=== PATIENT | male | born 1960 | race Caucasian/White ===

== ENCOUNTER 2017-10-23 14:51 | Emergency (ER) | payer OTHER | END 2017-10-23 15:34 | disposition home or self-care (01) | LOC: PHED 14:51 | DX: R60.0 Localized edema (principal); I10 Essential (primary) hypertension; Z72.0 Tobacco use; Z79.01 Long term (current) use of anticoagulants | CPT/HCPCS: 99281 ==

== ENCOUNTER 2017-11-21 10:52 | Emergency (ER) | payer OTHER ==
[~2017-11-21] VITALS: Ht 170.2 cm; Wt 78.6 kg
[~2017-11-21 10:52] MED LIST: ASPI-183 PO; ATEN50TA PO; ATOR20TA15 PO; CHLO25TA2 PO
[2017-11-21 11:22] VITALS: BP 106/53; PULSE 63; RESP 18; TEMP 98.2; O2SAT 97
[2017-11-21 11:33] LABS: BILIRUBIN, URINE NEG (NEG); BLOOD, URINE NEG (NEG); GLUCOSE,URINE NEG (NEG); KETONE, URINE NEG (NEG); NITRITE,URINE NEG (NEG); URINE LEUKOCYTE ESTERASE NEG (NEG)
[2017-11-21 11:37] LABS: URINE COLOR YELLOW (YELLW/STRAW)
[2017-11-21 11:39] LABS: HYALINE CAST, URINE 0-2 /lpf (RARE); SQUAMOUS EPITHELIAL CELL URINE 0-5 /hpf (0-5); WBC, URINE 0-2 /hpf (0-5)
[2017-11-21] MEDS ORDERED: HYDR50TA94 PO (11:41)
--- NOTE | 2017-11-21 11:51 | PD ---
HPI Chief Complaint: Complaint Time Seen by Provider: 11:48 Travel History International Travel<30 days: No Contact w/Intl Traveler<30days: No Traveled to known affect area: No History of Present Illness HPI 57-year-old male patient presents to the ER today, started having right testicular pain 2 weeks ago after he helped somebody move a piano. He states that he has noticed a lump in that area now. He denies any fevers, vomiting, difficulty making bowel movement, diarrhea, or other issues. He states it hurts with any kind of movement. [facility]. Modifying Factors: Worse with movement Associated Signs & Symptoms: 2 weeks of right testicular pain and lump Risk Factors: None PFSH Past Medical History Hx Anticoagulant Therapy: Yes (325 MG. ASA DAILY) Cardiovascular Problems: Yes High Cholesterol: Yes COPD: Yes Diabetes: No Hypertension: Yes Respiratory: Yes (MILD COPD) Influenza Vaccination: Yes Past Surgical History Cardiac Surgery: Yes (Cadaver aortic valve 2015) Cholecystectomy: Yes Social History Alcohol Use: No Tobacco Use: Yes (/2 PPD) Substance Use: Yes (MARIJUANA) Allergies-Medications (Allergen,Severity, Reaction): Coded Allergies: erythromycin base (Verified Allergy, Severe, HIVES, 11/21/17) fenoprofen (Verified Allergy, Severe, HIVES, 11/21/17) Reported Meds & Prescriptions Reported Meds & Active Scripts Active Reported Hydroxyzine HCl 50 Mg Tab 50 Mg PO TID Aspirin 325 Mg Tab 325 Mg PO DAILY Atorvastatin (Atorvastatin Calcium) 20 Mg Tab 20 Mg PO HS Atenolol 50 Mg Tab 50 Mg PO DAILY Chlorthalidone 25 Mg Tab Unknown Dose PO DAILY Review of Systems Except as stated in HPI: all other systems reviewed are Neg Physical Exam Narrative GENERAL: Well-developed middle-age male patient currently and mild distress. Awake and oriented 3. SKIN: Focused skin assessment warm/dry. HEAD: Atraumatic. Normocephalic. EYES: Pupils equal and round. No scleral icterus. No injection or drainage. ENT: No nasal bleeding or discharge. Mucous membranes pink and moist. NECK: Trachea midline. No JVD. CARDIOVASCULAR: Regular rate and rhythm. No murmur appreciated. RESPIRATORY: No accessory muscle use. Clear to auscultation. Breath sounds equal bilaterally. GASTROINTESTINAL: Abdomen soft, non-tender, nondistended. Hepatic and splenic margins not palpable. GENITOURINARY: Circumcised. Testes descended bilaterally without evidence of rotation. No lesions or erythema. No urethral discharge. There are no signs of groin masses, but I do palpate a right inguinal hernia which is reducible. MUSCULOSKELETAL: No obvious deformities. No clubbing. No cyanosis. No edema. NEUROLOGICAL: Awake and alert. No obvious cranial nerve deficits. Motor grossly within normal limits. Normal speech. PSYCHIATRIC: Appropriate mood and affect; insight and judgment normal. Data Data Last Documented VS Vital Signs Date Time Temp Pulse Resp B/P (MAP) Pulse Ox O2 Delivery O2 Flow Rate FiO2 11/21/17 11:22 98.2 63 18 106/53 (70) 97 Orders Orders Urinalysis - C+S If Indicated (11/21/17 11:04) Us Testicles W Doppler (11/21/17 11:48) Tramadol (Ultram) (11/21/17 12:00) Labs Laboratory Tests Test 11/21/17 11:21 Urine Collection Type CLEAN CATCH Urine Color YELLOW Urine Turbidity CLEAR Urine pH 6.0 Urine Specific [place] 1.014 Urine Protein NEG mg/dL Urine Glucose (UA) NEG mg/dL Urine Ketones NEG mg/dL Urine Occult Blood NEG Urine Nitrite NEG Urine Bilirubin NEG Urine Leukocyte Esterase NEG Urine WBC 0-2 /hpf Urine Squamous Epithelial Cells 0-5 /hpf Urine Hyaline Casts 0-2 /lpf Microscopic Urinalysis Comment CULT NOT INDICATED MDM Medical Decision Making Medical Screen Exam Complete: Yes Emergency Medical Condition: Yes Medical Record Reviewed: Yes Differential Diagnosis Incarcerated hernia versus reducible hernia versus testicular mass versus abscess versus torsion Narrative Course Ultrasound shows no signs of testicular torsion, testicle has good flow. On exam, he has a reducible right inguinal hernia. At this point, my plan would be to release him with follow-up to general surgery for further definitive therapy should this continue to bother him. Return for any worsening in pain, if he is unable to self reduce the hernia, or new issues as needed. The plan has been discussed with him and he states understanding. Diagnosis Primary Impression: Right inguinal hernia Med/Other Pt SpecificInfo: Prescription(s) given Scripts Tramadol (Tramadol) 50 Mg Tab 50 MG PO Q6H Y for PAIN, #15 TAB 0 Refills Prov: Estefani Spears MD 11/21/17 Disposition: 01 DISCHARGE HOME Condition: Stable Estefani Spears MD Nov 21, 2017 11:51
[2017-11-21] MEDS ORDERED: traMADol HCL 50 MG TAB PO ONE (12:00)
--- NOTE | 2017-11-21 12:35 | RADRPT ---
EXAM DATE/TIME: 11/21/2017 12:00 [facility] COMPARISON: No previous studies available for comparison. INDICATIONS : Testicle pain. MEDICAL HISTORY : Hypercholesterolemia. Hypertension. COPD. SURGICAL HISTORY : Cholecystectomy. ENCOUNTER: Initial ACUITY: 1 week PAIN SCORE: 10/10 LOCATION: Right testicle. MEASUREMENTS: RIGHT TESTICLE: 3.4 x 1.9 x 3.4cm LEFT TESTICLE: 2.8 x 1.7 x 2.7cm FINDINGS: Positive blood flow bilaterally. Small bilateral nerve disuse. No definite inguinal hernia. Tiny 4 mm cyst upper right testicle and 7 mm cyst right epididymis. No left-sided testicular abnormal ities. CONCLUSION: 1. Positive testicular blood flow without evidence for torsion. Small bilateral varicoceles. Small cy sts on the right. Mian Watkins MD on November 21, 2017 at 12:30 Board Certified Radiologist. This report was verified electronically.
[2017-11-21] MEDS ORDERED: TRAM50TA PO (12:40)
== END 2017-11-21 12:50 | disposition home or self-care (01) ==
LOC: PHED 10:52
DX: K40.90 Unilateral inguinal hernia, without obstruction or gangrene, not specified as recurrent (principal); I10 Essential (primary) hypertension; J44.9 Chronic obstructive pulmonary disease, unspecified; Z72.0 Tobacco use; Z79.01 Long term (current) use of anticoagulants
CPT/HCPCS: 76870; 81001; 93975; 99284

== ENCOUNTER 2017-11-25 12:06 | Emergency (ER) | payer OTHER ==
[~2017-11-25] VITALS: Ht 170.2 cm; Wt 75.0 kg
[2017-11-25 12:06] VITALS: BP 107/58; PULSE 89; RESP 16; TEMP 99; O2SAT 99
[~2017-11-25 12:06] MED LIST changes: +HYDR50TA94 PO; +TRAM50TA PO
[2017-11-25] MEDS ORDERED: SODIUM CHLOR 0.9% 1000 ML INJ 1,000 ML IV SCH (12:08)
[2017-11-25 12:09] VITALS: RESP 18; O2SAT 98
[2017-11-25] MEDS ORDERED: SODIUM CHLORIDE 0.9% FLUSH 10 ML FLUSH IV FLUSH PRN (12:15)
[2017-11-25] MEDS ORDERED: MORPHINE SULFATE 4 MG/ML INJ IV PUSH ONE (12:15)
[2017-11-25] MEDS ORDERED: HYDR50TA94 PO (12:49)
[2017-11-25] MEDS ORDERED: CHLO25TA2 PO (12:49)
[2017-11-25 13:24] VITALS: BP 125/68; PULSE 67; RESP 15; TEMP 98.6; O2SAT 99
[2017-11-25 13:51] LABS: AUTOMATED NEUTROPHIL # 4.1 TH/MM3 (1.8-7.7); BASOPHIL # 0.1 TH/MM3 (0-0.2); BASOPHIL % 0.9 % (0.0-2.0); EOSINOPHIL # 0.1 TH/MM3 (0-0.4); EOSINOPHIL % 2.1 % (0.0-4.0); HEMATOCRIT 36.2 % (39.0-51.0); HEMOGLOBIN 12.3 GM/DL (13.0-17.0); LYMPH % 16.2 % (9.0-44.0); LYMPHOCYTE # 0.9 TH/MM3 (1.0-4.8); MEAN CELL VOLUME 87.4 FL (80.0-100.0); MEAN CORPUSCULAR HEMOGLOBIN 29.8 PG (27.0-34.0); MEAN CORPUSCULAR HGB CONC 34.1 % (32.0-36.0); MEAN PLATELET VOLUME 8.4 FL (7.0-11.0); MONO % 8.5 % (0.0-8.0); MONOCYTE # 0.5 TH/MM3 (0-0.9); NEUT % 72.3 % (16.0-70.0); PLATELET COUNT 172 TH/MM3 (150-450); RED BLOOD COUNT 4.14 MIL/MM3 (4.50-5.90); RED CELL DISTRIBUTION WIDTH 13.8 % (11.6-17.2); WHITE BLOOD COUNT 5.7 TH/MM3 (4.0-11.0)
[2017-11-25 13:56] LABS: INTERNATIONAL NORMALIZED RATIO 1.4 RATIO
[2017-11-25 14:17] LABS: ALBUMIN 3.7 GM/DL (3.4-5.0); ALT (GPT) 28 U/L (12-78); AST (GOT) 41 U/L (15-37); BICARBONATE 27.5 MEQ/L (21.0-32.0); BLOOD UREA NITROGEN 18 MG/DL (7-18); CALCIUM 9.1 MG/DL (8.5-10.1); CHLORIDE 106 MEQ/L (98-107); CREATININE 1.23 MG/DL (0.60-1.30); GLOMERULAR FILTRATION RATE 60 ML/MIN (>89); GLUCOSE,RANDOM 86 MG/DL (74-106); SODIUM (NA) 138 MEQ/L (136-145)
[2017-11-25 14:19] LABS: ALKALINE PHOSPHATASE 158 U/L (45-117); TOTAL BILIRUBIN ADULT 0.9 MG/DL (0.2-1.0); TOTAL PROTEIN 7.4 GM/DL (6.4-8.2)
[2017-11-25] MEDS ORDERED: oxyCODONE/ACETAMINOPHEN 5 MG/325 MG TAB PO ONE (14:30)
[2017-11-25] MEDS ORDERED: IOHEXOL 350 MG/ML 10 ML VIAL (for RAD DIAG) IVCONTRAST ONE (14:50)
--- NOTE | 2017-11-25 15:14 | RADRPT ---
EXAM DATE/TIME: 11/25/2017 14:51 [facility] COMPARISON: No previous studies available for comparison. INDICATIONS : Right lower abdomen and groin pain for two weeks. IV CONTRAST: 82 cc Omnipaque 350 (iohexol) IV ORAL CONTRAST: No oral contrast ingested. RADIATION DOSE: 8.71 CTDIvol (mGy) MEDICAL HISTORY : Cardiovascular disease. Hypertension. SURGICAL HISTORY : Cholecystectomy. ENCOUNTER: Initial ACUITY: 2 weeks PAIN SCALE: 7/10 LOCATION: Right lower quadrant abdomen TECHNIQUE: Volumetric scanning of the abdomen and pelvis was performed. Using automated exposure control and ad justment of the mA and/or kV according to patient size, radiation dose was kept as low as reasonably achievable to obtain optimal diagnostic quality images. DICOM format image data is available electro nically for review and comparison. FINDINGS: LOWER LUNGS: The visualized lower lungs are clear. LIVER: Homogeneous density without lesion. There is no dilation of the biliary tree. No gallbladder was garcia rgically removed. There is trace of fluid adjacent to the liver.. SPLEEN: Normal size without lesion. There is a trace of fluid adjacent to the spleen. PANCREAS: Within normal limits. KIDNEYS: Normal in size and shape. There is no mass, stone or hydronephrosis. ADRENAL GLANDS: Within normal limits. VASCULAR: There is no aortic aneurysm. BOWEL/MESENTERY: The stomach, small bowel, and colon demonstrate no acute abnormality. There is no free intraperitone al air. There is a trace of fluid in the upper abdomen. There is nonspecific edema throughout the mes enteric fat of the abdomen and pelvis. There is also a edema in the body wall. There is stool through out the colon. No definite inflammatory changes are seen. There are some scattered diverticula along the descending and sigmoid colon. The appendix is unremarkable. ABDOMINAL WALL: There is nonspecific edema in the body wall. RETROPERITONEUM: There is no lymphadenopathy. BLADDER: No wall thickening or mass. REPRODUCTIVE: Within normal limits. INGUINAL: There is no lymphadenopathy or hernia. MUSCULOSKELETAL: Primary degenerative changes. CONCLUSION: 1. There is a trace of ascites in the upper abdomen. 2. There is nonspecific edema in the mesenteric fat and body wall. 3. Scattered diverticulosis of the descending and sigmoid colon without definite inflammatory changes . Blas Gambino MD on November 25, 2017 at 15:08 Board Certified Radiologist. This report was verified electronically.
[2017-11-25] MEDS ORDERED: NORC5TAB PO (15:33)
[2017-11-25] MEDS ORDERED: COLA100C5 PO (15:33)
--- NOTE | 2017-11-25 15:33 | PD ---
HPI Chief Complaint: Abdominal Pain Time Seen by Provider: 12:08 Travel History International Travel<30 days: No Contact w/Intl Traveler<30days: No Traveled to known affect area: No History of Present Illness HPI Patient is a 57-year-old male who comes in complaining of a hernia. He says he has been having pain for the past 3 weeks with swelling in his right testicle. He says it keeps popping out and he is able to push it back in. He says he went to the [place], and they told him to come here to have surgery. He was here 4 days ago and was discharged home to follow-up with general surgery. He has not taken anything for his pain. It seems that movement seems to make the pain worse. He says he is having constipation, his last bowel movement was yesterday. He denies any nausea or vomiting. He denies fever or chills. Severity is mild to moderate. PFSH Past Medical History Hx Anticoagulant Therapy: Yes (325 MG. ASA DAILY) Cardiovascular Problems: Yes High Cholesterol: Yes COPD: Yes Diabetes: No Diminished Hearing: No Hypertension: Yes Respiratory: Yes (MILD COPD) Tetanus Vaccination: < 5 Years Influenza Vaccination: Yes Past Surgical History Cardiac Surgery: Yes (Cadaver aortic valve 2016) Cholecystectomy: Yes Social History Alcohol Use: No Tobacco Use: Yes (1/2 PPD) Substance Use: Yes (MARIJUANA) Allergies-Medications (Allergen,Severity, Reaction): Coded Allergies: erythromycin base (Verified Allergy, Severe, HIVES, 11/25/17) fenoprofen (Verified Allergy, Severe, HIVES, 11/25/17) Reported Meds & Prescriptions Reported Meds & Active Scripts Active Oxycodone (Oxycodone HCl) 5 Mg Cap 5 Mg PO Q6H PRN Colace (Docusate Sodium) 100 Mg Capsule 100 Mg PO HS Tramadol (Tramadol HCl) 50 Mg Tab 50 Mg PO Q6H PRN Reported Hydroxyzine HCl 50 Mg Tab 50 Mg PO BID PRN Chlorthalidone 25 Mg Tab 25 Mg PO DAILY Aspirin 325 Mg Tab 325 Mg PO DAILY Atorvastatin (Atorvastatin Calcium) 20 Mg Tab 20 Mg PO HS Atenolol 50 Mg Tab 50 Mg PO DAILY Review of Systems Except as stated in HPI: all other systems reviewed are Neg General / Constitutional: No: Fever, Chills HENT: No: Headaches, Lightheadedness Cardiovascular: No: Chest Pain or Discomfort Respiratory: No: Shortness of Breath Gastrointestinal: Positive: Abdominal Pain, Constipation, No: Nausea, Vomiting Musculoskeletal: No: Myalgias, Edema Skin: No Rash, No Change in Pigmentation Neurologic: No: Weakness, Dizziness Physical Exam Narrative GENERAL: Awake and alert, no acute distress. SKIN: Focused skin assessment warm/dry. No wounds or signs of infection. HEAD: Atraumatic. Normocephalic. EYES: Pupils equal and round. No scleral icterus. ENT: Mucous membranes pink and moist. NECK: Trachea midline. No JVD. CARDIOVASCULAR: Regular rate and rhythm. No murmur appreciated. RESPIRATORY: No accessory muscle use. Clear to auscultation. Breath sounds equal bilaterally. GASTROINTESTINAL: Abdomen soft, non-tender, nondistended. Inguinal hernia has been fully reduced. MUSCULOSKELETAL: No obvious deformities. No clubbing. No cyanosis. No edema. NEUROLOGICAL: Awake and alert. No obvious cranial nerve deficits. Motor grossly within normal limits. Normal speech. PSYCHIATRIC: Appropriate mood and affect; insight and judgment normal. Data Data Last Documented VS Vital Signs Date Time Temp Pulse Resp B/P (MAP) Pulse Ox O2 Delivery O2 Flow Rate FiO2 11/25/17 13:24 98.6 67 15 125/68 (87) 99 Room Air Orders Orders Complete Blood Count With Diff (11/25/17 12:08) Comprehensive Metabolic Panel (11/25/17 12:08) Lactic Acid (11/25/17 12:08) Prothrombin Time / Inr (Pt) (11/25/17 12:08) Act Partial Throm Time (Ptt) (11/25/17 12:08) Ct Abd/Pel W Iv Contrast(Rout) (11/25/17 12:08) Iv Access Insert/Monitor (11/25/17 12:08) Ecg Monitoring (11/25/17 12:08) Oximetry (11/25/17 12:08) Morphine Inj (Morphine Inj) (11/25/17 12:15) Sodium Chlor 0.9% 1000 Ml Inj (Ns 1000 M (11/25/17 12:08) Sodium Chloride 0.9% Flush (Ns Flush) (11/25/17 12:15) Oxycodone-Acetamin 5-325 Mg (Percocet (11/25/17 14:30) Iohexol 350 Inj (Omnipaque 350 Inj) (11/25/17 14:50) Mandatory Outpatient Referral (11/25/17 15:33) Ed Discharge Order (11/25/17 15:33) Labs Laboratory Tests Test 11/25/17 11:52 11/25/17 12:40 White Blood Count 5.7 TH/MM3 Red Blood Count 4.14 MIL/MM3 Hemoglobin 12.3 GM/DL Hematocrit 36.2 % Mean Corpuscular Volume 87.4 FL Mean Corpuscular Hemoglobin 29.8 PG Mean Corpuscular Hemoglobin Concent 34.1 % Red Cell Distribution Width 13.8 % Platelet Count 172 TH/MM3 Mean Platelet Volume 8.4 FL Neutrophils (%) (Auto) 72.3 % Lymphocytes (%) (Auto) 16.2 % Monocytes (%) (Auto) 8.5 % Eosinophils (%) (Auto) 2.1 % Basophils (%) (Auto) 0.9 % Neutrophils # (Auto) 4.1 TH/MM3 Lymphocytes # (Auto) 0.9 TH/MM3 Monocytes # (Auto) 0.5 TH/MM3 Eosinophils # (Auto) 0.1 TH/MM3 Basophils # (Auto) 0.1 TH/MM3 CBC Comment DIFF FINAL Differential Comment Prothrombin Time 14.0 SEC Prothromb Time International Ratio 1.4 RATIO Activated Partial Thromboplast Time 29.2 SEC Blood Urea Nitrogen 18 MG/DL Creatinine 1.23 MG/DL Random Glucose 86 MG/DL Total Protein 7.4 GM/DL Albumin 3.7 GM/DL Calcium Level 9.1 MG/DL Alkaline Phosphatase 158 U/L Aspartate Amino Transf (AST/SGOT) 41 U/L Alanine Aminotransferase (ALT/SGPT) 28 U/L Total Bilirubin 0.9 MG/DL Sodium Level 138 MEQ/L Potassium Level 4.1 MEQ/L Chloride Level 106 MEQ/L Carbon Dioxide Level 27.5 MEQ/L Anion Gap 5 MEQ/L Estimat Glomerular Filtration Rate 60 ML/MIN Lactic Acid Level 0.8 mmol/L MDM Medical Decision Making Medical Screen Exam Complete: Yes Emergency Medical Condition: Yes Medical Record Reviewed: Yes Differential Diagnosis Strangulated hernia versus incarcerated hernia versus constipation Narrative Course Patient is a 57-year-old male comes in complaining of hernia pain. Exam shows a completely reduced hernia, no abnormalities. IV established, labs sent. Labs show no acute abnormalities. CT abdomen and pelvis shows some nonspecific findings. Last 24 hours Impressions Abdomen/Pelvis CT 11/25/17 1208 Signed Impressions: Service Date/Time: Saturday, November 25, 2017 14:51 - CONCLUSION: 1. There is a trace of ascites in the upper abdomen. 2. There is nonspecific edema in the mesenteric fat and body wall. 3. Scattered diverticulosis of the descending and sigmoid colon without definite inflammatory changes. Blas Gambino MD Patient given pain medicine. He is advised to follow-up as an outpatient with a general surgeon to have elective repair of his inguinal hernia. Referral placed for the patient. Patient discharged with prescriptions for pain medicine as well as Colace. Advised the pain medicine may make him more constipated. Advised follow-up with a primary care doctor. Advised to return to the ED as needed for any worsening symptoms. Diagnosis Primary Impression: Inguinal hernia Qualified Codes: K40.90 - Unilateral inguinal hernia, without obstruction or gangrene, not specified as recurrent Referrals: Alexy Paige MD call for appointment Patient Instructions: General Instructions, Inguinal Hernia (ED) Additional Instructions: Take pain medicine as needed. Be careful as it may make you more constipated. Follow up with general surgery. Return to the ED as needed for any worsening symptoms. Scripts Oxycodone (Oxycodone) 5 Mg Cap 5 MG PO Q6H Y for PAIN, #10 CAP 0 Refills Prov: Briana Cerda MD 11/25/17 Docusate Sodium (Colace) 100 Mg Capsule 100 MG PO HS for Prevent Constipation, #30 CAP 0 Refills Prov: Briana Cerda MD 11/25/17 Disposition: DISCHARGE HOME Condition: Stable Briana Cerda MD Nov 25, 2017 15:33
[2017-11-25 15:37] VITALS: RESP 15
[2017-11-25] MEDS ORDERED: OXYC1CAP PO (15:39)
[2017-11-25 15:42] VITALS: BP 133/76; TEMP 97.8
== END 2017-11-25 15:42 | disposition home or self-care (01) ==
LOC: NEPC 12:06
DX: K40.90 Unilateral inguinal hernia, without obstruction or gangrene, not specified as recurrent (principal); K57.30 Diverticulosis of large intestine without perforation or abscess without bleeding; I10 Essential (primary) hypertension; I25.10 Atherosclerotic heart disease of native coronary artery without angina pectoris; J44.9 Chronic obstructive pulmonary disease, unspecified; E78.00 Pure hypercholesterolemia, unspecified; F17.210 Nicotine dependence, cigarettes, uncomplicated; Z88.1 Allergy status to other antibiotic agents; Z79.82 Long term (current) use of aspirin; Z79.899 Other long term (current) drug therapy
CPT/HCPCS: 74177; 80053; 83605; 85025; 85610; 85730; 96361; 96374; 99285; J2270; J7030; Q9967

== ENCOUNTER 2017-12-01 10:17 | Emergency (ER) | payer OTHER ==
[~2017-12-01] VITALS: Ht 167.6 cm; Wt 80.0 kg
[~2017-12-01 10:17] MED LIST changes: +COLA100C5 PO; +OXYC1CAP PO
[2017-12-01 10:27] VITALS: BP 124/84; PULSE 81; RESP 16; TEMP 97.8; O2SAT 99
[2017-12-01 10:41] VITALS: O2SAT 99
[2017-12-01] MEDS ORDERED: SODIUM CHLORIDE 0.9% FLUSH 10 ML FLUSH IVF PRN (10:45)
--- NOTE | 2017-12-01 10:55 | PD ---
HPI Chief Complaint: Cardiac Complaint Time Seen by Provider: 10:30 Travel History International Travel<30 days: No Contact w/Intl Traveler<30days: No Traveled to known affect area: No History of Present Illness HPI This is a 57-year-old male who presents for palpitations. He states that this morning, it felt like his heart was racing. He had not yet taken his beta- melanie which he usually does first thing. He then took his beta-melanie and the palpitations subsided. He also states that he had more salt than usual last night. He is not sure if this is contributing. No chest pain, shortness of breath or diaphoresis. He has been otherwise well without vomiting, diarrhea , cough, congestion. Symptoms are mild in severity. Onset gradual. He did take his daily medication this morning. No known alleviating or aggravating factors. No syncope or lightheadedness. Patient states that he has had atrial fibrillation in the past. PFSH Past Medical History Hx Anticoagulant Therapy: Yes (325 MG. ASA DAILY) Cardiovascular Problems: Yes High Cholesterol: Yes COPD: Yes Coronary Artery Disease: Yes Diabetes: No Diminished Hearing: No Hypertension: Yes Respiratory: Yes (MILD COPD) Past Surgical History Cardiac Surgery: Yes (Cadaver aortic valve 2016) Cholecystectomy: Yes Social History Alcohol Use: No Tobacco Use: Yes (2 PPD) Substance Use: Yes (MARIJUANA) Allergies-Medications (Allergen,Severity, Reaction): Coded Allergies: erythromycin base (Verified Allergy, Severe, HIVES, 12/01/17) fenoprofen (Verified Allergy, Severe, HIVES, 12/01/17) Reported Meds & Prescriptions Reported Meds & Active Scripts Active Colace (Docusate Sodium) 100 Mg Capsule 100 Mg PO HS Tramadol (Tramadol HCl) 50 Mg Tab 50 Mg PO Q6H PRN Reported Hydroxyzine HCl 50 Mg Tab 50 Mg PO BID PRN Chlorthalidone 25 Mg Tab 25 Mg PO DAILY Aspirin 325 Mg Tab 325 Mg PO DAILY Atorvastatin (Atorvastatin Calcium) 20 Mg Tab 20 Mg PO HS Atenolol 50 Mg Tab 50 Mg PO DAILY Review of Systems Except as stated in HPI: all other systems reviewed are Neg Physical Exam Narrative GENERAL: Alert, well nourished, well appearing patient resting on the bed in no acute distress. Vital Signs reviewed SKIN: Focused skin assessment warm/dry. HEAD: Atraumatic. Normocephalic. EYES: Pupils equal and round. No scleral icterus. No injection or drainage. ENT: No nasal bleeding or discharge. Mucous membranes pink and moist. NECK: Trachea midline. No JVD. Spontaneous, painless full range of motion with no meningismus CARDIOVASCULAR: Regular rate and rhythm. No murmur appreciated. Extremities warm and well perfused with bounding peripheral pulses RESPIRATORY: No accessory muscle use. Clear to auscultation. Breath sounds equal bilaterally. Breathing easily and speaking in full sentences GASTROINTESTINAL: Abdomen soft, non-tender, nondistended. Normal bowel sounds. No rigid, rebound, guarding MUSCULOSKELETAL: No obvious deformities. No clubbing. No cyanosis. No edema. Compartments are soft NEUROLOGICAL: Awake and alert. No obvious cranial nerve deficits. Motor grossly within normal limits. Normal speech. Sensation intact. Normal gait Data Data Last Documented VS Vital Signs Date Time Temp Pulse Resp B/P (MAP) Pulse Ox O2 Delivery O2 Flow Rate FiO2 12/01/17 10:41 99 12/01/17 10:38 79 18 Room Air 12/01/17 10:27 97.8 124/84 (97) Orders Orders Electrocardiogram (12/01/17 10:38) Basic Metabolic Panel (Bmp) (12/01/17 10:38) Ckmb (Isoenzyme) Profile (12/01/17 10:38) Complete Blood Count With Diff (12/01/17 10:38) Magnesium (Mg) (12/01/17 10:38) Prothrombin Time / Inr (Pt) (12/01/17 10:38) Act Partial Throm Time (Ptt) (12/01/17 10:38) Troponin I (12/01/17 10:38) Ecg Monitoring (12/01/17 10:38) Iv Access Insert/Monitor (12/01/17 10:38) Oximetry (12/01/17 10:38) Sodium Chloride 0.9% Flush (Ns Flush) (12/01/17 10:45) Chest, Pa & Lat (12/01/17 10:38) Ondansetron Inj (Zofran Inj) (12/01/17 11:00) Ondansetron Odt (Zofran Odt) (12/01/17 11:00) Ed Discharge Order (12/01/17 11:31) Labs Laboratory Tests Test 12/01/17 10:52 12/01/17 11:20 Prothrombin Time 13.0 SEC Prothromb Time International Ratio 1.3 RATIO Activated Partial Thromboplast Time 26.9 SEC Blood Urea Nitrogen 19 MG/DL Creatinine 1.20 MG/DL Random Glucose 98 MG/DL Calcium Level 8.4 MG/DL Magnesium Level 2.0 MG/DL Sodium Level 137 MEQ/L Potassium Level 4.9 MEQ/L Chloride Level 104 MEQ/L Carbon Dioxide Level 26.5 MEQ/L Anion Gap 7 MEQ/L Estimat Glomerular Filtration Rate 62 ML/MIN Total Creatine Kinase 98 U/L Troponin I LESS THAN 0.02 NG/ML White Blood Count 4.3 TH/MM3 Red Blood Count 4.02 MIL/MM3 Hemoglobin 12.1 GM/DL Hematocrit 35.5 % Mean Corpuscular Volume 88.4 FL Mean Corpuscular Hemoglobin 30.0 PG Mean Corpuscular Hemoglobin Concent 33.9 % Red Cell Distribution Width 13.4 % Platelet Count 184 TH/MM3 Mean Platelet Volume 7.4 FL Neutrophils (%) (Auto) 63.2 % Lymphocytes (%) (Auto) 17.6 % Monocytes (%) (Auto) 13.0 % Eosinophils (%) (Auto) 5.3 % Basophils (%) (Auto) 0.9 % Neutrophils # (Auto) 2.7 TH/MM3 Lymphocytes # (Auto) 0.8 TH/MM3 Monocytes # (Auto) 0.6 TH/MM3 Eosinophils # (Auto) 0.2 TH/MM3 Basophils # (Auto) 0.0 TH/MM3 CBC Comment DIFF FINAL Differential Comment MDM Medical Decision Making Medical Screen Exam Complete: Yes Emergency Medical Condition: Yes Medical Record Reviewed: Yes Interpretation(s) EKG shows sinus rhythm with a rate of 73. Left bundle branch block is present. Chest x-ray shows no acute process Laboratory Tests Test 12/01/17 10:52 12/01/17 11:20 Prothrombin Time 13.0 SEC Prothromb Time International Ratio 1.3 RATIO Activated Partial Thromboplast Time 26.9 SEC Blood Urea Nitrogen 19 MG/DL Creatinine 1.20 MG/DL Random Glucose 98 MG/DL Calcium Level 8.4 MG/DL Magnesium Level 2.0 MG/DL Sodium Level 137 MEQ/L Potassium Level 4.9 MEQ/L Chloride Level 104 MEQ/L Carbon Dioxide Level 26.5 MEQ/L Anion Gap 7 MEQ/L Estimat Glomerular Filtration Rate 62 ML/MIN Total Creatine Kinase 98 U/L Troponin I LESS THAN 0.02 NG/ML White Blood Count 4.3 TH/MM3 Red Blood Count 4.02 MIL/MM3 Hemoglobin 12.1 GM/DL Hematocrit 35.5 % Mean Corpuscular Volume 88.4 FL Mean Corpuscular Hemoglobin 30.0 PG Mean Corpuscular Hemoglobin Concent 33.9 % Red Cell Distribution Width 13.4 % Platelet Count 184 TH/MM3 Mean Platelet Volume 7.4 FL Neutrophils (%) (Auto) 63.2 % Lymphocytes (%) (Auto) 17.6 % Monocytes (%) (Auto) 13.0 % Eosinophils (%) (Auto) 5.3 % Basophils (%) (Auto) 0.9 % Neutrophils # (Auto) 2.7 TH/MM3 Lymphocytes # (Auto) 0.8 TH/MM3 Monocytes # (Auto) 0.6 TH/MM3 Eosinophils # (Auto) 0.2 TH/MM3 Basophils # (Auto) 0.0 TH/MM3 CBC Comment DIFF FINAL Differential Comment Differential Diagnosis Atrial fibrillation, PVCs, anxiety, electrolyte abnormality, atypical angina Narrative Course Patient was placed on a management technician. IV access was established. Labs, imaging were performed. Patient is in normal sinus rhythm. He has had no arrhythmia while in the emergency department. He is no longer feeling palpitations. He has had no chest pain or shortness of breath or diaphoresis. Patient is stable for discharge with supportive care and close outpatient follow -up with primary physician and compressor assembler. He understands he needs to follow- up in 3 days. He understands it is his responsibility to establish and follow through with these appointments. Patient understands the importance of close outpatient follow-up. He understands he may require further testing and treatment as an outpatient. He understands strict return indications. He is comfortable with this plan and eager to go home. Diagnosis Primary Impression: Intermittent palpitations Referrals: Estate Tax Examiner 3 days Primary Care Physician 3 days Patient Instructions: General Instructions, Heart Palpitations (DC) Additional Instructions: Continue current home medications. You must follow-up with primary physician and compressor assembler within 3 days. Call today to make the appointment. You may require further testing and treatment as an outpatient. Med/Other Pt SpecificInfo: No Change to Meds Disposition: 01 DISCHARGE HOME Condition: Stable RyanJanice. MD Dec 01, 2017 10:54
[2017-12-01] MEDS ORDERED: ONDANSETRON HCL 4 MG/2 ML VIAL IV PUSH ONE (11:00)
[2017-12-01] MEDS ORDERED: ONDANSETRON ODT 4 MG TAB PO ONE (11:00)
[2017-12-01 11:08] LABS: CHLORIDE 104 MEQ/L (98-107); SODIUM (NA) 137 MEQ/L (136-145)
[2017-12-01 11:11] LABS: BICARBONATE 26.5 MEQ/L (21.0-32.0); BLOOD UREA NITROGEN 19 MG/DL (7-18); CALCIUM 8.4 MG/DL (8.5-10.1); GLUCOSE,RANDOM 98 MG/DL (74-106); INTERNATIONAL NORMALIZED RATIO 1.3 RATIO
[2017-12-01 11:15] LABS: GLOMERULAR FILTRATION RATE 62 ML/MIN (>89)
[2017-12-01 11:19] LABS: TROPONIN I LESS THAN 0.02 NG/ML (0.02-0.05)
[2017-12-01 11:26] LABS: AUTOMATED NEUTROPHIL # 2.7 TH/MM3 (1.8-7.7); BASOPHIL % 0.9 % (0.0-2.0); EOSINOPHIL # 0.2 TH/MM3 (0-0.4); EOSINOPHIL % 5.3 % (0.0-4.0); HEMATOCRIT 35.5 % (39.0-51.0); HEMOGLOBIN 12.1 GM/DL (13.0-17.0); LYMPH % 17.6 % (9.0-44.0); LYMPHOCYTE # 0.8 TH/MM3 (1.0-4.8); MEAN CELL VOLUME 88.4 FL (80.0-100.0); MEAN CORPUSCULAR HGB CONC 33.9 % (32.0-36.0); MEAN PLATELET VOLUME 7.4 FL (7.0-11.0); MONOCYTE # 0.6 TH/MM3 (0-0.9); NEUT % 63.2 % (16.0-70.0); PLATELET COUNT 184 TH/MM3 (150-450); RED BLOOD COUNT 4.02 MIL/MM3 (4.50-5.90); RED CELL DISTRIBUTION WIDTH 13.4 % (11.6-17.2); WHITE BLOOD COUNT 4.3 TH/MM3 (4.0-11.0)
--- NOTE | 2017-12-01 11:28 | RADRPT ---
EXAM DATE/TIME: 12/01/2017 10:45 [facility] COMPARISON: No previous studies available for comparison. INDICATIONS : Heart palpatations & high blood pressure. MEDICAL HISTORY : Hypercholesterolemia. Chronic obstructive pulmonary disease. Hypertension. CAD. A-fib. SURGICAL HISTORY : CABG. Fusion, cervical. ENCOUNTER: Initial ACUITY: 1 day PAIN SCORE: 0/10 LOCATION: chest FINDINGS: Median sternotomy wires, mediastinal clips, ACDF hardware overlying the cervical spine noted. There a re degenerative changes of the thoracic spine. The lungs are clear. Cardiomegaly. CONCLUSION: No acute disease. Jayden Rico MD on December 01, 2017 at 11:26 Board Certified Radiologist. This report was verified electronically.
--- NOTE | 2017-12-02 10:13 | EKG ---
Date Performed: 12/01/2017 Time Performed: 10:38:59 PTAGE: 57 years EKG: Sinus rhythm WITH FIRST DEGREE AV BLOCK LEFT BUNDLE BRANCH BLOCK ABNORMAL ECG NO PREVIOUS TRACING DOCTOR: Pablo Polo Interpretating Date/Time 12/02/2017 10:11:11
== END 2017-12-01 11:45 | disposition home or self-care (01) ==
LOC: PHED 10:17
DX: R00.2 Palpitations (principal); I10 Essential (primary) hypertension; I25.10 Atherosclerotic heart disease of native coronary artery without angina pectoris; I48.91 Unspecified atrial fibrillation; E78.00 Pure hypercholesterolemia, unspecified; J44.9 Chronic obstructive pulmonary disease, unspecified; F17.210 Nicotine dependence, cigarettes, uncomplicated; Z88.1 Allergy status to other antibiotic agents; Z88.8 Allergy status to other drugs, medicaments and biological substances; Z79.82 Long term (current) use of aspirin; Z79.899 Other long term (current) drug therapy
CPT/HCPCS: 71046; 80048; 82550; 83735; 84484; 85025; 85610; 85730; 93005; 99285

== ENCOUNTER 2017-12-08 16:44 | Inpatient (IN) | payer OTHER ==
[~2017-12-08] VITALS: Ht 175.3 cm; Wt 79.9 kg
[~2017-12-08 16:44] MED LIST changes: -OXYC1CAP PO
[2017-12-08 16:54] VITALS: BP 148/82; PULSE 80; RESP 16; TEMP 99; O2SAT 98
[2017-12-08] MEDS ORDERED: DIATRIZOATE MEGLUM/DIATRIZOATE SOD 9 ML CUP ONE (17:23)
[2017-12-08 17:34] VITALS: BP 134/87; PULSE 70; RESP 20; O2SAT 98
[2017-12-08 17:40] LABS: AUTOMATED NEUTROPHIL # 3.6 TH/MM3 (1.8-7.7); BASOPHIL # 0.1 TH/MM3 (0-0.2); BASOPHIL % 2.3 % (0.0-2.0); EOSINOPHIL # 0.3 TH/MM3 (0-0.4); EOSINOPHIL % 5.3 % (0.0-4.0); HEMATOCRIT 36.3 % (39.0-51.0); HEMOGLOBIN 11.7 GM/DL (13.0-17.0); LYMPH % 17.9 % (9.0-44.0); MEAN CELL VOLUME 88.1 FL (80.0-100.0); MEAN CORPUSCULAR HEMOGLOBIN 28.4 PG (27.0-34.0); MEAN CORPUSCULAR HGB CONC 32.3 % (32.0-36.0); MEAN PLATELET VOLUME 7.6 FL (7.0-11.0); MONO % 9.3 % (0.0-8.0); MONOCYTE # 0.5 TH/MM3 (0-0.9); NEUT % 65.2 % (16.0-70.0); PLATELET COUNT 177 TH/MM3 (150-450); RED BLOOD COUNT 4.11 MIL/MM3 (4.50-5.90); RED CELL DISTRIBUTION WIDTH 13.4 % (11.6-17.2); WHITE BLOOD COUNT 5.5 TH/MM3 (4.0-11.0)
[2017-12-08] MEDS ORDERED: ONDANSETRON HCL 4 MG/2 ML VIAL IV PUSH ONE (17:45)
[2017-12-08] MEDS ORDERED: MORPHINE SULFATE 2 MG/ML INJ IV PUSH ONE (17:45)
[2017-12-08 17:52] LABS: CHLORIDE 103 MEQ/L (98-107); SODIUM (NA) 137 MEQ/L (136-145)
[2017-12-08 17:55] LABS: CALCIUM 9.2 MG/DL (8.5-10.1)
[2017-12-08 17:56] LABS: ALBUMIN 3.7 GM/DL (3.4-5.0); BICARBONATE 28.3 MEQ/L (21.0-32.0); BLOOD UREA NITROGEN 28 MG/DL (7-18); GLUCOSE,RANDOM 91 MG/DL (74-106)
[2017-12-08 17:59] LABS: ALT (GPT) 33 U/L (12-78); AST (GOT) 46 U/L (15-37); GLOMERULAR FILTRATION RATE 57 ML/MIN (>89)
[2017-12-08 18:00] LABS: TOTAL BILIRUBIN ADULT 0.7 MG/DL (0.2-1.0); TOTAL PROTEIN 7.8 GM/DL (6.4-8.2)
[2017-12-08 18:02] LABS: ALKALINE PHOSPHATASE 228 U/L (45-117)
[2017-12-08 18:15] LABS: INTERNATIONAL NORMALIZED RATIO 1.3 RATIO; PROTHROMBIN TIME - PATIENT 13.3 SEC (9.8-11.6)
--- NOTE | 2017-12-08 18:19 | PD ---
HPI Chief Complaint: Lump, Cyst, Hernia Time Seen by Provider: 16:50 Travel History International Travel<30 days: No Contact w/Intl Traveler<30days: No Traveled to known affect area: No History of Present Illness HPI This is a 57-year-old male who presented to the ER complaining of lower abdominal pain. Patient has history of right inguinal hernia and he was here back in November and hernia was reducible at that time and he was discharged with pain medications and constipation medications. For the last few weeks he says that the hernia was popping out and was able to push it back in place but in the last few days he noticed that pain is unbearable and is unable to push the hernia back in place. Pain is located in the right lower pelvic area, 8 out of 10, dull, radiates to the pelvis, nothing makes it better or worse. He denies any fevers chills or night sweats last bowel movement was this morning which was normal, patient is able to pass gas with no problems. PFSH Past Medical History Hx Anticoagulant Therapy: Yes (325 MG. ASA DAILY) Cardiovascular Problems: Yes High Cholesterol: Yes COPD: Yes Coronary Artery Disease: Yes Diabetes: No Diminished Hearing: No Hypertension: Yes Respiratory: Yes (MILD COPD) Tetanus Vaccination: < 5 Years Influenza Vaccination: Yes Past Surgical History Cardiac Surgery: Yes (Cadaver aortic valve 2015) Cholecystectomy: Yes Social History Alcohol Use: No Tobacco Use: Yes (1/2 PPD) Substance Use: Yes (MARIJUANA) Allergies-Medications (Allergen,Severity, Reaction): Coded Allergies: erythromycin base (Verified Allergy, Severe, HIVES, 12/08/17) fenoprofen (Verified Allergy, Severe, HIVES, 12/08/17) Reported Meds & Prescriptions Reported Meds & Active Scripts Active Reported Hydroxyzine HCl 50 Mg Tab 50 Mg PO BID PRN Aspirin 325 Mg Tab 325 Mg PO DAILY Atorvastatin (Atorvastatin Calcium) 20 Mg Tab 20 Mg PO HS Atenolol 50 Mg Tab 50 Mg PO DAILY Review of Systems Except as stated in HPI: all other systems reviewed are Neg General / Constitutional: No: Fever Eyes: No: Diploplia HENT: No: Headaches Cardiovascular: No: Chest Pain or Discomfort Physical Exam Narrative GENERAL: Alert 3 no acute distress. SKIN: Focused skin assessment warm/dry. HEAD: Atraumatic. Normocephalic. EYES: Pupils equal and round. No scleral icterus. No injection or drainage. ENT: No nasal bleeding or discharge. Mucous membranes pink and moist. NECK: Trachea midline. No JVD. CARDIOVASCULAR: Regular rate and rhythm. No murmur appreciated. RESPIRATORY: No accessory muscle use. Clear to auscultation. Breath sounds equal bilaterally. GASTROINTESTINAL: Small right inguinal hernia, severely tender to palpation, unable to reduce it due to pain. Abdomen soft, non-tender, nondistended. Hepatic and splenic margins not palpable. MUSCULOSKELETAL: No obvious deformities. No clubbing. No cyanosis. No edema. NEUROLOGICAL: Awake and alert. No obvious cranial nerve deficits. Motor grossly within normal limits. Normal speech. PSYCHIATRIC: Appropriate mood and affect; insight and judgment normal. Data Data Last Documented VS Vital Signs Date Time Temp Pulse Resp B/P (MAP) Pulse Ox O2 Delivery O2 Flow Rate FiO2 12/08/17 17:34 70 20 134/87 (103) 98 Room Air 12/08/17 16:[address] Abd/Pel W/O Iv Contrast (12/08/17 ) Comprehensive Metabolic Panel (12/08/17 17:03) Complete Blood Count With Diff (12/08/17 17:03) Lipase (12/08/17 17:03) Prothrombin Time / Inr (Pt) (12/08/17 17:03) Act Partial Throm Time (Ptt) (12/08/17 17:03) Diatrizoate Liq ( Gastroview Liq) (12/08/17 17:23) Morphine Inj (Morphine Inj) (12/08/17 17:45) Ondansetron Inj (Zofran Inj) (12/08/17 17:45) Morphine Inj (Morphine Inj) (12/08/17 18:45) Labs Laboratory Tests Test 12/08/17 17:25 White Blood Count 5.5 TH/MM3 Red Blood Count 4.11 MIL/MM3 Hemoglobin 11.7 GM/DL Hematocrit 36.3 % Mean Corpuscular Volume 88.1 FL Mean Corpuscular Hemoglobin 28.4 PG Mean Corpuscular Hemoglobin Concent 32.3 % Red Cell Distribution Width 13.4 % Platelet Count 177 TH/MM3 Mean Platelet Volume 7.6 FL Neutrophils (%) (Auto) 65.2 % Lymphocytes (%) (Auto) 17.9 % Monocytes (%) (Auto) 9.3 % Eosinophils (%) (Auto) 5.3 % Basophils (%) (Auto) 2.3 % Neutrophils # (Auto) 3.6 TH/MM3 Lymphocytes # (Auto) 1.0 TH/MM3 Monocytes # (Auto) 0.5 TH/MM3 Eosinophils # (Auto) 0.3 TH/MM3 Basophils # (Auto) 0.1 TH/MM3 CBC Comment DIFF FINAL Differential Comment Prothrombin Time 13.3 SEC Prothromb Time International Ratio 1.3 RATIO Activated Partial Thromboplast Time 27.2 SEC Blood Urea Nitrogen 28 MG/DL Creatinine 1.30 MG/DL Random Glucose 91 MG/DL Total Protein 7.8 GM/DL Albumin 3.7 GM/DL Calcium Level 9.2 MG/DL Alkaline Phosphatase 228 U/L Aspartate Amino Transf (AST/SGOT) 46 U/L Alanine Aminotransferase (ALT/SGPT) 33 U/L Total Bilirubin 0.7 MG/DL Sodium Level 137 MEQ/L Potassium Level 4.9 MEQ/L Chloride Level 103 MEQ/L Carbon Dioxide Level 28.3 MEQ/L Anion Gap 6 MEQ/L Estimat Glomerular Filtration Rate 57 ML/MIN Lipase 107 U/L MDM Medical Decision Making Medical Screen Exam Complete: Yes Emergency Medical Condition: Yes Differential Diagnosis Incarcerated versus strangulated hernia, constipation, bowel obstruction. Narrative Course This is a 57-year-old male who presents the ER complaining of right inguinal hernia that has been more painful in the last few days. Patient says that he used to be able to push it back and please but now is unable to. At the ER I tried to reduce the hernia but the patient was in severe pain even after [address] scan was ordered and is pending results. Patient will be signed out to the next team. Pending disposition. Diagnosis Primary Impression: Inguinal hernia Qualified Codes: K40.91 - Unilateral inguinal hernia, without obstruction or gangrene, recurrent Condition: Stable Lasha Cantu MD Dec 08, 2017 18:19
[2017-12-08] MEDS ORDERED: MORPHINE SULFATE 4 MG/ML INJ IV PUSH ONE (18:45)
--- NOTE | 2017-12-08 19:32 | PD ---
Physical Exam Time Seen by Provider: 19:[address] Corrales with this patient with me to check the results of the CT scan and make a disposition. He was unable to reduce the hernia. Data Data Last Documented VS Vital Signs Date Time Temp Pulse Resp B/P (MAP) Pulse Ox O2 Delivery O2 Flow Rate FiO2 12/08/17 19:35 68 16 108/58 (75) 98 Room Air 12/08/17 16:[address] Abd/Pel W/O Iv Contrast (12/08/17 ) Comprehensive Metabolic Panel (12/08/17 17:03) Complete Blood Count With Diff (12/08/17 17:03) Lipase (12/08/17 17:03) Prothrombin Time / Inr (Pt) (12/08/17 17:03) Act Partial Throm Time (Ptt) (12/08/17 17:03) Diatrizoate Liq ( Gastroview Liq) (12/08/17 17:23) Morphine Inj (Morphine Inj) (12/08/17 17:45) Ondansetron Inj (Zofran Inj) (12/08/17 17:45) Morphine Inj (Morphine Inj) (12/08/17 18:45) Urinalysis - C+S If Indicated (12/08/17 20:32) Labs Laboratory Tests Test 12/08/17 17:25 White Blood Count 5.5 TH/MM3 Red Blood Count 4.11 MIL/MM3 Hemoglobin 11.7 GM/DL Hematocrit 36.3 % Mean Corpuscular Volume 88.1 FL Mean Corpuscular Hemoglobin 28.4 PG Mean Corpuscular Hemoglobin Concent 32.3 % Red Cell Distribution Width 13.4 % Platelet Count 177 TH/MM3 Mean Platelet Volume 7.6 FL Neutrophils (%) (Auto) 65.2 % Lymphocytes (%) (Auto) 17.9 % Monocytes (%) (Auto) 9.3 % Eosinophils (%) (Auto) 5.3 % Basophils (%) (Auto) 2.3 % Neutrophils # (Auto) 3.6 TH/MM3 Lymphocytes # (Auto) 1.0 TH/MM3 Monocytes # (Auto) 0.5 TH/MM3 Eosinophils # (Auto) 0.3 TH/MM3 Basophils # (Auto) 0.1 TH/MM3 CBC Comment DIFF FINAL Differential Comment Prothrombin Time 13.3 SEC Prothromb Time International Ratio 1.3 RATIO Activated Partial Thromboplast Time 27.2 SEC Blood Urea Nitrogen 28 MG/DL Creatinine 1.30 MG/DL Random Glucose 91 MG/DL Total Protein 7.8 GM/DL Albumin 3.7 GM/DL Calcium Level 9.2 MG/DL Alkaline Phosphatase 228 U/L Aspartate Amino Transf (AST/SGOT) 46 U/L Alanine Aminotransferase (ALT/SGPT) 33 U/L Total Bilirubin 0.7 MG/DL Sodium Level 137 MEQ/L Potassium Level 4.9 MEQ/L Chloride Level 103 MEQ/L Carbon Dioxide Level 28.3 MEQ/L Anion Gap 6 MEQ/L Estimat Glomerular Filtration Rate 57 ML/MIN Lipase 107 U/L MDM Medical Record Reviewed: Yes Supervised Visit with CARMELLA: Yes Interpretation(s) The CT abdomen/pelvis without IV contrast shows bilateral hydroceles and free fluid in the abdomen tracking from the lateral margin of the liver and in the dependent pelvis. The appendix appears upper limits of normal. No hernia is noted. The CBC is normal except for hemoglobin 11.7 and hematocrit of 36.3. The complete metabolic profile shows a BUN of 28 and GFR of 57 with alkaline phosphatase 228, G OT of 46 but is otherwise normal. The lipase is normal. Differential Diagnosis Right inguinal hernia, hydroceles, epididymitis, orchitis Narrative Course The patient is exquisitely tender and I cannot put pressure on the possible hernia. Dr. Corrales already tried using several doses of morphine to reduce the hernia and could not. I discussed the patient with Dr. Park and the patient will be admitted to her for intractable pain. Diagnosis Primary Impression: Incarcerated right inguinal hernia Additional Impression: Intractable abdominal pain Ruled Out: Inguinal hernia Admitting Information Admitting Physician Requests: Admit Condition: Stable Miguel Angel Reza MD Dec 08, 2017 19:32
[2017-12-08 19:35] VITALS: BP 108/58; PULSE 68; RESP 16; O2SAT 98
--- NOTE | 2017-12-08 20:01 | RADRPT ---
EXAM DATE/TIME: 12/08/2017 18:53 [facility] COMPARISON: No previous studies available for comparison. INDICATIONS : Right groin pain and swelling. ORAL CONTRAST: Prescribed oral contrast ingested. RADIATION DOSE: 20.31 CTDIvol (mGy) MEDICAL HISTORY : Chronic obstructive pulmonary disease. Cardiovascular disease Hypertension. SURGICAL HISTORY : Cholecystectomy. Aortic valve replacement. ENCOUNTER: Initial ACUITY: 1 day PAIN SCALE: 8/10 LOCATION: Right inguinal TECHNIQUE: Volumetric scanning of the abdomen and pelvis was performed. Using automated exposure control and ad justment of the mA and/or kV according to patient size, radiation dose was kept as low as reasonably achievable to obtain optimal diagnostic quality images. DICOM format image data is available electro nically for review and comparison. FINDINGS: LOWER LUNGS: Small bilateral pleural effusions. No infiltrates seen in the lower lungs. LIVER: No focal lesion for noncontrast technique. Cholecystectomy. Mild amount of fluid about the lateral margin of the liver. The fluid does track down into the right lower quadrant and in the pelvis. SPLEEN: Normal size without lesion. PANCREAS: Within normal limits. KIDNEYS: Normal in size and shape. There is no mass, stone, or hydronephrosis. ADRENAL GLANDS: Within normal limits. VASCULAR: There is no aortic aneurysm. BOWEL/MESENTERY: No dilated loops of small or large bowel as the oral contrast passes two thirds the way through the s mall bowel. The appendix is identified in the right lower quadrant, lumen contains gas, and the appe ndix measures up to 6 mm. The fluid tracking into the pelvis does pass adjacent to the appendix. ABDOMINAL WALL: Within normal limits. RETROPERITONEUM: There is no lymphadenopathy. BLADDER: No wall thickening or mass. REPRODUCTIVE: Bilateral hydroceles. INGUINAL: There is no lymphadenopathy or hernia. MUSCULOSKELETAL: Bilateral pars defects at L5. CONCLUSION: 1. No calcified renal stones or hydronephrosis. 2. Free fluid in the abdomen tracking from the lateral margin of the liver comments the root of the m esentery, and in the dependent pelvis. 3. The appendix is identified in the right lower quadrant, lumen contains gas, and size is upper limi ts normal. The fluid in the root of the mesentery is partially obscured a portion of the appendix. 4. Bilateral hydroceles. Afshin Whitfield MD on December 08, 2017 at 19:55 Board Certified Radiologist. This report was verified electronically.
[2017-12-08] MEDS ORDERED: ACETAMINOPHEN 325 MG TAB PO PRN (20:45)
[2017-12-08] MEDS ORDERED: LACTULOSE SYRUP 20 GM/30 ML CUP PO PRN (20:45)
[2017-12-08] MEDS ORDERED: ACETAMINOPHEN/HYDROcodone 325 MG/5 MG TAB PO PRN (20:45)
[2017-12-08] MEDS ORDERED: hydrOXYzine HCL 50 MG TAB PO PRN (20:45)
[2017-12-08] MEDS ORDERED: MAGNESIUM HYDROXIDE SUSP 30 ML CUP PO PRN (20:45)
[2017-12-08] MEDS ORDERED: SENNOSIDES 8.6 MG TAB PO PRN (20:45)
[2017-12-08] MEDS ORDERED: BISACODYL 10 MG SUPP RECTAL PRN (20:45)
[2017-12-08 20:50] LABS: BILIRUBIN, URINE NEG (NEG); BLOOD, URINE NEG (NEG); GLUCOSE,URINE NEG (NEG); KETONE, URINE NEG (NEG); NITRITE,URINE NEG (NEG); URINE COLOR YELLOW (YELLW/STRAW); URINE LEUKOCYTE ESTERASE NEG (NEG)
[2017-12-08 20:57] LABS: RBC, URINE 0-2 /hpf (0-3); SQUAMOUS EPITHELIAL CELL URINE 0-5 /hpf (0-5); WBC, URINE 0-2 /hpf (0-5)
[2017-12-08] MEDS ORDERED: ONDANSETRON HCL 4 MG/2 ML VIAL IV ONE (21:15)
[2017-12-08] MEDS ORDERED: HYDROmorphone HCL PF 2 MG/ML VIAL IV PUSH ONE (21:15)
[2017-12-08 21:20] VITALS: BP 115/56; PULSE 67; RESP 18; O2SAT 98
[2017-12-08] MEDS: SODIUM CHLOR 0.9% 1000 ML INJ 1,000 ML IV SCH (21:39)
[2017-12-08] MEDS: SODIUM CHLORIDE 0.9% FLUSH 10 ML FLUSH IV FLUSH SCH (21:41)
[2017-12-08 22:25] VITALS: BP 127/67; PULSE 72; RESP 18; TEMP 97.6
[2017-12-08] MEDS: ATORVASTATIN 20 MG TAB PO SCH (22:32)
[2017-12-08] MEDS: DOCUSATE SODIUM 50 MG/SENNA 8.6 MG TAB PO SCH (22:32)
[2017-12-09] MEDS: ONDANSETRON HCL 4 MG/2 ML VIAL IVP PRN ×3 (00:04→22:30)
[2017-12-09] MEDS ORDERED: HYDROmorphone HCL PF 2 MG/ML VIAL IV ONE (02:30)
[2017-12-09] MEDS: MORPHINE SULFATE 2 MG/ML INJ IV PUSH PRN ×4 (05:28→12:25)
[2017-12-09] MEDS ORDERED: FAMOTIDINE 20 MG/2 ML VIAL IV PUSH ONE (05:30)
[2017-12-09] MEDS: SODIUM CHLOR 0.9% 1000 ML INJ 1,000 ML IV SCH ×2 (05:39→17:07)
[2017-12-09 08:00] VITALS: BP 112/60; PULSE 63; RESP 14; TEMP 96.5; O2SAT 100
[2017-12-09 08:27] LABS: AUTOMATED NEUTROPHIL # 2.6 TH/MM3 (1.8-7.7); BASOPHIL % 0.4 % (0.0-2.0); EOSINOPHIL # 0.2 TH/MM3 (0-0.4); EOSINOPHIL % 5.3 % (0.0-4.0); HEMATOCRIT 33.8 % (39.0-51.0); LYMPH % 25.3 % (9.0-44.0); LYMPHOCYTE # 1.1 TH/MM3 (1.0-4.8); MEAN CELL VOLUME 86.4 FL (80.0-100.0); MEAN CORPUSCULAR HEMOGLOBIN 28.2 PG (27.0-34.0); MEAN CORPUSCULAR HGB CONC 32.6 % (32.0-36.0); MEAN PLATELET VOLUME 7.9 FL (7.0-11.0); MONO % 12.8 % (0.0-8.0); MONOCYTE # 0.6 TH/MM3 (0-0.9); NEUT % 56.2 % (16.0-70.0); PLATELET COUNT 165 TH/MM3 (150-450); RED BLOOD COUNT 3.91 MIL/MM3 (4.50-5.90); RED CELL DISTRIBUTION WIDTH 14.1 % (11.6-17.2); WHITE BLOOD COUNT 4.5 TH/MM3 (4.0-11.0)
[2017-12-09] MEDS: ASPIRIN 325 MG TAB PO SCH (08:36)
[2017-12-09] MEDS: DOCUSATE SODIUM 50 MG/SENNA 8.6 MG TAB PO SCH ×2 (08:36→21:14)
[2017-12-09] MEDS: ATENOLOL 50 MG TAB PO SCH (08:36)
[2017-12-09] MEDS: SODIUM CHLORIDE 0.9% FLUSH 10 ML FLUSH IV FLUSH SCH ×2 (08:37→21:14)
[2017-12-09 08:48] LABS: ALBUMIN 3.6 GM/DL (3.4-5.0); ALKALINE PHOSPHATASE 198 U/L (45-117); ALT (GPT) 27 U/L (12-78); AST (GOT) 39 U/L (15-37); BICARBONATE 28.4 MEQ/L (21.0-32.0); BLOOD UREA NITROGEN 25 MG/DL (7-18); CALCIUM 8.7 MG/DL (8.5-10.1); CHLORIDE 104 MEQ/L (98-107); GLOMERULAR FILTRATION RATE 57 ML/MIN (>89); GLUCOSE,RANDOM 65 MG/DL (74-106); SODIUM (NA) 139 MEQ/L (136-145); TOTAL BILIRUBIN ADULT 0.7 MG/DL (0.2-1.0); TOTAL PROTEIN 7.3 GM/DL (6.4-8.2)
--- NOTE | 2017-12-09 10:33 | HHI.HP ---
[facility] Admission Diagnosis Incarcerated right inguinal hernia with intractable pain Diagnoses: (1) Inguinal hernia (2) Intractable abdominal pain Chief Complaint: Intractable right groin pain Travel History International Travel<30 Days: No Contact w/Intl Traveler <30 Da: No Traveled to Known Affected Are: No History of Present Illness This is a 57-year-old male patient with a known medical history of CAD with history of aortic valve replacement, hyperlipidemia, COPD and hypertension who presented to the ED with intractable right inguinal pain. Patient states that he presented to the ED in November of this year with the right inguinal hernia that was reduced at the time and discharged with pain medications and bowel regimen for constipation. He states that for about a week he was feeling his normal self. Patient states for the last 1-1/2 weeks he has noticed his hernia popping in and out, was able to reduce it himself but during the last few days he has noticed that the pain has become more severe and unbearable. Patient rates the pain an 8 out of 10 on pain scale, is located in the right lower groin area, aching and dull in nature,. He denies any recent illness including fever, chills, headache, cough, shortness of breath, abdominal pain, nausea, vomiting, diarrhea or dysuria. Last bowel movement was today. Patient follows with the [place]. Review of Systems Constitutional: DENIES: Fatigue, Fever, Chills Eyes: DENIES: Blurred vision, Diplopia Respiratory: DENIES: Cough, Sputum production, Shortness of breath Cardiovascular: DENIES: Chest pain Gastrointestinal: COMPLAINS OF: Abdominal pain (Right inguinal hernia area), DENIES: Black stools, Bloody stools, Constipation, Diarrhea, Nausea, Vomiting Neurologic: DENIES: Abnormal gait Psychiatric: DENIES: Anxiety Except as stated in HPI: all other systems reviewed are Neg Past Family Social History Past Medical History Hyperlipidemia CAD with history of aortic valve replacement COPD Hypertension Tobacco abuse Raynauds Past Surgical History Cholecystectomy Aortic valve replacement 2015 Reported Medications Active Reported Hydroxyzine HCl 50 Mg Tab 50 Mg PO BID PRN Aspirin 325 Mg Tab 325 Mg PO DAILY Atorvastatin (Atorvastatin Calcium) 20 Mg Tab 20 Mg PO HS Atenolol 50 Mg Tab 50 Mg PO DAILY Allergies: Coded Allergies: erythromycin base (Verified Allergy, Severe, HIVES, 12/08/17) fenoprofen (Verified Allergy, Severe, HIVES, 12/08/17) Active Ordered Medications Current Medications Medications (Trade) Dose Ordered Sig/[place] Route Start Time Stop Time Status Last Admin Sodium Chloride 1,000 ml @ 100 mls/hr Q10H IV 12/08/17 20:39 12/09/17 05:39 (NS Flush) 2 ml UNSCH PRN IV FLUSH 12/08/17 20:45 (NS Flush) 2 ml BID IV FLUSH 12/08/17 21:00 12/09/17 08:37 (Zofran Inj) 4 mg Q6H PRN IVP 12/08/17 20:45 12/09/17 09:43 (Tylenol) 650 mg Q6H PRN PO 12/08/17 20:45 ([place]use 5-325 Mg) 1 tab Q4H PRN PO 12/08/17 20:45 (Morphine Inj) 2 mg Q3H PRN IV PUSH 12/08/17 20:45 12/09/17 12:25 (Dolly-Colace) 1 tab BID PO 12/08/17 21:00 12/09/17 08:36 (Milk Of Magnesia Liq) 30 ml Q12H PRN PO 12/08/17 20:45 (Senokot) 17.2 mg Q12H PRN PO 12/08/17 20:45 (Dulcolax Supp) 10 mg DAILY PRN RECTAL 12/08/17 20:45 (Lactulose Liq) 30 ml DAILY PRN PO 12/08/17 20:45 (Aspirin) 325 mg DAILY PO 12/09/17 09:00 12/09/17 08:36 (Tenormin) 50 mg DAILY PO 12/09/17 09:00 12/09/17 08:36 (Lipitor) 20 mg HS PO 12/08/17 21:00 12/08/17 22:32 (Atarax) 50 mg BID PRN PO 12/08/17 20:45 (Pepcid Inj) 20 mg Q12H IV 12/09/17 18:00 Family History Maternal medical history significant for breast cancer and diabetes. Paternal medical history significant for unspecified cancer, GERD and hiatal hernia. Physical Exam Vital Signs Vital Signs Date Time Temp Pulse Resp B/P (MAP) Pulse Ox O2 Delivery O2 Flow Rate FiO2 12/09/17 08:00 96.5 63 14 112/60 (77) 100 12/09/17 04:43 12/09/17 00:03 12/08/17 22:25 97.6 72 18 127/67 (87) 12/08/17 21:50 12/08/17 21:20 67 18 115/56 (75) 98 Room Air 12/08/17 19:35 68 16 108/58 (75) 98 Room Air 12/08/17 19:35 68 16 12/08/17 19:35 16 12/08/17 17:34 70 20 134/87 (103) 98 Room Air 12/08/17 16:54 99.0 80 16 148/82 (104) 98 Physical Exam GENERAL: Well-developed, well-nourished patient with apparent right inguinal pain. SKIN: Warm and dry. No rash. HEAD: Normocephalic. Atraumatic. EYES: Pupils equal and round. No scleral icterus. No injection or drainage. ENT: No nasal bleeding or discharge. Mucous membranes pink and moist. NECK: Supple. Trachea midline. CARDIOVASCULAR: Regular rate and rhythm. S1, S2 noted. No murmur appreciated. RESPIRATORY: No accessory muscle use. Clear to auscultation. Breath sounds equal bilaterally. GASTROINTESTINAL: Abdomen soft, non-tender, nondistended. Normoactive bowel sounds x4. Right groin pain to palpation. MUSCULOSKELETAL: No obvious deformities. Extremities without clubbing, cyanosis , or edema. NEUROLOGICAL: Awake and alert. No obvious cranial nerve deficits. Motor grossly within normal limits. 5/5 muscle strength in bilateral upper and lower extremities. Normal speech. PSYCHIATRIC: Appropriate mood and affect; insight and judgment normal. Laboratory Laboratory Tests Test 12/08/17 17:25 12/08/17 19:30 12/09/17 06:49 White Blood Count 5.5 4.5 Red Blood Count 4.11 3.91 Hemoglobin 11.7 11.0 Hematocrit 36.3 33.8 Mean Corpuscular Volume 88.1 86.4 Mean Corpuscular Hemoglobin 28.4 28.2 Mean Corpuscular Hemoglobin Concent 32.3 32.6 Red Cell Distribution Width 13.4 14.1 Platelet Count 177 165 Mean Platelet Volume 7.6 7.9 Neutrophils (%) (Auto) 65.2 56.2 Lymphocytes (%) (Auto) 17.9 25.3 Monocytes (%) (Auto) 9.3 12.8 Eosinophils (%) (Auto) 5.3 5.3 Basophils (%) (Auto) 2.3 0.4 Neutrophils # (Auto) 3.6 2.6 Lymphocytes # (Auto) 1.0 1.1 Monocytes # (Auto) 0.5 0.6 Eosinophils # (Auto) 0.3 0.2 Basophils # (Auto) 0.1 0.0 CBC Comment DIFF FINAL DIFF FINAL Differential Comment Prothrombin Time 13.3 Prothromb Time International Ratio 1.3 Activated Partial Thromboplast Time 27.2 Blood Urea Nitrogen 28 25 Creatinine 1.30 1.30 Random Glucose 91 65 Total Protein 7.8 7.3 Albumin 3.7 3.6 Calcium Level 9.2 8.7 Alkaline Phosphatase 228 198 Aspartate Amino Transf (AST/SGOT) 46 39 Alanine Aminotransferase (ALT/SGPT) 33 27 Total Bilirubin 0.7 0.7 Sodium Level 137 139 Potassium Level 4.9 4.1 Chloride Level 103 104 Carbon Dioxide Level 28.3 28.4 Anion Gap 6 7 Estimat Glomerular Filtration Rate 57 57 Lipase 107 Urine Color YELLOW Urine Turbidity CLEAR Urine pH 6.0 Urine Specific [place] LESS/EQUAL 1.005 Urine Protein NEG Urine Glucose (UA) NEG Urine Ketones NEG Urine Occult Blood NEG Urine Nitrite NEG Urine Bilirubin NEG Urine Urobilinogen 0.2 Urine Leukocyte Esterase NEG Urine RBC 0-2 Urine WBC 0-2 Urine Squamous Epithelial Cells 0-5 Urine Bacteria NONE Microscopic Urinalysis Comment CULT NOT INDICATED Result Diagram: 12/09/17 0649 12/09/17 0649 Imaging Last Impressions Abdomen/Pelvis CT 12/08/17 0000 Signed Impressions: Service Date/Time: Friday, December 08, 2017 18:53 - CONCLUSION: 1. No calcified renal stones or hydronephrosis. 2. Free fluid in the abdomen tracking from the lateral margin of the liver comments the root of the mesentery, and in the dependent pelvis. 3. The appendix is identified in the right lower quadrant, lumen contains gas, and size is upper limits normal. The fluid in the root of the mesentery is partially obscured a portion of the appendix. 4. Bilateral hydroceles. Afshin Whitfield MD Septic Shock Reassessment Septic shock perfusion: reassessment completed Caprini VTE Risk Assessment Caprini VTE Risk Assessment: No/Low Risk (score <= 1) Caprini Risk Assessment Model Point Value = 1 Point Value = 2 Point Value = 3 Point Value = 5 Age 41-60 Minor surgery BMI > 25 kg/m2 Swollen legs Varicose veins or History of unexplained or recurrent spontaneous Oral contraceptives or hormone replacement Sepsis (< 1 month) Serious lung disease, including pneumonia (< 1 month) Abnormal pulmonary function Acute myocardial infarction Congestive heart failure (< 1 month) History of inflammatory bowel disease Medical patient at bed rest Age 61-74 Arthroscopic surgery Major open surgery (> 45 min) Laparoscopic surgery (> 45 min) Malignancy Confined to bed (> 72 hours) Immobilizing plaster cast Central venous access Age >= 75 History of VTE Family history of VTE Factor V Leiden Prothrombin [id number] Lupus anticoagulant Anticardiolipin antibodies Elevated serum homocysteine Heparin-induced thrombocytopenia Other congenital or acquired thrombophilia Stroke (< 1 month) Elective arthroplasty Hip, pelvis, or leg fracture Acute spinal cord injury (< 1 month) Prophylaxis Regimen Total Risk Factor Score Risk Level Prophylaxis Regimen 0-1 Low Early ambulation 2 Moderate Order ONE of the following: *Sequential Compression Device (SCD) *Heparin 5000 units SQ BID 3-4 Higher Order ONE of the following medications: *Heparin 5000 units SQ TID *Enoxaparin/Lovenox 40 mg SQ daily (WT < 150 kg, CrCl > 30 mL/min) *Enoxaparin/Lovenox 30 mg SQ daily (WT < 150 kg, CrCl > 10-29 mL/min) *Enoxaparin/Lovenox 30 mg SQ BID (WT < 150 kg, CrCl > 30 mL/min) AND/OR *Sequential Compression Device (SCD) 5 or more Highest Order ONE of the following medications: *Heparin 5000 units SQ TID (Preferred with Epidurals) *Enoxaparin/Lovenox 40 mg SQ daily (WT < 150 kg, CrCl > 30 mL/min) *Enoxaparin/Lovenox 30 mg SQ daily (WT < 150 kg, CrCl > 10-29 mL/min) *Enoxaparin/Lovenox 30 mg SQ BID (WT < 150 kg, CrCl > 30 mL/min) AND *Sequential Compression Device (SCD) Assessment and Plan Assessment and Plan This is a 57-year-old male patient with a known medical history of CAD with history of aortic valve replacement, hyperlipidemia, COPD and hypertension who presented to the ED with intractable right inguinal pain. Intractable right inguinal pain suspect secondary to right inguinal hernia Abdominal/pelvis CT reviewed showing no calcified renal stones or hydronephrosis. Bilateral hydroceles. General surgery consulted appreciate further recommendations and input. Scrotum ultrasound ordered and pending. Follow. Unable to palpate a hernia. Control pain, IV narcotics available per pain scale. Control nausea, Zofran available as needed. Ensure hydration continue NS at 100 mils an hour. N.p.o. after midnight. For possible surgical intervention. Continue to follow. CBC and BMP reviewed, essentially unremarkable. UA obtained, unremarkable. Hypertension, chronic: Continue home medications. Monitor BP trend. Stable at this time. Hyperlipidemia, chronic: Continue home statin. CAD history with aortic valve replacement: Continue home aspirin. Supportive care. Tobacco abuse: Encouraged cessation. DVT prophylaxis: SCDs Physician Certification 2 Midnight Certification Type: Admission for Inpatient Services Order for Inpatient Services The services are ordered in accordance with Medicare regulations or non- Medicare payer requirements, as applicable. In the case of services not specified as inpatient-only, they are appropriately provided as inpatient services in accordance with the 2-midnight benchmark. Estimated LOS (days): 3 3 days is the estimated time the patient will need to remain in the hospital, assuming treatment plan goals are met and no additional complications. Post-Hospital Plan: Home Problem Qualifiers (1) Inguinal hernia: Qualified Codes: K40.91 - Unilateral inguinal hernia, without obstruction or gangrene, recurrent BurtonBrianamanju FRIAS Dec 09, 2017 10:33
--- NOTE | 2017-12-09 10:39 | PD.CONS ---
HPI Service General surgery Consult Requested By Dr. Reza Reason for Consult Right inguinal pain Primary Care Physician [facility] History of Present Illness 57-year-old male presents with severe right inguinal pain. This has been worsening for 1 week after he was climbing a flight of stairs about 1 week ago. He has actually had issues in the right groin for about 1 month and was in the emergency department a few weeks ago with apparent reduction of a right inguinal hernia. Prior to that time he was lifting a piano. He has had no nausea or vomiting. He actually does not notice a bulge only the pain. CT of the abdomen and pelvis was performed yesterday which did not show a right inguinal hernia. It did show bilateral hydroceles. He has a history of congenital bicuspid aortic valve and has had 3 aortic valve replacements, most recently in 2016. He has also had a laparoscopic cholecystectomy. Review of Systems Constitutional: DENIES: Fever, Chills Eyes: DENIES: Eye inflammation, Eye pain Respiratory: DENIES: Cough, Shortness of breath Cardiovascular: DENIES: Chest pain, Palpitations Gastrointestinal: DENIES: Abdominal pain, Diarrhea, Nausea, Vomiting Integumentary: DENIES: Pruritus, Rash Neurologic: DENIES: Paresthesias, Seizures Past Family Social History Past Medical History COPD Coronary artery disease Congenital bicuspid aortic valve Past Surgical History AVR 3 most recently 2016 Laparoscopic cholecystectomy Reported Medications Reported Meds & Active Scripts Active Reported Hydroxyzine HCl 50 Mg Tab 50 Mg PO BID PRN Aspirin 325 Mg Tab 325 Mg PO DAILY Atorvastatin (Atorvastatin Calcium) 20 Mg Tab 20 Mg PO HS Atenolol 50 Mg Tab 50 Mg PO DAILY Allergies: Coded Allergies: erythromycin base (Verified Allergy, Severe, HIVES, 12/08/17) fenoprofen (Verified Allergy, Severe, HIVES, 12/08/17) Active Ordered Medications Current Medications Medications (Trade) Dose Ordered Sig/[place] Route Start Time Stop Time Status Last Admin Sodium Chloride 1,000 ml @ 100 mls/hr Q10H IV 12/08/17 20:39 12/09/17 05:39 (NS Flush) 2 ml UNSCH PRN IV FLUSH 12/08/17 20:45 (NS Flush) 2 ml BID IV FLUSH 12/08/17 21:00 12/09/17 08:37 (Zofran Inj) 4 mg Q6H PRN IVP 12/08/17 20:45 12/09/17 09:43 (Tylenol) 650 mg Q6H PRN PO 12/08/17 20:45 ([place] 5-325 Mg) 1 tab Q4H PRN PO 12/08/17 20:45 (Morphine Inj) 2 mg Q3H PRN IV PUSH 12/08/17 20:45 12/09/17 09:39 (Dolly-Colace) 1 tab BID PO 12/08/17 21:00 12/09/17 08:36 (Milk Of Magnesia Liq) 30 ml Q12H PRN PO 12/08/17 20:45 (Senokot) 17.2 mg Q12H PRN PO 12/08/17 20:45 (Dulcolax Supp) 10 mg DAILY PRN RECTAL 12/08/17 20:45 (Lactulose Liq) 30 ml DAILY PRN PO 12/08/17 20:45 (Aspirin) 325 mg DAILY PO 12/09/17 09:00 12/09/17 08:36 (Tenormin) 50 mg DAILY PO 12/09/17 09:00 12/09/17 08:36 (Lipitor) 20 mg HS PO 12/08/17 21:00 12/08/17 22:32 (Atarax) 50 mg BID PRN PO 12/08/17 20:45 (Pepcid Inj) 20 mg Q12H IV 12/09/17 18:00 Family History Noncontributory Social History Smokes half pack of cigarettes daily and uses marijuana. Physical Exam Vital Signs Vital Signs Date Time Temp Pulse Resp B/P (MAP) Pulse Ox O2 Delivery O2 Flow Rate FiO2 12/09/17 08:00 96.5 63 14 112/60 (77) 100 12/09/17 04:43 12/09/17 00:03 12/08/17 22:25 97.6 72 18 127/67 (87) 12/08/17 21:50 12/08/17 21:20 67 18 115/56 (75) 98 Room Air 12/08/17 19:35 68 16 108/58 (75) 98 Room Air 12/08/17 19:35 68 16 12/08/17 19:35 16 12/08/17 17:34 70 20 134/87 (103) 98 Room Air 12/08/17 16:54 99.0 80 16 148/82 (104) 98 Physical Exam GENERAL: Awake and alert. No acute distress. Cooperative. HEAD: Normocephalic. Atraumatic. EYES: Pupils equal round and reactive to light bilaterally. No scleral icterus. ENT: Moist oral mucosa. NECK: Trachea midline. CHEST: Lungs clear to auscultation bilaterally with no wheezing or rhonchi. No respiratory distress. CARDIOVASCULAR: Regular rate and rhythm. Well-healed sternotomy scar. ABDOMEN: Soft nontender. : Right testicle is retracted slightly superiorly. Severe tenderness with my exam of the inguinal canal. No palpable bulge or hernia. No erythema. SKIN: Warm, dry, nonjaundiced. Laboratory Laboratory Tests Test 12/08/17 17:25 12/08/17 19:30 12/09/17 06:49 White Blood Count 5.5 4.5 Red Blood Count 4.11 3.91 Hemoglobin 11.7 11.0 Hematocrit 36.3 33.8 Mean Corpuscular Volume 88.1 86.4 Mean Corpuscular Hemoglobin 28.4 28.2 Mean Corpuscular Hemoglobin Concent 32.3 32.6 Red Cell Distribution Width 13.4 14.1 Platelet Count 177 165 Mean Platelet Volume 7.6 7.9 Neutrophils (%) (Auto) 65.2 56.2 Lymphocytes (%) (Auto) 17.9 25.3 Monocytes (%) (Auto) 9.3 12.8 Eosinophils (%) (Auto) 5.3 5.3 Basophils (%) (Auto) 2.3 0.4 Neutrophils # (Auto) 3.6 2.6 Lymphocytes # (Auto) 1.0 1.1 Monocytes # (Auto) 0.5 0.6 Eosinophils # (Auto) 0.3 0.2 Basophils # (Auto) 0.1 0.0 CBC Comment DIFF FINAL DIFF FINAL Differential Comment Prothrombin Time 13.3 Prothromb Time International Ratio 1.3 Activated Partial Thromboplast Time 27.2 Blood Urea Nitrogen 28 25 Creatinine 1.30 1.30 Random Glucose 91 65 Total Protein 7.8 7.3 Albumin 3.7 3.6 Calcium Level 9.2 8.7 Alkaline Phosphatase 228 198 Aspartate Amino Transf (AST/SGOT) 46 39 Alanine Aminotransferase (ALT/SGPT) 33 27 Total Bilirubin 0.7 0.7 Sodium Level 137 139 Potassium Level 4.9 4.1 Chloride Level 103 104 Carbon Dioxide Level 28.3 28.4 Anion Gap 6 7 Estimat Glomerular Filtration Rate 57 57 Lipase 107 Urine Color YELLOW Urine Turbidity CLEAR Urine pH 6.0 Urine Specific [place] LESS/EQUAL 1.005 Urine Protein NEG Urine Glucose (UA) NEG Urine Ketones NEG Urine Occult Blood NEG Urine Nitrite NEG Urine Bilirubin NEG Urine Urobilinogen 0.2 Urine Leukocyte Esterase NEG Urine RBC 0-2 Urine WBC 0-2 Urine Squamous Epithelial Cells 0-5 Urine Bacteria NONE Microscopic Urinalysis Comment CULT NOT INDICATED Result Diagram: 12/09/17 0649 12/09/17 0649 Imaging Last Impressions Abdomen/Pelvis CT 12/08/17 0000 Signed Impressions: Service Date/Time: Friday, December 08, 2017 18:53 - CONCLUSION: 1. No calcified renal stones or hydronephrosis. 2. Free fluid in the abdomen tracking from the lateral margin of the liver comments the root of the mesentery, and in the dependent pelvis. 3. The appendix is identified in the right lower quadrant, lumen contains gas, and size is upper limits normal. The fluid in the root of the mesentery is partially obscured a portion of the appendix. 4. Bilateral hydroceles. Afshin Whitfield MD Assessment and Plan Assessment and Plan 57-year-old male with severe right inguinal pain. Exam is limited by pain but I cannot palpate a hernia. In addition CT abdomen and pelvis did not reveal hernia. He may have a small hernia with compression of the nerve or this may be another etiology. I will obtain an ultrasound of the scrotum and the right inguinal area. Steve Clark MD Dec 09, 2017 10:39
[2017-12-09 12:00] VITALS: BP 106/62; PULSE 62; RESP 14; TEMP 96.6; O2SAT 98
--- NOTE | 2017-12-09 12:33 | RADRPT ---
EXAM DATE/TIME: 12/09/2017 11:33 [place] COMPARISON: US TESTICLE W/DOPPLER, November 21, 2017, 12:00. INDICATIONS : Pain in right testicle and inguinal canal. MEDICAL HISTORY : Myocardial infarction. Hypercholesterolemia. Migriane. Coronary artery disease. Hypertension. COPD. A sthma. SURGICAL HISTORY : Cholecystectomy. Aortic valve repair. Orthopedic surgery. ENCOUNTER: Initial ACUITY: 3 weeks PAIN SCORE: 5/10 LOCATION: Bilateral scrotum. MEASUREMENTS: RIGHT TESTICLE: 3.2 x 2.7 x 2.3 cm LEFT TESTICLE: 3.4 x 2.4 x 2.6 cm FINDINGS: RIGHT TESTICLE: 5 mm cyst is seen within the midpole of the right testicle. Testicle is otherwise within normal limit s. Normal color Doppler flow. Small right hydrocele. Varicocele noted on the right. No bowel identifi ed in the scrotum. LEFT TESTICLE: Testicle is homogeneous and within normal limits. Normal color Doppler flow in the testicle. Small hy drocele. Moderate-sized varicocele on the right. No bowel identified in the scrotum. SCROTUM: Within normal limits. CONCLUSION: 1. Testicles within normal limits. 2. Bilateral varicoceles. 3. Small bilateral hydroceles. 4. No gross hernia identified the scrotum. Waldemar Dejesus MD on December 09, 2017 at 12:28 Board Certified Radiologist. This report was verified electronically.
[2017-12-09 16:00] VITALS: BP 117/65; PULSE 67; RESP 14; TEMP 96.7; O2SAT 96
[2017-12-09] MEDS: FAMOTIDINE 20 MG/2 ML VIAL IV SCH (17:02)
[2017-12-09] MEDS: HYDROmorphone HCL PF 2 MG/ML VIAL IV PUSH PRN ×2 (17:06→21:15)
[2017-12-09] MEDS: cefTRIAXone INJ 1,000 MG in SODIUM CHLORIDE 0.9% INJ 100 ML IV SCH (17:09)
[2017-12-09] MEDS ORDERED: KETOROLAC TROMETHAMINE 60 MG/2 ML (IM) VIAL IM PRN (18:00)
[2017-12-09] MEDS: DOXYCYCLINE INJ 200 MG in SODIUM CHLOR 0.9% 250 ML INJ 250 ML IV SCH (18:17)
[2017-12-09 21:08] VITALS: BP 106/69; PULSE 65; RESP 18; TEMP 97.9; O2SAT 97
[2017-12-09] MEDS: ATORVASTATIN 20 MG TAB PO SCH (21:14)
--- NOTE | 2017-12-09 22:13 | PD.CONS ---
HPI Service Urology Consult Requested By Reason for Consult Groin pain Primary Care Physician [facility] Diagnosis: (1) Inguinal hernia ICD Code: K40.90 - Unilateral inguinal hernia, without obstruction or gangrene , not specified as recurrent (2) Intractable abdominal pain ICD Code: R10.9 - Unspecified abdominal pain History of Present Illness 57yo male with history of CAD, Aortic valve repair, COPD, HTN, and hyperlipidemia now with right groin pain seen in consultation. Patient reports he recently did heavy lifting while moving furniture at which point he began to feel a slowly progressive pain in the right groin that radiated to the right testicle. He reported to the ED with persistent pain, however imaging studies did not identify an obvious cause for his pain. Patient reports that he had a right inguinal hernia reduced in the ED previously, however his pain has not improved. No fevers. No N/V. No LUTS. He does report constipation and straining. CT and Scrotal U/S do not reveal any obvious etiology for his pain. Review of Systems ROS Limitations: Clinical Condition Constitutional: DENIES: Fever Eyes: DENIES: Blurred vision Ears, nose, mouth, throat: DENIES: Tinnitus, Hearing loss Respiratory: DENIES: Apneas Cardiovascular: DENIES: Chest pain Gastrointestinal: COMPLAINS OF: Abdominal pain, DENIES: Nausea Genitourinary: DENIES: Urgency, Hematuria, Dysuria Musculoskeletal: DENIES: Back pain Neurologic: DENIES: Abnormal gait, Headache Psychiatric: DENIES: Anxiety Except as stated in HPI: all other systems reviewed are Neg Past Family Social History Past Medical History Hyperlipidemia CAD with history of aortic valve replacement COPD Hypertension Tobacco abuse Raynauds Past Surgical History Cholecystectomy Aortic valve replacement 2015 Reported Medications Reported Meds & Active Scripts Active Reported Hydroxyzine HCl 50 Mg Tab 50 Mg PO BID PRN Aspirin 325 Mg Tab 325 Mg PO DAILY Atorvastatin (Atorvastatin Calcium) 20 Mg Tab 20 Mg PO HS Atenolol 50 Mg Tab 50 Mg PO DAILY Allergies: Coded Allergies: erythromycin base (Verified Allergy, Severe, HIVES, 12/08/17) fenoprofen (Verified Allergy, Severe, HIVES, 12/08/17) Active Ordered Medications Current Medications Medications (Trade) Dose Ordered Sig/[place] Route Start Time Stop Time Status Last Admin Sodium Chloride 1,000 ml @ 100 mls/hr Q10H IV 12/08/17 20:39 12/09/17 17:07 (NS Flush) 2 ml UNSCH PRN IV FLUSH 12/08/17 20:45 (NS Flush) 2 ml BID IV FLUSH 12/08/17 21:00 12/09/17 21:14 (Zofran Inj) 4 mg Q6H PRN IVP 12/08/17 20:45 12/09/17 09:43 (Tylenol) 650 mg Q6H PRN PO 12/08/17 20:45 ([place] 5-325 Mg) 1 tab Q4H PRN PO 12/08/17 20:45 (Dolly-Colace) 1 tab BID PO 12/08/17 21:00 12/09/17 21:14 (Milk Of Magnesia Liq) 30 ml Q12H PRN PO 12/08/17 20:45 (Senokot) 17.2 mg Q12H PRN PO 12/08/17 20:45 (Dulcolax Supp) 10 mg DAILY PRN RECTAL 12/08/17 20:45 (Lactulose Liq) 30 ml DAILY PRN PO 12/08/17 20:45 (Aspirin) 325 mg DAILY PO 12/09/17 09:00 12/09/17 08:36 (Tenormin) 50 mg DAILY PO 12/09/17 09:00 12/09/17 08:36 (Lipitor) 20 mg HS PO 12/08/17 21:00 12/09/17 21:14 (Atarax) 50 mg BID PRN PO 12/08/17 20:45 (Pepcid Inj) 20 mg Q12H IV 12/09/17 18:00 12/09/17 17:02 Ceftriaxone Sodium 1000 mg/ Sodium Chloride 100 ml @ 200 mls/hr Q24H IV 12/09/17 17:00 12/09/17 17:09 Doxycycline Hyclate 200 mg/ Sodium Chloride 250 ml @ 166.667 mls/hr Q12H IV 12/09/17 18:00 12/09/17 18:17 (Dilaudid Pf Inj) 1 mg Q4H PRN IV PUSH 12/09/17 17:00 12/09/17 21:15 (Toradol Inj) 30 mg Q6H PRN IM 12/09/17 18:00 Family History Maternal medical history significant for breast cancer and diabetes. Paternal medical history significant for unspecified cancer, GERD and hiatal hernia. Social History tobacco use Physical Exam Vital Signs Date Time Temp Pulse Resp B/P (MAP) Pulse Ox O2 Delivery O2 Flow Rate FiO2 12/09/17 21:08 97.9 65 18 106/69 (81) 97 12/09/17 16:00 96.7 67 14 117/65 (82) 96 12/09/17 12:00 96.6 62 14 106/62 (77) 98 12/09/17 08:00 96.5 63 14 112/60 (77) 100 12/09/17 04:43 12/09/17 00:03 12/08/17 22:25 97.6 72 18 127/67 (87) Physical Exam GENERAL: This is a well-nourished, well-developed patient, in no apparent distress. SKIN: No rashes, ecchymoses or lesions. Cool and dry. HEAD: Atraumatic. Normocephalic. EYES: Pupils equal round and reactive. Extraocular motions intact. ENT: Nose without bleeding, purulent drainage. Airway patent. NECK: Trachea midline. No JVD or lymphadenopathy. CARDIOVASCULAR: Normal pulse RESPIRATORY: nonlabored GASTROINTESTINAL: Abdomen soft, non-tender, nondistended. GENITOURINARY: Normal left testis. Right testicle significantly tender to palpation, edemetous scrotum noted, right tenderness at the right inguinal canal. Uncircumcised phallus, normal meatus. MUSCULOSKELETAL: Extremities without clubbing, cyanosis, or edema. NEUROLOGICAL: Awake and alert. Motor and sensory grossly within normal limits. Normal speech. Lab results reviewed: Yes Laboratory Tests Test 12/09/17 06:49 White Blood Count 4.5 Red Blood Count 3.91 Hemoglobin 11.0 Hematocrit 33.8 Mean Corpuscular Volume 86.4 Mean Corpuscular Hemoglobin 28.2 Mean Corpuscular Hemoglobin Concent 32.6 Red Cell Distribution Width 14.1 Platelet Count 165 Mean Platelet Volume 7.9 Neutrophils (%) (Auto) 56.2 Lymphocytes (%) (Auto) 25.3 Monocytes (%) (Auto) 12.8 Eosinophils (%) (Auto) 5.3 Basophils (%) (Auto) 0.4 Neutrophils # (Auto) 2.6 Lymphocytes # (Auto) 1.1 Monocytes # (Auto) 0.6 Eosinophils # (Auto) 0.2 Basophils # (Auto) 0.0 CBC Comment DIFF FINAL Differential Comment Blood Urea Nitrogen 25 Creatinine 1.30 Random Glucose 65 Total Protein 7.3 Albumin 3.6 Calcium Level 8.7 Alkaline Phosphatase 198 Aspartate Amino Transf (AST/SGOT) 39 Alanine Aminotransferase (ALT/SGPT) 27 Total Bilirubin 0.7 Sodium Level 139 Potassium Level 4.1 Chloride Level 104 Carbon Dioxide Level 28.4 Anion Gap 7 Estimat Glomerular Filtration Rate 57 Result Diagram: 12/09/17 0649 12/09/1749 Personally reviewed images: Yes Imaging Last Impressions Scrotum Ultrasound 12/09/17 0000 Signed Impressions: Service Date/Time: Saturday, December 09, 2017 11:33 - CONCLUSION: 1. Testicles within normal limits. 2. Bilateral varicoceles. 3. Small bilateral hydroceles. 4. No gross hernia identified the scrotum. Waldemar Dejesus MD Abdomen/Pelvis CT 12/08/17 0000 Signed Impressions: Service Date/Time: Friday, December 08, 2017 18:53 - CONCLUSION: 1. No calcified renal stones or hydronephrosis. 2. Free fluid in the abdomen tracking from the lateral margin of the liver comments the root of the mesentery, and in the dependent pelvis. 3. The appendix is identified in the right lower quadrant, lumen contains gas, and size is upper limits normal. The fluid in the root of the mesentery is partially obscured a portion of the appendix. 4. Bilateral hydroceles. Afshin Whitfield MD Assessment and Plan Problem List: (1) Inguinal hernia ICD Code: K40.90 - Unilateral inguinal hernia, without obstruction or gangrene , not specified as recurrent Status: Acute (2) Intractable abdominal pain ICD Code: R10.9 - Unspecified abdominal pain Status: Acute Assessment and Plan -CT ad Scrotal U/S personally reviewed. No obvious cause for current pain. -On exam, the right testis is significantly more tender than the left, with pain extending up the right spermatic cord and inguinal canal. Findings concerning for possible epididymalorchitis -Recommend continue IV abx. Currently on Doxycycline -Rule out any other etiology per medicine team -If no other source of pain/infection, recommend to maintain doxycycline PO x 1 month for suspected epididymal orchitis with NSAIDs and scrotal support with follow-up in Urology clinic in a few weeks -Please call with questions Problem Qualifiers (1) Inguinal hernia: Qualified Codes: K40.91 - Unilateral inguinal hernia, without obstruction or gangrene, recurrent Domo Wharton MD Dec 09, 2017 22:13
[2017-12-09] MEDS: SODIUM CHLORIDE 0.9% FLUSH 10 ML FLUSH IV FLUSH PRN (22:30)
[2017-12-10 00:12] VITALS: BP 120/58; PULSE 69; RESP 18; TEMP 97.9; O2SAT 98
[2017-12-10] MEDS: SODIUM CHLOR 0.9% 1000 ML INJ 1,000 ML IV SCH (02:39)
[2017-12-10] MEDS: HYDROmorphone HCL PF 2 MG/ML VIAL IV PUSH PRN ×4 (03:07→21:27)
[2017-12-10] MEDS: DOXYCYCLINE INJ 200 MG in SODIUM CHLOR 0.9% 250 ML INJ 250 ML IV SCH ×2 (05:37→17:43)
[2017-12-10] MEDS: FAMOTIDINE 20 MG/2 ML VIAL IV SCH ×2 (05:38→17:39)
[2017-12-10 08:00] VITALS: BP 130/86; PULSE 70; RESP 20; TEMP 97.2; O2SAT 100
[2017-12-10] MEDS: ATENOLOL 50 MG TAB PO SCH (08:08)
[2017-12-10] MEDS: ASPIRIN 325 MG TAB PO SCH (08:08)
[2017-12-10] MEDS: SODIUM CHLORIDE 0.9% FLUSH 10 ML FLUSH IV FLUSH SCH ×2 (08:08→21:27)
[2017-12-10] MEDS: DOCUSATE SODIUM 50 MG/SENNA 8.6 MG TAB PO SCH ×2 (08:08→21:26)
[2017-12-10 10:00] VITALS: O2SAT 98
[2017-12-10] MEDS: NICOTINE 14 MG/24 HR PATCH T-DERMAL SCH (11:00)
[2017-12-10] MEDS: FUROSEMIDE 20 MG/2 ML VIAL IV PUSH SCH (11:49)
--- NOTE | 2017-12-10 11:52 | HHI.PR ---
Subjective Subjective Notes C/o severe pain right groin and swelling of scrotum. Objective Vitals/I&O Vital Signs Date Time Temp Pulse Resp B/P (MAP) Pulse Ox O2 Delivery O2 Flow Rate FiO2 12/10/17 08:00 97.2 70 20 130/86 (101) 100 12/08/17 21:20 Room Air Radiology Last Impressions Abdomen/Pelvis CT 12/08/17 0000 Signed Impressions: Service Date/Time: Friday, December 08, 2017 18:53 - CONCLUSION: 1. No calcified renal stones or hydronephrosis. 2. Free fluid in the abdomen tracking from the lateral margin of the liver comments the root of the mesentery, and in the dependent pelvis. 3. The appendix is identified in the right lower quadrant, lumen contains gas, and size is upper limits normal. The fluid in the root of the mesentery is partially obscured a portion of the appendix. 4. Bilateral hydroceles. Afshin Whitfield MD Narrative Exam Scrotal swelling, pain right hemiscrotum and inguinal area- I'm unable to exam inguinal canal well due to pain A/P Assessment and Plan 57 yo with right inguinal pain. No evidence of right inguinal hernia. I will sign off. He can f/u in 2-3 weeks for better exam if pain is improved. Steve Clark MD Dec 10, 2017 11:52
[2017-12-10 12:00] VITALS: BP 102/71; PULSE 70; RESP 18; TEMP 95.5; O2SAT 99
--- NOTE | 2017-12-10 12:46 | HHI.PR ---
Subjective Remarks Follow-up severe intractable inguinal pain. Patient seen and examined, standing up by window, pain is more controlled. Patient states he is feeling much better today. Patient has been seen by general surgery and urology, appreciate input recommendations. No surgery at this time. Pain control. Continue IV antibiotics. Afebrile. Vital signs are stable. Attempt to wean off IV narcotics. Objective Vitals Vital Signs Date Time Temp Pulse Resp B/P (MAP) Pulse Ox O2 Delivery O2 Flow Rate FiO2 12/10/17 12:00 95.5 70 18 102/71 (81) 99 12/10/17 08:00 97.2 70 20 130/86 (101) 100 12/10/17 05:08 12/10/17 00:12 97.9 69 18 120/58 (78) 98 12/09/17 22:15 18 12/09/17 21:08 97.9 65 18 106/69 (81) 97 12/09/17 16:00 96.7 67 14 117/65 (82) 96 I/O 12/09/17 12/09/17 12/09/17 12/10/17 12/10/17 12/10/17 07:00 15:00 23:00 07:00 15:00 23:00 Intake Total 704 ml 236 ml 340 ml 350 ml Output Total 775 ml Balance -71 ml 236 ml 340 ml 350 ml Intake Oral 236 ml 240 ml IV Total 704 ml 100 ml 350 ml Output Urine Total 775 ml # Voids 5 6 1 # Bowel Movements 2 1 1 Result Diagram: 12/09/17 0649 12/09/17 0649 Imaging Last Impressions Scrotum Ultrasound 12/09/17 0000 Signed Impressions: Service Date/Time: Saturday, December 09, 2017 11:33 - CONCLUSION: 1. Testicles within normal limits. 2. Bilateral varicoceles. 3. Small bilateral hydroceles. 4. No gross hernia identified the scrotum. Waldemar Dejesus MD Abdomen/Pelvis CT 12/08/17 0000 Signed Impressions: Service Date/Time: Friday, December 08, 2017 18:53 - CONCLUSION: 1. No calcified renal stones or hydronephrosis. 2. Free fluid in the abdomen tracking from the lateral margin of the liver comments the root of the mesentery, and in the dependent pelvis. 3. The appendix is identified in the right lower quadrant, lumen contains gas, and size is upper limits normal. The fluid in the root of the mesentery is partially obscured a portion of the appendix. 4. Bilateral hydroceles. Afshin Whitfield MD Objective Remarks GENERAL: Well-developed, well-nourished patient in NAD. SKIN: Warm and dry. No rash. HEAD: Normocephalic. Atraumatic. EYES: Pupils equal and round. No scleral icterus. No injection or drainage. ENT: No nasal bleeding or discharge. Mucous membranes pink and moist. NECK: Supple. Trachea midline. CARDIOVASCULAR: Regular rate and rhythm. S1, S2 noted. No murmur appreciated. RESPIRATORY: No accessory muscle use. Clear to auscultation. Breath sounds equal bilaterally. GASTROINTESTINAL: Abdomen soft, non-tender, nondistended. Normoactive bowel sounds x4. : Scrotum swelling. Pain to palpation in right testicle. MUSCULOSKELETAL: No obvious deformities. Extremities without clubbing, cyanosis , or edema. NEUROLOGICAL: Awake and alert. No obvious cranial nerve deficits. Motor grossly within normal limits. 5/5 muscle strength in bilateral upper and lower extremities. Normal speech. PSYCHIATRIC: Appropriate mood and affect; insight and judgment normal. A/P Problem List: (1) Inguinal hernia ICD Code: K40.90 - Unilateral inguinal hernia, without obstruction or gangrene , not specified as recurrent Status: Acute (2) Intractable abdominal pain ICD Code: R10.9 - Unspecified abdominal pain Status: Acute Assessment and Plan This is a 57-year-old male patient with a known medical history of CAD with history of aortic valve replacement, hyperlipidemia, COPD and hypertension who presented to the ED with intractable right inguinal pain. Intractable right inguinal pain suspect secondary to right inguinal hernia Abdominal/pelvis CT reviewed showing no calcified renal stones or hydronephrosis. Bilateral hydroceles. General surgery consulted appreciate further recommendations and input. Scrotum ultrasound essentially unremarkable, there is presence of bilateral hydrocele and variocele. Unable to palpate a hernia. No surgical intervention at this time. Follow-up after discharge. Control pain, IV narcotics available per pain scale. Attempt to wean. Stress importance of anti-inflammatory, Toradol available. Control nausea, Zofran available as needed. Ensure hydration continue NS at 100 mils an hour. CBC and BMP reviewed, essentially unremarkable. UA obtained, unremarkable. Consult placed to urology, appreciate input recommendations. Concerning for possible for epididymoorchitis. Continue IV fluids and IV antibiotics for now. Pain control. Hypertension, chronic: Continue home medications. Monitor BP trend. Stable at this time. Hyperlipidemia, chronic: Continue home statin. CAD history with aortic valve replacement: Continue home aspirin. Supportive care. Tobacco abuse: Encouraged cessation. DVT prophylaxis: SCDs Problem Qualifiers (1) Inguinal hernia: Qualified Codes: K40.91 - Unilateral inguinal hernia, without obstruction or gangrene, recurrent Briana Manrique Dec 10, 2017 12:46
[2017-12-10] MEDS: NYSTATIN 100,000 U/GM PWD 15 GM BTL TOPICAL SCH ×2 (14:25→21:26)
[2017-12-10 16:00] VITALS: BP 104/59; PULSE 78; RESP 18; TEMP 97; O2SAT 97
[2017-12-10] MEDS: cefTRIAXone INJ 1,000 MG in SODIUM CHLORIDE 0.9% INJ 100 ML IV SCH (16:07)
[2017-12-10 20:15] VITALS: BP 145/82; PULSE 68; RESP 16; TEMP 98; O2SAT 99
--- NOTE | 2017-12-10 21:17 | HHI.PR ---
Subjective Patient symptoms today Patient overall improved today, pain controlled Objective Vital Signs Vital Signs Date Time Temp Pulse Resp B/P (MAP) Pulse Ox O2 Delivery O2 Flow Rate FiO2 12/10/17 20:15 98.0 68 16 145/82 (103) 99 12/10/17 16:00 97.0 78 18 104/59 (74) 97 12/10/17 12:00 95.5 70 18 102/71 (81) 99 12/10/17 10:00 98 21 12/10/17 08:00 97.2 70 20 130/86 (101) 100 12/10/17 05:08 12/10/17 00:12 97.9 69 18 120/58 (78) 98 12/09/17 22:15 18 Result Diagram: 12/09/1749 12/09/1749 Objective Remarks NAD, AAOx3 Resp NL No edema Medications and IVs Current Medications Medications (Trade) Dose Ordered Sig/[place] Route Start Time Stop Time Status Last Admin (NS Flush) 2 ml UNSCH PRN IV FLUSH 12/08/17 20:45 12/09/17 22:30 (NS Flush) 2 ml BID IV FLUSH 12/08/17 21:00 12/10/17 08:08 (Zofran Inj) 4 mg Q6H PRN IVP 12/08/17 20:45 12/09/17 22:30 (Tylenol) 650 mg Q6H PRN PO 12/08/17 20:45 ([place] 5-325 Mg) 1 tab Q4H PRN PO 12/08/17 20:45 (Dolly-Colace) 1 tab BID PO 12/08/17 21:00 12/10/17 08:08 (Milk Of Magnesia Liq) 30 ml Q12H PRN PO 12/08/17 20:45 (Senokot) 17.2 mg Q12H PRN PO 12/08/17 20:45 (Dulcolax Supp) 10 mg DAILY PRN RECTAL 12/08/17 20:45 (Lactulose Liq) 30 ml DAILY PRN PO 12/08/17 20:45 (Aspirin) 325 mg DAILY PO 12/09/17 09:00 12/10/17 08:08 (Tenormin) 50 mg DAILY PO 12/09/17 09:00 12/10/17 08:08 (Lipitor) 20 mg HS PO 12/08/17 21:00 12/09/17 21:14 (Atarax) 50 mg BID PRN PO 12/08/17 20:45 (Pepcid Inj) 20 mg Q12H IV 12/09/17 18:00 12/10/17 17:39 Ceftriaxone Sodium 1000 mg/ Sodium Chloride 100 ml @ 200 mls/hr Q24H IV 12/09/17 17:00 12/10/17 16:07 Doxycycline Hyclate 200 mg/ Sodium Chloride 250 ml @ 166.667 mls/hr Q12H IV 12/09/17 18:00 12/10/17 17:43 (Toradol Inj) 30 mg Q6H PRN IM 12/09/17 18:00 (Dilaudid Pf Inj) 0.5 mg Q6H PRN IV PUSH 12/10/17 10:30 12/10/17 14:26 (Lasix Inj) 20 mg DAILY IV PUSH 12/10/17 11:00 12/10/17 11:49 (Habitrol 14 Mg Patch.24 Hr) 1 patch DAILY T-DERMAL 12/10/17 11:00 Miscellaneous Information 1 DAILY T-DERMAL 12/11/17 09:00 (Mycostatin Powder) 1 applic Q8HR TOPICAL 12/10/17 14:00 12/10/17 14:25 Assessment and Plan Problem List: (1) Inguinal hernia ICD Code: K40.90 - Unilateral inguinal hernia, without obstruction or gangrene , not specified as recurrent Status: Acute (2) Intractable abdominal pain ICD Code: R10.9 - Unspecified abdominal pain Status: Acute Assessment and Plan -Doing well -If no other source of pain/infection, clear for discharge from urology standpoint, recommend to maintain doxycycline PO x 1 month for suspected epididymal orchitis with NSAIDs and scrotal support with follow-up in Urology clinic in a few weeks -Please call with questions Problem Qualifiers (1) Inguinal hernia: Qualified Codes: K40.91 - Unilateral inguinal hernia, without obstruction or gangrene, recurrent Domo Wharton MD Dec 10, 2017 21:17
[2017-12-10] MEDS: ATORVASTATIN 20 MG TAB PO SCH (21:26)
[2017-12-11 00:05] VITALS: BP 137/90; PULSE 70; RESP 16; TEMP 98.2; O2SAT 99
[2017-12-11] MEDS: SODIUM CHLORIDE 0.9% FLUSH 10 ML FLUSH IV FLUSH PRN (04:01)
[2017-12-11] MEDS: HYDROmorphone HCL PF 2 MG/ML VIAL IV PUSH PRN (04:01)
[2017-12-11] MEDS: DOXYCYCLINE INJ 200 MG in SODIUM CHLOR 0.9% 250 ML INJ 250 ML IV SCH (05:23)
[2017-12-11] MEDS: FAMOTIDINE 20 MG/2 ML VIAL IV SCH (05:23)
[2017-12-11] MEDS: NYSTATIN 100,000 U/GM PWD 15 GM BTL TOPICAL SCH ×2 (05:25→14:00)
[2017-12-11 08:00] VITALS: BP 137/87; PULSE 62; RESP 20; TEMP 96; O2SAT 99
[2017-12-11] MEDS: SODIUM CHLORIDE 0.9% FLUSH 10 ML FLUSH IV FLUSH SCH (08:04)
[2017-12-11] MEDS: ONDANSETRON HCL 4 MG/2 ML VIAL IVP PRN (08:05)
[2017-12-11] MEDS: ATENOLOL 50 MG TAB PO SCH (08:08)
[2017-12-11] MEDS: DOCUSATE SODIUM 50 MG/SENNA 8.6 MG TAB PO SCH (08:08)
[2017-12-11] MEDS: NICOTINE 14 MG/24 HR PATCH T-DERMAL SCH (08:09)
[2017-12-11] MEDS: ASPIRIN 325 MG TAB PO SCH (08:09)
[2017-12-11] MEDS: FUROSEMIDE 20 MG/2 ML VIAL IV PUSH SCH (08:10)
[2017-12-11] MEDS ORDERED: REMOVE OLD PATCH T-DERMAL SCH (09:00)
--- NOTE | 2017-12-11 12:37 | HHI.DCPOC ---
Discharge Care Plan Diagnosis: (1) Incarcerated right inguinal hernia (2) Inguinal hernia Goals to Promote Your Health * To prevent worsening of your condition and complications * To maintain your health at the optimal level Directions to Meet Your Goals Take your medications as prescribed Follow your dietary instruction Follow activity as directed Keep your appointments as scheduled Take your immunizations and boosters as scheduled If your symptoms worsen call your PCP, if no PCP go to Urgent Care Center or Emergency Room Smoking is Dangerous to Your Health. Avoid second hand smoke Call the 24-hour hour crisis hotline for domestic abuse at Briana Manrique Dec 11, 2017 12:37
--- NOTE | 2017-12-11 12:37 | HHI.DS ---
Discharge Summary Admission Date Dec 08, 2017 at 20:45 Discharge Date: Dec 11, 2017 Admitting Diagnosis Incarcerated right inguinal hernia with intractable pain (1) Inguinal hernia ICD Code: K40.90 - Unilateral inguinal hernia, without obstruction or gangrene , not specified as recurrent Status: Acute (2) Intractable abdominal pain ICD Code: R10.9 - Unspecified abdominal pain Status: Acute Procedures See below. Brief History - From Admission This is a 57-year-old male patient with a known medical history of CAD with history of aortic valve replacement, hyperlipidemia, COPD and hypertension who presented to the ED with intractable right inguinal pain. Patient states that he presented to the ED in November of this year with the right inguinal hernia that was reduced at the time and discharged with pain medications and bowel regimen for constipation. He states that for about a week he was feeling his normal self. Patient states for the last 1-1/2 weeks he has noticed his hernia popping in and out, was able to reduce it himself but during the last few days he has noticed that the pain has become more severe and unbearable. Patient rates the pain an 8 out of 10 on pain scale, is located in the right lower groin area, aching and dull in nature,. He denies any recent illness including fever, chills, headache, cough, shortness of breath, abdominal pain, nausea, vomiting, diarrhea or dysuria. Last bowel movement was today. [facility] CBC/BMP: 12/09/17 0649 12/09/17 0649 Significant Findings Laboratory Tests Test 12/08/17 17:25 12/08/17 19:30 12/09/17 06:49 Red Blood Count 4.11 MIL/MM3 (4.50-5.90) 3.91 MIL/MM3 (4.50-5.90) Hemoglobin 11.7 GM/DL (13.0-17.0) 11.0 GM/DL (13.0-17.0) Hematocrit 36.3 % (39.0-51.0) 33.8 % (39.0-51.0) Monocytes (%) (Auto) 9.3 % (0.0-8.0) 12.8 % (0.0-8.0) Eosinophils (%) (Auto) 5.3 % (0.0-4.0) 5.3 % (0.0-4.0) Basophils (%) (Auto) 2.3 % (0.0-2.0) Prothrombin Time 13.3 SEC (9.8-11.6) Blood Urea Nitrogen 28 MG/DL (7-18) 25 MG/DL (7-18) Alkaline Phosphatase 228 U/L (45-117) 198 U/L (45-117) Aspartate Amino Transf (AST/SGOT) 46 U/L (15-37) 39 U/L (15-37) Estimat Glomerular Filtration Rate 57 ML/MIN (>89) 57 ML/MIN (>89) Random Glucose 65 MG/DL (74-106) Imaging Last Impressions Scrotum Ultrasound 12/09/17 0000 Signed Impressions: Service Date/Time: Saturday, December 09, 2017 11:33 - CONCLUSION: 1. Testicles within normal limits. 2. Bilateral varicoceles. 3. Small bilateral hydroceles. 4. No gross hernia identified the scrotum. Waldemar Dejesus MD Abdomen/Pelvis CT 12/08/17 0000 Signed Impressions: Service Date/Time: Friday, December 08, 2017 18:53 - CONCLUSION: 1. No calcified renal stones or hydronephrosis. 2. Free fluid in the abdomen tracking from the lateral margin of the liver comments the root of the mesentery, and in the dependent pelvis. 3. The appendix is identified in the right lower quadrant, lumen contains gas, and size is upper limits normal. The fluid in the root of the mesentery is partially obscured a portion of the appendix. 4. Bilateral hydroceles. Afshin Whitfield MD PE at Discharge GENERAL: Well-developed, well-nourished patient in NAD. SKIN: Warm and dry. No rash. HEAD: Normocephalic. Atraumatic. EYES: Pupils equal and round. No scleral icterus. No injection or drainage. ENT: No nasal bleeding or discharge. Mucous membranes pink and moist. NECK: Supple. Trachea midline. CARDIOVASCULAR: Regular rate and rhythm. S1, S2 noted. No murmur appreciated. RESPIRATORY: No accessory muscle use. Clear to auscultation. Breath sounds equal bilaterally. GASTROINTESTINAL: Abdomen soft, non-tender, nondistended. Normoactive bowel sounds x4. : Scrotum swelling. Pain to palpation in right testicle. MUSCULOSKELETAL: No obvious deformities. Extremities without clubbing, cyanosis , or edema. NEUROLOGICAL: Awake and alert. No obvious cranial nerve deficits. Motor grossly within normal limits. 5/5 muscle strength in bilateral upper and lower extremities. Normal speech. PSYCHIATRIC: Appropriate mood and affect; insight and judgment normal. Pt update on day of discharge Follow-up severe intractable right groin pain. Patient seen and examined, lying in bed comfortably. In no apparent distress. Pain is well controlled. Patient has been urinating, denies any dysuria. Eating well, denies any abdominal pain, nausea or vomiting. Hospital Course This is a 57-year-old male patient with a known medical history of CAD with history of aortic valve replacement, hyperlipidemia, COPD and hypertension who presented to the ED with intractable right inguinal pain. Intractable right inguinal pain suspect secondary to right inguinal hernia, abdominal/pelvis CT reviewed showing no calcified renal stones or hydronephrosis. Bilateral hydroceles. General surgery who ordered a scrotum ultrasound which was essentially unremarkable, there is presence of bilateral hydrocele and variocele. Hernia was nonpalpable. No surgical intervention at this time. Follow-up with general surgery after discharge. Pain was controlled with IV narcotics, eventually tapered down to p.o. narcotics and Toradol. This has improved pain. Zofran was available as needed for nausea. Patient was hydrated with IV fluids. Control pain, IV narcotics available per pain scale. Attempt to wean. Stress importance of anti-inflammatory, Toradol available. CBC and BMP reviewed, essentially unremarkable. UA obtained, unremarkable. Did not have a fever. Consult placed to urology, concerning for possible for epididymoorchitis. Recommended hydration, antibiotics and pain control with NSAIDs. Other chronic medical problems include hypertension, hyperlipidemia, CAD and tobacco abuse. Patient was discharged home with recognitions to follow-up with urology, general surgery PCP. Patient was stable at time of discharge. Pt Condition on Discharge: Stable Discharge Disposition: Discharge Home Discharge Time: <= 30 minutes Discharge Instructions DIET: Follow Instructions for: Heart Healthy Diet Activities you can perform: Regular-No Restrictions Follow up Referrals: PCP Follow-up - 1 Week Surgical - 3 Weeks with Steve Clark MD Urology - 1 Week New Medications: Doxycycline Hyclate (Doxycycline Hyclate) 100 Mg Tab 100 MG PO BID for infection for 7 Days, #14 TAB Famotidine (Pepcid) 20 Mg Tab 10 MG PO BID for indigestion for 10 Days, #20 TAB 0 Refills Ketorolac (Ketorolac) 10 Mg Tab 10 MG PO Q6HR PRN for PAIN for 5 Days, #20 TAB 0 Refills Hydrocodone/Acetaminophen (Hydrocodone-Acetamin 5-325 mg) 5 Mg-325 Mg Tablet 1 TAB PO Q6HR PRN for PAIN SCALE 3 TO 5 for 5 Days, #20 TAB Sennosides (Senna-Lax) 8.6 Mg Tab 17.2 MG PO Q12H PRN for Moderate constipation for 5 Days, #10 TAB Continued Medications: Aspirin (Aspirin) 325 Mg Tab 325 MG PO DAILY, #30 TAB 0 Refills Atenolol (Atenolol) 50 Mg Tab 50 MG PO DAILY for Blood Pressure Management, #30 TAB 0 Refills Atorvastatin (Atorvastatin) 20 Mg Tab 20 MG PO HS for Cholesterol Management, #30 TAB 0 Refills Hydroxyzine HCl (Hydroxyzine HCl) 50 Mg Tab 50 MG PO BID PRN for NAUSEA, TAB 0 Refills Briana Manrique Dec 11, 2017 12:37
[2017-12-11] MEDS ORDERED: DOXY100T PO (12:42)
[2017-12-11] MEDS ORDERED: HYDR-3516 PO (12:42)
[2017-12-11] MEDS ORDERED: SENN187 PO (12:42)
[2017-12-11] MEDS ORDERED: KETO10 PO (12:42)
[2017-12-11] MEDS ORDERED: FAMO1TAB37 PO (12:42)
[2017-12-11 13:03] VITALS: RESP 18
== END 2017-12-11 14:42 | disposition home or self-care (01) | DRG 728 ==
LOC: PHED 16:44 → PHEDA 20:45 → PH3A 21:58
PROVIDERS: ADMIT Hospitalist; ATTEND Hospitalist
DX: N45.2 Orchitis (principal); Q23.1 Congenital insufficiency of aortic valve; I10 Essential (primary) hypertension; N43.3 Hydrocele, unspecified; J44.9 Chronic obstructive pulmonary disease, unspecified; I25.10 Atherosclerotic heart disease of native coronary artery without angina pectoris; E78.5 Hyperlipidemia, unspecified; I73.00 Raynaud's syndrome without gangrene; F12.90 Cannabis use, unspecified, uncomplicated; F17.210 Nicotine dependence, cigarettes, uncomplicated; Z88.1 Allergy status to other antibiotic agents; Z95.2 Presence of prosthetic heart valve
CPT/HCPCS: 74176; 76870; 80053; 81001; 83690; 85025; 85610; 85730; 93975; 96374; 96375; 96376; J0696; J1170; J1885; J1940; J2270; J2405; J7030; J7050; Q9963

== ENCOUNTER 2017-12-18 16:08 | Emergency (ER) | payer OTHER, MEDICAID ==
[~2017-12-18] VITALS: Ht 167.6 cm; Wt 87.0 kg
[~2017-12-18 16:08] MED LIST changes: -CHLO25TA2 PO; -COLA100C5 PO; +DOXY100T PO; +FAMO1TAB37 PO; +HYDR-3516 PO; +KETO10 PO; +SENN187 PO; -TRAM50TA PO
[2017-12-18 16:13] VITALS: BP 141/62; PULSE 72; RESP 18; TEMP 97.9; O2SAT 100
[2017-12-18] MEDS ORDERED: FURO1TAB60 PO (17:07)
[2017-12-18] MEDS ORDERED: HYDR-3516 PO (17:07)
--- NOTE | 2017-12-18 17:07 | PD ---
HPI Chief Complaint: Abdominal Pain Time Seen by Provider: 16:43 Travel History International Travel<30 days: No Contact w/Intl Traveler<30days: No Traveled to known affect area: No History of Present Illness HPI 57-year-old male here for evaluation of right inguinal pain. The patient has been seen in the emergency department 3 other times in the last month for the same pain. He was admitted on 12/08/17 and discharged on 12/11/17. During this admission he had a CT abdomen pelvis that did not show an inguinal hernia and did not show an etiology for the patient's pain. He also had a scrotal ultrasound that showed testicles within normal limits, bilateral varicoceles, small bilateral hydroceles, no gross hernia identified in the scrotum. He was evaluated by urology and per their note the patient has a lot of scrotal edema and recommendation was for the patient to be on doxycycline for suspected epididymal orchitis. Patient tells me that his pain is unchanged since he was discharged on 12/11/17. He describes a pulling sensation in his right inguinal region that is worse with movements, moderate in severity. No vomiting. His last bowel movement was a couple of hours ago and was normal. No fevers. He tells me he was supposed to be discharged home with a prescription for Lasix, however he never received this prescription and is requesting a prescription for Lasix to help with his scrotal edema. No chest pain or dyspnea. He also tells me that [facility] and was referred to a surgeon whom he saw last week. The surgeon apparently told him that he does not feel a hernia on exam and he would need the reports from the scans that he had while here. He is requesting a copy of these reports. PFSH Past Medical History Hx Anticoagulant Therapy: Yes (325 MG. ASA DAILY) Arthritis: Yes Asthma: Yes Anxiety: Yes Depression: Yes Cancer: No Cardiovascular Problems: Yes High Cholesterol: Yes COPD: Yes Coronary Artery Disease: Yes Diabetes: No Diminished Hearing: No Endocrine: No Genitourinary: No Hypertension: Yes Immune Disorder: No Musculoskeletal: Yes Neurologic: Yes Psychiatric: Yes Reproductive: No Respiratory: Yes Migraines: Yes Ulcer: Yes Past Surgical History Abdominal Surgery: Yes (gallbladder removal) Cardiac Surgery: Yes (Cadaver aortic valve 2016, valve replacement) Cholecystectomy: Yes Joint Replacement: Yes (knee, ankle, shoulder, elbow) Thoracic Surgery: Yes (lung) Social History Alcohol Use: No Tobacco Use: Yes (/2 PPD) Substance Use: No Allergies-Medications (Allergen,Severity, Reaction): Coded Allergies: erythromycin base (Verified Allergy, Severe, HIVES, 12/18/17) fenoprofen (Verified Allergy, Severe, HIVES, 12/18/17) Reported Meds & Prescriptions Reported Meds & Active Scripts Active Doxycycline Hyclate 100 Mg Tab 100 Mg PO BID 7 Days Pepcid (Famotidine) 20 Mg Tab 10 Mg PO BID 10 Days Senna-Lax (Sennosides) 8.6 Mg Tab 17.2 Mg PO Q12H PRN 5 Days Hydrocodone-Acetamin 5-325 mg (Hydrocodone/Acetaminophen) 5 Mg-325 Mg Tablet 1 Tab PO Q6HR PRN 5 Days Ketorolac (Ketorolac Tromethamine) 10 Mg Tab 10 Mg PO Q6HR PRN 5 Days Reported Hydroxyzine HCl 50 Mg Tab 50 Mg PO BID PRN Aspirin 325 Mg Tab 325 Mg PO DAILY Atorvastatin (Atorvastatin Calcium) 20 Mg Tab 20 Mg PO HS Atenolol 50 Mg Tab 50 Mg PO DAILY Review of Systems Except as stated in HPI: all other systems reviewed are Neg Physical Exam Narrative GENERAL: Well-developed, well-nourished, no apparent distress. SKIN: Focused skin assessment warm/dry. HEAD: Atraumatic. Normocephalic. EYES: Pupils equal and round. No scleral icterus. No injection or drainage. ENT: Mucous membranes pink and moist. NECK: Trachea midline. No JVD. CARDIOVASCULAR: Regular rate and rhythm. No murmur appreciated. RESPIRATORY: No accessory muscle use. Clear to auscultation. Breath sounds equal bilaterally. GASTROINTESTINAL: Abdomen soft, non-tender, nondistended. : Tenderness along the right inguinal canal without hernia. Scrotal edema with moderate right testicular tenderness. No crepitus or necrosis to the scrotum. No warmth or erythema. No fluctuance or induration. MUSCULOSKELETAL: No obvious deformities. No clubbing. No cyanosis. Moderate bilateral lower extremity edema. NEUROLOGICAL: Awake and alert. No obvious cranial nerve deficits. Motor grossly within normal limits. Normal speech. PSYCHIATRIC: Appropriate mood and affect; insight and judgment normal. Data Data Last Documented VS Vital Signs Date Time Temp Pulse Resp B/P (MAP) Pulse Ox O2 Delivery O2 Flow Rate FiO2 12/18/17 16:13 97.9 72 18 141/62 (88) 100 MDM Medical Decision Making Medical Screen Exam Complete: Yes Emergency Medical Condition: Yes Differential Diagnosis Groin strain, chronic pain, inguinal hernia Narrative Course This is a 57-year-old male who is here complaining of right inguinal pain. Patient has had this pain for over a month and this is his fourth visit to the emergency department here for this pain. He was admitted on 12/08/17 and discharged on 12/11/17 and was evaluated by general surgery as well as urology. CT scan showed no inguinal hernia, no etiology for the patient's pain. Scrotal ultrasound shows testicles within normal limits, bilateral varicoceles, small bilateral hydroceles. Urology recommendations were for the patient to be on doxycycline for 1 month for suspected epididymal orchitis. Patient does have scrotal edema without signs of Renee's gangrene. His pain is unchanged since he was discharged on 12/11/17. He states he takes naproxen for the pain and was taking hydrocodone, however ran out of this medication. He is being followed by surgeon as an outpatient with [facility]. At this point I do not believe that further workup in the emergency department is warranted and the patient needs to follow-up with his physicians as an outpatient. This is not an acute issue. I will give him a short course of hydrocodone to help with his pain. He was encouraged to continue his doxycycline. He was advised on when to return to the emergency department. He verbalizes understanding and agreement with plan. Diagnosis Primary Impression: Right inguinal pain Additional Impression: Scrotal edema Referrals: General Surgeon 3 days Primary Care Physician 3 days Urologist 3 days Additional Instructions: Follow-up with your primary care physician this week. Follow-up with your urologist this week. Follow-up with your general surgeon this week. Return to the emergency department for worsening symptoms or any other concerns. Scripts Furosemide (Lasix) 40 Mg Tab 40 MG PO DAILY, #30 TAB 0 Refills Prov: Kaden Parker MD 12/18/17 Hydrocodone-Acetaminophen (Hydrocodone-Acetaminophen) 5-325 mg Tab 1 TAB PO Q6H Y for PAIN, #6 TAB 0 Refills Prov: Kaden Parker MD 12/18/17 Disposition: 01 DISCHARGE HOME Condition: Stable Kaden Parker MD Dec 18, 2017 17:07
== END 2017-12-18 17:37 | disposition home or self-care (01) ==
LOC: PHED 16:08
DX: R10.31 Right lower quadrant pain (principal); N50.89 Other specified disorders of the male genital organs; N43.3 Hydrocele, unspecified; J44.9 Chronic obstructive pulmonary disease, unspecified; I10 Essential (primary) hypertension; Z72.0 Tobacco use; Z79.01 Long term (current) use of anticoagulants; Z88.1 Allergy status to other antibiotic agents
CPT/HCPCS: 99283

== ENCOUNTER 2017-12-26 11:25 | Emergency (ER) | payer OTHER, MEDICAID ==
[~2017-12-26] VITALS: Ht 170.2 cm; Wt 84.0 kg
[~2017-12-26 11:25] MED LIST changes: +FURO1TAB60 PO; -KETO10 PO
[2017-12-26 11:37] VITALS: BP 120/56; PULSE 66; RESP 16; TEMP 98.7; O2SAT 96
[2017-12-26] MEDS ORDERED: FUROSEMIDE 100 MG/10 ML VIAL IV PUSH ONE (12:45)
--- NOTE | 2017-12-26 13:21 | PD ---
HPI Chief Complaint: Complaint Time Seen by Provider: 12:34 Travel History International Travel<30 days: No Contact w/Intl Traveler<30days: No Traveled to known affect area: No History of Present Illness HPI 57-year-old man, presents to the emergency department complaining of scrotal edema lower extremity edema. He has been in the emergency department several times with similar complaints. Initially thought he had an inguinal hernia, he was seen by urology, he thought he may have epididymal orchitis. Since that time he developed worsening scrotal swelling as well as bilateral pitting lower extremity edema. He states he has had similar trouble in the past. He has been on Lasix in the past. He has a history of cirrhosis. He just moved down to the area is being followed by the OR. He has had heart disease in the past and has had 3 aortic valve replacement related to his congenital bicuspid aortic valve, but states he had an echo recently that showed that his heart was working normal. Denies any shortness of breath orthopnea. History Past Medical History Narrative Medical CAD History of multiple aortic valve replacements Hyperlipidemia COPD Hypertension Social History Alcohol Use: No (quit) Tobacco Use: Yes (10/03 PPD) Allergies-Medications (Allergen,Severity, Reaction): Coded Allergies: erythromycin base (Verified Allergy, Severe, HIVES, 12/26/17) fenoprofen (Verified Allergy, Severe, HIVES, 12/26/17) Reported Meds & Prescriptions Reported Meds & Active Scripts Active Lasix (Furosemide) 40 Mg Tab 40 Mg PO DAILY Hydrocodone-Acetaminophen 5-325 mg Tab 1 Tab PO Q6H PRN Pepcid (Famotidine) 20 Mg Tab 10 Mg PO BID 10 Days Senna-Lax (Sennosides) 8.6 Mg Tab 17.2 Mg PO Q12H PRN 5 Days Reported Aspirin 325 Mg Tab 325 Mg PO DAILY Atorvastatin (Atorvastatin Calcium) 20 Mg Tab 20 Mg PO HS Atenolol 50 Mg Tab 50 Mg PO DAILY Review of Systems Except as stated in HPI: all other systems reviewed are Neg Physical Exam Narrative GENERAL: Well-appearing 57-year-old man, no acute distress. SKIN: Focused skin assessment warm/dry. CARDIOVASCULAR: Regular rate and rhythm. No murmur appreciated. RESPIRATORY: No accessory muscle use. Clear to auscultation. Breath sounds equal bilaterally. GASTROINTESTINAL: Abdomen soft, non-tender, nondistended. Hepatic and splenic margins not palpable. : Scrotal edema with some tenderness. No erythema or cellulitis. MUSCULOSKELETAL: No obvious deformities. Pitting edema bilateral lower extremities. NEUROLOGICAL: Awake and alert. No obvious cranial nerve deficits. Motor grossly within normal limits. Normal speech. PSYCHIATRIC: Appropriate mood and affect; insight and judgment normal. Data Data Last Documented VS Vital Signs Date Time Temp Pulse Resp B/P (MAP) Pulse Ox O2 Delivery O2 Flow Rate FiO2 12/26/17 14:00 65 100/63 (75) 96 Room Air 12/26/17 11:37 98.7 16 Orders Orders Basic Metabolic Panel (Bmp) (12/26/17 12:45) Furosemide Inj (Lasix Inj) (12/26/17 12:45) Acetaminophen (Tylenol) (12/26/17 14:15) Labs Laboratory Tests Test 12/26/17 15:10 Blood Urea Nitrogen 29 MG/DL Creatinine 1.30 MG/DL Random Glucose 81 MG/DL Calcium Level 8.4 MG/DL Sodium Level 137 MEQ/L Potassium Level 4.2 MEQ/L Chloride Level 104 MEQ/L Carbon Dioxide Level 27.5 MEQ/L Anion Gap 6 MEQ/L Estimat Glomerular Filtration Rate 57 ML/MIN [facility] Medical Decision Making Medical Screen Exam Complete: Yes Emergency Medical Condition: Yes Interpretation(s) BMP: Mildly elevated BUN consistent with previous Differential Diagnosis Edema, renal failure, lymphedema, venous obstruction, liver disease, other Narrative Course Medical decision making 57-year-old man with lower extremity edema and scrotal edema. Scrotal component is prominent but I think this is cirrhosis, has been on diuretics in the past. He has been on 40 mg of Lasix without significant effect. He may need to double the Lasix or add a different diuretic. Diagnosis Primary Impression: Scrotal edema Additional Impression: Lower extremity edema Additional Instructions: Continue Lasix 40 mg daily as prescribed. Add metolazone once daily as prescribed. [facility] this [facility]. Weigh yourself daily. Return to the emergency department for any new or worsening symptoms. Med/Other Pt SpecificInfo: Prescription(s) given Scripts Spironolactone (Spironolactone) 50 Mg Tab 50 MG PO DAILY, #7 TAB 0 Refills Prov: Pablo Moe MD 12/26/17 Disposition: 01 DISCHARGE HOME Condition: Stable Pablo Moe MD Dec 26, 2017 13:20
[2017-12-26 14:00] VITALS: BP 100/63; PULSE 65; O2SAT 96
[2017-12-26] MEDS ORDERED: ACETAMINOPHEN 500 MG CPLT PO ONE (14:15)
[2017-12-26 15:39] LABS: BICARBONATE 27.5 MEQ/L (21.0-32.0); CALCIUM 8.4 MG/DL (8.5-10.1)
[2017-12-26 15:43] LABS: CREATININE 1.3 MG/DL (0.60-1.30)
[2017-12-26] MEDS ORDERED: SPIR50TA PO (15:52)
== END 2017-12-26 16:10 | disposition home or self-care (01) ==
LOC: PHED 11:25
DX: N50.89 Other specified disorders of the male genital organs (principal); R60.0 Localized edema; K74.60 Unspecified cirrhosis of liver; I10 Essential (primary) hypertension; I25.10 Atherosclerotic heart disease of native coronary artery without angina pectoris; E78.5 Hyperlipidemia, unspecified; J44.9 Chronic obstructive pulmonary disease, unspecified; F17.210 Nicotine dependence, cigarettes, uncomplicated; Z88.1 Allergy status to other antibiotic agents; Z88.8 Allergy status to other drugs, medicaments and biological substances; Z79.899 Other long term (current) drug therapy
CPT/HCPCS: 80048; 96374; 99284; J1940

== ENCOUNTER 2018-03-14 11:54 | Emergency (ER) | payer OTHER, MEDICAID ==
[~2018-03-14] VITALS: Ht 170.2 cm; Wt 74.1 kg
[~2018-03-14 11:54] MED LIST changes: -DOXY100T PO; -HYDR50TA94 PO; +SPIR50TA PO
[2018-03-14 11:59] VITALS: BP 115/60; PULSE 99; RESP 16; TEMP 98.3; O2SAT 100
--- NOTE | 2018-03-14 12:55 | PD ---
HPI Chief Complaint: Musculoskeletal Complaint Time Seen by Provider: 12:34 Travel History International Travel<30 days: No Contact w/Intl Traveler<30days: No Traveled to known affect area: No History of Present Illness HPI 57-year-old male here with right wrist pain for several weeks. He has a history of carpal tunnel. He reports pain and tingling sensation within the first-third digits of the right hand. No injury or trauma. He is requesting a splint, steroids and referral to orthopedics. He denies any weakness of the upper extremity. 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 Symptom severity is moderate. No aggravating or alleviating factors. PFSH Past Medical History Hx Anticoagulant Therapy: Yes (asa 325mg) Arthritis: Yes Asthma: Yes Anxiety: Yes Depression: Yes Cancer: No Cardiovascular Problems: Yes High Cholesterol: Yes COPD: Yes Coronary Artery Disease: Yes Diabetes: No Diminished Hearing: No Endocrine: No Gastrointestinal Disorders: Yes Genitourinary: No Hypertension: Yes Immune Disorder: No Implanted Vascular Access Dvce: Yes Musculoskeletal: Yes Neurologic: Yes Psychiatric: Yes Reproductive: No Respiratory: Yes (copd) Migraines: Yes Ulcer: Yes Tetanus Vaccination: < 5 Years Influenza Vaccination: Yes Past Surgical History Abdominal Surgery: Yes (Gallbladder removal) Cardiac Surgery: Yes (AVR X's 3) Cholecystectomy: Yes Joint Replacement: Yes (Knee, ankle, shoulder, elbow) Thoracic Surgery: Yes (Lung) Other Surgery: Yes Social History Alcohol Use: No (Quit) Tobacco Use: Yes (10/04 PPD) Substance Use: Yes (Marijuana occ.) Allergies-Medications (Allergen,Severity, Reaction): Coded Allergies: erythromycin base (Verified Allergy, Severe, HIVES, 03/14/18) fenoprofen (Verified Allergy, Severe, HIVES, 03/14/18) Reported Meds & Prescriptions Reported Meds & Active Scripts Active Lasix (Furosemide) 40 Mg Tab 40 Mg PO DAILY Reported Aspirin 325 Mg Tab 325 Mg PO DAILY Atenolol 50 Mg Tab 50 Mg PO DAILY Review of Systems Except as stated in HPI: all other systems reviewed are Neg General / Constitutional: No: Fever Eyes: No: Visual changes HENT: No: Headaches Cardiovascular: No: Chest Pain or Discomfort Respiratory: No: Shortness of Breath Gastrointestinal: No: Abdominal Pain Genitourinary: No: Dysuria Skin: No Rash Neurologic: No: Weakness Physical Exam Narrative GENERAL: Alert and well-appearing 57-year-old male. Resting comfortably on the stretcher. SKIN: Warm and dry. HEAD: Normocephalic. EYES: No injection or drainage. NECK: Supple. No cervical midline tenderness. Freely moves the neck. CARDIOVASCULAR: Regular rate and rhythm without murmurs, gallops, or rubs. RESPIRATORY: Breath sounds equal bilaterally. No accessory muscle use. GASTROINTESTINAL: Abdomen soft, non-tender, nondistended. MUSCULOSKELETAL: No cyanosis, or edema. Right upper extremity: Patient reports burning type pain along the medial nerve distribution. Sensation is intact. Motor and sensation is intact. Positive Tinel sign. Palpable radial pulse. Brisk cap refill. Data Data Last Documented VS Vital Signs Date Time Temp Pulse Resp B/P (MAP) Pulse Ox O2 Delivery O2 Flow Rate FiO2 03/14/18 11:59 98.3 99 16 115/60 (78) 100 Orders Orders Splint Or Brace Apply/Monitor (03/14/18 12:51) Dexamethasone Inj (Decadron Inj) (03/14/18 13:00) Ed Discharge Order (03/14/18 12:55) MDM Medical Decision Making Medical Screen Exam Complete: Yes Emergency Medical Condition: Yes Differential Diagnosis Carpal tunnel, arthralgia, neuropathy Narrative Course 57-year-old male here with history of carpal tunnel here with wrist pain. She is requesting splint and referral to orthopedic. Patient is allergic to NSAIDs but reports steroids have helped in the past. His exam is consistent with carpal tunnel. He was given a shot of Decadron and a Velcro wrist splint applied. Referred to orthopedist. Return precautions discussed. Patient verbalized understanding and agrees plan Diagnosis Primary Impression: Carpal tunnel syndrome Qualified Codes: G56.01 - Carpal tunnel syndrome, right upper limb Patient Instructions: General Instructions Departure Forms: Tests/Procedures Additional Instructions: Wrist splint as directed. Tylenol as needed for pain. Call to schedule follow-up appointment with orthopedic doctor He was given the name and number to Dr. Walter Disposition: 01 DISCHARGE HOME Condition: Stable Val Hardwick Papito FRIAS Mar 14, 2018 12:54
[2018-03-14] MEDS ORDERED: DEXAMETHASONE SOD PHOS 4 MG/ML VIAL IM ONE (13:00)
== END 2018-03-14 13:05 | disposition home or self-care (01) ==
LOC: PHEFT 11:54
DX: G56.01 Carpal tunnel syndrome, right upper limb (principal); E78.00 Pure hypercholesterolemia, unspecified; I10 Essential (primary) hypertension; I25.10 Atherosclerotic heart disease of native coronary artery without angina pectoris; J44.9 Chronic obstructive pulmonary disease, unspecified; F32.9 Major depressive disorder, single episode, unspecified; F17.210 Nicotine dependence, cigarettes, uncomplicated; Z88.1 Allergy status to other antibiotic agents; Z79.82 Long term (current) use of aspirin; Z79.899 Other long term (current) drug therapy
CPT/HCPCS: 96372; 99283; J1100; L3908

== ENCOUNTER 2018-03-19 01:46 | Emergency (ER) | payer OTHER, MEDICAID ==
[~2018-03-19] VITALS: Ht 170.2 cm; Wt 79.3 kg
[~2018-03-19 01:46] MED LIST changes: -ATOR20TA15 PO; -FAMO1TAB37 PO; -HYDR-3516 PO; -SENN187 PO; -SPIR50TA PO
[2018-03-19 01:52] VITALS: BP 121/78; PULSE 104; RESP 16; TEMP 97.8; O2SAT 99
--- NOTE | 2018-03-19 03:28 | PD ---
HPI Chief Complaint: Pain: Acute or Chronic Time Seen by Provider: 03:19 Travel History International Travel<30 days: No Contact w/Intl Traveler<30days: No Traveled to known affect area: No History of Present Illness HPI Patient is a 57 year old male presents to the ER for evaluation of low back pain for years which has been worse over the past few days. States hasn't been able to sleep. No saddle anesthesia, no dysuria, no difficulty walking. Patients pain is constant, no alleviating or exacerbating factors, states severe , no trauma. PFSH Past Medical History Hx Anticoagulant Therapy: Yes (asa 325mg) Arthritis: Yes Asthma: Yes Anxiety: Yes Depression: Yes Cancer: No Cardiovascular Problems: Yes (AORTIC VALVE REPLACEMENT) High Cholesterol: Yes COPD: Yes Coronary Artery Disease: Yes Diabetes: No Diminished Hearing: No Endocrine: No Gastrointestinal Disorders: Yes Genitourinary: No Hypertension: Yes Immune Disorder: No Implanted Vascular Access Dvce: Yes Musculoskeletal: Yes Neurologic: Yes Psychiatric: Yes Reproductive: No Respiratory: Yes (copd) Migraines: Yes Ulcer: Yes Tetanus Vaccination: < 5 Years Influenza Vaccination: Yes Past Surgical History Abdominal Surgery: Yes (Gallbladder removal) Cardiac Surgery: Yes (AVR X's 3) Cholecystectomy: Yes Joint Replacement: Yes (Knee, ankle, shoulder, elbow) Thoracic Surgery: Yes (Lung) Other Surgery: Yes Social History Alcohol Use: Yes (OCC) Tobacco Use: Yes (1/2 PPD) Substance Use: Yes (Marijuana occ.) Allergies-Medications (Allergen,Severity, Reaction): Coded Allergies: erythromycin base (Verified Allergy, Severe, HIVES, 03/19/18) fenoprofen (Verified Allergy, Severe, HIVES, 03/19/18) Reported Meds & Prescriptions Reported Meds & Active Scripts Active Lasix (Furosemide) 40 Mg Tab 40 Mg PO DAILY Reported Aspirin 325 Mg Tab 325 Mg PO DAILY Atenolol 50 Mg Tab 50 Mg PO DAILY Review of Systems Except as stated in HPI: all other systems reviewed are Neg Physical Exam Narrative GENERAL: WD/WN in moderate discomfort, pacing back and forth in the exam room. SKIN: Warm and dry. HEAD: Normocephalic. EYES: No scleral icterus. No injection or drainage. NECK: Supple, trachea midline. No JVD or lymphadenopathy. CARDIOVASCULAR: Regular rate and rhythm without murmurs, gallops, or rubs. RESPIRATORY: Breath sounds equal bilaterally. No accessory muscle use. GASTROINTESTINAL: Abdomen soft, non-tender, nondistended. MUSCULOSKELETAL: No cyanosis, or edema. No midline c/t/l/s spine tenderness/ step off/deformity. PMS intact in all four extremities. BACK: Nontender without obvious deformity. No CVA tenderness. Data Data Last Documented VS Orders Orders Oxycodone (Roxicodone) (03/19/18 03:30) Ed Discharge Order (03/19/18 03:39) [facility] Medical Decision Making Medical Screen Exam Complete: Yes Emergency Medical Condition: Yes Differential Diagnosis Back pain, cauda equina syndrome excluded clinically, occult fracture unlikely, DDD Narrative Course Patient roomed in er. No indication for imaging at this time as he has a physician following him as outpatient. This appears to be chronic back pain. Discussed return to ED criteria. Pain medication given. Stable for DC. Diagnosis Primary Impression: Back pain Qualified Codes: M54.5 - Low back pain; G89.29 - Other chronic pain Patient Instructions: Back Pain (ED), General Instructions Disposition: 01 DISCHARGE HOME Condition: Stable Kenny Lozoya MD Mar 19, 2018 03:27
[2018-03-19 04:05] VITALS: BP 128/86
== END 2018-03-19 04:06 | disposition home or self-care (01) ==
LOC: PHED 01:46
DX: G89.29 Other chronic pain (principal); M54.5 Low back pain; I10 Essential (primary) hypertension; E78.00 Pure hypercholesterolemia, unspecified; I25.10 Atherosclerotic heart disease of native coronary artery without angina pectoris; J44.9 Chronic obstructive pulmonary disease, unspecified; M19.90 Unspecified osteoarthritis, unspecified site; F41.9 Anxiety disorder, unspecified; F32.9 Major depressive disorder, single episode, unspecified; F17.210 Nicotine dependence, cigarettes, uncomplicated; Z95.2 Presence of prosthetic heart valve; Z88.1 Allergy status to other antibiotic agents; Z79.82 Long term (current) use of aspirin
CPT/HCPCS: 99283

== ENCOUNTER 2018-04-20 00:04 | Inpatient (IN) ==
--- NOTE | 2018-04-20 00:34 | ED ---
HPI General Chief complaint: Abdominal Pain Stated complaint: abd pain/nausea Time Seen by Provider: 04/20/18 00:16 Source: patient and family Mode of arrival: ambulatory Limitations: no limitations History of Present Illness HPI narrative: Patient is a 57-year-old male with history of liver cirrhosis, coronary artery disease, COPD, hyperlipidemia, hypertension, CABG, multiple aortic valve replacement, atrial fibrillation, CHF, presents to the emergency room for evaluation of palpitations and chest pains. Patient reports that he was recently seen in the emergency room on April 06, 2018 for swelling to his lower extremities. Patient reports that he was also recently diagnosed with liver cirrhosis as he used to be an alcoholic, patient reports that he has stopped drinking alcohol for the past month. Patient reports that for the past 2 days, he has been having dyspnea on exertion, reports that he has been having intermittent episodes of palpitations. Patient reports that he felt as if he is in atrial fibrillation as his heart rate was in the 180s prior to coming to the emergency room. Patient reports that he is seen by the doctors at the ID, he does not have a lens engraver in this area. Reports concerns for his heart and his palpitations as well as dyspnea on exertion. Related Data Home Medications Medication Instructions Recorded Confirmed aspirin 325 mg PO DAILY 04/06/18 04/20/18 chlorthalidone 25 mg PO DAILY 04/06/18 04/20/18 nicotine 1 patch TRANSDERMAL DAILY 04/06/18 04/20/18 atenolol 25 mg PO BID 04/20/18 04/20/18 atorvastatin 10 mg PO DAILY 04/20/18 04/20/18 baclofen 10 mg PO TID 04/20/18 04/20/18 hydroxyzine pamoate 25 mg PO TID-QID PRN 04/20/18 04/20/18 Allergies Allergy/AdvReac Type Severity Reaction Status Date / Time erythromycin base Allergy Severe HIVES Verified 04/06/18 14:22 fenoprofen Allergy Severe HIVES Verified 04/06/18 14:22 Review of Systems Except as stated in HPI: all other systems reviewed are negative [facility] Medical History Medical History Afib (Acute) CAD (coronary artery disease) (Acute) CHF (congestive heart failure) (Acute) COPD (chronic obstructive pulmonary disease) (Acute) Cirrhosis (Acute) Endocarditis (Acute) H/O: HTN (hypertension) (Acute) Hepatitis C (Acute) Hyperlipemia (Acute) Myocardial infarct (Acute) Surgical History Surgical History H/O aortic valve replacement (Acute) History of cholecystectomy (Acute) Hx of CABG (Acute) Social History Social History Substance History: No History of Abuse Second Hand Smoke Exposure: No Smoking Status: Current every day smoker Tobacco Type: Cigarettes How Often Do You Have a Drink Containing Alcohol: Never Recent Travel in [facility] within the Last 8 Weeks: No Recent Out of Country Travel within the Last 8 Weeks: No Exam Narrative Exam Narrative: GENERAL: moderate distress SKIN: Focused skin assessment warm/dry. HEAD: Atraumatic. Normocephalic. EYES: Pupils equal and round. No scleral icterus. No injection or drainage. ENT: No nasal bleeding or discharge. Mucous membranes pink and moist. NECK: Trachea midline. No JVD. CARDIOVASCULAR: Regular rate and rhythm. No murmur appreciated. RESPIRATORY: No accessory muscle use. Clear to auscultation. Breath sounds equal bilaterally. GASTROINTESTINAL: Abdomen soft, non-tender, nondistended. Hepatic and splenic margins not palpable. MUSCULOSKELETAL: No obvious deformities. No clubbing. No cyanosis. +2 pedal edema. NEUROLOGICAL: Awake and alert. No obvious cranial nerve deficits. Motor grossly within normal limits. Normal speech. PSYCHIATRIC: Appropriate mood and affect; insight and judgment normal. Course Initial Documented Vital Signs Temperature 98 F 04/20/18 00:11 Pulse Rate 88 04/20/18 00:11 Blood Pressure 109/62 04/20/18 00:11 Pulse Oximetry 98 04/20/18 00:11 Last Documented Vital Signs Temperature 98 F 04/20/18 00:11 Pulse Rate 78 04/20/18 02:31 Respiratory Rate 20 04/20/18 02:31 Blood Pressure 107/77 04/20/18 02:31 Pulse Oximetry 98 04/20/18 02:31 Medical Decision Making MDM Narrative Medical decision making narrative: During the course of the patients emergency department visit, the patients history, examination, and differential diagnosis were reviewed with the patient. The patient was placed on a monitor and storage bin tender with oximetry and frequent blood pressure monitoring. The patient had an IV access obtained and blood work sent for analysis. The patient was initially provided asa The patients laboratory studies were reviewed and remarkable for: Cr 2.0 - which is elevated from baseline Cr 1.6 trop less than 0.02 potassium 6.2 - patient was given sodium bicarb, Kayexalate, calcium gluconate to help lower this sodium 129 Patient required admission to the hospital for serial troponins as well as well as for electrolyte managment case reviewed with Dr. Park who accepts patient to service Differential Diagnosis Differential Diagnosis: acs, arrythmia, atrial fibrillation, chf, electrolyte abnormality, liver failure Lab Data Result diagrams: 04/20/18 00:45 04/20/18 00:45 Lab Results 04/20/18 04/20/18 04/20/18 Range/Units 00:45 00:45 00:45 CBC w Diff Auto diff final WBC 7.5 (4.0-11.0) th/mm3 RBC 4.42 L (4.50-5.90) mil/mm3 Hgb 12.7 L (13.0-17.0) gm/dL Hct 37.8 L (39.0-51.0) % MCV 85.6 (80.0-100.0) fL MCH 28.7 (27.0-34.0) pg MCHC 33.5 (32.0-36.0) % RDW 16.5 (11.6-17.2) % Plt Count 233 (150-450) th/mm3 MPV 8.5 (7.0-11.0) fL Neut % (Auto) 67.8 (16.0-70.0) % Lymph % (Auto) 20.3 (9.0-44.0) % Chase % (Auto) 7.7 (0.0-8.0) % Eos % (Auto) 3.3 (0.0-4.0) % Baso % (Auto) 0.9 (0.0-2.0) % Neut # (Auto) 5.1 (1.8-7.7) th/mm3 Lymph # (Auto) 1.5 (1.0-4.8) th/mm3 Chase # (Auto) 0.6 (0.0-0.9) th/mm3 Eos # (Auto) 0.2 (0.0-0.4) th/mm3 Baso # (Auto) 0.1 (0.0-0.2) th/mm3 WBC Differential . Differential Comment . PT 14.3 H (9.8-11.6) sec INR 1.4 Ratio APTT 28.7 (24.3-30.1) sec Sodium 129 L (136-145) meq/L Potassium 6.2 H (3.5-5.1) meq/L Chloride 99 (98-107) meq/L Carbon Dioxide 22.5 (21.0-32.0) meq/L Anion Gap 8 (5-15) meq/L BUN 49 H (7-18) mg/dL Creatinine 2.00 H (0.60-1.30) mg/dL Estimated GFR 34 L (>89) mL/min Random Glucose 90 (74-106) mg/dL Calcium 9.0 (8.5-10.1) mg/dL Magnesium 2.2 (1.5-2.5) mg/dL Total Bilirubin 1.3 H (0.2-1.0) mg/dL AST 104 H (15-37) U/L ALT 122 H (12-78) U/L Alkaline Phosphatase 186 H (45-117) U/L Total Creatine Kinase 96 (39-308) U/L Troponin I Less than 0.02 L (0.02-0.05) ng/mL Total Protein 8.9 H (6.4-8.2) g/dL Albumin 3.9 (3.4-5.0) g/dL Lipase 268 (73-393) U/L Serum Alcohol Less than 3 (0-5) mg/dL Imaging Data Radiologist's impression: Chest X-Ray 04/20/18 00:26 CONCLUSION: Very small left base pleural effusion. Otherwise negative for acute process. Discharge Plan Discharge Disposition Patient Disposition: 30 Still Patient Physicians Team ED Provider: Jennifer Alfred Primary Care Provider: [facility] /Orders / Referrals /Forms Prescriptions: No Action aspirin 325 mg Tablet 325 mg PO DAILY RF: 0 chlorthalidone 25 mg Tablet 25 mg PO DAILY RF: 0 nicotine 21 mg/24 hr Patch 24 Hour 1 patch TRANSDERMAL DAILY RF: 0 atenolol 25 mg Tablet 25 mg PO BID RF: 0 atorvastatin 10 mg Tablet 10 mg PO DAILY RF: 0 baclofen 10 mg Tablet 10 mg PO TID RF: 0 hydroxyzine pamoate 25 mg Capsule 25 mg PO TID-QID PRN (Reason: Edema) RF: 0 Status ED Status: With Doctor
[2018-04-20 00:59] LABS: Baso # (Auto) 0.1 th/mm3 (0.0-0.2); Baso % (Auto) 0.9 % (0.0-2.0); Eos # (Auto) 0.2 th/mm3 (0.0-0.4); Eos % (Auto) 3.3 % (0.0-4.0); Hematocrit 37.8 % (39.0-51.0); Hemoglobin 12.7 gm/dL (13.0-17.0); Lymph # (Auto) 1.5 th/mm3 (1.0-4.8); Lymph % (Auto) 20.3 % (9.0-44.0); Mean Corpuscular HGB Conc 33.5 % (32.0-36.0); Mean Corpuscular Hemoglobin 28.7 pg (27.0-34.0); Mean Corpuscular Volume 85.6 fL (80.0-100.0); Mean Platelet Volume 8.5 fL (7.0-11.0); Mono # (Auto) 0.6 th/mm3 (0.0-0.9); Mono % (Auto) 7.7 % (0.0-8.0); Neut # (Auto) 5.1 th/mm3 (1.8-7.7); Neut % (Auto) 67.8 % (16.0-70.0); Platelet Count 233 th/mm3 (150-450); Red Blood Count 4.42 mil/mm3 (4.50-5.90); Red Cell Distribution Width 16.5 % (11.6-17.2); White Blood Count 7.5 th/mm3 (4.0-11.0)
--- NOTE | 2018-04-20 00:59 | XR ---
EXAM DATE: 04/20/2018 12:45 AM EDT AGE/SEX: 57 years / Male INDICATIONS: Chest pain, abdomional pain for 24 hours CLINICAL DATA: This is the patient's initial encounter. Patient reports that signs and symptoms have been present for 1 day and indicates a pain score of 10/10. MEDICAL/SURGICAL HISTORY: . Atrial fibrillation. Ulcerative colitis. CABG. Aortic valve replac ement COMPARISON: [facility], CT ABDOMEN & PELVIS W/O CONTRAST, 12/08/2017. [facility], CHEST PA & LAT, 12/01/2017. . FINDINGS: Very small pleural effusion at the left lung base. No infiltrates seen. No pneumothorax. Mild, stable cardiomegaly. Median sternotomy and CABG changes are again noted. CONCLUSION: Very small left base pleural effusion. Otherwise negative for acute process. Electronically signed by: Sivakumar Corley MD 04/20/2018 12:58 AM EDT
[2018-04-20] MEDS ORDERED: Ibuprofen 600 MG Tablet PO ONE (01:08)
[2018-04-20 01:14] LABS: Chloride 99 meq/L (98-107); Potassium 6.2 meq/L (3.5-5.1); Sodium 129 meq/L (136-145)
[2018-04-20 01:18] LABS: Albumin 3.9 g/dL (3.4-5.0); Anion Gap 8 meq/L (5-15); Carbon Dioxide 22.5 meq/L (21.0-32.0); Lipase 268 U/L (73-393)
[2018-04-20 01:19] LABS: Blood Urea Nitrogen 49 mg/dL (7-18); Glucose,Random 90 mg/dL (74-106); Magnesium 2.2 mg/dL (1.5-2.5)
[2018-04-20 01:20] LABS: Activated Partial Thrombo Time 28.7 sec (24.3-30.1); INR 1.4 Ratio; Prothrombin Time 14.3 sec (9.8-11.6)
[2018-04-20 01:21] LABS: Alanine Aminotransferase 122 U/L (12-78); Aspartate Aminotransferase 104 U/L (15-37); Glomerular Filtration Rate 34 mL/min (>89)
[2018-04-20 01:23] LABS: Total Protein 8.9 g/dL (6.4-8.2)
[2018-04-20 01:24] LABS: Alkaline Phosphatase 186 U/L (45-117)
[2018-04-20] MEDS ORDERED: Morphine Sulfate Inj 2 MG/ML Vial IV.PUSH ONE (02:16)
[2018-04-20 02:20] LABS: Creatine Kinase 96 U/L (39-308)
[2018-04-20] MEDS ORDERED: Calcium Gluconate Inj 1 GM in Sodium Chlor 0.9% Inj 100 ML IV.SIG ONE (02:29)
[2018-04-20] MEDS ORDERED: Dextrose 50% in Water 50 ML Vial IV.PUSH ONE (02:29)
[2018-04-20] MEDS ORDERED: Dextrose 5%/NaCl 0.45% Inj 500 ML IV.SIG ONE (02:39)
[2018-04-20] MEDS ORDERED: Bisacodyl 10 MG Supp RECTAL PRN (02:42)
[2018-04-20] MEDS ORDERED: Sodium Polystyrene Sulfonate/Sorbitol Liq 15 GM/60 ML UDC PO ONE (02:47)
[2018-04-20] MEDS: Morphine Sulfate Inj 2 MG/ML Vial IV.PUSH PRN ×5 (04:27→20:28)
[2018-04-20 05:09] LABS: Creatine Kinase 71 U/L (39-308)
[2018-04-20 08:00] LABS: Creatine Kinase 69 U/L (39-308)
[2018-04-20] MEDS: Aspirin 325 MG Tablet PO SCH (08:17)
[2018-04-20] MEDS: Baclofen 10 MG Tablet PO SCH ×3 (08:18→17:52)
[2018-04-20] MEDS: Propranolol 10 MG Tablet PO SCH ×3 (08:18→21:57)
[2018-04-20] MEDS: Senna/Docusate Sodium 8.6/50 MG Tablet PO SCH ×2 (08:18→21:58)
[2018-04-20] MEDS: Furosemide 40 MG Tablet PO SCH (08:19)
[2018-04-20 08:40] LABS: Carbon Dioxide 22.7 meq/L (21.0-32.0); Potassium 5.3 meq/L (3.5-5.1)
[2018-04-20] MEDS ORDERED: Spironolactone 50 MG Tablet PO SCH (09:00)
[2018-04-20] MEDS ORDERED: Sod Chloride 0.9% Inj 1,000 ML IV.CONT SCH (11:11)
--- NOTE | 2018-04-20 11:21 | P.HP ---
History of Present Illness Primary Care Physician: [facility] Chief Complaint: Muscle spasms, fatigue, chest pain History of Present Illness: 57-year-old male with rather extensive history, coronary disease, congestive heart failure, history of atrial fibrillation, history of alcohol abuse, cirrhosis, hepatitis C who presented to the hospital for a plethora of symptoms. Patient indicates over the last 2 weeks he has been experiencing symptoms to include fatigue, weakness, extremity edema, lightheadedness, dizziness, chest pain, spasms, shortness of breath, pain. Patient is undergoing outpatient workup by [place] at this time and does have an appointment next Monday for follow-up. However the patient did present to the emergency department on 04/06/18 because of lower extremity edema where he had ultrasound performed which did not indicate any DVTs and they increase his diuretic. Patient states that he has not improved since the increase in medication so he came back to the emergency department for evaluation. Patient was found to have multiple abnormalities, most emergent would be hyperkalemia with EKG findings of increased T-wave. Patient was treated with D5, calcium gluconate, sodium bicarb, Kayexalate, insulin. Patient was recommended admission for further evaluation and management. Upon review of medical records it appears that the patient is also had acute liver enzyme elevation as well as hyperbilirubinemia since his ER visit on 04/06/18, patient had relatively normal liver enzymes back in November 2017. They indicate that he has not been drinking any alcohol and they do not know why that they are elevated at this time. Upon evaluating patient he is sitting on the side of the bed with apparent colicky type cramping pain over in his left upper abdomen and left flank. He indicates that this is what he described to the ER as his chest pain. He states that he does not have any radiation to neck, back, shoulder, arm. He has not had any change in his nausea, shortness of breath, dyspnea. Patient and significant other at bedside are very concerned about his symptoms and came to the hospital in order for us to find out what is wrong with him and hopefully be able to correct it. - Diagnosis (1) Chest pain (2) Acute renal failure superimposed on stage 3 chronic kidney disease (3) Hyponatremia (4) Hyperkalemia (5) Elevated liver enzymes (6) Hyperbilirubinemia Inpatient Certification: I certify that the inpatient services were ordered in accordance with Medicare regulations governing the order. This includes certification that hospital inpatient services are reasonable and necessary and in the case of services not specified as inpatient-only under 42 CFR 419.22(n), that they are appropriately provided as inpatient services in accordance to with the 2-midnight benchmark under 43 CFR 412.3(e) Estimated Total Length of Stay (Days): 2 Plans for Post Hospital Care: Not yet determined Review of Systems All other systems reviewed negative except as stated in HPI Constitutional: Reports lack of energy, Reports weakness Cardiovascular: Reports chest pain, Reports shortness of breath, Reports shortness of breath with activity Respiratory: Reports shortness of breath, Reports shortness of breath with activity Gastrointestinal: Reports change in stools, Reports loose stools, Reports nausea PMFSH - History History Provided By: Patient - Medical History Medical History: Medical History (Last Updated 04/20/18 @ 10:51 by ADOLPH Hernandez) History of alcohol use Raynauds syndrome Tobacco abuse Afib CAD (coronary artery disease) CHF (congestive heart failure) COPD (chronic obstructive pulmonary disease) Cirrhosis Endocarditis H/O: HTN (hypertension) Hepatitis C Hyperlipemia Myocardial infarct - Surgical History Surgical History: Surgical History (Last Reviewed 04/20/18 @ 10:51 by ADOLPH Hernandez) H/O aortic valve replacement History of cholecystectomy Hx of CABG - Family History Family History: Family History (Last Updated 04/20/18 @ 10:53 by ADOLPH Hernandez) Father Family history of cancer Mother Family history of diabetes mellitus Mother Family history of breast cancer - Tobacco History Second Hand Smoke Exposure: Yes Tobacco Use In Past 30 Days: Yes Smoking Status: Current every day smoker Tobacco Type: Cigarettes - Alcohol History How Often Do You Have a Drink Containing Alcohol: Never - Substance Use History Substance History: Past History - Travel History Recent Travel in the [place] Within the Last 8 Weeks: No Recent Travel Out of the Country Within the Last 8 Weeks: No - Immunization History Tetanus Immunization: <5 Years Hx Influenza Vaccine This Season: Yes Medications and Allergies Active Medications: Active Medications Al Hydroxide/Mg Hydroxide (Milk Of Kayla Liq) 30 ml PO Q12H PRN PRN Reason: MILD CONSTIPATION Aspirin (Aspirin) 325 mg PO DAILY [facility] Last Admin: 04/20/18 08:17 Dose: 325 mg Atorvastatin Calcium (Lipitor) 10 mg PO DAILY [facility] Last Admin: 04/20/18 08:19 Dose: 10 mg Baclofen (Lioresal) 10 mg PO TID [facility] Last Admin: 04/20/18 08:18 Dose: 10 mg Bisacodyl (Dulcolax Supp) 10 mg RECTAL DAILY PRN PRN Reason: SEVERE CONSITIPATION Furosemide (Lasix) 40 mg PO DAILY [facility] Last Admin: 04/20/18 08:19 Dose: 40 mg Lactulose (Lactulose Liq) 30 ml PO DAILY PRN PRN Reason: SEVERE CONSITIPATION Morphine Sulfate (Morphine Inj) 2 mg IV.PUSH Q4H PRN PRN Reason: PAIN 6-10 Last Admin: 04/20/18 08:12 Dose: 2 mg Ondansetron HCl (Zofran Inj) 4 mg IV.PUSH Q6H PRN PRN Reason: NAUSEA OR VOMITING Last Admin: 04/20/18 04:37 Dose: 4 mg Oxycodone HCl (Roxicodone) 10 mg PO Q4H PRN PRN Reason: PAIN 3-5 Propranolol HCl (Inderal) 10 mg PO BID [facility] Last Admin: 04/20/18 08:18 Dose: 10 mg Senna/Docusate Sodium (Dolly-Colace) 1 tab PO BID [facility] Last Admin: 04/20/18 08:18 Dose: 1 tab Sennosides (Senokot) 17.2 mg PO Q12H PRN PRN Reason: Moderate Constipation Sodium Chloride (Ns Flush) 2 ml IV.FLUSH UNSCH PRN PRN Reason: FLUSH AFTER USING IV ACCESS Spironolactone (Aldactone) 50 mg PO DAILY [facility] Last Admin: 04/20/18 08:18 Dose: 50 mg Allergies Allergy/AdvReac Type Severity Reaction Status Date / Time erythromycin base Allergy Severe HIVES Verified 04/06/18 14:22 fenoprofen Allergy Severe HIVES Verified 04/06/18 14:22 Home Medications Medication Instructions Recorded Confirmed Type aspirin 325 mg PO DAILY 04/06/18 04/20/18 History chlorthalidone 25 mg PO DAILY 04/06/18 04/20/18 History nicotine 1 patch TRANSDERMAL DAILY 04/06/18 04/20/18 History atenolol 25 mg PO BID 04/20/18 04/20/18 History atorvastatin 10 mg PO DAILY 04/20/18 04/20/18 History baclofen 10 mg PO TID 04/20/18 04/20/18 History hydroxyzine pamoate 25 mg PO TID-QID PRN 04/20/18 04/20/18 History Exam Vital signs: Vital Signs 04/20/18 00:11 04/20/18 00:33 04/20/18 00:54 Temperature 98 F Pulse Rate 88 85 Respiratory Rate 20 Blood Pressure 109/62 100/66 Pulse Oximetry 98 98 95 04/20/18 02:31 04/20/18 03:34 04/20/18 04:00 Temperature 94.2 F L Pulse Rate 78 74 95 H Respiratory Rate 20 18 20 Blood Pressure 107/77 102/71 102/72 Pulse Oximetry 98 100 04/20/18 04:20 04/20/18 05:08 04/20/18 05:51 Temperature 94.2 F L Pulse Rate 92 H 95 H 92 H Respiratory Rate 20 Blood Pressure 102/72 Pulse Oximetry 100 04/20/18 06:00 04/20/18 07:47 04/20/18 08:00 Temperature 94.2 F L 96.2 F L Pulse Rate 95 H 97 H Respiratory Rate 20 18 Blood Pressure 102/72 111/74 Pulse Oximetry 100 98 98 04/20/18 08:03 Temperature 96.2 F L Pulse Rate 97 H Respiratory Rate 18 Blood Pressure 111/74 Pulse Oximetry 98 Intake & Output 04/19/18 04/20/18 04/20/18 18:59 06:59 18:59 Intake Total 610 / 610 Balance 610 / 610 Weight 76.8 kg Intake: IV 610 / 610 Calcium Gluconate Inj 1 GM In 110 / 110 NS Inj 100 ML @ 110 mls/hr IV. SIG ONCE ONE Rx#:[id number]-1/2 NS Inj 500 ML @ Wide 500 / 500 Open IV.SIG .Q0M ONE Rx#: [id number] Other: # Voids 1 Weight On Admission 76.8 kg Narrative: GENERAL: Well-developed, well-nourished, in no acute distress. alert and orientated HEENT: Head is normocephalic without any lesions or masses noted. Facial features are symmetric. Eyes: Pupils equal round reactive to light. Extraocular muscles are intact. Conjunctivae were clear. Oropharyngeal: Pharynx without any erythema edema. Tongue is midline without deviation. Buccal mucosa is moist without any masses or lesions NECK: Supple without any masses. Trachea midline no deviation. No JVD, no bruits are appreciated CARDIAC: Regular rhythm, regular rate. S1/S2 are heard. No murmurs gallops or rubs. LUNGS: Clear to auscultation bilaterally. No wheeze, rhonchi or rales. No use of accessory muscles on inspiration or expiration. ABDOMEN: Soft, nontender. Nondistended. Bowel sounds heard in all 4 quadrants. No organomegaly or masses. Negative rebound, negative guarding EXTREMITIES: 1+ edema in the bilateral lower extremities, pulses are equal bilaterally. No cyanosis or clubbing NEUROLOGY: Mood and affect appear appropriate. Cranial nerves II through XII grossly intact. Muscle strength 5/5 in upper and lower extremities bilaterally. Deep tendon reflexes are 2+ in upper and lower extremities bilaterally. Results - Labs CBC & Chem 7: 04/20/18 00:45 04/20/18 07:10 Labs: Laboratory Results - last 24 hr 04/20/18 04/20/18 04/20/18 00:45 00:45 00:45 CBC w Diff Auto diff final WBC 7.5 RBC 4.42 L Hgb 12.7 L Hct 37.8 L MCV 85.6 MCH 28.7 MCHC 33.5 RDW 16.5 Plt Count 233 MPV 8.5 Neut % (Auto) 67.8 Lymph % (Auto) 20.3 Crenshaw % (Auto) 7.7 Eos % (Auto) 3.3 Baso % (Auto) 0.9 Neut # (Auto) 5.1 Lymph # (Auto) 1.5 Crenshaw # (Auto) 0.6 Eos # (Auto) 0.2 Baso # (Auto) 0.1 WBC Differential . Differential Comment . PT 14.3 H INR 1.4 APTT 28.7 Sodium 129 L Potassium 6.2 H Chloride 99 Carbon Dioxide 22.5 Anion Gap 8 BUN 49 H Creatinine 2.00 H Estimated GFR 34 L POC Glucose Random Glucose 90 Calcium 9.0 Magnesium 2.2 Total Bilirubin 1.3 H AST 104 H ALT 122 H Alkaline Phosphatase 186 H Total Creatine Kinase 96 Troponin I Less than 0.02 L B-Natriuretic Peptide Total Protein 8.9 H Albumin 3.9 Lipase 268 Serum Alcohol Less than 3 04/20/18 04/20/18 04/20/18 00:45 04:00 04:31 CBC w Diff WBC RBC Hgb Hct MCV MCH MCHC RDW Plt Count MPV Neut % (Auto) Lymph % (Auto) Crenshaw % (Auto) Eos % (Auto) Baso % (Auto) Neut # (Auto) Lymph # (Auto) Crenshaw # (Auto) Eos # (Auto) Baso # (Auto) WBC Differential Differential Comment PT INR APTT Sodium Potassium Chloride Carbon Dioxide Anion Gap BUN Creatinine Estimated GFR POC Glucose 83 Random Glucose Calcium Magnesium Total Bilirubin AST ALT Alkaline Phosphatase Total Creatine Kinase 71 Troponin I Less than 0.02 L B-Natriuretic Peptide 288 H Total Protein Albumin Lipase Serum Alcohol 04/20/18 04/20/18 07:10 07:10 CBC w Diff WBC RBC Hgb Hct MCV MCH MCHC RDW Plt Count MPV Neut % (Auto) Lymph % (Auto) Crenshaw % (Auto) Eos % (Auto) Baso % (Auto) Neut # (Auto) Lymph # (Auto) Crenshaw # (Auto) Eos # (Auto) Baso # (Auto) WBC Differential Differential Comment PT INR APTT Sodium 132 L Potassium 5.3 H D Chloride 102 Carbon Dioxide 22.7 Anion Gap 7 BUN 48 H Creatinine 1.90 H Estimated GFR 37 L POC Glucose Random Glucose 79 Calcium 9.0 Magnesium Total Bilirubin AST ALT Alkaline Phosphatase Total Creatine Kinase 69 Troponin I Less than 0.02 L B-Natriuretic Peptide Total Protein Albumin Lipase Serum Alcohol - Imaging Impressions Chest X-Ray 04/20/18 00:26 CONCLUSION: Very small left base pleural effusion. Otherwise negative for acute process. Caprini VTE Risk Assessment Caprini VTE Risk Assessment: Moderate/High Risk (score >= 2) VTE Pharmacological Exception Reason: High risk for bleeding Caprini Risk Assessment Model: Point Value = 1 Point Value = 2 Point Value = 3 Point Value = 5 Age 41-60 Minor surgery BMI > 25 kg/m2 Swollen legs Varicose veins or History of unexplained or recurrent spontaneous Oral contraceptives or hormone replacement Sepsis (< 1 month) Serious lung disease, including pneumonia (< 1 month) Abnormal pulmonary function Acute myocardial infarction Congestive heart failure (< 1 month) History of inflammatory bowel disease Medical patient at bed rest Age 61-74 Arthroscopic surgery Major open surgery (> 45 min) Laparoscopic surgery (> 45 min) Malignancy Confined to bed (> 72 hours) Immobilizing plaster cast Central venous access Age >= 75 History of VTE Family history of VTE Factor V Leiden Prothrombin [id number] Lupus anticoagulant Anticardiolipin antibodies Elevated serum homocysteine Heparin-induced thrombocytopenia Other congenital or acquired thrombophilia Stroke (< 1 month) Elective arthroplasty Hip, pelvis, or leg fracture Acute spinal cord injury (< 1 month) Prophylaxis Regimen: Total Risk Factor Score Risk Level Prophylaxis Regimen 0-1 Low Early ambulation 2 Moderate Order ONE of the following: *Sequential Compression Device (SCD) *Heparin 5000 units SQ BID 3-4 Higher Order ONE of the following medications: *Heparin 5000 units SQ TID *Enoxaparin/Lovenox 40 mg SQ daily (WT < 150 kg, CrCl > 30 mL/min) *Enoxaparin/Lovenox 30 mg SQ daily (WT < 150 kg, CrCl > 10-29 mL/min) *Enoxaparin/Lovenox 30 mg SQ BID (WT < 150 kg, CrCl > 30 mL/min) AND/OR *Sequential Compression Device (SCD) 5 or more Highest Order ONE of the following medications: *Heparin 5000 units SQ TID (Preferred with Epidurals) *Enoxaparin/Lovenox 40 mg SQ daily (WT < 150 kg, CrCl > 30 mL/min) *Enoxaparin/Lovenox 30 mg SQ daily (WT < 150 kg, CrCl > 10-29 mL/min) *Enoxaparin/Lovenox 30 mg SQ BID (WT < 150 kg, CrCl > 30 mL/min) AND *Sequential Compression Device (SCD) Assessment and Plan - Assessment (1) Chest pain Code(s): R07.9 - Chest pain, unspecified Status: Acute (2) Acute renal failure superimposed on stage 3 chronic kidney disease Code(s): N17.9 - Acute kidney failure, unspecified; N18.3 - Chronic kidney disease, stage 3 (moderate) Status: Acute (3) Hyponatremia Code(s): E87.1 - Hypo-osmolality and hyponatremia Status: Acute (4) Hyperkalemia Code(s): E87.5 - Hyperkalemia Status: Acute (5) Elevated liver enzymes Code(s): R74.8 - Abnormal levels of other serum enzymes Status: Acute (6) Hyperbilirubinemia Code(s): E80.6 - Other disorders of bilirubin metabolism Status: Acute - Plan Chest pain -Patient's chest pain is significantly atypical, he is describing it as a sharp stabbing spasm type pain on his left mid axillary area without any associated nausea, vomiting, diaphoresis, radiation -Patient has been ruled out for acute coronary event with serial cardiac enzymes which have remained negative, -EKGs were reviewed which does show no changes in rhythm, however there are increased height and T-wave as compared to previous -We will continue monitor patient's chest pain and see if improved after potassium and sodium are corrected -Continue baclofen, pain control Electrolyte abnormalities with hyperkalemia,Hyponatremia -Multifactorial which could be related to diuresis, cirrhosis, diarrhea -Status post D5, insulin, sodium bicarb, Kayexalate, calcium gluconate -We will discontinue spironolactone -Continue monitor electrolytes Acute liver enzyme elevation -Patient with known history of alcohol abuse, hepatitis C, cirrhosis -Patient's liver enzymes and hyperbilirubinemia worsening/or acutely increased from November until 04/06/18. Unknown etiology -Obtain liver ultrasound -Continue monitor liver enzymes -Obtain acute hepatitis panel -Discontinue statin and avoid hepatotoxic medications Acute renal failure superimposed on chronic kidney disease stage III -Could be secondary to increased diuretic use over the last 2 weeks, could be obstructive in nature to the patient having left-sided mid axillary line pain -Well obtain ultrasound to rule out any obstructive process -We will give 500 cc of IV fluid, followed by Lasix 20 mg IV 1 -Monitor renal functions -Avoid nephrotoxins Hypertension, hyperlipidemia, questionable history of atrial fibrillation, coronary disease -Blood pressure is stable at this time -Statin is being held secondary to liver enzyme elevation -Telemetry is being monitored and indicate sinus rhythm at this time DVT prevention -Sequential compression devices
[2018-04-20 12:14] LABS: Carbon Dioxide 25.1 meq/L (21.0-32.0)
--- NOTE | 2018-04-20 16:50 | US ---
EXAM DATE: 04/20/2018 3:48 PM EDT AGE/SEX: 57 years / Male INDICATIONS: Elevated liver enzymes. Cirrhosis. Acute renal failure. CLINICAL DATA: This is the patient's subsequent encounter. Patient reports that signs and symptoms h ave been present for 2 weeks and indicates a pain score of 10/10. MEDICAL/SURGICAL HISTORY: . CAD. CHF. Cirrhosis. Afib. Hepatitis C. Endocarditis. ETOH. OK. Reynaud's syndrome. . Aortic valve replacement. CABG. Cholecystectomy. COMPARISON: No prior exams available for comparison. MEASUREMENTS: Liver:__ 12.3 cm. Common Bile Duct:___ 3mm. Right Kidney:___11.4 x 4.6 x 5.6 cm. Left Kidney:___10.9 x 4.0 x 5.4 cm. Spleen:___11.3 cm. FINDINGS: Liver: Slightly coarse echotexture. Portal Vein: Pulsatile flow seen in portal vein. Common Duct: No intraluminal mass or stone visualized. Gallbladder: Surgically absent. Pancreas: The visualized portions are within normal limits Right Kidney: Normal echotexture and cortical thickness. No mass or hydronephrosis. Left Kidney: Normal echotexture and cortical thickness. No mass or hydronephrosis. Ascites: Slight ascites is seen. Pleural Effusion: None Spleen: No focal lesion. Aorta: Non aneurysmal. IVC: Within normal limits Other: None. CONCLUSION: 1. Slight ascites. 2. Slightly coarse echotexture of the liver may be due to hepatocellular dysfunction and/or cirrhosi s. Electronically signed by: Karen An MD 04/20/2018 4:48 PM EDT
--- NOTE | 2018-04-20 18:32 | ECHRPT ---
Indication: chest pain CONCLUSIONS The left ventricular systolic function is moderately reduced with an estimated ejection fraction in the range of 40-45%. Mild mitral valve regurgitation. The aortic valve prosthesis is normal to two-dimensional, color flow and Doppler interrogation. Trace aortic valve regurgitation. There is mild to moderate tricuspid valve regurgitation. There is estimated moderate pulmonary hypertension present (range 50-60 mmHg). BP: / HR: Rhythm: MEASUREMENTS (Male / Female) Normal Values Technical Quality: 2D ECHO LV Diastolic Diameter PLAX 4.0 cm 4.2 - 5.9 / 3.9 - 5.3 cm LV Systolic Diameter PLAX 3.4 cm IVS Diastolic Thickness 1.0 cm 0.6 - 1.0 / 0.6 - 0.9 cm LVPW Diastolic Thickness 1.0 cm 0.6 - 1.0 / 0.6 - 0.9 cm LV Relative Wall Thickness 0.5 RV Internal Dim ED PLAX 2.9 cm LVOT Diameter 1.9 cm LA Systolic Diameter LX 5.2 cm 3.0 - 4.0 / 2.7 - 3.8 cm LV Ejection Fraction MOD 4C 43.0 % LV Ejection Fraction 4C AL 43.8 % M-MODE Aortic Root Diameter MM 2.5 cm LA Systolic Diameter MM 5.3 cm LA Ao Ratio MM 2.1 AV Cusp Separation MM 2.2 cm DOPPLER AV Peak Velocity 68.8 cm/s AV Peak Gradient 1.9 mmHg AI Peak Velocity 169.0 cm/s AI Peak Gradient 11.4 mmHg AI Pressure Half Time 1396.0 ms LVOT Peak Velocity 50.3 cm/s LVOT Peak Gradient 1.0 mmHg AV Area Cont Eq pk 2.1 cm MV Area PHT 4.9 cm Mitral E Point Velocity 94.3 cm/s Mitral A Point Velocity 66.1 cm/s Mitral E to A Ratio 1.4 LV E' Lateral Velocity 11.8 cm/s Mitral E to LV E' Lateral Ratio 8.0 LV E' Septal Velocity 8.5 cm/s Mitral E to LV E' Septal Ratio 11.1 TR Peak Velocity 355.0 cm/s TR Peak Gradient 50.4 mmHg Right Atrial Pressure 10.0 mmHg Pulmonary Artery Systolic Pressu 60.4 mmHg Right Ventricular Systolic Press 60.4 mmHg PV Peak Velocity 61.1 cm/s PV Peak Gradient 1.5 mmHg FINDINGS LEFT VENTRICLE The left ventricular systolic function is moderately reduced with an estimated ejection fraction in the range of 40-45%. Moderately dilated left ventricle. No regional wall motion abnormalities are present. Wall thickness is normal. RIGHT VENTRICLE Grossly normal LEFT ATRIUM The left atrial size is moderately dilated. RIGHT ATRIUM The right atrial size is mildly dilated. ATRIAL SEPTUM Normal atrial septal thickness AORTA The aortic root and proximal ascending aorta are normal in size on limited imaging. MITRAL VALVE Mild thickening of the mitral valve leaflets. Mild mitral annular calcification. Mild mitral valve regurgitation. AORTIC VALVE The aortic valve is not well visualized. The aortic valve prosthesis is normal to two-dimensional, color flow and Doppler interrogation. Trace aortic valve regurgitation. TRICUSPID VALVE Structurally normal tricuspid valve. There is mild to moderate tricuspid valve regurgitation. The estimated pulmonary arterial pressure is 60 mmHg. There is estimated moderate pulmonary hypertension present (range 50-60 mmHg). PULMONARY VALVE Trivial pulmonary valve regurgitation. VESSELS The inferior vena cava is normal in size. PERICARDIUM No pericardial effusion. Andry Echevarria DO (Electronically Signed) Final Date:20 April 2018 18:31
--- NOTE | 2018-04-20 19:12 | ECG ---
Date Performed: 04/20/2018 Time Performed: 00:32:56 PTAGE: 57 years EKG: ECTOPIC ATRIAL RHYTHM WITH FIRST DEGREE AV BLOCK MARKED LEFT AXIS DEVIATION LEFT BUNDLE BRA NCH BLOCK ABNORMAL ECG Since PREVIOUS TRACING , no significant change noted PREVIOUS TRACIN12/01/2017 10.38 DOCTOR: Flaquita Worthy Interpretating Date/Time 04/20/2018 19:11:28
[2018-04-20 19:28] LABS: Hepatitis A IgM Antibody Nonreactive (Nonreactive); Hepatitits B Surface Antigen Nonreactive (Nonreactive)
[2018-04-21 04:12] VITALS: O2SAT 95
[2018-04-21] MEDS: Morphine Sulfate Inj 2 MG/ML Vial IV.PUSH PRN ×2 (04:15→08:17)
[2018-04-21 06:34] LABS: Baso % (Auto) 0.6 % (0.0-2.0); Eos # (Auto) 0.2 th/mm3 (0.0-0.4); Eos % (Auto) 4.2 % (0.0-4.0); Hematocrit 33.5 % (39.0-51.0); Lymph # (Auto) 1.1 th/mm3 (1.0-4.8); Lymph % (Auto) 18.9 % (9.0-44.0); Mean Corpuscular HGB Conc 32.9 % (32.0-36.0); Mean Corpuscular Hemoglobin 28.6 pg (27.0-34.0); Mean Corpuscular Volume 86.9 fL (80.0-100.0); Mean Platelet Volume 8.3 fL (7.0-11.0); Mono # (Auto) 0.7 th/mm3 (0.0-0.9); Mono % (Auto) 11.7 % (0.0-8.0); Neut # (Auto) 3.6 th/mm3 (1.8-7.7); Neut % (Auto) 64.6 % (16.0-70.0); Platelet Count 184 th/mm3 (150-450); Red Blood Count 3.86 mil/mm3 (4.50-5.90); Red Cell Distribution Width 16.4 % (11.6-17.2); White Blood Count 5.6 th/mm3 (4.0-11.0)
[2018-04-21 06:37] LABS: Chloride 100 meq/L (98-107); Potassium 4.7 meq/L (3.5-5.1); Sodium 134 meq/L (136-145)
[2018-04-21 06:42] LABS: Calcium 8.5 mg/dL (8.5-10.1)
[2018-04-21 06:43] LABS: Albumin 3.4 g/dL (3.4-5.0); Anion Gap 7 meq/L (5-15); Blood Urea Nitrogen 51 mg/dL (7-18); Carbon Dioxide 27.4 meq/L (21.0-32.0); Glucose,Random 132 mg/dL (74-106)
[2018-04-21 06:46] LABS: Alanine Aminotransferase 91 U/L (12-78); Aspartate Aminotransferase 69 U/L (15-37); Glomerular Filtration Rate 33 mL/min (>89)
[2018-04-21 06:47] LABS: Total Protein 7.8 g/dL (6.4-8.2)
[2018-04-21 06:49] LABS: Alkaline Phosphatase 184 U/L (45-117)
[2018-04-21] MEDS: Propranolol 10 MG Tablet PO SCH (08:17)
[2018-04-21] MEDS: Furosemide 40 MG Tablet PO SCH (08:17)
[2018-04-21] MEDS: Baclofen 10 MG Tablet PO SCH (08:17)
[2018-04-21] MEDS: Senna/Docusate Sodium 8.6/50 MG Tablet PO SCH (08:17)
[2018-04-21] MEDS: Aspirin 325 MG Tablet PO SCH (08:17)
[2018-04-21 08:32] VITALS: RESP 20
--- NOTE | 2018-04-21 08:53 | P.PN ---
Subjective Interval history: 57-year-old male who is seen and examined today in follow-up on chest pain, acute liver enzyme elevation, acute hyperkalemia. Patient is doing much better at this time. I did review laboratory studies, radiological studies with patient and at bedside. They are very pleased that everything is improving at this time. Patient states that he does feel much better and both his and the patient is asking if he can go home today. Patient's vital signs are stable, patient remains afebrile. Physical Exam Vital signs: Vital Signs 04/20/18 09:00 04/20/18 12:00 04/20/18 16:00 Temperature 96.3 F L 96.2 F L 96.3 F L Pulse Rate 98 H 96 H 98 H Respiratory Rate 18 18 18 Blood Pressure 102/67 90/50 L 102/67 Pulse Oximetry 96 96 96 04/20/18 19:52 04/20/18 20:10 04/20/18 22:00 Temperature 96.2 F L Pulse Rate 97 H 100 H Respiratory Rate 18 Blood Pressure 92/61 L Pulse Oximetry 98 96 04/21/18 00:00 04/21/18 04:00 04/21/18 08:00 Temperature 98.2 F 97.4 F L 98.4 F Pulse Rate 105 H 89 105 H Respiratory Rate 18 18 20 Blood Pressure 98/57 L 103/58 L 101/58 L Pulse Oximetry 97 95 95 Intake & Output 04/20/18 04/21/18 04/21/18 18:59 06:59 18:59 Intake Total 600 / 600 200 / 200 Balance 600 / 600 200 / 200 Weight 76.8 kg Intake: IV 0 / 0 NS Inj 1,000 ML @ 84 mls/hr IV. 0 / 0 CONT .[id number] [facility] Rx#: [id number] Oral 600 / 600 200 / 200 Other: # Voids 4 2 Date of Last Bowel Movement 04/20/18 # Bowel Movements 1 0 Narrative: GENERAL: Well-developed, well-nourished, in no acute distress. alert and orientated HEENT: Head is normocephalic without any lesions or masses noted. Facial features are symmetric. Eyes: Extraocular muscles are intact. Conjunctivae were clear. NECK: Supple without any masses. Trachea midline no deviation. No JVD, CARDIAC: Regular rhythm, regular rate. S1/S2 are heard. No murmurs gallops or rubs. LUNGS: Clear to auscultation bilaterally. No wheeze, rhonchi or rales. No use of accessory muscles on inspiration or expiration. ABDOMEN: Soft, nontender. Nondistended. Bowel sounds heard in all 4 quadrants. No organomegaly or masses. Negative rebound, negative guarding EXTREMITIES: No edema, pulses are equal bilaterally. No cyanosis or clubbing NEUROLOGY: Mood and affect appear appropriate. Cranial nerves II through XII grossly intact. Moving all extremities, speech is clear Results - Labs CBC & Chem 7: 04/21/18 05:50 04/21/18 05:45 Laboratory Results - last 24 hr 04/20/18 04/20/18 04/21/18 11:50 11:50 05:45 CBC w Diff WBC RBC Hgb Hct MCV MCH MCHC RDW Plt Count MPV Neut % (Auto) Lymph % (Auto) [place] % (Auto) Eos % (Auto) Baso % (Auto) Neut # (Auto) Lymph # (Auto) [place] # (Auto) Eos # (Auto) Baso # (Auto) WBC Differential Differential Comment Sodium 132 L 134 L Potassium 5.0 4.7 Chloride 101 100 Carbon Dioxide 25.1 27.4 Anion Gap 6 7 BUN 49 H 51 H Creatinine 2.00 H 2.10 H Estimated GFR 34 L 33 L Random Glucose 94 132 H Calcium 9.0 8.5 Total Bilirubin 1.2 H AST 69 H ALT 91 H Alkaline Phosphatase 184 H Total Protein 7.8 D Albumin 3.4 Hepatitis A IgM Ab Nonreactive Hep Bs Antigen Nonreactive Hep B Core IgM Ab Nonreactive Hep C IgG Ab Reactive H 04/21/18 05:50 CBC w Diff Auto diff final WBC 5.6 RBC 3.86 L Hgb 11.0 L Hct 33.5 L MCV 86.9 MCH 28.6 MCHC 32.9 RDW 16.4 Plt Count 184 MPV 8.3 Neut % (Auto) 64.6 Lymph % (Auto) 18.9 [place] % (Auto) 11.7 H Eos % (Auto) 4.2 H Baso % (Auto) 0.6 Neut # (Auto) 3.6 Lymph # (Auto) 1.1 [place] # (Auto) 0.7 Eos # (Auto) 0.2 Baso # (Auto) 0.0 WBC Differential . Differential Comment . Sodium Potassium Chloride Carbon Dioxide Anion Gap BUN Creatinine Estimated GFR Random Glucose Calcium Total Bilirubin AST ALT Alkaline Phosphatase Total Protein Albumin Hepatitis A IgM Ab Hep Bs Antigen Hep B Core IgM Ab Hep C IgG Ab - Imaging Impressions Abdomen Ultrasound 04/20/18 00:00 CONCLUSION: 1. Slight ascites. 2. Slightly coarse echotexture of the liver may be due to hepatocellular dysfunction and/or cirrhosis. Assessment and Plan - Assessment (1) Chest pain Code(s): R07.9 - Chest pain, unspecified Status: Acute (2) Acute renal failure superimposed on stage 3 chronic kidney disease Code(s): N17.9 - Acute kidney failure, unspecified; N18.3 - Chronic kidney disease, stage 3 (moderate) Status: Acute (3) Hyponatremia Code(s): E87.1 - Hypo-osmolality and hyponatremia Status: Acute (4) Hyperkalemia Code(s): E87.5 - Hyperkalemia Status: Resolved (5) Elevated liver enzymes Code(s): R74.8 - Abnormal levels of other serum enzymes Status: Acute (6) Hyperbilirubinemia Code(s): E80.6 - Other disorders of bilirubin metabolism Status: Acute - Plan Chest pain -Patient's chest pain is significantly atypical, he is describing it as a sharp stabbing spasm type pain on his left mid axillary area without any associated nausea, vomiting, diaphoresis, radiation, chest pain has improved after correction of electrolytes -Patient has been ruled out for acute coronary event with serial cardiac enzymes which have remained negative, -EKGs were reviewed which does show no changes in rhythm, however there are increased height and T-wave as compared to previous -Continue baclofen, pain control Electrolyte abnormalities with hyperkalemia,Hyponatremia, improved -Multifactorial which could be related to diuresis, cirrhosis, diarrhea -Status post D5, insulin, sodium bicarb, Kayexalate, calcium gluconate -Discontinued spironolactone -Continue monitor electrolytes Acute liver enzyme elevation, improving -Patient with known history of alcohol abuse, hepatitis C, cirrhosis -Patient's liver enzymes and hyperbilirubinemia worsening/or acutely increased from November until 04/06/18. Unknown etiology -Liver ultrasound does not indicate any acute abnormality, shows hepatocellular disease, slight ascites -Continue monitor liver enzymes -Hepatitis panel only indicating hepatitis C -Discontinued statin and avoid hepatotoxic medications Acute renal failure superimposed on chronic kidney disease stage III -Could be secondary to increased diuretic use over the last 2 weeks -Ultrasound performed which did not indicate any acute abnormality with the kidneys or obstructive process -Status post 500 cc of IV fluid, followed by Lasix 20 mg IV 1 -Monitor renal functions -Avoid nephrotoxins -Patient will need continued follow-up with the [facility] for monitoring of his renal function, will decrease his outpatient diuresis Hypertension, hyperlipidemia, questionable history of atrial fibrillation, coronary disease -Blood pressure is stable at this time -Statin is being held secondary to liver enzyme elevation, resumption should be decided by patient's primary medical doctor at the [facility] -Telemetry was reviewed and patient has remained in sinus rhythm without any changes DVT prevention -Sequential compression devices Discharge Planning: Discharge home in stable condition Activity: Ad renetta. Diet: Healthy heart diet Medication per medication reconciliation Follow-up with primary medical doctor in 1 week
[2018-04-21 13:12] VITALS: BP 89/57; PULSE 76; TEMP 96.9
--- NOTE | 2018-04-21 15:19 | ECG ---
Date Performed: 04/20/2018 Time Performed: 09:44:11 PTAGE: 57 years EKG: ECTOPIC ATRIAL RHYTHM WITH FIRST DEGREE AV BLOCK LEFT BUNDLE BRANCH BLOCK Since previous tr acing, no significant change noted ABNORMAL ECG PREVIOUS TRACING : 04/20/2018 00.32 DOCTOR: Stewart Beauchamp Interpretating Date/Time 04/21/2018 15:18:47
== END 2018-04-21 13:18 | disposition home or self-care (01) ==
LOC: PHED 00:04 → PHEDA 02:42 → PH3 04:19
PROVIDERS: ADMIT Family Medicine; ATTEND Family Medicine
DX: I25.2 Old myocardial infarction; Z79.82 Long term (current) use of aspirin; R07.89 Other chest pain; E87.1 Hypo-osmolality and hyponatremia; R94.5 Abnormal results of liver function studies; K74.60 Unspecified cirrhosis of liver; N18.3 Chronic kidney disease, stage 3 (moderate); F17.210 Nicotine dependence, cigarettes, uncomplicated; Z95.1 Presence of aortocoronary bypass graft; I50.9 Heart failure, unspecified; J44.9 Chronic obstructive pulmonary disease, unspecified; M62.838 Other muscle spasm; I25.10 Atherosclerotic heart disease of native coronary artery without angina pectoris; I73.00 Raynaud's syndrome without gangrene; B19.20 Unspecified viral hepatitis C without hepatic coma; E80.7 Disorder of bilirubin metabolism, unspecified; Z95.2 Presence of prosthetic heart valve; E78.5 Hyperlipidemia, unspecified; N17.9 Acute kidney failure, unspecified; E87.5 Hyperkalemia; Z90.49 Acquired absence of other specified parts of digestive tract

== ENCOUNTER 2018-04-27 17:12 | Observation (INO) ==
--- NOTE | 2018-04-27 18:28 | ED ---
HPI General Chief complaint: Recheck/Abnormal Lab/Rx Stated complaint: high pot/high sodium Time Seen by Provider: 04/27/18 18:19 Source: patient Mode of arrival: ambulatory Limitations: no limitations History of Present Illness HPI narrative: [facility] that his potassium and sodium were abnormal. Patient is not very well aware of all his conditions he seems surprised when I made him aware that he has history of stage III chronic kidney disease as well as elevated liver enzymes and congestive heart failure and endocarditis as part of his medical history that was reviewed on his chart. Patient then stated is that why I am retaining fluid Related Data Home Medications Medication Instructions Recorded Confirmed aspirin 325 mg PO DAILY 04/06/18 04/27/18 nicotine 1 patch TRANSDERMAL DAILY 04/06/18 04/20/18 baclofen 10 mg PO TID 04/20/18 04/27/18 hydroxyzine pamoate 25 mg PO TID-QID PRN 04/20/18 04/27/18 atenolol 25 mg PO DAILY 04/27/18 04/27/18 atorvastatin 10 mg PO DAILY 04/27/18 04/27/18 chlorthalidone 25 mg PO DAILY 04/27/18 04/27/18 Previous Rx's Medication Instructions Recorded furosemide 20 mg PO DAILY #30 ml 04/21/18 Allergies Allergy/AdvReac Type Severity Reaction Status Date / Time erythromycin base Allergy Severe HIVES Verified 04/27/18 17:15 fenoprofen Allergy Severe HIVES Verified 04/27/18 17:15 Review of Systems Except as stated in HPI: all other systems reviewed are negative PMFSH History History Provided By: Patient Medical History Medical History Afib (Acute) CAD (coronary artery disease) (Acute) CHF (congestive heart failure) (Acute) COPD (chronic obstructive pulmonary disease) (Acute) Cirrhosis (Acute) Endocarditis (Acute) H/O: HTN (hypertension) (Acute) Hepatitis C (Acute) History of alcohol use (Acute) Hyperlipemia (Acute) Myocardial infarct (Acute) Raynauds syndrome (Acute) Tobacco abuse (Acute) Surgical History Surgical History H/O: knee surgery (Acute) History of lung surgery (Acute) Previous back surgery (Acute) H/O aortic valve replacement (Acute) History of cholecystectomy (Acute) Hx of CABG (Acute) Family History Family History Father Family history of cancer Mother Family history of diabetes mellitus Mother Family history of breast cancer Social History Social History Substance History: Past History Second Hand Smoke Exposure: Yes Smoking Status: Current every day smoker Tobacco Type: Cigarettes How Often Do You Have a Drink Containing Alcohol: Never Recent Travel in [facility] within the Last 8 Weeks: No Recent Out of Country Travel within the Last 8 Weeks: No Immunization History Tetanus Immunization: <5 Years Hx Influenza Vaccine This Season: Yes Exam Narrative Exam Narrative: GENERAL: Well-nourished, well-developed patient in no apparent distress. SKIN: Warm and dry. HEAD: Atraumatic. Normocephalic. EYES: Pupils equal and round. No scleral icterus. No injection or drainage. ENT: No nasal bleeding or discharge. Mucous membranes pink and moist. NECK: Trachea midline. No JVD. CARDIOVASCULAR: Regular rate and rhythm. no rubs or gallops RESPIRATORY: No accessory muscle use. By basilar crackles noted . Tidal volume equal bilaterally. GASTROINTESTINAL: Abdomen soft, non-tender, nondistended. No rebound or guarding MUSCULOSKELETAL: Extremities without clubbing, cyanosis, or bilateral pitting edema 1+ . No obvious deformities. NEUROLOGICAL: Awake and alert. No obvious cranial nerve deficits. Motor grossly within normal limits. Five out of 5 muscle strength in the arms and legs. Normal speech. PSYCHIATRIC: Appropriate mood and affect; insight and judgment normal. Course Initial Documented Vital Signs Temperature 98 F 04/27/18 17:15 Pulse Rate 89 04/27/18 17:15 Respiratory Rate 16 04/27/18 17:15 Blood Pressure 104/63 04/27/18 17:15 Pulse Oximetry 98 04/27/18 17:15 Last Documented Vital Signs Temperature 96.2 F L 04/27/18 21:46 Pulse Rate 104 H 04/27/18 21:46 Respiratory Rate 20 04/27/18 21:46 Blood Pressure 98/55 L 04/27/18 21:46 Pulse Oximetry 97 04/27/18 21:46 Critical Care Time Critical Care Time: Yes Total Critical Care Time: 30 Attestation: Aggregate critical care time was 30 minutes. Time to perform other separately billable procedures was not included in the critical care time. My time did not include minutes spent treating any other patients simultaneously or on activities that did not directly contribute to the patient's treatment. The services I provided to this patient were to treat and/or prevent clinically significant deterioration that could result in: [Permanent disability and or ] I provided critical care services requiring my management, as noted below: Chart data review, documentation time, medication orders and management, vital sign assessments/reviewing monitor data, ordering and reviewing lab tests, ordering and interpreting/reviewing x-rays and diagnostic studies, care of the patient and discussion of the patient with the admitting physicians. Medical Decision Making MDM Narrative Medical decision making narrative: Patient was admitted on April 20 and had an echocardiogram which was read as negative for pericardial effusion, it does show that the patient has moderately reduced ejection fraction of 40-45% with dilated left ventricle. Patient had hyperkalemia noted of 6.2 which was addressed by treating the patient with D50 and insulin, bicarb, albuterol... Of note the patient had a potassium 6.2 back on April 20 when he was admitted Patient has very similar numbers on his creatinine BUN and GFR as it did when he was admitted earlier on April 06 as well as April 20- is GFR has been 45 but mostly its best April 06 the rest have been between 33 and 37 Further showing the chronicity of this patient's kidney disease The patient was also made aware of the back April 20 the patient what had a hepatitis profile which showed reactive to hepatitis C IgG antibody does show and that the patient has hepatitis C and this may be the cause of his elevation of his liver enzymes Discussed possible admission with Dr. Park from [facility] Medical Records Medical records reviewed: Yes I reviewed the patient's medical records. Lab Data Lab results reviewed: Yes I reviewed the patient's lab results. Result diagrams: 04/27/18 18:30 04/27/18 18:30 Lab Results 04/27/18 04/27/18 Range/Units 18:30 18:30 CBC w Diff Auto diff final WBC 5.6 (4.0-11.0) th/mm3 RBC 3.98 L (4.50-5.90) mil/mm3 Hgb 11.5 L (13.0-17.0) gm/dL Hct 34.8 L (39.0-51.0) % MCV 87.5 (80.0-100.0) fL MCH 28.9 (27.0-34.0) pg MCHC 33.0 (32.0-36.0) % RDW 16.5 (11.6-17.2) % Plt Count 194 (150-450) th/mm3 MPV 8.3 (7.0-11.0) fL Neut % (Auto) 58.9 (16.0-70.0) % Lymph % (Auto) 21.9 (9.0-44.0) % [place] % (Auto) 11.7 H (0.0-8.0) % Eos % (Auto) 5.0 H (0.0-4.0) % Baso % (Auto) 2.5 H (0.0-2.0) % Neut # (Auto) 3.3 (1.8-7.7) th/mm3 Lymph # (Auto) 1.2 (1.0-4.8) th/mm3 [place] # (Auto) 0.7 (0.0-0.9) th/mm3 Eos # (Auto) 0.3 (0.0-0.4) th/mm3 Baso # (Auto) 0.1 (0.0-0.2) th/mm3 WBC Differential . Differential Comment . Sodium 132 L (136-145) meq/L Potassium 6.2 H (3.5-5.1) meq/L Chloride 100 (98-107) meq/L Carbon Dioxide 27.5 (21.0-32.0) meq/L Anion Gap 5 (5-15) meq/L BUN 45 H (7-18) mg/dL Creatinine 1.90 H (0.60-1.30) mg/dL Estimated GFR 36 L (>89) mL/min Random Glucose 76 (74-106) mg/dL Calcium 8.6 (8.5-10.1) mg/dL Phosphorus 4.5 (2.5-4.9) mg/dL Magnesium 2.6 H (1.5-2.5) mg/dL Total Bilirubin 1.1 H (0.2-1.0) mg/dL AST 39 H (15-37) U/L ALT 44 (12-78) U/L Alkaline Phosphatase 160 H (45-117) U/L Total Protein 8.0 (6.4-8.2) g/dL Albumin 3.5 (3.4-5.0) g/dL Imaging Data Attestation: I personally reviewed and interpreted this imaging study as follows : Radiologist's impression: Chest X-Ray 04/27/18 20:46 CONCLUSION: No acute abnormality is seen. Discharge Plan Discharge Disposition Patient Disposition: 30 Still Patient Discharge Condition Condition: Stable Discharge Details Diagnosis: Acute hypotension, Acute hyperkalemia Physicians Team ED Provider: Oliver Olvera Attending Provider: Loretta Park Discharge Interventions Interventions: ED Discharge Assessment Last Done: 04/27/18 21:28 Status ED Status: Left Department Discharge Information Discharge Date/Time: 04/27/18 21:35
[2018-04-27 18:48] LABS: Baso # (Auto) 0.1 th/mm3 (0.0-0.2); Baso % (Auto) 2.5 % (0.0-2.0); Eos # (Auto) 0.3 th/mm3 (0.0-0.4); Hematocrit 34.8 % (39.0-51.0); Hemoglobin 11.5 gm/dL (13.0-17.0); Lymph # (Auto) 1.2 th/mm3 (1.0-4.8); Lymph % (Auto) 21.9 % (9.0-44.0); Mean Corpuscular Hemoglobin 28.9 pg (27.0-34.0); Mean Corpuscular Volume 87.5 fL (80.0-100.0); Mean Platelet Volume 8.3 fL (7.0-11.0); Mono # (Auto) 0.7 th/mm3 (0.0-0.9); Mono % (Auto) 11.7 % (0.0-8.0); Neut # (Auto) 3.3 th/mm3 (1.8-7.7); Neut % (Auto) 58.9 % (16.0-70.0); Platelet Count 194 th/mm3 (150-450); Red Blood Count 3.98 mil/mm3 (4.50-5.90); Red Cell Distribution Width 16.5 % (11.6-17.2); White Blood Count 5.6 th/mm3 (4.0-11.0)
[2018-04-27 18:55] LABS: Chloride 100 meq/L (98-107); Potassium 6.2 meq/L (3.5-5.1); Sodium 132 meq/L (136-145)
[2018-04-27 19:00] LABS: Calcium 8.6 mg/dL (8.5-10.1)
[2018-04-27 19:01] LABS: Albumin 3.5 g/dL (3.4-5.0); Anion Gap 5 meq/L (5-15); Blood Urea Nitrogen 45 mg/dL (7-18); Carbon Dioxide 27.5 meq/L (21.0-32.0); Glucose,Random 76 mg/dL (74-106); Magnesium 2.6 mg/dL (1.5-2.5)
[2018-04-27 19:04] LABS: Alanine Aminotransferase 44 U/L (12-78); Aspartate Aminotransferase 39 U/L (15-37); Glomerular Filtration Rate 36 mL/min (>89); Phosphorus 4.5 mg/dL (2.5-4.9)
[2018-04-27 19:07] LABS: Alkaline Phosphatase 160 U/L (45-117)
[2018-04-27] MEDS ORDERED: RESP: Albuterol Concentrated 2.5 MG/0.5 ML Neb NEB ONE (19:16)
[2018-04-27] MEDS ORDERED: Dextrose 50% in Water 50 ML Vial IV.PUSH ONE (19:16)
[2018-04-27] MEDS ORDERED: Sodium Chlor 0.9% Inj 500 ML IV.SIG ONE (20:46)
[2018-04-27] MEDS ORDERED: Acetaminophen 325 MG Tablet PO PRN (20:50)
[2018-04-27] MEDS ORDERED: Bisacodyl 10 MG Supp RECTAL PRN (20:50)
[2018-04-27] MEDS ORDERED: Sodium Polystyrene Sulfonate/Sorbitol Liq 15 GM/60 ML UDC PO ONE (21:15)
--- NOTE | 2018-04-27 21:15 | XR ---
EXAM DATE: 04/27/2018 9:04 PM EDT AGE/SEX: 58 years / Male INDICATIONS: Chest pain for 1 week CLINICAL DATA: This is the patient's initial encounter. Patient reports that signs and symptoms have been present for 1 week and indicates a pain score of 8/10. MEDICAL/SURGICAL HISTORY: . Atrial fibrillation. Ulcerative colitis. . CABG. Aortic valve repl acement COMPARISON: [facility], CHEST 1V SINGLE AP, 04/20/2018. . FINDINGS: The patient is status post sternotomy. The heart size is upper limits of normal for size. The lungs a re grossly clear. No effusion is seen. There is an anterior cervical fusion plate present. CONCLUSION: No acute abnormality is seen. Electronically signed by: Sivakumar Richards MD 04/27/2018 9:13 PM EDT
[2018-04-27] MEDS ORDERED: Calcium Gluconate Inj 1 GM in Sodium Chlor 0.9% Inj 100 ML IV.SIG ONE (22:00)
[2018-04-27] MEDS: Temazepam 15 MG Capsule PO PRN (22:48)
[2018-04-27] MEDS: Senna/Docusate Sodium 8.6/50 MG Tablet PO SCH (22:49)
[2018-04-28] MEDS: Sod Chloride 0.9% Inj 1,000 ML IV.CONT SCH ×3 (01:24→18:41)
[2018-04-28 07:59] LABS: Baso % (Auto) 0.7 % (0.0-2.0); Eos # (Auto) 0.2 th/mm3 (0.0-0.4); Eos % (Auto) 3.6 % (0.0-4.0); Hematocrit 34.7 % (39.0-51.0); Hemoglobin 11.3 gm/dL (13.0-17.0); Lymph # (Auto) 1.1 th/mm3 (1.0-4.8); Lymph % (Auto) 21.2 % (9.0-44.0); Mean Corpuscular HGB Conc 32.6 % (32.0-36.0); Mean Corpuscular Hemoglobin 29.1 pg (27.0-34.0); Mean Corpuscular Volume 89.1 fL (80.0-100.0); Mean Platelet Volume 8.4 fL (7.0-11.0); Mono # (Auto) 0.8 th/mm3 (0.0-0.9); Mono % (Auto) 16.8 % (0.0-8.0); Neut % (Auto) 57.7 % (16.0-70.0); Platelet Count 161 th/mm3 (150-450); Red Cell Distribution Width 16.8 % (11.6-17.2); White Blood Count 5.1 th/mm3 (4.0-11.0)
[2018-04-28 08:06] LABS: Chloride 101 meq/L (98-107); Potassium 4.7 meq/L (3.5-5.1); Sodium 135 meq/L (136-145)
[2018-04-28] MEDS: Aspirin 325 MG Tablet PO SCH (08:11)
[2018-04-28] MEDS: Senna/Docusate Sodium 8.6/50 MG Tablet PO SCH ×2 (08:11→20:27)
[2018-04-28 08:13] LABS: Calcium 8.6 mg/dL (8.5-10.1)
[2018-04-28 08:14] LABS: Albumin 3.3 g/dL (3.4-5.0); Anion Gap 8 meq/L (5-15); Blood Urea Nitrogen 40 mg/dL (7-18); Carbon Dioxide 26.1 meq/L (21.0-32.0); Glucose,Random 97 mg/dL (74-106)
[2018-04-28 08:17] LABS: Alanine Aminotransferase 39 U/L (12-78); Aspartate Aminotransferase 34 U/L (15-37); Glomerular Filtration Rate 44 mL/min (>89)
[2018-04-28 08:19] LABS: Total Protein 7.5 g/dL (6.4-8.2)
[2018-04-28 08:20] LABS: Alkaline Phosphatase 147 U/L (45-117)
--- NOTE | 2018-04-28 08:35 | P.HP ---
History of Present Illness Primary Care Physician: Physician [facility] Chief Complaint: Abnormal labs History of Present Illness: This is a 57-year-old male with rather extensive history, coronary disease, congestive heart failure, history of atrial fibrillation, history of alcohol abuse, cirrhosis, hepatitis C who presented to the hospital with abnormal lab values as well as symptoms of fatigue, muscle aches, weakness, nausea and vomiting. Patient was recently discharged home on 04/21/18, at that time was treated for acute kidney injury, chest pain and electrolyte abnormalities. Patient improved and was discharged home. Patient states he left the hospital and since then his symptoms have continued. [facility], with no changes to his medicines and continued on regimen. Lab work was done at that time and he was called to return again to the ED for hyperkalemia and VITO. Upon assessment today patient is lying in bed comfortably in no apparent distress. Patient denies any abdominal pain, nausea or vomiting at this time. He denies any chest pain or shortness of breath. Review of Systems All other systems reviewed negative except as stated in HPI PMFSH - History History Provided By: Patient - Medical History Medical History: Medical History (Last Reviewed 04/27/18 @ 19:41 by Oliver Olvera) Afib CAD (coronary artery disease) CHF (congestive heart failure) COPD (chronic obstructive pulmonary disease) Cirrhosis Endocarditis H/O: HTN (hypertension) Hepatitis C History of alcohol use Hyperlipemia Myocardial infarct Raynauds syndrome Tobacco abuse - Surgical History Surgical History: Surgical History (Last Reviewed 04/27/18 @ 19:41 by Oliver Olvera) H/O: knee surgery History of lung surgery Previous back surgery H/O aortic valve replacement History of cholecystectomy Hx of CABG - Family History Family History: Family History (Last Reviewed 04/27/18 @ 19:41 by Oliver Olvera) Father Family history of cancer Mother Family history of diabetes mellitus Mother Family history of breast cancer - Tobacco History Second Hand Smoke Exposure: Yes Tobacco Use In Past 30 Days: Yes Smoking Status: Current every day smoker Tobacco Type: Cigarettes - Alcohol History How Often Do You Have a Drink Containing Alcohol: Never - Substance Use History Substance History: Past History - Travel History Recent Travel in the [place] Within the Last 8 Weeks: No Recent Travel Out of the Country Within the Last 8 Weeks: No - Immunization History Tetanus Immunization: <5 Years Hx Influenza Vaccine This Season: Yes Medications and Allergies Active Medications: Active Medications Acetaminophen (Tylenol) 650 mg PO Q4H PRN PRN Reason: Temp > 100.4 Aspirin (Aspirin) 325 mg PO DAILY [facility] Last Admin: 04/28/18 08:11 Dose: 325 mg Atorvastatin Calcium (Lipitor) 10 mg PO DAILY [facility] Last Admin: 04/28/18 08:12 Dose: 10 mg Bisacodyl (Dulcolax Supp) 10 mg RECTAL DAILY PRN PRN Reason: SEVERE CONSITIPATION Sodium Chloride (Ns Inj) 1,000 mls @ 100 mls/hr IV.CONT .Q10H [facility] Last Admin: 04/28/18 01:24 Dose: 100 mls/hr Lactulose (Lactulose Liq) 30 ml PO DAILY PRN PRN Reason: SEVERE CONSITIPATION Ondansetron HCl (Zofran Inj) 4 mg IV.PUSH Q6H PRN PRN Reason: NAUSEA OR VOMITING Senna/Docusate Sodium (Dolly-Colace) 1 tab PO BID [facility] Last Admin: 04/28/18 08:11 Dose: 1 tab Sennosides (Senokot) 17.2 mg PO Q12HR PRN PRN Reason: Moderate Constipation Sodium Chloride (Ns Flush) 2 ml IV.FLUSH PRN PRN PRN Reason: FLUSH AFTER USING IV ACCESS Temazepam (Restoril) 15 mg PO HS PRN PRN Reason: INSOMNIA Last Admin: 04/27/18 22:48 Dose: 15 mg Allergies Allergy/AdvReac Type Severity Reaction Status Date / Time erythromycin base Allergy Severe HIVES Verified 04/27/18 17:15 fenoprofen Allergy Severe HIVES Verified 04/27/18 17:15 Home Medications Medication Instructions Recorded Confirmed Type aspirin 325 mg PO DAILY 04/06/18 04/27/18 History nicotine 1 patch TRANSDERMAL DAILY 04/06/18 04/20/18 History baclofen 10 mg PO TID 04/20/18 04/27/18 History hydroxyzine pamoate 25 mg PO TID-QID PRN 04/20/18 04/27/18 History atenolol 25 mg PO DAILY 04/27/18 04/27/18 History atorvastatin 10 mg PO DAILY 04/27/18 04/27/18 History chlorthalidone 25 mg PO DAILY 04/27/18 04/27/18 History Exam Vital signs: Vital Signs 04/27/18 17:15 04/27/18 18:20 04/27/18 18:25 Temperature 98 F Pulse Rate 89 92 H Respiratory Rate 16 18 Blood Pressure 104/63 96/63 L Pulse Oximetry 98 98 98 04/27/18 19:00 04/27/18 19:15 04/27/18 19:45 Temperature Pulse Rate 90 92 H 88 Respiratory Rate 18 18 18 Blood Pressure 89/77 L 94/61 L 93/61 L Pulse Oximetry 99 97 97 04/27/18 20:05 04/27/18 20:21 04/27/18 20:23 Temperature Pulse Rate 88 89 Respiratory Rate 18 22 Blood Pressure 82/60 L 86/63 L Pulse Oximetry 97 96 04/27/18 20:35 04/27/18 20:50 04/27/18 21:23 Temperature Pulse Rate 89 82 99 H Respiratory Rate 22 22 Blood Pressure 112/71 Pulse Oximetry 04/27/18 21:46 04/28/18 04:00 04/28/18 07:34 Temperature 96.2 F L 93.6 F L 96.8 F L Pulse Rate 104 H 97 H 99 H Respiratory Rate 20 20 20 Blood Pressure 98/55 L 106/73 108/63 Pulse Oximetry 97 97 98 Intake & Output 04/27/18 04/28/18 04/28/18 18:59 06:59 18:59 Intake Total 610 / 610 Balance 610 / 610 Weight 80.2 kg 85.4 kg Intake: IV 610 / 610 Calcium Gluconate Inj 1 GM In 110 / 110 NS Inj 100 ML @ 110 mls/hr IV. SIG ONCE ONE Rx#:[id number] NS Inj 500 ML @ Wide Open IV. 500 / 500 SIG BOLUS ONE Rx#:[id number] Oral 0 / 0 Other: # Voids 2 Weight On Admission 85.9 kg Narrative: GENERAL: Well-developed, well-nourished patient in [facility]. SKIN: Warm and dry. No rash. HEAD: Normocephalic. Atraumatic. EYES: Pupils equal and round. No scleral icterus. No injection or drainage. ENT: No nasal bleeding or discharge. Mucous membranes pink and moist. NECK: Supple. Trachea midline. CARDIOVASCULAR: Regular rate and rhythm. S1, S2 noted. No murmur appreciated. RESPIRATORY: No accessory muscle use. Clear to auscultation. Breath sounds equal bilaterally. GASTROINTESTINAL: Abdomen soft, round, nontender. Normoactive bowel sounds x4. MUSCULOSKELETAL: No obvious deformities. Extremities without clubbing, cyanosis , or edema. NEUROLOGICAL: Awake and alert. No obvious cranial nerve deficits. Motor grossly within normal limits. 5/5 muscle strength in bilateral upper and lower extremities. Normal speech. PSYCHIATRIC: Appropriate mood and affect; insight and judgment normal. Results - Labs CBC & Chem 7: 04/28/18 06:50 04/28/18 06:50 Labs: Laboratory Results - last 24 hr 04/27/18 04/27/18 04/28/18 18:30 18:30 01:00 CBC w Diff Auto diff final WBC 5.6 RBC 3.98 L Hgb 11.5 L Hct 34.8 L MCV 87.5 MCH 28.9 MCHC 33.0 RDW 16.5 Plt Count 194 MPV 8.3 Neut % (Auto) 58.9 Lymph % (Auto) 21.9 [place] % (Auto) 11.7 H Eos % (Auto) 5.0 H Baso % (Auto) 2.5 H Neut # (Auto) 3.3 Lymph # (Auto) 1.2 [place] # (Auto) 0.7 Eos # (Auto) 0.3 Baso # (Auto) 0.1 WBC Differential . Differential Comment . Sodium 132 L Potassium 6.2 H 4.5 D Chloride 100 Carbon Dioxide 27.5 Anion Gap 5 BUN 45 H Creatinine 1.90 H Estimated GFR 36 L Random Glucose 76 Calcium 8.6 Phosphorus 4.5 Magnesium 2.6 H Total Bilirubin 1.1 H AST 39 H ALT 44 Alkaline Phosphatase 160 H Troponin I Total Protein 8.0 Albumin 3.5 04/28/18 04/28/18 04/28/18 01:12 06:50 06:50 CBC w Diff Auto diff final WBC 5.1 RBC 3.90 L Hgb 11.3 L Hct 34.7 L MCV 89.1 MCH 29.1 MCHC 32.6 RDW 16.8 Plt Count 161 MPV 8.4 Neut % (Auto) 57.7 Lymph % (Auto) 21.2 [place] % (Auto) 16.8 H Eos % (Auto) 3.6 Baso % (Auto) 0.7 Neut # (Auto) 3.0 Lymph # (Auto) 1.1 [place] # (Auto) 0.8 Eos # (Auto) 0.2 Baso # (Auto) 0.0 WBC Differential . Differential Comment . Sodium 135 L Potassium 4.7 Chloride 101 Carbon Dioxide 26.1 Anion Gap 8 BUN 40 H Creatinine 1.60 H Estimated GFR 44 L Random Glucose 97 Calcium 8.6 Phosphorus Magnesium Total Bilirubin 1.1 H AST 34 ALT 39 Alkaline Phosphatase 147 H Troponin I Less than 0.02 L Total Protein 7.5 Albumin 3.3 L 04/28/18 06:50 CBC w Diff WBC RBC Hgb Hct MCV MCH MCHC RDW Plt Count MPV Neut % (Auto) Lymph % (Auto) [place] % (Auto) Eos % (Auto) Baso % (Auto) Neut # (Auto) Lymph # (Auto) [place] # (Auto) Eos # (Auto) Baso # (Auto) WBC Differential Differential Comment Sodium Potassium Chloride Carbon Dioxide Anion Gap BUN Creatinine Estimated GFR Random Glucose Calcium Phosphorus Magnesium Total Bilirubin AST ALT Alkaline Phosphatase Troponin I Less than 0.02 L Total Protein Albumin - Imaging Impressions Chest X-Ray 04/27/18 20:46 CONCLUSION: No acute abnormality is seen. Caprini VTE Risk Assessment Caprini VTE Risk Assessment: No/Low Risk (score <= 1) Caprini Risk Assessment Model: Point Value = 1 Point Value = 2 Point Value = 3 Point Value = 5 Age 41-60 Minor surgery BMI > 25 kg/m2 Swollen legs Varicose veins or History of unexplained or recurrent spontaneous Oral contraceptives or hormone replacement Sepsis (< 1 month) Serious lung disease, including pneumonia (< 1 month) Abnormal pulmonary function Acute myocardial infarction Congestive heart failure (< 1 month) History of inflammatory bowel disease Medical patient at bed rest Age 61-74 Arthroscopic surgery Major open surgery (> 45 min) Laparoscopic surgery (> 45 min) Malignancy Confined to bed (> 72 hours) Immobilizing plaster cast Central venous access Age >= 75 History of VTE Family history of VTE Factor V Leiden Prothrombin [id number] Lupus anticoagulant Anticardiolipin antibodies Elevated serum homocysteine Heparin-induced thrombocytopenia Other congenital or acquired thrombophilia Stroke (< 1 month) Elective arthroplasty Hip, pelvis, or leg fracture Acute spinal cord injury (< 1 month) Prophylaxis Regimen: Total Risk Factor Score Risk Level Prophylaxis Regimen 0-1 Low Early ambulation 2 Moderate Order ONE of the following: *Sequential Compression Device (SCD) *Heparin 5000 units SQ BID 3-4 Higher Order ONE of the following medications: *Heparin 5000 units SQ TID *Enoxaparin/Lovenox 40 mg SQ daily (WT < 150 kg, CrCl > 30 mL/min) *Enoxaparin/Lovenox 30 mg SQ daily (WT < 150 kg, CrCl > 10-29 mL/min) *Enoxaparin/Lovenox 30 mg SQ BID (WT < 150 kg, CrCl > 30 mL/min) AND/OR *Sequential Compression Device (SCD) 5 or more Highest Order ONE of the following medications: *Heparin 5000 units SQ TID (Preferred with Epidurals) *Enoxaparin/Lovenox 40 mg SQ daily (WT < 150 kg, CrCl > 30 mL/min) *Enoxaparin/Lovenox 30 mg SQ daily (WT < 150 kg, CrCl > 10-29 mL/min) *Enoxaparin/Lovenox 30 mg SQ BID (WT < 150 kg, CrCl > 30 mL/min) AND *Sequential Compression Device (SCD) Assessment and Plan - Plan Electrolyte abnormalities with hyperkalemia -Multifactorial which could be related to diuresis, cirrhosis, diarrhea -Status post D5, insulin, sodium bicarb, Kayexalate, calcium gluconate -Has improved from 6.2 to 4.5 but increased to 4.7 today. Will continue to monitor electrolytes. -Added aldosterone, magnesium, serum os to labs. Follow. -Patient will likely need outpatient follow up with nephrology to manage. Acute renal failure superimposed on chronic kidney disease stage III -Creatinine 1.6. Actually has improved after reviewing previous lab work. -Monitor renal functions -Avoid nephrotoxins Hypertension, hyperlipidemia, questionable history of atrial fibrillation, coronary disease -Blood pressure is stable at this time -Telemetry is being monitored and indicates sinus rhythm at this time. DVT prevention -Sequential compression devices
[2018-04-28 14:25] LABS: Magnesium 2.1 mg/dL (1.5-2.5)
[2018-04-28 14:39] LABS: Thyroid Stimulating Hormone 1.56 uIU/mL (0.358-3.740)
--- NOTE | 2018-04-28 17:11 | ECG ---
Date Performed: 04/27/2018 Time Performed: 17:30:10 PTAGE: 58 years EKG: Sinus rhythm LEFT BUNDLE BRANCH BLOCK ABNORMAL ECG PREVIOUS TRACING : 04/20/2018 09.44 DOCTOR: Thaddeus Azar Interpretating Date/Time 04/28/2018 17:10:24
[2018-04-28] MEDS: Temazepam 15 MG Capsule PO PRN (20:42)
[2018-04-29] MEDS: Sod Chloride 0.9% Inj 1,000 ML IV.CONT SCH (04:48)
--- NOTE | 2018-04-29 07:39 | P.PN ---
Subjective Interval history: Follow-up hyperkalemia. Patient seen and examined, lying in bed eating breakfast. He does state that he has continued chronic lower extremity nerve pain. Patient is eating well with no nausea or vomiting. No abdominal pain. Patient states he does feel improved and ready to go home. Lab work improved today. It was advised that patient will follow up with the platinum [facility] palladium kettle tender [facility] the [place] for outpatient management. Physical Exam Vital signs: Vital Signs 04/28/18 08:00 04/28/18 11:03 04/28/18 14:58 Temperature 97.2 F L 97 F L Pulse Rate 91 H 102 H 100 H Respiratory Rate 20 20 Blood Pressure 100/61 104/60 Pulse Oximetry 98 98 04/28/18 20:00 04/29/18 00:00 04/29/18 07:17 Temperature 97.1 F L 97.7 F 97.3 F L Pulse Rate 101 H 106 H 100 H Respiratory Rate 21 20 20 Blood Pressure 108/57 L 90/57 L 101/70 Pulse Oximetry 97 95 97 Intake & Output 04/28/18 04/29/18 04/29/18 18:59 06:59 18:59 Intake Total 1979 1120 / 1120 Balance 1979 1120 / 1120 Weight 85.7 kg Intake: IV 1000 / 1000 1000 / 1000 NS Inj 1,000 ML @ 100 mls/hr IV 1000 / 1000 1000 / 1000 .CONT .Q10H SHALINI Rx#:[id number] Oral 980 / 980 120 / 120 Other: # Voids 4 Narrative: GENERAL: Well-developed, well-nourished patient in [facility]. SKIN: Warm and dry. No rash. HEAD: Normocephalic. Atraumatic. EYES: Pupils equal and round. No scleral icterus. No injection or drainage. ENT: No nasal bleeding or discharge. Mucous membranes pink and moist. NECK: Supple. Trachea midline. CARDIOVASCULAR: Regular rate and rhythm. S1, S2 noted. RESPIRATORY: No accessory muscle use. Clear to auscultation. Breath sounds equal bilaterally. GASTROINTESTINAL: Abdomen soft, non-tender, nondistended. Normoactive bowel sounds x4. MUSCULOSKELETAL: No obvious deformities. Extremities without clubbing or edema. Bilateral lower extremity PVD. NEUROLOGICAL: Awake and alert. No obvious cranial nerve deficits. Motor grossly within normal limits. 5/5 muscle strength in bilateral upper and lower extremities. Normal speech. PSYCHIATRIC: Appropriate mood and affect; insight and judgment normal. Results - Labs CBC & Chem 7: 04/28/18 06:50 04/29/18 06:45 Laboratory Results - last 24 hr 04/28/18 04/28/18 04/28/18 06:50 06:50 06:50 CBC w Diff Auto diff final WBC 5.1 RBC 3.90 L Hgb 11.3 L Hct 34.7 L MCV 89.1 MCH 29.1 MCHC 32.6 RDW 16.8 Plt Count 161 MPV 8.4 Neut % (Auto) 57.7 Lymph % (Auto) 21.2 [place] % (Auto) 16.8 H Eos % (Auto) 3.6 Baso % (Auto) 0.7 Neut # (Auto) 3.0 Lymph # (Auto) 1.1 [place] # (Auto) 0.8 Eos # (Auto) 0.2 Baso # (Auto) 0.0 WBC Differential . Differential Comment . Sodium 135 L Potassium 4.7 Chloride 101 Carbon Dioxide 26.1 Anion Gap 8 BUN 40 H Creatinine 1.60 H Estimated GFR 44 L Random Glucose 97 Osmolality Calcium 8.6 Magnesium Total Bilirubin 1.1 H AST 34 ALT 39 Alkaline Phosphatase 147 H Troponin I Less than 0.02 L Total Protein 7.5 Albumin 3.3 L TSH Urine Osmolality Ur Random Potassium 04/28/18 04/28/18 04/28/18 13:40 13:40 15:40 CBC w Diff WBC RBC Hgb Hct MCV MCH MCHC RDW Plt Count MPV Neut % (Auto) Lymph % (Auto) [place] % (Auto) Eos % (Auto) Baso % (Auto) Neut # (Auto) Lymph # (Auto) [place] # (Auto) Eos # (Auto) Baso # (Auto) WBC Differential Differential Comment Sodium Potassium Chloride Carbon Dioxide Anion Gap BUN Creatinine Estimated GFR Random Glucose Osmolality 296 H Calcium Magnesium 2.1 Total Bilirubin AST ALT Alkaline Phosphatase Troponin I Total Protein Albumin TSH 1.560 Urine Osmolality Ur Random Potassium 57 04/28/18 15:40 CBC w Diff WBC RBC Hgb Hct MCV MCH MCHC RDW Plt Count MPV Neut % (Auto) Lymph % (Auto) [place] % (Auto) Eos % (Auto) Baso % (Auto) Neut # (Auto) Lymph # (Auto) [place] # (Auto) Eos # (Auto) Baso # (Auto) WBC Differential Differential Comment Sodium Potassium Chloride Carbon Dioxide Anion Gap BUN Creatinine Estimated GFR Random Glucose Osmolality Calcium Magnesium Total Bilirubin AST ALT Alkaline Phosphatase Troponin I Total Protein Albumin TSH Urine Osmolality 570 Ur Random Potassium Assessment and Plan - Plan This is a 58-year-old male patient with: Electrolyte abnormalities with hyperkalemia -Multifactorial which could be related to diuresis, cirrhosis -Status post D5, insulin, sodium bicarb, Kayexalate, calcium gluconate -Has improved from 6.2 to 4.5. Magnesium normal. Serum os mildly elevated although within normal limits. -Encouraged patient to follow up outpatient with nephrology to further investigate reason for electrolyte abnormalities. -Electrolytes have improved today. Acute renal failure superimposed on chronic kidney disease stage III -Actually has improved after reviewing previous lab work. -Avoid nephrotoxins. Hypertension, hyperlipidemia, questionable history of atrial fibrillation, coronary disease -Blood pressure is stable at this time -Telemetry is being monitored and indicates sinus rhythm at this time. No acute arrhythmias overnight. DVT prevention -Sequential compression devices Discharge Planning: DC home today. Heart healthy diet. Activity as tolerated. Prescriptions per discharge plan. [facility]
[2018-04-29 07:41] LABS: Potassium 4.5 meq/L (3.5-5.1)
[2018-04-29 07:44] LABS: Calcium 7.8 mg/dL (8.5-10.1); Carbon Dioxide 22.5 meq/L (21.0-32.0)
[2018-04-29] MEDS: Aspirin 325 MG Tablet PO SCH (08:07)
[2018-04-29] MEDS: Senna/Docusate Sodium 8.6/50 MG Tablet PO SCH (08:07)
== END 2018-04-29 09:21 | disposition home or self-care (01) ==
LOC: PHED 17:12 → PHEDA 17:12 → PH3 17:12
PROVIDERS: ADMIT Hospitalist; ATTEND Hospitalist

== ENCOUNTER 2018-05-29 16:32 | Inpatient (IN) ==
--- NOTE | 2018-05-29 17:20 | ED ---
HPI General Chief complaint: Pain: Chronic Stated complaint: Joint pain/weak x1week Source: patient Mode of arrival: ambulatory Limitations: no limitations History of Present Illness HPI narrative: 58yo M with PMH of aortic valve replacement not on anticoagulation, cirrhosis, hepatitis on Harvoni here because he had routine blood work done from [place] and they said he had elevated potassium and low sodium. He was told to come to the ED. Pt has chronic lower extremity joint pains for at least a month and took his friend's morphine today. Denies any fever, chest pain, sob, n/v, abdominal pain, focal weakness or numbness. Pt had recently fallen 05/23 and was in the ED and had negative CT a/p. Pt is on the list for liver transplant. He has quit alcohol for months. Related Data Home Medications Medication Instructions Recorded Confirmed aspirin 325 mg PO DAILY 04/06/18 05/29/18 atenolol 50 mg PO DAILY 04/27/18 05/29/18 furosemide [Lasix] 40 mg PO DAILY 05/01/18 05/29/18 ledipasvir-sofosbuvir [Harvoni] 1 tab PO QAM 05/23/18 05/29/18 Previous Rx's Medication Instructions Recorded tramadol [Ultram] 50 mg PO Q6H #6 tab 05/24/18 Allergies Allergy/AdvReac Type Severity Reaction Status Date / Time erythromycin base Allergy Severe HIVES Verified 05/29/18 16:34 fenoprofen Allergy Severe HIVES Verified 05/29/18 16:34 Review of Systems ROS: all other systems reviewed are negative [facility] Medical History Medical History Cirrhosis (Acute) CAD (coronary artery disease) (Acute) Afib (Acute) Hyperlipemia (Acute) H/O: HTN (hypertension) (Acute) COPD (chronic obstructive pulmonary disease) (Acute) Hepatitis C (Acute) Myocardial infarct (Acute) Chest pain (Acute) CHF (congestive heart failure) (Acute) Endocarditis (Acute) History of alcohol use (Acute) Raynauds syndrome (Acute) Tobacco abuse (Acute) Surgical History Surgical History H/O aortic valve replacement (Acute) History of cholecystectomy (Acute) H/O: knee surgery (Acute) History of lung surgery (Acute) Hx of CABG (Acute) Previous back surgery (Acute) Social History Social History Substance History: Past History Second Hand Smoke Exposure: Yes Smoking Status: Former smoker Tobacco Type: Cigarettes How Often Do You Have a Drink Containing Alcohol: 4 or more times a week Recent Travel in [place] within the Last 8 Weeks: No Recent Out of Country Travel within the Last 8 Weeks: No Exam Narrative Exam Narrative: GENERAL: 58yo M in mild distress. SKIN: Focused skin assessment warm/dry. HEAD: Atraumatic. Normocephalic. EYES: Pupils equal and round. No scleral icterus. No injection or drainage. CARDIOVASCULAR: Regular rate and rhythm. + murmur appreciated. RESPIRATORY: No accessory muscle use. Clear to auscultation. Breath sounds equal bilaterally. GASTROINTESTINAL: Abdomen soft, non-tender, nondistended. MUSCULOSKELETAL: No obvious deformities. No clubbing. No cyanosis. +Bilateral lower extremity edema. NEUROLOGICAL: Awake and alert. No obvious cranial nerve deficits. Motor grossly within normal limits. Normal speech. PSYCHIATRIC: Appropriate mood and affect; insight and judgment normal. Course Initial Documented Vital Signs Temperature 97.8 F 05/29/18 16:34 Pulse Rate 81 05/29/18 16:34 Respiratory Rate 16 05/29/18 16:34 Blood Pressure 96/62 L 05/29/18 16:34 Pulse Oximetry 98 05/29/18 16:34 Last Documented Vital Signs Temperature 97.8 F 05/29/18 16:34 Pulse Rate 81 05/29/18 16:34 Respiratory Rate 16 05/29/18 16:34 Blood Pressure 96/62 L 05/29/18 16:34 Pulse Oximetry 98 05/29/18 16:34 Medical Decision Making MDM Narrative Medical decision making narrative: 58yo M with cirrhosis here because he was found to have hyperkalemia and hyponatremia. Labs repeated and reviewed, no leukocytosis. H/H low at 11.6/34.3. Normal platelet. Hyponatremic at 128. Last sodium was 134 from 05/01/18. Mild hyperkalemia at 5.7. EKG showed very long OK interval which can be from hyperkalemia even though the K is not very high. Last EKG said aflutter. Will give calcium gluconate due to EKG changes and insulin/dextrose for hyperkalemia. BUN/creatinine elevated at 56/2.50. This is acutely elevated from 28/1.7 on 05/01/18. Medical Screen Exam Complete: Yes Emergency Medical Condition: Yes Differential Diagnosis Differential Diagnosis: electrolyte abnormality vs. hepatorenal failure vs. arrhythmia Lab Data Result diagrams: 05/29/18 17:50 05/29/18 17:50 Lab Results 05/29/18 05/29/18 Range/Units 17:50 17:50 CBC w Diff Slide review pending WBC 6.1 (4.0-11.0) th/mm3 RBC 4.09 L (4.50-5.90) mil/mm3 Hgb 11.6 L (13.0-17.0) gm/dL Hct 34.3 L (39.0-51.0) % MCV 83.8 (80.0-100.0) fL MCH 28.5 (27.0-34.0) pg MCHC 33.9 (32.0-36.0) % RDW 16.5 (11.6-17.2) % Plt Count 208 (150-450) th/mm3 MPV 8.1 (7.0-11.0) fL Differential Comment . Sodium 128 L (136-145) meq/L Potassium 5.7 H (3.5-5.1) meq/L Chloride 95 L (98-107) meq/L Carbon Dioxide 25.1 (21.0-32.0) meq/L Anion Gap 8 (5-15) meq/L BUN 56 H (7-18) mg/dL Creatinine 2.50 H (0.60-1.30) mg/dL Estimated GFR 27 L (>89) mL/min Random Glucose 92 (74-106) mg/dL Calcium 8.7 (8.5-10.1) mg/dL ECG Data EKG Prior to Arrival: No Attestation: I personally reviewed and interpreted this ECG as follows: Interpretation: Prolonged OK interval 400ms which is new. Last EKG showed aflutter. LBBB is unchanged from prior. Discharge Plan Discharge Disposition Patient Disposition: 30 Still Patient Physicians Team ED Provider: Cami Raya Primary Care Provider: [facility],Physician [facility] /Orders / Referrals /Forms Prescriptions: No Action furosemide [Lasix] 40 mg Tablet 40 mg PO DAILY RF: 0 ledipasvir-sofosbuvir [Harvoni] 90-400 mg Tablet 1 tab PO QAM RF: 0 tramadol [Ultram] 50 mg tablet 50 mg PO Q6H Qty: 6 RF: 0 aspirin 325 mg Tablet 325 mg PO DAILY RF: 0 atenolol 25 mg Tablet 50 mg PO DAILY RF: 0 Status ED Status: In Room
[2018-05-29 17:54] LABS: Hematocrit 34.3 % (39.0-51.0); Hemoglobin 11.6 gm/dL (13.0-17.0); Mean Corpuscular HGB Conc 33.9 % (32.0-36.0); Mean Corpuscular Hemoglobin 28.5 pg (27.0-34.0); Mean Corpuscular Volume 83.8 fL (80.0-100.0); Mean Platelet Volume 8.1 fL (7.0-11.0); Platelet Count 208 th/mm3 (150-450); Red Blood Count 4.09 mil/mm3 (4.50-5.90); Red Cell Distribution Width 16.5 % (11.6-17.2); White Blood Count 6.1 th/mm3 (4.0-11.0)
[2018-05-29 18:04] LABS: Potassium 5.7 meq/L (3.5-5.1)
[2018-05-29 18:05] LABS: Calcium 8.7 mg/dL (8.5-10.1)
[2018-05-29 18:06] LABS: Carbon Dioxide 25.1 meq/L (21.0-32.0)
[2018-05-29] MEDS ORDERED: Calcium Gluconate Inj 1 GM in Sodium Chlor 0.9% Inj 100 ML IV.SIG ONE (18:10)
[2018-05-29] MEDS ORDERED: Dextrose 50% in Water 50 ML Vial IV.PUSH ONE (18:10)
[2018-05-29] MEDS ORDERED: Bisacodyl 10 MG Supp RECTAL PRN (18:37)
[2018-05-29 18:38] LABS: Lymphocytes 26 % (9-44); Monocytes 6 % (0-8)
[2018-05-29 18:39] LABS: Eosinophils 1 % (0-4); Platelet Estimate Normal (Normal); Platelet Morphology Normal (Normal)
[2018-05-29 18:40] LABS: RBC Morphology Normal (Normal)
[2018-05-29] MEDS ORDERED: Sodium Chlor 0.9% Inj 500 ML IV.SIG SCH (19:00)
[2018-05-29] MEDS: Sod Chloride 0.9% Inj 1,000 ML IV.CONT SCH (19:21)
[2018-05-29 19:53] LABS: Bilirubin,Urine Negative (Negative); Clarity,Urine Clear (Clear); Color,Urine Yellow (Yellw/Straw); Glucose,Urine (UA) Negative (Negative); Leukocyte Esterase,Urine Negative (Negative); Nitrite,Urine Negative (Negative); PH,Urine 5.5 (5.0-8.5); Urobilinogen,Urine 0.2 mg/dL (Less than 2)
[2018-05-29 19:59] LABS: RBC,Urine 0-3 /hpf (0-3); Squamous Epithelial Cell,Urine 0-5 /hpf (0-5)
[2018-05-30] MEDS: Sod Chloride 0.9% Inj 1,000 ML IV.CONT SCH ×2 (05:19→16:57)
[2018-05-30 07:20] LABS: Calcium 8.3 mg/dL (8.5-10.1); Carbon Dioxide 26.6 meq/L (21.0-32.0); Potassium 5.8 meq/L (3.5-5.1)
--- NOTE | 2018-05-30 11:56 | US ---
EXAM DATE: 05/30/2018 11:47 AM EDT AGE/SEX: 58 years / Male INDICATIONS: Ascites. CLINICAL DATA: This is the patient's initial encounter. Patient reports that signs and symptoms have been present for 1 week and indicates a pain score of 4/10. MEDICAL/SURGICAL HISTORY: . CAD. CHF. Cirrhosis. Atrial fibrillation. Hepatitis C. Endocarditis . ETOH. [place]. Reynaud's syndrome. . Aortic valve replacement. CABG. Cholecystectomy. COMPARISON: [facility], CT ABDOMEN & PELVIS W/O CONTRAST, 05/23/2018. . FINDINGS: Masses: None Fluid Collections: Small volume ascites mainly surrounding the liver Other: None. CONCLUSION: Perihepatic ascites, insufficient at present to warrant paracentesis Electronically signed by: Sivakumar Hampton MD 05/30/2018 11:54 AM EDT
[2018-05-30] MEDS ORDERED: Dextrose 50% in Water 50 ML Vial IV.PUSH ONE (12:37)
[2018-05-30] MEDS ORDERED: RESP: Albuterol Concentrated 2.5 MG/0.5 ML Neb NEB ONE (12:37)
--- NOTE | 2018-05-30 12:39 | P.HP ---
History of Present Illness Service: Hospitalist Primary Care Physician: [facility] Chief Complaint: Hyperkalemia, elevation in Creatinine. History of Present Illness: Mr. Boogie is a pleasant 58-year-old male with a history of liver cirrhosis, chronic kidney disease, hepatitis C on Harvoni, aortic valve replacement who presented to the emergency department after he had a routine blood work that shows elevated potassium decreased sodium and elevated creatinine. Patient denies any chest pain, shortness of breath, fever or chills. However he does report increased abdominal distention and pain. He is on liver transplant list. He follows up with [facility]. On arrival patient 's BMP shows sodium 128, potassium 5.7, BUN 56 and creatinine 2.5. Patient was given insulin and dextrose as well as calcium. Although his potassium improved to 4.9, in the morning on 05/30/2018 his potassium went back up again at 5.8. Creatinine has remained 2.5 despite IV hydration. Past medical history: Congenital heart disease with bicuspid aortic valve status post aortic valve replacement, liver cirrhosis, hepatitis C Past surgical history: Cholecystectomy, knee surgery, aortic valve replacement, lung surgery, CABG, back surgery Social history: Patient denies using tobacco, alcohol, illicit drugs. Family history. Mother, brother and sisters with diabetes mellitus. Inpatient Certification: I certify that the inpatient services were ordered in accordance with Medicare regulations governing the order. This includes certification that hospital inpatient services are reasonable and necessary and in the case of services not specified as inpatient-only under 42 CFR 419.22(n), that they are appropriately provided as inpatient services in accordance to with the 2-midnight benchmark under 43 CFR 412.3(e) Estimated Total Length of Stay (Days): 3 Plans for Post Hospital Care: Home Review of Systems All other systems reviewed negative except as stated in [facility]PI [facility] - History History Provided By: Patient, Medical Record - Medical History Medical History: Medical History (Last Updated 05/29/18 @ 17:25 by Darwin Ureña RN) Cirrhosis (Acute) CAD (coronary artery disease) (Acute) Afib (Acute) Hyperlipemia (Acute) H/O: HTN (hypertension) (Acute) COPD (chronic obstructive pulmonary disease) (Acute) Hepatitis C (Acute) Myocardial infarct (Acute) Chest pain (Acute) CHF (congestive heart failure) Endocarditis History of alcohol use Raynauds syndrome Tobacco abuse - Surgical History Surgical History: Surgical History (Last Updated 05/29/18 @ 17:25 by Darwin Ureña RN) H/O aortic valve replacement (Acute) History of cholecystectomy (Acute) H/O: knee surgery History of lung surgery Hx of CABG Previous back surgery - Family History Family History: Family History (Last Reviewed 05/23/18 @ 22:55 by Oliver Olvera) Father Family history of cancer Mother Family history of diabetes mellitus Mother Family history of breast cancer - Tobacco History Second Hand Smoke Exposure: Yes Tobacco Use In Past 30 Days: Yes (states he quit 1 week ago.) Smoking Status: Former smoker Tobacco Type: Cigarettes - Alcohol History How Often Do You Have a Drink Containing Alcohol: Never - Substance Use History Substance History: Past History - Substance Use Type Alcohol Status: Early Remission Route Used: By Mouth Reason for Use: Calm Down, Feels Good Heroin Status: Sustained Remission Route Used: Intravenously Reason for Use: Feels Good Comment: has not used in over 1 year. - Travel History Recent Travel in the [place] Within the Last 8 Weeks: No Recent Travel Out of the Country Within the Last 8 Weeks: No - Immunization History Tetanus Immunization: <5 Years Hx Influenza Vaccine This Season: Yes Medications and Allergies Active Medications: Active Medications Al Hydroxide/Mg Hydroxide (Milk Of Magnesia Liq) 30 ml PO Q12H PRN PRN Reason: Mild Constipation Albuterol (Albuterol Concentrated Neb) 10 mg NEB ONCE ONE Stop: 05/30/18 12:38 Bisacodyl (Dulcolax Supp) 10 mg RECTAL DAILY PRN PRN Reason: SEVERE CONSITIPATION Dextrose (D50w Vial) 50 ml IV.PUSH UNSCH ONE Stop: 05/30/18 12:38 Sodium Chloride (Ns Inj) 500 mls @ 0 mls/hr IV.SIG BOLUS SHALINI Last Infusion: 05/29/18 21:40 Dose: Infused Sodium Chloride (Ns Inj) 1,000 mls @ 100 mls/hr IV.CONT .Q10H SHALINI Last Admin: 05/30/18 05:19 Dose: 100 mls/hr Insulin Human Regular (Novolin R Inj) 10 units IV.PUSH ONCE ONE Stop: 05/30/18 12:38 Lactulose (Lactulose Liq) 30 ml PO DAILY PRN PRN Reason: SEVERE CONSITIPATION Nystatin (Mycostatin Powder) 1 applicatio TOPICAL QID SHALINI Ondansetron HCl (Zofran Inj) 4 mg IV.PUSH Q6H PRN PRN Reason: NAUSEA OR VOMITING Sennosides (Senokot) 17.2 mg PO Q12H PRN PRN Reason: Moderate Constipation Tramadol HCl (Ultram) 50 mg PO Q6H PRN PRN Reason: PAIN SCALE 6 TO 10 Last Admin: 05/30/18 06:38 Dose: 50 mg Allergies Allergy/AdvReac Type Severity Reaction Status Date / Time erythromycin base Allergy Severe HIVES Verified 05/29/18 16:34 fenoprofen Allergy Severe HIVES Verified 05/29/18 16:34 Home Medications Medication Instructions Recorded Confirmed Type aspirin 325 mg PO DAILY 04/06/18 05/29/18 History atenolol 50 mg PO DAILY 04/27/18 05/29/18 History furosemide [Lasix] 40 mg PO DAILY 05/01/18 05/29/18 History ledipasvir-sofosbuvir [Harvoni] 1 tab PO QAM 05/23/18 05/29/18 History Exam Vital signs: Vital Signs 05/29/18 16:34 05/29/18 18:31 05/29/18 19:28 Temperature 97.8 F Pulse Rate 81 78 76 Respiratory Rate 16 18 Blood Pressure 96/62 L 97/58 L Pulse Oximetry 98 99 05/29/18 20:28 05/29/18 21:22 05/29/18 21:30 Temperature 97.1 F L Pulse Rate 88 91 H 92 H Respiratory Rate 20 Blood Pressure 82/60 L 112/59 L Pulse Oximetry 96 05/30/18 00:00 05/30/18 04:00 05/30/18 08:00 Temperature 96.3 F L 96.4 F L 96.4 F L Pulse Rate 84 84 81 Respiratory Rate 20 20 16 Blood Pressure 114/62 99/71 L 91/59 L Pulse Oximetry 93 L 93 L 97 Intake & Output 05/29/18 05/30/18 05/30/18 18:59 06:59 18:59 Intake Total 3040 / 3040 Output Total 200 / 200 Balance 2840 / 2840 Weight 86 kg 89 kg Intake: IV 1600 / 1600 NS Inj 1,000 ML @ 100 mls/hr IV 1000 / 1000 .CONT .Q10H SHALINI Rx#:[id number] Calcium Gluconate Inj 1 GM In 100 / 100 NS Inj 100 ML @ 110 mls/hr IV. SIG ONCE ONE Rx#:[id number] NS Inj 500 ML @ Wide Open IV. 500 / 500 SIG BOLUS SHALINI Rx#:[id number] Oral 1440 / 1440 Output: Urine 200 / 200 Other: # Voids 2 Weight On Admission 89.1 kg Narrative: GENERAL: This is a well-nourished, well-developed patient, in no apparent distress. SKIN: No rashes, ecchymoses or lesions. Warm and dry. HEAD: Atraumatic. Normocephalic. No temporal or scalp tenderness. EYES: Pupils equal round and reactive. No injection or drainage. ENT: Nose without bleeding, purulent drainage or septal hematoma. Airway patent. NECK: Trachea midline. No lymphadenopathy. Supple, nontender, no meningeal signs. CARDIOVASCULAR: Regular rate and rhythm without murmurs, gallops, or rubs. No JVD. RESPIRATORY: Clear to auscultation. Breath sounds equal bilaterally. No wheezes , rales, or rhonchi. GASTROINTESTINAL: Abdomen somewhat firm and distended. Mildly tender to palpation over the lower abdomen. MUSCULOSKELETAL: Extremities without clubbing, cyanosis, or edema. NEUROLOGICAL: Awake and alert. Cranial nerves II through XII intact. No focal neurological deficits. Normal speech. Results - Labs CBC & Chem 7: 05/29/18 17:50 05/30/18 06:30 Labs: Laboratory Results - last 24 hr 05/29/18 05/29/18 05/29/18 17:50 17:50 19:30 CBC w Diff Slide review pending WBC 6.1 RBC 4.09 L Hgb 11.6 L Hct 34.3 L MCV 83.8 MCH 28.5 MCHC 33.9 RDW 16.5 Plt Count 208 MPV 8.1 WBC Differential Manual diff final Seg Neuts % (Manual) 66 Lymphocytes % (Manual) 26 Monocytes % (Manual) 6 Eosinophils % (Manual) 1 Basophils % (Manual) 1 Abs Neuts (Manual) 4.0 Differential Comment . Platelet Estimate Normal Platelet Morphology Normal RBC Morphology Normal Sodium 128 L Potassium 5.7 H Chloride 95 L Carbon Dioxide 25.1 Anion Gap 8 BUN 56 H Creatinine 2.50 H Estimated GFR 27 L Random Glucose 92 Calcium 8.7 Urine Color Yellow Urine Clarity Clear Urine pH 5.5 Ur Specific Branch 1.020 Urine Protein Negative Urine Glucose (UA) Negative Urine Ketones Negative Urine Occult Blood Negative Urine Nitrate Negative Urine Bilirubin Negative Urine Urobilinogen 0.2 Ur Leukocyte Esterase Negative Urine RBC 0-3 Urine WBC 6-8 H Ur Squamous Epith Cells 0-5 Micro UA Comment Culture not ind Ur Microscopic Review Microscopic reviewed Urine Culture Comments Culture not ind 05/29/18 05/30/18 22:20 06:30 CBC w Diff WBC RBC Hgb Hct MCV MCH MCHC RDW Plt Count MPV WBC Differential Seg Neuts % (Manual) Lymphocytes % (Manual) Monocytes % (Manual) Eosinophils % (Manual) Basophils % (Manual) Abs Neuts (Manual) Differential Comment Platelet Estimate Platelet Morphology RBC Morphology Sodium 129 L Potassium 4.9 D 5.8 H D Chloride 96 L Carbon Dioxide 26.6 Anion Gap 6 BUN 54 H Creatinine 2.50 H Estimated GFR 27 L Random Glucose 90 Calcium 8.3 L Urine Color Urine Clarity Urine pH Ur Specific Branch Urine Protein Urine Glucose (UA) Urine Ketones Urine Occult Blood Urine Nitrate Urine Bilirubin Urine Urobilinogen Ur Leukocyte Esterase Urine RBC Urine WBC Ur Squamous Epith Cells Micro UA Comment Ur Microscopic Review Urine Culture Comments - Imaging Impressions Abdomen Ultrasound 05/30/18 00:00 CONCLUSION: Perihepatic ascites, insufficient at present to warrant paracentesis Caprini VTE Risk Assessment Caprini VTE Risk Assessment: Moderate/High Risk (score >= 2) Caprini Risk Assessment Model: Point Value = 1 Point Value = 2 Point Value = 3 Point Value = 5 Age 41-60 Minor surgery BMI > 25 kg/m2 Swollen legs Varicose veins or History of unexplained or recurrent spontaneous Oral contraceptives or hormone replacement Sepsis (< 1 month) Serious lung disease, including pneumonia (< 1 month) Abnormal pulmonary function Acute myocardial infarction Congestive heart failure (< 1 month) History of inflammatory bowel disease Medical patient at bed rest Age 61-74 Arthroscopic surgery Major open surgery (> 45 min) Laparoscopic surgery (> 45 min) Malignancy Confined to bed (> 72 hours) Immobilizing plaster cast Central venous access Age >= 75 History of VTE Family history of VTE Factor V Leiden Prothrombin [id number] Lupus anticoagulant Anticardiolipin antibodies Elevated serum homocysteine Heparin-induced thrombocytopenia Other congenital or acquired thrombophilia Stroke (< 1 month) Elective arthroplasty Hip, pelvis, or leg fracture Acute spinal cord injury (< 1 month) Prophylaxis Regimen: Total Risk Factor Score Risk Level Prophylaxis Regimen 0-1 Low Early ambulation 2 Moderate Order ONE of the following: *Sequential Compression Device (SCD) *Heparin 5000 units SQ BID 3-4 Higher Order ONE of the following medications: *Heparin 5000 units SQ TID *Enoxaparin/Lovenox 40 mg SQ daily (WT < 150 kg, CrCl > 30 mL/min) *Enoxaparin/Lovenox 30 mg SQ daily (WT < 150 kg, CrCl > 10-29 mL/min) *Enoxaparin/Lovenox 30 mg SQ BID (WT < 150 kg, CrCl > 30 mL/min) AND/OR *Sequential Compression Device (SCD) 5 or more Highest Order ONE of the following medications: *Heparin 5000 units SQ TID (Preferred with Epidurals) *Enoxaparin/Lovenox 40 mg SQ daily (WT < 150 kg, CrCl > 30 mL/min) *Enoxaparin/Lovenox 30 mg SQ daily (WT < 150 kg, CrCl > 10-29 mL/min) *Enoxaparin/Lovenox 30 mg SQ BID (WT < 150 kg, CrCl > 30 mL/min) AND *Sequential Compression Device (SCD) Assessment and Plan - Plan Mr. Boogie is a pleasant 58-year-old male with a history of hepatitis C on Harvoni, CKD who was admitted to the hospital after he had a blood work at the [facility] which shows hypokalemia and worsening creatinine. Acute on chronic kidney disease Hyperkalemia Hyponatremia -Creatinine 2.5. His baseline creatinine is about 1.4-1.6. -Potassium 5.8 this morning. Will give insulin and dextrose as well as albuterol nebulizer treatment. -Since IV hydration did not improve creatinine, will consult nephrology for an evaluation. -Hepatorenal syndrome is a possibility. Liver cirrhosis Hepatitis C -Patient is currently on Harvoni. Abdominal ultrasound did not reveal enough ascites to drain. -Patient follows up with [facility] with regards to liver transplant. Full code. SCDs.
[2018-05-30] MEDS: Nystatin 100,000 UNITS/GM Powder 15 GM Bottle TOPICAL SCH ×3 (16:57→21:17)
--- NOTE | 2018-05-30 21:36 | ECG ---
Date Performed: 05/29/2018 Time Performed: 17:32:58 PTAGE: 58 years EKG: Sinus rhythm LEFT BUNDLE BRANCH BLOCK ABNORMAL ECG INTERPRETATION BASED ON A DEFAULT AGE OF 40 YEARS PREVIOUS TRACING : 05/29/2018 17.25 Since the previous tracing, no significant change not ed DOCTOR: Obed Crawford Interpretating Date/Time 05/30/2018 21:34:02
--- NOTE | 2018-05-30 23:06 | P.CONNP ---
History of Present Illness Service: Nephrology Consult date: 05/30/18 Requesting Physician: Paula Ocasio Reason for Consult: Acute and chronic renal failure, hyperkalemia Primary Care Provider: [facility] Family Provider: [facility] Chief Complaint: Hyperkalemia, elevation in Creatinine. History of Present Illness: Patient is a 58-year-old male with history of aortic valve replacement, chronic liver disease, cirrhosis on treatment for hepatitis C with Harvoni, he follows with [facility] and he was told that he is in renal failure with hyperkalemia and he should come to the emergency, according to old records his baseline creatinine was 1.3 in November 2017, this has increased to 2.5 on this admission and potassium is 5.8, patient was given D50, insulin regimen potassium still remains high, patient is on cardiac diet. Review of Systems Constitutional: Reports anorexia, Reports fatigue Eyes: Denies blind spots, Denies blurry vision, Denies bulging eyes, Denies change in vision, Denies double vision, Denies discharge, Denies dry eyes, Denies floaters, Denies irritation, Denies itchy eyes, Denies loss of vision, Denies pain, Denies requires corrective lenses, Denies sensitivity to light, Denies other Ears, Nose, Mouth, and Throat: Denies abnormal hearing, Denies bleeding gums, Denies bad breath, Denies change in voice, Denies dental pain, Denies difficulty swallowing, Denies dizziness, Denies dry mouth, Denies ear discharge , Denies ear pain, Denies facial pain, Denies headache(s), Denies hearing loss, Denies hoarseness, Denies lip swelling, Denies nosebleed, Denies mouth lesions, Denies mouth pain, Denies nasal congestion, Denies nasal discharge, Denies nasal obstruction, Denies nasal trauma, Denies neck lump, Denies neck pain, Denies nose pain, Denies pain with swallowing, Denies poor balance, Denies post nasal drip, Denies ringing in the ears, Denies sinus pain, Denies sinus pressure , Denies sore throat, Denies throat swelling, Denies tongue swelling, Denies other Cardiovascular: Reports leg swelling, Reports shortness of breath Respiratory: Reports shortness of breath Gastrointestinal: Reports bloating Genitourinary: Reports other Musculoskeletal: Reports back pain, Reports body aches, Reports joint pain Skin/Breast: Reports other Neurologic: Reports weakness Psychiatric: Reports depression [facility] - History History Provided By: Patient, Medical Record - Medical History Medical History: Medical History (Last Updated 05/29/18 @ 17:25 by Darwin Ureña RN) Cirrhosis (Acute) CAD (coronary artery disease) (Acute) Afib (Acute) Hyperlipemia (Acute) H/O: HTN (hypertension) (Acute) COPD (chronic obstructive pulmonary disease) (Acute) Hepatitis C (Acute) Myocardial infarct (Acute) Chest pain (Acute) CHF (congestive heart failure) Endocarditis History of alcohol use Raynauds syndrome Tobacco abuse - Surgical History Surgical History: Surgical History (Last Updated 05/29/18 @ 17:25 by Darwin Ureña RN) H/O aortic valve replacement (Acute) History of cholecystectomy (Acute) H/O: knee surgery History of lung surgery Hx of CABG Previous back surgery - Family History Family History: Family History (Last Reviewed 05/23/18 @ 22:55 by Oliver Olvera) Father Family history of cancer Mother Family history of diabetes mellitus Mother Family history of breast cancer - Tobacco History Second Hand Smoke Exposure: Yes Tobacco Use In Past 30 Days: Yes (states he quit 1 week ago.) Smoking Status: Former smoker Tobacco Type: Cigarettes - Alcohol History How Often Do You Have a Drink Containing Alcohol: Never - Substance Use History Substance History: Past History - Substance Use Type Alcohol Status: Early Remission Route Used: By Mouth Reason for Use: Calm Down, Feels Good Heroin Status: Sustained Remission Route Used: Intravenously Reason for Use: Feels Good Comment: has not used in over 1 year. - Travel History Recent Travel in the [place] Within the Last 8 Weeks: No Recent Travel Out of the Country Within the Last 8 Weeks: No - Immunization History Tetanus Immunization: <5 Years Hx Influenza Vaccine This Season: Yes Medications and Allergies Active Medications: Active Medications Al Hydroxide/Mg Hydroxide (Milk Of Magnpetey Liq) 30 ml PO Q12H PRN PRN Reason: Mild Constipation Bisacodyl (Dulcolax Supp) 10 mg RECTAL DAILY PRN PRN Reason: SEVERE CONSITIPATION Sodium Chloride (Ns Inj) 500 mls @ 0 mls/hr IV.SIG BOLUS SHALINI Last Infusion: 05/29/18 21:40 Dose: Infused Sodium Chloride (Ns Inj) 1,000 mls @ 100 mls/hr IV.CONT .Q10H [facility] Last Admin: 05/30/18 16:57 Dose: 100 mls/hr Albumin Human (Flexbumin 25% Inj) 100 mls @ 60 mls/hr IV.SIG Q12H [facility] Lactulose (Lactulose Liq) 30 ml PO DAILY PRN PRN Reason: SEVERE CONSITIPATION Midodrine (Proamatine) 5 mg PO TID@0700,1200,1700 [facility] Nystatin (Mycostatin Powder) 1 applicatio TOPICAL QID [facility] Last Admin: 05/30/18 21:17 Dose: 1 applicatio Ondansetron HCl (Zofran Inj) 4 mg IV.PUSH Q6H PRN PRN Reason: NAUSEA OR VOMITING Patient Own: Harvoni (Ledipasvir/Sofosbuvir) 90/400 Tab 0 each PO DAILY [facility] Sennosides (Senokot) 17.2 mg PO Q12H PRN PRN Reason: Moderate Constipation Tramadol HCl (Ultram) 50 mg PO Q6H PRN PRN Reason: PAIN SCALE 6 TO 10 Last Admin: 05/30/18 06:38 Dose: 50 mg Allergies Allergy/AdvReac Type Severity Reaction Status Date / Time erythromycin base Allergy Severe HIVES Verified 05/29/18 16:34 fenoprofen Allergy Severe HIVES Verified 05/29/18 16:34 Home Medications Medication Instructions Recorded Confirmed Type aspirin 325 mg PO DAILY 04/06/18 05/29/18 History atenolol 50 mg PO DAILY 04/27/18 05/29/18 History furosemide [Lasix] 40 mg PO DAILY 05/01/18 05/29/18 History ledipasvir-sofosbuvir [Harvoni] 1 tab PO QAM 05/23/18 05/29/18 History Exam Vital signs: Vital Signs 05/30/18 00:00 05/30/18 04:00 05/30/18 08:00 Temperature 96.3 F L 96.4 F L 96.4 F L Pulse Rate 84 84 81 Respiratory Rate 20 20 16 Blood Pressure 114/62 99/71 L 91/59 L Pulse Oximetry 93 L 93 L 97 05/30/18 12:00 05/30/18 15:52 05/30/18 16:00 Temperature 96.4 F L 96.6 F L Pulse Rate 84 84 89 Respiratory Rate 16 18 18 Blood Pressure 95/64 L 105/73 Pulse Oximetry 99 99 99 05/30/18 20:20 Temperature Pulse Rate Respiratory Rate Blood Pressure Pulse Oximetry 99 Intake & Output 05/30/18 05/30/18 05/31/18 06:59 18:59 06:59 Intake Total 3040 / 3040 1959 Output Total 200 / 200 Balance 2840 / 2840 1959 Weight 89 kg Intake: IV 1600 / 1600 1000 / 1000 NS Inj 1,000 ML @ 100 mls/hr IV 1000 / 1000 1000 / 1000 .CONT .Q10H SHALINI Rx#:[id number] Calcium Gluconate Inj 1 GM In 100 / 100 NS Inj 100 ML @ 110 mls/hr IV. SIG ONCE ONE Rx#:[id number] NS Inj 500 ML @ Wide Open IV. 500 / 500 SIG BOLUS SHALINI Rx#:[id number] Oral 1440 / 1440 960 / 960 Output: Urine 200 / 200 Other: # Voids 2 3 # Bowel Movements 3 Weight On Admission 89.1 kg - Constitutional no acute distress - Routine HEENT Exam Head: Present: normocephalic Eye: Present: EOMI, PERRL - Routine Neck Exam Present: supple - Routine Respiratory Exam Present: CTA bilaterally - Routine Cardiovascular Exam Present: RRR - Routine Abdominal Exam Present: soft, distended - Routine Extremities Exam Present: edema - Routine Skin Exam Present: intact - Routine Neurological Exam Present: alert, oriented X3 Results - Lab Results 05/29/18 17:50 05/30/18 19:00 Most recent lab results Calcium 8.3 mg/dL (8.5-10.1) L 05/30/18 06:30 Assessment and Plan - Assessment (1) Acute renal failure superimposed on stage 3 chronic kidney disease Code(s): N17.9 - Acute kidney failure, unspecified; N18.3 - Chronic kidney disease, stage 3 (moderate) Status: Acute (2) Hyponatremia Code(s): E87.1 - Hypo-osmolality and hyponatremia Status: Acute (3) Hyperkalemia Code(s): E87.5 - Hyperkalemia Status: Resolved (4) Cirrhosis Code(s): K74.60 - Unspecified cirrhosis of liver Status: Acute - Plan I will check urine sodium and creatinine, give him albumin 25 g every 12 hourly , midodrine 5 mg 3 times daily as blood pressure drops, patient will take Veltassa 1 dose Change diet to renal diet limit potassium intake Monitor LFTs Low sodium is likely due to cirrhosis of the liver Follow BMP Patient likely has cardiorenal syndrome continue supportive care
[2018-05-31] MEDS: Albumin Human 25% Inj 100 ML IV.SIG SCH ×2 (00:02→11:35)
[2018-05-31] MEDS: Sod Chloride 0.9% Inj 1,000 ML IV.CONT SCH ×2 (03:18→11:41)
[2018-05-31 06:43] LABS: Potassium 5.8 meq/L (3.5-5.1)
[2018-05-31 06:47] LABS: Calcium 8.3 mg/dL (8.5-10.1)
[2018-05-31 06:48] LABS: Carbon Dioxide 22.2 meq/L (21.0-32.0)
[2018-05-31] MEDS: Nystatin 100,000 UNITS/GM Powder 15 GM Bottle TOPICAL SCH ×4 (08:05→21:58)
[2018-05-31 08:22] LABS: Albumin 3.8 g/dL (3.4-5.0)
[2018-05-31 08:27] LABS: Total Protein 7.9 g/dL (6.4-8.2)
[2018-05-31 10:51] LABS: Creatinine,Urine Random 67 mg/dL (27-300)
[2018-05-31] MEDS ORDERED: Morphine Inj 4 MG/ML Vial IV.PUSH ONE (14:15)
[2018-05-31] MEDS: Morphine Inj 4 MG/ML Vial IV.PUSH PRN ×2 (18:41→23:27)
--- NOTE | 2018-05-31 19:21 | P.PNNP ---
Subjective Interval history: Patient complaining of abdominal distention Physical Exam Vital signs: Vital Signs 05/30/18 20:00 05/30/18 20:20 05/31/18 00:00 Temperature 96.6 F L 97.5 F L Pulse Rate 86 88 Respiratory Rate 20 20 Blood Pressure 100/65 111/84 Pulse Oximetry 98 99 98 05/31/18 04:00 05/31/18 08:05 05/31/18 09:17 Temperature 97.8 F 97.7 F Pulse Rate 90 91 H Respiratory Rate 20 18 Blood Pressure 94/63 L 106/67 Pulse Oximetry 97 93 L 96 05/31/18 12:56 Temperature 96.6 F L Pulse Rate 91 H Respiratory Rate 18 Blood Pressure 114/68 Pulse Oximetry 98 Intake & Output 05/31/18 05/31/18 06/01/18 06:59 18:59 06:59 Intake Total 1340 / 1340 950 / 950 Balance 1340 / 1340 950 / 950 Weight 93.1 kg Intake: IV 1100 / 1100 950 / 950 NS Inj 1,000 ML @ 100 mls/hr IV 1000 / 1000 850 / 850 .CONT .Q10H SHALINI Rx#:[id number] Flexbumin 25% Inj 100 ML @ 60 100 / 100 100 / 100 mls/hr IV.SIG Q12H SHALINI Rx#: [id number] Oral 240 / 240 Other: # Voids 3 - Constitutional no acute distress - Routine HEENT Exam Eye: Present: EOMI - Routine Respiratory Exam Present: CTA bilaterally - Routine Cardiovascular Exam Present: RRR - Routine Abdominal Exam Present: soft, distended - Routine Extremities Exam Present: edema Assessment and Plan - Assessment (1) Acute renal failure superimposed on stage 3 chronic kidney disease Code(s): N17.9 - Acute kidney failure, unspecified; N18.3 - Chronic kidney disease, stage 3 (moderate) Status: Acute (2) Hyponatremia Code(s): E87.1 - Hypo-osmolality and hyponatremia Status: Acute (3) Cirrhosis Code(s): K74.60 - Unspecified cirrhosis of liver Status: Acute - Plan I will check urine sodium and creatinine, on midodrine 5 mg 3 times daily as blood pressure drops, patient will take Veltassa 1 dose Change diet to renal diet limit potassium intake Monitor LFTs Low sodium is likely due to cirrhosis of the liver Follow BMP Patient likely has hepatorenal syndrome continue supportive care Restart Lasix and cut back IV fluid creatinine has declined
--- NOTE | 2018-05-31 23:41 | P.PN ---
Subjective Interval history: Follow up for hepatorenal syndrome in a patient with Hep C, Cirrhosis. Patient is doing well. However, he complains of significant abdominal pain. No fever, chills. Physical Exam Vital signs: Vital Signs 05/31/18 00:00 05/31/18 04:00 05/31/18 08:05 Temperature 97.5 F L 97.8 F Pulse Rate 88 90 Respiratory Rate 20 20 Blood Pressure 111/84 94/63 L Pulse Oximetry 98 97 93 L 05/31/18 09:17 05/31/18 12:56 Temperature 97.7 F 96.6 F L Pulse Rate 91 H 91 H Respiratory Rate 18 18 Blood Pressure 106/67 114/68 Pulse Oximetry 96 98 Intake & Output 05/31/18 05/31/18 06/01/18 06:59 18:59 06:59 Intake Total 1340 / 1340 950 / 950 Balance 1340 / 1340 950 / 950 Weight 93.1 kg Intake: IV 1100 / 1100 950 / 950 NS Inj 1,000 ML @ 100 mls/hr IV 1000 / 1000 850 / 850 .CONT .Q10H [facility] Rx#:[id number] Flexbumin 25% Inj 100 ML @ 60 100 / 100 100 / 100 mls/hr IV.SIG Q12H SHALINI Rx#: [id number] Oral 240 / 240 Other: # Voids 3 Narrative: GENERAL: Alert, Oriented x 3, NAD. SKIN: Warm and dry. HEAD: Normocephalic. EYES: No scleral icterus. No injection or drainage. NECK: Supple, trachea midline. No JVD or lymphadenopathy. CARDIOVASCULAR: Regular rate and rhythm without murmurs, gallops, or rubs. RESPIRATORY: Breath sounds equal bilaterally. No accessory muscle use. GASTROINTESTINAL: Abdomen distended, somewhat tender to palpation. MUSCULOSKELETAL: No cyanosis, or edema. BACK: Nontender without obvious deformity. No CVA tenderness. Results - Labs CBC & Chem 7: 05/29/18 17:50 05/31/18 17:30 Laboratory Results - last 24 hr 05/31/18 05/31/18 05/31/18 01:55 06:18 07:45 Sodium 131 L Potassium 5.8 H Chloride 100 Carbon Dioxide 22.2 Anion Gap 9 BUN 46 H Creatinine 1.80 H Estimated GFR 39 L POC Glucose 96 Random Glucose 92 Calcium 8.3 L Total Bilirubin Direct Bilirubin Indirect Bilirubin AST ALT Alkaline Phosphatase Total Protein Albumin Ur Random Creatinine 67 Ur Random Sodium 13 05/31/18 05/31/18 07:59 17:30 Sodium Potassium 5.6 H Chloride Carbon Dioxide Anion Gap BUN Creatinine Estimated GFR POC Glucose Random Glucose Calcium Total Bilirubin 1.7 H Direct Bilirubin 0.8 H Indirect Bilirubin 0.9 H AST 42 H ALT 34 Alkaline Phosphatase 82 Total Protein 7.9 Albumin 3.8 Ur Random Creatinine Ur Random Sodium Assessment and Plan - Plan Mr. Boogie is a pleasant 58-year-old male with a history of hepatitis C on Harvoni, CKD who was admitted to the hospital after he had a blood work at the [place] which shows hypokalemia and worsening creatinine. Acute on chronic kidney disease Hyperkalemia Hyponatremia -Creatinine 2.5 --> 1.80 His baseline creatinine is about 1.4-1.6. -Potassium remains high around 5.8. -Nephrology is following. Patient is currently on Albumin infusion. -Continue Midodrine. Liver cirrhosis Hepatitis C -Patient is currently on Harvoni. Abdominal ultrasound did not reveal enough ascites to drain. -Patient follows up with [place] with regards to liver transplant. - Morphine for abdominal pain. Full code. SCDs.
[2018-06-01] MEDS: Sod Chloride 0.9% Inj 1,000 ML IV.CONT SCH (03:18)
[2018-06-01] MEDS: Morphine Inj 4 MG/ML Vial IV.PUSH PRN ×4 (04:03→20:53)
[2018-06-01 07:01] LABS: Chloride 100 meq/L (98-107); Potassium 5.5 meq/L (3.5-5.1); Sodium 130 meq/L (136-145)
[2018-06-01 07:05] LABS: Anion Gap 9 meq/L (5-15); Blood Urea Nitrogen 37 mg/dL (7-18); Calcium 8.8 mg/dL (8.5-10.1); Glucose,Random 74 mg/dL (74-106)
[2018-06-01 07:08] LABS: Alanine Aminotransferase 32 U/L (12-78); Aspartate Aminotransferase 36 U/L (15-37)
[2018-06-01 07:09] LABS: Glomerular Filtration Rate 36 mL/min (>89)
[2018-06-01 07:10] LABS: Total Protein 8.1 g/dL (6.4-8.2)
[2018-06-01 07:11] LABS: Alkaline Phosphatase 78 U/L (45-117)
[2018-06-01] MEDS: Nystatin 100,000 UNITS/GM Powder 15 GM Bottle TOPICAL SCH ×4 (09:29→20:54)
[2018-06-01] MEDS ORDERED: Metoprolol Tartrate 25 MG Tablet PO ONE (12:35)
--- NOTE | 2018-06-01 12:48 | P.PN ---
Subjective Interval history: Follow up for hepatorenal syndrome in a patient with Hep C, Cirrhosis. Patient is resting in bed, no acute concerns. No fever, chills. No CP, SOB. He had an episode of Afib. Apparently, he has had intermittent Afib before as well. He has been evaluated by a [employer] before. Physical Exam Vital signs: Vital Signs 05/31/18 12:56 05/31/18 20:00 06/01/18 00:00 Temperature 96.6 F L 96 F L 96.4 F L Pulse Rate 91 H 88 106 H Respiratory Rate 18 20 20 Blood Pressure 114/68 102/82 117/89 Pulse Oximetry 98 06/01/18 04:00 06/01/18 08:00 Temperature 97.3 F L 96.8 F L Pulse Rate 86 78 Respiratory Rate 20 16 Blood Pressure 118/83 116/70 Pulse Oximetry 96 Intake & Output 05/31/18 06/01/18 06/01/18 18:59 06:59 18:59 Intake Total 950 / 950 1240 / 1240 Balance 950 / 950 1240 / 1240 Weight 95 kg Intake: IV 950 / 950 1000 / 1000 NS Inj 1,000 ML @ 30 mls/hr IV. 850 / 850 1000 / 1000 CONT .Q24H [facility] Rx#:[id number] Flexbumin 25% Inj 100 ML @ 60 100 / 100 mls/hr IV.SIG Q12H [facility] Rx#: [id number] Oral 240 / 240 Other: # Voids 5 Narrative: GENERAL: Alert, Oriented x 3, NAD. SKIN: Warm and dry. HEAD: Normocephalic. EYES: No scleral icterus. No injection or drainage. NECK: Supple, trachea midline. No JVD or lymphadenopathy. CARDIOVASCULAR: Regular rate and rhythm without murmurs, gallops, or rubs. RESPIRATORY: Breath sounds equal bilaterally. No accessory muscle use. GASTROINTESTINAL: Abdomen distended, somewhat tender to palpation. MUSCULOSKELETAL: No cyanosis, or edema. BACK: Nontender without obvious deformity. No CVA tenderness. Results - Labs CBC & Chem 7: 05/29/18 17:50 06/01/18 06:23 Laboratory Results - last 24 hr 05/31/18 06/01/18 17:30 06:23 Sodium 130 L Potassium 5.6 H 5.5 H Chloride 100 Carbon Dioxide 21.0 Anion Gap 9 BUN 37 H Creatinine 1.90 H Estimated GFR 36 L Random Glucose 74 Calcium 8.8 Total Bilirubin 2.4 H AST 36 ALT 32 Alkaline Phosphatase 78 Total Protein 8.1 Albumin 4.0 Assessment and Plan - Plan Mr. Boogie is a pleasant 58-year-old male with a history of hepatitis C on Harvoni, CKD who was admitted to the hospital after he had a blood work at the [facility] which shows hypokalemia and worsening creatinine. Acute on chronic kidney disease Hyperkalemia Hyponatremia -Creatinine 2.5 --> 1.80 --> 1.90 His baseline creatinine is about 1.4-1.6. -Potassium remains high around 5.5 today. -Nephrology is following. Patient received Albumin infusion. -Continue Midodrine. Paroxysmal Atrial fibrillation -Patient takes Atenolol at home. Will start him on Metoprolol 25mg BID. -[id number] score 0. Although Aspirin would be beneficial, given his liver cirrhosis, it maybe risky to start Aspirin. 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 Liver cirrhosis Hepatitis C -Patient is currently on Harvoni. Abdominal ultrasound did not reveal enough ascites to drain. -Patient follows up with [facility] with regards to liver transplant. - Morphine for abdominal pain. Full code. SCDs.
[2018-06-01] MEDS ORDERED: Furosemide 40 MG Tablet PO SCH (15:30)
--- NOTE | 2018-06-01 15:30 | P.PNNP ---
Subjective Interval history: Patient complaining of constipation, at times he feels like he has paroxysmal atrial fibrillation Physical Exam Vital signs: Vital Signs 05/31/18 20:00 06/01/18 00:00 06/01/18 04:00 Temperature 96 F L 96.4 F L 97.3 F L Pulse Rate 88 106 H 86 Respiratory Rate 20 20 20 Blood Pressure 102/82 117/89 118/83 Pulse Oximetry 96 06/01/18 08:00 06/01/18 12:00 Temperature 96.8 F L 97.8 F Pulse Rate 78 85 Respiratory Rate 16 19 Blood Pressure 116/70 109/63 Pulse Oximetry 99 Intake & Output 05/31/18 06/01/18 06/01/18 18:59 06:59 18:59 Intake Total 950 / 950 1240 / 1240 100 / 100 Balance 950 / 950 1240 / 1240 100 / 100 Weight 95 kg Intake: IV 950 / 950 1000 / 1000 100 / 100 NS Inj 1,000 ML @ 30 mls/hr IV. 850 / 850 1000 / 1000 100 / 100 CONT .Q24H [facility] Rx#:[id number] Flexbumin 25% Inj 100 ML @ 60 100 / 100 mls/hr IV.SIG Q12H [facility]I Rx#: [id number] Oral 240 / 240 Other: # Voids 5 - Constitutional no acute distress - Routine HEENT Exam Head: Present: normocephalic Eye: Present: EOMI - Routine Neck Exam Present: supple - Routine Respiratory Exam Present: CTA bilaterally - Routine Cardiovascular Exam Present: RRR - Routine Abdominal Exam Present: distended - Routine Extremities Exam Present: edema Assessment and Plan - Assessment (1) Acute renal failure superimposed on stage 3 chronic kidney disease Code(s): N17.9 - Acute kidney failure, unspecified; N18.3 - Chronic kidney disease, stage 3 (moderate) Status: Acute (2) Hyponatremia Code(s): E87.1 - Hypo-osmolality and hyponatremia Status: Acute (3) Cirrhosis Code(s): K74.60 - Unspecified cirrhosis of liver Status: Acute - Plan I will check urine sodium and creatinine, on midodrine 5 mg 3 times daily as blood pressure drops, patient was given Kayexalate and restart lactulose restart Lasix Change diet to renal diet limit potassium intake Monitor LFTs Low sodium is likely due to cirrhosis of the liver Follow BMP Patient likely has hepatorenal syndrome continue supportive care IV fluids stopped patient may discharge 1-2 days
[2018-06-01] MEDS ORDERED: Sodium Polystyrene Sulfonate/Sorbitol Liq 15 GM/60 ML UDC PO ONE (16:00)
[2018-06-01] MEDS: Metoprolol Tartrate 25 MG Tablet PO SCH (20:54)
[2018-06-02] MEDS: Morphine Inj 4 MG/ML Vial IV.PUSH PRN ×2 (01:33→06:12)
[2018-06-02 08:16] LABS: Potassium 5.3 meq/L (3.5-5.1)
[2018-06-02 08:18] LABS: INR 1.7 Ratio; Prothrombin Time 17.1 sec (9.8-11.6)
[2018-06-02 08:19] LABS: Calcium 8.8 mg/dL (8.5-10.1)
[2018-06-02 08:20] LABS: Carbon Dioxide 22.4 meq/L (21.0-32.0)
[2018-06-02] MEDS: Metoprolol Tartrate 25 MG Tablet PO SCH ×3 (08:28→21:36)
[2018-06-02] MEDS: Nystatin 100,000 UNITS/GM Powder 15 GM Bottle TOPICAL SCH ×4 (08:29→21:34)
[2018-06-02] MEDS ORDERED: Torsemide 20 MG Tablet PO SCH (09:00)
--- NOTE | 2018-06-02 09:16 | P.PN ---
Subjective Interval history: Follow up for hepatorenal syndrome in a patient with Hep C, Cirrhosis. Patient reports anasarca and significant pain in his lower extremity joints. No fever, chills. Physical Exam Vital signs: Vital Signs 06/01/18 12:00 06/01/18 16:00 06/01/18 20:00 Temperature 97.8 F 96.0 F L 95.6 F L Pulse Rate 85 78 85 Respiratory Rate 19 18 18 Blood Pressure 109/63 108/66 123/84 Pulse Oximetry 99 06/02/18 00:00 06/02/18 04:00 06/02/18 07:31 Temperature 96.3 F L 96.5 F L 98.6 F Pulse Rate 83 88 87 Respiratory Rate 18 18 20 Blood Pressure 115/80 108/70 123/68 Pulse Oximetry 100 98 06/02/18 08:26 Temperature Pulse Rate Respiratory Rate Blood Pressure Pulse Oximetry 99 Intake & Output 06/01/18 06/02/18 06/02/18 18:59 06:59 18:59 Intake Total 820 / 820 480 / 480 Balance 820 / 820 480 / 480 Weight 95.1 kg Intake: IV 100 / 100 NS Inj 1,000 ML @ 30 mls/hr IV. 100 / 100 CONT .Q24H [facility] Rx#:[id number] Oral 720 / 720 480 / 480 Other: # Voids 5 4 Date of Last Bowel Movement 06/02/18 # Bowel Movements 2 3 Narrative: GENERAL: Alert, Oriented x 3, NAD. SKIN: Warm and dry. HEAD: Normocephalic. EYES: No scleral icterus. No injection or drainage. NECK: Supple, trachea midline. No JVD or lymphadenopathy. CARDIOVASCULAR: Regular rate and rhythm without murmurs, gallops, or rubs. RESPIRATORY: Breath sounds equal bilaterally. No accessory muscle use. GASTROINTESTINAL: Abdomen distended, somewhat tender to palpation. MUSCULOSKELETAL: No cyanosis. Diffuse edema in upper and lower ext. BACK: Nontender without obvious deformity. No CVA tenderness. Results - Labs CBC & Chem 7: 05/29/18 17:50 06/02/18 07:50 Laboratory Results - last 24 hr 06/02/18 06/02/18 07:50 07:50 PT 17.1 H INR 1.7 Sodium 132 L Potassium 5.3 H Chloride 100 Carbon Dioxide 22.4 Anion Gap 10 BUN 41 H Creatinine 2.20 H Estimated GFR 31 L Random Glucose 71 L Calcium 8.8 Assessment and Plan - Plan Mr. Boogie is a pleasant 58-year-old male with a history of hepatitis C on Harvoni, CKD who was admitted to the hospital after he had a blood work at the [facility] which shows hypokalemia and worsening creatinine. Acute on chronic kidney disease Hyperkalemia Hyponatremia -Creatinine 2.5 --> 1.80 --> 1.90 ==> 2.2 His baseline creatinine is about 1.4-1.6. -Potassium remains high around 5.3 today. -Nephrology is following. Patient received Albumin infusion. -Continue Midodrine. Paroxysmal Atrial fibrillation -Patient takes Atenolol at home. Will start him on Metoprolol 25mg BID. -[id number] score 0. Although Aspirin would be beneficial, given his liver cirrhosis, it maybe risky to start Aspirin. 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 Liver cirrhosis Hepatitis C -Patient is currently on Harvoni. Abdominal ultrasound did not reveal enough ascites to drain. -Patient follows up with [facility] with regards to liver transplant. - Morphine for abdominal pain. Full code. SCDs.
[2018-06-02] MEDS: oxyCODONE/Acetaminophen 10/325 Tablet PO PRN ×3 (09:24→23:36)
[2018-06-02] MEDS: Morphine Sulfate 15 MG IR Tablet PO PRN ×2 (17:12→21:34)
[2018-06-02] MEDS: Torsemide 20 MG Tablet PO SCH (21:34)
[2018-06-03] MEDS: Morphine Sulfate 15 MG IR Tablet PO PRN ×3 (06:11→19:39)
[2018-06-03] MEDS: oxyCODONE/Acetaminophen 10/325 Tablet PO PRN ×2 (09:11→17:15)
[2018-06-03] MEDS: Torsemide 20 MG Tablet PO SCH ×2 (09:12→21:32)
[2018-06-03] MEDS: metOLazone 5 MG Tablet PO SCH (09:12)
[2018-06-03] MEDS: Nystatin 100,000 UNITS/GM Powder 15 GM Bottle TOPICAL SCH ×4 (09:14→21:32)
[2018-06-03] MEDS: Metoprolol Tartrate 25 MG Tablet PO SCH ×2 (09:48→21:32)
[2018-06-03 10:09] LABS: Potassium 5.3 meq/L (3.5-5.1)
[2018-06-03 10:14] LABS: Carbon Dioxide 19.4 meq/L (21.0-32.0)
[2018-06-03] MEDS ORDERED: Albumin Human 25% Inj 100 ML IV.SIG SCH (12:00)
--- NOTE | 2018-06-03 14:52 | P.PN ---
Subjective Interval history: Follow up for hepatorenal syndrome. Patient complains of anasarca and difficulty initiating urination. No CP, fever, chills. Physical Exam Vital signs: Vital Signs 06/02/18 15:03 06/02/18 19:36 06/02/18 20:00 Temperature 97.4 F L 98.0 F Pulse Rate 83 84 Respiratory Rate 20 16 Blood Pressure 99/53 L 95/57 L Pulse Oximetry 98 98 100 06/03/18 00:00 06/03/18 07:35 06/03/18 11:25 Temperature 97.2 F L 96.8 F L 97.2 F L Pulse Rate 88 81 84 Respiratory Rate 16 20 20 Blood Pressure 118/66 112/70 116/74 Pulse Oximetry 100 93 L 939 H Intake & Output 06/02/18 06/03/18 06/03/18 18:59 06:59 18:59 Intake Total 1080 / 1080 Balance 1080 / 1080 Weight 101.1 kg Intake: Oral 1080 / 1080 Other: # Voids 5 4 Date of Last Bowel Movement 06/02/18 # Bowel Movements 2 Narrative: GENERAL: Alert, Oriented x 3, NAD. SKIN: Warm and dry. Anasarca present. Lower extremity appears cyanotic. HEAD: Normocephalic. EYES: No scleral icterus. No injection or drainage. NECK: Supple, trachea midline. No JVD or lymphadenopathy. CARDIOVASCULAR: Regular rate and rhythm without murmurs, gallops, or rubs. RESPIRATORY: Breath sounds equal bilaterally. No accessory muscle use. GASTROINTESTINAL: Abdomen distended, somewhat tender to palpation. MUSCULOSKELETAL: No cyanosis. Diffuse edema in upper and lower ext. BACK: Nontender without obvious deformity. No CVA tenderness. Results - Labs CBC & Chem 7: 06/04/18 06:11 06/04/18 06:11 Laboratory Results - last 24 hr 06/03/18 09:50 Sodium 130 L Potassium 5.3 H Chloride 99 Carbon Dioxide 19.4 L Anion Gap 12 BUN 46 H Creatinine 2.90 H Estimated GFR 22 L Random Glucose 64 L Calcium 9.0 Assessment and Plan - Plan Mr. Boogie is a pleasant 58-year-old male with a history of hepatitis C on Harvoni, CKD who was admitted to the hospital after he had a blood work at the [place] which shows hypokalemia and worsening creatinine. Acute on chronic kidney disease Hyperkalemia Hyponatremia -Creatinine 2.5 --> 1.80 --> 1.90 ==> 2.2 ==> 2.9 His baseline creatinine is about 1.4-1.6. -Potassium remains high around 5.3 today. -Discussed with Nephrology. Dr. Weber came to evaluate patient, greatly appreciate his input. Dr. Weber and I both feel that patient's care would be best managed at the main hospital due to severity of his condition and anticipation of further worsening. -Will transfer patient to the main hospital. -Continue Midodrine. Paroxysmal Atrial fibrillation -Patient takes Atenolol at home. Continue Metoprolol 25mg BID. -[id number] score 0. Although Aspirin would be beneficial, given his liver cirrhosis, it maybe risky to start Aspirin. 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 Liver cirrhosis Hepatitis C -Patient is currently on Harvoni. Abdominal ultrasound did not reveal enough ascites to drain. -[facility] with regards to [facility]. - Morphine for abdominal pain. Full code. SCDs, Ambulation.
--- NOTE | 2018-06-03 17:18 | P.PNNP ---
Subjective Interval history: no acute complaints, ongoing leg edema and increased scrotal edema Physical Exam Vital signs: Vital Signs 06/02/18 19:36 06/02/18 20:00 06/03/18 00:00 Temperature 98.0 F 97.2 F L Pulse Rate 84 88 Respiratory Rate 16 16 Blood Pressure 95/57 L 118/66 Pulse Oximetry 98 100 100 06/03/18 07:35 06/03/18 11:25 06/03/18 15:23 Temperature 96.8 F L 97.2 F L 97 F L Pulse Rate 81 84 80 Respiratory Rate 20 20 20 Blood Pressure 112/70 116/74 120/68 Pulse Oximetry 93 L 939 H 93 L Intake & Output 06/02/18 06/03/18 06/03/18 18:59 06:59 18:59 Intake Total 1080 / 1080 960 / 960 Balance 1080 / 1080 960 / 960 Weight 101.1 kg Intake: Oral 1080 / 1080 960 / 960 Other: # Voids 5 4 4 Date of Last Bowel Movement 06/02/18 # Bowel Movements 2 3 - Constitutional no acute distress - Routine HEENT Exam Head: Present: normocephalic Eye: Present: EOMI ENT: Present: mucous membranes moist - Routine Neck Exam Present: supple - Routine Respiratory Exam Present: diminished air movement - Routine Cardiovascular Exam Present: RRR - Routine Abdominal Exam Present: soft, distended - Routine Exam Penile: Present: swelling - Routine Skin Exam Present: intact - Routine Neurological Exam Present: alert, oriented X3 - Detailed Neurological Exam: Coma Scale Eye Opening: Spontaneous - Routine Psychiatric Exam Present: normal affect Assessment and Plan - Assessment (1) Acute renal failure superimposed on stage 3 chronic kidney disease Code(s): N17.9 - Acute kidney failure, unspecified; N18.3 - Chronic kidney disease, stage 3 (moderate) Status: Acute (2) Hyponatremia Code(s): E87.1 - Hypo-osmolality and hyponatremia Status: Acute (3) Cirrhosis Code(s): K74.60 - Unspecified cirrhosis of liver Status: Acute - Plan Worsening azotemia: Creatinine 1.9 -> 2.2 -> 2.9 Urine sodium low Suspect hepatorenal - patient with HCV cirrhosis and on transplant list at [place] At this time will continue with albumin infusion, add octreotide and midodrine management. Will place jordan for accurate UOP. No current IV access - follow with primary team/ vascular access team. Ok for PICC line if necessary. No indication for dialysis at this point. Not a good long-term dialysis candidate given underlying cirrhosis. Low sodium is likely due to cirrhosis of the liver Initial hyperkalemia stable. Continue medical management as needed. Follow BMP Possible transfer to main hospital for venous access, further construction safety consultant care in setting of renal failure and hepatorenal syndrome. Follow with primary team.
[2018-06-03] MEDS: Albumin Human 25% Inj 100 ML IV.SIG SCH (19:37)
[2018-06-03] MEDS ORDERED: Octreotide Inj 500 MCG/ML Vial IV.CONT SCH (21:00)
[2018-06-03] MEDS: Octreotide Inj 500 MCG in Sodium Chlor 0.9% Inj 500 ML IV.CONT SCH (21:52)
[2018-06-04] MEDS: Albumin Human 25% Inj 100 ML IV.SIG SCH ×2 (06:22→17:32)
[2018-06-04] MEDS: Morphine Sulfate 15 MG IR Tablet PO PRN ×2 (06:23→20:19)
[2018-06-04 06:26] LABS: Hematocrit 33.5 % (39.0-51.0); Hemoglobin 11.2 gm/dL (13.0-17.0); Mean Corpuscular HGB Conc 33.5 % (32.0-36.0); Mean Corpuscular Volume 86.5 fL (80.0-100.0); Mean Platelet Volume 7.3 fL (7.0-11.0); Platelet Count 190 th/mm3 (150-450); Red Blood Count 3.87 mil/mm3 (4.50-5.90); Red Cell Distribution Width 16.2 % (11.6-17.2); White Blood Count 5.1 th/mm3 (4.0-11.0)
[2018-06-04 06:38] LABS: Chloride 99 meq/L (98-107); Potassium 5.6 meq/L (3.5-5.1); Sodium 129 meq/L (136-145)
[2018-06-04 06:43] LABS: Albumin 4.1 g/dL (3.4-5.0); Calcium 9.2 mg/dL (8.5-10.1)
[2018-06-04 06:44] LABS: Anion Gap 10 meq/L (5-15); Blood Urea Nitrogen 49 mg/dL (7-18); Carbon Dioxide 20.5 meq/L (21.0-32.0); Glucose,Random 64 mg/dL (74-106); Magnesium 2.2 mg/dL (1.5-2.5)
[2018-06-04 06:46] LABS: Alanine Aminotransferase 29 U/L (12-78)
[2018-06-04 06:47] LABS: Aspartate Aminotransferase 38 U/L (15-37); Glomerular Filtration Rate 17 mL/min (>89); Phosphorus 4.9 mg/dL (2.5-4.9)
[2018-06-04 06:48] LABS: Total Protein 7.9 g/dL (6.4-8.2)
[2018-06-04 06:50] LABS: Alkaline Phosphatase 74 U/L (45-117)
--- NOTE | 2018-06-04 09:05 | P.PN ---
Subjective Interval history: Follow-up for tunnel syndrome. Patient is currently doing well. He actually feels somewhat better today. Per nursing, however, he is not urinating and bladder scan shows no significant amount of urine in the bladder. This indicates the patient's renal function is getting worse and he is becoming anuric. We initiated a transfer to the main hospital yesterday. Physical Exam Vital signs: Vital Signs 06/03/18 11:25 06/03/18 15:23 06/03/18 20:00 Temperature 97.2 F L 97 F L 96.4 F L Pulse Rate 84 80 84 Respiratory Rate 20 20 18 Blood Pressure 116/74 120/68 99/61 L Pulse Oximetry 939 H 93 L 94 L 06/04/18 00:00 06/04/18 02:03 Temperature 96.1 F L Pulse Rate 88 Respiratory Rate 18 Blood Pressure 97/61 L Pulse Oximetry 96 94 L Intake & Output 06/03/18 06/04/18 06/04/18 18:59 06:59 18:59 Intake Total 960 / 960 300 / 300 Balance 960 / 960 300 / 300 Intake: IV 100 / 100 Flexbumin 25% Inj 100 ML @ 60 100 / 100 mls/hr IV.SIG Q12H [facility] Rx#: [id number] Oral 960 / 960 200 / 200 Other: # Voids 4 Date of Last Bowel Movement 06/03/18 # Bowel Movements 3 Narrative: GENERAL: Alert, Oriented x 3, NAD. SKIN: Warm and dry. Anasarca present HEAD: Normocephalic. EYES: No scleral icterus. No injection or drainage. NECK: Supple, trachea midline. No JVD or lymphadenopathy. CARDIOVASCULAR: Regular rate and rhythm without murmurs, gallops, or rubs. RESPIRATORY: Breath sounds equal bilaterally. No accessory muscle use. GASTROINTESTINAL: Abdomen distended, somewhat tender to palpation. MUSCULOSKELETAL: No cyanosis. Diffuse edema in upper and lower ext. BACK: Nontender without obvious deformity. No CVA tenderness. Results - Labs CBC & Chem 7: 06/04/18 06:11 06/04/18 06:11 Laboratory Results - last 24 hr 06/03/18 06/04/18 06/04/18 09:50 06:11 06:11 WBC 5.1 RBC 3.87 L Hgb 11.2 L Hct 33.5 L MCV 86.5 MCH 29.0 MCHC 33.5 RDW 16.2 Plt Count 190 MPV 7.3 Sodium 130 L 129 L Potassium 5.3 H 5.6 H Chloride 99 99 Carbon Dioxide 19.4 L 20.5 L Anion Gap 12 10 BUN 46 H 49 H Creatinine 2.90 H 3.70 H Estimated GFR 22 L 17 L Random Glucose 64 L 64 L Calcium 9.0 9.2 Phosphorus 4.9 Magnesium 2.2 Total Bilirubin 2.5 H AST 38 H ALT 29 Alkaline Phosphatase 74 Total Protein 7.9 Albumin 4.1 Assessment and Plan - Plan Mr. Boogie is a pleasant 58-year-old male with a history of hepatitis C on Harvoni, CKD who was admitted to the hospital after he had a blood work at the [facility] which shows hypokalemia and worsening creatinine. Acute on chronic kidney disease Hyperkalemia Hyponatremia -Creatinine 2.5 --> 1.80 --> 1.90 ==> 2.2 ==> 2.9 ==> 3.7 His baseline creatinine is about 1.4-1.6. -Potassium remains high around 5.6 today. -Discussed with Nephrology on 06/03/2018. Dr. Weber came to evaluate patient, greatly appreciate his input. Dr. Weber and I both feel that patient's care would be best managed at the [facility] due to severity of his condition and anticipation of further worsening. -transfer patient to the main hospital. -Continue Midodrine, albumin and Octreotide. -May need at least transient dialysis. Paroxysmal Atrial fibrillation -Patient takes Atenolol at home. Continue Metoprolol 25mg BID. -[id number] score 0. Although Aspirin would be beneficial, given his liver cirrhosis, it maybe risky to start Aspirin. 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 Liver cirrhosis Hepatitis C -Patient is currently on Harvoni. Abdominal ultrasound did not reveal enough ascites to drain. -Patient follows up with [facility] with regards to liver transplant. - Morphine for abdominal pain. Full code. INR is 1.7 due to liver disease. Will start patient on Heparin 5000 unit SQ Q12hrs for DVT prophylaxis.
[2018-06-04] MEDS: Torsemide 20 MG Tablet PO SCH ×2 (10:43→20:20)
[2018-06-04] MEDS: metOLazone 5 MG Tablet PO SCH (10:43)
[2018-06-04] MEDS: Metoprolol Tartrate 25 MG Tablet PO SCH ×2 (10:44→20:19)
[2018-06-04] MEDS: oxyCODONE/Acetaminophen 10/325 Tablet PO PRN (11:01)
[2018-06-04] MEDS: Octreotide Inj 500 MCG in Sodium Chlor 0.9% Inj 500 ML IV.CONT SCH (13:03)
[2018-06-04] MEDS: Nystatin 100,000 UNITS/GM Powder 15 GM Bottle TOPICAL SCH ×3 (13:08→17:32)
--- NOTE | 2018-06-04 13:46 | P.PNNP ---
Subjective Interval history: Patient has worsening renal failure unable to void, dysuria, now has hematuria, stated Jordan catheter was attempted Physical Exam Vital signs: Vital Signs 06/03/18 15:23 06/03/18 20:00 06/04/18 00:00 Temperature 97 F L 96.4 F L 96.1 F L Pulse Rate 80 84 88 Respiratory Rate 20 18 18 Blood Pressure 120/68 99/61 L 97/61 L Pulse Oximetry 93 L 94 L 96 06/04/18 02:03 06/04/18 08:00 06/04/18 13:15 Temperature 96.2 F L 97.0 F L Pulse Rate 87 80 Respiratory Rate 18 16 Blood Pressure 102/72 97/56 L Pulse Oximetry 94 L 96 93 L Intake & Output 06/03/18 06/04/18 06/04/18 18:59 06:59 18:59 Intake Total 960 / 960 300 / 300 500.5 / 500.5 Balance 960 / 960 300 / 300 500.5 / 500.5 Intake: IV 100 / 100 500.5 / 500.5 SandoSTATIN Inj 500 MCG In NS 500.5 / 500.5 Inj 500 ML @ 50 MCG/HR 50.05 mls/hr IV.CONT .Q10H [facility] Rx#: [id number] Flexbumin 25% Inj 100 ML @ 60 100 / 100 mls/hr IV.SIG Q12H [facility]INI Rx#: [id number] Oral 960 / 960 200 / 200 Other: # Voids 4 Date of Last Bowel Movement 06/03/18 # Bowel Movements 3 - Constitutional no acute distress - Routine HEENT Exam Eye: Present: EOMI - Routine Neck Exam Present: supple - Routine Respiratory Exam Present: CTA bilaterally - Routine Cardiovascular Exam Present: irregular rhythm - Routine Abdominal Exam Present: soft, normoactive bowel sounds - Routine Extremities Exam Present: edema - Urinary Catheter Management Indwelling Urethral Catheter Cath placed during this visit: yes Reason for continuing: Acute urinary retention Insertion date: 06/04/18 Insertion time: 18:15 Assessment and Plan - Assessment (1) Acute renal failure superimposed on stage 3 chronic kidney disease Code(s): N17.9 - Acute kidney failure, unspecified; N18.3 - Chronic kidney disease, stage 3 (moderate) Status: Acute (2) Hyponatremia Code(s): E87.1 - Hypo-osmolality and hyponatremia Status: Acute (3) Cirrhosis Code(s): K74.60 - Unspecified cirrhosis of liver Status: Acute - Plan Worsening azotemia: Creatinine 1.9 -> 2.2 -> 2.9->3.7 Urine sodium low Suspect hepatorenal - patient with HCV cirrhosis and on transplant list at [place] At this time will continue with albumin infusion, add octreotide and midodrine management. Will place jordan for accurate UOP. No current IV access - follow with primary team/ vascular access team. Ok for PICC line if necessary. No indication for dialysis at this point. Not a good long-term dialysis candidate given underlying cirrhosis. Low sodium is likely due to cirrhosis of the liver Initial hyperkalemia stable. Continue medical management as needed. Follow BMP urinary retention edema give Lasix Jordan attempted now has hematuria consult Urology for urinary retention, hematuria , Jordan to be reattempted K 5.6 Kayexalate ordered May need hemodialysis
[2018-06-04] MEDS ORDERED: Sodium Polystyrene Sulfonate/Sorbitol Liq 15 GM/60 ML UDC PO ONE (15:14)
--- NOTE | 2018-06-04 18:14 | P.CONURO ---
History of Present Illness Service: Urology Consult date: 06/04/18 Reason for Consult: Retention, ARF Primary [facility] Provider[facility] Family Provider: [facility] Chief Complaint: Hyperkalemia, elevation in Creatinine. History of Present Illness: 58yo male with history of Cirrhosis, CKD, Hep C and aortic valve replacement now with ARF seen in consultation for Urinary retention. Patient's electrolytes were recently found to have elevated K as well as Creatinine. Patient reports he has been having trouble voiding for some time now. Also with signficant edema in the LE as well as scrotum and penis. Patient straining in order to void , and uncomfortable. Review of Systems All other systems reviewed negative except as stated in HPI PMFSH - History History Provided By: Patient, Medical Record - Medical History Medical History: Medical History (Last Updated 05/29/18 @ 17:25 by Darwin Jordan RN) Cirrhosis (Acute) CAD (coronary artery disease) (Acute) Afib (Acute) Hyperlipemia (Acute) H/O: HTN (hypertension) (Acute) COPD (chronic obstructive pulmonary disease) (Acute) Hepatitis C (Acute) Myocardial infarct (Acute) Chest pain (Acute) CHF (congestive heart failure) Endocarditis History of alcohol use Raynauds syndrome Tobacco abuse - Surgical History Surgical History: Surgical History (Last Updated 05/29/18 @ 17:25 by Darwin Jordan RN) H/O aortic valve replacement (Acute) History of cholecystectomy (Acute) H/O: knee surgery History of lung surgery Hx of CABG Previous back surgery - Family History Family History: Family History (Last Reviewed 05/23/18 @ 22:55 by Oliver Olvera) Father Family history of cancer Mother Family history of diabetes mellitus Mother Family history of breast cancer - Tobacco History Second Hand Smoke Exposure: Yes Tobacco Use In Past 30 Days: Yes (states he quit 1 week ago.) Smoking Status: Former smoker Tobacco Type: Cigarettes - Alcohol History How Often Do You Have a Drink Containing Alcohol: Never - Substance Use History Substance History: Past History - Substance Use Type Alcohol Status: Early Remission Route Used: By Mouth Reason for Use: Calm Down, Feels Good Heroin Status: Sustained Remission Route Used: Intravenously Reason for Use: Feels Good Comment: has not used in over 1 year. - Travel History Recent Travel in the [facility] Within the Last 8 Weeks: No Recent Travel Out of the Country Within the Last 8 Weeks: No - Immunization History Tetanus Immunization: <5 Years Hx Influenza Vaccine This Season: Yes Medications and Allergies Active Medications: Active Medications Al Hydroxide/Mg Hydroxide (Milk Of Magnesia Liq) 30 ml PO Q12H PRN PRN Reason: Mild Constipation Bisacodyl (Dulcolax Supp) 10 mg RECTAL DAILY PRN PRN Reason: SEVERE CONSITIPATION Heparin Sodium (Porcine) (Heparin Inj) 5,000 units SQ Q12HR [facility] Albumin Human (Flexbumin 25% Inj) 100 mls @ 60 mls/hr IV.SIG Q12H [facility] Last Admin: 06/04/18 17:32 Dose: 60 mls/hr Octreotide Acetate 500 mcg/ (Sodium Chloride) 500.5 mls @ 50.05 mls/hr IV.CONT .Q10H [facility] Last Admin: 06/04/18 13:03 Dose: 50 mcg/hr, 50.05 mls/hr Lactulose (Lactulose Liq) 30 ml PO BID [facility] Last Admin: 06/04/18 10:44 Dose: 30 ml Metolazone (Zaroxolyn) 5 mg PO DAILY [facility] Last Admin: 06/04/18 10:43 Dose: 5 mg Metoprolol Tartrate (Lopressor) 25 mg PO BID [facility] Last Admin: 06/04/18 10:44 Dose: 25 mg Midodrine (Proamatine) 10 mg PO TID@0700,1200,1700 [facility] Last Admin: 06/04/18 16:43 Dose: 10 mg Morphine Sulfate (Msir) 15 mg PO Q4H PRN PRN Reason: Pain 5-10 Last Admin: 06/04/18 06:23 Dose: 15 mg Nystatin (Mycostatin Powder) 1 applicatio TOPICAL QID [facility] Last Admin: 06/04/18 17:32 Dose: 1 applicatio Ondansetron HCl (Zofran Inj) 4 mg IV.PUSH Q6H PRN PRN Reason: NAUSEA OR VOMITING Last Admin: 06/01/18 17:27 Dose: 4 mg Ondansetron HCl (Zofran Odt) 4 mg PO Q4H PRN PRN Reason: NAUSEA Last Admin: 06/03/18 00:02 Dose: 4 mg Oxycodone/Acetaminophen (Percocet 10/325 Mg) 1 tab PO Q4H PRN PRN Reason: BREAKTHROUGH PAIN Last Admin: 06/04/18 11:01 Dose: 1 tab Patient Own: Harvoni (Ledipasvir/Sofosbuvir) 90/400 Tab 0 each PO DAILY [facility] Sennosides (Senokot) 17.2 mg PO Q12H PRN PRN Reason: Moderate Constipation Tamsulosin HCl (Flomax) 0.4 mg PO DAILY [facility] Last Admin: 06/04/18 16:43 Dose: 0.4 mg Torsemide (Demadex) 20 mg PO BID [facility] Last Admin: 06/04/18 10:43 Dose: 20 mg Allergies Allergy/AdvReac Type Severity Reaction Status Date / Time erythromycin base Allergy Severe HIVES Verified 05/29/18 16:34 fenoprofen Allergy Severe HIVES Verified 05/29/18 16:34 Home Medications Medication Instructions Recorded Confirmed Type aspirin 325 mg PO DAILY 04/06/18 05/29/18 History atenolol 50 mg PO DAILY 04/27/18 05/29/18 History furosemide [Lasix] 40 mg PO DAILY 05/01/18 05/29/18 History ledipasvir-sofosbuvir [Harvoni] 1 tab PO QAM 05/23/18 05/29/18 History Physical Exam Vital Signs - 24 hr 06/03/18 20:00 06/04/18 00:00 06/04/18 02:03 Temperature 96.4 F L 96.1 F L Pulse Rate 84 88 Respiratory Rate 18 18 Blood Pressure 99/61 L 97/61 L Pulse Oximetry 94 L 96 94 L 06/04/18 08:00 06/04/18 13:15 Temperature 96.2 F L 97.0 F L Pulse Rate 87 80 Respiratory Rate 18 16 Blood Pressure 102/72 97/56 L Pulse Oximetry 96 93 L Physical Exam: GENERAL: This is a well-nourished, well-developed patient, in no apparent distress. SKIN: No rashes, ecchymoses or lesions. Cool and dry. HEAD: Atraumatic. Normocephalic. EYES: Extraocular motions intact. No scleral icterus. No injection or drainage. ENT: Nose without bleeding, purulent drainage. Airway patent. NECK: Trachea midline. No JVD or lymphadenopathy. CARDIOVASCULAR: Normal pulse RESPIRATORY: nonlabored GASTROINTESTINAL: Abdomen soft, non-tender, nondistended. Edema noted at lower ab GENITOURINARY: Significant scrotal edema as well as penile/foreskin edema MUSCULOSKELETAL: Extremities without clubbing, cyanosis, or edema. NEUROLOGICAL: Awake and alert. Motor and sensory grossly within normal limits. Normal speech. Laboratory Results - last 24 hr 06/04/18 06/04/18 06:11 06:11 WBC 5.1 RBC 3.87 L Hgb 11.2 L Hct 33.5 L MCV 86.5 MCH 29.0 MCHC 33.5 RDW 16.2 Plt Count 190 MPV 7.3 Sodium 129 L Potassium 5.6 H Chloride 99 Carbon Dioxide 20.5 L Anion Gap 10 BUN 49 H Creatinine 3.70 H Estimated GFR 17 L Random Glucose 64 L Calcium 9.2 Phosphorus 4.9 Magnesium 2.2 Total Bilirubin 2.5 H AST 38 H ALT 29 Alkaline Phosphatase 74 Total Protein 7.9 Albumin 4.1 Result Diagrams: 06/04/18 06:11 06/04/18 06:11 Imaging: ITS Impressions Abdomen Ultrasound 05/30/18 00:00 CONCLUSION: Perihepatic ascites, insufficient at present to warrant paracentesis Assessment and Plan - Assessment (1) Urinary retention Code(s): R33.9 - Retention of urine, unspecified Status: Acute (2) Acute renal failure superimposed on stage 3 chronic kidney disease Code(s): N17.9 - Acute kidney failure, unspecified; N18.3 - Chronic kidney disease, stage 3 (moderate) Status: Acute - Plan -16Fr jordan catheter successfully placed -Dark yellow urine removed, not large volume -Maintain jordan catheter and may be discharged with catheter in place once medically stable -He may followup with Urology in clinic for voiding trial and for further evaluation regarding his bladder outlet obstruction -Please call with questions.
--- NOTE | 2018-06-04 18:45 | US ---
EXAM DATE: 06/04/2018 6:37 PM EDT AGE/SEX: 58 years / Male INDICATIONS: Increased lab values. CLINICAL DATA: This is the patient's initial encounter. Patient reports that signs and symptoms have been present for 1 day and indicates a pain score of 0/10. MEDICAL/SURGICAL HISTORY: Congestive heart failure. Cirrhosis. Chronic obstructive pulmonary disease. Atrial fibrillation. Coronary artery disease. Endocarditis. Hypertension. Hepatitis C. Hype rlipidemia. Myocardial infarct. Raynauds syndrome. Cholecystectomy. CABG. Aortic valve replacement . Knee surgery. Lung surgery. Back surgery. COMPARISON: [facility], CT ABDOMEN & PELVIS W/O CONTRAST, 05/23/2018. . MEASUREMENTS: Right Kidney:__10.1 x 5.2 x 5.1 cm Left Kidney:__10.2 x 4.6 x 4.9 cm FINDINGS: Right Kidney: Normal echotexture and cortical thickness. No mass or hydronephrosis. Left Kidney: Normal echotexture and cortical thickness. No mass or hydronephrosis. Bladder: Within normal limits given the degree of distension. There is fluid surrounding the bladder. Other: None. CONCLUSION: 1. Ascites, otherwise unremarkable. Electronically signed by: Karen An MD 06/04/2018 6:44 PM EDT
[2018-06-04] MEDS: Heparin - SQ 10,000 UNITS/ML Vial SQ SCH (20:20)
[2018-06-05] MEDS ORDERED: Chlorhexidine Gluconate 2% 1 Pack (2 Cloths) TOPICAL PRN (04:00)
[2018-06-05] MEDS: Nystatin 100,000 UNITS/GM Powder 15 GM Bottle TOPICAL SCH ×4 (05:31→20:17)
[2018-06-05] MEDS: Octreotide Inj 500 MCG in Sodium Chlor 0.9% Inj 500 ML IV.CONT SCH ×3 (05:35→17:27)
[2018-06-05] MEDS: Albumin Human 25% Inj 100 ML IV.SIG SCH ×2 (05:36→17:27)
[2018-06-05] MEDS: Chlorhexidine Gluconate 2% 1 Pack (2 Cloths) TOPICAL SCH (05:37)
[2018-06-05 06:19] LABS: Hematocrit 33.3 % (39.0-51.0); Mean Corpuscular HGB Conc 33.2 % (32.0-36.0); Mean Corpuscular Hemoglobin 28.5 pg (27.0-34.0); Mean Corpuscular Volume 85.7 fL (80.0-100.0); Mean Platelet Volume 7.6 fL (7.0-11.0); Platelet Count 164 th/mm3 (150-450); Red Blood Count 3.88 mil/mm3 (4.50-5.90); Red Cell Distribution Width 17.3 % (11.6-17.2)
[2018-06-05 06:38] LABS: Albumin 4.1 g/dL (3.4-5.0); Anion Gap 10 meq/L (5-15); Aspartate Aminotransferase 38 U/L (15-37); Blood Urea Nitrogen 52 mg/dL (7-18); Calcium 9.1 mg/dL (8.5-10.1); Carbon Dioxide 18.6 meq/L (21.0-32.0); Chloride 100 meq/L (98-107); Glomerular Filtration Rate 14 mL/min (>89); Glucose,Random 79 mg/dL (74-106); Magnesium 2.4 mg/dL (1.5-2.5); Potassium 5.9 meq/L (3.5-5.1); Sodium 129 meq/L (136-145)
[2018-06-05 06:40] LABS: Alanine Aminotransferase 28 U/L (12-78); Phosphorus 5.6 mg/dL (2.5-4.9)
[2018-06-05 06:41] LABS: Alkaline Phosphatase 64 U/L (45-117); Total Protein 7.8 g/dL (6.4-8.2)
[2018-06-05] MEDS: Heparin - SQ 10,000 UNITS/ML Vial SQ SCH ×2 (08:39→20:15)
[2018-06-05] MEDS: Torsemide 20 MG Tablet PO SCH ×2 (08:39→20:15)
[2018-06-05] MEDS: metOLazone 5 MG Tablet PO SCH (08:39)
[2018-06-05 09:43] LABS: ABG Base Excess -8.2 mmol/L (-2-2); ABG PCO2 37 mmHg (38-42); ABG PO2 112 mmHG (61-120)
--- NOTE | 2018-06-05 09:57 | P.PNIM ---
Subjective Interval history: Mr. Boogie is a pleasant 58-year-old male with a history of liver cirrhosis, chronic kidney disease, hepatitis C on Harvoni, aortic valve replacement who presented to the emergency department after he had a routine blood work that shows elevated potassium decreased sodium and elevated creatinine. Patient denies any chest pain, shortness of breath, fever or chills. However he does report increased abdominal distention and pain. He is on liver transplant list. He follows up with OR physicians. On arrival patient 's BMP shows sodium 128, potassium 5.7, BUN 56 and creatinine 2.5. Patient was given insulin and dextrose as well as calcium. Although his potassium improved to 4.9, in the morning on 05/30/2018 his potassium went back up again at 5.8. Creatinine has remained 2.5 despite IV hydration. Past medical history: Congenital heart disease with bicuspid aortic valve status post aortic valve replacement, liver cirrhosis, hepatitis C Past surgical history: Cholecystectomy, knee surgery, aortic valve replacement, lung surgery, CABG, back surgery Social history: Patient denies using tobacco, alcohol, illicit drugs. Family history. Mother, brother and sisters with diabetes mellitus. 8-30 Follow up for hepatorenal syndrome in a patient with Hep C, Cirrhosis. Patient is doing well. However, he complains of significant abdominal pain. No fever, chills. 8-31 Follow up for hepatorenal syndrome in a patient with Hep C, Cirrhosis. Patient is resting in bed, no acute concerns. No fever, chills. No CP, SOB. He had an episode of Afib. Apparently, he has had intermittent Afib before as well. He has been evaluated by a Manager [facility] before. 9-1 Follow up for hepatorenal syndrome in a patient with Hep C, Cirrhosis. Patient reports anasarca and significant pain in his lower extremity joints. No fever, chills. 9-2 Follow up for hepatorenal syndrome. Patient complains of anasarca and difficulty initiating urination. No CP, fever, chills. 9-3 Follow-up for tunnel syndrome. Patient is currently doing well. He actually feels somewhat better today. Per nursing, however, he is not urinating and bladder scan shows no significant amount of urine in the bladder. This indicates the patient's renal function is getting worse and he is becoming anuric. We initiated a transfer to the main hospital yesterday. 06-05 PATIENT HAS BEEN TRANSFERRED FROM [facility] FOR RENAL EVALUATIONS REMAINS CONFUSED WILL CHECK AMMONIA LEVEL TODAY AND TOMORROW PT AND OT TO EVAL AND TREAT HAD ABG DONE TODAY LOW BICARB REMAINS SOMEWHAT CONFUSED STILL DW RN AND PT AND FAMILY Physical Exam Vital signs: Vital Signs 06/04/18 13:15 06/04/18 15:00 06/04/18 16:00 Temperature 97.0 F L 97.8 F Pulse Rate 80 87 Respiratory Rate 16 11 L 12 Blood Pressure 97/56 L 115/79 111/80 Pulse Oximetry 93 L 95 90 L 06/04/18 17:00 06/04/18 18:00 06/04/18 19:00 Temperature Pulse Rate 87 80 85 Respiratory Rate 10 L 12 14 Blood Pressure 117/56 L Pulse Oximetry 06/04/18 20:00 06/05/18 00:00 06/05/18 04:00 Temperature 99.2 F 99.0 F 99.0 F Pulse Rate 86 91 H 97 H Respiratory Rate 16 16 16 Blood Pressure 116/66 97/60 L 111/64 Pulse Oximetry Intake & Output 06/04/18 06/05/18 06/05/18 18:59 06:59 18:59 Intake Total 750.5 / 750.5 840 / 840 100 / 100 Output Total 150 / 150 Balance 750.5 / 750.5 690 / 690 100 / 100 Weight 98.1 kg Intake: IV 600.5 / 600.5 600 / 600 100 / 100 SandoSTATIN Inj 500 MCG In NS 500.5 / 500.5 500 / 500 Inj 500 ML @ 50 MCG/HR 50.05 mls/hr IV.CONT .Q10H [facility] Rx#: [id number] Flexbumin 25% Inj 100 ML @ 60 100 / 100 100 / 100 100 / 100 mls/hr IV.SIG Q12H [facility] Rx#: [id number] Oral 150 / 150 240 / 240 Output: Urine Amount (Catheter) 150 / 150 Indwelling Urethral Catheter 150 / 150 Other: Date of Last Bowel Movement 06/03/18 06/05/18 # Bowel Movements 1 # Incontinent Bowel Movements 1 Narrative: GENERAL: Alert, Oriented x 2, NAD. DID NOT KNOW THE PRESIDENT OF THE SKIN: Warm and dry. Anasarca present HEAD: Normocephalic. Atraumatic EYES: No scleral icterus. No injection or drainage. NECK: Supple, trachea midline. No JVD or lymphadenopathy. CARDIOVASCULAR: Regular rate and rhythm without murmurs, gallops, or rubs. S1- S2 no S3 or S4 RESPIRATORY: Breath sounds equal bilaterally. No accessory muscle use. GASTROINTESTINAL: Abdomen distended, nontender to palpation good bowel sounds throughout soft nontender MUSCULOSKELETAL: No cyanosis. Diffuse edema in upper and lower ext. +2-3 in upper extremity and lower extremity bilaterally with some pitting in lower extremity BACK: Nontender without obvious deformity. No CVA tenderness. Insight and judgment is limited. Mood and behavior is somewhat appropriate. - Urinary Catheter Management Indwelling Urethral Catheter Cath placed during this visit: yes Reason for continuing: Acute urinary retention Insertion date: 06/04/18 Insertion time: 18:15 Results - Labs CBC & Chem 7: 06/05/18 05:29 06/05/18 05:25 Laboratory Results - last 24 hr 06/04/18 06/05/18 06/05/18 15:35 05:25 05:29 WBC 7.0 RBC 3.88 L Hgb 11.0 L Hct 33.3 L MCV 85.7 MCH 28.5 MCHC 33.2 RDW 17.3 H Plt Count 164 MPV 7.6 Puncture Site Patient Temperature O2 Saturation ABG pH ABG pCO2 ABG pO2 ABG HCO3 ABG O2 Content ABG Base Excess ABG Methemoglobin Reagan Test Hemoglobin Carboxyhemoglobin O2 Delivery Device Liter Flow Inspired O2 Critical Value Sodium 129 L Potassium 5.9 H Chloride 100 Carbon Dioxide 18.6 L Anion Gap 10 BUN 52 H Creatinine 4.26 H Estimated GFR 14 L Random Glucose 79 Calcium 9.1 Phosphorus 5.6 H Magnesium 2.4 Total Bilirubin 2.0 H AST 38 H ALT 28 Alkaline Phosphatase 64 Total Protein 7.8 Albumin 4.1 Nasal Screen MRSA (PCR) Not detected 06/05/18 09:35 WBC RBC Hgb Hct MCV MCH MCHC RDW Plt Count MPV Puncture Site Right radial Patient Temperature 98.6 O2 Saturation 95 ABG pH 7.29 L* ABG pCO2 37 L ABG pO2 112 ABG HCO3 17 L ABG O2 Content 15.2 ABG Base Excess -8.2 L ABG Methemoglobin 1.4 Reagan Test Present Hemoglobin 11.2 L Carboxyhemoglobin 1.5 O2 Delivery Device Nasal cannula Liter Flow 1.50 Inspired O2 21 Critical Value Yes Sodium Potassium Chloride Carbon Dioxide Anion Gap BUN Creatinine Estimated GFR Random Glucose Calcium Phosphorus Magnesium Total Bilirubin AST ALT Alkaline Phosphatase Total Protein Albumin Nasal Screen MRSA (PCR) - Imaging Impressions Abdomen/Bladder Ultrasound 06/04/18 00:00 CONCLUSION: 1. Ascites, otherwise unremarkable. Assessment and Plan - Plan Mr. Boogie is a pleasant 58-year-old male with a history of hepatitis C on Harvoni, CKD who was admitted to the hospital after he had a blood work at the OR which shows hypokalemia and worsening creatinine. Acute on chronic kidney disease Hyperkalemia Hyponatremia -Creatinine 2.5 --> 1.80 --> 1.90 ==> 2.2 ==> 2.9 ==> 3.7 NOW IS 4.26 His baseline creatinine is about 1.4-1.6. -Potassium remains high around 5.6 today. -Discussed with Nephrology on 06/03/2018. Dr. Weber came to evaluate patient, greatly appreciate his input. Dr. Weber and I both feel that patient's care would be best managed at [facility] due to severity of his condition and anticipation of further worsening. -transfer patient to the [facility]. -Continue Midodrine, albumin and Octreotide. -May need at least transient dialysis. REMAINS CONFUSED CHECK AMMONIA NOW AND TOMORROW Paroxysmal Atrial fibrillation -Patient takes Atenolol at home. Continue Metoprolol 25mg BID. -[id number] score 0. Although Aspirin would be beneficial, given his liver cirrhosis, it maybe risky to start Aspirin. 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 Liver cirrhosis Hepatitis C COAGULOPATHY -Patient is currently on Harvoni. Abdominal ultrasound did not reveal enough ascites to drain. -Patient follows up with OR with regards to liver transplant. - Morphine for abdominal pain. Full code. INR is 1.7 due to liver disease. Will start patient on Heparin 5000 unit SQ Q12hrs for DVT prophylaxis. PT AND OT TO EVAL AND TREAT Code Status: FULL CODE Discussed Condition With: RN AND PT AND FAMILY Discharge Planning: PENDING IMPROVEMENT
[2018-06-05 11:32] LABS: Magnesium 2.4 mg/dL (1.5-2.5)
[2018-06-05 11:41] LABS: Thyroid Stimulating Hormone 2.88 uIU/mL (0.358-3.740)
[2018-06-05] MEDS: Morphine Sulfate 15 MG IR Tablet PO PRN ×3 (13:05→21:52)
[2018-06-05] MEDS: Metoprolol Tartrate 25 MG Tablet PO SCH ×2 (13:06→20:15)
[2018-06-05 16:08] LABS: Hemoglobin A1c 5.7 % (4.3-6.0)
[2018-06-05] MEDS ORDERED: Sodium Polystyrene Sulfonate/Sorbitol Liq 15 GM/60 ML UDC PO ONE (20:22)
[2018-06-05] MEDS ORDERED: Heparin 10,000 UNITS/10 ML Vial (for IV use) OTHER PRN (20:24)
[2018-06-05] MEDS ORDERED: Sod Chloride 0.9% Inj 1,000 ML OTHER PRN (20:24)
[2018-06-05] MEDS ORDERED: Acetaminophen 325 MG Tablet PO PRN (20:24)
[2018-06-05] MEDS ORDERED: Sod Chloride 0.9% Inj 1,000 ML IV.CONT PRN (20:24)
[2018-06-05] MEDS ORDERED: Gelatin 12 MM/7 MM Topical Foam TOPICAL PRN (20:24)
--- NOTE | 2018-06-05 20:29 | P.PNNP ---
Subjective Interval history: Patient has progressive edema urine output is marginal appreciate urology help Physical Exam Vital signs: Vital Signs 06/05/18 00:00 06/05/18 04:00 06/05/18 08:00 Temperature 99.0 F 99.0 F 98.5 F Pulse Rate 91 H 97 H 106 H Respiratory Rate 16 16 8 L Blood Pressure 97/60 L 111/64 122/93 H 06/05/18 12:00 06/05/18 16:00 Temperature 98.3 F 98.9 F Pulse Rate 104 H 108 H Respiratory Rate 10 L 10 L Blood Pressure 95/60 L 125/70 Intake & Output 06/05/18 06/05/18 06/06/18 06:59 18:59 06:59 Intake Total 840 / 840 1200.5 / 1200.5 Output Total 150 / 150 500 / 500 Balance 690 / 690 700.5 / 700.5 Weight 98.1 kg Intake: IV 600 / 600 600.5 / 600.5 SandoSTATIN Inj 500 MCG In NS 500 / 500 500.5 / 500.5 Inj 500 ML @ 50 MCG/HR 50.05 mls/hr IV.CONT .Q10H [facility] Rx#: [id number] Flexbumin 25% Inj 100 ML @ 60 100 / 100 100 / 100 mls/hr IV.SIG Q12H [facility] Rx#: [id number] Oral 240 / 240 600 / 600 Output: Urine 500 / 500 Urine Amount (Catheter) 150 / 150 Indwelling Urethral Catheter 150 / 150 Other: Date of Last Bowel Movement 06/05/18 06/05/18 # Bowel Movements 1 # Incontinent Bowel Movements 1 - Constitutional no acute distress - Routine HEENT Exam Eye: Present: EOMI - Routine Neck Exam Present: supple - Routine Respiratory Exam Present: decreased breath sounds (At bases) - Routine Cardiovascular Exam Present: tachycardia, irregular rhythm - Routine Abdominal Exam Present: soft, normoactive bowel sounds - Routine Extremities Exam Present: edema - Urinary Catheter Management Indwelling Urethral Catheter Cath placed during this visit: yes Reason for continuing: Acute urinary retention Insertion date: 06/04/18 Insertion time: 18:15 Assessment and Plan - Assessment (1) Acute renal failure superimposed on stage 3 chronic kidney disease Code(s): N17.9 - Acute kidney failure, unspecified; N18.3 - Chronic kidney disease, stage 3 (moderate) Status: Acute (2) Hyponatremia Code(s): E87.1 - Hypo-osmolality and hyponatremia Status: Acute (3) Cirrhosis Code(s): K74.60 - Unspecified cirrhosis of liver Status: Acute - Plan Worsening azotemia: Creatinine 1.9 -> 2.2 -> 2.9->3.7--> 4.2 Urine sodium low Suspect hepatorenal - patient with HCV cirrhosis and on transplant list at [place] Appreciate urology input Urine output is marginally improved At this time will continue with albumin infusion, add octreotide and midodrine management. Kayexalate ordered for K5.9 hemodialysis explained to the family and patient, Vas-Cath start of dialysis duration, possible complications including cramping, low blood pressure, possibility of infections was discussed and the agreed to it
[2018-06-06] MEDS: Morphine Sulfate 15 MG IR Tablet PO PRN ×4 (02:10→23:09)
[2018-06-06 04:33] LABS: INR 1.7 Ratio; Prothrombin Time 17.2 sec (9.8-11.6)
[2018-06-06 04:45] LABS: Alanine Aminotransferase 24 U/L (12-78); Albumin 4.4 g/dL (3.4-5.0); Alkaline Phosphatase 63 U/L (45-117); Anion Gap 12 meq/L (5-15); Aspartate Aminotransferase 28 U/L (15-37); Blood Urea Nitrogen 48 mg/dL (7-18); Calcium 9.1 mg/dL (8.5-10.1); Carbon Dioxide 18.9 meq/L (21.0-32.0); Chloride 100 meq/L (98-107); Glomerular Filtration Rate 16 mL/min (>89); Glucose,Random 82 mg/dL (74-106); Magnesium 2.1 mg/dL (1.5-2.5); Phosphorus 4.6 mg/dL (2.5-4.9); Potassium 4.6 meq/L (3.5-5.1); Sodium 131 meq/L (136-145); Total Protein 7.9 g/dL (6.4-8.2)
[2018-06-06] MEDS: Albumin Human 25% Inj 100 ML IV.SIG SCH ×2 (05:20→17:02)
[2018-06-06] MEDS: Octreotide Inj 500 MCG in Sodium Chlor 0.9% Inj 500 ML IV.CONT SCH ×2 (05:21→17:15)
[2018-06-06] MEDS: Chlorhexidine Gluconate 2% 1 Pack (2 Cloths) TOPICAL SCH (05:22)
[2018-06-06 05:38] LABS: Hepatitis A IgM Antibody Nonreactive (Nonreactive); Hepatitits B Surface Antigen Nonreactive (Nonreactive)
[2018-06-06 06:50] LABS: Baso % (Auto) 0.2 % (0.0-2.0); Eos # (Auto) 0.3 th/mm3 (0.0-0.4); Eos % (Auto) 3.7 % (0.0-4.0); Hematocrit 32.8 % (39.0-51.0); Lymph # (Auto) 0.5 th/mm3 (1.0-4.8); Lymph % (Auto) 6.6 % (9.0-44.0); Mean Corpuscular HGB Conc 33.6 % (32.0-36.0); Mean Corpuscular Hemoglobin 28.3 pg (27.0-34.0); Mean Corpuscular Volume 84.3 fL (80.0-100.0); Mean Platelet Volume 7.4 fL (7.0-11.0); Mono # (Auto) 0.7 th/mm3 (0.0-0.9); Mono % (Auto) 8.9 % (0.0-8.0); Neut % (Auto) 80.6 % (16.0-70.0); Platelet Count 151 th/mm3 (150-450); Red Blood Count 3.89 mil/mm3 (4.50-5.90); Red Cell Distribution Width 17.2 % (11.6-17.2); White Blood Count 7.4 th/mm3 (4.0-11.0)
[2018-06-06] MEDS: Metoprolol Tartrate 25 MG Tablet PO SCH (08:05)
[2018-06-06] MEDS: metOLazone 5 MG Tablet PO SCH (08:05)
[2018-06-06] MEDS: Heparin - SQ 10,000 UNITS/ML Vial SQ SCH ×2 (08:05→20:15)
[2018-06-06] MEDS: Torsemide 20 MG Tablet PO SCH ×2 (08:05→20:15)
[2018-06-06] MEDS: Nystatin 100,000 UNITS/GM Powder 15 GM Bottle TOPICAL SCH ×4 (08:06→23:10)
--- NOTE | 2018-06-06 09:37 | ECG ---
Date Performed: 06/06/2018 Time Performed: 07:56:38 PTAGE: 58 years EKG: ATRIAL FLUTTER/TACHYCARDIA WITH RAPID VENTRICULAR RESPONSE LEFT BUNDLE BRANCH BLOCK ABNORMA L ECG PREVIOUS TRACING : 05/29/2018 17.32 DOCTOR: Pablo Polo Interpretating Date/Time 06/06/2018 09:37:20
--- NOTE | 2018-06-06 10:34 | P.PNNP ---
Subjective Interval history: Patient still feels weak and tired, heart rate is increased to 127 Physical Exam Vital signs: Vital Signs 06/05/18 12:00 06/05/18 16:00 06/05/18 20:00 Temperature 98.3 F 98.9 F 98.3 F Pulse Rate 104 H 108 H 109 H Respiratory Rate 10 L 10 L 14 Blood Pressure 95/60 L 125/70 121/73 06/06/18 00:00 06/06/18 04:00 06/06/18 08:00 Temperature 98.5 F 100.0 F H 99.0 F Pulse Rate 109 H 129 H 126 H Respiratory Rate 14 14 14 Blood Pressure 108/70 102/63 103/69 Intake & Output 06/05/18 06/06/18 06/06/18 18:59 06:59 18:59 Intake Total 1200.5 / 1200.5 720 / 720 100 / 100 Output Total 500 / 500 1850 / 1850 Balance 700.5 / 700.5 -1130 / -1130 100 / 100 Weight 98.8 kg Intake: IV 600.5 / 600.5 600 / 600 100 / 100 SandoSTATIN Inj 500 MCG In NS 500.5 / 500.5 500 / 500 Inj 500 ML @ 50 MCG/HR 50.05 mls/hr IV.CONT .Q10H [facility] Rx#: [id number] Flexbumin 25% Inj 100 ML @ 60 100 / 100 100 / 100 100 / 100 mls/hr IV.SIG Q12H [facility] Rx#: [id number] Oral 600 / 600 120 / 120 Output: Urine 500 / 500 Urine Amount (Catheter) 1849 Indwelling Urethral Catheter 1849 Other: Date of Last Bowel Movement 06/05/18 06/06/18 06/06/18 # Bowel Movements 1 - Constitutional no acute distress - Routine HEENT Exam Head: Present: normocephalic - Routine Neck Exam Present: supple - Routine Respiratory Exam Present: decreased breath sounds (At bases) - Routine Cardiovascular Exam Present: S1, S2, tachycardia, irregularly irregular - Routine Abdominal Exam Present: soft, distended - Routine Extremities Exam Present: edema - Urinary Catheter Management Indwelling Urethral Catheter Cath placed during this visit: yes Reason for continuing: Acute urinary retention Insertion date: 06/04/18 Insertion time: 18:15 Assessment and Plan - Assessment (1) Acute renal failure superimposed on stage 3 chronic kidney disease Code(s): N17.9 - Acute kidney failure, unspecified; N18.3 - Chronic kidney disease, stage 3 (moderate) Status: Acute (2) Hyponatremia Code(s): E87.1 - Hypo-osmolality and hyponatremia Status: Acute (3) Cirrhosis Code(s): K74.60 - Unspecified cirrhosis of liver Status: Acute - Plan Worsening azotemia: Creatinine 1.9 -> 2.2 -> 2.9->3.7->4.2->3.9 Urine sodium low Suspect hepatorenal - patient with HCV cirrhosis and on transplant list at [place] At this time will continue with albumin infusion, add octreotide and midodrine management. Will place jordan for accurate UOP. No current IV access - follow with primary team/ vascular access team. Ok for PICC line if necessary. Low sodium is likely due to cirrhosis of the liver Initial hyperkalemia stable. Continue medical management as needed. Follow BMP urinary retention resolved after Jordan catheter edema given Lasix urine output 1.8 L, creatinine 3.9, still has volume overload and now in atrial fibrillation Urology input appreciated hemodialysis planned today
--- NOTE | 2018-06-06 10:50 | P.PNIM ---
Subjective Interval history: Mr. Boogie is a pleasant 58-year-old male with a history of liver cirrhosis, chronic kidney disease, hepatitis C on Harvoni, aortic valve replacement who presented to the emergency department after he had a routine blood work that shows elevated potassium decreased sodium and elevated creatinine. Patient denies any chest pain, shortness of breath, fever or chills. However he does report increased abdominal distention and pain. He is on liver transplant list. He follows up with [facility] physicians. On arrival patient 's BMP shows sodium 128, potassium 5.7, BUN 56 and creatinine 2.5. Patient was given insulin and dextrose as well as calcium. Although his potassium improved to 4.9, in the morning on 05/30/2018 his potassium went back up again at 5.8. Creatinine has remained 2.5 despite IV hydration. Past medical history: Congenital heart disease with bicuspid aortic valve status post aortic valve replacement, liver cirrhosis, hepatitis C Past surgical history: Cholecystectomy, knee surgery, aortic valve replacement, lung surgery, CABG, back surgery Social history: Patient denies using tobacco, alcohol, illicit drugs. Family history. Mother, brother and sisters with diabetes mellitus. 8-30 Follow up for hepatorenal syndrome in a patient with Hep C, Cirrhosis. Patient is doing well. However, he complains of significant abdominal pain. No fever, chills. 8-31 Follow up for hepatorenal syndrome in a patient with Hep C, Cirrhosis. Patient is resting in bed, no acute concerns. No fever, chills. No CP, SOB. He had an episode of Afib. Apparently, he has had intermittent Afib before as well. He has been evaluated by a First Assistant before. 9-1 Follow up for hepatorenal syndrome in a patient with Hep C, Cirrhosis. Patient reports anasarca and significant pain in his lower extremity joints. No fever, chills. 9-2 Follow up for hepatorenal syndrome. Patient complains of anasarca and difficulty initiating urination. No CP, fever, chills. 9-3 Follow-up for tunnel syndrome. Patient is currently doing well. He actually feels somewhat better today. Per nursing, however, he is not urinating and bladder scan shows no significant amount of urine in the bladder. This indicates the patient's renal function is getting worse and he is becoming anuric. We initiated a transfer to the main hospital yesterday. 9-4 PATIENT HAS BEEN TRANSFERRED FROM [place] FOR RENAL EVALUATIONS REMAINS CONFUSED WILL CHECK AMMONIA LEVEL TODAY AND TOMORROW PT AND OT TO EVAL AND TREAT HAD ABG DONE TODAY LOW BICARB REMAINS SOMEWHAT CONFUSED STILL DW RN AND PT AND FAMILY 9-5 IS IN ATRIAL FLUTTER-TACHYCARDIA LESS CONFUSED PT AND OT DW RN AND PT AND WILL TRY TO IMPROVE HEART RATE AM LABS Physical Exam Vital signs: Vital Signs 06/05/18 12:00 06/05/18 16:00 06/05/18 20:00 Temperature 98.3 F 98.9 F 98.3 F Pulse Rate 104 H 108 H 109 H Respiratory Rate 10 L 10 L 14 Blood Pressure 95/60 L 125/70 121/73 06/06/18 00:00 06/06/18 04:00 06/06/18 08:00 Temperature 98.5 F 100.0 F H 99.0 F Pulse Rate 109 H 129 H 126 H Respiratory Rate 14 14 14 Blood Pressure 108/70 102/63 103/69 Intake & Output 06/05/18 06/06/18 06/06/18 18:59 06:59 18:59 Intake Total 1200.5 / 1200.5 720 / 720 100 / 100 Output Total 500 / 500 185 / 1850 Balance 700.5 / 700.5 -1130 / -1130 100 / 100 Weight 98.8 kg Intake: IV 600.5 / 600.5 600 / 600 100 / 100 SandoSTATIN Inj 500 MCG In NS 500.5 / 500.5 500 / 500 Inj 500 ML @ 50 MCG/HR 50.05 mls/hr IV.CONT .Q10H SHALINI Rx#: [id number] Flexbumin 25% Inj 100 ML @ 60 100 / 100 100 / 100 100 / 100 mls/hr IV.SIG Q12H SHALINI Rx#: [id number] Oral 600 / 600 120 / 120 Output: Urine 500 / 500 Urine Amount (Catheter) 1849 Indwelling Urethral Catheter 1849 Other: Date of Last Bowel Movement 06/05/18 06/06/18 06/06/18 # Bowel Movements 1 Narrative: GENERAL: Alert, Oriented x 3, NAD. Better oriented today SKIN: Warm and dry. Anasarca present HEAD: Normocephalic. Atraumatic EYES: No scleral icterus. No injection or drainage. NECK: Supple, trachea midline. No JVD or lymphadenopathy. CARDIOVASCULAR: Regular rate and rhythm without murmurs, gallops, or rubs. S1- S2 no S3 or S4 RESPIRATORY: Breath sounds equal bilaterally. No accessory muscle use. GASTROINTESTINAL: Abdomen distended, nontender to palpation good bowel sounds throughout soft nontender MUSCULOSKELETAL: No cyanosis. Diffuse edema in upper and lower ext. +2-3 in upper extremity and lower extremity bilaterally with some pitting in lower extremity BACK: Nontender without obvious deformity. No CVA tenderness. Insight and judgment is limited. Mood and behavior is somewhat appropriate. - Urinary Catheter Management Indwelling Urethral Catheter Cath placed during this visit: yes Reason for continuing: Acute urinary retention Insertion date: 06/04/18 Insertion time: 18:15 Results - Labs CBC & Chem 7: 06/06/18 06:15 06/06/18 04:06 Laboratory Results - last 24 hr 06/05/18 06/05/18 06/05/18 05:29 10:41 10:41 WBC RBC Hgb Hct MCV MCH MCHC RDW Plt Count MPV Neut % (Auto) Lymph % (Auto) [place] % (Auto) Eos % (Auto) Baso % (Auto) Neut # (Auto) Lymph # (Auto) [place] # (Auto) Eos # (Auto) Baso # (Auto) WBC Differential Differential Comment PT INR Sodium Potassium Chloride Carbon Dioxide Anion Gap BUN Creatinine Estimated GFR Random Glucose Hemoglobin A1c 5.7 Calcium Phosphorus Magnesium Total Bilirubin AST ALT Alkaline Phosphatase Ammonia 38 H Total Protein Albumin TSH Free T4 1.06 Hepatitis A IgM Ab Hep Bs Antigen Hep B Core IgM Ab Hep C IgG Ab 06/05/18 06/06/18 06/06/18 10:41 04:06 04:06 WBC RBC Hgb Hct MCV MCH MCHC RDW Plt Count MPV Neut % (Auto) Lymph % (Auto) [place] % (Auto) Eos % (Auto) Baso % (Auto) Neut # (Auto) Lymph # (Auto) [place] # (Auto) Eos # (Auto) Baso # (Auto) WBC Differential Differential Comment PT 17.2 H INR 1.7 Sodium Potassium Chloride Carbon Dioxide Anion Gap BUN Creatinine Estimated GFR Random Glucose Hemoglobin A1c Calcium Phosphorus Magnesium 2.4 Total Bilirubin AST ALT Alkaline Phosphatase Ammonia Total Protein Albumin TSH 2.880 Free T4 Hepatitis A IgM Ab Nonreactive Hep Bs Antigen Nonreactive Hep B Core IgM Ab Nonreactive Hep C IgG Ab Reactive H 06/06/18 06/06/18 06/06/18 04:06 04:06 06:15 WBC 7.4 RBC 3.89 L Hgb 11.0 L Hct 32.8 L MCV 84.3 MCH 28.3 MCHC 33.6 RDW 17.2 Plt Count 151 MPV 7.4 Neut % (Auto) 80.6 H Lymph % (Auto) 6.6 L [place] % (Auto) 8.9 H Eos % (Auto) 3.7 Baso % (Auto) 0.2 Neut # (Auto) 6.0 Lymph # (Auto) 0.5 L [place] # (Auto) 0.7 Eos # (Auto) 0.3 Baso # (Auto) 0.0 WBC Differential . Differential Comment Auto diff final PT INR Sodium 131 L Potassium 4.6 D Chloride 100 Carbon Dioxide 18.9 L Anion Gap 12 BUN 48 H Creatinine 3.90 H Estimated GFR 16 L Random Glucose 82 Hemoglobin A1c Calcium 9.1 Phosphorus 4.6 D Magnesium 2.1 Total Bilirubin 2.0 H AST 28 ALT 24 Alkaline Phosphatase 63 Ammonia 54 H Total Protein 7.9 Albumin 4.4 TSH Free T4 Hepatitis A IgM Ab Hep Bs Antigen Hep B Core IgM Ab Hep C IgG Ab - Imaging Abdomen Ultrasound 05/30/18 00:00 CONCLUSION: Perihepatic ascites, insufficient at present to warrant paracentesis Abdomen/Bladder Ultrasound 06/04/18 00:00 CONCLUSION: 1. Ascites, otherwise unremarkable. Assessment and Plan - Plan Mr. Boogie is a pleasant 58-year-old male with a history of hepatitis C on Harvoni, CKD who was admitted to the hospital after he had a blood work at the [facility] which shows hypokalemia and worsening creatinine. Acute on chronic kidney disease Hyperkalemia Hyponatremia -Creatinine 2.5 --> 1.80 --> 1.90 ==> 2.2 ==> 2.9 ==> 3.7 NOW IS 4.26-- NOW 3.9 His baseline creatinine is about 1.4-1.6. -Is being given Lasix 80 mg IV twice daily as well as Zaroxolyn and ProAmatine -Potassium has improved. -Discussed with Nephrology on 06/03/2018. . -transfer patient to the main hospital. -Continue Midodrine, albumin and Octreotide. -May need at least transient dialysis. REMAINS CONFUSED CHECK AMMONIA NOW AND TOMORROW Paroxysmal Atrial fibrillation -Patient takes Atenolol at home. Continue Metoprolol 25mg BID. -[id number] score 0. Although Aspirin would be beneficial, given his liver cirrhosis, it maybe risky to start Aspirin. 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 Liver cirrhosis Hepatitis C COAGULOPATHY -Patient is currently on Harvoni. Abdominal ultrasound did not reveal enough ascites to drain. -[facility]. - Morphine for abdominal pain. -Ammonia level is increased will make sure he is on lactulose may have to add rifaximin and increase lactulose to 3 times daily Full code. INR is 1.7 due to liver disease. Will start patient on Heparin 5000 unit SQ Q12hrs for DVT prophylaxis. PT AND OT TO EVAL AND TREAT Code Status: Full code Discussed Condition With: RN and patient and Discharge Planning: PENDING IMPROVEMENT
[2018-06-06] MEDS ORDERED: Metoprolol Tartrate 25 MG Tablet PO ONE (12:30)
[2018-06-06] MEDS: rifAXIMin 550 MG Tablet PO SCH ×2 (12:41→23:09)
[2018-06-06] MEDS ORDERED: *Heparin 10,000 UNITS/10 ML Vial Periprocedural ONLY ONE (16:05)
[2018-06-06] MEDS ORDERED: Heparin Central Flush 100 UNIT/ML 5 ML Vial IV.FLUSH PRN (16:17)
[2018-06-06] MEDS ORDERED: Metoprolol Inj 5 MG/5 ML Vial IV.PUSH PRN (17:26)
[2018-06-06] MEDS: Albumin Human 25% Inj 100 ML IV.SIG PRN ×2 (18:06→18:07)
[2018-06-06] MEDS: Heparin 10,000 UNITS/10 ML Vial (for IV use) OTHER PRN (18:43)
[2018-06-06] MEDS: Metoprolol Tartrate 50 MG Tablet PO SCH (20:15)
[2018-06-07 03:26] LABS: Baso % (Auto) 0.2 % (0.0-2.0); Eos # (Auto) 0.4 th/mm3 (0.0-0.4); Eos % (Auto) 8.6 % (0.0-4.0); Hemoglobin 9.9 gm/dL (13.0-17.0); Lymph # (Auto) 0.6 th/mm3 (1.0-4.8); Lymph % (Auto) 11.9 % (9.0-44.0); Mean Corpuscular HGB Conc 34.3 % (32.0-36.0); Mean Corpuscular Hemoglobin 28.5 pg (27.0-34.0); Mean Corpuscular Volume 83.3 fL (80.0-100.0); Mono # (Auto) 0.6 th/mm3 (0.0-0.9); Mono % (Auto) 12.1 % (0.0-8.0); Neut # (Auto) 3.4 th/mm3 (1.8-7.7); Neut % (Auto) 67.2 % (16.0-70.0); Platelet Count 123 th/mm3 (150-450); Red Blood Count 3.48 mil/mm3 (4.50-5.90); Red Cell Distribution Width 16.8 % (11.6-17.2)
[2018-06-07 03:32] LABS: INR 1.8 Ratio; Prothrombin Time 18.2 sec (9.8-11.6)
[2018-06-07 04:05] LABS: Alanine Aminotransferase 17 U/L (12-78); Albumin 4.6 g/dL (3.4-5.0); Alkaline Phosphatase 46 U/L (45-117); Anion Gap 12 meq/L (5-15); Aspartate Aminotransferase 18 U/L (15-37); Blood Urea Nitrogen 39 mg/dL (7-18); Calcium 8.7 mg/dL (8.5-10.1); Carbon Dioxide 24.7 meq/L (21.0-32.0); Chloride 99 meq/L (98-107); Glomerular Filtration Rate 23 mL/min (>89); Glucose,Random 81 mg/dL (74-106); Magnesium 2.1 mg/dL (1.5-2.5); Phosphorus 3.6 mg/dL (2.5-4.9); Potassium 3.2 meq/L (3.5-5.1); Sodium 136 meq/L (136-145); Total Protein 7.1 g/dL (6.4-8.2)
[2018-06-07] MEDS: Octreotide Inj 500 MCG in Sodium Chlor 0.9% Inj 500 ML IV.CONT SCH ×3 (04:48→15:23)
[2018-06-07] MEDS: Chlorhexidine Gluconate 2% 1 Pack (2 Cloths) TOPICAL SCH (04:48)
[2018-06-07] MEDS: Albumin Human 25% Inj 100 ML IV.SIG SCH ×2 (05:13→17:36)
[2018-06-07] MEDS: Metoprolol Tartrate 50 MG Tablet PO SCH ×2 (08:53→22:40)
[2018-06-07] MEDS: Heparin - SQ 10,000 UNITS/ML Vial SQ SCH ×2 (08:55→20:44)
--- NOTE | 2018-06-07 09:38 | IR ---
EXAM DATE: 06/06/2018 4:32 PM EDT AGE/SEX: 58 years / Male INDICATIONS: Patient with history of chronic kidney disease in need of non tunneled dialysis cathete r CLINICAL DATA: This is the patient's initial encounter. Patient reports that signs and symptoms have been present for 1 week and indicates a pain score of 8/10. MEDICAL/SURGICAL HISTORY: Hepatitis C. Liver cirrhosis, CKD, CAD, A-Fib, HLD, HTN, COPD, [place], CH F, Raynauds syndrome Cholecystectomy. Aortic valve replacement, Knee surgery, CABG, Lung surgery, Ba ck surgery COMPARISON: No prior exams available for comparison. FLUORO TIME (min): 0.1 IMAGE SERIES: 1 ACCESS SITE: Right internal jugular vein DEVICE(S): 14 [place] double lumen X20CM Schon catheter . . PROCEDURE : 1. Ultrasound guided venipuncture. 2. Fluoroscopic guidance. 3. Central line placement. The risks, benefits and alternatives to the procedure were explained and verbal and written consent w as obtained. The site was prepped in sterile fashion. Full sterile technique was used, including ca p, mask, sterile gloves and gown and a large sterile sheet. Hand hygiene and 2% chlorhexidine prep w as utilized per protocol for cutaneous antisepsis with appropriate dry time for site. Sterile gel an d sterile probe cover were utilized for ultrasound guidance. The skin and subcutaneous tissues were infiltrated with local anesthetic solution. A suitable site a keira the vein was selected with ultrasound and fluoroscopic guidance. A small incision was made. Th e vein was accessed under direct ultrasound visualization using the micropuncture technique. The idalia ropuncture set was exchanged for a 0.035 wire. The tract was dilated. The catheter was advanced int o position under direct fluoroscopic visualization, and was advanced with the tip at the junction of the superior vena cava and rt atrium. The catheter was fixed in place with suture and a sterile dres sing was applied. The patient tolerated the procedure well and there were no complications. CONCLUSION: 1. Uncomplicated line placement as above. Electronically signed by: Joe Garcia MD 06/07/2018 9:37 AM EDT
--- NOTE | 2018-06-07 10:46 | P.PNIM ---
Subjective Interval history: Mr. Boogie is a pleasant 58-year-old male with a history of liver cirrhosis, chronic kidney disease, hepatitis C on Harvoni, aortic valve replacement who presented to the emergency department after he had a routine blood work that shows elevated potassium decreased sodium and elevated creatinine. Patient denies any chest pain, shortness of breath, fever or chills. However he does report increased abdominal distention and pain. He is on liver transplant list. He follows up with [facility] physicians. On arrival patient 's BMP shows sodium 128, potassium 5.7, BUN 56 and creatinine 2.5. Patient was given insulin and dextrose as well as calcium. Although his potassium improved to 4.9, in the morning on 05/30/2018 his potassium went back up again at 5.8. Creatinine has remained 2.5 despite IV hydration. Past medical history: Congenital heart disease with bicuspid aortic valve status post aortic valve replacement, liver cirrhosis, hepatitis C Past surgical history: Cholecystectomy, knee surgery, aortic valve replacement, lung surgery, CABG, back surgery Social history: Patient denies using tobacco, alcohol, illicit drugs. Family history. Mother, brother and sisters with diabetes mellitus. 8-30 Follow up for hepatorenal syndrome in a patient with Hep C, Cirrhosis. Patient is doing well. However, he complains of significant abdominal pain. No fever, chills. 8-31 Follow up for hepatorenal syndrome in a patient with Hep C, Cirrhosis. Patient is resting in bed, no acute concerns. No fever, chills. No CP, SOB. He had an episode of Afib. Apparently, he has had intermittent Afib before as well. He has been evaluated by a Road Crew Member before. 9-1 Follow up for hepatorenal syndrome in a patient with Hep C, Cirrhosis. Patient reports anasarca and significant pain in his lower extremity joints. No fever, chills. 9-2 Follow up for hepatorenal syndrome. Patient complains of anasarca and difficulty initiating urination. No CP, fever, chills. 9-3 Follow-up for tunnel syndrome. Patient is currently doing well. He actually feels somewhat better today. Per nursing, however, he is not urinating and bladder scan shows no significant amount of urine in the bladder. This indicates the patient's renal function is getting worse and he is becoming anuric. We initiated a transfer to the main hospital yesterday. 9-4 PATIENT HAS BEEN TRANSFERRED FROM [place] FOR RENAL EVALUATIONS REMAINS CONFUSED WILL CHECK AMMONIA LEVEL TODAY AND TOMORROW PT AND OT TO EVAL AND TREAT HAD ABG DONE TODAY LOW BICARB REMAINS SOMEWHAT CONFUSED STILL DW RN AND PT AND FAMILY 9-5 IS IN ATRIAL FLUTTER-TACHYCARDIA LESS CONFUSED PT AND OT DW RN AND PT AND WILL TRY TO IMPROVE HEART RATE AM LABS 9-6 STARTED ON hemodialysis yesterday Had catheter placed on 95 for dialysis Feeling little better today Less confused Heart rate is better Having dialysis again today Hypokalemia is being replaced by potassium bath Discussed with patient and RN and hand embroiderer Physical Exam Vital signs: Vital Signs 06/06/18 11:00 06/06/18 12:00 06/06/18 13:00 Temperature 98.4 F Pulse Rate 127 H 127 H 106 H Respiratory Rate 11 L 10 L 10 L Blood Pressure 101/67 98/67 L 91/66 L 06/06/18 14:00 06/06/18 15:00 06/06/18 15:01 Temperature Pulse Rate 106 H 110 H 106 H Respiratory Rate 10 L 9 L 10 L Blood Pressure 98/57 L 104/65 06/06/18 16:45 06/06/18 16:48 06/06/18 16:52 Temperature 98.5 F Pulse Rate 119 H 115 H 118 H Respiratory Rate 14 11 L Blood Pressure 119/65 119/65 06/06/18 16:59 06/06/18 17:00 06/06/18 17:01 Temperature Pulse Rate 121 H 123 H 112 H Respiratory Rate 10 L 7 L 12 Blood Pressure 109/62 101/59 L 101/59 L 06/06/18 17:15 06/06/18 17:30 06/06/18 17:33 Temperature Pulse Rate 115 H 104 H 102 H Respiratory Rate 14 10 L 8 L Blood Pressure 99/65 L 106/64 106/64 06/06/18 17:45 06/06/18 18:00 06/06/18 18:15 Temperature Pulse Rate 93 H 92 H 88 Respiratory Rate 11 L 11 L 10 L Blood Pressure 98/54 L 77/52 L 77/56 L 06/06/18 18:22 06/06/18 18:30 06/06/18 18:33 Temperature Pulse Rate 87 87 87 Respiratory Rate 10 L 10 L 10 L Blood Pressure 81/63 L 83/56 L 83/56 L 06/06/18 18:45 06/06/18 19:00 06/06/18 20:00 Temperature 97.6 F Pulse Rate 86 83 85 Respiratory Rate 6 L 13 10 L Blood Pressure 88/59 L 92/67 L 92/54 L 06/06/18 21:00 06/06/18 22:00 06/06/18 22:01 Temperature Pulse Rate 86 90 85 Respiratory Rate 11 L 9 L 11 L Blood Pressure 90/58 L 91/64 L 06/06/18 23:00 06/07/18 00:00 06/07/18 01:00 Temperature 98 F Pulse Rate 110 H 89 81 Respiratory Rate 9 L 13 9 L Blood Pressure 91/59 L 81/52 L 82/52 L 06/07/18 02:00 06/07/18 03:00 06/07/18 04:00 Temperature 98.4 F Pulse Rate 81 75 80 Respiratory Rate 10 L 9 L 11 L Blood Pressure 87/53 L 83/52 L 86/53 L 06/07/18 06:00 Temperature Pulse Rate 74 Respiratory Rate Blood Pressure Intake & Output 06/06/18 06/07/18 06/07/18 18:59 06:59 18:59 Intake Total 800.5 / 800.5 1560.5 / 1560.5 Output Total 6050 / 6050 950 / 950 Balance -5249.5 / -5249.5 610.5 / 610.5 Weight 93 kg Intake: IV 800.5 / 800.5 600.5 / 600.5 SandoSTATIN Inj 500 MCG In NS 500.5 / 500.5 500.5 / 500.5 Inj 500 ML @ 50 MCG/HR 50.05 mls/hr IV.CONT .Q10H SHALINI Rx#: [id number] Flexbumin 25% Inj 100 ML @ 60 300 / 300 100 / 100 mls/hr IV.SIG Q12H SHALINI Rx#: [id number] Oral 960 / 960 Output: Urine 950 / 950 Hemodialysis Amount 4000 / 4000 Urine Amount (Catheter) 2049 Indwelling Urethral Catheter 2049 Other: Date of Last Bowel Movement 06/06/18 06/06/18 # Bowel Movements 2 Narrative: GENERAL: Alert, Oriented x 3, NAD. Better oriented today SKIN: Warm and dry. Anasarca present HEAD: Normocephalic. Atraumatic EYES: No scleral icterus. No injection or drainage. NECK: Supple, trachea midline. No JVD or lymphadenopathy. CARDIOVASCULAR: Regular rate and rhythm without murmurs, gallops, or rubs. S1- S2 no S3 or S4 RESPIRATORY: Breath sounds equal bilaterally. No accessory muscle use. GASTROINTESTINAL: Abdomen distended, nontender to palpation good bowel sounds throughout soft nontender MUSCULOSKELETAL: No cyanosis. Diffuse edema in upper and lower ext. +2-3 in upper extremity and lower extremity bilaterally with some pitting in lower extremity BACK: Nontender without obvious deformity. No CVA tenderness. Insight and judgment is limited. Mood and behavior is somewhat appropriate. - Urinary Catheter Management Indwelling Urethral Catheter Cath placed during this visit: yes Reason for continuing: Acute urinary retention Insertion date: 06/04/18 Insertion time: 18:15 Results - Labs CBC & Chem 7: 06/07/18 03:07 06/07/18 03:07 Laboratory Results - last 24 hr 06/07/18 06/07/18 06/07/18 03:07 03:07 03:07 WBC RBC Hgb Hct MCV MCH MCHC RDW Plt Count MPV Neut % (Auto) Lymph % (Auto) [place] % (Auto) Eos % (Auto) Baso % (Auto) Neut # (Auto) Lymph # (Auto) [place] # (Auto) Eos # (Auto) Baso # (Auto) WBC Differential Differential Comment PT 18.2 H INR 1.8 Sodium 136 Potassium 3.2 L D Chloride 99 Carbon Dioxide 24.7 Anion Gap 12 BUN 39 H Creatinine 2.82 H Estimated GFR 23 L Random Glucose 81 Calcium 8.7 Phosphorus 3.6 D Magnesium 2.1 Total Bilirubin 2.4 H AST 18 ALT 17 Alkaline Phosphatase 46 Ammonia 55 H Total Protein 7.1 D Albumin 4.6 06/07/18 03:07 WBC 5.0 RBC 3.48 L Hgb 9.9 L Hct 29.0 L MCV 83.3 MCH 28.5 MCHC 34.3 RDW 16.8 Plt Count 123 L MPV 7.0 Neut % (Auto) 67.2 Lymph % (Auto) 11.9 [place] % (Auto) 12.1 H Eos % (Auto) 8.6 H Baso % (Auto) 0.2 Neut # (Auto) 3.4 Lymph # (Auto) 0.6 L [place] # (Auto) 0.6 Eos # (Auto) 0.4 Baso # (Auto) 0.0 WBC Differential . Differential Comment Auto diff final PT INR Sodium Potassium Chloride Carbon Dioxide Anion Gap BUN Creatinine Estimated GFR Random Glucose Calcium Phosphorus Magnesium Total Bilirubin AST ALT Alkaline Phosphatase Ammonia Total Protein Albumin - Imaging Impressions Catheter Placement 06/06/18 08:00 CONCLUSION: 1. Uncomplicated line placement as above. - Procedures EXAM DATE: 06/06/2018 4:32 PM EDT AGE/SEX: 58 years / Male INDICATIONS: Patient with history of chronic kidney disease in need of non tunneled dialysis catheter CLINICAL DATA: This is the patient's initial encounter. Patient reports that signs and symptoms have been present for 1 week and indicates a pain score of 8/ 10. MEDICAL/SURGICAL HISTORY: Hepatitis C. Liver cirrhosis, CKD, CAD, A-Fib, HLD, HTN, COPD, [place], CHF, Raynauds syndrome Cholecystectomy. Aortic valve replacement, Knee surgery, CABG, Lung surgery, Back surgery COMPARISON: No prior exams available for comparison. FLUORO TIME (min): 0.1 IMAGE SERIES: 1 ACCESS SITE: Right internal jugular vein DEVICE(S): 14 [place] double lumen X20CM Schon catheter . . PROCEDURE : 1. Ultrasound guided venipuncture. 2. Fluoroscopic guidance. 3. Central line placement. The risks, benefits and alternatives to the procedure were explained and verbal and written consent was obtained. The site was prepped in sterile fashion. Full sterile technique was used, including cap, mask, sterile gloves and gown and a large sterile sheet. Hand hygiene and 2% chlorhexidine prep was utilized per protocol for cutaneous antisepsis with appropriate dry time for site. Sterile gel and sterile probe cover were utilized for ultrasound guidance. The skin and subcutaneous tissues were infiltrated with local anesthetic solution. A suitable site above the vein was selected with ultrasound and fluoroscopic guidance. A small incision was made. The vein was accessed under direct ultrasound visualization using the micropuncture technique. The micropuncture set was exchanged for a 0.035 wire. The tract was dilated. The catheter was advanced into position under direct fluoroscopic visualization, and was advanced with the tip at the junction of the superior vena cava and rt atrium. The catheter was fixed in place with suture and a sterile dressing was applied. The patient tolerated the procedure well and there were no complications. CONCLUSION: 1. Uncomplicated line placement as above. Electronically signed by: Joe Garcia MD 06/07/2018 9:37 AM EDT Undergoing hemodialysis so far on and Assessment and Plan - Plan Mr. Boogie is a pleasant 58-year-old male with a history of hepatitis C on Harvoni, CKD who was admitted to the hospital after he had a blood work at the [facility] which shows hypokalemia and worsening creatinine. Acute on chronic kidney disease Hyperkalemia Hyponatremia -Creatinine 2.5 --> 1.80 --> 1.90 ==> 2.2 ==> 2.9 ==> 3.7 NOW IS 4.26-- NOW 3.9 His baseline creatinine is about 1.4-1.6. -Is being given Lasix 80 mg IV twice daily as well as Zaroxolyn and ProAmatine -Potassium has improved. -Discussed with Nephrology on 06/03/2018. . -transfer patient to the main hospital. -Continue Midodrine, albumin and Octreotide. -May need at least transient dialysis. REMAINS CONFUSED CHECK AMMONIA NOW AND TOMORROW Acute renal failure status post chemo dialysis catheter placed on Status post hemodialysis on 06-06 and repeat hemodialysis on Hypokalemia replace with potassium bath during hemodialysis Paroxysmal Atrial fibrillation -Patient takes Atenolol at home. Continue Metoprolol 25mg BID. -[id number] score 0. Although Aspirin would be beneficial, given his liver cirrhosis, it maybe risky to start Aspirin. -Patient will discuss with his communications representative after hospitalization. Liver cirrhosis Hepatitis C COAGULOPATHY -Patient is currently on Harvoni. Abdominal ultrasound did not reveal enough ascites to drain. -Patient follows up with [facility] with regards to liver transplant. - Morphine for abdominal pain. -Ammonia level is increased will make sure he is on lactulose may have to add rifaximin and increase lactulose to 3 times daily-ammonia level is still increased will monitor Full code. INR is 1.7 due to liver disease. Will start patient on Heparin 5000 unit SQ Q12hrs for DVT prophylaxis. PT AND OT TO EVAL AND TREAT Code Status: Full code Discussed Condition With: RN and patient and family and hemodialysis nurse Discharge Planning: PENDING IMPROVEMENT
[2018-06-07] MEDS: rifAXIMin 550 MG Tablet PO SCH ×2 (11:33→22:40)
[2018-06-07] MEDS: metOLazone 5 MG Tablet PO SCH (11:35)
[2018-06-07] MEDS: Nystatin 100,000 UNITS/GM Powder 15 GM Bottle TOPICAL SCH ×4 (11:35→22:41)
[2018-06-07] MEDS: Torsemide 20 MG Tablet PO SCH ×2 (11:36→20:44)
--- NOTE | 2018-06-07 15:14 | P.PNNP ---
Subjective Interval history: Patient had dialysis Physical Exam Vital signs: Vital Signs 06/06/18 16:45 06/06/18 16:48 06/06/18 16:52 Temperature 98.5 F Pulse Rate 119 H 115 H 118 H Respiratory Rate 14 11 L Blood Pressure 119/65 119/65 06/06/18 16:59 06/06/18 17:00 06/06/18 17:01 Temperature Pulse Rate 121 H 123 H 112 H Respiratory Rate 10 L 7 L 12 Blood Pressure 109/62 101/59 L 101/59 L 06/06/18 17:15 06/06/18 17:30 06/06/18 17:33 Temperature Pulse Rate 115 H 104 H 102 H Respiratory Rate 14 10 L 8 L Blood Pressure 99/65 L 106/64 106/64 06/06/18 17:45 06/06/18 18:00 06/06/18 18:15 Temperature Pulse Rate 93 H 92 H 88 Respiratory Rate 11 L 11 L 10 L Blood Pressure 98/54 L 77/52 L 77/56 L 06/06/18 18:22 06/06/18 18:30 06/06/18 18:33 Temperature Pulse Rate 87 87 87 Respiratory Rate 10 L 10 L 10 L Blood Pressure 81/63 L 83/56 L 83/56 L 06/06/18 18:45 06/06/18 19:00 06/06/18 20:00 Temperature 97.6 F Pulse Rate 86 83 85 Respiratory Rate 6 L 13 10 L Blood Pressure 88/59 L 92/67 L 92/54 L 06/06/18 21:00 06/06/18 22:00 06/06/18 22:01 Temperature Pulse Rate 86 90 85 Respiratory Rate 11 L 9 L 11 L Blood Pressure 90/58 L 91/64 L 06/06/18 23:00 06/07/18 00:00 06/07/18 01:00 Temperature 98 F Pulse Rate 110 H 89 81 Respiratory Rate 9 L 13 9 L Blood Pressure 91/59 L 81/52 L 82/52 L 06/07/18 02:00 06/07/18 03:00 06/07/18 04:00 Temperature 98.4 F Pulse Rate 81 75 80 Respiratory Rate 10 L 9 L 11 L Blood Pressure 87/53 L 83/52 L 86/53 L 06/07/18 06:00 Temperature Pulse Rate 74 Respiratory Rate Blood Pressure Intake & Output 06/06/18 06/07/18 06/07/18 18:59 06:59 18:59 Intake Total 800.5 / 800.5 1560.5 / 1560.5 100 / 100 Output Total 6050 / 6050 950 / 950 1999 / 1999 Balance -5249.5 / -5249.5 610.5 / 610.5 -1900 / -1900 Weight 93 kg Intake: IV 800.5 / 800.5 600.5 / 600.5 100 / 100 SandoSTATIN Inj 500 MCG In NS 500.5 / 500.5 500.5 / 500.5 Inj 500 ML @ 50 MCG/HR 50.05 mls/hr IV.CONT .Q10H SHALINI Rx#: [id number] Flexbumin 25% Inj 100 ML @ 60 300 / 300 100 / 100 100 / 100 mls/hr IV.SIG Q12H SHALINI Rx#: [id number] Oral 960 / 960 Output: Urine 950 / 950 Hemodialysis Amount 4000 / 4000 1999 / 1999 Urine Amount (Catheter) 2049 Indwelling Urethral Catheter 2049 Other: Date of Last Bowel Movement 06/06/18 06/06/18 # Bowel Movements 2 - Constitutional no acute distress - Routine HEENT Exam Head: Present: normocephalic Eye: Present: EOMI - Routine Neck Exam Present: supple - Routine Respiratory Exam Present: CTA bilaterally - Routine Abdominal Exam Present: distended - Routine Extremities Exam Present: edema - Urinary Catheter Management Indwelling Urethral Catheter Cath placed during this visit: yes Reason for continuing: Acute urinary retention Insertion date: 06/04/18 Insertion time: 18:15 Assessment and Plan - Assessment (1) Acute renal failure superimposed on stage 3 chronic kidney disease Code(s): N17.9 - Acute kidney failure, unspecified; N18.3 - Chronic kidney disease, stage 3 (moderate) Status: Acute (2) Hyponatremia Code(s): E87.1 - Hypo-osmolality and hyponatremia Status: Acute (3) Cirrhosis Code(s): K74.60 - Unspecified cirrhosis of liver Status: Acute - Plan Worsening azotemia: Creatinine declined after dialysis Urine sodium low Suspect hepatorenal - patient with HCV cirrhosis and on transplant list at [facility] urology input Urine output is marginally improved At this time will continue with albumin infusion, add octreotide and midodrine management. Potassium is 3.2 potassium replacement ordered hemodialysis done yesterday and today ultrafiltration for liters and 2 L respectively
[2018-06-07] MEDS: Morphine Sulfate 15 MG IR Tablet PO PRN ×2 (15:33→20:44)
[2018-06-08] MEDS: Morphine Sulfate 15 MG IR Tablet PO PRN ×5 (00:45→18:14)
[2018-06-08] MEDS: Octreotide Inj 500 MCG in Sodium Chlor 0.9% Inj 500 ML IV.CONT SCH ×3 (03:30→23:18)
[2018-06-08 04:03] LABS: Baso % (Auto) 0.3 % (0.0-2.0); Eos # (Auto) 0.5 th/mm3 (0.0-0.4); Eos % (Auto) 9.3 % (0.0-4.0); Hematocrit 31.3 % (39.0-51.0); Hemoglobin 10.6 gm/dL (13.0-17.0); Lymph # (Auto) 0.7 th/mm3 (1.0-4.8); Lymph % (Auto) 13.3 % (9.0-44.0); Mean Corpuscular Hemoglobin 28.2 pg (27.0-34.0); Mean Corpuscular Volume 83.1 fL (80.0-100.0); Mean Platelet Volume 7.1 fL (7.0-11.0); Mono # (Auto) 0.5 th/mm3 (0.0-0.9); Mono % (Auto) 10.3 % (0.0-8.0); Neut # (Auto) 3.4 th/mm3 (1.8-7.7); Neut % (Auto) 66.8 % (16.0-70.0); Platelet Count 125 th/mm3 (150-450); Red Blood Count 3.76 mil/mm3 (4.50-5.90); Red Cell Distribution Width 17.2 % (11.6-17.2); White Blood Count 5.1 th/mm3 (4.0-11.0)
[2018-06-08 04:40] LABS: Alanine Aminotransferase 20 U/L (12-78); Albumin 4.4 g/dL (3.4-5.0); Alkaline Phosphatase 51 U/L (45-117); Anion Gap 11 meq/L (5-15); Aspartate Aminotransferase 19 U/L (15-37); Blood Urea Nitrogen 28 mg/dL (7-18); Calcium 8.5 mg/dL (8.5-10.1); Carbon Dioxide 26.3 meq/L (21.0-32.0); Chloride 102 meq/L (98-107); Glomerular Filtration Rate 32 mL/min (>89); Glucose,Random 85 mg/dL (74-106); Magnesium 1.9 mg/dL (1.5-2.5); Phosphorus 2.6 mg/dL (2.5-4.9); Potassium 3.1 meq/L (3.5-5.1); Sodium 139 meq/L (136-145); Total Protein 7.6 g/dL (6.4-8.2)
[2018-06-08] MEDS: Albumin Human 25% Inj 100 ML IV.SIG SCH ×2 (05:32→17:25)
[2018-06-08 06:21] LABS: INR 1.7 Ratio; Prothrombin Time 16.7 sec (9.8-11.6)
[2018-06-08] MEDS: Heparin Central Flush 100 UNIT/ML 5 ML Vial IV.FLUSH SCH ×2 (07:25→20:20)
--- NOTE | 2018-06-08 09:44 | P.PNIM ---
Subjective Interval history: Mr. Boogie is a pleasant 58-year-old male with a history of liver cirrhosis, chronic kidney disease, hepatitis C on Harvoni, aortic valve replacement who presented to the emergency department after he had a routine blood work that shows elevated potassium decreased sodium and elevated creatinine. Patient denies any chest pain, shortness of breath, fever or chills. However he does report increased abdominal distention and pain. He is on liver transplant list. He follows up with [facility]. On arrival patient 's BMP shows sodium 128, potassium 5.7, BUN 56 and creatinine 2.5. Patient was given insulin and dextrose as well as calcium. Although his potassium improved to 4.9, in the morning on 05/30/2018 his potassium went back up again at 5.8. Creatinine has remained 2.5 despite IV hydration. Past medical history: Congenital heart disease with bicuspid aortic valve status post aortic valve replacement, liver cirrhosis, hepatitis C Past surgical history: Cholecystectomy, knee surgery, aortic valve replacement, lung surgery, CABG, back surgery Social history: Patient denies using tobacco, alcohol, illicit drugs. Family history. Mother, brother and sisters with diabetes mellitus. 8-30 Follow up for hepatorenal syndrome in a patient with Hep C, Cirrhosis. Patient is doing well. However, he complains of significant abdominal pain. No fever, chills. 8-31 Follow up for hepatorenal syndrome in a patient with Hep C, Cirrhosis. Patient is resting in bed, no acute concerns. No fever, chills. No CP, SOB. He had an episode of Afib. Apparently, he has had intermittent Afib before as well. He has been evaluated by a [employer] Engineer before. 9-1 Follow up for hepatorenal syndrome in a patient with Hep C, Cirrhosis. Patient reports anasarca and significant pain in his lower extremity joints. No fever, chills. 9-2 Follow up for hepatorenal syndrome. Patient complains of anasarca and difficulty initiating urination. No CP, fever, chills. 9-3 Follow-up for tunnel syndrome. Patient is currently doing well. He actually feels somewhat better today. Per nursing, however, he is not urinating and bladder scan shows no significant amount of urine in the bladder. This indicates the patient's renal function is getting worse and he is becoming anuric. We initiated a transfer to the main hospital yesterday. - PATIENT HAS BEEN TRANSFERRED FROM [place] FOR RENAL EVALUATIONS REMAINS CONFUSED WILL CHECK AMMONIA LEVEL TODAY AND TOMORROW PT AND OT TO EVAL AND TREAT HAD ABG DONE TODAY LOW BICARB REMAINS SOMEWHAT CONFUSED STILL DW RN AND PT AND FAMILY 9-5 IS IN ATRIAL FLUTTER-TACHYCARDIA LESS CONFUSED PT AND OT DW RN AND PT AND WILL TRY TO IMPROVE HEART RATE AM LABS -6 STARTED ON hemodialysis yesterday Had catheter placed on 95 for dialysis Feeling little better today Less confused Heart rate is better Having dialysis again today Hypokalemia is being replaced by potassium bath Discussed with patient and RN and loader demolder 9-7 HAD DIALYSIS ON 06-06 AND 06-07 LESS SWELLING MEDICATIONS ADJUSTED BY NEPHROLOGY FAMILY AT BEDSIDE QUESTIONS ANSWERED Physical Exam Vital signs: Vital Signs 06/07/18 09:45 06/07/18 10:00 06/07/18 10:15 Temperature Pulse Rate 73 73 70 Respiratory Rate 9 L 15 9 L Blood Pressure 86/56 L 82/54 L 91/59 L 06/07/18 10:30 06/07/18 10:45 06/07/18 10:59 Temperature Pulse Rate 68 90 76 Respiratory Rate 9 L 13 16 Blood Pressure 85/50 L 84/67 L 86/57 L 06/07/18 11:00 06/07/18 11:01 06/07/18 11:30 Temperature Pulse Rate 132 H 175 H 79 Respiratory Rate 20 12 11 L Blood Pressure 86/50 L 93/62 L 06/07/18 12:00 06/07/18 12:30 06/07/18 13:00 Temperature 98.0 F Pulse Rate 76 73 74 Respiratory Rate 9 L 7 L 8 L Blood Pressure 84/59 L 86/54 L 90/60 L 06/07/18 13:30 06/07/18 14:00 06/07/18 15:00 Temperature Pulse Rate 75 74 68 Respiratory Rate 10 L 9 L 8 L Blood Pressure 79/56 L 86/50 L 06/07/18 15:57 06/07/18 16:00 06/07/18 16:30 Temperature 98.0 F Pulse Rate 82 73 75 Respiratory Rate 12 12 10 L Blood Pressure 101/64 94/69 L 90/61 L 06/07/18 17:00 06/07/18 17:33 06/07/18 18:00 Temperature Pulse Rate 73 85 70 Respiratory Rate 8 L 7 L Blood Pressure 93/60 L 92/56 L 06/07/18 18:01 06/07/18 20:00 06/07/18 22:00 Temperature 97.4 F L Pulse Rate 76 72 98 H Respiratory Rate 11 L 14 Blood Pressure 97/68 L 87/59 L 06/08/18 00:00 06/08/18 02:00 06/08/18 04:00 Temperature 97.6 F 97.9 F Pulse Rate 85 77 87 Respiratory Rate 12 16 Blood Pressure 81/51 L 89/50 L 06/08/18 06:00 Temperature Pulse Rate 93 H Respiratory Rate Blood Pressure Intake & Output 06/07/18 06/08/18 06/08/18 18:59 06:59 18:59 Intake Total 2115 / 2115 980.5 / 980.5 Output Total 2578 / 2578 600 / 600 Balance -463 / -463 380.5 / 380.5 Weight 92.6 kg Intake: IV 675 / 675 500.5 / 500.5 SandoSTATIN Inj 500 MCG In NS 475 / 475 500.5 / 500.5 Inj 500 ML @ 50 MCG/HR 50.05 mls/hr IV.CONT .Q10H SHALINI Rx#: [id number] Flexbumin 25% Inj 100 ML @ 60 200 / 200 mls/hr IV.SIG Q12H SHALINI Rx#: [id number] Oral 1440 / 1440 480 / 480 Output: Urine 578 / 578 Hemodialysis Amount 1999 / 1999 Urine Amount (Catheter) 600 / 600 Indwelling Urethral Catheter 600 / 600 Other: Date of Last Bowel Movement 06/07/18 06/07/18 # Bowel Movements 2 1 Narrative: GENERAL: Alert, Oriented x 3, NAD. Better oriented today SKIN: Warm and dry. Anasarca present HEAD: Normocephalic. Atraumatic EYES: No scleral icterus. No injection or drainage. NECK: Supple, trachea midline. No JVD or lymphadenopathy. CARDIOVASCULAR: Regular rate and rhythm without murmurs, gallops, or rubs. S1- S2 no S3 or S4 RESPIRATORY: Breath sounds equal bilaterally. No accessory muscle use. GASTROINTESTINAL: Abdomen distended, nontender to palpation good bowel sounds throughout soft nontender MUSCULOSKELETAL: No cyanosis. LESS edema in upper and lower ext. +1 in upper extremity and lower extremity bilaterally BACK: Nontender without obvious deformity. No CVA tenderness. Insight and judgment is limited. Mood and behavior is somewhat appropriate. - Urinary Catheter Management Indwelling Urethral Catheter Cath placed during this visit: yes Reason for continuing: Acute urinary retention Insertion date: 06/04/18 Insertion time: 18:15 Results - Labs CBC & Chem 7: 06/08/18 03:46 06/08/18 03:46 Laboratory Results - last 24 hr 06/07/18 06/08/18 06/08/18 13:20 03:46 03:46 WBC RBC Hgb Hct MCV MCH MCHC RDW Plt Count MPV Neut % (Auto) Lymph % (Auto) Hanson % (Auto) Eos % (Auto) Baso % (Auto) Neut # (Auto) Lymph # (Auto) Hanson # (Auto) Eos # (Auto) Baso # (Auto) WBC Differential Differential Comment PT INR Sodium 139 Potassium 3.2 L 3.1 L Chloride 102 Carbon Dioxide 26.3 Anion Gap 11 BUN 28 H Creatinine 2.11 H Estimated GFR 32 L Random Glucose 85 Calcium 8.5 Phosphorus 2.6 D Magnesium 1.9 Total Bilirubin 2.0 H AST 19 ALT 20 Alkaline Phosphatase 51 Ammonia 68 H Total Protein 7.6 Albumin 4.4 06/08/18 06/08/18 03:46 05:31 WBC 5.1 RBC 3.76 L Hgb 10.6 L Hct 31.3 L MCV 83.1 MCH 28.2 MCHC 34.0 RDW 17.2 Plt Count 125 L MPV 7.1 Neut % (Auto) 66.8 Lymph % (Auto) 13.3 Hanson % (Auto) 10.3 H Eos % (Auto) 9.3 H Baso % (Auto) 0.3 Neut # (Auto) 3.4 Lymph # (Auto) 0.7 L Hanson # (Auto) 0.5 Eos # (Auto) 0.5 H Baso # (Auto) 0.0 WBC Differential . Differential Comment Auto diff final PT 16.7 H INR 1.7 Sodium Potassium Chloride Carbon Dioxide Anion Gap BUN Creatinine Estimated GFR Random Glucose Calcium Phosphorus Magnesium Total Bilirubin AST ALT Alkaline Phosphatase Ammonia Total Protein Albumin - Procedures EXAM DATE: 06/06/2018 4:32 PM EDT AGE/SEX: 58 years / Male INDICATIONS: Patient with history of chronic kidney disease in need of non tunneled dialysis catheter CLINICAL DATA: This is the patient's initial encounter. Patient reports that signs and symptoms have been present for 1 week and indicates a pain score of 8/ 10. MEDICAL/SURGICAL HISTORY: Hepatitis C. Liver cirrhosis, CKD, CAD, A-Fib, HLD, HTN, COPD, MA, CHF, Raynauds syndrome Cholecystectomy. Aortic valve replacement, Knee surgery, CABG, Lung surgery, Back surgery COMPARISON: No prior exams available for comparison. FLUORO TIME (min): 0.1 IMAGE SERIES: 1 ACCESS SITE: Right internal jugular vein DEVICE(S): 14 Israeli double lumen X20CM Schon catheter . . PROCEDURE : 1. Ultrasound guided venipuncture. 2. Fluoroscopic guidance. 3. Central line placement. The risks, benefits and alternatives to the procedure were explained and verbal and written consent was obtained. The site was prepped in sterile fashion. Full sterile technique was used, including cap, mask, sterile gloves and gown and a large sterile sheet. Hand hygiene and 2% chlorhexidine prep was utilized per protocol for cutaneous antisepsis with appropriate dry time for site. Sterile gel and sterile probe cover were utilized for ultrasound guidance. The skin and subcutaneous tissues were infiltrated with local anesthetic solution. A suitable site above the vein was selected with ultrasound and fluoroscopic guidance. A small incision was made. The vein was accessed under direct ultrasound visualization using the micropuncture technique. The micropuncture set was exchanged for a 0.035 wire. The tract was dilated. The catheter was advanced into position under direct fluoroscopic visualization, and was advanced with the tip at the junction of the superior vena cava and rt atrium. The catheter was fixed in place with suture and a sterile dressing was applied. The patient tolerated the procedure well and there were no complications. CONCLUSION: 1. Uncomplicated line placement as above. Electronically signed by: Joe Garcia MD 06/07/2018 9:37 AM EDT Undergoing hemodialysis so far on and Assessment and Plan - Plan Mr. Boogie is a pleasant 58-year-old male with a history of hepatitis C on Harvoni, CKD who was admitted to the hospital after he had a blood work at the [place] which shows hypokalemia and worsening creatinine. Acute on chronic kidney disease Hyperkalemia Hyponatremia -Creatinine 2.5 --> 1.80 --> 1.90 ==> 2.2 ==> 2.9 ==> 3.7 NOW IS 4.26-- NOW 3.9 His baseline creatinine is about 1.4-1.6. -Is being given Lasix 80 mg IV twice daily as well as Zaroxolyn and ProAmatine -Potassium has improved. -Discussed with Nephrology on 06/03/2018. . -transfer patient to the main hospital. -Continue Midodrine, albumin and Octreotide. -May need at least transient dialysis. REMAINS CONFUSED CHECK AMMONIA NOW AND TOMORROW Acute renal failure status post chemo dialysis catheter placed on 95 Status post hemodialysis on 06-06 and repeat hemodialysis on 96 Hypokalemia replace with potassium bath during hemodialysis WILL GIVE PO POTASSIUM TODAY Paroxysmal Atrial fibrillation -Patient takes Atenolol at home. Continue Metoprolol 25mg BID. -[id number] score 0. Although Aspirin would be beneficial, given his liver cirrhosis, it maybe risky to start Aspirin. -Patient will discuss with his casting agent after hospitalization. Liver cirrhosis Hepatitis C COAGULOPATHY -Patient is currently on Harvoni. Abdominal ultrasound did not reveal enough ascites to drain. -[facility]. - Morphine for abdominal pain. -Ammonia level is increased will make sure he is on lactulose may have to add rifaximin and increase lactulose to 3 times daily-ammonia level is still increased will monitor Full code. INR is 1.7 due to liver disease. Will start patient on Heparin 5000 unit SQ Q12hrs for DVT prophylaxis. PT AND OT TO EVAL AND TREAT Code Status: FULL CODE Discussed Condition With: RN AND PT AND FAMILY Discharge Planning: PENDING IMPROVEMENT
[2018-06-08] MEDS: Torsemide 20 MG Tablet PO SCH ×2 (10:39→20:19)
[2018-06-08] MEDS: Nystatin 100,000 UNITS/GM Powder 15 GM Bottle TOPICAL SCH ×4 (10:40→20:21)
[2018-06-08] MEDS: Metoprolol Tartrate 50 MG Tablet PO SCH ×2 (10:40→20:19)
[2018-06-08] MEDS: Heparin - SQ 10,000 UNITS/ML Vial SQ SCH ×2 (10:40→20:19)
[2018-06-08] MEDS: metOLazone 5 MG Tablet PO SCH (10:41)
[2018-06-08] MEDS: rifAXIMin 550 MG Tablet PO SCH ×2 (11:22→23:27)
--- NOTE | 2018-06-08 15:58 | P.PNNP ---
Subjective Interval history: Patient feels tired Physical Exam Vital signs: Vital Signs 06/07/18 15:57 06/07/18 16:00 06/07/18 16:30 Temperature 98.0 F Pulse Rate 82 73 75 Respiratory Rate 12 12 10 L Blood Pressure 101/64 94/69 L 90/61 L 06/07/18 17:00 06/07/18 17:33 06/07/18 18:00 Temperature Pulse Rate 73 85 70 Respiratory Rate 8 L 7 L Blood Pressure 93/60 L 92/56 L 06/07/18 18:01 06/07/18 20:00 06/07/18 22:00 Temperature 97.4 F L Pulse Rate 76 72 98 H Respiratory Rate 11 L 14 Blood Pressure 97/68 L 87/59 L 06/08/18 00:00 06/08/18 02:00 06/08/18 04:00 Temperature 97.6 F 97.9 F Pulse Rate 85 77 87 Respiratory Rate 12 16 Blood Pressure 81/51 L 89/50 L 06/08/18 06:00 06/08/18 08:00 06/08/18 10:00 Temperature 99.0 F Pulse Rate 93 H 88 114 H Respiratory Rate 16 Blood Pressure 90/51 L 06/08/18 12:00 06/08/18 14:00 Temperature 98.2 F Pulse Rate 83 84 Respiratory Rate 14 Blood Pressure 119/62 Intake & Output 06/07/18 06/08/18 06/08/18 18:59 06:59 18:59 Intake Total 2115 / 2115 980.5 / 980.5 600 / 600 Output Total 2578 / 2578 600 / 600 Balance -463 / -463 380.5 / 380.5 600 / 600 Weight 92.6 kg Intake: IV 675 / 675 500.5 / 500.5 600 / 600 SandoSTATIN Inj 500 MCG In NS 475 / 475 500.5 / 500.5 500 / 500 Inj 500 ML @ 50 MCG/HR 50.05 mls/hr IV.CONT .Q10H SHALINI Rx#: [id number] Flexbumin 25% Inj 100 ML @ 60 200 / 200 100 / 100 mls/hr IV.SIG Q12H SHALINI Rx#: [id number] Oral 1440 / 1440 480 / 480 Output: Urine 578 / 578 Hemodialysis Amount 1999 / 1999 Urine Amount (Catheter) 600 / 600 Indwelling Urethral Catheter 600 / 600 Other: Date of Last Bowel Movement 06/07/18 06/07/18 06/08/18 # Bowel Movements 2 1 - Constitutional no acute distress - Routine HEENT Exam Eye: Present: EOMI - Routine Neck Exam Present: supple - Routine Respiratory Exam Present: decreased breath sounds (At bases) - Routine Cardiovascular Exam Present: S1, S2, irregular rhythm - Routine Abdominal Exam Present: soft, distended - Routine Extremities Exam Present: edema - Urinary Catheter Management Indwelling Urethral Catheter Cath placed during this visit: yes Reason for continuing: Acute urinary retention Insertion date: 06/04/18 Insertion time: 18:15 Assessment and Plan - Assessment (1) Acute renal failure superimposed on stage 3 chronic kidney disease Code(s): N17.9 - Acute kidney failure, unspecified; N18.3 - Chronic kidney disease, stage 3 (moderate) Status: Acute (2) Hyponatremia Code(s): E87.1 - Hypo-osmolality and hyponatremia Status: Acute (3) Cirrhosis Code(s): K74.60 - Unspecified cirrhosis of liver Status: Acute - Plan Worsening azotemia: Creatinine declined after dialysis Urine sodium low Suspect hepatorenal - patient with HCV cirrhosis and on transplant list [place] Remains on dialysis next dialysis is tomorrow At this time will continue with albumin infusion, add octreotide and midodrine management. Replace potassium hemodialysis Monday
[2018-06-08] MEDS: Chlorhexidine Gluconate 2% 1 Pack (2 Cloths) TOPICAL SCH (20:20)
[2018-06-08 23:44] LABS: ABG Base Excess -0.1 mmol/L (-2-2); ABG PCO2 45 mmHg (38-42); ABG PO2 42 mmHG (61-120)
[2018-06-09 00:48] LABS: Baso % (Auto) 0.8 % (0.0-2.0); Eos # (Auto) 0.5 th/mm3 (0.0-0.4); Eos % (Auto) 9.6 % (0.0-4.0); Hematocrit 32.8 % (39.0-51.0); Hemoglobin 10.6 gm/dL (13.0-17.0); Lymph # (Auto) 0.6 th/mm3 (1.0-4.8); Lymph % (Auto) 11.2 % (9.0-44.0); Mean Corpuscular HGB Conc 32.3 % (32.0-36.0); Mean Corpuscular Hemoglobin 27.8 pg (27.0-34.0); Mean Platelet Volume 7.3 fL (7.0-11.0); Mono # (Auto) 0.7 th/mm3 (0.0-0.9); Mono % (Auto) 12.5 % (0.0-8.0); Neut # (Auto) 3.5 th/mm3 (1.8-7.7); Neut % (Auto) 65.9 % (16.0-70.0); Platelet Count 116 th/mm3 (150-450); Red Blood Count 3.81 mil/mm3 (4.50-5.90); Red Cell Distribution Width 17.6 % (11.6-17.2); White Blood Count 5.3 th/mm3 (4.0-11.0)
[2018-06-09 01:04] LABS: Albumin 4.9 g/dL (3.4-5.0); Anion Gap 9 meq/L (5-15); Aspartate Aminotransferase 23 U/L (15-37); Blood Urea Nitrogen 31 mg/dL (7-18); Calcium 8.7 mg/dL (8.5-10.1); Chloride 101 meq/L (98-107); Glomerular Filtration Rate 27 mL/min (>89); Glucose,Random 85 mg/dL (74-106); Magnesium 1.7 mg/dL (1.5-2.5); Potassium 3.6 meq/L (3.5-5.1); Sodium 139 meq/L (136-145)
[2018-06-09 01:05] LABS: Alanine Aminotransferase 20 U/L (12-78)
[2018-06-09 01:07] LABS: Alkaline Phosphatase 51 U/L (45-117); Total Protein 7.5 g/dL (6.4-8.2)
[2018-06-09 02:30] LABS: ABG Base Excess 0.8 mmol/L (-2-2); ABG PCO2 49 mmHg (38-42); ABG PO2 62 mmHG (61-120)
[2018-06-09] MEDS: Chlorhexidine Gluconate 2% 1 Pack (2 Cloths) TOPICAL SCH (04:00)
[2018-06-09] MEDS: Morphine Sulfate 15 MG IR Tablet PO PRN ×5 (04:20→23:49)
--- NOTE | 2018-06-09 04:22 | XR ---
EXAM DATE: 06/09/2018 4:08 AM EDT AGE/SEX: 58 years / Male INDICATIONS: Shortness of breath, possible pulmonary disease. CLINICAL DATA: This is the patient's subsequent encounter. Patient reports that signs and symptoms h ave been present for 3 days and indicates a pain score of Nonresponsive. MEDICAL/SURGICAL HISTORY: Congestive heart failure. Cirrhosis. Chronic obstructive pulmonary disease. A-fib. CAD. Hypertension. Hep C.Hyperlipidemia. Myocardial infarct. Raynaud's syndrome. Ch olecystectomy. CABG. AVR. COMPARISON: [facility], CHEST 1V SINGLE AP, 04/27/2018. . FINDINGS: Large bore right central line tip projects in the right atrium. No evidence of pneumothorax. There is hazy opacity in the right mid and lower lung with loss of delineation of the right hemidiaphragm sug gesting pleural effusion. The left lung is clear. The heart is similar in size and configuration to p rior. Evidence of prior median sternotomy. CONCLUSION: 1. Hazy opacity in the right mid and lower lung suggests pleural effusion with or without infiltrate . 2. Large bore central line tip projects in the right atrium. Electronically signed by: Afshin Whitfield MD 06/09/2018 4:21 AM EDT
[2018-06-09] MEDS: Albumin Human 25% Inj 100 ML IV.SIG SCH ×4 (05:41→17:46)
[2018-06-09] MEDS: Octreotide Inj 500 MCG in Sodium Chlor 0.9% Inj 500 ML IV.CONT SCH ×3 (09:41→21:00)
[2018-06-09] MEDS: Torsemide 20 MG Tablet PO SCH ×2 (10:00→20:26)
[2018-06-09] MEDS: Heparin - SQ 10,000 UNITS/ML Vial SQ SCH ×2 (10:57→20:26)
--- NOTE | 2018-06-09 11:42 | P.PNNP ---
Subjective Interval history: Patient required oxygen and BiPAP overnight Physical Exam Vital signs: Vital Signs 06/08/18 12:00 06/08/18 14:00 06/08/18 16:00 Temperature 98.2 F 98.5 F Pulse Rate 83 84 133 H Respiratory Rate 14 18 Blood Pressure 119/62 99/71 L Pulse Oximetry 06/08/18 18:00 06/08/18 20:00 06/08/18 22:00 Temperature 98.9 F Pulse Rate 88 99 H 87 Respiratory Rate 14 Blood Pressure 120/73 Pulse Oximetry 93 L 06/09/18 00:00 06/09/18 00:27 06/09/18 02:00 Temperature 98.6 F Pulse Rate 76 75 Respiratory Rate 16 Blood Pressure 105/71 Pulse Oximetry 93 L 91 L 06/09/18 02:41 06/09/18 04:00 06/09/18 06:00 Temperature 98.4 F Pulse Rate 89 107 H Respiratory Rate 16 Blood Pressure 132/80 Pulse Oximetry 96 93 L Intake & Output 06/08/18 06/09/18 06/09/18 18:59 06:59 18:59 Intake Total 1080 / 1080 1180.5 / 1180.5 700 / 700 Output Total 650 / 650 275 / 275 3000 / 3000 Balance 430 / 430 905.5 / 905.5 -2300 / -2300 Weight 94.9 kg Intake: IV 600 / 600 700.5 / 700.5 700 / 700 SandoSTATIN Inj 500 MCG In NS 500 / 500 500.5 / 500.5 500 / 500 Inj 500 ML @ 50 MCG/HR 50.05 mls/hr IV.CONT .Q10H SHALINI Rx#: [id number] Flexbumin 25% Inj 100 ML @ 60 100 / 100 200 / 200 200 / 200 mls/hr IV.SIG Q12H SHALINI Rx#: [id number] Oral 480 / 480 480 / 480 Output: Stool 300 / 300 Hemodialysis Amount 3000 / 3000 Urine Amount (Catheter) 350 / 350 275 / 275 Indwelling Urethral Catheter 350 / 350 275 / 275 Other: Date of Last Bowel Movement 06/08/18 06/09/18 06/09/18 # Bowel Movements 1 - Constitutional no acute distress - Routine Neck Exam Present: supple - Routine Respiratory Exam Present: decreased breath sounds - Routine Cardiovascular Exam Present: tachycardia - Routine Abdominal Exam Present: soft, distended - Routine Extremities Exam Present: edema - Urinary Catheter Management Indwelling Urethral Catheter Cath placed during this visit: yes Reason for continuing: Acute urinary retention Insertion date: 06/04/18 Insertion time: 18:15 Assessment and Plan - Assessment (1) Acute renal failure superimposed on stage 3 chronic kidney disease Code(s): N17.9 - Acute kidney failure, unspecified; N18.3 - Chronic kidney disease, stage 3 (moderate) Status: Acute (2) Hyponatremia Code(s): E87.1 - Hypo-osmolality and hyponatremia Status: Acute (3) Cirrhosis Code(s): K74.60 - Unspecified cirrhosis of liver Status: Acute - Plan Worsening azotemia: Creatinine was elevated and ended up on hemodialysis Urine sodium low Suspect hepatorenal - patient with HCV cirrhosis and [place] transplant [place] Patient was seen dialysis about 3 L were removed patient oxygen requirement remains high Has peripheral edema Patient has advanced liver disease and renal failure
--- NOTE | 2018-06-09 11:44 | P.PNIM ---
Subjective Interval history: Mr. Boogie is a pleasant 58-year-old male with a history of liver cirrhosis, chronic kidney disease, hepatitis C on Harvoni, aortic valve replacement who presented to the emergency department after he had a routine blood work that shows elevated potassium decreased sodium and elevated creatinine. Patient denies any chest pain, shortness of breath, fever or chills. However he does report increased abdominal distention and pain. He is on liver transplant list. He follows up with ID physicians. On arrival patient 's BMP shows sodium 128, potassium 5.7, BUN 56 and creatinine 2.5. Patient was given insulin and dextrose as well as calcium. Although his potassium improved to 4.9, in the morning on 05/30/2018 his potassium went back up again at 5.8. Creatinine has remained 2.5 despite IV hydration. Past medical history: Congenital heart disease with bicuspid aortic valve status post aortic valve replacement, liver cirrhosis, hepatitis C Past surgical history: Cholecystectomy, knee surgery, aortic valve replacement, lung surgery, CABG, back surgery Social history: Patient denies using tobacco, alcohol, illicit drugs. Family history. Mother, brother and sisters with diabetes mellitus. 8-30 Follow up for hepatorenal syndrome in a patient with Hep C, Cirrhosis. Patient is doing well. However, he complains of significant abdominal pain. No fever, chills. 8-31 Follow up for hepatorenal syndrome in a patient with Hep C, Cirrhosis. Patient is resting in bed, no acute concerns. No fever, chills. No CP, SOB. He had an episode of Afib. Apparently, he has had intermittent Afib before as well. He has been evaluated by a Liberal Arts Teacher before. 9-1 Follow up for hepatorenal syndrome in a patient with Hep C, Cirrhosis. Patient reports anasarca and significant pain in his lower extremity joints. No fever, chills. 9-2 Follow up for hepatorenal syndrome. Patient complains of anasarca and difficulty initiating urination. No CP, fever, chills. 9-3 Follow-up for tunnel syndrome. Patient is currently doing well. He actually feels somewhat better today. Per nursing, however, he is not urinating and bladder scan shows no significant amount of urine in the bladder. This indicates the patient's renal function is getting worse and he is becoming anuric. We initiated a transfer to the main hospital yesterday. 06-05 PATIENT HAS BEEN TRANSFERRED FROM [facility] FOR RENAL EVALUATIONS REMAINS CONFUSED WILL CHECK AMMONIA LEVEL TODAY AND TOMORROW PT AND OT TO EVAL AND TREAT HAD ABG DONE TODAY LOW BICARB REMAINS SOMEWHAT CONFUSED STILL DW RN AND PT AND FAMILY 9-5 IS IN ATRIAL FLUTTER-TACHYCARDIA LESS CONFUSED PT AND OT DW RN AND PT AND WILL TRY TO IMPROVE HEART RATE AM LABS -6 STARTED ON hemodialysis yesterday Had catheter placed on 95 for dialysis Feeling little better today Less confused Heart rate is better Having dialysis again today Hypokalemia is being replaced by potassium bath Discussed with patient and RN and trigonometry teacher 9-7 HAD DIALYSIS ON 06-06 AND 06-07 LESS SWELLING MEDICATIONS ADJUSTED BY NEPHROLOGY FAMILY AT BEDSIDE QUESTIONS ANSWERED - HAVING HD TODAY LESS SWELLING MEDS BEING ADJUSTED DW RN AND PT Physical Exam Vital signs: Vital Signs 06/08/18 12:00 06/08/18 14:00 06/08/18 16:00 Temperature 98.2 F 98.5 F Pulse Rate 83 84 133 H Respiratory Rate 14 18 Blood Pressure 119/62 99/71 L Pulse Oximetry 06/08/18 18:00 06/08/18 20:00 06/08/18 22:00 Temperature 98.9 F Pulse Rate 88 99 H 87 Respiratory Rate 14 Blood Pressure 120/73 Pulse Oximetry 93 L 06/09/18 00:00 06/09/18 00:27 06/09/18 02:00 Temperature 98.6 F Pulse Rate 76 75 Respiratory Rate 16 Blood Pressure 105/71 Pulse Oximetry 93 L 91 L 06/09/18 02:41 06/09/18 04:00 06/09/18 06:00 Temperature 98.4 F Pulse Rate 89 107 H Respiratory Rate 16 Blood Pressure 132/80 Pulse Oximetry 96 93 L Intake & Output 06/08/18 06/09/18 06/09/18 18:59 06:59 18:59 Intake Total 1080 / 1080 1180.5 / 1180.5 700 / 700 Output Total 650 / 650 275 / 275 3000 / 3000 Balance 430 / 430 905.5 / 905.5 -2300 / -2300 Weight 94.9 kg Intake: IV 600 / 600 700.5 / 700.5 700 / 700 SandoSTATIN Inj 500 MCG In NS 500 / 500 500.5 / 500.5 500 / 500 Inj 500 ML @ 50 MCG/HR 50.05 mls/hr IV.CONT .Q10H SHALINI Rx#: [id number] Flexbumin 25% Inj 100 ML @ 60 100 / 100 200 / 200 200 / 200 mls/hr IV.SIG Q12H SHALINI Rx#: [id number] Oral 480 / 480 480 / 480 Output: Stool 300 / 300 Hemodialysis Amount 3000 / 3000 Urine Amount (Catheter) 350 / 350 275 / 275 Indwelling Urethral Catheter 350 / 350 275 / 275 Other: Date of Last Bowel Movement 06/08/18 06/09/18 06/09/18 # Bowel Movements 1 Narrative: GENERAL: Alert, Oriented x 3, NAD. Better oriented today SKIN: Warm and dry. Anasarca present HEAD: Normocephalic. Atraumatic EYES: No scleral icterus. No injection or drainage. NECK: Supple, trachea midline. No JVD or lymphadenopathy. CARDIOVASCULAR: Regular rate and rhythm without murmurs, gallops, or rubs. S1- S2 no S3 or S4 RESPIRATORY: Breath sounds equal bilaterally. No accessory muscle use. GASTROINTESTINAL: Abdomen distended, nontender to palpation good bowel sounds throughout soft nontender MUSCULOSKELETAL: No cyanosis. LESS edema in upper and lower ext. +1 in upper extremity and lower extremity bilaterally BACK: Nontender without obvious deformity. No CVA tenderness. Insight and judgment is limited. Mood and behavior is somewhat appropriate. - Urinary Catheter Management Indwelling Urethral Catheter Cath placed during this visit: yes Reason for continuing: Acute urinary retention Insertion date: 06/04/18 Insertion time: 18:15 Results - Labs CBC & Chem 7: 06/09/18 00:22 06/09/18 00:22 Laboratory Results - last 24 hr 06/08/18 06/09/18 06/09/18 23:25 00:22 00:22 WBC 5.3 RBC 3.81 L Hgb 10.6 L Hct 32.8 L MCV 86.0 MCH 27.8 MCHC 32.3 RDW 17.6 H Plt Count 116 L MPV 7.3 Neut % (Auto) 65.9 Lymph % (Auto) 11.2 [place] % (Auto) 12.5 H Eos % (Auto) 9.6 H Baso % (Auto) 0.8 Neut # (Auto) 3.5 Lymph # (Auto) 0.6 L [place] # (Auto) 0.7 Eos # (Auto) 0.5 H Baso # (Auto) 0.0 WBC Differential . Differential Comment Auto diff final Puncture Site Left radial Patient Temperature 98.6 O2 Saturation 72 L* ABG pH 7.36 L ABG pCO2 45 H ABG pO2 42 L* ABG HCO3 25 ABG O2 Content 10.8 L ABG Base Excess -0.1 ABG Methemoglobin 1.2 Reagan Test Present Hemoglobin 10.7 L Carboxyhemoglobin 1.5 O2 Delivery Device Nasal cannula Liter Flow 2.00 Vent Setting Inspired O2 21 Critical Value Yes Sodium 139 Potassium 3.6 Chloride 101 Carbon Dioxide 29.0 Anion Gap 9 BUN 31 H Creatinine 2.47 H Estimated GFR 27 L Random Glucose 85 Calcium 8.7 Phosphorus 3.0 Magnesium 1.7 Total Bilirubin 2.2 H AST 23 ALT 20 Alkaline Phosphatase 51 Ammonia Total Protein 7.5 Albumin 4.9 06/09/18 06/09/18 02:13 05:17 WBC RBC Hgb Hct MCV MCH MCHC RDW Plt Count MPV Neut % (Auto) Lymph % (Auto) [place] % (Auto) Eos % (Auto) Baso % (Auto) Neut # (Auto) Lymph # (Auto) [place] # (Auto) Eos # (Auto) Baso # (Auto) WBC Differential Differential Comment Puncture Site Right radial Patient Temperature 98.6 O2 Saturation 87 L* ABG pH 7.34 L ABG pCO2 49 H ABG pO2 62 ABG HCO3 26 ABG O2 Content 12.3 ABG Base Excess 0.8 ABG Methemoglobin 1.5 Reagan Test Present Hemoglobin 10.0 L Carboxyhemoglobin 1.6 O2 Delivery Device Bipap Liter Flow Vent Setting 12/5 Inspired O2 40 Critical Value Yes Sodium Potassium Chloride Carbon Dioxide Anion Gap BUN Creatinine Estimated GFR Random Glucose Calcium Phosphorus Magnesium Total Bilirubin AST ALT Alkaline Phosphatase Ammonia 26 Total Protein Albumin - Imaging Impressions Chest X-Ray 06/09/18 00:00 CONCLUSION: 1. Hazy opacity in the right mid and lower lung suggests pleural effusion with or without infiltrate. 2. Large bore central line tip projects in the right atrium. - Procedures EXAM DATE: 06/06/2018 4:32 PM EDT AGE/SEX: 58 years / Male INDICATIONS: Patient with history of chronic kidney disease in need of non tunneled dialysis catheter CLINICAL DATA: This is the patient's initial encounter. Patient reports that signs and symptoms have been present for 1 week and indicates a pain score of 8/ 10. MEDICAL/SURGICAL HISTORY: Hepatitis C. Liver cirrhosis, CKD, CAD, A-Fib, HLD, HTN, COPD, [place], CHF, Raynauds syndrome Cholecystectomy. Aortic valve replacement, Knee surgery, CABG, Lung surgery, Back surgery COMPARISON: No prior exams available for comparison. FLUORO TIME (min): 0.1 IMAGE SERIES: 1 ACCESS SITE: Right internal jugular vein DEVICE(S): 14 Mosotho double lumen X20CM Schon catheter . . PROCEDURE : 1. Ultrasound guided venipuncture. 2. Fluoroscopic guidance. 3. Central line placement. The risks, benefits and alternatives to the procedure were explained and verbal and written consent was obtained. The site was prepped in sterile fashion. Full sterile technique was used, including cap, mask, sterile gloves and gown and a large sterile sheet. Hand hygiene and 2% chlorhexidine prep was utilized per protocol for cutaneous antisepsis with appropriate dry time for site. Sterile gel and sterile probe cover were utilized for ultrasound guidance. The skin and subcutaneous tissues were infiltrated with local anesthetic solution. A suitable site above the vein was selected with ultrasound and fluoroscopic guidance. A small incision was made. The vein was accessed under direct ultrasound visualization using the micropuncture technique. The micropuncture set was exchanged for a 0.035 wire. The tract was dilated. The catheter was advanced into position under direct fluoroscopic visualization, and was advanced with the tip at the junction of the superior vena cava and rt atrium. The catheter was fixed in place with suture and a sterile dressing was applied. The patient tolerated the procedure well and there were no complications. CONCLUSION: 1. Uncomplicated line placement as above. Electronically signed by: Joe Garcia MD 06/07/2018 9:37 AM EDT Undergoing hemodialysis so far on and 96 AND 06-09 Assessment and Plan - Plan Mr. oBogie is a pleasant 58-year-old male with a history of hepatitis C on Harvoni, CKD who was admitted to the hospital after he had a blood work at the ID which shows hypokalemia and worsening creatinine. Acute on chronic kidney disease Hyperkalemia Hyponatremia -Creatinine 2.5 --> 1.80 --> 1.90 ==> 2.2 ==> 2.9 ==> 3.7 NOW IS 4.26-- NOW 3.9 His baseline creatinine is about 1.4-1.6. -Is being given Lasix 80 mg IV twice daily as well as Zaroxolyn and ProAmatine -Potassium has improved. -Discussed with Nephrology on 06/03/2018. . -transfer patient to the main hospital. -Continue Midodrine, albumin and Octreotide. -May need at least transient dialysis. REMAINS CONFUSED CHECK AMMONIA NOW AND TOMORROW Acute renal failure status post chemo dialysis catheter placed on 95 Status post hemodialysis on 06-06 and repeat hemodialysis on 96 Hypokalemia replace with potassium bath during hemodialysis WILL GIVE PO POTASSIUM TODAY Paroxysmal Atrial fibrillation -Patient takes Atenolol at home. Continue Metoprolol 25mg BID. -[id number] score 0. Although Aspirin would be beneficial, given his liver cirrhosis, it maybe risky to start Aspirin. -Patient will discuss with his machine precision etcher after hospitalization. Liver cirrhosis Hepatitis C COAGULOPATHY -Patient is currently on Harvoni. Abdominal ultrasound did not reveal enough ascites to drain. -[facility] - Morphine for abdominal pain. -Ammonia level is increased will make sure he is on lactulose may have to add rifaximin and increase lactulose to 3 times daily-ammonia level is still increased will monitor Full code. INR is 1.7 due to liver disease. Will start patient on Heparin 5000 unit SQ Q12hrs for DVT prophylaxis. PT AND OT TO EVAL AND TREAT Code Status: FULL CODE Discussed Condition With: RN AND PT Discharge Planning: PENDING IMPROVEMENT
[2018-06-09] MEDS: rifAXIMin 550 MG Tablet PO SCH ×2 (11:58→22:06)
[2018-06-09] MEDS: metOLazone 5 MG Tablet PO SCH (11:58)
[2018-06-09] MEDS: Nystatin 100,000 UNITS/GM Powder 15 GM Bottle TOPICAL SCH ×4 (11:58→20:27)
[2018-06-09] MEDS: Metoprolol Tartrate 50 MG Tablet PO SCH ×2 (11:59→20:26)
[2018-06-09] MEDS: Heparin Central Flush 100 UNIT/ML 5 ML Vial IV.FLUSH SCH (20:27)
[2018-06-09 22:02] LABS: ABG Base Excess 1.8 mmol/L (-2-2); ABG PCO2 54 mmHg (38-42); ABG PO2 33 mmHG (61-120)
[2018-06-09] MEDS: oxyCODONE/Acetaminophen 10/325 Tablet PO PRN (22:05)
[2018-06-10] MEDS: Morphine Sulfate 15 MG IR Tablet PO PRN (04:25)
[2018-06-10] MEDS: Octreotide Inj 500 MCG in Sodium Chlor 0.9% Inj 500 ML IV.CONT SCH ×4 (04:47→17:48)
[2018-06-10] MEDS: Albumin Human 25% Inj 100 ML IV.SIG SCH ×2 (05:48→17:00)
[2018-06-10 06:04] LABS: Baso % (Auto) 0.3 % (0.0-2.0); Eos # (Auto) 0.7 th/mm3 (0.0-0.4); Eos % (Auto) 13.2 % (0.0-4.0); Hematocrit 28.4 % (39.0-51.0); Hemoglobin 9.6 gm/dL (13.0-17.0); Lymph # (Auto) 0.6 th/mm3 (1.0-4.8); Lymph % (Auto) 11.7 % (9.0-44.0); Mean Corpuscular HGB Conc 33.8 % (32.0-36.0); Mean Corpuscular Hemoglobin 28.5 pg (27.0-34.0); Mean Corpuscular Volume 84.4 fL (80.0-100.0); Mean Platelet Volume 7.4 fL (7.0-11.0); Mono # (Auto) 0.6 th/mm3 (0.0-0.9); Mono % (Auto) 11.4 % (0.0-8.0); Neut # (Auto) 3.5 th/mm3 (1.8-7.7); Neut % (Auto) 63.4 % (16.0-70.0); Platelet Count 106 th/mm3 (150-450); Red Blood Count 3.37 mil/mm3 (4.50-5.90); Red Cell Distribution Width 17.8 % (11.6-17.2); White Blood Count 5.5 th/mm3 (4.0-11.0)
[2018-06-10] MEDS: oxyCODONE/Acetaminophen 10/325 Tablet PO PRN (06:25)
[2018-06-10 06:30] LABS: Albumin 5.1 g/dL (3.4-5.0); Anion Gap 10 meq/L (5-15); Aspartate Aminotransferase 22 U/L (15-37); Blood Urea Nitrogen 22 mg/dL (7-18); Calcium 8.5 mg/dL (8.5-10.1); Carbon Dioxide 27.3 meq/L (21.0-32.0); Chloride 100 meq/L (98-107); Glomerular Filtration Rate 22 mL/min (>89); Glucose,Random 89 mg/dL (74-106); Magnesium 1.8 mg/dL (1.5-2.5); Potassium 3.4 meq/L (3.5-5.1); Sodium 137 meq/L (136-145)
[2018-06-10 06:35] LABS: Alanine Aminotransferase 18 U/L (12-78); Alkaline Phosphatase 44 U/L (45-117); Phosphorus 2.8 mg/dL (2.5-4.9); Total Protein 7.5 g/dL (6.4-8.2)
[2018-06-10] MEDS ORDERED: Potassium Chloride 25 MEQ Effervescent Tablet PO ONE (06:37)
[2018-06-10] MEDS ORDERED: Sodium Chlor 0.9% Inj 500 ML IV.SIG SCH (07:00)
[2018-06-10 07:06] LABS: ABG Base Excess 1.8 mmol/L (-2-2); ABG PCO2 53 mmHg (38-42); ABG PO2 41 mmHG (61-120)
[2018-06-10] MEDS: metOLazone 5 MG Tablet PO SCH (08:36)
[2018-06-10] MEDS: Heparin - SQ 10,000 UNITS/ML Vial SQ SCH ×2 (08:36→20:15)
[2018-06-10] MEDS: Nystatin 100,000 UNITS/GM Powder 15 GM Bottle TOPICAL SCH ×4 (08:39→20:15)
[2018-06-10] MEDS: Metoprolol Tartrate 50 MG Tablet PO SCH ×2 (08:39→20:15)
[2018-06-10] MEDS: Heparin Central Flush 100 UNIT/ML 5 ML Vial IV.FLUSH SCH (10:06)
[2018-06-10] MEDS: Torsemide 20 MG Tablet PO SCH (10:06)
--- NOTE | 2018-06-10 11:37 | P.PNNP ---
Subjective Interval history: Patient is on BiPAP had low blood pressure was confused Physical Exam Vital signs: Vital Signs 06/09/18 12:00 06/09/18 14:00 06/09/18 16:00 Temperature 98.4 F 98.4 F Pulse Rate 87 70 74 Respiratory Rate 16 14 Blood Pressure 109/62 110/62 Pulse Oximetry 06/09/18 18:00 06/09/18 20:00 06/09/18 22:00 Temperature 98.9 F Pulse Rate 74 80 88 Respiratory Rate 15 Blood Pressure 101/62 Pulse Oximetry 98 06/10/18 00:00 06/10/18 00:21 06/10/18 02:00 Temperature 98.6 F Pulse Rate 66 68 Respiratory Rate 16 Blood Pressure 93/57 L Pulse Oximetry 94 L 96 06/10/18 04:00 06/10/18 04:29 06/10/18 06:00 Temperature 98.7 F Pulse Rate 97 H 67 Respiratory Rate 17 Blood Pressure 100/65 Pulse Oximetry 96 96 06/10/18 08:00 06/10/18 10:00 Temperature 97.4 F L Pulse Rate 57 L 54 L Respiratory Rate 12 Blood Pressure 93/56 L Pulse Oximetry Intake & Output 06/09/18 06/10/18 06/10/18 18:59 06:59 18:59 Intake Total 1100 / 1100 1680 / 1680 1000 / 1000 Output Total 3000 / 3000 375 / 375 Balance -1900 / -1900 1305 / 1305 1000 / 1000 Weight 94.1 kg Intake: IV 1100 / 1100 700 / 700 1000 / 1000 SandoSTATIN Inj 500 MCG In NS 900 / 900 500 / 500 500 / 500 Inj 500 ML @ 50 MCG/HR 50.05 mls/hr IV.CONT .Q10H SHALINI Rx#: [id number] Flexbumin 25% Inj 100 ML @ 60 200 / 200 200 / 200 mls/hr IV.SIG Q12H SHALINI Rx#: [id number] NS Inj 500 ML @ Wide Open IV. 500 / 500 SIG BOLUS SHALINI Rx#:[id number] Oral 980 / 980 Output: Stool 300 / 300 Hemodialysis Amount 3000 / 3000 Urine Amount (Catheter) 75 / 75 Indwelling Urethral Catheter 75 / 75 Other: Date of Last Bowel Movement 06/09/18 06/10/18 06/10/18 # Bowel Movements 2 # Incontinent Bowel Movements 1 - Constitutional mild distress - Routine HEENT Exam Head: Present: normocephalic - Routine Respiratory Exam Present: decreased breath sounds - Routine Cardiovascular Exam Present: RRR - Routine Abdominal Exam Present: soft, normoactive bowel sounds, distended - Routine Extremities Exam Present: edema - Urinary Catheter Management Indwelling Urethral Catheter Cath placed during this visit: yes Reason for continuing: Acute urinary retention Insertion date: 06/04/18 Insertion time: 18:15 Assessment and Plan - Assessment (1) Acute renal failure superimposed on stage 3 chronic kidney disease Code(s): N17.9 - Acute kidney failure, unspecified; N18.3 - Chronic kidney disease, stage 3 (moderate) Status: Acute (2) Hyponatremia Code(s): E87.1 - Hypo-osmolality and hyponatremia Status: Acute (3) Cirrhosis Code(s): K74.60 - Unspecified cirrhosis of liver Status: Acute - Plan Worsening azotemia: Creatinine was elevated and ended up on hemodialysis Urine sodium low Suspect hepatorenal - patient with HCV cirrhosis and on transplant list at [place] Fluid bolus was given diuretics and then stop Patient had dialysis about 3 L were removed patient oxygen requirement remains high on BiPAP Has peripheral edema Patient has advanced liver disease and renal failure Poor prognosis he may end up on ventilator as dialysis failed to improve his situation Now with low blood pressure and BiPAP
[2018-06-10] MEDS: rifAXIMin 550 MG Tablet PO SCH ×2 (11:55→22:58)
--- NOTE | 2018-06-10 12:26 | P.PNIM ---
Subjective Interval history: Mr. Boogie is a pleasant 58-year-old male with a history of liver cirrhosis, chronic kidney disease, hepatitis C on Harvoni, aortic valve replacement who presented to the emergency department after he had a routine blood work that shows elevated potassium decreased sodium and elevated creatinine. Patient denies any chest pain, shortness of breath, fever or chills. However he does report increased abdominal distention and pain. He is on liver transplant list. He follows up with [facility]. On arrival patient 's BMP shows sodium 128, potassium 5.7, BUN 56 and creatinine 2.5. Patient was given insulin and dextrose as well as calcium. Although his potassium improved to 4.9, in the morning on 05/30/2018 his potassium went back up again at 5.8. Creatinine has remained 2.5 despite IV hydration. Past medical history: Congenital heart disease with bicuspid aortic valve status post aortic valve replacement, liver cirrhosis, hepatitis C Past surgical history: Cholecystectomy, knee surgery, aortic valve replacement, lung surgery, CABG, back surgery Social history: Patient denies using tobacco, alcohol, illicit drugs. Family history. Mother, brother and sisters with diabetes mellitus. 8-30 Follow up for hepatorenal syndrome in a patient with Hep C, Cirrhosis. Patient is doing well. However, he complains of significant abdominal pain. No fever, chills. 8-31 Follow up for hepatorenal syndrome in a patient with Hep C, Cirrhosis. Patient is resting in bed, no acute concerns. No fever, chills. No CP, SOB. He had an episode of Afib. Apparently, he has had intermittent Afib before as well. He has been evaluated by a Upsetting Machine Operator before. 9-1 Follow up for hepatorenal syndrome in a patient with Hep C, Cirrhosis. Patient reports anasarca and significant pain in his lower extremity joints. No fever, chills. 9-2 Follow up for hepatorenal syndrome. Patient complains of anasarca and difficulty initiating urination. No CP, fever, chills. 9-3 Follow-up for tunnel syndrome. Patient is currently doing well. He actually feels somewhat better today. Per nursing, however, he is not urinating and bladder scan shows no significant amount of urine in the bladder. This indicates the patient's renal function is getting worse and he is becoming anuric. We initiated a transfer to the main hospital yesterday. - PATIENT HAS BEEN TRANSFERRED FROM [facility] FOR RENAL EVALUATIONS REMAINS CONFUSED WILL CHECK AMMONIA LEVEL TODAY AND TOMORROW PT AND OT TO EVAL AND TREAT HAD ABG DONE TODAY LOW BICARB REMAINS SOMEWHAT CONFUSED STILL DW RN AND PT AND FAMILY 9-5 IS IN ATRIAL FLUTTER-TACHYCARDIA LESS CONFUSED PT AND OT DW RN AND PT AND WILL TRY TO IMPROVE HEART RATE AM LABS -6 STARTED ON hemodialysis yesterday Had catheter placed on 95 for dialysis Feeling little better today Less confused Heart rate is better Having dialysis again today Hypokalemia is being replaced by potassium bath Discussed with patient and RN and dialysis social worker 9-7 HAD DIALYSIS ON 06-06 AND 06-07 LESS SWELLING MEDICATIONS ADJUSTED BY NEPHROLOGY FAMILY AT BEDSIDE QUESTIONS ANSWERED - HAVING HD TODAY LESS SWELLING MEDS BEING ADJUSTED DW RN AND PT 9- REMAINS ON BIPAP LESS SWELLING BECAME HYPOTENSIVE EARLIER TODAY GIVEN FLUID BOLUS MEDS ADJUSTED BY NEPHROLOGY HOPE DOES NOT HAVE TO GO ON VENT HAD HD YESTERDAY BUT IS STILL SOB WILL CONSULT PULMONARY MAY NEED SPONGE BUFFER Physical Exam Vital signs: Vital Signs 06/09/18 14:00 06/09/18 16:00 06/09/18 18:00 Temperature 98.4 F Pulse Rate 70 74 74 Respiratory Rate 14 Blood Pressure 110/62 Pulse Oximetry 06/09/18 20:00 06/09/18 22:00 06/10/18 00:00 Temperature 98.9 F 98.6 F Pulse Rate 80 88 66 Respiratory Rate 15 16 Blood Pressure 101/62 93/57 L Pulse Oximetry 98 94 L 06/10/18 00:21 06/10/18 02:00 06/10/18 04:00 Temperature 98.7 F Pulse Rate 68 97 H Respiratory Rate 17 Blood Pressure 100/65 Pulse Oximetry 96 96 06/10/18 04:29 06/10/18 06:00 06/10/18 08:00 Temperature 97.4 F L Pulse Rate 67 57 L Respiratory Rate 12 Blood Pressure 93/56 L Pulse Oximetry 96 06/10/18 10:00 Temperature Pulse Rate 54 L Respiratory Rate Blood Pressure Pulse Oximetry Intake & Output 06/09/18 06/10/18 06/10/18 18:59 06:59 18:59 Intake Total 1100 / 1100 1680 / 1680 1000 / 1000 Output Total 3000 / 3000 375 / 375 Balance -1900 / -1900 1305 / 1305 1000 / 1000 Weight 94.1 kg Intake: IV 1100 / 1100 700 / 700 1000 / 1000 SandoSTATIN Inj 500 MCG In NS 900 / 900 500 / 500 500 / 500 Inj 500 ML @ 50 MCG/HR 50.05 mls/hr IV.CONT .Q10H SHALINI Rx#: [id number] Flexbumin 25% Inj 100 ML @ 60 200 / 200 200 / 200 mls/hr IV.SIG Q12H SHALINI Rx#: [id number] NS Inj 500 ML @ Wide Open IV. 500 / 500 SIG BOLUS SHALINI Rx#:[id number] Oral 980 / 980 Output: Stool 300 / 300 Hemodialysis Amount 3000 / 3000 Urine Amount (Catheter) 75 / Indwelling Urethral Catheter Other: Date of Last Bowel Movement 06/09/18 06/10/18 06/10/18 # Bowel Movements 2 # Incontinent Bowel Movements 1 Narrative: GENERAL: Alert, Oriented x 3, NAD. Better oriented today SKIN: Warm and dry. Anasarca present HEAD: Normocephalic. Atraumatic EYES: No scleral icterus. No injection or drainage. NECK: Supple, trachea midline. No JVD or lymphadenopathy. CARDIOVASCULAR: Regular rate and rhythm without murmurs, gallops, or rubs. S1- S2 no S3 or S4 RESPIRATORY: Breath sounds equal bilaterally. No accessory muscle use. GASTROINTESTINAL: Abdomen distended, nontender to palpation good bowel sounds throughout soft nontender MUSCULOSKELETAL: No cyanosis. LESS edema in upper and lower ext. +1 in upper extremity and lower extremity bilaterally BACK: Nontender without obvious deformity. No CVA tenderness. Insight and judgment is limited. Mood and behavior is somewhat appropriate. - Urinary Catheter Management Indwelling Urethral Catheter Cath placed during this visit: yes Reason for continuing: Acute urinary retention Insertion date: 06/04/18 Insertion time: 18:15 Results - Labs CBC & Chem 7: 06/10/18 05:52 06/10/18 05:52 Laboratory Results - last 24 hr 06/09/18 06/10/18 06/10/18 21:15 05:52 05:52 WBC 5.5 RBC 3.37 L Hgb 9.6 L Hct 28.4 L MCV 84.4 MCH 28.5 MCHC 33.8 RDW 17.8 H Plt Count 106 L MPV 7.4 Neut % (Auto) 63.4 Lymph % (Auto) 11.7 [place] % (Auto) 11.4 H Eos % (Auto) 13.2 H Baso % (Auto) 0.3 Neut # (Auto) 3.5 Lymph # (Auto) 0.6 L [place] # (Auto) 0.6 Eos # (Auto) 0.7 H Baso # (Auto) 0.0 WBC Differential . Differential Comment Auto diff final Puncture Site Right radial Patient Temperature 98.6 O2 Saturation 56 L* ABG pH 7.33 L ABG pCO2 54 H* ABG pO2 33 L* ABG HCO3 27 H ABG O2 Content 7.8 L ABG Base Excess 1.8 ABG Methemoglobin 1.5 Reagan Test Present Hemoglobin 9.9 L Carboxyhemoglobin 1.2 O2 Delivery Device Nasal cannula Liter Flow 4.00 Inspired O2 36 Critical Value Yes Sodium Potassium Chloride Carbon Dioxide Anion Gap BUN Creatinine Estimated GFR Random Glucose Calcium Phosphorus Magnesium Total Bilirubin AST ALT Alkaline Phosphatase Ammonia 47 H Total Protein Albumin 06/10/18 06/10/18 05:52 06:45 WBC RBC Hgb Hct MCV MCH MCHC RDW Plt Count MPV Neut % (Auto) Lymph % (Auto) [place] % (Auto) Eos % (Auto) Baso % (Auto) Neut # (Auto) Lymph # (Auto) [place] # (Auto) Eos # (Auto) Baso # (Auto) WBC Differential Differential Comment Puncture Site Right radial Patient Temperature 98.6 O2 Saturation 71 L* ABG pH 7.33 L ABG pCO2 53 H* ABG pO2 41 L* ABG HCO3 27 H ABG O2 Content 9.7 L ABG Base Excess 1.8 ABG Methemoglobin 1.4 Reagan Test + Hemoglobin 9.7 L Carboxyhemoglobin 1.3 O2 Delivery Device Nasal cannula Liter Flow 4.00 Inspired O2 36 Critical Value Yes Sodium 137 Potassium 3.4 L Chloride 100 Carbon Dioxide 27.3 Anion Gap 10 BUN 22 H Creatinine 2.95 H Estimated GFR 22 L Random Glucose 89 Calcium 8.5 Phosphorus 2.8 Magnesium 1.8 Total Bilirubin 2.3 H AST 22 ALT 18 Alkaline Phosphatase 44 L Ammonia Total Protein 7.5 Albumin 5.1 H - Procedures EXAM DATE: 06/06/2018 4:32 PM EDT AGE/SEX: 58 years / Male INDICATIONS: Patient with history of chronic kidney disease in need of non tunneled dialysis catheter CLINICAL DATA: This is the patient's initial encounter. Patient reports that signs and symptoms have been present for 1 week and indicates a pain score of 8/ 10. MEDICAL/SURGICAL HISTORY: Hepatitis C. Liver cirrhosis, CKD, CAD, A-Fib, HLD, HTN, COPD, NC, CHF, Raynauds syndrome Cholecystectomy. Aortic valve replacement, Knee surgery, CABG, Lung surgery, Back surgery COMPARISON: No prior exams available for comparison. FLUORO TIME (min): 0.1 IMAGE SERIES: 1 ACCESS SITE: Right internal jugular vein DEVICE(S): 14 Latvian double lumen X20CM Schon catheter . . PROCEDURE : 1. Ultrasound guided venipuncture. 2. Fluoroscopic guidance. 3. Central line placement. The risks, benefits and alternatives to the procedure were explained and verbal and written consent was obtained. The site was prepped in sterile fashion. Full sterile technique was used, including cap, mask, sterile gloves and gown and a large sterile sheet. Hand hygiene and 2% chlorhexidine prep was utilized per protocol for cutaneous antisepsis with appropriate dry time for site. Sterile gel and sterile probe cover were utilized for ultrasound guidance. The skin and subcutaneous tissues were infiltrated with local anesthetic solution. A suitable site above the vein was selected with ultrasound and fluoroscopic guidance. A small incision was made. The vein was accessed under direct ultrasound visualization using the micropuncture technique. The micropuncture set was exchanged for a 0.035 wire. The tract was dilated. The catheter was advanced into position under direct fluoroscopic visualization, and was advanced with the tip at the junction of the superior vena cava and rt atrium. The catheter was fixed in place with suture and a sterile dressing was applied. The patient tolerated the procedure well and there were no complications. CONCLUSION: 1. Uncomplicated line placement as above. Electronically signed by: Joe Garcia MD 06/07/2018 9:37 AM EDT Undergoing hemodialysis so far on and 96 AND 06-09 Assessment and Plan - Plan Mr. Boogie is a pleasant 58-year-old male with a history of hepatitis C on Harvoni, CKD who was admitted to the hospital after he had a blood work at the [place] which shows hypokalemia and worsening creatinine. Acute on chronic kidney disease Hyperkalemia Hyponatremia -Creatinine 2.5 --> 1.80 --> 1.90 ==> 2.2 ==> 2.9 ==> 3.7 NOW IS 4.26-- NOW 3.9 His baseline creatinine is about 1.4-1.6. -Is being given Lasix 80 mg IV twice daily as well as Zaroxolyn and ProAmatine -Potassium has improved. -Discussed with Nephrology on 06/03/2018. . -transfer patient to the main hospital. -Continue Midodrine, albumin and Octreotide. -May need at least transient dialysis. REMAINS CONFUSED CHECK AMMONIA NOW AND TOMORROW Acute renal failure status post chemo dialysis catheter placed on 95 Status post hemodialysis on 06-06 and repeat hemodialysis on 96 Hypokalemia replace with potassium bath during hemodialysis WILL GIVE PO POTASSIUM TODAY Paroxysmal Atrial fibrillation -Patient takes Atenolol at home. Continue Metoprolol 25mg BID. -[id number] score 0. Although Aspirin would be beneficial, given his liver cirrhosis, it maybe risky to start Aspirin. 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 Liver cirrhosis Hepatitis C COAGULOPATHY -Patient is currently on Harvoni. Abdominal ultrasound did not reveal enough ascites to drain. -[facility]. - Morphine for abdominal pain. -Ammonia level is increased will make sure he is on lactulose may have to add rifaximin and increase lactulose to 3 times daily-ammonia level is still increased will monitor Full code. INR is 1.7 due to liver disease. Will start patient on Heparin 5000 unit SQ Q12hrs for DVT prophylaxis. PT AND OT TO EVAL AND TREAT will consult pulmonary may need construction skills teacher if continues to not improve Code Status: FULL CODE Discussed Condition With: RN AND PT Discharge Planning: PENDING IMPROVEMENT
[2018-06-10] MEDS ORDERED: Morphine Sulfate 15 MG IR Tablet PO PRN (18:18)
--- NOTE | 2018-06-10 19:36 | MB ---
cc: Dick Keller MD DATE: 06/10/2018 REQUESTING PHYSICIAN: Fran Hawk DO REASON FOR CONSULTATION: Shortness of breath and respiratory insufficiency. HISTORY OF PRESENT ILLNESS: Mr. Boogie is a 58-year-old white male with a history of hepatitis C. He is on Harvoni treatment, chronic kidney disease, aortic valve replacement, history of cirrhosis of the liver. The patient went to the [facility]. He was found to have abnormal labs with increased potassium. He was sent to the emergency room. The patient was in the hospital and he was started on hemodialysis, this morning became more short of breath. He was put on BiPAP, with BiPAP his breathing significantly improved . PAST MEDICAL HISTORY: Significant history of cirrhosis of the liver, chronic kidney disease, hepatitis C on Harvoni treatment aortic, valve replacement, congenital heart disease and coronary disease, status post CABG, back surgery. MEDICATIONS: He is currently takin. IV albumin. 2. Clonidine 0.1 mg. 3. Gentamicin injection with dialysis. 4. Heparin 5,000 q. 12 hours. 5. Lactulose 30 mL q.i.d. 6. Metoprolol 50 mg twice a day. 7. Midodrine 10 mg 3 times a day. 8. Morphine 15 mg q. 4 hours. 9. Nitroglycerin 0.4 mg p.r.n. 10. Rifaximin 550 mg every 12 hours. 11. Demadex 20 mg twice a day. 12. Flomax 0.4 mg a day. ALLERGIES: ERYTHROMYCIN AND FENOPROFEN. SOCIAL HISTORY: He denies any smoking, alcohol or drug abuse. FAMILY HISTORY: Noncontributory. REVIEW OF SYSTEMS: He has swelling in his leg, swelling in the abdomen. No seizure . No DVT or pulmonary embolism. PHYSICAL EXAMINATION: GENERAL: Moderately well-nourished male, mild short of breath, not in acute distress. VITAL SIGNS: His blood pressure 108/60, heart rate 63, respirations 20, temperature 97.8. HEENT: Pupils are equal and reactive. NECK: Supple. No JVD noted. CHEST: Equal bilaterally. He has decreased breath sounds at the bases. HEART: S1, S2 normal. ABDOMEN: Mildly distended. Bowel sounds are present. EXTREMITIES: 1+ pedal edema. LABORATORY DATA: His lab evaluation shows WBC count 5.5, creatinine 2.95. His chest x-ray shows hazy opacity in the right middle and lower lungs suggestive of pleural effusion with infiltrate. IMPRESSION: 1. Shortness of breath with respiratory acidosis, significantly improved now. 2. Fluid overload. 3. Renal failure. 4. Cirrhosis of the liver. 5. Hepatitis C. 6. Aortic valve replacement. 7. Coronary disease, status post coronary artery bypass graft. PLAN: The patient will be maintained on nasal cannula. He is being diuresed. Monitor his electrolytes. Use CPAP at nighttime and daytime as needed for his lethargy and shortness of breath. Once he gets better, we will check his pulmonary function study. Further treatment will depend on the course in the hospital. Thank you Dr. Hawk for this consultation. MD NEWTON Titus/dinh/charis , 03:49 PM , 03:57 PM RISHI
[2018-06-10 20:09] LABS: ABG Base Excess -1.4 mmol/L (-2-2); ABG PCO2 46 mmHg (38-42); ABG PO2 123 mmHG (61-120)
[2018-06-11] MEDS: Octreotide Inj 500 MCG in Sodium Chlor 0.9% Inj 500 ML IV.CONT SCH ×3 (04:57→15:06)
[2018-06-11] MEDS: Albumin Human 25% Inj 100 ML IV.SIG SCH (05:54)
[2018-06-11 06:57] LABS: Baso % (Auto) 0.8 % (0.0-2.0); Eos # (Auto) 0.6 th/mm3 (0.0-0.4); Eos % (Auto) 10.2 % (0.0-4.0); Hemoglobin 10.4 gm/dL (13.0-17.0); Lymph # (Auto) 0.7 th/mm3 (1.0-4.8); Lymph % (Auto) 11.7 % (9.0-44.0); Mean Corpuscular Hemoglobin 27.9 pg (27.0-34.0); Mean Corpuscular Volume 91.2 fL (80.0-100.0); Mean Platelet Volume 7.8 fL (7.0-11.0); Mono # (Auto) 0.7 th/mm3 (0.0-0.9); Mono % (Auto) 11.5 % (0.0-8.0); Neut # (Auto) 3.9 th/mm3 (1.8-7.7); Neut % (Auto) 65.8 % (16.0-70.0); Platelet Count 106 th/mm3 (150-450); Red Blood Count 3.73 mil/mm3 (4.50-5.90); Red Cell Distribution Width 19.5 % (11.6-17.2)
[2018-06-11 06:58] LABS: Mean Corpuscular HGB Conc 30.6 % (32.0-36.0)
[2018-06-11 07:26] LABS: Alanine Aminotransferase 18 U/L (12-78); Albumin 5.3 g/dL (3.4-5.0); Anion Gap 11 meq/L (5-15); Aspartate Aminotransferase 19 U/L (15-37); Blood Urea Nitrogen 24 mg/dL (7-18); Carbon Dioxide 26.3 meq/L (21.0-32.0); Chloride 101 meq/L (98-107); Glomerular Filtration Rate 16 mL/min (>89); Glucose,Random 86 mg/dL (74-106); Phosphorus 3.3 mg/dL (2.5-4.9); Potassium 3.7 meq/L (3.5-5.1); Sodium 138 meq/L (136-145)
[2018-06-11 07:29] LABS: Alkaline Phosphatase 42 U/L (45-117)
[2018-06-11] MEDS: Metoprolol Tartrate 50 MG Tablet PO SCH ×2 (09:17→21:18)
[2018-06-11] MEDS: Heparin Central Flush 100 UNIT/ML 5 ML Vial IV.FLUSH SCH (09:18)
[2018-06-11] MEDS: Nystatin 100,000 UNITS/GM Powder 15 GM Bottle TOPICAL SCH ×4 (09:26→21:18)
[2018-06-11] MEDS: Heparin - SQ 10,000 UNITS/ML Vial SQ SCH ×2 (09:26→21:17)
--- NOTE | 2018-06-11 10:49 | P.PNIM ---
Subjective Interval history: Mr. Boogie is a pleasant 58-year-old male with a history of liver cirrhosis, chronic kidney disease, hepatitis C on Harvoni, aortic valve replacement who presented to the emergency department after he had a routine blood work that shows elevated potassium decreased sodium and elevated creatinine. Patient denies any chest pain, shortness of breath, fever or chills. However he does report increased abdominal distention and pain. He is on liver transplant list. He follows up with [facility]. On arrival patient 's BMP shows sodium 128, potassium 5.7, BUN 56 and creatinine 2.5. Patient was given insulin and dextrose as well as calcium. Although his potassium improved to 4.9, in the morning on 05/30/2018 his potassium went back up again at 5.8. Creatinine has remained 2.5 despite IV hydration. Past medical history: Congenital heart disease with bicuspid aortic valve status post aortic valve replacement, liver cirrhosis, hepatitis C Past surgical history: Cholecystectomy, knee surgery, aortic valve replacement, lung surgery, CABG, back surgery Social history: Patient denies using tobacco, alcohol, illicit drugs. Family history. Mother, brother and sisters with diabetes mellitus. 8-30 Follow up for hepatorenal syndrome in a patient with Hep C, Cirrhosis. Patient is doing well. However, he complains of significant abdominal pain. No fever, chills. 8-31 Follow up for hepatorenal syndrome in a patient with Hep C, Cirrhosis. Patient is resting in bed, no acute concerns. No fever, chills. No CP, SOB. He had an episode of Afib. Apparently, he has had intermittent Afib before as well. He has been evaluated by a Biology Lecturer before. 9-1 Follow up for hepatorenal syndrome in a patient with Hep C, Cirrhosis. Patient reports anasarca and significant pain in his lower extremity joints. No fever, chills. 9-2 Follow up for hepatorenal syndrome. Patient complains of anasarca and difficulty initiating urination. No CP, fever, chills. 9-3 Follow-up for tunnel syndrome. Patient is currently doing well. He actually feels somewhat better today. Per nursing, however, he is not urinating and bladder scan shows no significant amount of urine in the bladder. This indicates the patient's renal function is getting worse and he is becoming anuric. We initiated a transfer to the main hospital yesterday. - PATIENT HAS BEEN TRANSFERRED FROM [place] FOR RENAL EVALUATIONS REMAINS CONFUSED WILL CHECK AMMONIA LEVEL TODAY AND TOMORROW PT AND OT TO EVAL AND TREAT HAD ABG DONE TODAY LOW BICARB REMAINS SOMEWHAT CONFUSED STILL DW RN AND PT AND FAMILY -5 IS IN ATRIAL FLUTTER-TACHYCARDIA LESS CONFUSED PT AND OT DW RN AND PT AND WILL TRY TO IMPROVE HEART RATE AM LABS -6 STARTED ON hemodialysis yesterday Had catheter placed on 95 for dialysis Feeling little better today Less confused Heart rate is better Having dialysis again today Hypokalemia is being replaced by potassium bath Discussed with patient and RN and server systems administrator 9-7 HAD DIALYSIS ON 06-06 AND 06-07 LESS SWELLING MEDICATIONS ADJUSTED BY NEPHROLOGY FAMILY AT BEDSIDE QUESTIONS ANSWERED - HAVING HD TODAY LESS SWELLING MEDS BEING ADJUSTED DW RN AND PT - REMAINS ON BIPAP LESS SWELLING BECAME HYPOTENSIVE EARLIER TODAY GIVEN FLUID BOLUS MEDS ADJUSTED BY NEPHROLOGY HOPE DOES NOT HAVE TO GO ON VENT HAD HD YESTERDAY BUT IS STILL SOB WILL CONSULT PULMONARY 06-11 OFF BIPAP SEEN BY PULMONARY TO HAVE HD LATER TODAY DW PATIENT AND RN AND FAMILY AM LABS Physical Exam Vital signs: Vital Signs 06/10/18 12:00 06/10/18 14:00 06/10/18 16:00 Temperature 97.8 F 98.1 F Pulse Rate 63 63 55 L Respiratory Rate 22 11 L Blood Pressure 99/56 L 105/51 L Pulse Oximetry 06/10/18 18:00 06/10/18 20:00 06/10/18 21:56 Temperature 98.3 F Pulse Rate 63 65 Respiratory Rate 14 Blood Pressure 92/57 L Pulse Oximetry 96 96 06/10/18 22:00 06/11/18 00:00 06/11/18 02:00 Temperature 97.7 F Pulse Rate 66 60 59 L Respiratory Rate 16 Blood Pressure 100/59 L Pulse Oximetry 96 06/11/18 04:00 06/11/18 06:00 06/11/18 08:00 Temperature 98.4 F Pulse Rate 56 L 67 67 Respiratory Rate 14 Blood Pressure 104/62 Pulse Oximetry 96 91 L Intake & Output 06/10/18 06/11/18 06/11/18 18:59 06:59 18:59 Intake Total 2080.5 / 2080.5 980.5 / 980.5 100 / 100 Output Total 0 / 0 25 / 25 Balance 2080.5 / 2080.5 955.5 / 955.5 100 / 100 Weight 96.4 kg Intake: IV 1600.5 / 1600.5 500.5 / 500.5 100 / 100 SandoSTATIN Inj 500 MCG In NS 1000.5 / 1000.5 500.5 / 500.5 Inj 500 ML @ 50 MCG/HR 50.05 mls/hr IV.CONT .Q10H SHALINI Rx#: [id number] Flexbumin 25% Inj 100 ML @ 60 100 / 100 100 / 100 mls/hr IV.SIG Q12H SHALINI Rx#: [id number] NS Inj 500 ML @ Wide Open IV. 500 / 500 SIG BOLUS SHALINI Rx#:[id number] Oral 480 / 480 480 / 480 Output: Urine 0 / 0 Urine Amount (Catheter) Indwelling Urethral Catheter Other: Date of Last Bowel Movement 06/10/18 06/11/18 06/11/18 # Bowel Movements 1 3 Narrative: GENERAL: Alert, Oriented x 3, NAD. Better oriented today SKIN: Warm and dry. Anasarca present HEAD: Normocephalic. Atraumatic EYES: No scleral icterus. No injection or drainage. NECK: Supple, trachea midline. No JVD or lymphadenopathy. CARDIOVASCULAR: Regular rate and rhythm without murmurs, gallops, or rubs. S1- S2 no S3 or S4 RESPIRATORY: Breath sounds equal bilaterally. No accessory muscle use. GASTROINTESTINAL: Abdomen distended, nontender to palpation good bowel sounds throughout soft nontender MUSCULOSKELETAL: No cyanosis. LESS edema in upper and lower ext. +1 in upper extremity and lower extremity bilaterally BACK: Nontender without obvious deformity. No CVA tenderness. Insight and judgment is limited. Mood and behavior is somewhat appropriate. - Urinary Catheter Management Indwelling Urethral Catheter Cath placed during this visit: yes Reason for continuing: Acute urinary retention Insertion date: 06/04/18 Insertion time: 18:15 Results - Labs CBC & Chem 7: 06/11/18 06:38 06/11/18 06:38 Laboratory Results - last 24 hr 06/10/18 06/11/18 06/11/18 20:00 06:38 06:38 WBC 6.0 RBC 3.73 L Hgb 10.4 L Hct 34.0 L MCV 91.2 D MCH 27.9 MCHC 30.6 L RDW 19.5 H Plt Count 106 L MPV 7.8 Neut % (Auto) 65.8 Lymph % (Auto) 11.7 [place] % (Auto) 11.5 H Eos % (Auto) 10.2 H Baso % (Auto) 0.8 Neut # (Auto) 3.9 Lymph # (Auto) 0.7 L [place] # (Auto) 0.7 Eos # (Auto) 0.6 H Baso # (Auto) 0.0 WBC Differential . Differential Comment Auto diff final Puncture Site Right radial Patient Temperature 98.6 O2 Saturation 96 ABG pH 7.33 L ABG pCO2 46 H ABG pO2 123 H ABG HCO3 24 ABG O2 Content 14.1 ABG Base Excess -1.4 ABG Methemoglobin 1.2 Reagan Test Present Hemoglobin 10.3 L Carboxyhemoglobin 1.4 O2 Delivery Device Nasal cannula Liter Flow 4.00 Inspired O2 21 Critical Value No Sodium Potassium Chloride Carbon Dioxide Anion Gap BUN Creatinine Estimated GFR Random Glucose Calcium Phosphorus Magnesium Total Bilirubin AST ALT Alkaline Phosphatase Ammonia 27 Total Protein Albumin 06/11/18 06:38 WBC RBC Hgb Hct MCV MCH MCHC RDW Plt Count MPV Neut % (Auto) Lymph % (Auto) [place] % (Auto) Eos % (Auto) Baso % (Auto) Neut # (Auto) Lymph # (Auto) [place] # (Auto) Eos # (Auto) Baso # (Auto) WBC Differential Differential Comment Puncture Site Patient Temperature O2 Saturation ABG pH ABG pCO2 ABG pO2 ABG HCO3 ABG O2 Content ABG Base Excess ABG Methemoglobin Reagan Test Hemoglobin Carboxyhemoglobin O2 Delivery Device Liter Flow Inspired O2 Critical Value Sodium 138 Potassium 3.7 Chloride 101 Carbon Dioxide 26.3 Anion Gap 11 BUN 24 H Creatinine 3.88 H Estimated GFR 16 L Random Glucose 86 Calcium 9.0 Phosphorus 3.3 Magnesium 2.0 Total Bilirubin 2.0 H AST 19 ALT 18 Alkaline Phosphatase 42 L Ammonia Total Protein 8.0 Albumin 5.3 H - Procedures EXAM DATE: 06/06/2018 4:32 PM EDT AGE/SEX: 58 years / Male INDICATIONS: Patient with history of chronic kidney disease in need of non tunneled dialysis catheter CLINICAL DATA: This is the patient's initial encounter. Patient reports that signs and symptoms have been present for 1 week and indicates a pain score of 8/ 10. MEDICAL/SURGICAL HISTORY: Hepatitis C. Liver cirrhosis, CKD, CAD, A-Fib, HLD, HTN, COPD, DE, CHF, Raynauds syndrome Cholecystectomy. Aortic valve replacement, Knee surgery, CABG, Lung surgery, Back surgery COMPARISON: No prior exams available for comparison. FLUORO TIME (min): 0.1 IMAGE SERIES: 1 ACCESS SITE: Right internal jugular vein DEVICE(S): 14 [place] double lumen X20CM Schon catheter . . PROCEDURE : 1. Ultrasound guided venipuncture. 2. Fluoroscopic guidance. 3. Central line placement. The risks, benefits and alternatives to the procedure were explained and verbal and written consent was obtained. The site was prepped in sterile fashion. Full sterile technique was used, including cap, mask, sterile gloves and gown and a large sterile sheet. Hand hygiene and 2% chlorhexidine prep was utilized per protocol for cutaneous antisepsis with appropriate dry time for site. Sterile gel and sterile probe cover were utilized for ultrasound guidance. The skin and subcutaneous tissues were infiltrated with local anesthetic solution. A suitable site above the vein was selected with ultrasound and fluoroscopic guidance. A small incision was made. The vein was accessed under direct ultrasound visualization using the micropuncture technique. The micropuncture set was exchanged for a 0.035 wire. The tract was dilated. The catheter was advanced into position under direct fluoroscopic visualization, and was advanced with the tip at the junction of the superior vena cava and rt atrium. The catheter was fixed in place with suture and a sterile dressing was applied. The patient tolerated the procedure well and there were no complications. CONCLUSION: 1. Uncomplicated line placement as above. Electronically signed by: Joe Garcia MD 06/07/2018 9:37 AM EDT Undergoing hemodialysis so far on and AND 06-09 Assessment and Plan - Plan Mr. Boogie is a pleasant 58-year-old male with a history of hepatitis C on Harvoni, CKD who was admitted to the hospital after he had a blood work at the [facility] which shows hypokalemia and worsening creatinine. Acute on chronic kidney disease Hyperkalemia Hyponatremia -Creatinine 2.5 --> 1.80 --> 1.90 ==> 2.2 ==> 2.9 ==> 3.7 NOW IS 4.26-- NOW 3.9 His baseline creatinine is about 1.4-1.6. -Is being given Lasix 80 mg IV twice daily as well as Zaroxolyn and ProAmatine -Potassium has improved. -Discussed with Nephrology on 06/03/2018. . -transfer patient to the main hospital. -Continue Midodrine, albumin and Octreotide. -May need at least transient dialysis. REMAINS CONFUSED CHECK AMMONIA NOW AND TOMORROW Acute renal failure status post chemo dialysis catheter placed on 95 Status post hemodialysis on 06-06 and repeat hemodialysis on 96 Hypokalemia replace with potassium bath during hemodialysis WATCH ELECTROLYTES Paroxysmal Atrial fibrillation -Patient takes Atenolol at home. Continue Metoprolol 25mg BID. -[id number] score 0. Although Aspirin would be beneficial, given his liver cirrhosis, it maybe risky to start Aspirin. -Patient will discuss with his photo mask inspector after hospitalization. Liver cirrhosis Hepatitis C COAGULOPATHY -Patient is currently on Harvoni. Abdominal ultrasound did not reveal enough ascites to drain. -Patient follows up with [facility] with regards to liver transplant. - Morphine for abdominal pain. -Ammonia level is increased will make sure he is on lactulose may have to add rifaximin and increase lactulose to 3 times daily-ammonia level is still increased will monitor Full code. INR is 1.7 due to liver disease. Will start patient on Heparin 5000 unit SQ Q12hrs for DVT prophylaxis. PT AND OT TO EVAL AND TREAT will consult pulmonary OXYGEN NEEDED BIPAP AT NIGHT AND FOR NAPS WILL NEED HD DEFER TO NEPHROLOGY WILL NEED FOLLOW UP WITH [facility] AFTER DISCHARGE Code Status: FULL CODE Discussed Condition With: RN AND PT AND FAMILY Discharge Planning: PENDING IMPROVEMENT
--- NOTE | 2018-06-11 11:32 | P.PNNP ---
Subjective Interval history: Patient tired short of breath urine output has dropped Physical Exam Vital signs: Vital Signs 06/10/18 12:00 06/10/18 14:00 06/10/18 16:00 Temperature 97.8 F 98.1 F Pulse Rate 63 63 55 L Respiratory Rate 22 11 L Blood Pressure 99/56 L 105/51 L Pulse Oximetry 06/10/18 18:00 06/10/18 20:00 06/10/18 21:56 Temperature 98.3 F Pulse Rate 63 65 Respiratory Rate 14 Blood Pressure 92/57 L Pulse Oximetry 96 96 06/10/18 22:00 06/11/18 00:00 06/11/18 02:00 Temperature 97.7 F Pulse Rate 66 60 59 L Respiratory Rate 16 Blood Pressure 100/59 L Pulse Oximetry 96 06/11/18 04:00 06/11/18 06:00 06/11/18 08:00 Temperature 98.4 F 97.9 F Pulse Rate 56 L 67 67 Respiratory Rate 14 12 Blood Pressure 104/62 108/58 L Pulse Oximetry 96 91 L Intake & Output 06/10/18 06/11/18 06/11/18 18:59 06:59 18:59 Intake Total 2080.5 / 2080.5 980.5 / 980.5 100 / 100 Output Total 0 / 0 Balance 2080.5 / 2080.5 955.5 / 955.5 100 / 100 Weight 96.4 kg Intake: IV 1600.5 / 1600.5 500.5 / 500.5 100 / 100 SandoSTATIN Inj 500 MCG In NS 1000.5 / 1000.5 500.5 / 500.5 Inj 500 ML @ 50 MCG/HR 50.05 mls/hr IV.CONT .Q10H SHALINI Rx#: [id number] Flexbumin 25% Inj 100 ML @ 60 100 / 100 100 / 100 mls/hr IV.SIG Q12H SHALINI Rx#: [id number] NS Inj 500 ML @ Wide Open IV. 500 / 500 SIG BOLUS SHALINI Rx#:[id number] Oral 480 / 480 480 / 480 Output: Urine 0 / 0 Urine Amount (Catheter) Indwelling Urethral Catheter Other: Date of Last Bowel Movement 06/10/18 06/11/18 06/11/18 # Bowel Movements 1 3 - Constitutional mild distress - Routine HEENT Exam Head: Present: normocephalic - Routine Neck Exam Present: supple - Routine Respiratory Exam Present: decreased breath sounds - Routine Cardiovascular Exam Present: RRR - Routine Abdominal Exam Present: soft, distended - Routine Extremities Exam Present: edema - Urinary Catheter Management Indwelling Urethral Catheter Cath placed during this visit: yes Reason for continuing: Acute urinary retention Insertion date: 06/04/18 Insertion time: 18:15 Assessment and Plan - Assessment (1) Acute renal failure superimposed on stage 3 chronic kidney disease Code(s): N17.9 - Acute kidney failure, unspecified; N18.3 - Chronic kidney disease, stage 3 (moderate) Status: Acute (2) Hyponatremia Code(s): E87.1 - Hypo-osmolality and hyponatremia Status: Acute (3) Cirrhosis Code(s): K74.60 - Unspecified cirrhosis of liver Status: Acute - Plan Worsening azotemia: Creatinine was elevated and ended up on hemodialysis Urine sodium low Suspect hepatorenal - patient with HCV cirrhosis and on transplant list at [place] He remains on nasal cannula however he does have fluid buildup urine output is a slow and we will plan to do dialysis Extensive discussion with him and girlfriend that he will require liver transplant and he will likely need hemodialysis for prolonged period of time Given my visiting card again told them to contact [facility] or provide me with information speak to his liver doctor Has peripheral edema Patient has advanced liver disease and renal failure Poor prognosis Now with low blood pressure on nasal cannula oxygen
[2018-06-11] MEDS: rifAXIMin 550 MG Tablet PO SCH ×2 (12:02→23:22)
[2018-06-11] MEDS: Heparin 10,000 UNITS/10 ML Vial (for IV use) OTHER PRN (13:37)
[2018-06-11] MEDS: Albumin Human 25% Inj 100 ML IV.SIG PRN ×2 (13:39→13:40)
[2018-06-11] MEDS: Sod Chloride 0.9% Inj 1,000 ML OTHER PRN (13:40)
--- NOTE | 2018-06-11 18:22 | P.PNPL ---
Subjective Interval history: 58 YOWM with Cirrhosis of liver, renal failure used CPAp Less tired Appetite poor but ate food brought by GF On [place] Physical Exam Vital signs: Vital Signs 06/10/18 20:00 06/10/18 21:56 06/10/18 22:00 Temperature 98.3 F Pulse Rate 65 66 Respiratory Rate 14 Blood Pressure 92/57 L Pulse Oximetry 96 96 06/11/18 00:00 06/11/18 02:00 06/11/18 04:00 Temperature 97.7 F 98.4 F Pulse Rate 60 59 L 56 L Respiratory Rate 16 14 Blood Pressure 100/59 L 104/62 Pulse Oximetry 96 96 06/11/18 06:00 06/11/18 08:00 06/11/18 10:00 Temperature 97.9 F Pulse Rate 67 67 63 Respiratory Rate 12 Blood Pressure 108/58 L Pulse Oximetry 91 L 06/11/18 12:00 06/11/18 14:00 06/11/18 16:00 Temperature 98.0 F 98.0 F Pulse Rate 63 60 62 Respiratory Rate 10 L 12 Blood Pressure 97/56 L 110/55 L Pulse Oximetry 93 L 90 L Intake & Output 06/10/18 06/11/18 06/11/18 18:59 06:59 18:59 Intake Total 2080.5 / 2080.5 980.5 / 980.5 700.5 / 700.5 Output Total 0 / 0 25 / 25 3000 / 3000 Balance 2080.5 / 2080.5 955.5 / 955.5 -2299.5 / -2299.5 Weight 96.4 kg Intake: IV 1600.5 / 1600.5 500.5 / 500.5 700.5 / 700.5 SandoSTATIN Inj 500 MCG In NS 1000.5 / 1000.5 500.5 / 500.5 500.5 / 500.5 Inj 500 ML @ 50 MCG/HR 50.05 mls/hr IV.CONT .Q10H SHALINI Rx#: [id number] Flexbumin 25% Inj 100 ML @ 60 100 / 100 200 / 200 mls/hr IV.SIG WITH DIALYSIS PRN Rx#:[id number] NS Inj 500 ML @ Wide Open IV. 500 / 500 SIG BOLUS SHALINI Rx#:[id number] Oral 480 / 480 480 / 480 Output: Urine 0 / 0 Hemodialysis Amount 3000 / 3000 Urine Amount (Catheter) 25 / 25 Indwelling Urethral Catheter Other: Date of Last Bowel Movement 06/10/18 06/11/18 06/11/18 # Bowel Movements 1 3 GENERAL: Elderly WM, mild sob SKIN: Warm and dry. HEAD: Normocephalic. EYES: No scleral icterus. No injection or drainage. NECK: Supple, trachea midline. No JVD or lymphadenopathy. CARDIOVASCULAR: Regular rate and rhythm without murmurs, gallops, or rubs. RESPIRATORY: Breath sounds equal bilaterally. No accessory muscle use. GASTROINTESTINAL: Abdomen soft, non-tender, nondistended. MUSCULOSKELETAL: No cyanosis, + edema. BACK: Nontender without obvious deformity. No CVA tenderness. - Urinary Catheter Management Indwelling Urethral Catheter Cath placed during this visit: yes Reason for continuing: Acute urinary retention Insertion date: 06/04/18 Insertion time: 18:15 Assessment and Plan - Plan IMPRESSION: 1. Shortness of breath with respiratory acidosis, significantly improved now. 2. Fluid overload. 3. Renal failure. 4. Cirrhosis of the liver. 5. Hepatitis C. 6. Aortic valve replacement. 7. Coronary disease, status post coronary artery bypass graft. PLAN: CPAP at night and PRN Supplement 02 SQ Heparin HD per renal DW pt and his GF at [facility]
[2018-06-12] MEDS: Octreotide Inj 500 MCG in Sodium Chlor 0.9% Inj 500 ML IV.CONT SCH ×3 (01:15→23:04)
[2018-06-12 06:01] LABS: Baso # (Auto) 0.1 th/mm3 (0.0-0.2); Baso % (Auto) 0.9 % (0.0-2.0); Eos # (Auto) 0.7 th/mm3 (0.0-0.4); Eos % (Auto) 11.6 % (0.0-4.0); Hematocrit 29.4 % (39.0-51.0); Hemoglobin 9.7 gm/dL (13.0-17.0); Lymph # (Auto) 0.7 th/mm3 (1.0-4.8); Lymph % (Auto) 11.8 % (9.0-44.0); Mean Corpuscular HGB Conc 32.9 % (32.0-36.0); Mean Corpuscular Hemoglobin 28.4 pg (27.0-34.0); Mean Corpuscular Volume 86.4 fL (80.0-100.0); Mean Platelet Volume 7.8 fL (7.0-11.0); Mono # (Auto) 0.8 th/mm3 (0.0-0.9); Mono % (Auto) 12.9 % (0.0-8.0); Neut # (Auto) 3.8 th/mm3 (1.8-7.7); Neut % (Auto) 62.8 % (16.0-70.0); Platelet Count 93 th/mm3 (150-450); Red Blood Count 3.41 mil/mm3 (4.50-5.90); Red Cell Distribution Width 18.4 % (11.6-17.2)
[2018-06-12 06:10] LABS: INR 1.9 Ratio; Prothrombin Time 19.2 sec (9.8-11.6)
[2018-06-12 06:12] LABS: Alanine Aminotransferase 16 U/L (12-78); Anion Gap 8 meq/L (5-15); Aspartate Aminotransferase 14 U/L (15-37); Blood Urea Nitrogen 19 mg/dL (7-18); Calcium 8.5 mg/dL (8.5-10.1); Carbon Dioxide 28.8 meq/L (21.0-32.0); Chloride 101 meq/L (98-107); Glomerular Filtration Rate 19 mL/min (>89); Glucose,Random 99 mg/dL (74-106); Phosphorus 2.5 mg/dL (2.5-4.9); Potassium 3.6 meq/L (3.5-5.1); Sodium 138 meq/L (136-145)
[2018-06-12 06:14] LABS: Alkaline Phosphatase 42 U/L (45-117); Total Protein 7.6 g/dL (6.4-8.2)
[2018-06-12 07:09] LABS: Ovalocytes 1+; Platelet Morphology Normal (Normal)
[2018-06-12] MEDS: Nystatin 100,000 UNITS/GM Powder 15 GM Bottle TOPICAL SCH ×4 (09:04→20:11)
[2018-06-12] MEDS: Metoprolol Tartrate 50 MG Tablet PO SCH ×3 (09:04→20:11)
[2018-06-12] MEDS: Heparin - SQ 10,000 UNITS/ML Vial SQ SCH ×2 (09:04→20:10)
[2018-06-12] MEDS: Heparin Central Flush 100 UNIT/ML 5 ML Vial IV.FLUSH SCH (09:04)
[2018-06-12] MEDS: Torsemide 20 MG Tablet PO SCH ×2 (09:31→20:10)
--- NOTE | 2018-06-12 10:20 | P.PNIM ---
Subjective Interval history: Mr. Boogie is a pleasant 58-year-old male with a history of liver cirrhosis, chronic kidney disease, hepatitis C on Harvoni, aortic valve replacement who presented to the emergency department after he had a routine blood work that shows elevated potassium decreased sodium and elevated creatinine. Patient denies any chest pain, shortness of breath, fever or chills. However he does report increased abdominal distention and pain. He is on liver transplant list. He follows up with OR physicians. On arrival patient 's BMP shows sodium 128, potassium 5.7, BUN 56 and creatinine 2.5. Patient was given insulin and dextrose as well as calcium. Although his potassium improved to 4.9, in the morning on 05/30/2018 his potassium went back up again at 5.8. Creatinine has remained 2.5 despite IV hydration. Past medical history: Congenital heart disease with bicuspid aortic valve status post aortic valve replacement, liver cirrhosis, hepatitis C Past surgical history: Cholecystectomy, knee surgery, aortic valve replacement, lung surgery, CABG, back surgery Social history: Patient denies using tobacco, alcohol, illicit drugs. Family history. Mother, brother and sisters with diabetes mellitus. 8-30 Follow up for hepatorenal syndrome in a patient with Hep C, Cirrhosis. Patient is doing well. However, he complains of significant abdominal pain. No fever, chills. 8-31 Follow up for hepatorenal syndrome in a patient with Hep C, Cirrhosis. Patient is resting in bed, no acute concerns. No fever, chills. No CP, SOB. He had an episode of Afib. Apparently, he has had intermittent Afib before as well. He has been evaluated by a [employer] before. 9-1 Follow up for hepatorenal syndrome in a patient with Hep C, Cirrhosis. Patient reports anasarca and significant pain in his lower extremity joints. No fever, chills. 9-2 Follow up for hepatorenal syndrome. Patient complains of anasarca and difficulty initiating urination. No CP, fever, chills. 9-3 Follow-up for tunnel syndrome. Patient is currently doing well. He actually feels somewhat better today. Per nursing, however, he is not urinating and bladder scan shows no significant amount of urine in the bladder. This indicates the patient's renal function is getting worse and he is becoming anuric. We initiated a transfer to the main hospital yesterday. 9- PATIENT HAS BEEN TRANSFERRED FROM [facility] FOR RENAL EVALUATIONS REMAINS CONFUSED WILL CHECK AMMONIA LEVEL TODAY AND TOMORROW PT AND OT TO EVAL AND TREAT HAD ABG DONE TODAY LOW BICARB REMAINS SOMEWHAT CONFUSED STILL DW RN AND PT AND FAMILY 9-5 IS IN ATRIAL FLUTTER-TACHYCARDIA LESS CONFUSED PT AND OT DW RN AND PT AND WILL TRY TO IMPROVE HEART RATE AM LABS -6 STARTED ON hemodialysis yesterday Had catheter placed on 95 for dialysis Feeling little better today Less confused Heart rate is better Having dialysis again today Hypokalemia is being replaced by potassium bath Discussed with patient and RN and 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 9-7 HAD DIALYSIS ON 06-06 AND 06-07 LESS SWELLING MEDICATIONS ADJUSTED BY NEPHROLOGY FAMILY AT BEDSIDE QUESTIONS ANSWERED 9- HAVING HD TODAY LESS SWELLING MEDS BEING ADJUSTED DW RN AND PT 9- REMAINS ON BIPAP LESS SWELLING BECAME HYPOTENSIVE EARLIER TODAY GIVEN FLUID BOLUS MEDS ADJUSTED BY NEPHROLOGY HOPE DOES NOT HAVE TO GO ON VENT HAD HD YESTERDAY BUT IS STILL SOB WILL CONSULT PULMONARY 06-11 OFF BIPAP SEEN BY PULMONARY TO HAVE HD LATER TODAY DW PATIENT AND RN AND FAMILY AM LABS - SEEN BY GI NO NEW COMPLAINTS DEFER TO THEM ON HEPATITIS AND CIRRHOSIS MANAGEMENT AM LABS HAD HD SCHEDULED ON MONDAY, MON AND MONDAY Physical Exam Vital signs: Vital Signs 06/11/18 11:00 06/11/18 12:00 06/11/18 13:00 Temperature 98.0 F Pulse Rate 63 61 Respiratory Rate 10 L 9 L Blood Pressure 92/60 L 97/56 L 98/66 L Pulse Oximetry 87 L 86 L 06/11/18 13:15 06/11/18 13:30 06/11/18 13:45 Temperature Pulse Rate 60 59 L 59 L Respiratory Rate 10 L 13 10 L Blood Pressure 102/67 95/60 L 92/57 L Pulse Oximetry 86 L 85 L 84 L 06/11/18 14:00 06/11/18 14:15 06/11/18 14:30 Temperature Pulse Rate 60 60 61 Respiratory Rate 9 L 10 L 10 L Blood Pressure 97/58 L 103/63 99/62 L Pulse Oximetry 83 L 84 L 86 L 06/11/18 14:45 06/11/18 15:00 06/11/18 15:15 Temperature Pulse Rate 62 70 67 Respiratory Rate 12 8 L 12 Blood Pressure 108/65 100/63 103/65 Pulse Oximetry 86 L 81 L 87 L 06/11/18 15:30 06/11/18 15:45 06/11/18 16:00 Temperature 98.0 F Pulse Rate 63 62 62 Respiratory Rate 12 11 L 10 L Blood Pressure 103/62 103/59 L 110/56 L Pulse Oximetry 86 L 84 L 84 L 06/11/18 16:15 06/11/18 17:00 06/11/18 18:00 Temperature Pulse Rate 61 152 H 72 Respiratory Rate 11 L 14 6 L Blood Pressure 102/57 L 110/65 Pulse Oximetry 85 L 88 L 86 L 06/11/18 18:01 06/11/18 19:00 06/11/18 19:08 Temperature Pulse Rate 149 H 153 H Respiratory Rate 10 L 25 H Blood Pressure 105/66 Pulse Oximetry 87 L 77 L 96 06/11/18 19:17 06/11/18 20:00 06/11/18 20:41 Temperature 98.5 F Pulse Rate 174 H 74 77 Respiratory Rate 23 11 L 13 Blood Pressure 102/60 82/56 L Pulse Oximetry 84 L 87 L 79 L 06/11/18 21:00 06/11/18 21:01 06/11/18 22:00 Temperature Pulse Rate 67 67 70 Respiratory Rate 11 L 10 L 10 L Blood Pressure 105/61 Pulse Oximetry 84 L 84 L 83 L 06/11/18 22:21 06/11/18 23:00 06/12/18 00:00 Temperature 98.2 F Pulse Rate 74 69 69 Respiratory Rate 17 10 L 8 L Blood Pressure 98/64 L 97/59 L 85/55 L Pulse Oximetry 83 L 100 99 06/12/18 00:31 06/12/18 01:00 06/12/18 02:00 Temperature Pulse Rate 64 63 Respiratory Rate 12 10 L 14 Blood Pressure 87/52 L Pulse Oximetry 99 99 06/12/18 02:01 06/12/18 03:00 06/12/18 04:00 Temperature 98.6 F Pulse Rate 63 67 60 Respiratory Rate 11 L 11 L 21 Blood Pressure 106/57 L 92/53 L 97/62 L Pulse Oximetry 99 100 100 06/12/18 06:00 Temperature Pulse Rate 66 Respiratory Rate Blood Pressure Pulse Oximetry Intake & Output 06/11/18 06/12/18 06/12/18 18:59 06:59 18:59 Intake Total 1300.5 / 1300.5 1220.5 / 1220.5 Output Total 3000 / 3000 Balance -1699.5 / -1699.5 1190.5 / 1190.5 Weight 98.6 kg Intake: IV 700.5 / 700.5 500.5 / 500.5 SandoSTATIN Inj 500 MCG In NS 500.5 / 500.5 500.5 / 500.5 Inj 500 ML @ 50 MCG/HR 50.05 mls/hr IV.CONT .Q10H SHALINI Rx#: [id number] Flexbumin 25% Inj 100 ML @ 60 200 / 200 mls/hr IV.SIG WITH DIALYSIS PRN Rx#:[id number] Oral 600 / 600 720 / 720 Output: Hemodialysis Amount 3000 / 3000 Urine Amount (Catheter) Indwelling Urethral Catheter Other: Date of Last Bowel Movement 06/11/18 06/12/18 # Bowel Movements 1 Narrative: GENERAL: Alert, Oriented x 3, NAD. Better oriented today SKIN: Warm and dry. Anasarca present HEAD: Normocephalic. Atraumatic EYES: No scleral icterus. No injection or drainage. NECK: Supple, trachea midline. No JVD or lymphadenopathy. CARDIOVASCULAR: Regular rate and rhythm without murmurs, gallops, or rubs. S1- S2 no S3 or S4 RESPIRATORY: Breath sounds equal bilaterally. No accessory muscle use. GASTROINTESTINAL: Abdomen distended, nontender to palpation good bowel sounds throughout soft nontender MUSCULOSKELETAL: No cyanosis. LESS edema in upper and lower ext. +1 in upper extremity and lower extremity bilaterally BACK: Nontender without obvious deformity. No CVA tenderness. Insight and judgment is limited. Mood and behavior is somewhat appropriate. - Urinary Catheter Management Indwelling Urethral Catheter Cath placed during this visit: yes Reason for continuing: Acute urinary retention Insertion date: 06/04/18 Insertion time: 18:15 Results - Labs CBC & Chem 7: 06/12/18 05:25 06/12/18 05:25 Laboratory Results - last 24 hr 06/12/18 06/12/18 06/12/18 05:25 05:25 05:25 WBC 6.0 RBC 3.41 L Hgb 9.7 L Hct 29.4 L MCV 86.4 D MCH 28.4 MCHC 32.9 RDW 18.4 H Plt Count 93 L MPV 7.8 Prelim Diff (Auto) Slide review pending Neut % (Auto) 62.8 Lymph % (Auto) 11.8 Bent % (Auto) 12.9 H Eos % (Auto) 11.6 H Baso % (Auto) 0.9 Neut # (Auto) 3.8 Lymph # (Auto) 0.7 L Bent # (Auto) 0.8 Eos # (Auto) 0.7 H Baso # (Auto) 0.1 WBC Differential . Diff Scan Auto diff confirmed Differential Comment . Platelet Estimate Low L Platelet Morphology Normal Ovalocytes 1+ H PT 19.2 H INR 1.9 Sodium Potassium Chloride Carbon Dioxide Anion Gap BUN Creatinine Estimated GFR Random Glucose Calcium Phosphorus Magnesium Total Bilirubin AST ALT Alkaline Phosphatase Ammonia 27 Total Protein Albumin 06/12/18 05:25 WBC RBC Hgb Hct MCV MCH MCHC RDW Plt Count MPV Prelim Diff (Auto) Neut % (Auto) Lymph % (Auto) Bent % (Auto) Eos % (Auto) Baso % (Auto) Neut # (Auto) Lymph # (Auto) Bent # (Auto) Eos # (Auto) Baso # (Auto) WBC Differential Diff Scan Differential Comment Platelet Estimate Platelet Morphology Ovalocytes PT INR Sodium 138 Potassium 3.6 Chloride 101 Carbon Dioxide 28.8 Anion Gap 8 BUN 19 H Creatinine 3.38 H Estimated GFR 19 L Random Glucose 99 Calcium 8.5 Phosphorus 2.5 Magnesium 2.0 Total Bilirubin 1.8 H AST 14 L ALT 16 Alkaline Phosphatase 42 L Ammonia Total Protein 7.6 Albumin 5.0 - Imaging Abdomen Ultrasound 05/30/18 00:00 CONCLUSION: Perihepatic ascites, insufficient at present to warrant paracentesis Abdomen/Bladder Ultrasound 06/04/18 00:00 CONCLUSION: 1. Ascites, otherwise unremarkable. Catheter Placement 06/06/18 08:00 CONCLUSION: 1. Uncomplicated line placement as above. Chest X-Ray 06/09/18 00:00 CONCLUSION: 1. Hazy opacity in the right mid and lower lung suggests pleural effusion with or without infiltrate. 2. Large bore central line tip projects in the right atrium. - Procedures EXAM DATE: 06/06/2018 4:32 PM EDT AGE/SEX: 58 years / Male INDICATIONS: Patient with history of chronic kidney disease in need of non tunneled dialysis catheter CLINICAL DATA: This is the patient's initial encounter. Patient reports that signs and symptoms have been present for 1 week and indicates a pain score of 8/ 10. MEDICAL/SURGICAL HISTORY: Hepatitis C. Liver cirrhosis, CKD, CAD, A-Fib, HLD, HTN, COPD, [place], CHF, Raynauds syndrome Cholecystectomy. Aortic valve replacement, Knee surgery, CABG, Lung surgery, Back surgery COMPARISON: No prior exams available for comparison. FLUORO TIME (min): 0.1 IMAGE SERIES: 1 ACCESS SITE: Right internal jugular vein DEVICE(S): 14 [place] double lumen X20CM Schon catheter . . PROCEDURE : 1. Ultrasound guided venipuncture. 2. Fluoroscopic guidance. 3. Central line placement. The risks, benefits and alternatives to the procedure were explained and verbal and written consent was obtained. The site was prepped in sterile fashion. Full sterile technique was used, including cap, mask, sterile gloves and gown and a large sterile sheet. Hand hygiene and 2% chlorhexidine prep was utilized per protocol for cutaneous antisepsis with appropriate dry time for site. Sterile gel and sterile probe cover were utilized for ultrasound guidance. The skin and subcutaneous tissues were infiltrated with local anesthetic solution. A suitable site above the vein was selected with ultrasound and fluoroscopic guidance. A small incision was made. The vein was accessed under direct ultrasound visualization using the micropuncture technique. The micropuncture set was exchanged for a 0.035 wire. The tract was dilated. The catheter was advanced into position under direct fluoroscopic visualization, and was advanced with the tip at the junction of the superior vena cava and rt atrium. The catheter was fixed in place with suture and a sterile dressing was applied. The patient tolerated the procedure well and there were no complications. CONCLUSION: 1. Uncomplicated line placement as above. Electronically signed by: Joe Garcia MD 06/07/2018 9:37 AM EDT Undergoing hemodialysis so far on 95 and 96 AND 06-09 Assessment and Plan - Plan Mr. Boogie is a pleasant 58-year-old male with a history of hepatitis C on Harvoni, CKD who was admitted to the hospital after he had a blood work at the OR which shows hypokalemia and worsening creatinine. Acute on chronic kidney disease Hyperkalemia Hyponatremia -Creatinine 2.5 --> 1.80 --> 1.90 ==> 2.2 ==> 2.9 ==> 3.7 NOW IS 4.26-- NOW 3.9 His baseline creatinine is about 1.4-1.6. -Is being given Lasix 80 mg IV twice daily as well as Zaroxolyn and ProAmatine -Potassium has improved. -Discussed with Nephrology on 06/03/2018. . -transfer patient to the main hospital. -Continue Midodrine, albumin and Octreotide. -May need at least transient dialysis. REMAINS CONFUSED CHECK AMMONIA NOW AND TOMORROW Acute renal failure status post chemo dialysis catheter placed on 95 Status post hemodialysis on 06-06 and repeat hemodialysis on 96 Hypokalemia replace with potassium bath during hemodialysis WATCH ELECTROLYTES Paroxysmal Atrial fibrillation -Patient takes Atenolol at home. Continue Metoprolol 25mg BID. -[id number] score 0. Although Aspirin would be beneficial, given his liver cirrhosis, it maybe risky to start Aspirin. -Patient will discuss with his service worker after hospitalization. Liver cirrhosis Hepatitis C COAGULOPATHY -Patient is currently on Harvoni. Abdominal ultrasound did not reveal enough ascites to drain. -Patient follows up with OR with regards to liver transplant. - Morphine for abdominal pain. -Ammonia level is increased will make sure he is on lactulose may have to add rifaximin and increase lactulose to 3 times daily-ammonia level is still increased will monitor Full code. INR is 1.7 due to liver disease. Will start patient on Heparin 5000 unit SQ Q12hrs for DVT prophylaxis. PT AND OT TO EVAL AND TREAT will consult pulmonary OXYGEN NEEDED BIPAP AT NIGHT AND FOR NAPS WILL NEED HD DEFER TO NEPHROLOGY WILL NEED FOLLOW UP WITH OR CLINIC AFTER DISCHARGE Code Status: FULL CODE Discussed Condition With: PATIENT AND RN AND GI Discharge Planning: PENDING IMPROVEMENT
[2018-06-12] MEDS: rifAXIMin 550 MG Tablet PO SCH ×2 (10:55→23:04)
--- NOTE | 2018-06-12 11:32 | P.CONGI ---
History of Present Illness Consult date: 06/12/18 Consult reason: End-stage liver disease, hepatitis C, cirrhosis Chief complaint: VITO, hyperkalemia History of Present Illness: This is a 58-year-old male who was admitted to the hospital on 05/29/2018 with abnormal blood work which included elevated potassium, sodium, BUN and creatinine. Patient has been managed in the intensive care setting and has a significant history of end-stage liver disease and cirrhosis diagnosed officially in 2017 according to the patient patient has been getting his medical care and follow-ups at the [facility] and according to the record and the patient he has been placed on a transplant list patient also notes that he has been placed on Harvoni 4 weeks for his hepatitis C through the [facility]. Currently patient states that he is abdomen has a full sensation but denies any abdominal pain and no acute changes over the past few weeks. Patient currently notes decreased appetite but no obvious nausea or vomiting or dyspepsia. Patient states he has multiple bowel movements at least 2 a day and denies any constipation. Current labs show hemoglobin 9.7, platelet count 93, PT/INR 1.9, BUN 19, creatinine 3.38, GFR 19. On 06/06/2018 dialysis catheter was placed and patient is now receiving hemodialysis 3 times a week. Other labs include total bilirubin 1.8, AST 14 ALT 16, alkaline phosphatase 42, and hepatitis C IgG antibody reactive, ammonia level 27. Gastroenterology was consulted to assist with patient's cirrhosis and end-stage liver disease and his plan of care. Patient states last colonoscopy was in the [place] area approximately 2 and half years ago and states he feels he had an EGD many years ago. He notes that he does have an appointment in the [facility] for [facility]. patient denies any family history of colon cancer but states his dad did at the age of 79 with esophageal cancer. Ultrasound of the abdomen and bladder showed ascites perihepatic. <Kelli Wang - Last Filed: 06/12/18 11:34> Review of Systems All other systems reviewed negative except as stated in HPI <Kelli Wang - Last Filed: 06/12/18 11:34> PMFSH - History History Provided By: Patient, Medical Record - Medical History Medical History: Medical History (Last Reviewed 06/11/18 @ 09:12 by Milagro Marquez) Cirrhosis (Acute) CAD (coronary artery disease) (Acute) Afib (Acute) Hyperlipemia (Acute) H/O: HTN (hypertension) (Acute) COPD (chronic obstructive pulmonary disease) (Acute) Hepatitis C (Acute) Myocardial infarct (Acute) Chest pain (Acute) CHF (congestive heart failure) Endocarditis History of alcohol use Raynauds syndrome Tobacco abuse - Surgical History Surgical History: Surgical History (Last Reviewed 06/11/18 @ 09:12 by Milagro Marquez) H/O aortic valve replacement (Acute) History of cholecystectomy (Acute) H/O: knee surgery History of lung surgery Hx of CABG Previous back surgery - Family History Family History: Family History (Last Reviewed 06/11/18 @ 09:12 by Milagro Marquez) Father Family history of cancer Mother Family history of diabetes mellitus Mother Family history of breast cancer - Tobacco History Second Hand Smoke Exposure: Yes Tobacco Use In Past 30 Days: Yes (states he quit 1 week ago.) Smoking Status: Former smoker Tobacco Type: Cigarettes - Alcohol History How Often Do You Have a Drink Containing Alcohol: Never - Substance Use History Substance History: Past History - Substance Use Type Alcohol Status: Early Remission Route Used: By Mouth Reason for Use: Calm Down, Feels Good Heroin Status: Sustained Remission Route Used: Intravenously Reason for Use: Feels Good Comment: has not used in over 1 year. - Travel History Recent Travel in the [place] Within the Last 8 Weeks: No Recent Travel Out of the Country Within the Last 8 Weeks: No - Immunization History Tetanus Immunization: <5 Years Hx Influenza Vaccine This Season: Yes <Kelli Wang - Last Filed: 06/12/18 11:34> - Medical History Medical History: Medical History (Last Reviewed 06/11/18 @ 09:12 by Milagro Marquez) Cirrhosis (Acute) CAD (coronary artery disease) (Acute) Afib (Acute) Hyperlipemia (Acute) H/O: HTN (hypertension) (Acute) COPD (chronic obstructive pulmonary disease) (Acute) Hepatitis C (Acute) Myocardial infarct (Acute) Chest pain (Acute) CHF (congestive heart failure) Endocarditis History of alcohol use Raynauds syndrome Tobacco abuse - Surgical History Surgical History: Surgical History (Last Reviewed 06/11/18 @ 09:12 by Milagro Marquez) H/O aortic valve replacement (Acute) History of cholecystectomy (Acute) H/O: knee surgery History of lung surgery Hx of CABG Previous back surgery - Family History Family History: Family History (Last Reviewed 06/11/18 @ 09:12 by Milagro Marquez) Father Family history of cancer Mother Family history of diabetes mellitus Mother Family history of breast cancer <Jim Shea - Last Filed: 06/12/18 16:18> Medications and Allergies Active Medications: Active Medications Acetaminophen (Tylenol) 650 mg PO UNSCH PRN PRN Reason: SEE LABEL COMMENTS Al Hydroxide/Mg Hydroxide (Milk Of Kayla Liemi) 30 ml PO Q12H PRN PRN Reason: Mild Constipation Bisacodyl (Dulcolax Supp) 10 mg RECTAL DAILY PRN PRN Reason: SEVERE CONSITIPATION Clonidine HCl (Catapres) 0.1 mg PO UNSCH PRN PRN Reason: SEE LABEL COMMENTS Diphenhydramine HCl (Benadryl) 25 mg PO Q4H PRN PRN Reason: pruritis Last Admin: 06/11/18 18:39 Dose: 25 mg Gelatin (Gelfoam 12 Mm/7 Mm Topical) 1 foam TOPICAL PRN PRN PRN Reason: help stop bleeding from site Gentamicin Sulfate (Gentamicin Inj) 20 mg OTHER WITH DIALYSIS PRN PRN Reason: Dwell Gentamycin Lock Last Admin: 06/11/18 13:37 Dose: 20 mg Heparin Sodium (Porcine) (Heparin Inj) 5,000 units SQ Q12HR SHALINI Last Admin: 06/12/18 09:04 Dose: 5,000 units Heparin Sodium (Porcine) (Heparin Inj) 8,000 units OTHER WITH DIALYSIS PRN PRN Reason: for machine prime Heparin Sodium (Porcine) (Heparin Inj) 1,000 units OTHER WITH DIALYSIS PRN PRN Reason: Dwell Heparin to Fill Catheter Last Admin: 06/11/18 13:37 Dose: 1,000 units Heparin Sodium (Porcine) (Heparin Central Flush) 0 unit IV.FLUSH DAILY PENDING SALE TO [facility] Last Admin: 06/12/18 09:04 Dose: Not Given Heparin Sodium (Porcine) (Heparin Central Flush) 0 unit IV.FLUSH PRN PRN PRN Reason: Flush each lumen Albumin Human (Flexbumin 25% Inj) 100 mls @ 60 mls/hr IV.SIG WITH DIALYSIS PRN PRN Reason: hypotension / volume replace Last Infusion: 06/11/18 16:14 Dose: 100 mls/hr Sodium Chloride (Ns Inj) 1,000 mls @ 0 mls/hr OTHER .Q0M PRN PRN Reason: for prime and rinse back Last Admin: 06/11/18 13:40 Dose: 200 mls/hr Sodium Chloride (Ns Inj) 1,000 mls @ 200 mls/hr OTHER .Q5H PRN PRN Reason: for dialyzer flush PRN Sodium Chloride (Ns Inj) 1,000 mls @ 0 mls/hr IV.CONT .Q0M PRN PRN Reason: hypotension / volume replace Sodium Chloride (Ns Inj) 500 mls @ 0 mls/hr IV.SIG BOLUS PENDING SALE TO [facility] Last Infusion: 06/10/18 07:31 Dose: Infused Octreotide Acetate 500 mcg/ (Sodium Chloride) 500.5 mls @ 50.05 mls/hr IV.CONT .Q10H PENDING SALE TO [facility] Last Admin: 06/12/18 10:55 Dose: 50 mcg/hr, 50.05 mls/hr Lactulose (Lactulose Liq) 30 ml PO QID PENDING SALE TO [facility] Last Admin: 06/12/18 09:05 Dose: Not Given Mannitol (Mannitol Inj) 12.5 gm IV.PUSH UNSCH PRN PRN Reason: hypotension / volume replace Metoprolol Tartrate (Lopressor) 50 mg PO BID PENDING SALE TO [facility] Last Admin: 06/12/18 09:12 Dose: Not Given Metoprolol Tartrate (Lopressor Inj) 2.5 mg IV.PUSH Q6H PRN PRN Reason: TACHYCARDIA GREATER THAN 120 Midodrine (Proamatine) 10 mg PO TID@0700,1200,1700 PENDING SALE TO [facility] Last Admin: 06/12/18 06:25 Dose: 10 mg Morphine Sulfate (Msir) 15 mg PO Q6H PRN PRN Reason: Pain 5-10 Nitroglycerin (Nitrostat Sl) 0.4 mg SL Q5M PRN PRN Reason: CHEST PAIN Nystatin (Mycostatin Powder) 1 applicatio TOPICAL QID PENDING SALE TO [facility] Last Admin: 06/12/18 09:04 Dose: 1 applicatio Ondansetron HCl (Zofran Inj) 4 mg IV.PUSH Q6H PRN PRN Reason: NAUSEA OR VOMITING Last Admin: 06/01/18 17:27 Dose: 4 mg Ondansetron HCl (Zofran Odt) 4 mg PO Q4H PRN PRN Reason: NAUSEA Last Admin: 06/03/18 00:02 Dose: 4 mg Ondansetron HCl (Zofran Inj) 4 mg IV.PUSH UNSCH PRN PRN Reason: NAUSEA OR VOMITING Oxycodone HCl (Roxicodone) 5 mg PO Q6H PRN PRN Reason: pain 1- 5 Last Admin: 06/12/18 06:31 Dose: 5 mg Oxycodone HCl (Roxicodone) 10 mg PO Q6H PRN PRN Reason: 6-10 pain Patient Own: Harvoni (Ledipasvir/Sofosbuvir) 90/400 Tab 0 each PO DAILY PENDING SALE TO [facility] Rifaximin (Xifaxan) 550 mg PO Q12H PENDING SALE TO [facility] Last Admin: 06/12/18 10:55 Dose: 550 mg Sennosides (Senokot) 17.2 mg PO Q12H PRN PRN Reason: Moderate Constipation Sodium Chloride (Ns Flush) 5 ml IV.FLUSH PRN PRN PRN Reason: flush each lumen during HD Sodium Chloride (Ns Flush) 0 ml IV.FLUSH DAILY PENDING SALE TO [facility] Last Admin: 06/12/18 09:05 Dose: Not Given Sodium Chloride (Ns Flush) 0 ml IV.FLUSH PRN PRN PRN Reason: FLUSH AFTER USING IV ACCESS Tamsulosin HCl (Flomax) 0.4 mg PO DAILY PENDING SALE TO [facility] Last Admin: 06/10/18 08:37 Dose: 0.4 mg Torsemide (Demadex) 20 mg PO BID PENDING SALE TO [facility] Last Admin: 06/12/18 09:31 Dose: 20 mg <Kelli Wang - Last Filed: 06/12/18 11:34> Active Medications: Active Medications Acetaminophen (Tylenol) 650 mg PO UNSCH PRN PRN Reason: SEE LABEL COMMENTS Al Hydroxide/Mg Hydroxide (Milk Of Magnesia Liq) 30 ml PO Q12H PRN PRN Reason: Mild Constipation Bisacodyl (Dulcolax Supp) 10 mg RECTAL DAILY PRN PRN Reason: SEVERE CONSITIPATION Clonidine HCl (Catapres) 0.1 mg PO UNSCH PRN PRN Reason: SEE LABEL COMMENTS Diphenhydramine HCl (Benadryl) 25 mg PO Q4H PRN PRN Reason: pruritis Last Admin: 06/12/18 12:36 Dose: 25 mg Gelatin (Gelfoam 12 Mm/7 Mm Topical) 1 foam TOPICAL PRN PRN PRN Reason: help stop bleeding from site Gentamicin Sulfate (Gentamicin Inj) 20 mg OTHER WITH DIALYSIS PRN PRN Reason: Dwell Gentamycin Lock Last Admin: 06/12/18 13:08 Dose: 20 mg Heparin Sodium (Porcine) (Heparin Inj) 5,000 units SQ Q12HR SHALINI Last Admin: 06/12/18 09:04 Dose: 5,000 units Heparin Sodium (Porcine) (Heparin Inj) 8,000 units OTHER WITH DIALYSIS PRN PRN Reason: for machine prime Heparin Sodium (Porcine) (Heparin Inj) 1,000 units OTHER WITH DIALYSIS PRN PRN Reason: Dwell Heparin to Fill Catheter Last Admin: 06/12/18 13:07 Dose: 1,000 units Heparin Sodium (Porcine) (Heparin Central Flush) 0 unit IV.FLUSH DAILY SHALINI Last Admin: 06/12/18 09:04 Dose: Not Given Heparin Sodium (Porcine) (Heparin Central Flush) 0 unit IV.FLUSH PRN PRN PRN Reason: Flush each lumen Albumin Human (Flexbumin 25% Inj) 100 mls @ 60 mls/hr IV.SIG WITH DIALYSIS PRN PRN Reason: hypotension / volume replace Last Infusion: 06/12/18 13:10 Dose: Infused Sodium Chloride (Ns Inj) 1,000 mls @ 0 mls/hr OTHER .Q0M PRN PRN Reason: for prime and rinse back Last Admin: 06/11/18 13:40 Dose: 200 mls/hr Sodium Chloride (Ns Inj) 1,000 mls @ 200 mls/hr OTHER .Q5H PRN PRN Reason: for dialyzer flush PRN Sodium Chloride (Ns Inj) 1,000 mls @ 0 mls/hr IV.CONT .Q0M PRN PRN Reason: hypotension / volume replace Sodium Chloride (Ns Inj) 500 mls @ 0 mls/hr IV.SIG BOLUS SHALINI Last Infusion: 06/10/18 07:31 Dose: Infused Octreotide Acetate 500 mcg/ (Sodium Chloride) 500.5 mls @ 50.05 mls/hr IV.CONT .Q10H SHALINI Last Admin: 06/12/18 10:55 Dose: 50 mcg/hr, 50.05 mls/hr Lactulose (Lactulose Liq) 30 ml PO QID PENDING SALE TO [facility] Last Admin: 06/12/18 12:33 Dose: 30 ml Mannitol (Mannitol Inj) 12.5 gm IV.PUSH UNSCH PRN PRN Reason: hypotension / volume replace Metoprolol Tartrate (Lopressor) 50 mg PO BID PENDING SALE TO [facility] Last Admin: 06/12/18 09:12 Dose: Not Given Metoprolol Tartrate (Lopressor Inj) 2.5 mg IV.PUSH Q6H PRN PRN Reason: TACHYCARDIA GREATER THAN 120 Midodrine (Proamatine) 10 mg PO TID@0700,1200,1700 PENDING SALE TO [facility] Last Admin: 06/12/18 12:33 Dose: 10 mg Morphine Sulfate (Msir) 15 mg PO Q6H PRN PRN Reason: Pain 5-10 Nadolol (Corgard) 20 mg PO DAILY PENDING SALE TO [facility] Last Admin: 06/12/18 12:33 Dose: 20 mg Nitroglycerin (Nitrostat Sl) 0.4 mg SL Q5M PRN PRN Reason: CHEST PAIN Nystatin (Mycostatin Powder) 1 applicatio TOPICAL QID PENDING SALE TO [facility] Last Admin: 06/12/18 12:33 Dose: 1 applicatio Ondansetron HCl (Zofran Inj) 4 mg IV.PUSH Q6H PRN PRN Reason: NAUSEA OR VOMITING Last Admin: 06/01/18 17:27 Dose: 4 mg Ondansetron HCl (Zofran Odt) 4 mg PO Q4H PRN PRN Reason: NAUSEA Last Admin: 06/03/18 00:02 Dose: 4 mg Ondansetron HCl (Zofran Inj) 4 mg IV.PUSH UNSCH PRN PRN Reason: NAUSEA OR VOMITING Oxycodone HCl (Roxicodone) 5 mg PO Q6H PRN PRN Reason: pain 1- 5 Last Admin: 06/12/18 12:33 Dose: 5 mg Oxycodone HCl (Roxicodone) 10 mg PO Q6H PRN PRN Reason: 6-10 pain Patient Own: Harvoni (Ledipasvir/Sofosbuvir) 90/400 Tab 0 each PO DAILY PENDING SALE TO [facility] Rifaximin (Xifaxan) 550 mg PO Q12H PENDING SALE TO [facility] Last Admin: 06/12/18 10:55 Dose: 550 mg Sennosides (Senokot) 17.2 mg PO Q12H PRN PRN Reason: Moderate Constipation Sodium Chloride (Ns Flush) 5 ml IV.FLUSH PRN PRN PRN Reason: flush each lumen during HD Sodium Chloride (Ns Flush) 0 ml IV.FLUSH DAILY PENDING SALE TO [facility] Last Admin: 06/12/18 09:05 Dose: Not Given Sodium Chloride (Ns Flush) 0 ml IV.FLUSH PRN PRN PRN Reason: FLUSH AFTER USING IV ACCESS Tamsulosin HCl (Flomax) 0.4 mg PO DAILY PENDING SALE TO [facility] Last Admin: 06/10/18 08:37 Dose: 0.4 mg Torsemide (Demadex) 20 mg PO BID PENDING SALE TO [facility] Last Admin: 06/12/18 09:31 Dose: 20 mg <Jim Shea A - Last Filed: 06/12/18 16:18> Allergies Allergy/AdvReac Type Severity Reaction Status Date / Time erythromycin base Allergy Severe HIVES Verified 05/29/18 16:34 fenoprofen Allergy Severe HIVES Verified 05/29/18 16:34 Home Medications Medication Instructions Recorded Confirmed Type aspirin 325 mg PO DAILY 04/06/18 05/29/18 History atenolol 50 mg PO DAILY 04/27/18 05/29/18 History furosemide [Lasix] 40 mg PO DAILY 05/01/18 05/29/18 History ledipasvir-sofosbuvir [Harvoni] 1 tab PO QAM 05/23/18 05/29/18 History Exam Vital signs: Vital Signs 06/11/18 12:00 06/11/18 13:00 06/11/18 13:15 Temperature 98.0 F Pulse Rate 63 61 60 Respiratory Rate 10 L 9 L 10 L Blood Pressure 97/56 L 98/66 L 102/67 Pulse Oximetry 87 L 86 L 86 L 06/11/18 13:30 06/11/18 13:45 06/11/18 14:00 Temperature Pulse Rate 59 L 59 L 60 Respiratory Rate 13 10 L 9 L Blood Pressure 95/60 L 92/57 L 97/58 L Pulse Oximetry 85 L 84 L 83 L 06/11/18 14:15 06/11/18 14:30 06/11/18 14:45 Temperature Pulse Rate 60 61 62 Respiratory Rate 10 L 10 L 12 Blood Pressure 103/63 99/62 L 108/65 Pulse Oximetry 84 L 86 L 86 L 06/11/18 15:00 06/11/18 15:15 06/11/18 15:30 Temperature Pulse Rate 70 67 63 Respiratory Rate 8 L 12 12 Blood Pressure 100/63 103/65 103/62 Pulse Oximetry 81 L 87 L 86 L 06/11/18 15:45 06/11/18 16:00 06/11/18 16:15 Temperature 98.0 F Pulse Rate 62 62 61 Respiratory Rate 11 L 10 L 11 L Blood Pressure 103/59 L 110/56 L 102/57 L Pulse Oximetry 84 L 84 L 85 L 06/11/18 17:00 06/11/18 18:00 06/11/18 18:01 Temperature Pulse Rate 152 H 72 149 H Respiratory Rate 14 6 L 10 L Blood Pressure 110/65 105/66 Pulse Oximetry 88 L 86 L 87 L 06/11/18 19:00 06/11/18 19:08 06/11/18 19:17 Temperature Pulse Rate 153 H 174 H Respiratory Rate 25 H 23 Blood Pressure 102/60 Pulse Oximetry 77 L 96 84 L 06/11/18 20:00 06/11/18 20:41 06/11/18 21:00 Temperature 98.5 F Pulse Rate 74 77 67 Respiratory Rate 11 L 13 11 L Blood Pressure 82/56 L Pulse Oximetry 87 L 79 L 84 L 06/11/18 21:01 06/11/18 22:00 06/11/18 22:21 Temperature Pulse Rate 67 70 74 Respiratory Rate 10 L 10 L 17 Blood Pressure 105/61 98/64 L Pulse Oximetry 84 L 83 L 83 L 06/11/18 23:00 06/12/18 00:00 06/12/18 00:31 Temperature 98.2 F Pulse Rate 69 69 Respiratory Rate 10 L 8 L 12 Blood Pressure 97/59 L 85/55 L Pulse Oximetry 100 99 06/12/18 01:00 06/12/18 02:00 06/12/18 02:01 Temperature Pulse Rate 64 63 63 Respiratory Rate 10 L 14 11 L Blood Pressure 87/52 L 106/57 L Pulse Oximetry 99 99 99 06/12/18 03:00 06/12/18 04:00 06/12/18 06:00 Temperature 98.6 F Pulse Rate 67 60 66 Respiratory Rate 11 L 21 Blood Pressure 92/53 L 97/62 L Pulse Oximetry 100 100 06/12/18 08:00 06/12/18 10:00 Temperature 97.6 F Pulse Rate 63 59 L Respiratory Rate 11 L Blood Pressure 108/55 L Pulse Oximetry 100 Intake & Output 06/11/18 06/12/18 06/12/18 18:59 06:59 18:59 Intake Total 1300.5 / 1300.5 1220.5 / 1220.5 500.5 / 500.5 Output Total 3000 / 3000 30 30 Balance -1699.5 / -1699.5 1190.5 / 1190.5 500.5 / 500.5 Weight 98.6 kg Intake: IV 700.5 / 700.5 500.5 / 500.5 500.5 / 500.5 SandoSTATIN Inj 500 MCG In NS 500.5 / 500.5 500.5 / 500.5 500.5 / 500.5 Inj 500 ML @ 50 MCG/HR 50.05 mls/hr IV.CONT .Q10H SHALINI Rx#: [id number] Flexbumin 25% Inj 100 ML @ 60 200 / 200 mls/hr IV.SIG WITH DIALYSIS PRN Rx#:[id number] Oral 600 / 600 720 / 720 Output: Hemodialysis Amount 3000 / 3000 Urine Amount (Catheter) Indwelling Urethral Catheter Other: Date of Last Bowel Movement 06/11/18 06/12/18 06/11/18 # Bowel Movements 1 - Constitutional mild distress, obese, disheveled - Routine HEENT Exam Head: Present: normocephalic ENT: Present: mucous membranes dry - Routine Neck Exam Present: supple - Routine Respiratory Exam Present: accessory muscle use (No obvious shortness of breath at rest even, and unlabored) - Routine Cardiovascular Exam Present: S1, S2 - Routine Abdominal Exam Present: distended (Mild), firm (Semifirm, no guarding bowel sounds active) - Routine Skin Exam Present: dry, pallor - Routine Neurological Exam Present: alert (Awake currently answering simple questions about symptoms appropriately and most of his history) <Kelli Wang - Last Filed: 06/12/18 11:34> Vital signs: Vital Signs 06/11/18 17:00 06/11/18 18:00 06/11/18 18:01 Temperature Pulse Rate 152 H 72 149 H Respiratory Rate 14 6 L 10 L Blood Pressure 110/65 105/66 Pulse Oximetry 88 L 86 L 87 L 06/11/18 19:00 06/11/18 19:08 06/11/18 19:17 Temperature Pulse Rate 153 H 174 H Respiratory Rate 25 H 23 Blood Pressure 102/60 Pulse Oximetry 77 L 96 84 L 06/11/18 20:00 06/11/18 20:41 06/11/18 21:00 Temperature 98.5 F Pulse Rate 74 77 67 Respiratory Rate 11 L 13 11 L Blood Pressure 82/56 L Pulse Oximetry 87 L 79 L 84 L 06/11/18 21:01 06/11/18 22:00 06/11/18 22:21 Temperature Pulse Rate 67 70 74 Respiratory Rate 10 L 10 L 17 Blood Pressure 105/61 98/64 L Pulse Oximetry 84 L 83 L 83 L 06/11/18 23:00 06/12/18 00:00 06/12/18 00:31 Temperature 98.2 F Pulse Rate 69 69 Respiratory Rate 10 L 8 L 12 Blood Pressure 97/59 L 85/55 L Pulse Oximetry 100 99 06/12/18 01:00 06/12/18 02:00 06/12/18 02:01 Temperature Pulse Rate 64 63 63 Respiratory Rate 10 L 14 11 L Blood Pressure 87/52 L 106/57 L Pulse Oximetry 99 99 99 06/12/18 03:00 06/12/18 04:00 06/12/18 06:00 Temperature 98.6 F Pulse Rate 67 60 66 Respiratory Rate 11 L 21 Blood Pressure 92/53 L 97/62 L Pulse Oximetry 100 100 06/12/18 07:33 06/12/18 08:00 06/12/18 10:00 Temperature 97.6 F Pulse Rate 63 59 L Respiratory Rate 11 L Blood Pressure 108/55 L Pulse Oximetry 96 100 06/12/18 12:00 06/12/18 14:00 Temperature 97.7 F Pulse Rate 58 L 56 L Respiratory Rate 11 L Blood Pressure 112/56 L Pulse Oximetry 100 Intake & Output 06/11/18 06/12/18 06/12/18 18:59 06:59 18:59 Intake Total 1400.5 / 1400.5 1220.5 / 1220.5 700.5 / 700.5 Output Total 3000 / 3000 30 / 30 3500 / 3500 Balance -1599.5 / -1599.5 1190.5 / 1190.5 -2799.5 / -2799.5 Weight 98.6 kg Intake: IV 800.5 / 800.5 500.5 / 500.5 700.5 / 700.5 SandoSTATIN Inj 500 MCG In NS 500.5 / 500.5 500.5 / 500.5 500.5 / 500.5 Inj 500 ML @ 50 MCG/HR 50.05 mls/hr IV.CONT .Q10H SHALINI Rx#: [id number] Flexbumin 25% Inj 100 ML @ 60 300 / 300 200 / 200 mls/hr IV.SIG WITH DIALYSIS PRN Rx#:[id number] Oral 600 / 600 720 / 720 Output: Hemodialysis Amount 3000 / 3000 3500 / 3500 Urine Amount (Catheter) Indwelling Urethral Catheter Other: Date of Last Bowel Movement 06/11/18 06/12/18 06/11/18 # Bowel Movements 1 <Jim Shea A - Last Filed: 06/12/18 16:18> Results - Labs CBC & Chem 7: 06/12/18 05:25 06/12/18 05:25 Labs: Laboratory Results - last 24 hr 06/12/18 06/12/18 06/12/18 05:25 05:25 05:25 WBC 6.0 RBC 3.41 L Hgb 9.7 L Hct 29.4 L MCV 86.4 D MCH 28.4 MCHC 32.9 RDW 18.4 H Plt Count 93 L MPV 7.8 Prelim Diff (Auto) Slide review pending Neut % (Auto) 62.8 Lymph % (Auto) 11.8 Mathews % (Auto) 12.9 H Eos % (Auto) 11.6 H Baso % (Auto) 0.9 Neut # (Auto) 3.8 Lymph # (Auto) 0.7 L Mathews # (Auto) 0.8 Eos # (Auto) 0.7 H Baso # (Auto) 0.1 WBC Differential . Diff Scan Auto diff confirmed Differential Comment . Platelet Estimate Low L Platelet Morphology Normal Ovalocytes 1+ H PT 19.2 H INR 1.9 Sodium Potassium Chloride Carbon Dioxide Anion Gap BUN Creatinine Estimated GFR Random Glucose Calcium Phosphorus Magnesium Total Bilirubin AST ALT Alkaline Phosphatase Ammonia 27 Total Protein Albumin 06/12/18 05:25 WBC RBC Hgb Hct MCV MCH MCHC RDW Plt Count MPV Prelim Diff (Auto) Neut % (Auto) Lymph % (Auto) Mathews % (Auto) Eos % (Auto) Baso % (Auto) Neut # (Auto) Lymph # (Auto) Mathews # (Auto) Eos # (Auto) Baso # (Auto) WBC Differential Diff Scan Differential Comment Platelet Estimate Platelet Morphology Ovalocytes PT INR Sodium 138 Potassium 3.6 Chloride 101 Carbon Dioxide 28.8 Anion Gap 8 BUN 19 H Creatinine 3.38 H Estimated GFR 19 L Random Glucose 99 Calcium 8.5 Phosphorus 2.5 Magnesium 2.0 Total Bilirubin 1.8 H AST 14 L ALT 16 Alkaline Phosphatase 42 L Ammonia Total Protein 7.6 Albumin 5.0 <Kelli Wang - Last Filed: 06/12/18 11:34> - Labs CBC & Chem 7: 06/12/18 05:25 06/12/18 05:25 Labs: Laboratory Results - last 24 hr 06/12/18 06/12/18 06/12/18 05:25 05:25 05:25 WBC 6.0 RBC 3.41 L Hgb 9.7 L Hct 29.4 L MCV 86.4 D MCH 28.4 MCHC 32.9 RDW 18.4 H Plt Count 93 L MPV 7.8 Prelim Diff (Auto) Slide review pending Neut % (Auto) 62.8 Lymph % (Auto) 11.8 Mathews % (Auto) 12.9 H Eos % (Auto) 11.6 H Baso % (Auto) 0.9 Neut # (Auto) 3.8 Lymph # (Auto) 0.7 L Mathews # (Auto) 0.8 Eos # (Auto) 0.7 H Baso # (Auto) 0.1 WBC Differential . Diff Scan Auto diff confirmed Differential Comment . Platelet Estimate Low L Platelet Morphology Normal Ovalocytes 1+ H PT 19.2 H INR 1.9 Sodium Potassium Chloride Carbon Dioxide Anion Gap BUN Creatinine Estimated GFR Random Glucose Calcium Phosphorus Magnesium Total Bilirubin AST ALT Alkaline Phosphatase Ammonia 27 Total Protein Albumin 06/12/18 05:25 WBC RBC Hgb Hct MCV MCH MCHC RDW Plt Count MPV Prelim Diff (Auto) Neut % (Auto) Lymph % (Auto) Mathews % (Auto) Eos % (Auto) Baso % (Auto) Neut # (Auto) Lymph # (Auto) Mathews # (Auto) Eos # (Auto) Baso # (Auto) WBC Differential Diff Scan Differential Comment Platelet Estimate Platelet Morphology Ovalocytes PT INR Sodium 138 Potassium 3.6 Chloride 101 Carbon Dioxide 28.8 Anion Gap 8 BUN 19 H Creatinine 3.38 H Estimated GFR 19 L Random Glucose 99 Calcium 8.5 Phosphorus 2.5 Magnesium 2.0 Total Bilirubin 1.8 H AST 14 L ALT 16 Alkaline Phosphatase 42 L Ammonia Total Protein 7.6 Albumin 5.0 <Jim Shea - Last Filed: 06/12/18 16:18> Assessment and Plan (1) End stage liver disease Status: Acute Code(s): K72.90 - Hepatic failure, unspecified without coma (2) Hepatitis C antibody positive in blood Status: Acute Code(s): R76.8 - Other specified abnormal immunological findings in serum (3) Cirrhosis of liver with ascites Status: Acute Code(s): K74.60 - Unspecified cirrhosis of liver; R18.8 - Other ascites - Plan 58-year-old male who was admitted to the hospital on 05/29/2018 with abnormal blood work which included elevated potassium, sodium, BUN and creatinine. end-stage liver disease and cirrhosis diagnosed officially in 2017 according to the patient patient has been getting his medical care and follow-ups at the [facility] and according to the record and the patient he has been placed on a transplant list Harvoni 4 weeks for his hepatitis C through the [facility]. abdomen has a full sensation but denies any abdominal pain and no acute changes over the past few weeks. Patient currently notes decreased appetite but no obvious nausea or vomiting or dyspepsia. Patient states he has multiple bowel movements at least 2 a day and denies any constipation. Anemia, probable secondary to his chronic disease. No obvious GI bleeding Current labs show hemoglobin 9.7, platelet count 93, PT/INR 1.9, BUN 19, creatinine 3.38, GFR 19. On 06/06/2018 dialysis catheter was placed and patient is now receiving hemodialysis 3 times a week. Other labs include total bilirubin 1.8, AST 14 ALT 16, alkaline phosphatase 42, and hepatitis C IgG antibody reactive, ammonia level 27. Patient states last colonoscopy was in the [place] area approximately 2 and half years ago and states he feels he had an EGD many years ago. He notes that he does have an appointment in the [facility]. patient denies any family history of colon cancer but states his dad did at the age of 79 with esophageal cancer. Ultrasound of the abdomen and bladder showed perihepatic ascites. Currently patient is receiving dialysis 3 times a week with fluid removal which appears to be controlling any increase in his abdominal ascites. Plan Diet as tolerated Monitor labs with special attention to patient's level of ascites Transfuse if necessary Supportive care Harvoni Rifaximin Demadex Demadex Added Nadolol 20 mh. daily. Lactulose 4 times a day Further recommendations to follow Patient was seen per myself and Dr. Shea, note was written on his behalf <Kelli Wang - Last Filed: 06/12/18 11:34> (1) End stage liver disease Status: Acute Code(s): K72.90 - Hepatic failure, unspecified without coma (2) Hepatitis C antibody positive in blood Status: Acute Code(s): R76.8 - Other specified abnormal immunological findings in serum (3) Cirrhosis of liver with ascites Status: Acute Code(s): K74.60 - Unspecified cirrhosis of liver; R18.8 - Other ascites - Attending Attestation Seen and examined, plan as above, no acute intervention needed from GI point of view, will follow up with you periodically. <Jim Shea - Last Filed: 06/12/18 16:18>
[2018-06-12] MEDS: Nadolol 20 MG Tablet PO SCH (12:33)
[2018-06-12] MEDS: Albumin Human 25% Inj 100 ML IV.SIG PRN ×2 (13:06→13:08)
[2018-06-12] MEDS: Heparin 10,000 UNITS/10 ML Vial (for IV use) OTHER PRN (13:07)
--- NOTE | 2018-06-12 13:07 | P.PNNP ---
Subjective Interval history: Patient is on dialysis Physical Exam Vital signs: Vital Signs 06/11/18 13:15 06/11/18 13:30 06/11/18 13:45 Temperature Pulse Rate 60 59 L 59 L Respiratory Rate 10 L 13 10 L Blood Pressure 102/67 95/60 L 92/57 L Pulse Oximetry 86 L 85 L 84 L 06/11/18 14:00 06/11/18 14:15 06/11/18 14:30 Temperature Pulse Rate 60 60 61 Respiratory Rate 9 L 10 L 10 L Blood Pressure 97/58 L 103/63 99/62 L Pulse Oximetry 83 L 84 L 86 L 06/11/18 14:45 06/11/18 15:00 06/11/18 15:15 Temperature Pulse Rate 62 70 67 Respiratory Rate 12 8 L 12 Blood Pressure 108/65 100/63 103/65 Pulse Oximetry 86 L 81 L 87 L 06/11/18 15:30 06/11/18 15:45 06/11/18 16:00 Temperature 98.0 F Pulse Rate 63 62 62 Respiratory Rate 12 11 L 10 L Blood Pressure 103/62 103/59 L 110/56 L Pulse Oximetry 86 L 84 L 84 L 06/11/18 16:15 06/11/18 17:00 06/11/18 18:00 Temperature Pulse Rate 61 152 H 72 Respiratory Rate 11 L 14 6 L Blood Pressure 102/57 L 110/65 Pulse Oximetry 85 L 88 L 86 L 06/11/18 18:01 06/11/18 19:00 06/11/18 19:08 Temperature Pulse Rate 149 H 153 H Respiratory Rate 10 L 25 H Blood Pressure 105/66 Pulse Oximetry 87 L 77 L 96 06/11/18 19:17 06/11/18 20:00 06/11/18 20:41 Temperature 98.5 F Pulse Rate 174 H 74 77 Respiratory Rate 23 11 L 13 Blood Pressure 102/60 82/56 L Pulse Oximetry 84 L 87 L 79 L 06/11/18 21:00 06/11/18 21:01 06/11/18 22:00 Temperature Pulse Rate 67 67 70 Respiratory Rate 11 L 10 L 10 L Blood Pressure 105/61 Pulse Oximetry 84 L 84 L 83 L 06/11/18 22:21 06/11/18 23:00 06/12/18 00:00 Temperature 98.2 F Pulse Rate 74 69 69 Respiratory Rate 17 10 L 8 L Blood Pressure 98/64 L 97/59 L 85/55 L Pulse Oximetry 83 L 100 99 06/12/18 00:31 06/12/18 01:00 06/12/18 02:00 Temperature Pulse Rate 64 63 Respiratory Rate 12 10 L 14 Blood Pressure 87/52 L Pulse Oximetry 99 99 06/12/18 02:01 06/12/18 03:00 06/12/18 04:00 Temperature 98.6 F Pulse Rate 63 67 60 Respiratory Rate 11 L 11 L 21 Blood Pressure 106/57 L 92/53 L 97/62 L Pulse Oximetry 99 100 100 06/12/18 06:00 06/12/18 07:33 06/12/18 08:00 Temperature 97.6 F Pulse Rate 66 63 Respiratory Rate 11 L Blood Pressure 108/55 L Pulse Oximetry 96 100 06/12/18 10:00 Temperature Pulse Rate 59 L Respiratory Rate Blood Pressure Pulse Oximetry Intake & Output 06/11/18 06/12/18 06/12/18 18:59 06:59 18:59 Intake Total 1300.5 / 1300.5 1220.5 / 1220.5 500.5 / 500.5 Output Total 3000 / 3000 Balance -1699.5 / -1699.5 1190.5 / 1190.5 500.5 / 500.5 Weight 98.6 kg Intake: IV 700.5 / 700.5 500.5 / 500.5 500.5 / 500.5 SandoSTATIN Inj 500 MCG In NS 500.5 / 500.5 500.5 / 500.5 500.5 / 500.5 Inj 500 ML @ 50 MCG/HR 50.05 mls/hr IV.CONT .Q10H SHALINI Rx#: [id number] Flexbumin 25% Inj 100 ML @ 60 200 / 200 mls/hr IV.SIG WITH DIALYSIS PRN Rx#:[id number] Oral 600 / 600 720 / 720 Output: Hemodialysis Amount 3000 / 3000 Urine Amount (Catheter) Indwelling Urethral Catheter Other: Date of Last Bowel Movement 06/11/18 06/12/18 06/11/18 # Bowel Movements 1 - Constitutional chronically ill appearing - Routine HEENT Exam Head: Present: normocephalic - Routine Neck Exam Present: supple - Routine Respiratory Exam Present: decreased breath sounds - Routine Cardiovascular Exam Present: RRR - Routine Abdominal Exam Present: soft, distended - Routine Extremities Exam Present: edema - Urinary Catheter Management Indwelling Urethral Catheter Cath placed during this visit: yes Reason for continuing: Acute urinary retention Insertion date: 06/04/18 Insertion time: 18:15 Assessment and Plan - Assessment (1) Acute renal failure superimposed on stage 3 chronic kidney disease Code(s): N17.9 - Acute kidney failure, unspecified; N18.3 - Chronic kidney disease, stage 3 (moderate) Status: Acute (2) Hyponatremia Code(s): E87.1 - Hypo-osmolality and hyponatremia Status: Acute (3) Cirrhosis Code(s): K74.60 - Unspecified cirrhosis of liver Status: Acute - Plan Worsening azotemia: Creatinine was elevated and ended up on hemodialysis Urine sodium low hepatorenal syndrome patient with HCV cirrhosis and on transplant list at [place] He remains on nasal cannula Seen during hemodialysis 3-4 L plan but his blood pressure is low and up getting 3 L or less Patient seen by GI they are aware that he is on transplant list I did not receive any calls from his doctor from [place] Continue to do dialysis He will need permacath placement Follow up with GI for long-term care Poor prognosis
--- NOTE | 2018-06-12 17:47 | P.PNPL ---
Subjective Interval history: 58 YOWM with Cirrhosis of liver, renal failure used CPAp Less tired Up in chair, on NC breathing betetr Physical Exam Vital signs: Vital Signs 06/11/18 18:00 06/11/18 18:01 06/11/18 19:00 Temperature Pulse Rate 72 149 H 153 H Respiratory Rate 6 L 10 L 25 H Blood Pressure 105/66 Pulse Oximetry 86 L 87 L 77 L 06/11/18 19:08 06/11/18 19:17 06/11/18 20:00 Temperature 98.5 F Pulse Rate 174 H 74 Respiratory Rate 23 11 L Blood Pressure 102/60 Pulse Oximetry 96 84 L 87 L 06/11/18 20:41 06/11/18 21:00 06/11/18 21:01 Temperature Pulse Rate 77 67 67 Respiratory Rate 13 11 L 10 L Blood Pressure 82/56 L 105/61 Pulse Oximetry 79 L 84 L 84 L 06/11/18 22:00 06/11/18 22:21 06/11/18 23:00 Temperature Pulse Rate 70 74 69 Respiratory Rate 10 L 17 10 L Blood Pressure 98/64 L 97/59 L Pulse Oximetry 83 L 83 L 100 06/12/18 00:00 06/12/18 00:31 06/12/18 01:00 Temperature 98.2 F Pulse Rate 69 64 Respiratory Rate 8 L 12 10 L Blood Pressure 85/55 L 87/52 L Pulse Oximetry 99 99 06/12/18 02:00 06/12/18 02:01 06/12/18 03:00 Temperature Pulse Rate 63 63 67 Respiratory Rate 14 11 L 11 L Blood Pressure 106/57 L 92/53 L Pulse Oximetry 99 99 100 06/12/18 04:00 06/12/18 06:00 06/12/18 07:33 Temperature 98.6 F Pulse Rate 60 66 Respiratory Rate 21 Blood Pressure 97/62 L Pulse Oximetry 100 96 06/12/18 08:00 06/12/18 10:00 06/12/18 12:00 Temperature 97.6 F 97.7 F Pulse Rate 63 59 L 58 L Respiratory Rate 11 L 11 L Blood Pressure 108/55 L 112/56 L Pulse Oximetry 100 100 06/12/18 14:00 06/12/18 16:00 Temperature 97.8 F Pulse Rate 56 L 63 Respiratory Rate 12 Blood Pressure 115/60 Pulse Oximetry 99 Intake & Output 09/10/18 09/11/18 09/11/18 18:59 06:59 18:59 Intake Total 1400.5 / 1400.5 1220.5 / 1220.5 700.5 / 700.5 Output Total 3000 / 3000 / 30 3500 / 3500 Balance -1599.5 / -1599.5 1190.5 / 1190.5 -2799.5 / -2799.5 Weight 98.6 kg Intake: IV 800.5 / 800.5 500.5 / 500.5 700.5 / 700.5 SandoSTATIN Inj 500 MCG In NS 500.5 / 500.5 500.5 / 500.5 500.5 / 500.5 Inj 500 ML @ 50 MCG/HR 50.05 mls/hr IV.CONT .Q10H SHALINI Rx#: [id number] Flexbumin 25% Inj 100 ML @ 60 300 / 300 200 / 200 mls/hr IV.SIG WITH DIALYSIS PRN Rx#:[id number] Oral 600 / 600 720 / 720 Output: Hemodialysis Amount 3000 / 3000 3500 / 3500 Urine Amount (Catheter) Indwelling Urethral Catheter Other: Date of Last Bowel Movement 06/11/18 06/12/18 06/11/18 # Bowel Movements 1 GENERAL: Elderly WM, mild sob SKIN: Warm and dry. HEAD: Normocephalic. EYES: No scleral icterus. No injection or drainage. NECK: Supple, trachea midline. No JVD or lymphadenopathy. CARDIOVASCULAR: Regular rate and rhythm without murmurs, gallops, or rubs. RESPIRATORY: Breath sounds equal bilaterally. No accessory muscle use. GASTROINTESTINAL: Abdomen soft, non-tender, nondistended. MUSCULOSKELETAL: No cyanosis, or edema. BACK: Nontender without obvious deformity. No CVA tenderness. - Urinary Catheter Management Indwelling Urethral Catheter Cath placed during this visit: yes Reason for continuing: Acute urinary retention Insertion date: 06/04/18 Insertion time: 18:15 Assessment and Plan - Plan IMPRESSION: 1. Shortness of breath with respiratory acidosis, significantly improved now. 2. Fluid overload. 3. Renal failure. 4. Cirrhosis of the liver. 5. Hepatitis C. 6. Aortic valve replacement. 7. Coronary disease, status post coronary artery bypass graft. PLAN: CPAP at night and PRN Supplement 02 SQ Heparin HD per renal Monitor rita
[2018-06-13 04:01] LABS: Baso # (Auto) 0.1 th/mm3 (0.0-0.2); Baso % (Auto) 1.3 % (0.0-2.0); Eos # (Auto) 0.8 th/mm3 (0.0-0.4); Eos % (Auto) 13.7 % (0.0-4.0); Hematocrit 28.5 % (39.0-51.0); Hemoglobin 9.4 gm/dL (13.0-17.0); Lymph # (Auto) 0.9 th/mm3 (1.0-4.8); Lymph % (Auto) 15.8 % (9.0-44.0); Mean Corpuscular HGB Conc 32.9 % (32.0-36.0); Mean Corpuscular Hemoglobin 28.3 pg (27.0-34.0); Mean Platelet Volume 7.2 fL (7.0-11.0); Mono # (Auto) 0.7 th/mm3 (0.0-0.9); Mono % (Auto) 12.2 % (0.0-8.0); Neut # (Auto) 3.2 th/mm3 (1.8-7.7); Platelet Count 84 th/mm3 (150-450); Red Blood Count 3.31 mil/mm3 (4.50-5.90); Red Cell Distribution Width 18.8 % (11.6-17.2); White Blood Count 5.7 th/mm3 (4.0-11.0)
[2018-06-13 04:13] LABS: INR 1.9 Ratio
[2018-06-13 04:23] LABS: Alanine Aminotransferase 15 U/L (12-78); Albumin 5.2 g/dL (3.4-5.0); Anion Gap 10 meq/L (5-15); Aspartate Aminotransferase 14 U/L (15-37); Blood Urea Nitrogen 18 mg/dL (7-18); Calcium 8.5 mg/dL (8.5-10.1); Carbon Dioxide 27.7 meq/L (21.0-32.0); Chloride 102 meq/L (98-107); Glomerular Filtration Rate 18 mL/min (>89); Glucose,Random 97 mg/dL (74-106); Phosphorus 2.5 mg/dL (2.5-4.9); Potassium 3.2 meq/L (3.5-5.1); Sodium 140 meq/L (136-145)
[2018-06-13 04:26] LABS: Alkaline Phosphatase 39 U/L (45-117); Total Protein 7.2 g/dL (6.4-8.2)
[2018-06-13 05:06] LABS: Platelet Morphology Normal (Normal)
[2018-06-13 05:07] LABS: Acanthocytes 1+; Ovalocytes 1+
[2018-06-13] MEDS: Octreotide Inj 500 MCG in Sodium Chlor 0.9% Inj 500 ML IV.CONT SCH ×2 (07:22→11:20)
[2018-06-13] MEDS: HARVONI PO SCH (08:07)
[2018-06-13] MEDS: Torsemide 20 MG Tablet PO SCH ×2 (08:07→20:42)
[2018-06-13] MEDS: Heparin Central Flush 100 UNIT/ML 5 ML Vial IV.FLUSH SCH (08:07)
[2018-06-13] MEDS: Nystatin 100,000 UNITS/GM Powder 15 GM Bottle TOPICAL SCH ×4 (08:07→20:46)
[2018-06-13] MEDS: Metoprolol Tartrate 50 MG Tablet PO SCH ×2 (08:07→20:42)
[2018-06-13] MEDS: Nadolol 20 MG Tablet PO SCH (08:07)
[2018-06-13] MEDS: Heparin - SQ 10,000 UNITS/ML Vial SQ SCH ×2 (08:07→20:42)
--- NOTE | 2018-06-13 08:20 | P.PN ---
Subjective Interval history: Mr. Boogie is a pleasant 58-year-old male with a history of liver cirrhosis, chronic kidney disease, hepatitis C on Harvoni, aortic valve replacement who presented to the emergency department after he had a routine blood work that shows elevated potassium decreased sodium and elevated creatinine. Patient denies any chest pain, shortness of breath, fever or chills. However he does report increased abdominal distention and pain. He is on liver transplant list. He follows up with CT physicians. On arrival patient 's BMP shows sodium 128, potassium 5.7, BUN 56 and creatinine 2.5. Patient was given insulin and dextrose as well as calcium. Although his potassium improved to 4.9, in the morning on 05/30/2018 his potassium went back up again at 5.8. Creatinine has remained 2.5 despite IV hydration. Past medical history: Congenital heart disease with bicuspid aortic valve status post aortic valve replacement, liver cirrhosis, hepatitis C Past surgical history: Cholecystectomy, knee surgery, aortic valve replacement, lung surgery, CABG, back surgery Social history: Patient denies using tobacco, alcohol, illicit drugs. Family history. Mother, brother and sisters with diabetes mellitus. 8-30 Follow up for hepatorenal syndrome in a patient with Hep C, Cirrhosis. Patient is doing well. However, he complains of significant abdominal pain. No fever, chills. 8-31 Follow up for hepatorenal syndrome in a patient with Hep C, Cirrhosis. Patient is resting in bed, no acute concerns. No fever, chills. No CP, SOB. He had an episode of Afib. Apparently, he has had intermittent Afib before as well. He has been evaluated by a Director Life before. 9-1 Follow up for hepatorenal syndrome in a patient with Hep C, Cirrhosis. Patient reports anasarca and significant pain in his lower extremity joints. No fever, chills. 9-2 Follow up for hepatorenal syndrome. Patient complains of anasarca and difficulty initiating urination. No CP, fever, chills. 9-3 Follow-up for tunnel syndrome. Patient is currently doing well. He actually feels somewhat better today. Per nursing, however, he is not urinating and bladder scan shows no significant amount of urine in the bladder. This indicates the patient's renal function is getting worse and he is becoming anuric. We initiated a transfer to the main hospital yesterday. 06-05 PATIENT HAS BEEN TRANSFERRED FROM [place] FOR RENAL EVALUATIONS REMAINS CONFUSED WILL CHECK AMMONIA LEVEL TODAY AND TOMORROW PT AND OT TO EVAL AND TREAT HAD ABG DONE TODAY LOW BICARB REMAINS SOMEWHAT CONFUSED STILL DW RN AND PT AND FAMILY -5 IS IN ATRIAL FLUTTER-TACHYCARDIA LESS CONFUSED PT AND OT DW RN AND PT AND WILL TRY TO IMPROVE HEART RATE AM LABS - STARTED ON hemodialysis yesterday Had catheter placed on 95 for dialysis Feeling little better today Less confused Heart rate is better Having dialysis again today Hypokalemia is being replaced by potassium bath Discussed with patient and RN and insurance processor 9- HAD DIALYSIS ON 06-06 AND 06-07 LESS SWELLING MEDICATIONS ADJUSTED BY NEPHROLOGY FAMILY AT BEDSIDE QUESTIONS ANSWERED - HAVING HD TODAY LESS SWELLING MEDS BEING ADJUSTED DW RN AND PT - REMAINS ON BIPAP LESS SWELLING BECAME HYPOTENSIVE EARLIER TODAY GIVEN FLUID BOLUS MEDS ADJUSTED BY NEPHROLOGY HOPE DOES NOT HAVE TO GO ON VENT HAD HD YESTERDAY BUT IS STILL SOB WILL CONSULT PULMONARY 06-11 OFF BIPAP SEEN BY PULMONARY TO HAVE HD LATER TODAY DW PATIENT AND RN AND FAMILY AM LABS 06-12 SEEN BY GI NO NEW COMPLAINTS DEFER TO THEM ON HEPATITIS AND CIRRHOSIS MANAGEMENT AM LABS HAD HD SCHEDULED ON MONDAY, MON AND 06-13 In the chair. Says he feels improving today. With anasarca. With some sob and nonproductive cough no fever or chills. HD today. On 3L by NC, sating well. Physical Exam Vital signs: Vital Signs 06/12/18 09:12 06/12/18 10:00 06/12/18 11:00 Temperature Pulse Rate 59 L 102 H Respiratory Rate 9 L 17 Blood Pressure 93/52 L 99/58 L 99/59 L Pulse Oximetry 98 06/12/18 12:00 06/12/18 12:01 06/12/18 12:45 Temperature 97.7 F Pulse Rate 58 L 77 66 Respiratory Rate 11 L 11 L 16 Blood Pressure 112/56 L 112/56 L 92/61 L Pulse Oximetry 55 L 53 L 06/12/18 13:00 06/12/18 13:16 06/12/18 13:30 Temperature Pulse Rate 62 164 H 57 L Respiratory Rate 9 L 21 11 L Blood Pressure 89/52 L 127/51 L 115/58 L Pulse Oximetry 82 L 100 09/11/18 13:48 06/12/18 14:00 06/12/18 14:15 Temperature Pulse Rate 57 L 56 L 56 L Respiratory Rate 11 L 9 L 11 L Blood Pressure 103/57 L 103/64 107/62 Pulse Oximetry 99 100 100 06/12/18 14:30 06/12/18 14:45 06/12/18 15:00 Temperature Pulse Rate 56 L 57 L 55 L Respiratory Rate 11 L 11 L 11 L Blood Pressure 105/56 L 105/56 L 108/60 Pulse Oximetry 100 100 100 06/12/18 15:18 06/12/18 15:31 06/12/18 15:45 Temperature Pulse Rate 58 L 58 L 62 Respiratory Rate 12 12 10 L Blood Pressure 117/58 L 114/55 L 118/58 L Pulse Oximetry 100 100 100 06/12/18 16:00 06/12/18 17:00 06/12/18 17:01 Temperature 97.8 F Pulse Rate 63 132 H 138 H Respiratory Rate 12 21 18 Blood Pressure 115/60 111/59 L Pulse Oximetry 99 100 87 L 06/12/18 18:00 06/12/18 18:01 06/12/18 19:00 Temperature Pulse Rate 64 64 146 H Respiratory Rate 15 16 14 Blood Pressure 123/59 L Pulse Oximetry 84 L 06/12/18 19:01 06/12/18 20:00 06/12/18 20:01 Temperature 98.6 F Pulse Rate 156 H 63 63 Respiratory Rate 13 11 L 8 L Blood Pressure 95/52 L 104/60 Pulse Oximetry 76 L 90 L 91 L 06/12/18 20:09 06/12/18 20:48 06/12/18 21:00 Temperature Pulse Rate 66 Respiratory Rate 12 14 Blood Pressure 104/58 L Pulse Oximetry 100 100 06/12/18 22:00 06/12/18 22:01 06/12/18 23:00 Temperature Pulse Rate 182 H 144 H 63 Respiratory Rate 13 15 13 Blood Pressure 110/48 L 110/68 Pulse Oximetry 89 L 83 L 95 06/13/18 00:00 06/13/18 00:01 06/13/18 01:00 Temperature 98.6 F Pulse Rate 62 62 61 Respiratory Rate 15 13 13 Blood Pressure 108/57 L 102/61 Pulse Oximetry 100 94 L 97 06/13/18 02:00 06/13/18 03:00 06/13/18 04:00 Temperature 98.6 F Pulse Rate 58 L 58 L 58 L Respiratory Rate 14 9 L 10 L Blood Pressure 101/56 L 102/57 L 104/56 L Pulse Oximetry 100 99 99 06/13/18 06:00 Temperature Pulse Rate 58 L Respiratory Rate Blood Pressure Pulse Oximetry Intake & Output 06/12/18 06/13/18 06/13/18 18:59 06:59 18:59 Intake Total 1180.5 / 1180.5 740.5 / 740.5 Output Total 3510 / 3510 Balance -2329.5 / -2329.5 740.5 / 740.5 Weight 95.9 kg Intake: IV 700.5 / 700.5 500.5 / 500.5 SandoSTATIN Inj 500 MCG In NS 500.5 / 500.5 500.5 / 500.5 Inj 500 ML @ 50 MCG/HR 50.05 mls/hr IV.CONT .Q10H SHALINI Rx#: [id number] Flexbumin 25% Inj 100 ML @ 60 200 / 200 mls/hr IV.SIG WITH DIALYSIS PRN Rx#:[id number] Oral 480 / 480 240 / 240 Output: Hemodialysis Amount 3500 / 3500 Urine Amount (Catheter) Indwelling Urethral Catheter Other: Date of Last Bowel Movement 06/12/18 06/12/18 # Bowel Movements 1 1 Narrative: GENERAL: Alert, Oriented x 3, appears in NAD. SKIN: Warm and dry. Anasarca present EYES: No scleral icterus. No injection or drainage. NECK: Supple, trachea midline. No JVD or lymphadenopathy. CARDIOVASCULAR: Regular rate and rhythm without murmurs, gallops, or rubs. S1- S2 no S3 or S4 RESPIRATORY: Breath sounds equal bilaterally. No accessory muscle use. GASTROINTESTINAL: Abdomen distended, nontender to palpation good bowel sounds throughout soft nontender MUSCULOSKELETAL: No cyanosis. LESS edema in upper and lower ext. +1 in upper extremity and lower extremity bilaterally BACK: Nontender without obvious deformity. No CVA tenderness. Insight and judgment is limited. Mood and behavior is somewhat appropriate. - Urinary Catheter Management Indwelling Urethral Catheter Cath placed during this visit: yes Reason for continuing: Acute urinary retention Insertion date: 09/03/18 Insertion time: 18:15 Results - Labs CBC & Chem 7: 06/13/18 03:42 06/13/18 03:42 Laboratory Results - last 24 hr 06/13/18 06/13/18 06/13/18 03:42 03:42 03:42 WBC 5.7 RBC 3.31 L Hgb 9.4 L Hct 28.5 L MCV 86.0 MCH 28.3 MCHC 32.9 RDW 18.8 H Plt Count 84 L MPV 7.2 Prelim Diff (Auto) Slide review pending Neut % (Auto) 57.0 Lymph % (Auto) 15.8 [place] % (Auto) 12.2 H Eos % (Auto) 13.7 H Baso % (Auto) 1.3 Neut # (Auto) 3.2 Lymph # (Auto) 0.9 L [place] # (Auto) 0.7 Eos # (Auto) 0.8 H Baso # (Auto) 0.1 WBC Differential . Diff Scan Auto diff confirmed Differential Comment . Platelet Estimate Low L Platelet Morphology Normal Ovalocytes 1+ H Acanthocytes (Spur) 1+ H Keratocytes Occ H PT 19.0 H INR 1.9 Sodium Potassium Chloride Carbon Dioxide Anion Gap BUN Creatinine Estimated GFR Random Glucose Calcium Phosphorus Magnesium Total Bilirubin AST ALT Alkaline Phosphatase Ammonia 41 H Total Protein Albumin 06/13/18 03:42 WBC RBC Hgb Hct MCV MCH MCHC RDW Plt Count MPV Prelim Diff (Auto) Neut % (Auto) Lymph % (Auto) [place] % (Auto) Eos % (Auto) Baso % (Auto) Neut # (Auto) Lymph # (Auto) [place] # (Auto) Eos # (Auto) Baso # (Auto) WBC Differential Diff Scan Differential Comment Platelet Estimate Platelet Morphology Ovalocytes Acanthocytes (Spur) Keratocytes PT INR Sodium 140 Potassium 3.2 L Chloride 102 Carbon Dioxide 27.7 Anion Gap 10 BUN 18 Creatinine 3.45 H Estimated GFR 18 L Random Glucose 97 Calcium 8.5 Phosphorus 2.5 Magnesium 2.0 Total Bilirubin 1.9 H AST 14 L ALT 15 Alkaline Phosphatase 39 L Ammonia Total Protein 7.2 Albumin 5.2 H - Procedures EXAM DATE: 06/06/2018 4:32 PM EDT AGE/SEX: 58 years / Male INDICATIONS: Patient with history of chronic kidney disease in need of non tunneled dialysis catheter CLINICAL DATA: This is the patient's initial encounter. Patient reports that signs and symptoms have been present for 1 week and indicates a pain score of 8/ 10. MEDICAL/SURGICAL HISTORY: Hepatitis C. Liver cirrhosis, CKD, CAD, A-Fib, HLD, HTN, COPD, [place], CHF, Raynauds syndrome Cholecystectomy. Aortic valve replacement, Knee surgery, CABG, Lung surgery, Back surgery COMPARISON: No prior exams available for comparison. FLUORO TIME (min): 0.1 IMAGE SERIES: 1 ACCESS SITE: Right internal jugular vein DEVICE(S): 14 [place] double lumen X20CM Schon catheter . . PROCEDURE : 1. Ultrasound guided venipuncture. 2. Fluoroscopic guidance. 3. Central line placement. The risks, benefits and alternatives to the procedure were explained and verbal and written consent was obtained. The site was prepped in sterile fashion. Full sterile technique was used, including cap, mask, sterile gloves and gown and a large sterile sheet. Hand hygiene and 2% chlorhexidine prep was utilized per protocol for cutaneous antisepsis with appropriate dry time for site. Sterile gel and sterile probe cover were utilized for ultrasound guidance. The skin and subcutaneous tissues were infiltrated with local anesthetic solution. A suitable site above the vein was selected with ultrasound and fluoroscopic guidance. A small incision was made. The vein was accessed under direct ultrasound visualization using the micropuncture technique. The micropuncture set was exchanged for a 0.035 wire. The tract was dilated. The catheter was advanced into position under direct fluoroscopic visualization, and was advanced with the tip at the junction of the superior vena cava and rt atrium. The catheter was fixed in place with suture and a sterile dressing was applied. The patient tolerated the procedure well and there were no complications. CONCLUSION: 1. Uncomplicated line placement as above. Electronically signed by: Joe Garcia MD 06/07/2018 9:37 AM EDT Undergoing hemodialysis so far on and 96 AND 06-09 Assessment and Plan - Plan Mr. Boogie is a pleasant 58-year-old male with a history of hepatitis C on Harvoni, CKD who was admitted to the hospital after he had a blood work at the CT which shows hypokalemia and worsening creatinine. Acute on chronic kidney disease Hyperkalemia Hyponatremia -Creatinine 2.5 --> 1.80 --> 1.90 ==> 2.2 ==> 2.9 ==> 3.7 NOW IS 4.26-- NOW 3.9 His baseline creatinine is about 1.4-1.6. -Is being given Lasix 80 mg IV twice daily as well as Zaroxolyn and ProAmatine -Potassium has improved. -Discussed with Nephrology on 06/03/2018. . -transfer patient to the main hospital. -Continue Midodrine, albumin and Octreotide. -May need at least transient dialysis. REMAINS CONFUSED CHECK AMMONIA NOW AND TOMORROW Acute renal failure status post chemo dialysis catheter placed on 95 Status post hemodialysis on 06-06 and repeat hemodialysis on 96 Hypokalemia replace with potassium bath during hemodialysis WATCH ELECTROLYTES Paroxysmal Atrial fibrillation -Patient takes Atenolol at home. Continue Metoprolol 25mg BID. -[id number] score 0. Although Aspirin would be beneficial, given his liver cirrhosis, it maybe risky to start Aspirin. -Patient will discuss with his global marketing specialist after hospitalization. Liver cirrhosis Hepatitis C COAGULOPATHY -Patient is currently on Harvoni. Abdominal ultrasound did not reveal enough ascites to drain. -Patient follows up with CT with regards to liver transplant. - Morphine for abdominal pain. -Ammonia level is increased will make sure he is on lactulose may have to add rifaximin and increase lactulose to 3 times daily-ammonia level is still increased will monitor Full code. INR is 1.7 due to liver disease. Will start patient on Heparin 5000 unit SQ Q12hrs for DVT prophylaxis. PT AND OT TO EVAL AND TREAT consult pulmonary OXYGEN NEEDED BIPAP AT NIGHT AND FOR NAPS HD PER NEPHROLOGY WILL NEED FOLLOW UP WITH CT CLINIC AFTER DISCHARGE Code Status: FULL CODE Discussed Condition With: PATIENT AND RN AND GI Discharge Planning: PENDING IMPROVEMENT Transfer to med surg floor
[2018-06-13] MEDS: rifAXIMin 550 MG Tablet PO SCH (12:09)
--- NOTE | 2018-06-13 13:06 | P.PNGI ---
Subjective Interval history: Pt in bedside chair. Complaining of swelling to all extremities. Denies nausea, vomiting. Has been having a few loose stools, denies hematochezia and melena. Complaining of abdominal cramping with the Lactulose. Denies abdominal pain. <Mar Lucero - Last Filed: 06/13/18 13:08> Physical Exam Vital signs: Vital Signs 06/12/18 13:00 06/12/18 13:16 06/12/18 13:30 Temperature Pulse Rate 62 164 H 57 L Respiratory Rate 9 L 21 11 L Blood Pressure 89/52 L 127/51 L 115/58 L Pulse Oximetry 82 L 100 06/12/18 13:48 06/12/18 14:00 06/12/18 14:15 Temperature Pulse Rate 57 L 56 L 56 L Respiratory Rate 11 L 9 L 11 L Blood Pressure 103/57 L 103/64 107/62 Pulse Oximetry 99 100 100 06/12/18 14:30 06/12/18 14:45 06/12/18 15:00 Temperature Pulse Rate 56 L 57 L 55 L Respiratory Rate 11 L 11 L 11 L Blood Pressure 105/56 L 105/56 L 108/60 Pulse Oximetry 100 100 100 06/12/18 15:18 06/12/18 15:31 06/12/18 15:45 Temperature Pulse Rate 58 L 58 L 62 Respiratory Rate 12 12 10 L Blood Pressure 117/58 L 114/55 L 118/58 L Pulse Oximetry 100 100 100 06/12/18 16:00 06/12/18 17:00 06/12/18 17:01 Temperature 97.8 F Pulse Rate 63 132 H 138 H Respiratory Rate 12 21 18 Blood Pressure 115/60 111/59 L Pulse Oximetry 99 100 87 L 06/12/18 18:00 06/12/18 18:01 06/12/18 19:00 Temperature Pulse Rate 64 64 146 H Respiratory Rate 15 16 14 Blood Pressure 123/59 L Pulse Oximetry 84 L 06/12/18 19:01 06/12/18 20:00 06/12/18 20:01 Temperature 98.6 F Pulse Rate 156 H 63 63 Respiratory Rate 13 11 L 8 L Blood Pressure 95/52 L 104/60 Pulse Oximetry 76 L 90 L 91 L 06/12/18 20:09 06/12/18 20:48 06/12/18 21:00 Temperature Pulse Rate 66 Respiratory Rate 12 14 Blood Pressure 104/58 L Pulse Oximetry 100 100 06/12/18 22:00 06/12/18 22:01 06/12/18 23:00 Temperature Pulse Rate 182 H 144 H 63 Respiratory Rate 13 15 13 Blood Pressure 110/48 L 110/68 Pulse Oximetry 89 L 83 L 95 06/13/18 00:00 06/13/18 00:01 06/13/18 01:00 Temperature 98.6 F Pulse Rate 62 62 61 Respiratory Rate 15 13 13 Blood Pressure 108/57 L 102/61 Pulse Oximetry 100 94 L 97 06/13/18 02:00 06/13/18 03:00 06/13/18 04:00 Temperature 98.6 F Pulse Rate 58 L 58 L 58 L Respiratory Rate 14 9 L 10 L Blood Pressure 101/56 L 102/57 L 104/56 L Pulse Oximetry 100 99 99 06/13/18 06:00 06/13/18 08:00 06/13/18 10:00 Temperature 98.7 F Pulse Rate 58 L 60 60 Respiratory Rate 7 L Blood Pressure 108/59 L Pulse Oximetry 100 06/13/18 12:08 Temperature Pulse Rate Respiratory Rate Blood Pressure Pulse Oximetry 95 Intake & Output 06/12/18 06/13/18 06/13/18 18:59 06:59 18:59 Intake Total 1180.5 / 1180.5 740.5 / 740.5 Output Total 3510 / 3510 Balance -2329.5 / -2329.5 740.5 / 740.5 Weight 95.9 kg Intake: IV 700.5 / 700.5 500.5 / 500.5 SandoSTATIN Inj 500 MCG In NS 500.5 / 500.5 500.5 / 500.5 Inj 500 ML @ 50 MCG/HR 50.05 mls/hr IV.CONT .Q10H SHALINI Rx#: [id number] Flexbumin 25% Inj 100 ML @ 60 200 / 200 mls/hr IV.SIG WITH DIALYSIS PRN Rx#:[id number] Oral 480 / 480 240 / 240 Output: Hemodialysis Amount 3500 / 3500 Urine Amount (Catheter) Indwelling Urethral Catheter Other: Date of Last Bowel Movement 09/11/18 09/11/18 09/11/18 # Bowel Movements 1 1 - Constitutional no acute distress - Routine HEENT Exam Head: Present: normocephalic, atraumatic Eye: Present: conjunctival icterus - Routine Abdominal Exam Present: normoactive bowel sounds, distended, firm. Absent: tenderness - Routine Extremities Exam Present: edema - Routine Skin Exam Present: dry, warm - Routine Neurological Exam Present: alert, oriented X3 - Urinary Catheter Management Indwelling Urethral Catheter Cath placed during this visit: yes Reason for continuing: Acute urinary retention Insertion date: 06/04/18 Insertion time: 18:15 <Mar Lucero - Last Filed: 06/13/18 13:08> Vital signs: Vital Signs 06/12/18 13:48 06/12/18 14:00 06/12/18 14:15 Temperature Pulse Rate 57 L 56 L 56 L Respiratory Rate 11 L 9 L 11 L Blood Pressure 103/57 L 103/64 107/62 Pulse Oximetry 99 100 100 06/12/18 14:30 06/12/18 14:45 06/12/18 15:00 Temperature Pulse Rate 56 L 57 L 55 L Respiratory Rate 11 L 11 L 11 L Blood Pressure 105/56 L 105/56 L 108/60 Pulse Oximetry 100 100 100 06/12/18 15:18 06/12/18 15:31 06/12/18 15:45 Temperature Pulse Rate 58 L 58 L 62 Respiratory Rate 12 12 10 L Blood Pressure 117/58 L 114/55 L 118/58 L Pulse Oximetry 100 100 100 06/12/18 16:00 06/12/18 17:00 06/12/18 17:01 Temperature 97.8 F Pulse Rate 63 132 H 138 H Respiratory Rate 12 21 18 Blood Pressure 115/60 111/59 L Pulse Oximetry 99 100 87 L 06/12/18 18:00 06/12/18 18:01 06/12/18 19:00 Temperature Pulse Rate 64 64 146 H Respiratory Rate 15 16 14 Blood Pressure 123/59 L Pulse Oximetry 84 L 06/12/18 19:01 06/12/18 20:00 06/12/18 20:01 Temperature 98.6 F Pulse Rate 156 H 63 63 Respiratory Rate 13 11 L 8 L Blood Pressure 95/52 L 104/60 Pulse Oximetry 76 L 90 L 91 L 06/12/18 20:09 06/12/18 20:48 06/12/18 21:00 Temperature Pulse Rate 66 Respiratory Rate 12 14 Blood Pressure 104/58 L Pulse Oximetry 100 100 06/12/18 22:00 06/12/18 22:01 06/12/18 23:00 Temperature Pulse Rate 182 H 144 H 63 Respiratory Rate 13 15 13 Blood Pressure 110/48 L 110/68 Pulse Oximetry 89 L 83 L 95 06/13/18 00:00 06/13/18 00:01 06/13/18 01:00 Temperature 98.6 F Pulse Rate 62 62 61 Respiratory Rate 15 13 13 Blood Pressure 108/57 L 102/61 Pulse Oximetry 100 94 L 97 06/13/18 02:00 06/13/18 03:00 06/13/18 04:00 Temperature 98.6 F Pulse Rate 58 L 58 L 58 L Respiratory Rate 14 9 L 10 L Blood Pressure 101/56 L 102/57 L 104/56 L Pulse Oximetry 100 99 99 06/13/18 06:00 06/13/18 08:00 06/13/18 10:00 Temperature 98.7 F Pulse Rate 58 L 60 60 Respiratory Rate 7 L Blood Pressure 108/59 L Pulse Oximetry 100 06/13/18 12:08 Temperature Pulse Rate Respiratory Rate Blood Pressure Pulse Oximetry 95 Intake & Output 06/12/18 06/13/18 06/13/18 18:59 06:59 18:59 Intake Total 1180.5 / 1180.5 740.5 / 740.5 Output Total 3510 / 3510 Balance -2329.5 / -2329.5 740.5 / 740.5 Weight 95.9 kg Intake: IV 700.5 / 700.5 500.5 / 500.5 SandoSTATIN Inj 500 MCG In NS 500.5 / 500.5 500.5 / 500.5 Inj 500 ML @ 50 MCG/HR 50.05 mls/hr IV.CONT .Q10H SHALINI Rx#: [id number] Flexbumin 25% Inj 100 ML @ 60 200 / 200 mls/hr IV.SIG WITH DIALYSIS PRN Rx#:[id number] Oral 480 / 480 240 / 240 Output: Hemodialysis Amount 3500 / 3500 Urine Amount (Catheter) Indwelling Urethral Catheter Other: Date of Last Bowel Movement 06/12/18 06/12/18 06/12/18 # Bowel Movements 1 1 - Urinary Catheter Management Indwelling Urethral Catheter Cath placed during this visit: no <Jim Shea A - Last Filed: 06/13/18 13:42> Results - Labs CBC & Chem 7: 06/13/18 03:42 06/13/18 03:42 Laboratory Results - last 24 hr 06/13/18 06/13/18 06/13/18 03:42 03:42 03:42 WBC 5.7 RBC 3.31 L Hgb 9.4 L Hct 28.5 L MCV 86.0 MCH 28.3 MCHC 32.9 RDW 18.8 H Plt Count 84 L MPV 7.2 Prelim Diff (Auto) Slide review pending Neut % (Auto) 57.0 Lymph % (Auto) 15.8 Wilkinson % (Auto) 12.2 H Eos % (Auto) 13.7 H Baso % (Auto) 1.3 Neut # (Auto) 3.2 Lymph # (Auto) 0.9 L Wilkinson # (Auto) 0.7 Eos # (Auto) 0.8 H Baso # (Auto) 0.1 WBC Differential . Diff Scan Auto diff confirmed Differential Comment . Platelet Estimate Low L Platelet Morphology Normal Ovalocytes 1+ H Acanthocytes (Spur) 1+ H Keratocytes Occ H PT 19.0 H INR 1.9 Sodium Potassium Chloride Carbon Dioxide Anion Gap BUN Creatinine Estimated GFR Random Glucose Calcium Phosphorus Magnesium Total Bilirubin AST ALT Alkaline Phosphatase Ammonia 41 H Total Protein Albumin 06/13/18 03:42 WBC RBC Hgb Hct MCV MCH MCHC RDW Plt Count MPV Prelim Diff (Auto) Neut % (Auto) Lymph % (Auto) Wilkinson % (Auto) Eos % (Auto) Baso % (Auto) Neut # (Auto) Lymph # (Auto) Wilkinson # (Auto) Eos # (Auto) Baso # (Auto) WBC Differential Diff Scan Differential Comment Platelet Estimate Platelet Morphology Ovalocytes Acanthocytes (Spur) Keratocytes PT INR Sodium 140 Potassium 3.2 L Chloride 102 Carbon Dioxide 27.7 Anion Gap 10 BUN 18 Creatinine 3.45 H Estimated GFR 18 L Random Glucose 97 Calcium 8.5 Phosphorus 2.5 Magnesium 2.0 Total Bilirubin 1.9 H AST 14 L ALT 15 Alkaline Phosphatase 39 L Ammonia Total Protein 7.2 Albumin 5.2 H - Procedures EXAM DATE: 06/06/2018 4:32 PM EDT AGE/SEX: 58 years / Male INDICATIONS: Patient with history of chronic kidney disease in need of non tunneled dialysis catheter CLINICAL DATA: This is the patient's initial encounter. Patient reports that signs and symptoms have been present for 1 week and indicates a pain score of 8/ 10. MEDICAL/SURGICAL HISTORY: Hepatitis C. Liver cirrhosis, CKD, CAD, A-Fib, HLD, HTN, COPD, NH, CHF, Raynauds syndrome Cholecystectomy. Aortic valve replacement, Knee surgery, CABG, Lung surgery, Back surgery COMPARISON: No prior exams available for comparison. FLUORO TIME (min): 0.1 IMAGE SERIES: 1 ACCESS SITE: Right internal jugular vein DEVICE(S): 14 Persian double lumen X20CM Schon catheter . . PROCEDURE : 1. Ultrasound guided venipuncture. 2. Fluoroscopic guidance. 3. Central line placement. The risks, benefits and alternatives to the procedure were explained and verbal and written consent was obtained. The site was prepped in sterile fashion. Full sterile technique was used, including cap, mask, sterile gloves and gown and a large sterile sheet. Hand hygiene and 2% chlorhexidine prep was utilized per protocol for cutaneous antisepsis with appropriate dry time for site. Sterile gel and sterile probe cover were utilized for ultrasound guidance. The skin and subcutaneous tissues were infiltrated with local anesthetic solution. A suitable site above the vein was selected with ultrasound and fluoroscopic guidance. A small incision was made. The vein was accessed under direct ultrasound visualization using the micropuncture technique. The micropuncture set was exchanged for a 0.035 wire. The tract was dilated. The catheter was advanced into position under direct fluoroscopic visualization, and was advanced with the tip at the junction of the superior vena cava and rt atrium. The catheter was fixed in place with suture and a sterile dressing was applied. The patient tolerated the procedure well and there were no complications. CONCLUSION: 1. Uncomplicated line placement as above. Electronically signed by: Joe Garcia MD 06/07/2018 9:37 AM EDT Undergoing hemodialysis so far on and 96 AND 98 <Mar Lucero - Last Filed: 06/13/18 13:08> - Labs CBC & Chem 7: 06/13/18 03:42 06/13/18 03:42 Laboratory Results - last 24 hr 06/13/18 06/13/18 06/13/18 03:42 03:42 03:42 WBC 5.7 RBC 3.31 L Hgb 9.4 L Hct 28.5 L MCV 86.0 MCH 28.3 MCHC 32.9 RDW 18.8 H Plt Count 84 L MPV 7.2 Prelim Diff (Auto) Slide review pending Neut % (Auto) 57.0 Lymph % (Auto) 15.8 Wilkinson % (Auto) 12.2 H Eos % (Auto) 13.7 H Baso % (Auto) 1.3 Neut # (Auto) 3.2 Lymph # (Auto) 0.9 L Wilkinson # (Auto) 0.7 Eos # (Auto) 0.8 H Baso # (Auto) 0.1 WBC Differential . Diff Scan Auto diff confirmed Differential Comment . Platelet Estimate Low L Platelet Morphology Normal Ovalocytes 1+ H Acanthocytes (Spur) 1+ H Keratocytes Occ H PT 19.0 H INR 1.9 Sodium Potassium Chloride Carbon Dioxide Anion Gap BUN Creatinine Estimated GFR Random Glucose Calcium Phosphorus Magnesium Total Bilirubin AST ALT Alkaline Phosphatase Ammonia 41 H Total Protein Albumin 06/13/18 03:42 WBC RBC Hgb Hct MCV MCH MCHC RDW Plt Count MPV Prelim Diff (Auto) Neut % (Auto) Lymph % (Auto) Wilkinson % (Auto) Eos % (Auto) Baso % (Auto) Neut # (Auto) Lymph # (Auto) Wilkinson # (Auto) Eos # (Auto) Baso # (Auto) WBC Differential Diff Scan Differential Comment Platelet Estimate Platelet Morphology Ovalocytes Acanthocytes (Spur) Keratocytes PT INR Sodium 140 Potassium 3.2 L Chloride 102 Carbon Dioxide 27.7 Anion Gap 10 BUN 18 Creatinine 3.45 H Estimated GFR 18 L Random Glucose 97 Calcium 8.5 Phosphorus 2.5 Magnesium 2.0 Total Bilirubin 1.9 H AST 14 L ALT 15 Alkaline Phosphatase 39 L Ammonia Total Protein 7.2 Albumin 5.2 H <Jim Shea - Last Filed: 06/13/18 13:42> Assessment and Plan (1) End stage liver disease Status: Acute Code(s): K72.90 - Hepatic failure, unspecified without coma (2) Hepatitis C antibody positive in blood Status: Acute Code(s): R76.8 - Other specified abnormal immunological findings in serum (3) Cirrhosis of liver with ascites Status: Acute Code(s): K74.60 - Unspecified cirrhosis of liver; R18.8 - Other ascites - Plan Assessment: - Cirrhosis secondary to Hepatitis C, currently receiving treatment with Harvoni for approximately 4 weeks, recent lab work revealed viral load undetectable. Diagnosed with cirrhosis approximately 6 months ago according to patient. States no ETOH in "long time". Pt follows up with [place] and is on transplant list through them. Thrombocytopenia and coagulopathy likely secondary to above. - Ascites Abdominal US (05/30) Perihepatic ascites, insufficient at present to warrant paracentesis. Pt denies previous paracentesis. On Torsemide - Anemia- no indication of current GIB - VITO on CKD- sent for elevated Potassium and Creatinine. Suspected hepatorenal syndrome. Hemodialysis began on 06/09. Midodrine, Octreotide, albumin infusion. (06/13) H/H remains stable, no indication of active GIB, no indication for EGD at this time. Ascites, not enough to drain, continue Torsemide. Pt complaining of diarrhea and lower abdominal cramps with Lactulose, ammonia, WNL, decrease Lactulose to BID and continue Xifaxan Plan Torsemide Lactulose Xifaxan Avoid hepatotoxins Nephrology following At this time, no need for GI intervention Continue current management Continue Harvoni Pt should follow up with [facility] after DC Patient has been seen and examined by myself and Dr. Shea and this note is written on his behalf <Mar Lucero - Last Filed: 06/13/18 13:08> (1) End stage liver disease Status: Acute Code(s): K72.90 - Hepatic failure, unspecified without coma (2) Hepatitis C antibody positive in blood Status: Acute Code(s): R76.8 - Other specified abnormal immunological findings in serum (3) Cirrhosis of liver with ascites Status: Acute Code(s): K74.60 - Unspecified cirrhosis of liver; R18.8 - Other ascites - Attending Attestation Seen and examined, plan as above. Decrease dose of lactulose. Will sign off for now, please notify us if needed. <Jim Shea - Last Filed: 06/13/18 13:42>
--- NOTE | 2018-06-13 14:53 | P.PNNP ---
Subjective Interval history: Patient complains of weakness Physical Exam Vital signs: Vital Signs 06/12/18 15:00 06/12/18 15:18 06/12/18 15:31 Temperature Pulse Rate 55 L 58 L 58 L Respiratory Rate 11 L 12 12 Blood Pressure 108/60 117/58 L 114/55 L Pulse Oximetry 100 100 100 06/12/18 15:45 06/12/18 16:00 06/12/18 17:00 Temperature 97.8 F Pulse Rate 62 63 132 H Respiratory Rate 10 L 12 21 Blood Pressure 118/58 L 115/60 Pulse Oximetry 100 99 100 06/12/18 17:01 06/12/18 18:00 06/12/18 18:01 Temperature Pulse Rate 138 H 64 64 Respiratory Rate 18 15 16 Blood Pressure 111/59 L 123/59 L Pulse Oximetry 87 L 06/12/18 19:00 06/12/18 19:01 06/12/18 20:00 Temperature 98.6 F Pulse Rate 146 H 156 H 63 Respiratory Rate 14 13 11 L Blood Pressure 95/52 L Pulse Oximetry 84 L 76 L 90 L 06/12/18 20:01 06/12/18 20:09 06/12/18 20:48 Temperature Pulse Rate 63 Respiratory Rate 8 L 12 Blood Pressure 104/60 Pulse Oximetry 91 L 100 06/12/18 21:00 06/12/18 22:00 06/12/18 22:01 Temperature Pulse Rate 66 182 H 144 H Respiratory Rate 14 13 15 Blood Pressure 104/58 L 110/48 L Pulse Oximetry 100 89 L 83 L 06/12/18 23:00 06/13/18 00:00 06/13/18 00:01 Temperature 98.6 F Pulse Rate 63 62 62 Respiratory Rate 13 15 13 Blood Pressure 110/68 108/57 L Pulse Oximetry 95 100 94 L 06/13/18 01:00 06/13/18 02:00 06/13/18 03:00 Temperature Pulse Rate 61 58 L 58 L Respiratory Rate 13 14 9 L Blood Pressure 102/61 101/56 L 102/57 L Pulse Oximetry 97 100 99 06/13/18 04:00 06/13/18 06:00 06/13/18 08:00 Temperature 98.6 F 98.7 F Pulse Rate 58 L 58 L 60 Respiratory Rate 10 L 7 L Blood Pressure 104/56 L 108/59 L Pulse Oximetry 99 100 06/13/18 10:00 06/13/18 12:00 06/13/18 12:08 Temperature 97.8 F Pulse Rate 60 60 Respiratory Rate 20 Blood Pressure 108/58 L Pulse Oximetry 98 95 06/13/18 14:00 Temperature Pulse Rate 65 Respiratory Rate Blood Pressure Pulse Oximetry Intake & Output 06/12/18 06/13/18 06/13/18 18:59 06:59 18:59 Intake Total 1180.5 / 1180.5 740.5 / 740.5 Output Total 3510 / 3510 Balance -2329.5 / -2329.5 740.5 / 740.5 Weight 95.9 kg Intake: IV 700.5 / 700.5 500.5 / 500.5 SandoSTATIN Inj 500 MCG In NS 500.5 / 500.5 500.5 / 500.5 Inj 500 ML @ 50 MCG/HR 50.05 mls/hr IV.CONT .Q10H SHALINI Rx#: [id number] Flexbumin 25% Inj 100 ML @ 60 200 / 200 mls/hr IV.SIG WITH DIALYSIS PRN Rx#:[id number] Oral 480 / 480 240 / 240 Output: Hemodialysis Amount 3500 / 3500 Urine Amount (Catheter) Indwelling Urethral Catheter Other: Date of Last Bowel Movement 06/12/18 06/12/18 06/12/18 # Bowel Movements 1 1 Narrative: GENERAL: Alert, Oriented x 3, appears in NAD. SKIN: Warm and dry. Anasarca present EYES: No scleral icterus. No injection or drainage. NECK: Supple, trachea midline. No JVD or lymphadenopathy. CARDIOVASCULAR: Regular rate and rhythm without murmurs, gallops, or rubs. S1- S2 no S3 or S4 RESPIRATORY: Breath sounds equal bilaterally. No accessory muscle use. GASTROINTESTINAL: Abdomen distended, nontender to palpation good bowel sounds throughout soft nontender MUSCULOSKELETAL: No cyanosis. LESS edema in upper and lower ext. +1 in upper extremity and lower extremity bilaterally BACK: Nontender without obvious deformity. No CVA tenderness. Insight and judgment is limited. Mood and behavior is somewhat appropriate. - Urinary Catheter Management Indwelling Urethral Catheter Cath placed during this visit: yes Reason for continuing: Acute urinary retention Insertion date: 06/04/18 Insertion time: 18:15 Assessment and Plan - Assessment (1) Acute renal failure superimposed on stage 3 chronic kidney disease Code(s): N17.9 - Acute kidney failure, unspecified; N18.3 - Chronic kidney disease, stage 3 (moderate) Status: Acute (2) Hyponatremia Code(s): E87.1 - Hypo-osmolality and hyponatremia Status: Acute (3) Cirrhosis Code(s): K74.60 - Unspecified cirrhosis of liver Status: Acute - Plan Worsening azotemia: Creatinine was elevated and ended up on hemodialysis Urine sodium low hepatorenal syndrome patient with HCV cirrhosis and on transplant list at [place] He remains on nasal cannula Hemodialysis again tomorrow Potassium replacement ordered Patient seen by GI they are aware that he is on transplant list I did not receive any calls from his doctor from [place] Continue to do dialysis He will need permacath placement Follow up with GI for long-term care Poor prognosis
--- NOTE | 2018-06-13 15:10 | P.PNPL ---
Subjective Interval history: 58 YOWM with Cirrhosis of liver, renal failure Less tired Up in chair, on NC breathing better Did't use CPAP Physical Exam Vital signs: Vital Signs 06/12/18 15:18 06/12/18 15:31 06/12/18 15:45 Temperature Pulse Rate 58 L 58 L 62 Respiratory Rate 12 12 10 L Blood Pressure 117/58 L 114/55 L 118/58 L Pulse Oximetry 100 100 100 06/12/18 16:00 06/12/18 17:00 06/12/18 17:01 Temperature 97.8 F Pulse Rate 63 132 H 138 H Respiratory Rate 12 21 18 Blood Pressure 115/60 111/59 L Pulse Oximetry 99 100 87 L 06/12/18 18:00 06/12/18 18:01 06/12/18 19:00 Temperature Pulse Rate 64 64 146 H Respiratory Rate 15 16 14 Blood Pressure 123/59 L Pulse Oximetry 84 L 06/12/18 19:01 06/12/18 20:00 06/12/18 20:01 Temperature 98.6 F Pulse Rate 156 H 63 63 Respiratory Rate 13 11 L 8 L Blood Pressure 95/52 L 104/60 Pulse Oximetry 76 L 90 L 91 L 06/12/18 20:09 06/12/18 20:48 06/12/18 21:00 Temperature Pulse Rate 66 Respiratory Rate 12 14 Blood Pressure 104/58 L Pulse Oximetry 100 100 06/12/18 22:00 06/12/18 22:01 06/12/18 23:00 Temperature Pulse Rate 182 H 144 H 63 Respiratory Rate 13 15 13 Blood Pressure 110/48 L 110/68 Pulse Oximetry 89 L 83 L 95 06/13/18 00:00 06/13/18 00:01 06/13/18 01:00 Temperature 98.6 F Pulse Rate 62 62 61 Respiratory Rate 15 13 13 Blood Pressure 108/57 L 102/61 Pulse Oximetry 100 94 L 97 06/13/18 02:00 06/13/18 03:00 06/13/18 04:00 Temperature 98.6 F Pulse Rate 58 L 58 L 58 L Respiratory Rate 14 9 L 10 L Blood Pressure 101/56 L 102/57 L 104/56 L Pulse Oximetry 100 99 99 06/13/18 06:00 06/13/18 08:00 06/13/18 10:00 Temperature 98.7 F Pulse Rate 58 L 60 60 Respiratory Rate 7 L Blood Pressure 108/59 L Pulse Oximetry 100 06/13/18 12:00 06/13/18 12:08 06/13/18 14:00 Temperature 97.8 F Pulse Rate 60 65 Respiratory Rate 20 Blood Pressure 108/58 L Pulse Oximetry 98 95 Intake & Output 06/12/18 06/13/18 06/13/18 18:59 06:59 18:59 Intake Total 1180.5 / 1180.5 740.5 / 740.5 Output Total 3510 / 3510 Balance -2329.5 / -2329.5 740.5 / 740.5 Weight 95.9 kg Intake: IV 700.5 / 700.5 500.5 / 500.5 SandoSTATIN Inj 500 MCG In NS 500.5 / 500.5 500.5 / 500.5 Inj 500 ML @ 50 MCG/HR 50.05 mls/hr IV.CONT .Q10H SHALINI Rx#: [id number] Flexbumin 25% Inj 100 ML @ 60 200 / 200 mls/hr IV.SIG WITH DIALYSIS PRN Rx#:[id number] Oral 480 / 480 240 / 240 Output: Hemodialysis Amount 3500 / 3500 Urine Amount (Catheter) Indwelling Urethral Catheter Other: Date of Last Bowel Movement 06/12/18 06/12/18 06/12/18 # Bowel Movements 1 1 GENERAL: Elderly Wm, NAD SKIN: Warm and dry. HEAD: Normocephalic. EYES: No scleral icterus. No injection or drainage. NECK: Supple, trachea midline. No JVD or lymphadenopathy. CARDIOVASCULAR: Regular rate and rhythm without murmurs, gallops, or rubs. RESPIRATORY: Breath sounds equal bilaterally. No accessory muscle use. GASTROINTESTINAL: Abdomen soft, non-tender, nondistended. MUSCULOSKELETAL: No cyanosis, + edema. BACK: Nontender without obvious deformity. No CVA tenderness. - Urinary Catheter Management Indwelling Urethral Catheter Cath placed during this visit: yes Reason for continuing: Acute urinary retention Insertion date: 06/04/18 Insertion time: 18:15 Assessment and Plan - Plan IMPRESSION: 1. Shortness of breath with respiratory acidosis, significantly improved now. 2. Fluid overload. 3. Renal failure. 4. Cirrhosis of the liver. 5. Hepatitis C. 6. Aortic valve replacement. 7. Coronary disease, status post coronary artery bypass graft. PLAN: CPAP at night and PRN Supplement 02 SQ Heparin HD per renal Monitor lytes Stable from Pulm standpoint covering for me
[2018-06-14] MEDS: rifAXIMin 550 MG Tablet PO SCH ×3 (01:04→23:01)
[2018-06-14] MEDS: Octreotide Inj 500 MCG in Sodium Chlor 0.9% Inj 500 ML IV.CONT SCH ×3 (01:05→19:26)
--- NOTE | 2018-06-14 08:46 | P.PN ---
Subjective Interval history: In nad No fever or chills Had HD No n/v/d/c Physical Exam Vital signs: Vital Signs 06/13/18 10:00 06/13/18 12:00 06/13/18 12:08 Temperature 97.8 F Pulse Rate 60 60 Respiratory Rate 20 Blood Pressure 108/58 L Pulse Oximetry 98 95 06/13/18 14:00 06/13/18 16:00 06/13/18 18:00 Temperature 97.9 F Pulse Rate 65 63 59 L Respiratory Rate 13 Blood Pressure 105/67 Pulse Oximetry 98 06/13/18 19:17 06/13/18 20:00 06/13/18 22:51 Temperature 98.9 F Pulse Rate 66 Respiratory Rate 13 Blood Pressure 109/68 Pulse Oximetry 100 100 92 L 06/14/18 00:00 06/14/18 04:00 Temperature 98.1 F 98.6 F Pulse Rate 72 74 Respiratory Rate 19 18 Blood Pressure 104/64 117/56 L Pulse Oximetry 92 L 94 L Intake & Output 06/13/18 06/14/18 06/14/18 18:59 06:59 18:59 Intake Total 480 / 480 740.5 / 740.5 Output Total 75 / 75 Balance 465 / 465 665.5 / 665.5 Weight 89 kg Intake: IV 500.5 / 500.5 SandoSTATIN Inj 500 MCG In NS 500.5 / 500.5 Inj 500 ML @ 50 MCG/HR 50.05 mls/hr IV.CONT .Q10H [facility] Rx#: [id number] Oral 480 / 480 240 / 240 Output: Urine 75 / 75 Urine Amount (Catheter) Indwelling Urethral Catheter Other: Date of Last Bowel Movement 06/13/18 06/13/18 # Bowel Movements 1 2 Narrative: GENERAL: Alert, Oriented x 3, appears in NAD. SKIN: Warm and dry. Anasarca present EYES: No scleral icterus. No injection or drainage. NECK: Supple, trachea midline. No JVD or lymphadenopathy. CARDIOVASCULAR: Regular rate and rhythm without murmurs, gallops, or rubs. S1- S2 no S3 or S4 RESPIRATORY: Breath sounds equal bilaterally. No accessory muscle use. GASTROINTESTINAL: Abdomen distended, nontender to palpation good bowel sounds throughout soft nontender MUSCULOSKELETAL: No cyanosis. LESS edema in upper and lower ext. +1 in upper extremity and lower extremity bilaterally BACK: Nontender without obvious deformity. No CVA tenderness. Insight and judgment is limited. Mood and behavior is somewhat appropriate. - Urinary Catheter Management Indwelling Urethral Catheter Cath placed during this visit: yes Reason for continuing: Acute urinary retention Insertion date: 06/04/18 Insertion time: 18:15 Results - Labs CBC & Chem 7: 06/13/18 03:42 06/13/18 03:42 Laboratory Results - last 24 hr 06/14/18 05:41 Ammonia 23 - Procedures EXAM DATE: 06/06/2018 4:32 PM EDT AGE/SEX: 58 years / Male INDICATIONS: Patient with history of chronic kidney disease in need of non tunneled dialysis catheter CLINICAL DATA: This is the patient's initial encounter. Patient reports that signs and symptoms have been present for 1 week and indicates a pain score of 8/ 10. MEDICAL/SURGICAL HISTORY: Hepatitis C. Liver cirrhosis, CKD, CAD, A-Fib, HLD, HTN, COPD, [place], CHF, Raynauds syndrome Cholecystectomy. Aortic valve replacement, Knee surgery, CABG, Lung surgery, Back surgery COMPARISON: No prior exams available for comparison. FLUORO TIME (min): 0.1 IMAGE SERIES: 1 ACCESS SITE: Right internal jugular vein DEVICE(S): 14 Japanese double lumen X20CM Schon catheter . . PROCEDURE : 1. Ultrasound guided venipuncture. 2. Fluoroscopic guidance. 3. Central line placement. The risks, benefits and alternatives to the procedure were explained and verbal and written consent was obtained. The site was prepped in sterile fashion. Full sterile technique was used, including cap, mask, sterile gloves and gown and a large sterile sheet. Hand hygiene and 2% chlorhexidine prep was utilized per protocol for cutaneous antisepsis with appropriate dry time for site. Sterile gel and sterile probe cover were utilized for ultrasound guidance. The skin and subcutaneous tissues were infiltrated with local anesthetic solution. A suitable site above the vein was selected with ultrasound and fluoroscopic guidance. A small incision was made. The vein was accessed under direct ultrasound visualization using the micropuncture technique. The micropuncture set was exchanged for a 0.035 wire. The tract was dilated. The catheter was advanced into position under direct fluoroscopic visualization, and was advanced with the tip at the junction of the superior vena cava and rt atrium. The catheter was fixed in place with suture and a sterile dressing was applied. The patient tolerated the procedure well and there were no complications. CONCLUSION: 1. Uncomplicated line placement as above. Electronically signed by: Joe Garcia MD 06/07/2018 9:37 AM EDT Undergoing hemodialysis so far on and 96 AND 06-09 Assessment and Plan - Plan Mr. Boogie is a pleasant 58-year-old male with a history of hepatitis C on Harvoni, CKD who was admitted to the hospital after he had a blood work at the [facility] which shows hypokalemia and worsening creatinine. Acute on chronic kidney disease Hyperkalemia Hyponatremia -Creatinine 2.5 --> 1.80 --> 1.90 ==> 2.2 ==> 2.9 ==> 3.7 NOW IS 4.26-- NOW 3.9 His baseline creatinine is about 1.4-1.6. -Is being given Lasix 80 mg IV twice daily as well as Zaroxolyn and ProAmatine -Potassium has improved. -Discussed with Nephrology on 06/03/2018. . -transfer patient to the main hospital. -Continue Midodrine, albumin and Octreotide. -May need at least transient dialysis. REMAINS CONFUSED CHECK AMMONIA NOW AND TOMORROW Acute renal failure status post chemo dialysis catheter placed on Status post hemodialysis on 06-06 and repeat hemodialysis on Hypokalemia replace with potassium bath during hemodialysis WATCH ELECTROLYTES Paroxysmal Atrial fibrillation -Patient takes Atenolol at home. Continue Metoprolol 25mg BID. -[id number] score 0. Although Aspirin would be beneficial, given his liver cirrhosis, it maybe risky to start Aspirin. -Patient will discuss with his four slide machine setter after hospitalization. Liver cirrhosis Hepatitis C COAGULOPATHY -Patient is currently on Harvoni. Abdominal ultrasound did not reveal enough ascites to drain. -Patient follows up with [facility] with regards to liver transplant. - Morphine for abdominal pain. -Ammonia level is increased will make sure he is on lactulose may have to add rifaximin and increase lactulose to 3 times daily-ammonia level is still increased will monitor Full code. INR is 1.7 due to liver disease. Will start patient on Heparin 5000 unit SQ Q12hrs for DVT prophylaxis. PT AND OT TO EVAL AND TREAT consult pulmonary OXYGEN NEEDED BIPAP AT NIGHT AND FOR NAPS HD PER NEPHROLOGY [facility] Code Status: FULL CODE Discussed Condition With: PATIENT AND RN AND GI Discharge Planning: Plan to DC home with home health Cleared b podiatry for DC Wound vac was removed /Dressings per podiatry change To follow up as OP with PCP and consultants
[2018-06-14] MEDS: Heparin - SQ 10,000 UNITS/ML Vial SQ SCH ×2 (08:54→21:20)
[2018-06-14] MEDS: Nystatin 100,000 UNITS/GM Powder 15 GM Bottle TOPICAL SCH ×4 (08:55→21:48)
[2018-06-14] MEDS: Torsemide 20 MG Tablet PO SCH ×2 (08:55→21:22)
[2018-06-14] MEDS: Heparin Central Flush 100 UNIT/ML 5 ML Vial IV.FLUSH SCH (09:00)
[2018-06-14] MEDS: Metoprolol Tartrate 50 MG Tablet PO SCH ×2 (09:09→22:48)
[2018-06-14] MEDS: HARVONI PO SCH (09:10)
--- NOTE | 2018-06-14 15:08 | P.PNNP ---
Subjective Interval history: Patient seen during dialysis Physical Exam Vital signs: Vital Signs 06/13/18 16:00 06/13/18 18:00 06/13/18 19:17 Temperature 97.9 F Pulse Rate 63 59 L Respiratory Rate 13 Blood Pressure 105/67 Pulse Oximetry 98 100 06/13/18 20:00 06/13/18 22:51 06/14/18 00:00 Temperature 98.9 F 98.1 F Pulse Rate 66 72 Respiratory Rate 13 19 Blood Pressure 109/68 104/64 Pulse Oximetry 100 92 L 92 L 06/14/18 04:00 06/14/18 08:00 Temperature 98.6 F 98.5 F Pulse Rate 74 68 Respiratory Rate 18 18 Blood Pressure 117/56 L 104/56 L Pulse Oximetry 94 L 98 Intake & Output 06/13/18 06/14/18 06/14/18 18:59 06:59 18:59 Intake Total 480 / 480 740.5 / 740.5 500.5 / 500.5 Output Total 75 / 75 1500 / 1500 Balance 465 / 465 665.5 / 665.5 -999.5 / -999.5 Weight 89 kg Intake: IV 500.5 / 500.5 500.5 / 500.5 SandoSTATIN Inj 500 MCG In NS 500.5 / 500.5 500.5 / 500.5 Inj 500 ML @ 50 MCG/HR 50.05 mls/hr IV.CONT .Q10H [facility] Rx#: [id number] Oral 480 / 480 240 / 240 Output: Urine 75 / 75 Hemodialysis Amount 1500 / 1500 Urine Amount (Catheter) Indwelling Urethral Catheter Other: Date of Last Bowel Movement 06/13/18 06/13/18 # Bowel Movements 1 2 Narrative: GENERAL: Alert, Oriented x 3, appears in NAD. SKIN: Warm and dry. Anasarca present EYES: No scleral icterus. No injection or drainage. NECK: Supple, trachea midline. No JVD or lymphadenopathy. CARDIOVASCULAR: Regular rate and rhythm without murmurs, gallops, or rubs. S1- S2 no S3 or S4 RESPIRATORY: Breath sounds equal bilaterally. No accessory muscle use. GASTROINTESTINAL: Abdomen distended, nontender to palpation good bowel sounds throughout soft nontender MUSCULOSKELETAL: No cyanosis. LESS edema in upper and lower ext. +1 in upper extremity and lower extremity bilaterally BACK: Nontender without obvious deformity. No CVA tenderness. Insight and judgment is limited. Mood and behavior is somewhat appropriate. - Urinary Catheter Management Indwelling Urethral Catheter Cath placed during this visit: yes Reason for continuing: Acute urinary retention Insertion date: 06/04/18 Insertion time: 18:15 Assessment and Plan - Assessment (1) Acute renal failure superimposed on stage 3 chronic kidney disease Code(s): N17.9 - Acute kidney failure, unspecified; N18.3 - Chronic kidney disease, stage 3 (moderate) Status: Acute (2) Hyponatremia Code(s): E87.1 - Hypo-osmolality and hyponatremia Status: Acute (3) Cirrhosis Code(s): K74.60 - Unspecified cirrhosis of liver Status: Acute - Plan Worsening azotemia: Creatinine was elevated and ended up on hemodialysis Urine sodium low hepatorenal syndrome patient with HCV cirrhosis and on transplant list at [facility] He remains on nasal cannula Hemodialysis seen during hemodialysis and tolerating it however blood pressure did drop ultrafiltration up to 2 L
--- NOTE | 2018-06-14 16:59 | P.PN ---
Subjective Interval history: ALERT UP IN CHAIR NAD Physical Exam Vital signs: Vital Signs 06/13/18 18:00 06/13/18 19:17 06/13/18 20:00 Temperature 98.9 F Pulse Rate 59 L 66 Respiratory Rate 13 Blood Pressure 109/68 Pulse Oximetry 100 100 06/13/18 22:51 06/14/18 00:00 06/14/18 04:00 Temperature 98.1 F 98.6 F Pulse Rate 72 74 Respiratory Rate 19 18 Blood Pressure 104/64 117/56 L Pulse Oximetry 92 L 92 L 94 L 06/14/18 08:00 Temperature 98.5 F Pulse Rate 68 Respiratory Rate 18 Blood Pressure 104/56 L Pulse Oximetry 98 Intake & Output 06/13/18 06/14/18 06/14/18 18:59 06:59 18:59 Intake Total 480 / 480 740.5 / 740.5 500.5 / 500.5 Output Total 75 / 75 1500 / 1500 Balance 465 / 465 665.5 / 665.5 -999.5 / -999.5 Weight 89 kg Intake: IV 500.5 / 500.5 500.5 / 500.5 SandoSTATIN Inj 500 MCG In NS 500.5 / 500.5 500.5 / 500.5 Inj 500 ML @ 50 MCG/HR 50.05 mls/hr IV.CONT .Q10H [facility] Rx#: [id number] Oral 480 / 480 240 / 240 Output: Urine 75 / 75 Hemodialysis Amount 1500 / 1500 Urine Amount (Catheter) Indwelling Urethral Catheter Other: Date of Last Bowel Movement 06/13/18 06/13/18 # Bowel Movements 1 2 Narrative: GENERAL: Alert, Oriented x 3, appears in NAD. SKIN: Warm and dry. Anasarca present EYES: No scleral icterus. No injection or drainage. NECK: Supple, trachea midline. No JVD or lymphadenopathy. CARDIOVASCULAR: Regular rate and rhythm without murmurs, gallops, or rubs. S1- S2 no S3 or S4 RESPIRATORY: Breath sounds equal bilaterally. No accessory muscle use. GASTROINTESTINAL: Abdomen distended, nontender to palpation good bowel sounds throughout soft nontender MUSCULOSKELETAL: No cyanosis. LESS edema in upper and lower ext. +1 in upper extremity and lower extremity bilaterally BACK: Nontender without obvious deformity. No CVA tenderness. Insight and judgment is limited. Mood and behavior is somewhat appropriate. - Urinary Catheter Management Indwelling Urethral Catheter Cath placed during this visit: yes Reason for continuing: Acute urinary retention Insertion date: 06/04/18 Insertion time: 18:15 Results - Labs CBC & Chem 7: 06/13/18 03:42 06/13/18 03:42 Laboratory Results - last 24 hr 06/14/18 05:41 Ammonia 23 - Procedures EXAM DATE: 06/06/2018 4:32 PM EDT AGE/SEX: 58 years / Male INDICATIONS: Patient with history of chronic kidney disease in need of non tunneled dialysis catheter CLINICAL DATA: This is the patient's initial encounter. Patient reports that signs and symptoms have been present for 1 week and indicates a pain score of 8/ 10. MEDICAL/SURGICAL HISTORY: Hepatitis C. Liver cirrhosis, CKD, CAD, A-Fib, HLD, HTN, COPD, [place], CHF, Raynauds syndrome Cholecystectomy. Aortic valve replacement, Knee surgery, CABG, Lung surgery, Back surgery COMPARISON: No prior exams available for comparison. FLUORO TIME (min): 0.1 IMAGE SERIES: 1 ACCESS SITE: Right internal jugular vein DEVICE(S): 14 Ecuadorean double lumen X20CM Schon catheter . . PROCEDURE : 1. Ultrasound guided venipuncture. 2. Fluoroscopic guidance. 3. Central line placement. The risks, benefits and alternatives to the procedure were explained and verbal and written consent was obtained. The site was prepped in sterile fashion. Full sterile technique was used, including cap, mask, sterile gloves and gown and a large sterile sheet. Hand hygiene and 2% chlorhexidine prep was utilized per protocol for cutaneous antisepsis with appropriate dry time for site. Sterile gel and sterile probe cover were utilized for ultrasound guidance. The skin and subcutaneous tissues were infiltrated with local anesthetic solution. A suitable site above the vein was selected with ultrasound and fluoroscopic guidance. A small incision was made. The vein was accessed under direct ultrasound visualization using the micropuncture technique. The micropuncture set was exchanged for a 0.035 wire. The tract was dilated. The catheter was advanced into position under direct fluoroscopic visualization, and was advanced with the tip at the junction of the superior vena cava and rt atrium. The catheter was fixed in place with suture and a sterile dressing was applied. The patient tolerated the procedure well and there were no complications. CONCLUSION: 1. Uncomplicated line placement as above. Electronically signed by: Joe Garcia MD 06/07/2018 9:37 AM EDT Undergoing hemodialysis so far on 95 and 96 AND 8 Assessment and Plan - Plan RESPIRARY FAILYRE RENAL FAILURE CRISTIANE PLAN O2 NEEDED PAP THERAPY PULM TOILET INCREASE ACTIVITY
[2018-06-14] MEDS ORDERED: Albumin Human 25% Inj 100 ML IV.SIG ONE (21:00)
[2018-06-15] MEDS: Octreotide Inj 500 MCG in Sodium Chlor 0.9% Inj 500 ML IV.CONT SCH ×2 (04:20→17:27)
[2018-06-15] MEDS: Heparin Central Flush 100 UNIT/ML 5 ML Vial IV.FLUSH SCH (08:20)
[2018-06-15] MEDS: Torsemide 20 MG Tablet PO SCH ×2 (08:20→20:09)
[2018-06-15] MEDS: Heparin - SQ 10,000 UNITS/ML Vial SQ SCH ×2 (08:20→20:09)
[2018-06-15] MEDS: Nystatin 100,000 UNITS/GM Powder 15 GM Bottle TOPICAL SCH ×3 (08:20→20:10)
[2018-06-15] MEDS: Metoprolol Tartrate 50 MG Tablet PO SCH ×2 (08:20→20:10)
[2018-06-15] MEDS: HARVONI PO SCH (08:21)
--- NOTE | 2018-06-15 08:44 | P.PN ---
Subjective Interval history: In bed, no sob, however still requiring O2 by [facility]. Doesn't have O2 at home. Pulled by accident central line last night No fever or chills. No n/v/d/c. Eatign fairly well. Ambulating with a walker in the room. Feels tired but improved some. Family - at bedside. Physical Exam Vital signs: Vital Signs 06/14/18 18:00 06/14/18 20:00 06/15/18 00:00 Temperature 98.7 F 98.6 F Pulse Rate 61 63 Respiratory Rate 18 18 Blood Pressure 91/52 L 97/58 L Pulse Oximetry 94 L 99 100 06/15/18 04:00 Temperature 97.4 F L Pulse Rate 57 L Respiratory Rate 18 Blood Pressure 98/51 L Pulse Oximetry 100 Intake & Output 06/14/18 06/15/18 06/15/18 18:59 06:59 18:59 Intake Total 1481.0 / 1481.0 600.5 / 600.5 Output Total 1900 / 1900 Balance -419.0 / -419.0 575.5 / 575.5 Weight 90 kg Intake: IV 1001.0 / 1001.0 600.5 / 600.5 SandoSTATIN Inj 500 MCG In NS 1001.0 / 1001.0 500.5 / 500.5 Inj 500 ML @ 50 MCG/HR 50.05 mls/hr IV.CONT .Q10H [facility]PL[facility] Rx#: [id number] Flexbumin 25% Inj 100 ML @ 60 100 / 100 mls/hr IV.SIG ONCE ONE Rx#: [id number] Oral 480 / 480 Output: Urine 400 / 400 Hemodialysis Amount 1500 / 1500 Urine Amount (Catheter) Indwelling Urethral Catheter Other: Date of Last Bowel Movement 06/14/18 # Bowel Movements 2 Narrative: GENERAL: Pleasant 58 yo male, with anasarca. Alert, Oriented x 3, appears in NAD. SKIN: Warm and dry. Anasarca EYES: No scleral icterus. No injection or drainage. NECK: Supple, trachea midline. No JVD or lymphadenopathy. CARDIOVASCULAR: Regular rate and rhythm without murmurs, gallops, or rubs. S1- S2 no S3 or S4 RESPIRATORY: Breath sounds equal bilaterally. No accessory muscle use. GASTROINTESTINAL: Abdomen distended, nontender to palpation good bowel sounds throughout soft nontender MUSCULOSKELETAL: No cyanosis. LESS edema in upper and lower ext. +1 in upper extremity and lower extremity bilaterally BACK: Nontender without obvious deformity. No CVA tenderness. Insight and judgment is limited. Mood and behavior is somewhat appropriate. - Urinary Catheter Management Indwelling Urethral Catheter Cath placed during this visit: yes Reason for continuing: Acute urinary retention Insertion date: 06/04/18 Insertion time: 18:15 Results - Labs CBC & Chem 7: 06/13/18 03:42 06/13/18 03:42 - Procedures EXAM DATE: 06/06/2018 4:32 PM EDT AGE/SEX: 58 years / Male INDICATIONS: Patient with history of chronic kidney disease in need of non tunneled dialysis catheter CLINICAL DATA: This is the patient's initial encounter. Patient reports that signs and symptoms have been present for 1 week and indicates a pain score of 8/ 10. MEDICAL/SURGICAL HISTORY: Hepatitis C. Liver cirrhosis, CKD, CAD, A-Fib, HLD, HTN, COPD, [place], CHF, Raynauds syndrome Cholecystectomy. Aortic valve replacement, Knee surgery, CABG, Lung surgery, Back surgery COMPARISON: No prior exams available for comparison. FLUORO TIME (min): 0.1 IMAGE SERIES: 1 ACCESS SITE: Right internal jugular vein DEVICE(S): 14 Azeri double lumen X20CM Schon catheter . . PROCEDURE : 1. Ultrasound guided venipuncture. 2. Fluoroscopic guidance. 3. Central line placement. The risks, benefits and alternatives to the procedure were explained and verbal and written consent was obtained. The site was prepped in sterile fashion. Full sterile technique was used, including cap, mask, sterile gloves and gown and a large sterile sheet. Hand hygiene and 2% chlorhexidine prep was utilized per protocol for cutaneous antisepsis with appropriate dry time for site. Sterile gel and sterile probe cover were utilized for ultrasound guidance. The skin and subcutaneous tissues were infiltrated with local anesthetic solution. A suitable site above the vein was selected with ultrasound and fluoroscopic guidance. A small incision was made. The vein was accessed under direct ultrasound visualization using the micropuncture technique. The micropuncture set was exchanged for a 0.035 wire. The tract was dilated. The catheter was advanced into position under direct fluoroscopic visualization, and was advanced with the tip at the junction of the superior vena cava and rt atrium. The catheter was fixed in place with suture and a sterile dressing was applied. The patient tolerated the procedure well and there were no complications. CONCLUSION: 1. Uncomplicated line placement as above. Electronically signed by: Joe Garcia MD 06/07/2018 9:37 AM EDT Undergoing hemodialysis so far on and AND 06-09 Assessment and Plan - Plan Mr. Boogie is a pleasant 58-year-old male with a history of hepatitis C on Harvoni, CKD who was admitted to the hospital after he had a blood work at the [facility] which shows hypokalemia and worsening creatinine. Acute on chronic kidney disease Hyperkalemia Hyponatremia -Creatinine 2.5 --> 1.80 --> 1.90 ==> 2.2 ==> 2.9 ==> 3.7 NOW IS 4.26-- NOW 3.9 His baseline creatinine is about 1.4-1.6. -Is being given Lasix 80 mg IV twice daily as well as Zaroxolyn and ProAmatine -Potassium has improved. -Discussed with Nephrology on 06/03/2018. . -transfer patient to the main hospital. -Continue Midodrine, albumin and Octreotide. -May need at least transient dialysis. REMAINS CONFUSED CHECK AMMONIA NOW AND TOMORROW Acute renal failure status post chemo dialysis catheter placed on Status post hemodialysis on 06-06 and repeat hemodialysis on Hypokalemia replace with potassium bath during hemodialysis WATCH ELECTROLYTES Paroxysmal Atrial fibrillation -Patient takes Atenolol at home. Continue Metoprolol 25mg BID. -[id number] score 0. Although Aspirin would be beneficial, given his liver cirrhosis, it maybe risky to start Aspirin. -Patient will discuss with his open developer operator after hospitalization. Liver cirrhosis Hepatitis C COAGULOPATHY -Patient is currently on Harvoni. Abdominal ultrasound did not reveal enough ascites to drain. -Patient follows up with [facility] with regards to liver transplant. - Morphine for abdominal pain. -Ammonia level is increased will make sure he is on lactulose may have to add rifaximin and increase lactulose to 3 times daily-ammonia level is still increased will monitor Full code. INR is 1.7 due to liver disease. Will start patient on Heparin 5000 unit SQ Q12hrs for DVT prophylaxis. PT AND OT TO EVAL AND TREAT consult pulmonary OXYGEN NEEDED BIPAP AT NIGHT AND FOR NAPS HD PER NEPHROLOGY Pulled central line by accident 9.13 . Nephrology ff if needs more dialysis might need a new line WILL NEED FOLLOW UP WITH [facility] AFTER DISCHARGE Code Status: FULL CODE Discussed Condition With: PATIENT AND RN AND GI Discharge Planning: Plan to DC home with home health Correction to discharge plan: Patient needs HD so far not cleared by nephrology Anasarca improved with HD Cleared by GI to follow up as OP with GI at [facility] pending improvement and clearance by nephrology
--- NOTE | 2018-06-15 09:59 | P.PN ---
Subjective Interval history: ALERT UP IN CHAIR NAD Physical Exam Vital signs: Vital Signs 06/14/18 18:00 06/14/18 20:00 06/15/18 00:00 Temperature 98.7 F 98.6 F Pulse Rate 61 63 Respiratory Rate 18 18 Blood Pressure 91/52 L 97/58 L Pulse Oximetry 94 L 99 100 06/15/18 04:00 06/15/18 08:00 06/15/18 09:22 Temperature 97.4 F L 97.8 F Pulse Rate 57 L 75 Respiratory Rate 18 18 Blood Pressure 98/51 L 94/55 L Pulse Oximetry 100 97 97 Intake & Output 06/14/18 06/15/18 06/15/18 18:59 06:59 18:59 Intake Total 1481.0 / 1481.0 600.5 / 600.5 Output Total 1900 / 1900 Balance -419.0 / -419.0 575.5 / 575.5 Weight 90 kg Intake: IV 1001.0 / 1001.0 600.5 / 600.5 SandoSTATIN Inj 500 MCG In NS 1001.0 / 1001.0 500.5 / 500.5 Inj 500 ML @ 50 MCG/HR 50.05 mls/hr IV.CONT .Q10H SHALINI Rx#: [id number] Flexbumin 25% Inj 100 ML @ 60 100 / 100 mls/hr IV.SIG ONCE ONE Rx#: [id number] Oral 480 / 480 Output: Urine 400 / 400 Hemodialysis Amount 1500 / 1500 Urine Amount (Catheter) Indwelling Urethral Catheter Other: Date of Last Bowel Movement 06/14/18 # Bowel Movements 2 Narrative: GENERAL: Alert, Oriented x 3, appears in NAD. SKIN: Warm and dry. Anasarca present EYES: No scleral icterus. No injection or drainage. NECK: Supple, trachea midline. No JVD or lymphadenopathy. CARDIOVASCULAR: Regular rate and rhythm without murmurs, gallops, or rubs. S1- S2 no S3 or S4 RESPIRATORY: Breath sounds equal bilaterally. No accessory muscle use. GASTROINTESTINAL: Abdomen distended, nontender to palpation good bowel sounds throughout soft nontender MUSCULOSKELETAL: No cyanosis. LESS edema in upper and lower ext. +1 in upper extremity and lower extremity bilaterally BACK: Nontender without obvious deformity. No CVA tenderness. Insight and judgment is limited. Mood and behavior is somewhat appropriate. - Urinary Catheter Management Indwelling Urethral Catheter Cath placed during this visit: yes Reason for continuing: Acute urinary retention Insertion date: 06/04/18 Insertion time: 18:15 Results - Labs CBC & Chem 7: 06/13/18 03:42 06/13/18 03:42 - Procedures EXAM DATE: 06/06/2018 4:32 PM EDT AGE/SEX: 58 years / Male INDICATIONS: Patient with history of chronic kidney disease in need of non tunneled dialysis catheter CLINICAL DATA: This is the patient's initial encounter. Patient reports that signs and symptoms have been present for 1 week and indicates a pain score of 8/ 10. MEDICAL/SURGICAL HISTORY: Hepatitis C. Liver cirrhosis, CKD, CAD, A-Fib, HLD, HTN, COPD, [place], CHF, Raynauds syndrome Cholecystectomy. Aortic valve replacement, Knee surgery, CABG, Lung surgery, Back surgery COMPARISON: No prior exams available for comparison. FLUORO TIME (min): 0.1 IMAGE SERIES: 1 ACCESS SITE: Right internal jugular vein DEVICE(S): 14 [place] double lumen X20CM Schon catheter . . PROCEDURE : 1. Ultrasound guided venipuncture. 2. Fluoroscopic guidance. 3. Central line placement. The risks, benefits and alternatives to the procedure were explained and verbal and written consent was obtained. The site was prepped in sterile fashion. Full sterile technique was used, including cap, mask, sterile gloves and gown and a large sterile sheet. Hand hygiene and 2% chlorhexidine prep was utilized per protocol for cutaneous antisepsis with appropriate dry time for site. Sterile gel and sterile probe cover were utilized for ultrasound guidance. The skin and subcutaneous tissues were infiltrated with local anesthetic solution. A suitable site above the vein was selected with ultrasound and fluoroscopic guidance. A small incision was made. The vein was accessed under direct ultrasound visualization using the micropuncture technique. The micropuncture set was exchanged for a 0.035 wire. The tract was dilated. The catheter was advanced into position under direct fluoroscopic visualization, and was advanced with the tip at the junction of the superior vena cava and rt atrium. The catheter was fixed in place with suture and a sterile dressing was applied. The patient tolerated the procedure well and there were no complications. CONCLUSION: 1. Uncomplicated line placement as above. Electronically signed by: Joe Garcia MD 06/07/2018 9:37 AM EDT Undergoing hemodialysis so far on 95 and 96 AND 9-8 Assessment and Plan - Plan RESPIRARY FAILYRE RENAL FAILURE CRISTIANE PLAN O2 NEEDED PAP THERAPY PULM TOILET INCREASE ACTIVITY
[2018-06-15] MEDS: rifAXIMin 550 MG Tablet PO SCH ×2 (10:27→22:50)
--- NOTE | 2018-06-15 17:21 | P.PNNP ---
Subjective Interval history: Pulled his Vas-Cath, he is not bleeding Physical Exam Vital signs: Vital Signs 06/14/18 18:00 06/14/18 20:00 06/15/18 00:00 Temperature 98.7 F 98.6 F Pulse Rate 61 63 Respiratory Rate 18 18 Blood Pressure 91/52 L 97/58 L Pulse Oximetry 94 L 99 100 06/15/18 04:00 06/15/18 08:00 06/15/18 09:10 Temperature 97.4 F L 97.8 F Pulse Rate 57 L 75 Respiratory Rate 18 18 Blood Pressure 98/51 L 94/55 L Pulse Oximetry 100 97 92 L 06/15/18 09:22 06/15/18 12:00 06/15/18 16:00 Temperature 98 F 98 F Pulse Rate 56 L 64 Respiratory Rate 18 18 Blood Pressure 96/54 L 101/58 L Pulse Oximetry 97 97 100 Intake & Output 06/14/18 06/15/18 06/15/18 18:59 06:59 18:59 Intake Total 1481.0 / 1481.0 600.5 / 600.5 Output Total 1900 / 1900 Balance -419.0 / -419.0 575.5 / 575.5 Weight 90 kg Intake: IV 1001.0 / 1001.0 600.5 / 600.5 SandoSTATIN Inj 500 MCG In NS 1001.0 / 1001.0 500.5 / 500.5 Inj 500 ML @ 50 MCG/HR 50.05 mls/hr IV.CONT .Q10H SHALINI Rx#: [id number] Flexbumin 25% Inj 100 ML @ 60 100 / 100 mls/hr IV.SIG ONCE ONE Rx#: [id number] Oral 480 / 480 Output: Urine 400 / 400 Hemodialysis Amount 1500 / 1500 Urine Amount (Catheter) Indwelling Urethral Catheter Other: Date of Last Bowel Movement 06/14/18 # Bowel Movements 2 Narrative: GENERAL: Pleasant 58 yo male, with anasarca. Alert, Oriented x 3, appears in NAD. SKIN: Warm and dry. Anasarca EYES: No scleral icterus. No injection or drainage. NECK: Supple, trachea midline. No JVD or lymphadenopathy. CARDIOVASCULAR: Regular rate and rhythm without murmurs, gallops, or rubs. S1- S2 no S3 or S4 RESPIRATORY: Breath sounds equal bilaterally. No accessory muscle use. GASTROINTESTINAL: Abdomen distended, nontender to palpation good bowel sounds throughout soft nontender MUSCULOSKELETAL: No cyanosis. LESS edema in upper and lower ext. +1 in upper extremity and lower extremity bilaterally BACK: Nontender without obvious deformity. No CVA tenderness. Insight and judgment is limited. Mood and behavior is somewhat appropriate. - Urinary Catheter Management Indwelling Urethral Catheter Cath placed during this visit: yes Reason for continuing: Acute urinary retention Insertion date: 06/04/18 Insertion time: 18:15 Assessment and Plan - Assessment (1) Acute renal failure superimposed on stage 3 chronic kidney disease Code(s): N17.9 - Acute kidney failure, unspecified; N18.3 - Chronic kidney disease, stage 3 (moderate) Status: Acute (2) Hyponatremia Code(s): E87.1 - Hypo-osmolality and hyponatremia Status: Acute (3) Cirrhosis Code(s): K74.60 - Unspecified cirrhosis of liver Status: Acute - Plan Worsening azotemia: Creatinine was elevated and ended up on hemodialysis Urine sodium low hepatorenal syndrome patient with HCV cirrhosis and on transplant list at [place] He remains on nasal cannula Hemodialysis next tomorrow Discussed with Dr. Toure Vas-Cath needs to be replaced possibly tonight Appreciate radiology input
[2018-06-15] MEDS ORDERED: *Heparin 10,000 UNITS/10 ML Vial Periprocedural ONLY ONE (19:01)
[2018-06-15] MEDS ORDERED: Heparin Central Flush 100 UNIT/ML 5 ML Vial IV.FLUSH PRN (19:16)
--- NOTE | 2018-06-15 19:20 | P.RAD ---
Post Procedure Progress Note - Pre Procedure Diagnosis (1) Complications, dialysis, catheter, mechanical - Post Procedure Diagnosis (1) Complications, dialysis, catheter, mechanical - Procedure Information Procedure Date: 06/15/18 Supervising Radiologist: Afshin Toure Jr, MD Proceduralist/Assist: Ryan Plasencia Anesthesia: Local - Plan of Activity Patient to Unit: Nursing Unit Patient Condition: Good See PACS Report for procedural detail/treatment. CVAD Radiology Procedures right Internal Jugular Hemodialysis Catheter Non-Tunneled Placement Kazakh: 14 - Additional Detail Findings: Pt inadvertently pulled out his Vascath. Placed new Vascath. Is functioning well and ready for use. Plan: Routine dialysis cath care.
[2018-06-16] MEDS: Octreotide Inj 500 MCG in Sodium Chlor 0.9% Inj 500 ML IV.CONT SCH ×4 (00:24→20:36)
[2018-06-16] MEDS: Heparin Central Flush 100 UNIT/ML 5 ML Vial IV.FLUSH SCH (08:48)
[2018-06-16] MEDS: Heparin - SQ 10,000 UNITS/ML Vial SQ SCH ×2 (08:55→20:35)
[2018-06-16] MEDS: Metoprolol Tartrate 50 MG Tablet PO SCH ×2 (08:58→20:40)
[2018-06-16] MEDS: Torsemide 20 MG Tablet PO SCH ×2 (09:07→20:35)
--- NOTE | 2018-06-16 09:33 | P.PN ---
Subjective Interval history: Vas cath placed yesterday by IR and plan for HD today. Still with some shortness of breath requiring oxygen. No abdominal pain. Anasarca improving some. No fever or chills. Some nonproductive cough Physical Exam Vital signs: Vital Signs 06/15/18 12:00 06/15/18 16:00 06/15/18 20:00 Temperature 98 F 98 F 97.2 F L Pulse Rate 56 L 64 67 Respiratory Rate 18 18 18 Blood Pressure 96/54 L 101/58 L 92/62 L Pulse Oximetry 97 100 94 L 06/16/18 00:00 06/16/18 04:00 06/16/18 08:46 Temperature 98.1 F 98.4 F Pulse Rate 62 62 Respiratory Rate 18 18 Blood Pressure 94/61 L 97/60 L Pulse Oximetry 98 99 99 Intake & Output 06/15/18 06/16/18 06/16/18 18:59 06:59 18:59 Intake Total 1420.5 / 1420.5 500.5 / 500.5 Output Total 15 15 Balance 1405.5 / 1405.5 500.5 / 500.5 Weight 100.5 kg Intake: IV 500.5 / 500.5 500.5 / 500.5 SandoSTATIN Inj 500 MCG In NS 500.5 / 500.5 500.5 / 500.5 Inj 500 ML @ 50 MCG/HR 50.05 mls/hr IV.CONT .Q10H SHALINI Rx#: [id number] Oral 920 / 920 Output: Urine Other: Date of Last Bowel Movement 06/15/18 # Bowel Movements 0 3 Narrative: GENERAL: Pleasant 58 yo male, with anasarca. Alert, Oriented x 3, appears in NAD. SKIN: Warm and dry. Anasarca EYES: No scleral icterus. No injection or drainage. NECK: Supple, trachea midline. No JVD or lymphadenopathy. CARDIOVASCULAR: Regular rate and rhythm without murmurs, gallops, or rubs. S1- S2 no S3 or S4 RESPIRATORY: Breath sounds equal bilaterally. No accessory muscle use. GASTROINTESTINAL: Abdomen distended, nontender to palpation good bowel sounds throughout soft nontender MUSCULOSKELETAL: No cyanosis. LESS edema in upper and lower ext. +1 in upper extremity and lower extremity bilaterally BACK: Nontender without obvious deformity. No CVA tenderness. Insight and judgment is limited. Mood and behavior is somewhat appropriate. - Urinary Catheter Management Indwelling Urethral Catheter Cath placed during this visit: yes Reason for continuing: Chronic Urinary Retention Insertion date: 06/04/18 Insertion time: 18:15 Results - Labs CBC & Chem 7: 06/13/18 03:42 06/13/18 03:42 - Procedures EXAM DATE: 06/06/2018 4:32 PM EDT AGE/SEX: 58 years / Male INDICATIONS: Patient with history of chronic kidney disease in need of non tunneled dialysis catheter CLINICAL DATA: This is the patient's initial encounter. Patient reports that signs and symptoms have been present for 1 week and indicates a pain score of 8/ 10. MEDICAL/SURGICAL HISTORY: Hepatitis C. Liver cirrhosis, CKD, CAD, A-Fib, HLD, HTN, COPD, RI, CHF, Raynauds syndrome Cholecystectomy. Aortic valve replacement, Knee surgery, CABG, Lung surgery, Back surgery COMPARISON: No prior exams available for comparison. FLUORO TIME (min): 0.1 IMAGE SERIES: 1 ACCESS SITE: Right internal jugular vein DEVICE(S): 14 Congolese double lumen X20CM Schon catheter . . PROCEDURE : 1. Ultrasound guided venipuncture. 2. Fluoroscopic guidance. 3. Central line placement. The risks, benefits and alternatives to the procedure were explained and verbal and written consent was obtained. The site was prepped in sterile fashion. Full sterile technique was used, including cap, mask, sterile gloves and gown and a large sterile sheet. Hand hygiene and 2% chlorhexidine prep was utilized per protocol for cutaneous antisepsis with appropriate dry time for site. Sterile gel and sterile probe cover were utilized for ultrasound guidance. The skin and subcutaneous tissues were infiltrated with local anesthetic solution. A suitable site above the vein was selected with ultrasound and fluoroscopic guidance. A small incision was made. The vein was accessed under direct ultrasound visualization using the micropuncture technique. The micropuncture set was exchanged for a 0.035 wire. The tract was dilated. The catheter was advanced into position under direct fluoroscopic visualization, and was advanced with the tip at the junction of the superior vena cava and rt atrium. The catheter was fixed in place with suture and a sterile dressing was applied. The patient tolerated the procedure well and there were no complications. CONCLUSION: 1. Uncomplicated line placement as above. Electronically signed by: Joe Garcia MD 06/07/2018 9:37 AM EDT Undergoing hemodialysis so far on and AND 06-09 Assessment and Plan - Plan Mr. Boogie is a pleasant 58-year-old male with a history of hepatitis C on Harvoni, CKD who was admitted to the hospital after he had a blood work at the [facility] which shows hypokalemia and worsening creatinine. Acute on chronic kidney disease Hyperkalemia Hyponatremia -Creatinine 2.5 --> 1.80 --> 1.90 ==> 2.2 ==> 2.9 ==> 3.7 NOW IS 4.26-- NOW 3.9 His baseline creatinine is about 1.4-1.6. -Is being given Lasix 80 mg IV twice daily as well as Zaroxolyn and ProAmatine -Potassium has improved. -Discussed with Nephrology on 06/03/2018. . -transfer patient to the main hospital. -Continue Midodrine, albumin and Octreotide. -May need at least transient dialysis. REMAINS CONFUSED CHECK AMMONIA NOW AND TOMORROW Acute renal failure status post chemo dialysis catheter placed on Status post hemodialysis on 06-06 and repeat hemodialysis on Hypokalemia replace with potassium bath during hemodialysis WATCH ELECTROLYTES Patient with hepato renal syndrome With azotemia and Creatinine requiring hemodialysis Urine sodium low Patient with hepatorenal syndrome patient with HCV cirrhosis and on transplant list at [facility] Vas-Cath replaced 06/15 after patient accidentally pulled vas cath. . Monitor kidney function Paroxysmal Atrial fibrillation -Patient takes Atenolol at home. Continue Metoprolol 25mg BID. -[id number] score 0. Although Aspirin would be beneficial, given his liver cirrhosis, it maybe risky to start Aspirin. 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 Liver cirrhosis Hepatitis C COAGULOPATHY -Patient is currently on Harvoni. Abdominal ultrasound did not reveal enough ascites to drain. -Patient follows up with [facility] with regards to liver transplant. - Morphine for abdominal pain. -Ammonia level is increased will make sure he is on lactulose may have to add rifaximin and increase lactulose to 3 times daily-ammonia level is still increased will monitor Full code. INR is 1.7 due to liver disease. Will start patient on Heparin 5000 unit SQ Q12hrs for DVT prophylaxis. PT AND OT TO EVAL AND TREAT consult pulmonary OXYGEN NEEDED BIPAP AT NIGHT AND FOR NAPS HD PER NEPHROLOGY Pulled central line by accident 06.14 . Nephrology ff if needs more dialysis might need a new line WILL NEED FOLLOW UP WITH [facility] AFTER DISCHARGE Code Status: FULL CODE Discussed Condition With: Patient, family at bedside his , nurse Discharge Planning: Plan to DC home with home health. Patient needs HD, so far not cleared by nephrology Anasarca improved with HD Cleared by GI to follow up as OP with GI at [facility] pending improvement and clearance by nephrology Pulled accidentally vas cath on 06/14. IR placed a new vas cath on 06/15, resume HD per nephrology Plan for hemodialysis tenia and worsening creatinine
[2018-06-16] MEDS: rifAXIMin 550 MG Tablet PO SCH ×2 (11:00→22:49)
[2018-06-16] MEDS: Nystatin 100,000 UNITS/GM Powder 15 GM Bottle TOPICAL SCH ×4 (11:00→20:36)
[2018-06-16] MEDS: HARVONI PO SCH (11:00)
--- NOTE | 2018-06-16 12:06 | P.PNNP ---
Subjective Interval history: Patient is alert, no SOB, not in distress. Physical Exam Vital signs: Vital Signs 06/15/18 16:00 06/15/18 20:00 06/16/18 00:00 Temperature 98 F 97.2 F L 98.1 F Pulse Rate 64 67 62 Respiratory Rate 18 18 18 Blood Pressure 101/58 L 92/62 L 94/61 L Pulse Oximetry 100 94 L 98 06/16/18 04:00 06/16/18 08:00 06/16/18 08:46 Temperature 98.4 F 97.6 F Pulse Rate 62 66 Respiratory Rate 18 16 Blood Pressure 97/60 L 111/69 Pulse Oximetry 99 96 99 Intake & Output 06/15/18 06/16/18 06/16/18 18:59 06:59 18:59 Intake Total 1420.5 / 1420.5 500.5 / 500.5 Output Total 15 Balance 1405.5 / 1405.5 500.5 / 500.5 Weight 100.5 kg Intake: IV 500.5 / 500.5 500.5 / 500.5 SandoSTATIN Inj 500 MCG In NS 500.5 / 500.5 500.5 / 500.5 Inj 500 ML @ 50 MCG/HR 50.05 mls/hr IV.CONT .Q10H SHALINI Rx#: [id number] Oral 920 / 920 Output: Urine Other: Date of Last Bowel Movement 06/15/18 06/16/18 # Bowel Movements 0 3 Narrative: GENERAL: Pleasant 58 yo male, with anasarca. Alert, Oriented x 3, appears in NAD. SKIN: Warm and dry. Anasarca EYES: No scleral icterus. No injection or drainage. NECK: Supple, trachea midline. No JVD or lymphadenopathy. CARDIOVASCULAR: Regular rate and rhythm without murmurs, gallops, or rubs. S1- S2 no S3 or S4 RESPIRATORY: Breath sounds equal bilaterally. No accessory muscle use. GASTROINTESTINAL: Abdomen distended, nontender to palpation good bowel sounds throughout soft nontender MUSCULOSKELETAL: No cyanosis. LESS edema in upper and lower ext. +1 in upper extremity and lower extremity bilaterally BACK: Nontender without obvious deformity. No CVA tenderness. Insight and judgment is limited. Mood and behavior is somewhat appropriate. - Urinary Catheter Management Indwelling Urethral Catheter Cath placed during this visit: yes Reason for continuing: Chronic Urinary Retention Insertion date: 06/04/18 Insertion time: 18:15 Assessment and Plan - Assessment (1) Acute renal failure superimposed on stage 3 chronic kidney disease Code(s): N17.9 - Acute kidney failure, unspecified; N18.3 - Chronic kidney disease, stage 3 (moderate) Status: Acute (2) Hyponatremia Code(s): E87.1 - Hypo-osmolality and hyponatremia Status: Acute (3) Cirrhosis Code(s): K74.60 - Unspecified cirrhosis of liver Status: Acute - Plan Worsening azotemia: Creatinine was elevated and ended up on hemodialysis Urine sodium low hepatorenal syndrome patient with HCV cirrhosis and on transplant list at [place] He remains on nasal cannula Hemodialysis will be done today. Vas-Cath replaced. Watch for renal recovery.
--- NOTE | 2018-06-16 12:29 | IR ---
EXAM DATE: 06/15/2018 7:37 PM EDT AGE/SEX: 58 years / Male INDICATIONS: Patient with a history of renal disease currently on hemodialysis, pulled his last vasc ath out, needs a new one. CLINICAL DATA: This is the patient's subsequent encounter. Patient reports that signs and symptoms h ave been present for 2 weeks and indicates a pain score of 0/10. MEDICAL/SURGICAL HISTORY: . Cirrhosis HTN AFIB CAD Hyperlipidemia COPD HEP [facility] . Aortic valve replacement Cholecystectomy Lung surgery CABG COMPARISON: No prior exams available for comparison. FLUORO TIME (min): 0.09 IMAGE SERIES: 1 ACCESS SITE: Right internal jugular vein SEDATION TIME (min): 0 CONTRAST (cc): 0 DEVICE(S): 14 Polish double lumen 15CM Schon catheter . . PROCEDURE : 1. Ultrasound guided venipuncture. 2. Fluoroscopic guidance. 3. Central line placement. The risks, benefits and alternatives to the procedure were explained and verbal and written consent w as obtained. The site was prepped in sterile fashion. Full sterile technique was used, including ca p, mask, sterile gloves and gown and a large sterile sheet. Hand hygiene and 2% chlorhexidine prep w as utilized per protocol for cutaneous antisepsis with appropriate dry time for site. Sterile gel an d sterile probe cover were utilized for ultrasound guidance. The skin and subcutaneous tissues were infiltrated with local anesthetic solution. A suitable site a keira the vein was selected with ultrasound and fluoroscopic guidance. A small incision was made. Th e vein was accessed under direct ultrasound visualization using the micropuncture technique. The idalia ropuncture set was exchanged for a 0.035 wire. The tract was dilated. The catheter was advanced int o position under direct fluoroscopic visualization, and was advanced with the tip at the junction of the superior vena cava and rt atrium. The catheter was fixed in place with suture and a sterile dres sing was applied. The patient tolerated the procedure well and there were no complications. CONCLUSION: 1. Uncomplicated line placement as above. Electronically signed by: Afshin Toure MD 06/16/2018 12:28 PM EDT
[2018-06-16] MEDS: Sod Chloride 0.9% Inj 1,000 ML OTHER PRN (15:50)
[2018-06-16] MEDS: Heparin 10,000 UNITS/10 ML Vial (for IV use) OTHER PRN (15:51)
[2018-06-17] MEDS: Octreotide Inj 500 MCG in Sodium Chlor 0.9% Inj 500 ML IV.CONT SCH ×2 (05:02→17:51)
[2018-06-17 05:10] LABS: Calcium 8.3 mg/dL (8.5-10.1); Potassium 3.7 meq/L (3.5-5.1)
[2018-06-17] MEDS: HARVONI PO SCH (09:50)
[2018-06-17] MEDS: Metoprolol Tartrate 50 MG Tablet PO SCH ×2 (09:50→21:34)
[2018-06-17] MEDS: Torsemide 20 MG Tablet PO SCH ×2 (09:50→21:34)
[2018-06-17] MEDS: Nystatin 100,000 UNITS/GM Powder 15 GM Bottle TOPICAL SCH ×4 (09:50→22:16)
[2018-06-17] MEDS: Heparin - SQ 10,000 UNITS/ML Vial SQ SCH ×2 (09:50→21:34)
[2018-06-17] MEDS: rifAXIMin 550 MG Tablet PO SCH ×2 (10:04→22:16)
[2018-06-17] MEDS: Heparin Central Flush 100 UNIT/ML 5 ML Vial IV.FLUSH SCH (10:51)
--- NOTE | 2018-06-17 11:09 | P.PN ---
Subjective Interval history: Feels tired. Had HD yesterday Anasarca improving. No n/v/d/c. Physical Exam Vital signs: Vital Signs 06/16/18 12:00 06/16/18 16:00 06/16/18 18:01 Temperature 97.8 F 97.4 F L Pulse Rate 65 62 Respiratory Rate 16 18 Blood Pressure 103/73 101/60 Pulse Oximetry 97 97 97 06/16/18 20:00 06/17/18 00:00 06/17/18 04:00 Temperature 97.1 F L 97.7 F 98.2 F Pulse Rate 64 60 63 Respiratory Rate 18 18 18 Blood Pressure 89/49 L 98/68 L 105/55 L Pulse Oximetry 100 98 98 06/17/18 08:00 Temperature 98.1 F Pulse Rate 65 Respiratory Rate 14 Blood Pressure 115/56 L Pulse Oximetry 99 Intake & Output 06/16/18 06/17/18 06/17/18 18:59 06:59 18:59 Intake Total 960.5 / 960.5 2220 / 2220 Output Total 3300 / 3300 100 / 100 Balance -2339.5 / -2339.5 2120 / 2120 Weight 97.7 kg Intake: IV 500.5 / 500.5 1420 / 1420 SandoSTATIN Inj 500 MCG In NS 500.5 / 500.5 420 / 420 Inj 500 ML @ 50 MCG/HR 50.05 mls/hr IV.CONT .Q10H [facility] Rx#: [id number] NS Inj 1,000 ML @ As Directed 1000 / 1000 OTHER .Q0M PRN Rx#:[id number] Oral 460 / 460 800 / 800 Output: Urine 300 / 300 100 / 100 Hemodialysis Amount 3000 / 3000 Other: Date of Last Bowel Movement 06/16/18 06/16/18 06/16/18 Narrative: GENERAL: Pleasant 58 yo male, with anasarca. Alert, Oriented x 3, appears in NAD. SKIN: Warm and dry. Anasarca improving. CARDIOVASCULAR: Regular rate and rhythm without murmurs, gallops, or rubs. S1- S2 no S3 or S4 RESPIRATORY: Breath sounds equal bilaterally. No accessory muscle use. GASTROINTESTINAL: Abdomen distended, nontender to palpation good bowel sounds throughout soft nontender MUSCULOSKELETAL: No cyanosis. LESS edema in upper and lower ext. +1 in upper extremity and lower extremity bilaterally BACK: Nontender without obvious deformity. No CVA tenderness. Insight and judgment is limited. Mood and behavior appropriate. - Urinary Catheter Management Indwelling Urethral Catheter Cath placed during this visit: yes Reason for continuing: Chronic Urinary Retention Insertion date: 06/04/18 Insertion time: 18:15 Results - Labs CBC & Chem 7: 06/13/18 03:42 06/17/18 03:50 Laboratory Results - last 24 hr 06/17/18 03:50 Sodium 138 Potassium 3.7 Chloride 100 Carbon Dioxide 29.0 Anion Gap 9 BUN 23 H Creatinine 3.95 H Estimated GFR 16 L Random Glucose 107 H Calcium 8.3 L - Imaging Impressions Catheter Placement 06/15/18 00:00 CONCLUSION: 1. Uncomplicated line placement as above. - Procedures EXAM DATE: 06/06/2018 4:32 PM EDT AGE/SEX: 58 years / Male INDICATIONS: Patient with history of chronic kidney disease in need of non tunneled dialysis catheter CLINICAL DATA: This is the patient's initial encounter. Patient reports that signs and symptoms have been present for 1 week and indicates a pain score of 8/ 10. MEDICAL/SURGICAL HISTORY: Hepatitis C. Liver cirrhosis, CKD, CAD, A-Fib, HLD, HTN, COPD, [place], CHF, Raynauds syndrome Cholecystectomy. Aortic valve replacement, Knee surgery, CABG, Lung surgery, Back surgery COMPARISON: No prior exams available for comparison. FLUORO TIME (min): 0.1 IMAGE SERIES: 1 ACCESS SITE: Right internal jugular vein DEVICE(S): 14 Azeri double lumen X20CM Schon catheter . . PROCEDURE : 1. Ultrasound guided venipuncture. 2. Fluoroscopic guidance. 3. Central line placement. The risks, benefits and alternatives to the procedure were explained and verbal and written consent was obtained. The site was prepped in sterile fashion. Full sterile technique was used, including cap, mask, sterile gloves and gown and a large sterile sheet. Hand hygiene and 2% chlorhexidine prep was utilized per protocol for cutaneous antisepsis with appropriate dry time for site. Sterile gel and sterile probe cover were utilized for ultrasound guidance. The skin and subcutaneous tissues were infiltrated with local anesthetic solution. A suitable site above the vein was selected with ultrasound and fluoroscopic guidance. A small incision was made. The vein was accessed under direct ultrasound visualization using the micropuncture technique. The micropuncture set was exchanged for a 0.035 wire. The tract was dilated. The catheter was advanced into position under direct fluoroscopic visualization, and was advanced with the tip at the junction of the superior vena cava and rt atrium. The catheter was fixed in place with suture and a sterile dressing was applied. The patient tolerated the procedure well and there were no complications. CONCLUSION: 1. Uncomplicated line placement as above. Electronically signed by: Joe Garcia MD 06/07/2018 9:37 AM EDT Undergoing hemodialysis so far on and AND 06-09 Assessment and Plan - Plan Mr. Boogie is a pleasant 58-year-old male with a history of hepatitis C on Harvoni, CKD who was admitted to the hospital after he had a blood work at the [place] which shows hypokalemia and worsening creatinine. Acute on chronic kidney disease Hyperkalemia Hyponatremia -Creatinine 2.5 --> 1.80 --> 1.90 ==> 2.2 ==> 2.9 ==> 3.7 NOW IS 4.26-- NOW 3.9 His baseline creatinine is about 1.4-1.6. -Is being given Lasix 80 mg IV twice daily as well as Zaroxolyn and ProAmatine -Potassium has improved. -Discussed with Nephrology on 06/03/2018. . -transfer patient to the main hospital. -Continue Midodrine, albumin and Octreotide. -May need at least transient dialysis. REMAINS CONFUSED CHECK AMMONIA NOW AND TOMORROW Acute renal failure status post chemo dialysis catheter placed on Status post hemodialysis on 06-06 and repeat hemodialysis on Hypokalemia replace with potassium bath during hemodialysis WATCH ELECTROLYTES Patient with hepato renal syndrome With azotemia and Creatinine requiring hemodialysis Urine sodium low Patient with hepatorenal syndrome patient with HCV cirrhosis and on transplant list at [place] Vas-Cath replaced 06/15 after patient accidentally pulled vas cath. . Monitor kidney function Paroxysmal Atrial fibrillation -Patient takes Atenolol at home. Continue Metoprolol 25mg BID. -[id number] score 0. Although Aspirin would be beneficial, given his liver cirrhosis, it maybe risky to start Aspirin. -Patient will discuss with his learning and development coordinator after hospitalization. Liver cirrhosis Hepatitis C COAGULOPATHY -Patient is currently on Harvoni. Abdominal ultrasound did not reveal enough ascites to drain. -Patient follows up with [place] with regards to liver transplant. - Morphine for abdominal pain. -Ammonia level is increased will make sure he is on lactulose may have to add rifaximin and increase lactulose to 3 times daily-ammonia level is still increased will monitor Full code. INR is 1.7 due to liver disease. Will start patient on Heparin 5000 unit SQ Q12hrs for DVT prophylaxis. PT AND OT TO EVAL AND TREAT consult pulmonary OXYGEN NEEDED BIPAP AT NIGHT AND FOR NAPS HD PER NEPHROLOGY Pulled central line by accident 06.14 . Nephrology ff if needs more dialysis might need a new line WILL NEED FOLLOW UP WITH [facility] AFTER DISCHARGE Code Status: FULL CODE Discussed Condition With: Patient, family at bedside his , nurse Discharge Planning: Plan to DC home with home health. Patient needs HD, so far not cleared by nephrology Anasarca improved with HD Cleared by GI to follow up as OP with GI at [facility] pending improvement and clearance by nephrology Pulled accidentally vas cath on 06/14. IR placed a new vas cath on 06/15 Continue HD per nephrology
--- NOTE | 2018-06-17 11:34 | P.PNNP ---
Subjective Interval history: Patient is alert, no SOB, doing better. Physical Exam Vital signs: Vital Signs 06/16/18 12:00 06/16/18 16:00 06/16/18 18:01 Temperature 97.8 F 97.4 F L Pulse Rate 65 62 Respiratory Rate 16 18 Blood Pressure 103/73 101/60 Pulse Oximetry 97 97 97 06/16/18 20:00 06/17/18 00:00 06/17/18 04:00 Temperature 97.1 F L 97.7 F 98.2 F Pulse Rate 64 60 63 Respiratory Rate 18 18 18 Blood Pressure 89/49 L 98/68 L 105/55 L Pulse Oximetry 100 98 98 06/17/18 08:00 06/17/18 11:16 Temperature 98.1 F Pulse Rate 65 Respiratory Rate 14 Blood Pressure 115/56 L Pulse Oximetry 99 99 Intake & Output 06/16/18 06/17/18 06/17/18 18:59 06:59 18:59 Intake Total 960.5 / 960.5 2220 / 2220 Output Total 3300 / 3300 100 / 100 Balance -2339.5 / -2339.5 2120 / 2120 Weight 97.7 kg Intake: IV 500.5 / 500.5 1420 / 1420 SandoSTATIN Inj 500 MCG In NS 500.5 / 500.5 420 / 420 Inj 500 ML @ 50 MCG/HR 50.05 mls/hr IV.CONT .Q10H [facility] Rx#: [id number] NS Inj 1,000 ML @ As Directed 1000 / 1000 OTHER .Q0M PRN Rx#:[id number] Oral 460 / 460 800 / 800 Output: Urine 300 / 300 100 / 100 Hemodialysis Amount 3000 / 3000 Other: Date of Last Bowel Movement 06/16/18 06/16/18 06/16/18 Narrative: GENERAL: Pleasant 58 yo male, with anasarca. Alert, Oriented x 3, appears in NAD. SKIN: Warm and dry. Anasarca EYES: No scleral icterus. No injection or drainage. NECK: Supple, trachea midline. No JVD or lymphadenopathy. CARDIOVASCULAR: Regular rate and rhythm without murmurs, gallops, or rubs. S1- S2 no S3 or S4 RESPIRATORY: Breath sounds equal bilaterally. No accessory muscle use. GASTROINTESTINAL: Abdomen distended, nontender to palpation good bowel sounds throughout soft nontender MUSCULOSKELETAL: No cyanosis. LESS edema in upper and lower ext. +1 in upper extremity and lower extremity bilaterally BACK: Nontender without obvious deformity. No CVA tenderness. Insight and judgment is limited. Mood and behavior is somewhat appropriate. - Urinary Catheter Management Indwelling Urethral Catheter Cath placed during this visit: yes Reason for continuing: Hourly intake/output Insertion date: 06/04/18 Insertion time: 18:15 Assessment and Plan - Assessment (1) Acute renal failure superimposed on stage 3 chronic kidney disease Code(s): N17.9 - Acute kidney failure, unspecified; N18.3 - Chronic kidney disease, stage 3 (moderate) Status: Acute (2) Hyponatremia Code(s): E87.1 - Hypo-osmolality and hyponatremia Status: Acute (3) Cirrhosis Code(s): K74.60 - Unspecified cirrhosis of liver Status: Acute - Plan Worsening azotemia: Creatinine was elevated and ended up on hemodialysis Urine sodium low hepatorenal syndrome patient with HCV cirrhosis and on transplant list at [place] He remains on nasal cannula Hemodialysis done yesterday. Vas-Cath replaced. Watch for renal recovery. Dr. Saul will follow from [facility], and decide about possibly getting PermCath.
--- NOTE | 2018-06-17 13:14 | P.PN ---
Subjective Interval history: ALERT NO SOB ON O2 NC Physical Exam Vital signs: Vital Signs 06/16/18 16:00 06/16/18 18:01 06/16/18 20:00 Temperature 97.4 F L 97.1 F L Pulse Rate 62 64 Respiratory Rate 18 18 Blood Pressure 101/60 89/49 L Pulse Oximetry 97 97 100 06/17/18 00:00 06/17/18 04:00 06/17/18 08:00 Temperature 97.7 F 98.2 F 98.1 F Pulse Rate 60 63 65 Respiratory Rate 18 18 14 Blood Pressure 98/68 L 105/55 L 115/56 L Pulse Oximetry 98 98 99 06/17/18 11:16 Temperature Pulse Rate Respiratory Rate Blood Pressure Pulse Oximetry 99 Intake & Output 06/16/18 06/17/18 06/17/18 18:59 06:59 18:59 Intake Total 960.5 / 960.5 2220 / 2220 Output Total 3300 / 3300 100 / 100 Balance -2339.5 / -2339.5 2120 / 2120 Weight 97.7 kg Intake: IV 500.5 / 500.5 1420 / 1420 SandoSTATIN Inj 500 MCG In NS 500.5 / 500.5 420 / 420 Inj 500 ML @ 50 MCG/HR 50.05 mls/hr IV.CONT .Q10H [facility] Rx#: [id number] NS Inj 1,000 ML @ As Directed 1000 / 1000 OTHER .Q0M PRN Rx#:[id number] Oral 460 / 460 800 / 800 Output: Urine 300 / 300 100 / 100 Hemodialysis Amount 3000 / 3000 Other: Date of Last Bowel Movement 06/16/18 06/16/18 06/16/18 Narrative: GENERAL: Pleasant 58 yo male, with anasarca. Alert, Oriented x 3, appears in NAD. SKIN: Warm and dry. Anasarca EYES: No scleral icterus. No injection or drainage. NECK: Supple, trachea midline. No JVD or lymphadenopathy. CARDIOVASCULAR: Regular rate and rhythm without murmurs, gallops, or rubs. S1- S2 no S3 or S4 RESPIRATORY: Breath sounds equal bilaterally. No accessory muscle use. GASTROINTESTINAL: Abdomen distended, nontender to palpation good bowel sounds throughout soft nontender MUSCULOSKELETAL: No cyanosis. LESS edema in upper and lower ext. +1 in upper extremity and lower extremity bilaterally BACK: Nontender without obvious deformity. No CVA tenderness. Insight and judgment is limited. Mood and behavior is somewhat appropriate. - Urinary Catheter Management Indwelling Urethral Catheter Cath placed during this visit: yes Reason for continuing: Hourly intake/output Insertion date: 06/04/18 Insertion time: 18:15 Results - Labs CBC & Chem 7: 06/13/18 03:42 06/17/18 03:50 Laboratory Results - last 24 hr 06/17/18 03:50 Sodium 138 Potassium 3.7 Chloride 100 Carbon Dioxide 29.0 Anion Gap 9 BUN 23 H Creatinine 3.95 H Estimated GFR 16 L Random Glucose 107 H Calcium 8.3 L - Procedures EXAM DATE: 06/06/2018 4:32 PM EDT AGE/SEX: 58 years / Male INDICATIONS: Patient with history of chronic kidney disease in need of non tunneled dialysis catheter CLINICAL DATA: This is the patient's initial encounter. Patient reports that signs and symptoms have been present for 1 week and indicates a pain score of 8/ 10. MEDICAL/SURGICAL HISTORY: Hepatitis C. Liver cirrhosis, CKD, CAD, A-Fib, HLD, HTN, COPD, [place], CHF, Raynauds syndrome Cholecystectomy. Aortic valve replacement, Knee surgery, CABG, Lung surgery, Back surgery COMPARISON: No prior exams available for comparison. FLUORO TIME (min): 0.1 IMAGE SERIES: 1 ACCESS SITE: Right internal jugular vein DEVICE(S): 14 Turkish double lumen X20CM Schon catheter . . PROCEDURE : 1. Ultrasound guided venipuncture. 2. Fluoroscopic guidance. 3. Central line placement. The risks, benefits and alternatives to the procedure were explained and verbal and written consent was obtained. The site was prepped in sterile fashion. Full sterile technique was used, including cap, mask, sterile gloves and gown and a large sterile sheet. Hand hygiene and 2% chlorhexidine prep was utilized per protocol for cutaneous antisepsis with appropriate dry time for site. Sterile gel and sterile probe cover were utilized for ultrasound guidance. The skin and subcutaneous tissues were infiltrated with local anesthetic solution. A suitable site above the vein was selected with ultrasound and fluoroscopic guidance. A small incision was made. The vein was accessed under direct ultrasound visualization using the micropuncture technique. The micropuncture set was exchanged for a 0.035 wire. The tract was dilated. The catheter was advanced into position under direct fluoroscopic visualization, and was advanced with the tip at the junction of the superior vena cava and rt atrium. The catheter was fixed in place with suture and a sterile dressing was applied. The patient tolerated the procedure well and there were no complications. CONCLUSION: 1. Uncomplicated line placement as above. Electronically signed by: Joe Garcia MD 06/07/2018 9:37 AM EDT Undergoing hemodialysis so far on 95 and 96 AND 9-8 Assessment and Plan - Plan RESPIRARY FAILYRE RENAL FAILURE CRISTIANE PLAN O2 NEEDED PAP THERAPY PULM TOILET INCREASE ACTIVITY
[2018-06-18] MEDS: Octreotide Inj 500 MCG in Sodium Chlor 0.9% Inj 500 ML IV.CONT SCH ×3 (06:17→21:52)
[2018-06-18] MEDS: Heparin - SQ 10,000 UNITS/ML Vial SQ SCH ×2 (08:38→21:41)
[2018-06-18] MEDS: HARVONI PO SCH (08:38)
[2018-06-18] MEDS: Torsemide 20 MG Tablet PO SCH ×2 (08:38→21:40)
[2018-06-18] MEDS: Metoprolol Tartrate 50 MG Tablet PO SCH ×2 (08:39→21:40)
[2018-06-18] MEDS: Heparin Central Flush 100 UNIT/ML 5 ML Vial IV.FLUSH SCH (08:39)
[2018-06-18] MEDS: Nystatin 100,000 UNITS/GM Powder 15 GM Bottle TOPICAL SCH ×5 (08:40→21:41)
[2018-06-18 10:07] LABS: Calcium 8.5 mg/dL (8.5-10.1)
[2018-06-18] MEDS: rifAXIMin 550 MG Tablet PO SCH ×2 (12:17→22:39)
--- NOTE | 2018-06-18 15:18 | P.PN ---
Subjective Interval history: In bed, appears chronically ill Plan for HD today No n/v/d/c No fever or chills. Physical Exam Vital signs: Vital Signs 06/17/18 15:24 06/17/18 17:49 06/17/18 20:00 Temperature 97.6 F 98 F Pulse Rate 62 64 Respiratory Rate 18 18 Blood Pressure 112/62 112/54 L Pulse Oximetry 98 98 98 06/18/18 00:00 06/18/18 04:00 06/18/18 08:00 Temperature 98.7 F 97.8 F 97.6 F Pulse Rate 64 72 59 L Respiratory Rate 18 19 18 Blood Pressure 130/80 109/58 L 122/57 L Pulse Oximetry 98 97 99 06/18/18 12:00 Temperature 98.1 F Pulse Rate 58 L Respiratory Rate 18 Blood Pressure 110/53 L Pulse Oximetry 100 Intake & Output 06/17/18 06/18/18 06/18/18 18:59 06:59 18:59 Intake Total 1440.5 / 1440.5 729 / 729 Output Total 50 / 50 150 / 150 Balance 1390.5 / 1390.5 579 / 579 Intake: IV 500.5 / 500.5 489 / 489 SandoSTATIN Inj 500 MCG In NS 500.5 / 500.5 489 / 489 Inj 500 ML @ 50 MCG/HR 50.05 mls/hr IV.CONT .Q10H [facility] Rx#: [id number] Oral 940 / 940 240 / 240 Output: Urine Amount (Catheter) 50 / 50 150 / 150 Indwelling Urethral Catheter 50 / 50 150 / 150 Other: Date of Last Bowel Movement 06/16/18 06/16/18 # Bowel Movements 1 Narrative: GENERAL: Pleasant 58 yo male, with anasarca. Alert, Oriented x 3, appears in NAD. SKIN: Warm and dry. Anasarca . CARDIOVASCULAR: Regular rate and rhythm without murmurs, gallops, or rubs. S1- S2 no S3 or S4 RESPIRATORY: Breath sounds equal bilaterally. No accessory muscle use. GASTROINTESTINAL: Abdomen distended, nontender to palpation good bowel sounds throughout soft nontender MUSCULOSKELETAL: No cyanosis. LESS edema in upper and lower ext. +1 in upper extremity and lower extremity bilaterally BACK: Nontender without obvious deformity. No CVA tenderness. Insight and judgment is limited. Mood and behavior appropriate. - Urinary Catheter Management Indwelling Urethral Catheter Cath placed during this visit: yes Reason for continuing: Chronic Urinary Retention Insertion date: 06/04/18 Insertion time: 18:15 Results - Labs CBC & Chem 7: 06/13/18 03:42 06/18/18 08:16 Laboratory Results - last 24 hr 06/18/18 08:16 Sodium 137 Potassium 4.0 Chloride 100 Carbon Dioxide 27.0 Anion Gap 10 BUN 30 H Creatinine 4.54 H Estimated GFR 13 L Random Glucose 78 Calcium 8.5 - Procedures EXAM DATE: 06/06/2018 4:32 PM EDT AGE/SEX: 58 years / Male INDICATIONS: Patient with history of chronic kidney disease in need of non tunneled dialysis catheter CLINICAL DATA: This is the patient's initial encounter. Patient reports that signs and symptoms have been present for 1 week and indicates a pain score of 8/ 10. MEDICAL/SURGICAL HISTORY: Hepatitis C. Liver cirrhosis, CKD, CAD, A-Fib, HLD, HTN, COPD, [place], CHF, Raynauds syndrome Cholecystectomy. Aortic valve replacement, Knee surgery, CABG, Lung surgery, Back surgery COMPARISON: No prior exams available for comparison. FLUORO TIME (min): 0.1 IMAGE SERIES: 1 ACCESS SITE: Right internal jugular vein DEVICE(S): 14 [place] double lumen X20CM Schon catheter . . PROCEDURE : 1. Ultrasound guided venipuncture. 2. Fluoroscopic guidance. 3. Central line placement. The risks, benefits and alternatives to the procedure were explained and verbal and written consent was obtained. The site was prepped in sterile fashion. Full sterile technique was used, including cap, mask, sterile gloves and gown and a large sterile sheet. Hand hygiene and 2% chlorhexidine prep was utilized per protocol for cutaneous antisepsis with appropriate dry time for site. Sterile gel and sterile probe cover were utilized for ultrasound guidance. The skin and subcutaneous tissues were infiltrated with local anesthetic solution. A suitable site above the vein was selected with ultrasound and fluoroscopic guidance. A small incision was made. The vein was accessed under direct ultrasound visualization using the micropuncture technique. The micropuncture set was exchanged for a 0.035 wire. The tract was dilated. The catheter was advanced into position under direct fluoroscopic visualization, and was advanced with the tip at the junction of the superior vena cava and rt atrium. The catheter was fixed in place with suture and a sterile dressing was applied. The patient tolerated the procedure well and there were no complications. CONCLUSION: 1. Uncomplicated line placement as above. Electronically signed by: Joe Garcia MD 06/07/2018 9:37 AM EDT Undergoing hemodialysis so far on and 96 AND 06-09 Assessment and Plan - Plan Mr. Boogie is a pleasant 58-year-old male with a history of hepatitis C on Harvoni, CKD who was admitted to the hospital after he had a blood work at the [place] which shows hypokalemia and worsening creatinine. Acute on chronic kidney disease Hyperkalemia Hyponatremia -Creatinine 2.5 --> 1.80 --> 1.90 ==> 2.2 ==> 2.9 ==> 3.7 NOW IS 4.26-- NOW 3.9 His baseline creatinine is about 1.4-1.6. -Is being given Lasix 80 mg IV twice daily as well as Zaroxolyn and ProAmatine -Potassium has improved. -Discussed with Nephrology on 06/03/2018. . -transfer patient to the main hospital. -Continue Midodrine, albumin and Octreotide. -May need at least transient dialysis. REMAINS CONFUSED CHECK AMMONIA NOW AND TOMORROW Acute renal failure status post chemo dialysis catheter placed on Status post hemodialysis on 06-06 and repeat hemodialysis on Hypokalemia replace with potassium bath during hemodialysis WATCH ELECTROLYTES Patient with hepato renal syndrome With azotemia and Creatinine requiring hemodialysis Urine sodium low Patient with hepatorenal syndrome patient with HCV cirrhosis and on transplant list at [place] Vas-Cath replaced 06/15 after patient accidentally pulled vas cath. . Monitor kidney function Paroxysmal Atrial fibrillation -Patient takes Atenolol at home. Continue Metoprolol 25mg BID. -[id number] score 0. Although Aspirin would be beneficial, given his liver cirrhosis, it maybe risky to start Aspirin. -Patient will discuss with his oracle software engineer after hospitalization. Liver cirrhosis Hepatitis C COAGULOPATHY -Patient is currently on Harvoni. Abdominal ultrasound did not reveal enough ascites to drain. -Patient follows up with [place] with regards to liver transplant. - Morphine for abdominal pain. -Ammonia level is increased will make sure he is on lactulose may have to add rifaximin and increase lactulose to 3 times daily-ammonia level is still increased will monitor Full code. INR is 1.7 due to liver disease. Will start patient on Heparin 5000 unit SQ Q12hrs for DVT prophylaxis. PT AND OT TO EVAL AND TREAT consult pulmonary OXYGEN NEEDED BIPAP AT NIGHT AND FOR NAPS HD PER NEPHROLOGY Pulled central line by accident 06.14 . Nephrology ff if needs more dialysis might need a new line WILL NEED FOLLOW UP WITH [facility] AFTER DISCHARGE Code Status: FULL CODE Discussed Condition With: Patient, family at bedside his , nurse Discharge Planning: Plan to DC home with home health. Patient needs HD, so far not cleared by nephrology Anasarca improved with HD Cleared by GI to follow up as OP with GI at [facility] pending improvement and clearance by nephrology Pulled accidentally vas cath on 06/14. IR placed a new vas cath on 06/15 Continue HD per nephrology
--- NOTE | 2018-06-18 15:53 | P.PN ---
Subjective Interval history: ALERT NAD ON O2 Physical Exam Vital signs: Vital Signs 06/17/18 17:49 06/17/18 20:00 06/18/18 00:00 Temperature 98 F 98.7 F Pulse Rate 64 64 Respiratory Rate 18 18 Blood Pressure 112/54 L 130/80 Pulse Oximetry 98 98 98 06/18/18 04:00 06/18/18 08:00 06/18/18 12:00 Temperature 97.8 F 97.6 F 98.1 F Pulse Rate 72 59 L 58 L Respiratory Rate 19 18 18 Blood Pressure 109/58 L 122/57 L 110/53 L Pulse Oximetry 97 99 100 Intake & Output 06/17/18 06/18/18 06/18/18 18:59 06:59 18:59 Intake Total 1440.5 / 1440.5 729 / 729 Output Total 50 / 50 150 / 150 Balance 1390.5 / 1390.5 579 / 579 Intake: IV 500.5 / 500.5 489 / 489 SandoSTATIN Inj 500 MCG In NS 500.5 / 500.5 489 / 489 Inj 500 ML @ 50 MCG/HR 50.05 mls/hr IV.CONT .Q10H [facility] Rx#: [id number] Oral 940 / 940 240 / 240 Output: Urine Amount (Catheter) 50 / 50 150 / 150 Indwelling Urethral Catheter 50 / 50 150 / 150 Other: Date of Last Bowel Movement 06/16/18 06/16/18 # Bowel Movements 1 Narrative: GENERAL: Pleasant 58 yo male, with anasarca. Alert, Oriented x 3, appears in NAD. SKIN: Warm and dry. Anasarca . CARDIOVASCULAR: Regular rate and rhythm without murmurs, gallops, or rubs. S1- S2 no S3 or S4 RESPIRATORY: Breath sounds equal bilaterally. No accessory muscle use. GASTROINTESTINAL: Abdomen distended, nontender to palpation good bowel sounds throughout soft nontender MUSCULOSKELETAL: No cyanosis. LESS edema in upper and lower ext. +1 in upper extremity and lower extremity bilaterally BACK: Nontender without obvious deformity. No CVA tenderness. Insight and judgment is limited. Mood and behavior appropriate. - Urinary Catheter Management Indwelling Urethral Catheter Cath placed during this visit: yes Reason for continuing: Chronic Urinary Retention Insertion date: 06/04/18 Insertion time: 18:15 Results - Labs CBC & Chem 7: 06/13/18 03:42 06/18/18 08:16 Laboratory Results - last 24 hr 06/18/18 08:16 Sodium 137 Potassium 4.0 Chloride 100 Carbon Dioxide 27.0 Anion Gap 10 BUN 30 H Creatinine 4.54 H Estimated GFR 13 L Random Glucose 78 Calcium 8.5 - Procedures EXAM DATE: 06/06/2018 4:32 PM EDT AGE/SEX: 58 years / Male INDICATIONS: Patient with history of chronic kidney disease in need of non tunneled dialysis catheter CLINICAL DATA: This is the patient's initial encounter. Patient reports that signs and symptoms have been present for 1 week and indicates a pain score of 8/ 10. MEDICAL/SURGICAL HISTORY: Hepatitis C. Liver cirrhosis, CKD, CAD, A-Fib, HLD, HTN, COPD, [place], CHF, Raynauds syndrome Cholecystectomy. Aortic valve replacement, Knee surgery, CABG, Lung surgery, Back surgery COMPARISON: No prior exams available for comparison. FLUORO TIME (min): 0.1 IMAGE SERIES: 1 ACCESS SITE: Right internal jugular vein DEVICE(S): 14 [place] double lumen X20CM Schon catheter . . PROCEDURE : 1. Ultrasound guided venipuncture. 2. Fluoroscopic guidance. 3. Central line placement. The risks, benefits and alternatives to the procedure were explained and verbal and written consent was obtained. The site was prepped in sterile fashion. Full sterile technique was used, including cap, mask, sterile gloves and gown and a large sterile sheet. Hand hygiene and 2% chlorhexidine prep was utilized per protocol for cutaneous antisepsis with appropriate dry time for site. Sterile gel and sterile probe cover were utilized for ultrasound guidance. The skin and subcutaneous tissues were infiltrated with local anesthetic solution. A suitable site above the vein was selected with ultrasound and fluoroscopic guidance. A small incision was made. The vein was accessed under direct ultrasound visualization using the micropuncture technique. The micropuncture set was exchanged for a 0.035 wire. The tract was dilated. The catheter was advanced into position under direct fluoroscopic visualization, and was advanced with the tip at the junction of the superior vena cava and rt atrium. The catheter was fixed in place with suture and a sterile dressing was applied. The patient tolerated the procedure well and there were no complications. CONCLUSION: 1. Uncomplicated line placement as above. Electronically signed by: Joe Garcia MD 06/07/2018 9:37 AM EDT Undergoing hemodialysis so far on 95 and 96 AND 9-8 Assessment and Plan - Plan RESPIRARY FAILYRE RENAL FAILURE CRISTIANE PLAN O2 NEEDED PAP THERAPY PULM TOILET INCREASE ACTIVITY
--- NOTE | 2018-06-18 18:00 | P.PNNP ---
Subjective Interval history: Has right arm pain with IV infiltration Physical Exam Vital signs: Vital Signs 06/17/18 20:00 06/18/18 00:00 06/18/18 04:00 Temperature 98 F 98.7 F 97.8 F Pulse Rate 64 64 72 Respiratory Rate 18 18 19 Blood Pressure 112/54 L 130/80 109/58 L Pulse Oximetry 98 98 97 06/18/18 08:00 06/18/18 12:00 06/18/18 16:00 Temperature 97.6 F 98.1 F 98.4 F Pulse Rate 59 L 58 L 61 Respiratory Rate 18 18 18 Blood Pressure 122/57 L 110/53 L 138/61 Pulse Oximetry 99 100 Intake & Output 06/17/18 06/18/18 06/18/18 18:59 06:59 18:59 Intake Total 1440.5 / 1440.5 729 / 729 1100.5 / 1100.5 Output Total 50 / 50 150 / 150 600 / 600 Balance 1390.5 / 1390.5 579 / 579 500.5 / 500.5 Intake: IV 500.5 / 500.5 489 / 489 500.5 / 500.5 SandoSTATIN Inj 500 MCG In NS 500.5 / 500.5 489 / 489 500.5 / 500.5 Inj 500 ML @ 50 MCG/HR 50.05 mls/hr IV.CONT .Q10H [facility] Rx#: [id number] Oral 940 / 940 240 / 240 600 / 600 Output: Urine 600 / 600 Urine Amount (Catheter) 50 / 50 150 / 150 Indwelling Urethral Catheter 50 / 50 150 / 150 Other: Date of Last Bowel Movement 06/16/18 06/16/18 # Bowel Movements 1 Narrative: GENERAL: Pleasant 58 yo male, with anasarca. Alert, Oriented x 3, appears in NAD. SKIN: Warm and dry. Anasarca . CARDIOVASCULAR: Regular rate and rhythm without murmurs, gallops, or rubs. S1- S2 no S3 or S4 RESPIRATORY: Breath sounds equal bilaterally. No accessory muscle use. GASTROINTESTINAL: Abdomen distended, nontender to palpation good bowel sounds throughout soft nontender MUSCULOSKELETAL: No cyanosis. LESS edema in upper and lower ext. +1 in upper extremity and lower extremity bilaterally BACK: Nontender without obvious deformity. No CVA tenderness. Insight and judgment is limited. Mood and behavior appropriate. - Urinary Catheter Management Indwelling Urethral Catheter Cath placed during this visit: yes Reason for continuing: Chronic Urinary Retention Insertion date: 06/04/18 Insertion time: 18:15 Assessment and Plan - Assessment (1) Acute renal failure superimposed on stage 3 chronic kidney disease Code(s): N17.9 - Acute kidney failure, unspecified; N18.3 - Chronic kidney disease, stage 3 (moderate) Status: Acute (2) Hyponatremia Code(s): E87.1 - Hypo-osmolality and hyponatremia Status: Acute (3) Cirrhosis Code(s): K74.60 - Unspecified cirrhosis of liver Status: Acute - Plan Worsening azotemia: Creatinine was elevated and ended up on hemodialysis Urine sodium low hepatorenal syndrome patient with HCV cirrhosis and on transplant list at [place] He remains on nasal cannula Hemodialysis done Monday. Right arm pain was discussed with staff, waiting instruction from primary care team. Vas-Cath replaced. Watch for renal recovery.
--- NOTE | 2018-06-18 20:16 | US ---
EXAM DATE: 06/18/2018 8:04 PM EDT AGE/SEX: 58 years / Male INDICATIONS: Right arm swelling. CLINICAL DATA: This is the patient's initial encounter. Patient reports that signs and symptoms have been present for 3 days and indicates a pain score of 10/10. MEDICAL/SURGICAL HISTORY: Congestive heart failure. Cirrhosis. Chronic obstructive pulmonary disease. Atrial fibrillation. Coronary artery disease. Endocarditis. Hypertension. Hepatitis C. Hyperlipidemi a. Myocardial infarct. Raynaud's syndrome. CABG. Cholecystectomy. Aortic valve replacement. Knee s urgery. Lung surgery. Back surgery. COMPARISON: No prior exams available for comparison. FINDINGS: The vessels are compressible and augmentation response is documented. No filling defects a re seen. The flow is phasic with respiration. Other: None. CONCLUSION: 1. Negative for deep venous thrombosis right upper extremity. Electronically signed by: Mian Watkins MD 06/18/2018 8:14 PM EDT
[2018-06-19 09:41] LABS: Carbon Dioxide 24.6 meq/L (21.0-32.0); Potassium 4.2 meq/L (3.5-5.1)
[2018-06-19] MEDS: Heparin 10,000 UNITS/10 ML Vial (for IV use) OTHER PRN (09:42)
[2018-06-19] MEDS: Sod Chloride 0.9% Inj 1,000 ML OTHER PRN (09:42)
[2018-06-19] MEDS: Metoprolol Tartrate 50 MG Tablet PO SCH ×2 (09:55→21:01)
[2018-06-19] MEDS: Heparin - SQ 10,000 UNITS/ML Vial SQ SCH ×2 (09:55→20:56)
[2018-06-19] MEDS: Torsemide 20 MG Tablet PO SCH ×2 (09:55→20:56)
[2018-06-19] MEDS: Heparin Central Flush 100 UNIT/ML 5 ML Vial IV.FLUSH SCH (09:55)
[2018-06-19] MEDS: HARVONI PO SCH (09:56)
[2018-06-19] MEDS: Nystatin 100,000 UNITS/GM Powder 15 GM Bottle TOPICAL SCH ×4 (09:56→21:01)
--- NOTE | 2018-06-19 10:53 | P.PNNP ---
Subjective Interval history: Complain of right arm pain Physical Exam Vital signs: Vital Signs 06/18/18 12:00 06/18/18 16:00 06/18/18 20:00 Temperature 98.1 F 98.4 F 97.3 F L Pulse Rate 58 L 61 73 Respiratory Rate 18 18 16 Blood Pressure 110/53 L 138/61 108/54 L Pulse Oximetry 100 94 L 06/18/18 21:36 06/19/18 00:00 06/19/18 04:00 Temperature 99.2 F 98.8 F Pulse Rate 71 72 Respiratory Rate 17 17 Blood Pressure 101/57 L 115/46 L Pulse Oximetry 94 L 94 L 93 L 06/19/18 08:00 Temperature 98.2 F Pulse Rate 66 Respiratory Rate 18 Blood Pressure 98/47 L Pulse Oximetry 99 Intake & Output 06/18/18 06/19/18 06/19/18 18:59 06:59 18:59 Intake Total 1100.5 / 1100.5 500.5 / 500.5 Output Total 600 / 600 Balance 500.5 / 500.5 500.5 / 500.5 Intake: IV 500.5 / 500.5 500.5 / 500.5 SandoSTATIN Inj 500 MCG In NS 500.5 / 500.5 500.5 / 500.5 Inj 500 ML @ 50 MCG/HR 50.05 mls/hr IV.CONT .Q10H [facility] Rx#: [id number] Oral 600 / 600 Output: Urine 600 / 600 Other: Date of Last Bowel Movement 06/16/18 06/16/18 # Bowel Movements 1 Narrative: GENERAL: Pleasant 58 yo male, with anasarca. Alert, Oriented x 3, appears in NAD. SKIN: Warm and dry. Anasarca . CARDIOVASCULAR: Regular rate and rhythm without murmurs, gallops, or rubs. S1- S2 no S3 or S4 RESPIRATORY: Breath sounds equal bilaterally. No accessory muscle use. GASTROINTESTINAL: Abdomen distended, nontender to palpation good bowel sounds throughout soft nontender MUSCULOSKELETAL: No cyanosis. LESS edema in upper and lower ext. +1 in upper extremity and lower extremity bilaterally BACK: Nontender without obvious deformity. No CVA tenderness. Insight and judgment is limited. Mood and behavior appropriate. - Urinary Catheter Management Indwelling Urethral Catheter Cath placed during this visit: yes Reason for continuing: Hourly intake/output Insertion date: 06/04/18 Insertion time: 18:15 Assessment and Plan - Assessment (1) Acute renal failure superimposed on stage 3 chronic kidney disease Code(s): N17.9 - Acute kidney failure, unspecified; N18.3 - Chronic kidney disease, stage 3 (moderate) Status: Acute (2) Hyponatremia Code(s): E87.1 - Hypo-osmolality and hyponatremia Status: Acute (3) Cirrhosis Code(s): K74.60 - Unspecified cirrhosis of liver Status: Acute - Plan Worsening azotemia: Creatinine was elevated and ended up on hemodialysis Urine sodium low hepatorenal syndrome patient with HCV cirrhosis and on transplant list at [place] He remains on nasal cannula Hemodialysis seen during hemodialysis tolerating it well 3 L of ultrafiltration attempted. Vas-Cath replaced. Watch for renal recovery.
[2018-06-19] MEDS: rifAXIMin 550 MG Tablet PO SCH ×2 (11:09→23:46)
[2018-06-19] MEDS ORDERED: Morphine Sulfate Inj 2 MG/ML Vial IV.PUSH ONE (11:18)
--- NOTE | 2018-06-19 11:21 | P.PN ---
Subjective Interval history: The patient is in bed says he has pain in his right arm there is also some redness. No fever or chills. Plan for dialysis. No nausea or vomiting. Physical Exam Vital signs: Vital Signs 06/18/18 12:00 06/18/18 16:00 06/18/18 20:00 Temperature 98.1 F 98.4 F 97.3 F L Pulse Rate 58 L 61 73 Respiratory Rate 18 18 16 Blood Pressure 110/53 L 138/61 108/54 L Pulse Oximetry 100 94 L 06/18/18 21:36 06/19/18 00:00 06/19/18 04:00 Temperature 99.2 F 98.8 F Pulse Rate 71 72 Respiratory Rate 17 17 Blood Pressure 101/57 L 115/46 L Pulse Oximetry 94 L 94 L 93 L 06/19/18 08:00 Temperature 98.2 F Pulse Rate 66 Respiratory Rate 18 Blood Pressure 98/47 L Pulse Oximetry 99 Intake & Output 06/18/18 06/19/18 06/19/18 18:59 06:59 18:59 Intake Total 1100.5 / 1100.5 500.5 / 500.5 Output Total 600 / 600 Balance 500.5 / 500.5 500.5 / 500.5 Intake: IV 500.5 / 500.5 500.5 / 500.5 SandoSTATIN Inj 500 MCG In NS 500.5 / 500.5 500.5 / 500.5 Inj 500 ML @ 50 MCG/HR 50.05 mls/hr IV.CONT .Q10H [facility] Rx#: [id number] Oral 600 / 600 Output: Urine 600 / 600 Other: Date of Last Bowel Movement 06/16/18 06/16/18 # Bowel Movements 1 Narrative: GENERAL: Pleasant 58 yo male, with anasarca. Alert, Oriented x 3, appears in NAD. SKIN: Warm and dry. Anasarca . Right arm is more swollen and there is redness and tenderness to palpation. CARDIOVASCULAR: Regular rate and rhythm without murmurs, gallops, or rubs. S1- S2 no S3 or S4 RESPIRATORY: Breath sounds equal bilaterally. No accessory muscle use. GASTROINTESTINAL: Abdomen distended, nontender to palpation good bowel sounds throughout soft nontender MUSCULOSKELETAL: No cyanosis. LESS edema in upper and lower ext. +1 in upper extremity and lower extremity bilaterally BACK: Nontender without obvious deformity. No CVA tenderness. Insight and judgment is limited. Mood and behavior appropriate. - Urinary Catheter Management Indwelling Urethral Catheter Cath placed during this visit: yes Reason for continuing: Chronic Urinary Retention Insertion date: 06/04/18 Insertion time: 18:15 Results - Labs CBC & Chem 7: 06/13/18 03:42 06/19/18 08:27 Laboratory Results - last 24 hr 06/19/18 08:27 Sodium 134 L Potassium 4.2 Chloride 98 Carbon Dioxide 24.6 Anion Gap 11 BUN 34 H Creatinine 5.03 H Estimated GFR 12 L Random Glucose 75 Calcium 9.0 - Imaging Impressions Venous Doppler Study 06/18/18 00:00 CONCLUSION: 1. Negative for deep venous thrombosis right upper extremity. - Procedures EXAM DATE: 06/06/2018 4:32 PM EDT AGE/SEX: 58 years / Male INDICATIONS: Patient with history of chronic kidney disease in need of non tunneled dialysis catheter CLINICAL DATA: This is the patient's initial encounter. Patient reports that signs and symptoms have been present for 1 week and indicates a pain score of 8/ 10. MEDICAL/SURGICAL HISTORY: Hepatitis C. Liver cirrhosis, CKD, CAD, A-Fib, HLD, HTN, COPD, [place], CHF, Raynauds syndrome Cholecystectomy. Aortic valve replacement, Knee surgery, CABG, Lung surgery, Back surgery COMPARISON: No prior exams available for comparison. FLUORO TIME (min): 0.1 IMAGE SERIES: 1 ACCESS SITE: Right internal jugular vein DEVICE(S): 14 [place] double lumen X20CM Schon catheter . . PROCEDURE : 1. Ultrasound guided venipuncture. 2. Fluoroscopic guidance. 3. Central line placement. The risks, benefits and alternatives to the procedure were explained and verbal and written consent was obtained. The site was prepped in sterile fashion. Full sterile technique was used, including cap, mask, sterile gloves and gown and a large sterile sheet. Hand hygiene and 2% chlorhexidine prep was utilized per protocol for cutaneous antisepsis with appropriate dry time for site. Sterile gel and sterile probe cover were utilized for ultrasound guidance. The skin and subcutaneous tissues were infiltrated with local anesthetic solution. A suitable site above the vein was selected with ultrasound and fluoroscopic guidance. A small incision was made. The vein was accessed under direct ultrasound visualization using the micropuncture technique. The micropuncture set was exchanged for a 0.035 wire. The tract was dilated. The catheter was advanced into position under direct fluoroscopic visualization, and was advanced with the tip at the junction of the superior vena cava and rt atrium. The catheter was fixed in place with suture and a sterile dressing was applied. The patient tolerated the procedure well and there were no complications. CONCLUSION: 1. Uncomplicated line placement as above. Electronically signed by: Joe Garcia MD 06/07/2018 9:37 AM EDT Undergoing hemodialysis so far on and AND 06-09 Assessment and Plan - Plan Mr. Boogie is a pleasant 58-year-old male with a history of hepatitis C on Harvoni, CKD who was admitted to the hospital after he had a blood work at the [place] which shows hypokalemia and worsening creatinine. Acute on chronic kidney disease Hyperkalemia Hyponatremia -Creatinine 2.5 --> 1.80 --> 1.90 ==> 2.2 ==> 2.9 ==> 3.7 NOW IS 4.26-- NOW 3.9 His baseline creatinine is about 1.4-1.6. -Is being given Lasix 80 mg IV twice daily as well as Zaroxolyn and ProAmatine -Potassium has improved. -Discussed with Nephrology on 06/03/2018. . -transfer patient to the main hospital. -Continue Midodrine, albumin and Octreotide. -May need at least transient dialysis. REMAINS CONFUSED CHECK AMMONIA NOW AND TOMORROW Acute renal failure status post chemo dialysis catheter placed on Status post hemodialysis on 06-06 and repeat hemodialysis on Hypokalemia replace with potassium bath during hemodialysis WATCH ELECTROLYTES Patient with hepato renal syndrome With azotemia and Creatinine requiring hemodialysis Urine sodium low Patient with hepatorenal syndrome patient with HCV cirrhosis and on transplant list at [place] Vas-Cath replaced 06/15 after patient accidentally pulled vas cath. . Monitor kidney function Paroxysmal Atrial fibrillation -Patient takes Atenolol at home. Continue Metoprolol 25mg BID. -[id number] score 0. Although Aspirin would be beneficial, given his liver cirrhosis, it maybe risky to start Aspirin. 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 Liver cirrhosis Hepatitis C COAGULOPATHY -Patient is currently on Harvoni. Abdominal ultrasound did not reveal enough ascites to drain. -Patient follows up with [place] with regards to liver transplant. - Morphine for abdominal pain. -Ammonia level is increased will make sure he is on lactulose may have to add rifaximin and increase lactulose to 3 times daily-ammonia level is still increased will monitor Full code. INR is 1.7 due to liver disease. Will start patient on Heparin 5000 unit SQ Q12hrs for DVT prophylaxis. PT AND OT TO EVAL AND TREAT consult pulmonary OXYGEN NEEDED BIPAP AT NIGHT AND FOR NAPS HD PER NEPHROLOGY Pulled central line by accident 06.14 . Nephrology ff if needs more dialysis might need a new line Right arm possible cellulitis ?. Patient with swelling redness and pain of the right arm. Check CBC, CMP. Wound cultures possible. Consult wound care. Start Bactrim. Add ketorolac. For severe pain. Continue hemodialysis as patient will anasarca. WILL NEED FOLLOW UP WITH [place] [facility] AFTER DISCHARGE Code Status: FULL CODE Discussed Condition With: Patient, family at bedside his , nurse Discharge Planning: Plan to DC home with home health. Patient needs HD, so far not cleared by nephrology Anasarca improved with HD Cleared by GI to follow up as OP with GI at [facility] pending improvement and clearance by nephrology Pulled accidentally vas cath on 06/14. IR placed a new vas cath on 06/15 Continue HD per nephrology
[2018-06-19] MEDS ORDERED: Ketorolac Inj 30 MG/ML (IVP) Vial IV.PUSH PRN (17:12)
[2018-06-19] MEDS: Octreotide Inj 500 MCG in Sodium Chlor 0.9% Inj 500 ML IV.CONT SCH ×2 (17:29→18:08)
--- NOTE | 2018-06-19 18:28 | P.PN ---
Subjective Interval history: alert nad on o2 nc Physical Exam Vital signs: Vital Signs 06/18/18 20:00 06/18/18 21:36 06/19/18 00:00 Temperature 97.3 F L 99.2 F Pulse Rate 73 71 Respiratory Rate 16 17 Blood Pressure 108/54 L 101/57 L Pulse Oximetry 94 L 94 L 94 L 06/19/18 04:00 06/19/18 08:00 06/19/18 13:00 Temperature 98.8 F 98.2 F 97.3 F L Pulse Rate 72 66 67 Respiratory Rate 17 18 18 Blood Pressure 115/46 L 98/47 L 91/52 L Pulse Oximetry 93 L 99 94 L 06/19/18 16:00 06/19/18 18:02 Temperature 97.8 F Pulse Rate 64 Respiratory Rate 20 Blood Pressure 90/50 L Pulse Oximetry 94 L 94 L Intake & Output 06/18/18 06/19/18 06/19/18 18:59 06:59 18:59 Intake Total 1100.5 / 1100.5 500.5 / 500.5 500.5 / 500.5 Output Total 600 / 600 3000 / 3000 Balance 500.5 / 500.5 500.5 / 500.5 -2499.5 / -2499.5 Intake: IV 500.5 / 500.5 500.5 / 500.5 500.5 / 500.5 SandoSTATIN Inj 500 MCG In NS 500.5 / 500.5 500.5 / 500.5 500.5 / 500.5 Inj 500 ML @ 50 MCG/HR 50.05 mls/hr IV.CONT .Q10H [facility] Rx#: [id number] Oral 600 / 600 Output: Urine 600 / 600 Peritoneal Amount 3000 / 3000 Other: # Voids 0 Date of Last Bowel Movement 06/16/18 06/16/18 # Bowel Movements 1 Narrative: GENERAL: Pleasant 58 yo male, with anasarca. Alert, Oriented x 3, appears in NAD. SKIN: Warm and dry. Anasarca . Right arm is more swollen and there is redness and tenderness to palpation. CARDIOVASCULAR: Regular rate and rhythm without murmurs, gallops, or rubs. S1- S2 no S3 or S4 RESPIRATORY: Breath sounds equal bilaterally. No accessory muscle use. GASTROINTESTINAL: Abdomen distended, nontender to palpation good bowel sounds throughout soft nontender MUSCULOSKELETAL: No cyanosis. LESS edema in upper and lower ext. +1 in upper extremity and lower extremity bilaterally BACK: Nontender without obvious deformity. No CVA tenderness. Insight and judgment is limited. Mood and behavior appropriate. - Urinary Catheter Management Indwelling Urethral Catheter Cath placed during this visit: yes Reason for continuing: Chronic Urinary Retention Insertion date: 06/04/18 Insertion time: 18:15 Results - Labs CBC & Chem 7: 06/13/18 03:42 06/19/18 08:27 Laboratory Results - last 24 hr 06/19/18 08:27 Sodium 134 L Potassium 4.2 Chloride 98 Carbon Dioxide 24.6 Anion Gap 11 BUN 34 H Creatinine 5.03 H Estimated GFR 12 L Random Glucose 75 Calcium 9.0 - Imaging Impressions Venous Doppler Study 06/18/18 00:00 CONCLUSION: 1. Negative for deep venous thrombosis right upper extremity. - Procedures EXAM DATE: 06/06/2018 4:32 PM EDT AGE/SEX: 58 years / Male INDICATIONS: Patient with history of chronic kidney disease in need of non tunneled dialysis catheter CLINICAL DATA: This is the patient's initial encounter. Patient reports that signs and symptoms have been present for 1 week and indicates a pain score of 8/ 10. MEDICAL/SURGICAL HISTORY: Hepatitis C. Liver cirrhosis, CKD, CAD, A-Fib, HLD, HTN, COPD, [place], CHF, Raynauds syndrome Cholecystectomy. Aortic valve replacement, Knee surgery, CABG, Lung surgery, Back surgery COMPARISON: No prior exams available for comparison. FLUORO TIME (min): 0.1 IMAGE SERIES: 1 ACCESS SITE: Right internal jugular vein DEVICE(S): 14 [place] double lumen X20CM Schon catheter . . PROCEDURE : 1. Ultrasound guided venipuncture. 2. Fluoroscopic guidance. 3. Central line placement. The risks, benefits and alternatives to the procedure were explained and verbal and written consent was obtained. The site was prepped in sterile fashion. Full sterile technique was used, including cap, mask, sterile gloves and gown and a large sterile sheet. Hand hygiene and 2% chlorhexidine prep was utilized per protocol for cutaneous antisepsis with appropriate dry time for site. Sterile gel and sterile probe cover were utilized for ultrasound guidance. The skin and subcutaneous tissues were infiltrated with local anesthetic solution. A suitable site above the vein was selected with ultrasound and fluoroscopic guidance. A small incision was made. The vein was accessed under direct ultrasound visualization using the micropuncture technique. The micropuncture set was exchanged for a 0.035 wire. The tract was dilated. The catheter was advanced into position under direct fluoroscopic visualization, and was advanced with the tip at the junction of the superior vena cava and rt atrium. The catheter was fixed in place with suture and a sterile dressing was applied. The patient tolerated the procedure well and there were no complications. CONCLUSION: 1. Uncomplicated line placement as above. Electronically signed by: Joe Garcia MD 06/07/2018 9:37 AM EDT Undergoing hemodialysis so far on 95 and 96 AND 9-8 Assessment and Plan - Plan RESPIRARY FAILYRE RENAL FAILURE CRISTIANE PLAN O2 NEEDED PAP THERAPY PULM TOILET INCREASE ACTIVITY
[2018-06-19 21:54] LABS: Baso % (Auto) 0.4 % (0.0-2.0); Eos # (Auto) 0.1 th/mm3 (0.0-0.4); Eos % (Auto) 0.8 % (0.0-4.0); Hematocrit 28.9 % (39.0-51.0); Hemoglobin 9.3 gm/dL (13.0-17.0); Lymph # (Auto) 0.9 th/mm3 (1.0-4.8); Lymph % (Auto) 7.1 % (9.0-44.0); Mean Corpuscular HGB Conc 32.4 % (32.0-36.0); Mean Corpuscular Hemoglobin 27.9 pg (27.0-34.0); Mean Corpuscular Volume 86.2 fL (80.0-100.0); Mean Platelet Volume 7.6 fL (7.0-11.0); Mono # (Auto) 0.9 th/mm3 (0.0-0.9); Mono % (Auto) 7.1 % (0.0-8.0); Neut # (Auto) 11.1 th/mm3 (1.8-7.7); Neut % (Auto) 84.6 % (16.0-70.0); Platelet Count 140 th/mm3 (150-450); Red Blood Count 3.35 mil/mm3 (4.50-5.90); Red Cell Distribution Width 20.5 % (11.6-17.2); White Blood Count 13.1 th/mm3 (4.0-11.0)
[2018-06-19 22:16] LABS: Albumin 4.3 g/dL (3.4-5.0); Anion Gap 11 meq/L (5-15); Aspartate Aminotransferase 25 U/L (15-37); Blood Urea Nitrogen 25 mg/dL (7-18); Calcium 8.7 mg/dL (8.5-10.1); Carbon Dioxide 26.2 meq/L (21.0-32.0); Chloride 97 meq/L (98-107); Glomerular Filtration Rate 15 mL/min (>89); Glucose,Random 138 mg/dL (74-106); Potassium 3.8 meq/L (3.5-5.1); Sodium 134 meq/L (136-145)
[2018-06-19 22:17] LABS: Alanine Aminotransferase 16 U/L (12-78)
[2018-06-19 22:19] LABS: Alkaline Phosphatase 53 U/L (45-117); Total Protein 7.2 g/dL (6.4-8.2)
[2018-06-20] MEDS: Octreotide Inj 500 MCG in Sodium Chlor 0.9% Inj 500 ML IV.CONT SCH ×2 (04:30→15:49)
[2018-06-20 05:28] LABS: Baso % (Auto) 0.3 % (0.0-2.0); Eos # (Auto) 0.3 th/mm3 (0.0-0.4); Eos % (Auto) 2.6 % (0.0-4.0); Hematocrit 26.7 % (39.0-51.0); Lymph # (Auto) 1.2 th/mm3 (1.0-4.8); Lymph % (Auto) 9.2 % (9.0-44.0); Mean Corpuscular HGB Conc 33.8 % (32.0-36.0); Mean Corpuscular Hemoglobin 28.6 pg (27.0-34.0); Mean Corpuscular Volume 84.8 fL (80.0-100.0); Mono # (Auto) 1.1 th/mm3 (0.0-0.9); Mono % (Auto) 8.7 % (0.0-8.0); Neut % (Auto) 79.2 % (16.0-70.0); Platelet Count 126 th/mm3 (150-450); Red Blood Count 3.14 mil/mm3 (4.50-5.90); Red Cell Distribution Width 20.7 % (11.6-17.2); White Blood Count 12.6 th/mm3 (4.0-11.0)
[2018-06-20 05:56] LABS: Calcium 8.6 mg/dL (8.5-10.1); Carbon Dioxide 26.3 meq/L (21.0-32.0); Potassium 3.8 meq/L (3.5-5.1)
[2018-06-20] MEDS: Metoprolol Tartrate 50 MG Tablet PO SCH ×2 (09:00→23:14)
[2018-06-20] MEDS: HARVONI PO SCH (09:00)
[2018-06-20] MEDS: Heparin - SQ 10,000 UNITS/ML Vial SQ SCH ×2 (09:02→23:13)
[2018-06-20] MEDS: Torsemide 20 MG Tablet PO SCH ×2 (09:03→23:13)
[2018-06-20] MEDS: Heparin Central Flush 100 UNIT/ML 5 ML Vial IV.FLUSH SCH (09:05)
[2018-06-20] MEDS: rifAXIMin 550 MG Tablet PO SCH ×2 (11:00→23:13)
--- NOTE | 2018-06-20 11:35 | P.PN ---
Subjective Interval history: Still with swelling and redness in his right elbow, jose l rosa, say after HD it gets a little better ,advice to keep arm elevated and also apply mild compressing gauze as might help. No fever ro chills No n/v/d/c. Not eating much Fels tired Physical Exam Vital signs: Vital Signs 06/19/18 13:00 06/19/18 16:00 06/19/18 18:02 Temperature 97.3 F L 97.8 F Pulse Rate 67 64 Respiratory Rate 18 20 Blood Pressure 91/52 L 90/50 L Pulse Oximetry 94 L 94 L 94 L 06/19/18 20:00 06/19/18 23:43 06/20/18 03:23 Temperature 98.5 F 98.3 F 98.0 F Pulse Rate 63 64 62 Respiratory Rate 16 17 17 Blood Pressure 102/54 L 98/54 L 90/54 L Pulse Oximetry 99 99 98 06/20/18 08:00 Temperature 98.0 F Pulse Rate 62 Respiratory Rate 18 Blood Pressure 80/44 L Pulse Oximetry 100 Intake & Output 06/19/18 06/20/18 06/20/18 18:59 06:59 18:59 Intake Total 500.5 / 500.5 980.5 / 980.5 Output Total 3000 / 3000 200 / 200 Balance -2499.5 / -2499.5 780.5 / 780.5 Weight 97.7 kg Intake: IV 500.5 / 500.5 500.5 / 500.5 SandoSTATIN Inj 500 MCG In NS 500.5 / 500.5 500.5 / 500.5 Inj 500 ML @ 50 MCG/HR 50.05 mls/hr IV.CONT .Q10H SHALINI Rx#: [id number] Oral 480 / 480 Output: Urine 200 / 200 Peritoneal Amount 3000 / 3000 Other: # Voids 0 Date of Last Bowel Movement 06/16/18 06/16/18 # Bowel Movements 0 Narrative: GENERAL: Pleasant 58 yo male, with anasarca. Alert, Oriented x 3, appears in NAD. SKIN: Warm and dry. Anasarca . Right arm is more swollen and there is redness and tenderness to palpation. CARDIOVASCULAR: Regular rate and rhythm without murmurs, gallops, or rubs. S1- S2 no S3 or S4 RESPIRATORY: Breath sounds equal bilaterally. No accessory muscle use. GASTROINTESTINAL: Abdomen distended, nontender to palpation good bowel sounds throughout soft nontender MUSCULOSKELETAL: No cyanosis. LESS edema in upper and lower ext. +1 in upper extremity and lower extremity bilaterally. Right arm with worsening edema +2, redness and pain to palpation. Anasarca. BACK: Nontender without obvious deformity. No CVA tenderness. Insight and judgment is limited. Mood and behavior appropriate. - Urinary Catheter Management Indwelling Urethral Catheter Cath placed during this visit: yes Reason for continuing: Hourly intake/output Insertion date: 06/04/18 Insertion time: 18:15 Results - Labs CBC & Chem 7: 06/20/18 04:18 06/20/18 04:18 Laboratory Results - last 24 hr 06/19/18 06/19/18 06/20/18 21:44 21:44 04:18 WBC 13.1 H RBC 3.35 L Hgb 9.3 L Hct 28.9 L MCV 86.2 MCH 27.9 MCHC 32.4 RDW 20.5 H Plt Count 140 L D MPV 7.6 Neut % (Auto) 84.6 H Lymph % (Auto) 7.1 L [place] % (Auto) 7.1 Eos % (Auto) 0.8 Baso % (Auto) 0.4 Neut # (Auto) 11.1 H Lymph # (Auto) 0.9 L [place] # (Auto) 0.9 Eos # (Auto) 0.1 Baso # (Auto) 0.0 WBC Differential . Differential Comment Auto diff final Sodium 134 L 134 L Potassium 3.8 3.8 Chloride 97 L 96 L Carbon Dioxide 26.2 26.3 Anion Gap 11 12 BUN 25 H 27 H Creatinine 4.11 H 4.20 H Estimated GFR 15 L 15 L Random Glucose 138 H 113 H Calcium 8.7 8.6 Total Bilirubin 2.3 H AST 25 ALT 16 Alkaline Phosphatase 53 Total Protein 7.2 Albumin 4.3 06/20/18 04:18 WBC 12.6 H RBC 3.14 L Hgb 9.0 L Hct 26.7 L MCV 84.8 MCH 28.6 MCHC 33.8 RDW 20.7 H Plt Count 126 L MPV 8.0 Neut % (Auto) 79.2 H Lymph % (Auto) 9.2 [place] % (Auto) 8.7 H Eos % (Auto) 2.6 Baso % (Auto) 0.3 Neut # (Auto) 10.0 H Lymph # (Auto) 1.2 [place] # (Auto) 1.1 H Eos # (Auto) 0.3 Baso # (Auto) 0.0 WBC Differential . Differential Comment Auto diff final Sodium Potassium Chloride Carbon Dioxide Anion Gap BUN Creatinine Estimated GFR Random Glucose Calcium Total Bilirubin AST ALT Alkaline Phosphatase Total Protein Albumin - Procedures EXAM DATE: 06/06/2018 4:32 PM EDT AGE/SEX: 58 years / Male INDICATIONS: Patient with history of chronic kidney disease in need of non tunneled dialysis catheter CLINICAL DATA: This is the patient's initial encounter. Patient reports that signs and symptoms have been present for 1 week and indicates a pain score of 8/ 10. MEDICAL/SURGICAL HISTORY: Hepatitis C. Liver cirrhosis, CKD, CAD, A-Fib, HLD, HTN, COPD, [place], CHF, Raynauds syndrome Cholecystectomy. Aortic valve replacement, Knee surgery, CABG, Lung surgery, Back surgery COMPARISON: No prior exams available for comparison. FLUORO TIME (min): 0.1 IMAGE SERIES: 1 ACCESS SITE: Right internal jugular vein DEVICE(S): 14 [place]vian double lumen X20CM Schon catheter . . PROCEDURE : 1. Ultrasound guided venipuncture. 2. Fluoroscopic guidance. 3. Central line placement. The risks, benefits and alternatives to the procedure were explained and verbal and written consent was obtained. The site was prepped in sterile fashion. Full sterile technique was used, including cap, mask, sterile gloves and gown and a large sterile sheet. Hand hygiene and 2% chlorhexidine prep was utilized per protocol for cutaneous antisepsis with appropriate dry time for site. Sterile gel and sterile probe cover were utilized for ultrasound guidance. The skin and subcutaneous tissues were infiltrated with local anesthetic solution. A suitable site above the vein was selected with ultrasound and fluoroscopic guidance. A small incision was made. The vein was accessed under direct ultrasound visualization using the micropuncture technique. The micropuncture set was exchanged for a 0.035 wire. The tract was dilated. The catheter was advanced into position under direct fluoroscopic visualization, and was advanced with the tip at the junction of the superior vena cava and rt atrium. The catheter was fixed in place with suture and a sterile dressing was applied. The patient tolerated the procedure well and there were no complications. CONCLUSION: 1. Uncomplicated line placement as above. Electronically signed by: Joe Garcia MD 06/07/2018 9:37 AM EDT Undergoing hemodialysis so far on and AND 06-09 Assessment and Plan - Plan Mr. Boogie is a pleasant 58-year-old male with a history of hepatitis C on Harvoni, CKD who was admitted to the hospital after he had a blood work at the [facility] which shows hypokalemia and worsening creatinine. Acute on chronic kidney disease Hyperkalemia Hyponatremia -Creatinine 2.5 --> 1.80 --> 1.90 ==> 2.2 ==> 2.9 ==> 3.7 --->4.26--> NOW 3.9 . Continue to improve with HD. His baseline creatinine is about 1.4-1.6. -Is being given Lasix 80 mg IV twice daily as well as Zaroxolyn and ProAmatine -Potassium has improved. -Discussed with Nephrology on 06/03/2018. . -transfer patient to the main hospital. -Continue Midodrine, albumin and Octreotide. -May need at least transient dialysis. REMAINS CONFUSED CHECK AMMONIA NOW AND TOMORROW Acute renal failure status post chemo dialysis catheter placed on Status post hemodialysis on 06-06 and repeat hemodialysis on Hypokalemia replace with potassium bath during hemodialysis WATCH ELECTROLYTES Patient with hepato renal syndrome With azotemia and Creatinine requiring hemodialysis Urine sodium low Patient with hepatorenal syndrome patient with HCV cirrhosis and on transplant list at [facility] Vas-Cath replaced 06/15 after patient accidentally pulled vas cath. . Monitor kidney function Paroxysmal Atrial fibrillation -Patient takes Atenolol at home. Continue Metoprolol 25mg BID. -[id number] score 0. Although Aspirin would be beneficial, given his liver cirrhosis, it maybe risky to start Aspirin. 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 Liver cirrhosis Hepatitis C COAGULOPATHY -Patient is currently on Harvoni. Abdominal ultrasound did not reveal enough ascites to drain. -Patient follows up with [facility] with regards to liver transplant. - Morphine for abdominal pain. -Ammonia level is increased will make sure he is on lactulose may have to add rifaximin and increase lactulose to 3 times daily-ammonia level is still increased will monitor Full code. INR is 1.7 due to liver disease. Will start patient on Heparin 5000 unit SQ Q12hrs for DVT prophylaxis. PT AND OT TO EVAL AND TREAT consult pulmonary OXYGEN NEEDED BIPAP AT NIGHT AND FOR NAPS HD PER NEPHROLOGY Pulled central line by accident 06.14 . Nephrology ff if needs more dialysis might need a new line Right arm possible cellulitis ?. Patient with swelling redness and pain of the right arm. Check CBC, CMP. Wound cultures if possible. Consult wound care. Start Bactrim. Add ketorolac for severe pain. Continue hemodialysis as patient will anasarca. Keep arm elevated, apply mild compression gauze. WILL NEED FOLLOW UP WITH [facility] AFTER DISCHARGE Code Status: FULL CODE Discussed Condition With: Patient, family at bedside his , nurse Discharge Planning: Plan to DC home with home health. Patient needs HD, so far not cleared by nephrology Anasarca improved with HD Cleared by GI to follow up as OP with GI at [facility] pending improvement and clearance by nephrology Pulled accidentally vas cath on 06/14. IR placed a new vas cath on 06/15 Continue HD per nephrology
--- NOTE | 2018-06-20 13:49 | P.DCO ---
- Physical Therapy Order: Evaluate and treat, Improve ambulation, Strength and gait training - Occupational Therapy Order: Evaluate and treat, Improve ADL, Gross motor coordination, Fine motor coordination - Home Health Nursing Order: Medical education, Signs/symptoms of disease process, Medication education-adverse effect, Nursing assessment with vital signs - Case Management Consult No - Certification I have seen patient Patrick Boogie on 06/20/18. My clinical findings support the need for the requested home health care services because: Limited mobility due to disease progression, Deconditioned with increased weakness, Limited ability to care for self, High risk of falls I certify that my clinical findings support that this patient is homebound because: Post-op weakness, Unsteady gait/balance, Unsafe to leave home unassisted, Unable to use public transportation
--- NOTE | 2018-06-20 14:35 | P.PNNP ---
Subjective Interval history: Patient is on dialysis acute renal failure right arm pain Physical Exam Vital signs: Vital Signs 06/19/18 16:00 06/19/18 18:02 06/19/18 20:00 Temperature 97.8 F 98.5 F Pulse Rate 64 63 Respiratory Rate 20 16 Blood Pressure 90/50 L 102/54 L Pulse Oximetry 94 L 94 L 99 06/19/18 23:43 06/20/18 03:23 06/20/18 08:00 Temperature 98.3 F 98.0 F 98.0 F Pulse Rate 64 62 62 Respiratory Rate 17 17 18 Blood Pressure 98/54 L 90/54 L 80/44 L Pulse Oximetry 99 98 95 06/20/18 12:00 Temperature 97.9 F Pulse Rate 72 Respiratory Rate 18 Blood Pressure 86/43 L Pulse Oximetry 97 Intake & Output 06/19/18 06/20/18 06/20/18 18:59 06:59 18:59 Intake Total 500.5 / 500.5 980.5 / 980.5 Output Total 3000 / 3000 200 / 200 Balance -2499.5 / -2499.5 780.5 / 780.5 Weight 97.7 kg Intake: IV 500.5 / 500.5 500.5 / 500.5 SandoSTATIN Inj 500 MCG In NS 500.5 / 500.5 500.5 / 500.5 Inj 500 ML @ 50 MCG/HR 50.05 mls/hr IV.CONT .Q10H SHALINI Rx#: [id number] Oral 480 / 480 Output: Urine 200 / 200 Peritoneal Amount 3000 / 3000 Other: # Voids 0 Date of Last Bowel Movement 06/16/18 06/16/18 06/18/18 # Bowel Movements 0 Narrative: GENERAL: Pleasant 58 yo male, with anasarca. Alert, Oriented x 3, appears in NAD. SKIN: Warm and dry. Anasarca . Right arm is more swollen and there is redness and tenderness to palpation. CARDIOVASCULAR: Regular rate and rhythm without murmurs, gallops, or rubs. S1- S2 no S3 or S4 RESPIRATORY: Breath sounds equal bilaterally. No accessory muscle use. GASTROINTESTINAL: Abdomen distended, nontender to palpation good bowel sounds throughout soft nontender MUSCULOSKELETAL: No cyanosis. LESS edema in upper and lower ext. +1 in upper extremity and lower extremity bilaterally. Right arm with worsening edema +2, redness and pain to palpation. Anasarca. BACK: Nontender without obvious deformity. No CVA tenderness. Insight and judgment is limited. Mood and behavior appropriate. - Urinary Catheter Management Indwelling Urethral Catheter Cath placed during this visit: yes Reason for continuing: Hourly intake/output Insertion date: 06/04/18 Insertion time: 18:15 Assessment and Plan - Assessment (1) Acute renal failure superimposed on stage 3 chronic kidney disease Code(s): N17.9 - Acute kidney failure, unspecified; N18.3 - Chronic kidney disease, stage 3 (moderate) Status: Acute (2) Hyponatremia Code(s): E87.1 - Hypo-osmolality and hyponatremia Status: Acute (3) Cirrhosis Code(s): K74.60 - Unspecified cirrhosis of liver Status: Acute - Plan Worsening azotemia: Creatinine was elevated and ended up on hemodialysis Urine sodium low hepatorenal syndrome patient with HCV cirrhosis and on transplant list at [facility] He remains on nasal cannula Hemodialysis next tomorrow Permacath requested Patient is an acute renal failure please avoid nonsteroidal anti-inflammatory drugs Watch for renal recovery.
[2018-06-20] MEDS: Nystatin 100,000 UNITS/GM Powder 15 GM Bottle TOPICAL SCH ×3 (15:48→23:14)
--- NOTE | 2018-06-20 17:22 | P.PN ---
Subjective Interval history: ALERT NAD Physical Exam Vital signs: Vital Signs 06/19/18 18:02 06/19/18 20:00 06/19/18 23:43 Temperature 98.5 F 98.3 F Pulse Rate 63 64 Respiratory Rate 16 17 Blood Pressure 102/54 L 98/54 L Pulse Oximetry 94 L 99 99 06/20/18 03:23 06/20/18 08:00 06/20/18 12:00 Temperature 98.0 F 98.0 F 97.9 F Pulse Rate 62 62 72 Respiratory Rate 17 18 18 Blood Pressure 90/54 L 80/44 L 86/43 L Pulse Oximetry 98 95 97 06/20/18 16:00 Temperature 97.2 F L Pulse Rate 66 Respiratory Rate 18 Blood Pressure 92/44 L Pulse Oximetry Intake & Output 06/19/18 06/20/18 06/20/18 18:59 06:59 18:59 Intake Total 500.5 / 500.5 980.5 / 980.5 500.5 / 500.5 Output Total 3000 / 3000 200 / 200 Balance -2499.5 / -2499.5 780.5 / 780.5 500.5 / 500.5 Weight 97.7 kg Intake: IV 500.5 / 500.5 500.5 / 500.5 500.5 / 500.5 SandoSTATIN Inj 500 MCG In NS 500.5 / 500.5 500.5 / 500.5 500.5 / 500.5 Inj 500 ML @ 50 MCG/HR 50.05 mls/hr IV.CONT .Q10H SHALINI Rx#: [id number] Oral 480 / 480 Output: Urine 200 / 200 Peritoneal Amount 3000 / 3000 Other: # Voids 0 Date of Last Bowel Movement 06/16/18 06/16/18 06/18/18 # Bowel Movements 0 Narrative: GENERAL: Pleasant 58 yo male, with anasarca. Alert, Oriented x 3, appears in NAD. SKIN: Warm and dry. Anasarca . Right arm is more swollen and there is redness and tenderness to palpation. CARDIOVASCULAR: Regular rate and rhythm without murmurs, gallops, or rubs. S1- S2 no S3 or S4 RESPIRATORY: Breath sounds equal bilaterally. No accessory muscle use. GASTROINTESTINAL: Abdomen distended, nontender to palpation good bowel sounds throughout soft nontender MUSCULOSKELETAL: No cyanosis. LESS edema in upper and lower ext. +1 in upper extremity and lower extremity bilaterally. Right arm with worsening edema +2, redness and pain to palpation. Anasarca. BACK: Nontender without obvious deformity. No CVA tenderness. Insight and judgment is limited. Mood and behavior appropriate. - Urinary Catheter Management Indwelling Urethral Catheter Cath placed during this visit: yes Reason for continuing: Hourly intake/output Insertion date: 06/04/18 Insertion time: 18:15 Results - Labs CBC & Chem 7: 06/20/18 04:18 06/20/18 04:18 Laboratory Results - last 24 hr 06/19/18 06/19/18 06/20/18 21:44 21:44 04:18 WBC 13.1 H RBC 3.35 L Hgb 9.3 L Hct 28.9 L MCV 86.2 MCH 27.9 MCHC 32.4 RDW 20.5 H Plt Count 140 L D MPV 7.6 Neut % (Auto) 84.6 H Lymph % (Auto) 7.[address] [place] % (Auto) 7.1 Eos % (Auto) 0.8 Baso % (Auto) 0.4 Neut # (Auto) 11.1 H Lymph # (Auto) 0.[address] [place] # (Auto) 0.9 Eos # (Auto) 0.1 Baso # (Auto) 0.0 WBC Differential . Differential Comment Auto diff final Sodium 134 L 134 L Potassium 3.8 3.8 Chloride 97 L 96 L Carbon Dioxide 26.2 26.3 Anion Gap 11 12 BUN 25 H 27 H Creatinine 4.11 H 4.20 H Estimated GFR 15 L 15 L Random Glucose 138 H 113 H Calcium 8.7 8.6 Total Bilirubin 2.3 H AST 25 ALT 16 Alkaline Phosphatase 53 Total Protein 7.2 Albumin 4.3 06/20/18 04:18 WBC 12.6 H RBC 3.14 L Hgb 9.0 L Hct 26.7 L MCV 84.8 MCH 28.6 MCHC 33.8 RDW 20.7 H Plt Count 126 L MPV 8.0 Neut % (Auto) 79.2 H Lymph % (Auto) 9.2 [place] % (Auto) 8.7 H Eos % (Auto) 2.6 Baso % (Auto) 0.3 Neut # (Auto) 10.0 H Lymph # (Auto) 1.2 [place] # (Auto) 1.1 H Eos # (Auto) 0.3 Baso # (Auto) 0.0 WBC Differential . Differential Comment Auto diff final Sodium Potassium Chloride Carbon Dioxide Anion Gap BUN Creatinine Estimated GFR Random Glucose Calcium Total Bilirubin AST ALT Alkaline Phosphatase Total Protein Albumin - Procedures EXAM DATE: 06/06/2018 4:32 PM EDT AGE/SEX: 58 years / Male INDICATIONS: Patient with history of chronic kidney disease in need of non tunneled dialysis catheter CLINICAL DATA: This is the patient's initial encounter. Patient reports that signs and symptoms have been present for 1 week and indicates a pain score of 8/ 10. MEDICAL/SURGICAL HISTORY: Hepatitis C. Liver cirrhosis, CKD, CAD, A-Fib, HLD, HTN, COPD, [place], CHF, Raynauds syndrome Cholecystectomy. Aortic valve replacement, Knee surgery, CABG, Lung surgery, Back surgery COMPARISON: No prior exams available for comparison. FLUORO TIME (min): 0.1 IMAGE SERIES: 1 ACCESS SITE: Right internal jugular vein DEVICE(S): 14 [place]ian double lumen X20CM Schon catheter . . PROCEDURE : 1. Ultrasound guided venipuncture. 2. Fluoroscopic guidance. 3. Central line placement. The risks, benefits and alternatives to the procedure were explained and verbal and written consent was obtained. The site was prepped in sterile fashion. Full sterile technique was used, including cap, mask, sterile gloves and gown and a large sterile sheet. Hand hygiene and 2% chlorhexidine prep was utilized per protocol for cutaneous antisepsis with appropriate dry time for site. Sterile gel and sterile probe cover were utilized for ultrasound guidance. The skin and subcutaneous tissues were infiltrated with local anesthetic solution. A suitable site above the vein was selected with ultrasound and fluoroscopic guidance. A small incision was made. The vein was accessed under direct ultrasound visualization using the micropuncture technique. The micropuncture set was exchanged for a 0.035 wire. The tract was dilated. The catheter was advanced into position under direct fluoroscopic visualization, and was advanced with the tip at the junction of the superior vena cava and rt atrium. The catheter was fixed in place with suture and a sterile dressing was applied. The patient tolerated the procedure well and there were no complications. CONCLUSION: 1. Uncomplicated line placement as above. Electronically signed by: Joe Garcia MD 06/07/2018 9:37 AM EDT Undergoing hemodialysis so far on 95 and 96 AND 9-8 Assessment and Plan - Plan RESPIRARY FAILYRE RENAL FAILURE CRISTIANE PLAN O2 NEEDED PAP THERAPY PULM TOILET INCREASE ACTIVITY
[2018-06-20 23:13] LABS: Hemoglobin 9.9 gm/dL (13.0-17.0)
[2018-06-21] MEDS: Octreotide Inj 500 MCG in Sodium Chlor 0.9% Inj 500 ML IV.CONT SCH ×3 (01:35→10:28)
[2018-06-21 05:22] LABS: Calcium 8.5 mg/dL (8.5-10.1); Carbon Dioxide 29.1 meq/L (21.0-32.0); Potassium 3.9 meq/L (3.5-5.1)
[2018-06-21] MEDS: Heparin Central Flush 100 UNIT/ML 5 ML Vial IV.FLUSH SCH (08:11)
[2018-06-21] MEDS: Torsemide 20 MG Tablet PO SCH ×2 (08:11→21:06)
[2018-06-21] MEDS: Heparin - SQ 10,000 UNITS/ML Vial SQ SCH (08:11)
[2018-06-21] MEDS: Metoprolol Tartrate 50 MG Tablet PO SCH ×2 (08:11→21:07)
[2018-06-21] MEDS: Nystatin 100,000 UNITS/GM Powder 15 GM Bottle TOPICAL SCH ×4 (08:12→21:08)
[2018-06-21] MEDS: HARVONI PO SCH (08:12)
[2018-06-21] MEDS ORDERED: fentaNYL Citrate Inj 250 MCG/5 ML Ampul ONE (08:46)
[2018-06-21] MEDS ORDERED: *Heparin 10,000 UNITS/10 ML Vial Periprocedural ONLY ONE (09:09)
[2018-06-21] MEDS ORDERED: Lidocaine 1%/Epinephrine 1:100,000 Inj 20 ML Vial ONE (09:10)
[2018-06-21] MEDS ORDERED: Thrombin Topical Soln 5,000 UNIT Vial TOPICAL ONE (09:36)
--- NOTE | 2018-06-21 10:00 | P.PNWCN ---
Wound Care Nurse Consult Description: Wound consult ordered by for wound management. Communicated with: Jeannette DAI, Recommendation: 1. Cleanse bilateral upper extremities with warm antibacterial soap and water rinse and leave open to air. 2. If extremities begin weeping place UltraSorb moisture wicking underpad under extremities. Additional information: Patient was seen today by senior medical writer for wound management of right upper extremity.patient alert and oriented x4 resting in bed.Patient noted to have +2 pitting edema to upper bilateral extremities.Patient currently has no open "wounds" patient has had scant serous exudate in last 24 hours. Please keep extremities clean and dry.
[2018-06-21] MEDS ORDERED: Heparin Central Flush 100 UNIT/ML 5 ML Vial IV.FLUSH PRN (10:05)
--- NOTE | 2018-06-21 10:13 | P.RAD ---
Post Procedure Progress Note - Pre Procedure Diagnosis (1) Acute renal failure superimposed on stage 3 chronic kidney disease - Post Procedure Diagnosis (1) Acute renal failure superimposed on stage 3 chronic kidney disease - Procedure Information Procedure Date: 06/21/18 Supervising Radiologist: Braxton Benitez MD Estimated blood loss (mL): 10 Anesthesia: Local, Analgesia, Conscious Sedation - Plan of Activity Patient to Unit: ROPU Patient Condition: Good See PACS Report for procedural detail/treatment. [facility] Radiology Procedures right Internal Jugular Hemodialysis Catheter Tunneled Conversion Device: dual lumen Swedish: 15 PICC Line Length (cm): 23 - Additional Detail Findings: Patient appears to be extremely volume overloaded. Fluid freely oozes from skin when incised. Very high central venous pressures with some difficulty controlling bleeding at neck dermatotome. Hemostasis with 5000u sub-Q heparin , dermabound adhesive and direct manual pressure for 15 minutes while pt in reverse Trendelenburg. Called dialysis to request urgent dialysis but was told by nursing staff that the schedule was too busy and patient would have to wait. Will discuss with patients Pet Training Instructor, Dr. Saul.
[2018-06-21] MEDS: rifAXIMin 550 MG Tablet PO SCH ×2 (10:28→22:36)
[2018-06-21] MEDS: Albumin Human 25% Inj 100 ML IV.SIG PRN ×2 (10:59→11:01)
[2018-06-21] MEDS: Heparin 10,000 UNITS/10 ML Vial (for IV use) OTHER PRN (11:00)
--- NOTE | 2018-06-21 14:35 | P.PNIM ---
Subjective Interval history: Patient just returned from vas cath placement and dialysis. Patient noted to have large amount of hematuria in jordan, denies any trauma. Denies any pain. Right arm swelling and redness improving per patient and nurse. Physical Exam Vital signs: Vital Signs 06/20/18 16:00 06/20/18 16:16 06/20/18 17:35 Temperature 97.2 F L Pulse Rate 66 Respiratory Rate 18 15 Blood Pressure 92/44 L Pulse Oximetry 97 06/20/18 19:15 06/20/18 23:20 06/21/18 04:00 Temperature 97.4 F L 98.2 F 98.2 F Pulse Rate 70 70 70 Respiratory Rate 18 19 18 Blood Pressure 112/77 91/45 L 107/51 L Pulse Oximetry 98 99 98 06/21/18 08:06 06/21/18 08:07 Temperature 98.3 F Pulse Rate 76 Respiratory Rate 20 Blood Pressure 99/64 L Pulse Oximetry 97 97 Intake & Output 06/20/18 06/21/18 06/21/18 18:59 06:59 18:59 Intake Total 500.5 / 500.5 1860.5 / 1860.5 200 / 200 Output Total 100 / 100 5000 / 5000 Balance 500.5 / 500.5 1760.5 / 1760.5 -4800 / -4800 Weight 97.7 kg Intake: IV 500.5 / 500.5 1500.5 / 1500.5 200 / 200 SandoSTATIN Inj 500 MCG In NS 500.5 / 500.5 500.5 / 500.5 Inj 500 ML @ 50 MCG/HR 50.05 mls/hr IV.CONT .Q10H SHALINI Rx#: [id number] Flexbumin 25% Inj 100 ML @ 60 200 / 200 mls/hr IV.SIG WITH DIALYSIS PRN Rx#:[id number] NS Inj 1,000 ML @ As Directed 1000 / 1000 OTHER .Q0M PRN Rx#:[id number] Oral 360 / 360 Output: Hemodialysis Amount 5000 / 5000 Urine Amount (Catheter) 100 / 100 Indwelling Urethral Catheter 100 / 100 Other: Date of Last Bowel Movement 06/18/18 06/20/18 06/20/18 # Bowel Movements 0 Narrative: GENERAL: Pleasant 58 yo male, with anasarca. Alert, Oriented x 3, appears in NAD. SKIN: Warm and dry. Anasarca . Right arm is more swollen and there is redness and tenderness to palpation. CARDIOVASCULAR: Regular rate and rhythm without murmurs, gallops, or rubs. S1- S2 no S3 or S4 RESPIRATORY: Breath sounds equal bilaterally. No accessory muscle use. GASTROINTESTINAL: Abdomen distended, nontender to palpation good bowel sounds throughout soft nontender MUSCULOSKELETAL: No cyanosis. LESS edema in upper and lower ext. +1 in upper extremity and lower extremity bilaterally. Right arm with edema +2, redness and pain to palpation. Anasarca. BACK: Nontender without obvious deformity. No CVA tenderness. - Urinary Catheter Management Indwelling Urethral Catheter Cath placed during this visit: yes Reason for continuing: Gross Hematuria Insertion date: 06/04/18 Insertion time: 18:15 Results - Labs CBC & Chem 7: 06/20/18 22:44 06/21/18 03:35 Laboratory Results - last 24 hr 06/20/18 06/21/18 22:44 03:35 Hgb 9.9 L Hct 29.0 L Sodium 133 L Potassium 3.9 Chloride 97 L Carbon Dioxide 29.1 Anion Gap 7 BUN 34 H Creatinine 4.96 H Estimated GFR 12 L Random Glucose 92 Calcium 8.5 - Procedures EXAM DATE: 06/06/2018 4:32 PM EDT AGE/SEX: 58 years / Male INDICATIONS: Patient with history of chronic kidney disease in need of non tunneled dialysis catheter CLINICAL DATA: This is the patient's initial encounter. Patient reports that signs and symptoms have been present for 1 week and indicates a pain score of 8/ 10. MEDICAL/SURGICAL HISTORY: Hepatitis C. Liver cirrhosis, CKD, CAD, A-Fib, HLD, HTN, COPD, [place], CHF, Raynauds syndrome Cholecystectomy. Aortic valve replacement, Knee surgery, CABG, Lung surgery, Back surgery COMPARISON: No prior exams available for comparison. FLUORO TIME (min): 0.1 IMAGE SERIES: 1 ACCESS SITE: Right internal jugular vein DEVICE(S): 14 [place] double lumen X20CM Schon catheter . . PROCEDURE : 1. Ultrasound guided venipuncture. 2. Fluoroscopic guidance. 3. Central line placement. The risks, benefits and alternatives to the procedure were explained and verbal and written consent was obtained. The site was prepped in sterile fashion. Full sterile technique was used, including cap, mask, sterile gloves and gown and a large sterile sheet. Hand hygiene and 2% chlorhexidine prep was utilized per protocol for cutaneous antisepsis with appropriate dry time for site. Sterile gel and sterile probe cover were utilized for ultrasound guidance. The skin and subcutaneous tissues were infiltrated with local anesthetic solution. A suitable site above the vein was selected with ultrasound and fluoroscopic guidance. A small incision was made. The vein was accessed under direct ultrasound visualization using the micropuncture technique. The micropuncture set was exchanged for a 0.035 wire. The tract was dilated. The catheter was advanced into position under direct fluoroscopic visualization, and was advanced with the tip at the junction of the superior vena cava and rt atrium. The catheter was fixed in place with suture and a sterile dressing was applied. The patient tolerated the procedure well and there were no complications. CONCLUSION: 1. Uncomplicated line placement as above. Electronically signed by: Joe Garcia MD 06/07/2018 9:37 AM EDT Undergoing hemodialysis so far on and 96 AND 06-09 Assessment and Plan - Plan Mr. Boogie is a pleasant 58-year-old male with a history of hepatitis C on Harvoni, CKD who was admitted to the hospital after he had a blood work at the [place] which shows hypokalemia and worsening creatinine. Acute on chronic kidney disease, Patient with hepato renal syndrome, With azotemia and Creatinine requiring hemodialysis Hyperkalemia Hyponatremia Urine sodium low patient with HCV cirrhosis and on transplant list at [facility] vas cath on 06/21 -Creatinine 4.96. Continue to improve with HD. His baseline creatinine is about 1.4-1.6. -Potassium has improved. -Nephrology following -Continue Midodrine, albumin and d/c Octreotide. -avoid nonsteroidal anti-inflammatory drugs -WATCH ELECTROLYTES -PT AND OT TO EVAL AND TREAT Gross Hematuria noted 06/21 Bright red blood in jordan, no trauma -Kidney us ordered -Hold heparin for today -Consult urology for evaluation Paroxysmal Atrial fibrillation -Patient takes Atenolol at home. Continue Metoprolol 25mg BID. -[id number] score 0. Although Aspirin would be beneficial, given his liver cirrhosis, it maybe risky to start Aspirin. 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 Liver cirrhosis Hepatitis C COAGULOPATHY -Patient is currently on Harvoni. Abdominal ultrasound did not reveal enough ascites to drain. -[facility] with [facility]. -Morphine for abdominal pain. -Cont lactulose may have to add rifaximin and increase lactulose to 3 times daily-ammonia level stable Full code. INR is 1.7 due to liver disease. Will start patient on Heparin 5000 unit SQ Q12hrs for DVT prophylaxis. Respiratory failure -pulmonary following -o2 prn -bipap hs Right arm possible cellulitis, Patient with swelling redness and pain of the right arm. -Wound care recommend clean soap and water, leave open, use UltraSorb if weeping -Cont Bactrim. -Keep arm elevated WILL NEED FOLLOW UP WITH [place] [facility] AFTER DISCHARGE Discussed Condition With: patient and rn
--- NOTE | 2018-06-21 14:41 | P.PNNP ---
Subjective Interval history: Patient had permacath placed and seen during hemodialysis Physical Exam Vital signs: Vital Signs 06/20/18 16:00 06/20/18 16:16 06/20/18 17:35 Temperature 97.2 F L Pulse Rate 66 Respiratory Rate 18 15 Blood Pressure 92/44 L Pulse Oximetry 97 06/20/18 19:15 06/20/18 23:20 06/21/18 04:00 Temperature 97.4 F L 98.2 F 98.2 F Pulse Rate 70 70 70 Respiratory Rate 18 19 18 Blood Pressure 112/77 91/45 L 107/51 L Pulse Oximetry 98 99 98 06/21/18 08:06 06/21/18 08:07 Temperature 98.3 F Pulse Rate 76 Respiratory Rate 20 Blood Pressure 99/64 L Pulse Oximetry 97 97 Intake & Output 06/20/18 06/21/18 06/21/18 18:59 06:59 18:59 Intake Total 500.5 / 500.5 1860.5 / 1860.5 200 / 200 Output Total 100 / 100 5000 / 5000 Balance 500.5 / 500.5 1760.5 / 1760.5 -4800 / -4800 Weight 97.7 kg Intake: IV 500.5 / 500.5 1500.5 / 1500.5 200 / 200 SandoSTATIN Inj 500 MCG In NS 500.5 / 500.5 500.5 / 500.5 Inj 500 ML @ 50 MCG/HR 50.05 mls/hr IV.CONT .Q10H SHALINI Rx#: [id number] Flexbumin 25% Inj 100 ML @ 60 200 / 200 mls/hr IV.SIG WITH DIALYSIS PRN Rx#:[id number] NS Inj 1,000 ML @ As Directed 1000 / 1000 OTHER .Q0M PRN Rx#:[id number] Oral 360 / 360 Output: Hemodialysis Amount 5000 / 5000 Urine Amount (Catheter) 100 / 100 Indwelling Urethral Catheter 100 / 100 Other: Date of Last Bowel Movement 06/18/18 06/20/18 06/20/18 # Bowel Movements 0 Narrative: GENERAL: Pleasant 58 yo male, with anasarca. Alert, Oriented x 3, appears in NAD. SKIN: Warm and dry. Anasarca . Right arm is more swollen and there is redness and tenderness to palpation. CARDIOVASCULAR: Regular rate and rhythm without murmurs, gallops, or rubs. S1- S2 no S3 or S4 RESPIRATORY: Breath sounds equal bilaterally. No accessory muscle use. GASTROINTESTINAL: Abdomen distended, nontender to palpation good bowel sounds throughout soft nontender MUSCULOSKELETAL: No cyanosis. LESS edema in upper and lower ext. +1 in upper extremity and lower extremity bilaterally. Right arm with worsening edema +2, redness and pain to palpation. Anasarca. BACK: Nontender without obvious deformity. No CVA tenderness. Insight and judgment is limited. Mood and behavior appropriate. - Urinary Catheter Management Indwelling Urethral Catheter Cath placed during this visit: yes Reason for continuing: Gross Hematuria Insertion date: 06/04/18 Insertion time: 18:15 Assessment and Plan - Assessment (1) Acute renal failure superimposed on stage 3 chronic kidney disease Code(s): N17.9 - Acute kidney failure, unspecified; N18.3 - Chronic kidney disease, stage 3 (moderate) Status: Acute (2) Hyponatremia Code(s): E87.1 - Hypo-osmolality and hyponatremia Status: Acute (3) Cirrhosis Code(s): K74.60 - Unspecified cirrhosis of liver Status: Acute - Plan Worsening azotemia: Creatinine was elevated and ended up on hemodialysis Urine sodium low hepatorenal syndrome patient with HCV cirrhosis and on transplant list at [place] He remains on nasal cannula Hemodialysis Monday and Monday Permacath placed high venous pressures during blood via permacath seen during hemodialysis tolerating ultrafiltration of 5 L Patient is an acute renal failure please avoid nonsteroidal anti-inflammatory drugs Watch for renal recovery.
--- NOTE | 2018-06-21 15:57 | US ---
EXAM DATE: 06/21/2018 3:48 PM EDT AGE/SEX: 58 years / Male INDICATIONS: Hematuria. CLINICAL DATA: This is the patient's initial encounter. Patient reports that signs and symptoms have been present for 4 - 6 days and indicates a pain score of 2/10. MEDICAL/SURGICAL HISTORY: Chronic obstructive pulmonary disease. Hepatitis C. Atrial fibrillat ion. Coronary artery disease. Chest pain. Congestive heart failure. Cirrhosis. Endocarditis. Hyperlip idemia. Myocardial infarct. Cholecystectomy. CABG. Aortic valve replacement. Knee surgery. Lung garcia rgery. Back surgery. COMPARISON: [facility] [place], KIDNEY/RENAL/BLADDER, 06/04/2018. . MEASUREMENTS: Right Kidney:__11.5 x 5.4 x 5.1 cm Left Kidney:__11.3 x 5.1 x 5.4 cm FINDINGS: Right Kidney: Normal echotexture and cortical thickness. No mass or hydronephrosis. Left Kidney: Normal echotexture and cortical thickness. No mass or hydronephrosis. Bladder: Ureña catheter is present. Bladder decompressed. Other: Some free fluid is noted within the pelvis. CONCLUSION: 1. Unremarkable kidneys and decompressed urinary bladder. 2. Some free fluid within the pelvis. Electronically signed by: Kenny Calderón MD 06/21/2018 3:56 PM EDT
[2018-06-21 20:11] LABS: Hematocrit 29.3 % (39.0-51.0); Hemoglobin 9.5 gm/dL (13.0-17.0)
[2018-06-22 07:05] LABS: Calcium 8.8 mg/dL (8.5-10.1); Carbon Dioxide 28.7 meq/L (21.0-32.0); Potassium 4.2 meq/L (3.5-5.1)
[2018-06-22] MEDS: Torsemide 20 MG Tablet PO SCH ×2 (08:09→21:26)
[2018-06-22] MEDS: Metoprolol Tartrate 50 MG Tablet PO SCH ×2 (08:09→21:26)
[2018-06-22] MEDS: HARVONI PO SCH (08:10)
[2018-06-22] MEDS: Heparin Central Flush 100 UNIT/ML 5 ML Vial IV.FLUSH SCH (08:11)
[2018-06-22] MEDS: Nystatin 100,000 UNITS/GM Powder 15 GM Bottle TOPICAL SCH ×5 (08:11→21:26)
--- NOTE | 2018-06-22 08:56 | P.PN ---
Subjective Interval history: Patient now with only right arm swelling , redness and extreme pain. Consult hand surg for eval for poss compartment sdr , discussed with Dr Osmel del rosarioal patient He has no fever r chills' No n/v/d/c. Denies chest pain Edema has improved except in his right arm Physical Exam Vital signs: Vital Signs 06/21/18 19:44 06/21/18 20:00 06/22/18 00:00 Temperature 97.9 F 97.6 F Pulse Rate 70 67 Respiratory Rate 16 16 Blood Pressure 102/49 L 89/47 L Pulse Oximetry 94 L 100 98 06/22/18 04:00 06/22/18 08:00 06/22/18 08:23 Temperature 97.7 F 98.8 F Pulse Rate 74 70 Respiratory Rate 17 16 Blood Pressure 94/56 L 91/52 L Pulse Oximetry 98 94 L 94 L Intake & Output 06/21/18 06/22/18 06/22/18 18:59 06:59 18:59 Intake Total 700.5 / 700.5 Output Total 5000 / 5000 Balance -4299.5 / -4299.5 - / Weight 101.8 kg Intake: IV 700.5 / 700.5 SandoSTATIN Inj 500 MCG In NS 500.5 / 500.5 Inj 500 ML @ 50 MCG/HR 50.05 mls/hr IV.CONT .Q10H SHALINI Rx#: [id number] Flexbumin 25% Inj 100 ML @ 60 200 / 200 mls/hr IV.SIG WITH DIALYSIS PRN Rx#:[id number] Output: Hemodialysis Amount 5000 / 5000 Urine Amount (Catheter) Indwelling Urethral Catheter Other: Date of Last Bowel Movement 06/20/18 Narrative: GENERAL: Pleasant 58 yo male, with anasarca. Alert, Oriented x 3, appears in NAD. SKIN: Warm and dry. Anasarca improved . However right arm is more swollen and there is redness and more tenderness to palpation. CARDIOVASCULAR: Regular rate and rhythm without murmurs, gallops, or rubs. S1- S2 no S3 or S4 RESPIRATORY: Breath sounds equal bilaterally. No accessory muscle use. GASTROINTESTINAL: Abdomen distended, nontender to palpation good bowel sounds throughout soft nontender MUSCULOSKELETAL: No cyanosis. LESS edema in upper and lower ext. +1 in upper extremity and lower extremity bilaterally. Right arm with edema +2, redness and pain to palpation. Anasarca. BACK: Nontender without obvious deformity. No CVA tenderness. - Urinary Catheter Management Indwelling Urethral Catheter Cath placed during this visit: yes Reason for continuing: Gross Hematuria Insertion date: 06/04/18 Insertion time: 18:15 Results - Labs CBC & Chem 7: 06/21/18 19:23 06/22/18 05:19 Laboratory Results - last 24 hr 06/21/18 06/22/18 19:23 05:19 Hgb 9.5 L Hct 29.3 L Sodium 134 L Potassium 4.2 Chloride 97 L Carbon Dioxide 28.7 Anion Gap 8 BUN 29 H Creatinine 4.42 H Estimated GFR 14 L Random Glucose 88 Calcium 8.8 - Imaging Impressions Abdomen/Bladder Ultrasound 06/21/18 00:00 CONCLUSION: 1. Unremarkable kidneys and decompressed urinary bladder. 2. Some free fluid within the pelvis. - Procedures EXAM DATE: 06/06/2018 4:32 PM EDT AGE/SEX: 58 years / Male INDICATIONS: Patient with history of chronic kidney disease in need of non tunneled dialysis catheter CLINICAL DATA: This is the patient's initial encounter. Patient reports that signs and symptoms have been present for 1 week and indicates a pain score of 8/ 10. MEDICAL/SURGICAL HISTORY: Hepatitis C. Liver cirrhosis, CKD, CAD, A-Fib, HLD, HTN, COPD, [place], CHF, Raynauds syndrome Cholecystectomy. Aortic valve replacement, Knee surgery, CABG, Lung surgery, Back surgery COMPARISON: No prior exams available for comparison. FLUORO TIME (min): 0.1 IMAGE SERIES: 1 ACCESS SITE: Right internal jugular vein DEVICE(S): 14 [place] double lumen X20CM Schon catheter . . PROCEDURE : 1. Ultrasound guided venipuncture. 2. Fluoroscopic guidance. 3. Central line placement. The risks, benefits and alternatives to the procedure were explained and verbal and written consent was obtained. The site was prepped in sterile fashion. Full sterile technique was used, including cap, mask, sterile gloves and gown and a large sterile sheet. Hand hygiene and 2% chlorhexidine prep was utilized per protocol for cutaneous antisepsis with appropriate dry time for site. Sterile gel and sterile probe cover were utilized for ultrasound guidance. The skin and subcutaneous tissues were infiltrated with local anesthetic solution. A suitable site above the vein was selected with ultrasound and fluoroscopic guidance. A small incision was made. The vein was accessed under direct ultrasound visualization using the micropuncture technique. The micropuncture set was exchanged for a 0.035 wire. The tract was dilated. The catheter was advanced into position under direct fluoroscopic visualization, and was advanced with the tip at the junction of the superior vena cava and rt atrium. The catheter was fixed in place with suture and a sterile dressing was applied. The patient tolerated the procedure well and there were no complications. CONCLUSION: 1. Uncomplicated line placement as above. Electronically signed by: Joe Garcia MD 06/07/2018 9:37 AM EDT Undergoing hemodialysis so far on and AND 06-09 Assessment and Plan - Plan Mr. Boogie is a pleasant 58-year-old male with a history of hepatitis C on Harvoni, CKD who was admitted to the hospital after he had a blood work at the [place] which shows hypokalemia and worsening creatinine. Acute on chronic kidney disease Hyperkalemia Hyponatremia -Creatinine 2.5 --> 1.80 --> 1.90 ==> 2.2 ==> 2.9 ==> 3.7 --->4.26--> NOW 3.9 . Continue to improve with HD. His baseline creatinine is about 1.4-1.6. -Is being given Lasix 80 mg IV twice daily as well as Zaroxolyn and ProAmatine -Potassium has improved. -Discussed with Nephrology on 06/03/2018. . -transfer patient to the main hospital. -Continue Midodrine, albumin and Octreotide. -May need at least transient dialysis. REMAINS CONFUSED CHECK AMMONIA NOW AND TOMORROW Acute renal failure status post chemo dialysis catheter placed on Status post hemodialysis on 06-06 and repeat hemodialysis on Hypokalemia replace with potassium bath during hemodialysis WATCH ELECTROLYTES Patient with hepato renal syndrome With azotemia and Creatinine requiring hemodialysis Urine sodium low Patient with hepatorenal syndrome patient with HCV cirrhosis and on transplant list at [place] Vas-Cath replaced 06/15 after patient accidentally pulled vas cath. . Monitor kidney function Paroxysmal Atrial fibrillation -Patient takes Atenolol at home. Continue Metoprolol 25mg BID. -[id number] score 0. Although Aspirin would be beneficial, given his liver cirrhosis, it maybe risky to start Aspirin. 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 Liver cirrhosis Hepatitis C COAGULOPATHY -Patient is currently on Harvoni. Abdominal ultrasound did not reveal enough ascites to drain. -Patient follows up with [place] with regards to liver transplant. - Morphine for abdominal pain. -Ammonia level is increased will make sure he is on lactulose may have to add rifaximin and increase lactulose to 3 times daily-ammonia level is still increased will monitor Full code. INR is 1.7 due to liver disease. Will start patient on Heparin 5000 unit SQ Q12hrs for DVT prophylaxis. PT AND OT TO EVAL AND TREAT consult pulmonary OXYGEN NEEDED BIPAP AT NIGHT AND FOR NAPS HD PER NEPHROLOGY Pulled central line by accident 06.14 . Nephrology ff if needs more dialysis might need a new line Right arm possible cellulitis ?. Patient with swelling redness and pain of the right arm. Check CBC, CMP. Wound cultures if possible. Consult wound care. Wound care recommend clean soap and water, leave open, use UltraSorb if weeping Cont Bactrim. Continue hemodialysis as patient will anasarca. Keep arm elevated Patient however with more pain erythema and swelling of the right arm not improving , and anasarca otherwise is improving with HD. Check CPK, will consult hand surgeon Consult hand surg for eval for poss compartment sdr , discussed with Dr Osmel Velazquez will eval patient. CT right elbow ordered WILL NEED FOLLOW UP WITH [place] [facility] AFTER DISCHARGE Code Status: FULL CODE Discussed Condition With: Patient, family at bedside his , nurse Discharge Planning: Plan to DC home with home health. Patient needs HD, so far not cleared by nephrology Anasarca improved with HD Cleared by GI to follow up as OP with GI at [facility] pending improvement and clearance by nephrology Pulled accidentally vas cath on 06/14. IR placed a new vas cath on 06/15 Continue HD per nephrology Right arm swelling, erythema and more pain, check CPK. Consult hand surg for evaluation poss compartment sdr. Plan for CT right arm
--- NOTE | 2018-06-22 10:00 | P.PNNP ---
Subjective Interval history: Patient feels better Physical Exam Vital signs: Vital Signs 06/21/18 19:44 06/21/18 20:00 06/22/18 00:00 Temperature 97.9 F 97.6 F Pulse Rate 70 67 Respiratory Rate 16 16 Blood Pressure 102/49 L 89/47 L Pulse Oximetry 94 L 100 98 06/22/18 04:00 06/22/18 08:00 06/22/18 08:23 Temperature 97.7 F 98.8 F Pulse Rate 74 70 Respiratory Rate 17 16 Blood Pressure 94/56 L 91/52 L Pulse Oximetry 98 94 L 94 L Intake & Output 06/21/18 06/22/18 06/22/18 18:59 06:59 18:59 Intake Total 700.5 / 700.5 Output Total 5000 / 5000 Balance -4299.5 / -4299.5 - Weight 101.8 kg Intake: IV 700.5 / 700.5 SandoSTATIN Inj 500 MCG In NS 500.5 / 500.5 Inj 500 ML @ 50 MCG/HR 50.05 mls/hr IV.CONT .Q10H SHALINI Rx#: [id number] Flexbumin 25% Inj 100 ML @ 60 200 / 200 mls/hr IV.SIG WITH DIALYSIS PRN Rx#:[id number] Output: Hemodialysis Amount 5000 / 5000 Urine Amount (Catheter) Indwelling Urethral Catheter Other: Date of Last Bowel Movement 06/20/18 Narrative: GENERAL: Pleasant 58 yo male, with anasarca. Alert, Oriented x 3, appears in NAD. SKIN: Warm and dry. Anasarca . Right arm is more swollen and there is redness and tenderness to palpation. CARDIOVASCULAR: Regular rate and rhythm without murmurs, gallops, or rubs. S1- S2 no S3 or S4 RESPIRATORY: Breath sounds equal bilaterally. No accessory muscle use. GASTROINTESTINAL: Abdomen distended, nontender to palpation good bowel sounds throughout soft nontender MUSCULOSKELETAL: No cyanosis. LESS edema in upper and lower ext. +1 in upper extremity and lower extremity bilaterally. Right arm with edema +2, redness and pain to palpation. Anasarca. BACK: Nontender without obvious deformity. No CVA tenderness. - Urinary Catheter Management Indwelling Urethral Catheter Cath placed during this visit: yes Reason for continuing: Gross Hematuria Insertion date: 06/04/18 Insertion time: 18:15 Assessment and Plan - Assessment (1) Acute renal failure superimposed on stage 3 chronic kidney disease Code(s): N17.9 - Acute kidney failure, unspecified; N18.3 - Chronic kidney disease, stage 3 (moderate) Status: Acute (2) Hyponatremia Code(s): E87.1 - Hypo-osmolality and hyponatremia Status: Acute (3) Cirrhosis Code(s): K74.60 - Unspecified cirrhosis of liver Status: Acute - Plan Worsening azotemia: Creatinine was elevated and ended up on hemodialysis Urine sodium low hepatorenal syndrome patient with HCV cirrhosis and on transplant list at [place] He remains on nasal cannula Hemodialysis Monday and Monday Permacath placed Discussed with his significant other and notified them about the progress, there is some recovery of liver functions, transplant referral has to be made by liver specialist This can be done as an outpatient Hemodialysis to continue as outpatient once final discharge set up is complete
[2018-06-22] MEDS: rifAXIMin 550 MG Tablet PO SCH ×2 (10:51→22:35)
--- NOTE | 2018-06-22 12:43 | P.PNPL ---
Subjective Interval history: Patient is lying in bed in NAD Physical Exam Vital signs: Vital Signs 06/21/18 19:44 06/21/18 20:00 06/22/18 00:00 Temperature 97.9 F 97.6 F Pulse Rate 70 67 Respiratory Rate 16 16 Blood Pressure 102/49 L 89/47 L Pulse Oximetry 94 L 100 98 06/22/18 04:00 06/22/18 08:00 06/22/18 08:23 Temperature 97.7 F 98.8 F Pulse Rate 74 70 Respiratory Rate 17 16 Blood Pressure 94/56 L 91/52 L Pulse Oximetry 98 94 L 94 L 06/22/18 11:19 Temperature 98.2 F Pulse Rate 69 Respiratory Rate 18 Blood Pressure 98/70 L Pulse Oximetry 92 L Intake & Output 06/21/18 06/22/18 06/22/18 18:59 06:59 18:59 Intake Total 700.5 / 700.5 Output Total 5000 / 5000 Balance -4299.5 / -4299.5 - / 25 Weight 101.8 kg Intake: IV 700.5 / 700.5 SandoSTATIN Inj 500 MCG In NS 500.5 / 500.5 Inj 500 ML @ 50 MCG/HR 50.05 mls/hr IV.CONT .Q10H SHALINI Rx#: [id number] Flexbumin 25% Inj 100 ML @ 60 200 / 200 mls/hr IV.SIG WITH DIALYSIS PRN Rx#:[id number] Output: Hemodialysis Amount 5000 / 5000 Urine Amount (Catheter) Indwelling Urethral Catheter Other: Date of Last Bowel Movement 06/20/18 06/21/18 - Constitutional no acute distress - Routine HEENT Exam Head: Present: normocephalic, atraumatic Eye: Present: EOMI, PERRL, conjunctivae pink ENT: Present: mucous membranes moist - Routine Neck Exam Present: supple, full ROM, trachea midline - Routine Respiratory Exam Present: CTA bilaterally - Routine Cardiovascular Exam Present: RRR, S1, S2 - Routine Abdominal Exam Present: soft, normoactive bowel sounds - Routine Extremities Exam Present: edema Comments: Edema RUE - Routine Skin Exam Present: intact, erythema, dry Comments: Erythema and Edema RUE - Routine Neurological Exam Present: alert, oriented X3, CN II-XII intact - Urinary Catheter Management Indwelling Urethral Catheter Cath placed during this visit: yes Reason for continuing: Gross Hematuria Insertion date: 06/04/18 Insertion time: 18:15 Assessment and Plan - Plan 1) Resp Insuff 2)CRISTIANE 3) Acute on CKD 4)Cirrhosis of Liver 5)Hep C 6)? Cellulites RUE 7)Anemia 8)Coagulopathy Plan Continue with oxygen keep sats >92% Bronchodilators, Incentive spirometry BIPAP PRN Continue with abx (Bactrim) monitor for signs of infections ( Fever, WBC) Monitor renal function, avoid nephrotoxins, HD per renal Monitor CBC, coags Continue treatment plan
--- NOTE | 2018-06-22 13:00 | IR ---
EXAM DATE: 06/21/2018 10:19 AM EDT AGE/SEX: 58 years / Male INDICATIONS: Patient with a history of renal disease, needs dialysis. CLINICAL DATA: This is the patient's subsequent encounter. Patient reports that signs and symptoms h ave been present for 2 weeks and indicates a pain score of 8/10. MEDICAL/SURGICAL HISTORY: . Cirrhosis CAD AFIB HTN Hyperlipidemia COPD HEP CCHFEndocarditisRayn auds syndrome . Aortic valve replacement Cholecystectomy CABG Lung surgery COMPARISON: No prior exams available for comparison. FLUORO TIME (min): 0.3 IMAGE SERIES: 1 SEDATION TIME (min): 30 CONTRAST (cc): 0 MEDICATION(S): 2mg midazolam (Versed) IV 150mcg fentanyl (Sublimaze) IV 5,000units Thrombin Vancomycin within 2 hrs of procedure, Ancef (or alternative) within 1 hr of procedure. DEVICE(S): Right 23CM SPENCER . . PROCEDURE: 1. Dialysis catheter placement. 2. Conscious sedation with continuous EKG and oximetry monitoring. The risks, benefits and alternatives to the procedure were explained and verbal and written consent w as obtained. The site was prepped in sterile fashion. Full sterile technique was used, including ca p, mask, sterile gloves and gown and a large sterile sheet. Hand hygiene and 2% chlorhexidine and/or betadine/alcohol prep was utilized per protocol for cutaneous antisepsis. The skin and subcutaneous tissues were infiltrated with local anesthetic solution. With fluoroscopic guidance a dermatotomy was created using the existing venous access. A subcutaneou s tunnel was created in a retrograde fashion the catheter was pulled through the tunnel. The cathete r was flushed and assembled and locked with heparin. The catheter was sutured in place. Conscious sedation was performed with the prescribed dosages and duration as above in the presence of an independent trained radiology nurse to assist in the monitoring of the patient. EKG and oximetry remained stable throughout the procedure. The patient tolerated the procedure well and there were n o complications. The patient was sent to post anesthesia recovery in stable condition. CONCLUSION: 1. Uncomplicated Dialysis catheter placement as above. 2. Of note, patient appears to be extremely volume overloaded with fluid flowing freely from the hernando sh chest wall incision as well as high central venous pressures making it difficult to maintain hemos tasis at the cervical dermatotomy. Discussed urgent dialysis with the diaphysis center. Electronically signed by: Braxton Benitez MD 06/22/2018 12:59 PM EDT
--- NOTE | 2018-06-22 18:16 | P.CONURO ---
History of Present Illness Service: Consult date: 06/22/18 Reason for Consult: Clot retention Primary Care Provider: [facility] Family Provider: [facility] Chief Complaint: Hyperkalemia, elevation in Creatinine. History of Present Illness: 58-year-old gentleman with multiple medical problems including liver cirrhosis who was previously evaluated by for urinary retention and advised management with an indwelling Ureña with outpatient follow-up. A new urology consult is now placed for development of gross hematuria with a poorly draining Ureña catheter. At the time of consultation the patient was complaining of bladder spasms and severe suprapubic pain. The urine output was grossly bloody with clots in the catheter tubing. Patient does have an elevated INR and his serum creatinine levels have been gradually trending upwards. I proceeded with replacing his 16 Martiniquais Ureña catheter with a three-way 20 Martiniquais CBI catheter and the bladder was irrigated free of clots with a Ania syringe and CBI was then implemented. Patient had significant relief in his symptoms. Review of Systems All other systems reviewed negative except as stated in HPI PMFSH - History History Provided By: Patient, Medical Record - Medical History Medical History: Medical History (Last Reviewed 06/15/18 @ 07:53 by Robin Miranda) Cirrhosis (Acute) CAD (coronary artery disease) (Acute) Afib (Acute) Hyperlipemia (Acute) H/O: HTN (hypertension) (Acute) COPD (chronic obstructive pulmonary disease) (Acute) Hepatitis C (Acute) Myocardial infarct (Acute) Chest pain (Acute) CHF (congestive heart failure) Endocarditis History of alcohol use Raynauds syndrome Tobacco abuse - Surgical History Surgical History: Surgical History (Last Reviewed 06/11/18 @ 09:12 by Milagro Marquez) H/O aortic valve replacement (Acute) History of cholecystectomy (Acute) H/O: knee surgery History of lung surgery Hx of CABG Previous back surgery - Family History Family History: Family History (Last Reviewed 06/15/18 @ 07:54 by Robin Miranda) Father Family history of cancer Mother Family history of diabetes mellitus Mother Family history of breast cancer - Tobacco History Second Hand Smoke Exposure: Yes Tobacco Use In Past 30 Days: Yes (states he quit 1 week ago.) Smoking Status: Former smoker Tobacco Type: Cigarettes - Alcohol History How Often Do You Have a Drink Containing Alcohol: Never - Substance Use History Substance History: Past History - Substance Use Type Alcohol Status: Early Remission Route Used: By Mouth Reason for Use: Calm Down, Feels Good Heroin Status: Sustained Remission Route Used: Intravenously Reason for Use: Feels Good Comment: has not used in over 1 year. - Travel History Recent Travel in the [place] Within the Last 8 Weeks: No Recent Travel Out of the Country Within the Last 8 Weeks: No - Immunization History Tetanus Immunization: <5 Years Hx Influenza Vaccine This Season: Yes Medications and Allergies Active Medications: Active Medications Acetaminophen (Tylenol) 650 mg PO UNSCH PRN PRN Reason: SEE LABEL COMMENTS Al Hydroxide/Mg Hydroxide (Milk Of Kayla Hammer) 30 ml PO Q12H PRN PRN Reason: Mild Constipation Albuterol (Duoneb Neb (Prn)) 1 ampul NEB Q2HR NEB PRN PRN Reason: DYSPNEA Albuterol (Duoneb Neb ([place])) 1 ampul NEB Q6HR NEB [place] Last Admin: 06/22/18 16:44 Dose: Not Given Bisacodyl (Dulcolax Supp) 10 mg RECTAL DAILY PRN PRN Reason: SEVERE CONSITIPATION Clonidine HCl (Catapres) 0.1 mg PO UNSCH PRN PRN Reason: SEE LABEL COMMENTS Diphenhydramine HCl (Benadryl) 25 mg PO Q4H PRN PRN Reason: pruritis Last Admin: 06/17/18 21:38 Dose: 25 mg Gelatin (Gelfoam 12 Mm/7 Mm Topical) 1 foam TOPICAL PRN PRN PRN Reason: help stop bleeding from site Gentamicin Sulfate (Gentamicin Inj) 20 mg OTHER WITH DIALYSIS PRN PRN Reason: Dwell Gentamycin Lock Last Admin: 06/21/18 11:00 Dose: 20 mg Heparin Sodium (Porcine) (Heparin Inj) 5,000 units SQ Q12HR [place] Last Admin: 06/21/18 08:11 Dose: Not Given Heparin Sodium (Porcine) (Heparin Inj) 8,000 units OTHER WITH DIALYSIS PRN PRN Reason: for machine prime Heparin Sodium (Porcine) (Heparin Inj) 1,000 units OTHER WITH DIALYSIS PRN PRN Reason: Dwell Heparin to Fill Catheter Last Admin: 06/21/18 11:00 Dose: 1,000 units Heparin Sodium (Porcine) (Heparin Central Flush) 0 unit IV.FLUSH DAILY [facility] Last Admin: 06/22/18 08:11 Dose: Not Given Heparin Sodium (Porcine) (Heparin Central Flush) 0 unit IV.FLUSH PRN PRN PRN Reason: Flush each lumen Heparin Sodium (Porcine) (Heparin Central Flush) 0 unit IV.FLUSH DAILY PRN PRN Reason: SEE DOSE INSTRUCTIONS Heparin Sodium (Porcine) (Heparin Central Flush) 0 unit IV.FLUSH DAILY PRN PRN Reason: SEE DOSE INSTRUCTIONS Albumin Human (Flexbumin 25% Inj) 100 mls @ 60 mls/hr IV.SIG WITH DIALYSIS PRN PRN Reason: hypotension / volume replace Last Infusion: 06/21/18 11:51 Dose: Infused Sodium Chloride (Ns Inj) 1,000 mls @ 0 mls/hr OTHER .Q0M PRN PRN Reason: for prime and rinse back Last Infusion: 06/21/18 06:35 Dose: Infused Sodium Chloride (Ns Inj) 1,000 mls @ 200 mls/hr OTHER .Q5H PRN PRN Reason: for dialyzer flush PRN Sodium Chloride (Ns Inj) 1,000 mls @ 0 mls/hr IV.CONT .Q0M PRN PRN Reason: hypotension / volume replace Sodium Chloride (Ns Inj) 500 mls @ 0 mls/hr IV.SIG BOLUS [facility] Last Infusion: 06/10/18 07:31 Dose: Infused Lactulose (Lactulose Liq) 30 ml PO BID [facility] Last Admin: 06/22/18 08:09 Dose: 30 ml Mannitol (Mannitol Inj) 12.5 gm IV.PUSH UNSCH PRN PRN Reason: hypotension / volume replace Metoprolol Tartrate (Lopressor) 50 mg PO BID [facility] Last Admin: 06/22/18 08:09 Dose: 50 mg Metoprolol Tartrate (Lopressor Inj) 2.5 mg IV.PUSH Q6H PRN PRN Reason: TACHYCARDIA GREATER THAN 120 Midodrine (Proamatine) 10 mg PO TID@0700,1200,1700 [facility] Last Admin: 06/22/18 16:51 Dose: 10 mg Morphine Sulfate (Msir) 15 mg PO Q6H PRN PRN Reason: Pain 5-10 Nitroglycerin (Nitrostat Sl) 0.4 mg SL Q5M PRN PRN Reason: CHEST PAIN Nystatin (Mycostatin Powder) 1 applicatio TOPICAL QID [facility] Last Admin: 06/22/18 12:45 Dose: 1 applicatio Ondansetron HCl (Zofran Inj) 4 mg IV.PUSH Q6H PRN PRN Reason: NAUSEA OR VOMITING Last Admin: 06/19/18 04:22 Dose: 4 mg Ondansetron HCl (Zofran Odt) 4 mg PO Q4H PRN PRN Reason: NAUSEA Last Admin: 06/20/18 02:02 Dose: 4 mg Oxybutynin Chloride (Ditropan) 5 mg PO TID PRN PRN Reason: bladder spasm Oxycodone HCl (Roxicodone) 5 mg PO Q6H PRN PRN Reason: pain 1- 5 Last Admin: 06/22/18 04:20 Dose: 5 mg Oxycodone HCl (Roxicodone) 10 mg PO Q6H PRN PRN Reason: 6-10 pain Last Admin: 06/22/18 16:51 Dose: 10 mg Patient Own: Harvoni (Ledipasvir/Sofosbuvir) 90/400 Tab 0 each PO DAILY [facility] Last Admin: 06/22/18 08:10 Dose: 1 each Rifaximin (Xifaxan) 550 mg PO Q12H [facility] Last Admin: 06/22/18 10:51 Dose: 550 mg Sennosides (Senokot) 17.2 mg PO Q12H PRN PRN Reason: Moderate Constipation Last Admin: 06/18/18 21:40 Dose: 17.2 mg Sodium Chloride (Ns Flush) 5 ml IV.FLUSH PRN PRN PRN Reason: flush each lumen during HD Sodium Chloride (Ns Flush) 0 ml IV.FLUSH DAILY [facility] Last Admin: 06/22/18 08:10 Dose: 2 ml Sodium Chloride (Ns Flush) 0 ml IV.FLUSH PRN PRN PRN Reason: FLUSH AFTER USING IV ACCESS Sodium Chloride (Ns Flush) 0 ml IV.FLUSH PRN PRN PRN Reason: SEE DOSE INSTRUCTIONS Sodium Chloride (Ns Flush) 0 ml IV.FLUSH PRN PRN PRN Reason: SEE DOSE INSTRUCTIONS Tamsulosin HCl (Flomax) 0.4 mg PO DAILY [facility] Last Admin: 06/10/18 08:37 Dose: 0.4 mg Torsemide (Demadex) 20 mg PO BID [facility] Last Admin: 06/22/18 08:09 Dose: 20 mg Trimethoprim/Sulfamethoxazole (Bactrim Ds) 1 tab PO Q12HR [facility] Last Admin: 06/22/18 08:09 Dose: 1 tab Allergies Allergy/AdvReac Type Severity Reaction Status Date / Time erythromycin base Allergy Severe HIVES Verified 05/29/18 16:34 fenoprofen Allergy Severe HIVES Verified 05/29/18 16:34 Home Medications Medication Instructions Recorded Confirmed Type aspirin 325 mg PO DAILY 04/06/18 05/29/18 History atenolol 50 mg PO DAILY 04/27/18 05/29/18 History furosemide [Lasix] 40 mg PO DAILY 05/01/18 05/29/18 History ledipasvir-sofosbuvir [Harvoni] 1 tab PO QAM 05/23/18 05/29/18 History Physical Exam Vital Signs - 24 hr 06/21/18 19:44 06/21/18 20:00 06/22/18 00:00 Temperature 97.9 F 97.6 F Pulse Rate 70 67 Respiratory Rate 16 16 Blood Pressure 102/49 L 89/47 L Pulse Oximetry 94 L 100 98 06/22/18 04:00 06/22/18 08:00 06/22/18 08:23 Temperature 97.7 F 98.8 F Pulse Rate 74 70 Respiratory Rate 17 16 Blood Pressure 94/56 L 91/52 L Pulse Oximetry 98 94 L 94 L 06/22/18 11:19 06/22/18 16:53 Temperature 98.2 F 98.6 F Pulse Rate 69 74 Respiratory Rate 18 18 Blood Pressure 98/70 L 119/80 Pulse Oximetry 92 L Physical Exam: GENERAL: This is a well-nourished, well-developed patient, in no apparent distress. SKIN: No rashes, ecchymoses or lesions. Cool and dry. HEAD: Atraumatic. Normocephalic. No temporal or scalp tenderness. EYES: Pupils equal round and reactive. Extraocular motions intact. No scleral icterus. No injection or drainage. ENT: Nose without bleeding, purulent drainage or septal hematoma. Throat without erythema, tonsillar hypertrophy or exudate. Uvula midline. Airway patent. NECK: Trachea midline. No JVD or lymphadenopathy. Supple, nontender, no meningeal signs. GASTROINTESTINAL: Abdomen soft, non-tender, nondistended. No hepato-splenomegaly , or palpable masses. No guarding. GENITOURINARY: Bladder moderately distended, poorly draining Ureña catheter with gross blood and clots in the tubing. Penile foreskin edematous MUSCULOSKELETAL: Extremities adequately perfused NEUROLOGICAL: Awake and alert. Cranial nerves II through XII intact. Motor and sensory grossly within normal limits. Five out of 5 muscle strength in all muscle groups. Normal speech. Laboratory Results - last 24 hr 06/21/18 06/22/18 06/22/18 19:23 05:19 14:43 Hgb 9.5 L Hct 29.3 L Sodium 134 L Potassium 4.2 Chloride 97 L Carbon Dioxide 28.7 Anion Gap 8 BUN 29 H Creatinine 4.42 H Estimated GFR 14 L POC Glucose Random Glucose 88 Calcium 8.8 Total Creatine Kinase 76 06/22/18 16:51 Hgb Hct Sodium Potassium Chloride Carbon Dioxide Anion Gap BUN Creatinine Estimated GFR POC Glucose 81 Random Glucose Calcium Total Creatine Kinase Result Diagrams: 06/21/18 19:23 06/22/18 05:19 Imaging: ITS Impressions Abdomen Ultrasound 05/30/18 00:00 CONCLUSION: Perihepatic ascites, insufficient at present to warrant paracentesis Chest X-Ray 06/09/18 00:00 CONCLUSION: 1. Hazy opacity in the right mid and lower lung suggests pleural effusion with or without infiltrate. 2. Large bore central line tip projects in the right atrium. Venous Doppler Study 06/18/18 00:00 CONCLUSION: 1. Negative for deep venous thrombosis right upper extremity. Abdomen/Bladder Ultrasound 06/21/18 00:00 CONCLUSION: 1. Unremarkable kidneys and decompressed urinary bladder. 2. Some free fluid within the pelvis. Catheter Placement 06/21/18 00:00 CONCLUSION: 1. Uncomplicated Dialysis catheter placement as above. 2. Of note, patient appears to be extremely volume overloaded with fluid flowing freely from the fresh chest wall incision as well as high central venous pressures making it difficult to maintain hemostasis at the cervical dermatotomy. Discussed urgent dialysis with the diaphysis center. Assessment and Plan - Assessment (1) Urinary retention Code(s): R33.9 - Retention of urine, unspecified Status: Acute (2) Gross hematuria Code(s): R31.0 - Gross hematuria Status: Acute - Plan Urologic impression: 1. Gross hematuria related to Ureña trauma exacerbated by INR elevation 2. Urinary retention of indeterminate etiology Recommendations: 1. Continue CBI with Amicar solution until hematuria resolved. 2. Continue with indwelling Ureña catheter even after hematuria resolved. 3. Patient will require further urologic workup to include cystoscopy when medically stable (this can be performed as an outpatient).
--- NOTE | 2018-06-22 19:40 | CT ---
EXAM DATE: 06/22/2018 7:15 PM EDT AGE/SEX: 58 years / Male INDICATIONS: Redness, pain and swelling right elbow CLINICAL DATA: This is the patient's initial encounter. Patient reports that signs and symptoms have been present for 1 day and indicates a pain score of 10/10. MEDICAL/SURGICAL HISTORY: Renal failure, acute. Hepatitis C. Cirrhosis. Atrial fib Cholecys tectomy. Aortic valve replacement RADIATION DOSE: 19.07 CTDI (mGy) COMPARISON: No prior exams available for comparison. TECHNIQUE: Multiple contiguous axial images were acquired using a multi-row detector CT scanner. Mu ltiplanar reconstruction was performed in the sagittal and coronal planes. Using automated exposure control and adjustment of the mA and/or kV according to patient size, radiation dose was kept as low as reasonably achievable to obtain optimal diagnostic quality images. DICOM format image data is veronica ilable electronically for review and comparison. FINDINGS: No fracture is identified. There are edematous changes in the subcutaneous tissues around the distal arm and proximal forearm including elbow. Anasarca is also noted with a moderate size right pleural e ffusion. No aggressive bony destructive changes are seen. CONCLUSION: 1. Moderate anasarca with possible cellulitis around the elbow. No acute bony abnormality. No discre te or drainable fluid collections are identified. 2. Moderate size right pleural effusion. Electronically signed by: Mian Watkins MD 06/22/2018 7:39 PM EDT
[2018-06-23] MEDS: Sodium Chloride 0.9% Irr Bag 3,000 ML, Aminocaproic Acid Inj 3,000 MG IRRIGATION PRN ×2 (03:17)
--- NOTE | 2018-06-23 08:32 | P.PN ---
Subjective Interval history: Had HD Pain in his groin improved Also pain in his arm improving Will ask ID for consult for recommendations Hematuria improving with CBI, urology following as well. Has good UOP Physical Exam Vital signs: Vital Signs 06/22/18 11:19 06/22/18 16:24 06/22/18 16:53 Temperature 98.2 F 98.6 F Pulse Rate 69 64 74 Respiratory Rate 18 17 18 Blood Pressure 98/70 L 119/80 Pulse Oximetry 92 L 06/22/18 20:00 06/22/18 20:06 06/23/18 00:00 Temperature 97.8 F 98.3 F Pulse Rate 64 64 65 Respiratory Rate 17 17 17 Blood Pressure 103/61 103/51 L Pulse Oximetry 100 98 06/23/18 03:34 06/23/18 04:00 06/23/18 08:00 Temperature 97.5 F L 98.6 F Pulse Rate 63 65 72 Respiratory Rate 15 17 18 Blood Pressure 112/49 L 105/74 Pulse Oximetry 99 95 Intake & Output 06/22/18 06/23/18 06/23/18 18:59 06:59 18:59 Intake Total 880 / 880 Output Total 100 / 100 Balance 780 / 780 Weight 100 kg Intake: Oral 880 / 880 Output: Urine 100 / 100 Other: Bladder Irrigation Fluid - Amount Instilled Indwelling Urethral Catheter 5,500 Bladder Irrigation Fluid - Amount Drained Indwelling Urethral Catheter 6,150 Date of Last Bowel Movement 06/21/18 06/23/18 # Bowel Movements 1 1 Narrative: GENERAL: Pleasant 58 yo male, with anasarca. Alert, Oriented x 3, appears in NAD. SKIN: Warm and dry. Anasarca improved . However right arm is more swollen and there is redness and more tenderness to palpation. CARDIOVASCULAR: Regular rate and rhythm without murmurs, gallops, or rubs. S1- S2 no S3 or S4 RESPIRATORY: Breath sounds equal bilaterally. No accessory muscle use. GASTROINTESTINAL: Abdomen distended, nontender to palpation good bowel sounds throughout soft nontender MUSCULOSKELETAL: No cyanosis. LESS edema in upper and lower ext. +1 in upper extremity and lower extremity bilaterally. Right arm with edema +2, redness and pain to palpation. Anasarca. BACK: Nontender without obvious deformity. No CVA tenderness. - Urinary Catheter Management Indwelling Urethral Catheter Cath placed during this visit: yes Reason for continuing: Gross Hematuria Insertion date: 06/04/18 Insertion time: 18:15 Results - Labs CBC & Chem 7: 06/21/18 19:23 06/22/18 05:19 Laboratory Results - last 24 hr 06/22/18 06/22/18 14:43 16:51 POC Glucose 81 Total Creatine Kinase 76 - Imaging Impressions Catheter Placement 06/21/18 00:00 CONCLUSION: 1. Uncomplicated Dialysis catheter placement as above. 2. Of note, patient appears to be extremely volume overloaded with fluid flowing freely from the fresh chest wall incision as well as high central venous pressures making it difficult to maintain hemostasis at the cervical dermatotomy. [facility]. Elbow CT 06/22/18 00:00 CONCLUSION: 1. Moderate anasarca with possible cellulitis around the elbow. No acute bony abnormality. No discrete or drainable fluid collections are identified. 2. Moderate size right pleural effusion. - Procedures EXAM DATE: 06/06/2018 4:32 PM EDT AGE/SEX: 58 years / Male INDICATIONS: Patient with history of chronic kidney disease in need of non tunneled dialysis catheter CLINICAL DATA: This is the patient's initial encounter. Patient reports that signs and symptoms have been present for 1 week and indicates a pain score of 8/ 10. MEDICAL/SURGICAL HISTORY: Hepatitis C. Liver cirrhosis, CKD, CAD, A-Fib, HLD, HTN, COPD, CO, CHF, Raynauds syndrome Cholecystectomy. Aortic valve replacement, Knee surgery, CABG, Lung surgery, Back surgery COMPARISON: No prior exams available for comparison. FLUORO TIME (min): 0.1 IMAGE SERIES: 1 ACCESS SITE: Right internal jugular vein DEVICE(S): 14 Korean double lumen X20CM Schon catheter . . PROCEDURE : 1. Ultrasound guided venipuncture. 2. Fluoroscopic guidance. 3. Central line placement. The risks, benefits and alternatives to the procedure were explained and verbal and written consent was obtained. The site was prepped in sterile fashion. Full sterile technique was used, including cap, mask, sterile gloves and gown and a large sterile sheet. Hand hygiene and 2% chlorhexidine prep was utilized per protocol for cutaneous antisepsis with appropriate dry time for site. Sterile gel and sterile probe cover were utilized for ultrasound guidance. The skin and subcutaneous tissues were infiltrated with local anesthetic solution. A suitable site above the vein was selected with ultrasound and fluoroscopic guidance. A small incision was made. The vein was accessed under direct ultrasound visualization using the micropuncture technique. The micropuncture set was exchanged for a 0.035 wire. The tract was dilated. The catheter was advanced into position under direct fluoroscopic visualization, and was advanced with the tip at the junction of the superior vena cava and rt atrium. The catheter was fixed in place with suture and a sterile dressing was applied. The patient tolerated the procedure well and there were no complications. CONCLUSION: 1. Uncomplicated line placement as above. Electronically signed by: Joe Garcia MD 06/07/2018 9:37 AM EDT Undergoing hemodialysis so far on and AND 06-09 Assessment and Plan - Plan Mr. Boogie is a pleasant 58-year-old male with a history of hepatitis C on Harvoni, CKD who was admitted to the hospital after he had a blood work at the [place] which shows hypokalemia and worsening creatinine. Acute on chronic kidney disease Hyperkalemia Hyponatremia -Creatinine 2.5 --> 1.80 --> 1.90 ==> 2.2 ==> 2.9 ==> 3.7 --->4.26--> NOW 3.9 . Continue to improve with HD. His baseline creatinine is about 1.4-1.6. -Is being given Lasix 80 mg IV twice daily as well as Zaroxolyn and ProAmatine -Potassium has improved. -Discussed with Nephrology on 06/03/2018. . -transfer patient to the main hospital. -Continue Midodrine, albumin and Octreotide. -May need at least transient dialysis. REMAINS CONFUSED CHECK AMMONIA NOW AND TOMORROW Acute renal failure status post chemo dialysis catheter placed on Status post hemodialysis on 06-06 and repeat hemodialysis on Hypokalemia replace with potassium bath during hemodialysis WATCH ELECTROLYTES Patient with hepato renal syndrome With azotemia and Creatinine requiring hemodialysis Urine sodium low Patient with hepatorenal syndrome patient with HCV cirrhosis and on transplant list at [place] Vas-Cath replaced 06/15 after patient accidentally pulled vas cath. . Monitor kidney function Paroxysmal Atrial fibrillation -Patient takes Atenolol at home. Continue Metoprolol 25mg BID. -[id number] score 0. Although Aspirin would be beneficial, given his liver cirrhosis, it maybe risky to start Aspirin. -Patient will discuss with his special agent after hospitalization. Liver cirrhosis Hepatitis C COAGULOPATHY -Patient is currently on Harvoni. Abdominal ultrasound did not reveal enough ascites to drain. -Patient follows up with [place] with regards to liver transplant. - Morphine for abdominal pain. -Ammonia level is increased will make sure he is on lactulose may have to add rifaximin and increase lactulose to 3 times daily-ammonia level is still increased will monitor Full code. INR is 1.7 due to liver disease. Will start patient on Heparin 5000 unit SQ Q12hrs for DVT prophylaxis. PT AND OT TO EVAL AND TREAT consult pulmonary OXYGEN NEEDED BIPAP AT NIGHT AND FOR NAPS HD PER NEPHROLOGY Pulled central line by accident 06.14 . Nephrology ff if needs more dialysis might need a new line Right arm possible cellulitis ?. Patient with swelling redness and pain of the right arm. Check CBC, CMP. Wound cultures if possible. Consult wound care. Wound care recommend clean soap and water, leave open, use UltraSorb if weeping DC Bactrim. Start IV vanco. Consult ID for further recs for abx/ Continue hemodialysis as patient will anasarca. Keep arm elevated Patient however with more pain erythema and swelling of the right arm not improving , and anasarca otherwise is improving with HD. Check CPK, will consult hand surgeon Consult hand surg for eval for poss compartment sdr , discussed with Dr Osmel Velazquez will eval patient. CT right elbow ordered Gross hematuria traumatic jordan insertion in the setting of elevated INR Urology consulted, seen by Dr Mota, appreciate recommendations Continue CBI with Amicar solution until hematuria resolved. Continue with indwelling Jordan catheter even after hematuria resolved. Patient will require further urologic workup to include cystoscopy when medically stable (this can be performed as an outpatient). WILL NEED FOLLOW UP WITH [place] [facility] AFTER DISCHARGE Code Status: FULL CODE Discussed Condition With: Patient, family at bedside his , nurse Discharge Planning: Plan to DC home with home health. Patient needs HD, so far not cleared by nephrology Anasarca improved with HD Cleared by GI to follow up as OP with GI at [facility] pending improvement and clearance by nephrology Pulled accidentally vas cath on 06/14. IR placed a new vas cath on 06/15 Continue HD per nephrology Right arm swelling, erythema and more pain, check CPK. Consult hand surg for evaluation poss compartment sdr. Plan for CT right arm CT shows cellulitis DC bactrim and start IV vanco . Consult ID for further abx recommendations
[2018-06-23] MEDS ORDERED: Vancomycin Consult Pharmacy OTHER PRN (08:43)
[2018-06-23] MEDS: Torsemide 20 MG Tablet PO SCH ×2 (08:46→21:07)
[2018-06-23] MEDS: Nystatin 100,000 UNITS/GM Powder 15 GM Bottle TOPICAL SCH ×2 (08:47→21:09)
[2018-06-23] MEDS: Heparin Central Flush 100 UNIT/ML 5 ML Vial IV.FLUSH SCH (08:47)
[2018-06-23] MEDS: HARVONI PO SCH (08:47)
[2018-06-23] MEDS: Metoprolol Tartrate 50 MG Tablet PO SCH ×2 (08:47→23:59)
[2018-06-23] MEDS ORDERED: Vancomycin Inj 1 GM/200 ML PIGGYBACK IV.SIG SCH (09:00)
[2018-06-23] MEDS: Heparin 10,000 UNITS/10 ML Vial (for IV use) OTHER PRN (09:56)
--- NOTE | 2018-06-23 09:59 | P.PNNP ---
Subjective Interval history: patient was seen during dialysis. On 3K, UF goal is 3 liters. BFR is 330 ml/ min. Tolerating it well. Physical Exam Vital signs: Vital Signs 06/22/18 11:19 06/22/18 16:24 06/22/18 16:53 Temperature 98.2 F 98.6 F Pulse Rate 69 64 74 Respiratory Rate 18 17 18 Blood Pressure 98/70 L 119/80 Pulse Oximetry 92 L 06/22/18 20:00 06/22/18 20:06 06/23/18 00:00 Temperature 97.8 F 98.3 F Pulse Rate 64 64 65 Respiratory Rate 17 17 17 Blood Pressure 103/61 103/51 L Pulse Oximetry 100 98 06/23/18 03:34 06/23/18 04:00 06/23/18 08:00 Temperature 97.5 F L 98.6 F Pulse Rate 63 65 72 Respiratory Rate 15 17 18 Blood Pressure 112/49 L 105/74 Pulse Oximetry 99 95 Intake & Output 06/22/18 06/23/18 06/23/18 18:59 06:59 18:59 Intake Total 880 / 880 Output Total 100 / 100 Balance 780 / 780 Weight 100 kg Intake: Oral 880 / 880 Output: Urine 100 / 100 Other: Bladder Irrigation Fluid - Amount Instilled Indwelling Urethral Catheter 5,500 Bladder Irrigation Fluid - Amount Drained Indwelling Urethral Catheter 6,150 Date of Last Bowel Movement 06/21/18 06/23/18 # Bowel Movements 1 1 Narrative: GENERAL: Pleasant 58 yo male, with anasarca. Alert, Oriented x 3, appears in NAD. SKIN: Warm and dry. Anasarca improved . However right arm is more swollen and there is redness and more tenderness to palpation. CARDIOVASCULAR: Regular rate and rhythm without murmurs, gallops, or rubs. S1- S2 no S3 or S4 RESPIRATORY: Breath sounds equal bilaterally. No accessory muscle use. GASTROINTESTINAL: Abdomen distended, nontender to palpation good bowel sounds throughout soft nontender MUSCULOSKELETAL: No cyanosis. LESS edema in upper and lower ext. +1 in upper extremity and lower extremity bilaterally. Right arm with edema +2, redness and pain to palpation. Edema has improved. BACK: Nontender without obvious deformity. No CVA tenderness. - Urinary Catheter Management Indwelling Urethral Catheter Cath placed during this visit: yes Reason for continuing: Gross Hematuria Insertion date: 06/04/18 Insertion time: 18:15 Assessment and Plan - Assessment (1) Acute renal failure superimposed on stage 3 chronic kidney disease Code(s): N17.9 - Acute kidney failure, unspecified; N18.3 - Chronic kidney disease, stage 3 (moderate) Status: Acute (2) Hyponatremia Code(s): E87.1 - Hypo-osmolality and hyponatremia Status: Acute (3) Cirrhosis Code(s): K74.60 - Unspecified cirrhosis of liver Status: Acute - Plan Worsening azotemia: Creatinine was elevated and ended up on hemodialysis Urine sodium low hepatorenal syndrome patient with HCV cirrhosis and on transplant list at [place] He remains on nasal cannula Hemodialysis Monday and Monday Permacath placed Discussed with his significant other and notified them about the progress, there is some recovery of liver functions, transplant referral has to be made by liver specialist This can be done as an outpatient Hemodialysis to continue as outpatient once final discharge set up is complete
[2018-06-23] MEDS ORDERED: Vancomycin Inj 2,000 MG in Sodium Chlor 0.9% Inj 500 ML IV.SIG ONE (10:00)
[2018-06-23] MEDS: Albumin Human 25% Inj 100 ML IV.SIG PRN (10:01)
--- NOTE | 2018-06-23 10:45 | MB ---
cc: Caroline Bolivar MD DATE: 06/22/2018 HISTORY OF PRESENT ILLNESS: Patrick Boogie is a 58-year-old male admitted to the hospital since 05/29/2018, and I was called for evaluation on 06/22/2018, for swelling of the right upper extremity. Per the notes and the patient, the patient actually had worsening swelling in the past several days, which is improving. There was concern for persistent swelling over the right upper extremity. The patient has a lengthy past medical history including liver cirrhosis, chronic kidney disease, hepatitis C, aortic valve replacement and was admitted initially for abnormal potassium and sodium. The patient's family states there are multiple IVs in the right upper extremity, which may have infiltrated, but just with saline flush. It is unknown what medications were in this. Again, the patient denies any paresthesias. He states the pain is controlled. He is actively moving the right upper extremity. PAST MEDICAL HISTORY: Cirrhosis, coronary artery disease, atrial fibrillation, hyperlipidemia, COPD, hepatitis C, myocardial infarction, CHF, endocarditis, Raynaud's syndrome. PAST SURGICAL HISTORY: Aortic valve replacement, cholecystectomy, knee surgery, lung surgery, CABG, back surgery. SOCIAL HISTORY: Questionable tobacco use. Denies current alcohol or drug use. PHYSICAL EXAMINATION: GENERAL: The patient is comfortable in the room, alert and oriented. EXTREMITIES: Exam of the right upper extremity does show significant edema of the right upper extremity, but compartments throughout the whole arm are soft and compressible. Sensation is intact in the median, ulnar and radial distribution. No pain with passive range of motion of the elbow or wrist. Again, sensation intact in the median, ulnar and radial distribution, 2+ radial pulse. Mild erythema over the right upper extremity without any wounds. LABORATORY DATA: Show a white count of 12.6. INR 1.9. Elbow CT shows moderate anasarca. No discrete drainable fluid collection. ASSESSMENT AND PLAN: A 58-year-old male with diffuse swelling of the right upper extremity. At this time, I do not recommend any surgical intervention. The patient should be monitored closely. He should elevate the right upper extremity. We will continue to follow. MD KAREN Venegas/mechelle/charis , 08:43 AM , 08:49 AM RISHI
[2018-06-23] MEDS ORDERED: Vancomycin Inj 1,500 MG in Sodium Chlor 0.9% Inj 500 ML IV.SIG ONE (11:00)
--- NOTE | 2018-06-23 11:51 | P.PNPL ---
Subjective Interval history: Patient is on 2L oxygen with good sats. Afebrile. Receiving HD. Edema RUE overall better. Physical Exam Vital signs: Vital Signs 06/22/18 16:24 06/22/18 16:53 06/22/18 20:00 Temperature 98.6 F 97.8 F Pulse Rate 64 74 64 Respiratory Rate 17 18 17 Blood Pressure 119/80 103/61 Pulse Oximetry 100 06/22/18 20:06 06/23/18 00:00 06/23/18 03:34 Temperature 98.3 F Pulse Rate 64 65 63 Respiratory Rate 17 17 15 Blood Pressure 103/51 L Pulse Oximetry 98 06/23/18 04:00 06/23/18 08:00 Temperature 97.5 F L 98.6 F Pulse Rate 65 72 Respiratory Rate 17 18 Blood Pressure 112/49 L 105/74 Pulse Oximetry 99 95 Intake & Output 06/22/18 06/23/18 06/23/18 18:59 06:59 18:59 Intake Total 880 / 880 100 / 100 Output Total 100 / 100 Balance 780 / 780 100 / 100 Weight 100 kg Intake: IV 100 / 100 Flexbumin 25% Inj 100 ML @ 60 100 / 100 mls/hr IV.SIG WITH DIALYSIS PRN Rx#:[id number] Oral 880 / 880 Output: Urine 100 / 100 Other: Bladder Irrigation Fluid - Amount Instilled Indwelling Urethral Catheter 5,500 Bladder Irrigation Fluid - Amount Drained Indwelling Urethral Catheter 6,150 Date of Last Bowel Movement 06/21/18 06/23/18 # Bowel Movements 1 1 - Constitutional no acute distress - Routine HEENT Exam Head: Present: normocephalic, atraumatic Eye: Present: EOMI, PERRL, normal accommodation, conjunctivae pink ENT: Present: mucous membranes moist - Routine Neck Exam Present: supple, full ROM, trachea midline - Routine Respiratory Exam Present: CTA bilaterally - Routine Cardiovascular Exam Present: RRR, S1, S2 - Routine Abdominal Exam Present: soft, normoactive bowel sounds - Routine Extremities Exam Present: edema Comments: Edema RUE - Routine Skin Exam Present: intact, erythema, dry Comments: Erythema and edema RUE - Routine Neurological Exam Present: alert, oriented X3, CN II-XII intact - Routine Psychiatric Exam Present: normal affect - Urinary Catheter Management Indwelling Urethral Catheter Cath placed during this visit: yes Reason for continuing: Gross Hematuria Insertion date: 06/04/18 Insertion time: 18:15 Assessment and Plan - Plan 1) Resp Insuff 2)CRISTIANE 3) Acute on CKD 4)Cirrhosis of Liver 5)Hep C 6) Cellulites RUE 7)Anemia 8)Coagulopathy Plan Continue with oxygen keep sats >92% Bronchodilators, Incentive spirometry BIPAP PRN, check CXR Continue with abx monitor for signs of infections ( Fever, WBC) ID consulted CT elbow: Moderate anasarca with possible cellulitis around the elbow. No acute bony abnormality. No discrete or drainable fluid collections are identified Monitor renal function, avoid nephrotoxins, HD today Monitor CBC, coags Continue treatment plan
--- NOTE | 2018-06-23 12:46 | P.PNURO ---
Subjective Patient symptoms today: Patient reports feeling much better today. He reports that the Ureña catheter has been draining well. Objective Vital Signs: Vital Signs 06/22/18 16:24 06/22/18 16:53 06/22/18 20:00 Temperature 98.6 F 97.8 F Pulse Rate 64 74 64 Respiratory Rate 17 18 17 Blood Pressure 119/80 103/61 Pulse Oximetry 100 06/22/18 20:06 06/23/18 00:00 06/23/18 03:34 Temperature 98.3 F Pulse Rate 64 65 63 Respiratory Rate 17 17 15 Blood Pressure 103/51 L Pulse Oximetry 98 06/23/18 04:00 06/23/18 08:00 Temperature 97.5 F L 98.6 F Pulse Rate 65 72 Respiratory Rate 17 18 Blood Pressure 112/49 L 105/74 Pulse Oximetry 99 95 Intake & Output 06/22/18 06/23/18 06/23/18 18:59 06:59 18:59 Intake Total 880 / 880 615 / 615 Output Total 100 / 100 3500 / 3500 Balance 780 / 780 -2885 / -2885 Weight 100 kg Intake: IV 615 / 615 Flexbumin 25% Inj 100 ML @ 60 100 / 100 mls/hr IV.SIG WITH DIALYSIS PRN Rx#:[id number] Vancomycin Inj 1,500 MG In NS 515 / 515 Inj 500 ML @ 250 mls/hr IV.SIG WITH DIALYSIS ONE Rx#:[id number] Oral 880 / 880 Output: Urine 100 / 100 Hemodialysis Amount 3500 / 3500 Other: Bladder Irrigation Fluid - Amount Instilled Indwelling Urethral Catheter 5,500 Bladder Irrigation Fluid - Amount Drained Indwelling Urethral Catheter 6,150 Date of Last Bowel Movement 06/21/18 06/23/18 # Bowel Movements 1 1 Result Diagrams: 06/21/18 19:23 06/22/18 05:19 Other Results: Ureña catheter with blood-tinged urine. Bladder not distended. Imaging: Impressions Catheter Placement 06/21/18 00:00 CONCLUSION: 1. Uncomplicated Dialysis catheter placement as above. 2. Of note, patient appears to be extremely volume overloaded with fluid flowing freely from the fresh chest wall incision as well as high central venous pressures making it difficult to maintain hemostasis at the cervical dermatotomy. Discussed urgent dialysis with the [facility]. Elbow CT 06/22/18 00:00 CONCLUSION: 1. Moderate anasarca with possible cellulitis around the elbow. No acute bony abnormality. No discrete or drainable fluid collections are identified. 2. Moderate size right pleural effusion. Medications and IVs: Active Medications Generic Name Dose Route Start Last Admin Trade Name Freq PRN Reason Stop Dose Admin Acetaminophen 650 mg 06/05/18 20:24 Tylenol PO UNSCH PRN SEE LABEL COMMENTS Al Hydroxide/Mg Hydroxide 30 ml 05/29/18 18:37 Milk Of Magnesia Liq PO Q12H PRN Mild Constipation Albuterol 1 ampul 06/22/18 12:48 Duoneb Neb (Prn) NEB Q2HR NEB PRN DYSPNEA Albuterol 1 ampul 06/22/18 13:00 06/23/18 09:16 Duoneb Neb ([place]) NEB Not Given Q6HR NEB [place] Bisacodyl 10 mg 05/29/18 18:37 Dulcolax Supp RECTAL DAILY PRN SEVERE CONSITIPATION Clonidine HCl 0.1 mg 06/05/18 20:24 Catapres PO UNSCH PRN SEE LABEL COMMENTS Sodium Chloride 3,000 ml/ 0 ml 06/22/18 21:00 06/23/18 03:17 Aminocaproic Acid 3,000 mg IRRIGATION 3,000 bulkbaginj TITRATE PRN Administration TITRATE RATE LIGHT RED OUTPUT Diphenhydramine HCl 25 mg 06/09/18 21:07 06/17/18 21:38 Benadryl PO 25 mg Q4H PRN Administration pruritis Gelatin 1 foam 06/05/18 20:24 Gelfoam 12 Mm/7 Mm Topical TOPICAL PRN PRN help stop bleeding from site Gentamicin Sulfate 20 mg 06/05/18 20:24 06/23/18 09:56 Gentamicin Inj OTHER 20 mg WITH DIALYSIS PRN Administration Dwell Gentamycin Lock Heparin Sodium (Porcine) 5,000 units 06/04/18 21:00 06/21/18 08:11 Heparin Inj SQ Not Given Q12HR [place] Heparin Sodium (Porcine) 8,000 units 06/05/18 20:24 Heparin Inj OTHER WITH DIALYSIS PRN for machine prime Heparin Sodium (Porcine) 1,000 units 06/05/18 20:24 06/23/18 09:56 Heparin Inj OTHER 1,000 units WITH DIALYSIS PRN Administration Dwell Heparin to Fill Catheter Heparin Sodium (Porcine) 0 unit 06/07/18 09:00 06/23/18 08:47 Heparin Central Flush IV.FLUSH 500 unit DAILY [place] Administration Heparin Sodium (Porcine) 0 unit 06/06/18 16:17 Heparin Central Flush IV.FLUSH PRN PRN Flush each lumen Heparin Sodium (Porcine) 0 unit 06/15/18 19:16 Heparin Central Flush IV.FLUSH DAILY PRN SEE DOSE INSTRUCTIONS Heparin Sodium (Porcine) 0 unit 06/21/18 10:05 Heparin Central Flush IV.FLUSH DAILY PRN SEE DOSE INSTRUCTIONS Albumin Human 100 mls @ 60 mls/hr 06/05/18 20:24 06/23/18 10:08 Flexbumin 25% Inj IV.SIG Infused WITH DIALYSIS PRN Infusion hypotension / volume replace Sodium Chloride 1,000 mls @ 0 mls/hr 06/05/18 20:24 06/21/18 06:35 Ns Inj OTHER Infused .Q0M PRN Infusion for prime and rinse back As Directed Sodium Chloride 1,000 mls @ 200 mls/hr 06/05/18 20:24 Ns Inj OTHER .Q5H PRN for dialyzer flush PRN Sodium Chloride 1,000 mls @ 0 mls/hr 06/05/18 20:24 Ns Inj IV.CONT .Q0M PRN hypotension / volume replace As Directed Sodium Chloride 500 mls @ 0 mls/hr 06/10/18 07:00 06/10/18 07:31 Ns Inj IV.SIG Infused BOLUS [place] Infusion Wide Open Vancomycin HCl 1,000 mg/ 250 mls @ 250 mls/hr 06/24/18 09:00 Sodium Chloride IV.SIG WITH DIALYSIS [place] Vancomycin HCl 1,500 mg/ 515 mls @ 250 mls/hr 06/23/18 11:00 06/23/18 12:02 Sodium Chloride IV.SIG 06/23/18 13:03 Infused WITH DIALYSIS ONE Infusion Lactulose 30 ml 06/13/18 21:00 06/23/18 08:47 Lactulose Liq PO 30 ml BID [place] Administration Mannitol 12.5 gm 06/05/18 20:24 Mannitol Inj IV.PUSH UNSCH PRN hypotension / volume replace Metoprolol Tartrate 50 mg 06/06/18 10:46 06/23/18 08:47 Lopressor PO 50 mg BID [place] Administration Metoprolol Tartrate 2.5 mg 06/06/18 17:26 Lopressor Inj IV.PUSH Q6H PRN TACHYCARDIA GREATER THAN 120 Midodrine 10 mg 06/03/18 17:21 06/23/18 06:36 Proamatine PO 10 mg TID@0700,1200,1700 [place] Administration Morphine Sulfate 15 mg 06/10/18 18:18 Msir PO Q6H PRN Pain 5-10 Nitroglycerin 0.4 mg 06/05/18 20:24 Nitrostat Sl SL Q5M PRN CHEST PAIN Nystatin 1 applicatio 05/30/18 13:00 06/23/18 08:47 Mycostatin Powder TOPICAL 1 applicatio QID [place] Administration Ondansetron HCl 4 mg 05/29/18 18:37 06/19/18 04:22 Zofran Inj IV.PUSH 4 mg Q6H PRN Administration NAUSEA OR VOMITING Ondansetron HCl 4 mg 06/02/18 23:38 06/20/18 02:02 Zofran Odt PO 4 mg Q4H PRN Administration NAUSEA Oxybutynin Chloride 5 mg 06/22/18 17:10 Ditropan PO TID PRN bladder spasm Oxycodone HCl 5 mg 06/10/18 18:18 06/23/18 06:36 Roxicodone PO 5 mg Q6H PRN Administration pain 1- 5 Oxycodone HCl 10 mg 06/10/18 18:20 06/23/18 00:40 Roxicodone PO 10 mg Q6H PRN Administration 6-10 pain Patient Own: Harvoni 0 each 05/31/18 09:00 06/23/18 08:47 (Ledipasvir/ PO 1 each Sofosbuvir) 90/400 DAILY [place] Administration Tab Pharmacy Profile Note 1 each 06/23/18 08:43 Vancomycin Consult Pharmacy OTHER UNSCH PRN Pharmacy to dose Rifaximin 550 mg 06/06/18 11:00 06/22/18 22:35 Xifaxan PO 550 mg Q12H [place] Administration Sennosides 17.2 mg 05/29/18 18:37 06/18/18 21:40 Senokot PO 17.2 mg Q12H PRN Administration Moderate Constipation Sodium Chloride 5 ml 06/05/18 20:24 Ns Flush IV.FLUSH PRN PRN flush each lumen during HD Sodium Chloride 0 ml 06/07/18 09:00 06/22/18 08:10 Ns Flush IV.FLUSH 2 ml DAILY [place] Administration Sodium Chloride 0 ml 06/06/18 16:17 Ns Flush IV.FLUSH PRN PRN FLUSH AFTER USING IV ACCESS Sodium Chloride 0 ml 06/15/18 19:16 Ns Flush IV.FLUSH PRN PRN SEE DOSE INSTRUCTIONS Sodium Chloride 0 ml 06/21/18 10:05 Ns Flush IV.FLUSH PRN PRN SEE DOSE INSTRUCTIONS Tamsulosin HCl 0.4 mg 06/04/18 15:15 06/10/18 08:37 Flomax PO 0.4 mg DAILY [place] Administration Torsemide 20 mg 06/02/18 21:00 06/23/18 08:46 Demadex PO 20 mg BID [place] Administration Assessment and Plan - Assessment (1) Urinary retention Code(s): R33.9 - Retention of urine, unspecified Status: Acute (2) Gross hematuria Code(s): R31.0 - Gross hematuria Status: Acute - Plan Urologic impression: 1. Recent development of gross hematuria related to Ureña trauma exacerbated by INR elevation now almost completely resolved. 2. Urinary retention of indeterminate etiology Recommendations: 1. Taper off CBI. 2. Continue with indwelling Ureña catheter even after hematuria resolved. 3. Patient will require further urologic workup to include cystoscopy when medically stable (this can be performed as an outpatient).
--- NOTE | 2018-06-23 12:57 | P.PN ---
Physical Exam Vital signs: Vital Signs 06/22/18 16:24 06/22/18 16:53 06/22/18 20:00 Temperature 98.6 F 97.8 F Pulse Rate 64 74 64 Respiratory Rate 17 18 17 Blood Pressure 119/80 103/61 Pulse Oximetry 100 06/22/18 20:06 06/23/18 00:00 06/23/18 03:34 Temperature 98.3 F Pulse Rate 64 65 63 Respiratory Rate 17 17 15 Blood Pressure 103/51 L Pulse Oximetry 98 06/23/18 04:00 06/23/18 08:00 Temperature 97.5 F L 98.6 F Pulse Rate 65 72 Respiratory Rate 17 18 Blood Pressure 112/49 L 105/74 Pulse Oximetry 99 95 Intake & Output 06/22/18 06/23/18 06/23/18 18:59 06:59 18:59 Intake Total 880 / 880 615 / 615 Output Total 100 / 100 3500 / 3500 Balance 780 / 780 -2885 / -2885 Weight 100 kg Intake: IV 615 / 615 Flexbumin 25% Inj 100 ML @ 60 100 / 100 mls/hr IV.SIG WITH DIALYSIS PRN Rx#:[id number] Vancomycin Inj 1,500 MG In NS 515 / 515 Inj 500 ML @ 250 mls/hr IV.SIG WITH DIALYSIS ONE Rx#:[id number] Oral 880 / 880 Output: Urine 100 / 100 Hemodialysis Amount 3500 / 3500 Other: Bladder Irrigation Fluid - Amount Instilled Indwelling Urethral Catheter 5,500 Bladder Irrigation Fluid - Amount Drained Indwelling Urethral Catheter 6,150 Date of Last Bowel Movement 06/21/18 06/23/18 # Bowel Movements 1 1 - Urinary Catheter Management Indwelling Urethral Catheter Cath placed during this visit: yes Reason for continuing: Gross Hematuria Insertion date: 06/04/18 Insertion time: 18:15 Results - Labs CBC & Chem 7: 06/21/18 19:23 06/22/18 05:19 Laboratory Results - last 24 hr 06/22/18 06/22/18 14:43 16:51 POC Glucose 81 Total Creatine Kinase 76 - Imaging Impressions Catheter Placement 06/21/18 00:00 CONCLUSION: 1. Uncomplicated Dialysis catheter placement as above. 2. Of note, patient appears to be extremely volume overloaded with fluid flowing freely from the fresh chest wall incision as well as high central venous pressures making it difficult to maintain hemostasis at the cervical dermatotomy. Discussed urgent dialysis with the [facility]. Elbow CT 06/22/18 00:00 CONCLUSION: 1. Moderate anasarca with possible cellulitis around the elbow. No acute bony abnormality. No discrete or drainable fluid collections are identified. 2. Moderate size right pleural effusion. - Procedures EXAM DATE: 06/06/2018 4:32 PM EDT AGE/SEX: 58 years / Male INDICATIONS: Patient with history of chronic kidney disease in need of non tunneled dialysis catheter CLINICAL DATA: This is the patient's initial encounter. Patient reports that signs and symptoms have been present for 1 week and indicates a pain score of 8/ 10. MEDICAL/SURGICAL HISTORY: Hepatitis C. Liver cirrhosis, CKD, CAD, A-Fib, HLD, HTN, COPD, AL, CHF, Raynauds syndrome Cholecystectomy. Aortic valve replacement, Knee surgery, CABG, Lung surgery, Back surgery COMPARISON: No prior exams available for comparison. FLUORO TIME (min): 0.1 IMAGE SERIES: 1 ACCESS SITE: Right internal jugular vein DEVICE(S): 14 [place] double lumen X20CM Schon catheter . . PROCEDURE : 1. Ultrasound guided venipuncture. 2. Fluoroscopic guidance. 3. Central line placement. The risks, benefits and alternatives to the procedure were explained and verbal and written consent was obtained. The site was prepped in sterile fashion. Full sterile technique was used, including cap, mask, sterile gloves and gown and a large sterile sheet. Hand hygiene and 2% chlorhexidine prep was utilized per protocol for cutaneous antisepsis with appropriate dry time for site. Sterile gel and sterile probe cover were utilized for ultrasound guidance. The skin and subcutaneous tissues were infiltrated with local anesthetic solution. A suitable site above the vein was selected with ultrasound and fluoroscopic guidance. A small incision was made. The vein was accessed under direct ultrasound visualization using the micropuncture technique. The micropuncture set was exchanged for a 0.035 wire. The tract was dilated. The catheter was advanced into position under direct fluoroscopic visualization, and was advanced with the tip at the junction of the superior vena cava and rt atrium. The catheter was fixed in place with suture and a sterile dressing was applied. The patient tolerated the procedure well and there were no complications. CONCLUSION: 1. Uncomplicated line placement as above. Electronically signed by: Joe Garcia MD 06/07/2018 9:37 AM EDT Undergoing hemodialysis so far on and AND 06-09 Assessment and Plan - Plan Mr. Boogie is a pleasant 58-year-old male with a history of hepatitis C on Harvoni, CKD who was admitted to the hospital after he had a blood work at the [facility] which shows hypokalemia and worsening creatinine. Acute on chronic kidney disease Hyperkalemia Hyponatremia -Creatinine 2.5 --> 1.80 --> 1.90 ==> 2.2 ==> 2.9 ==> 3.7 --->4.26--> NOW 3.9 . Continue to improve with HD. His baseline creatinine is about 1.4-1.6. -Is being given Lasix 80 mg IV twice daily as well as Zaroxolyn and ProAmatine -Potassium has improved. -Discussed with Nephrology on 06/03/2018. . -transfer patient to the main hospital. -Continue Midodrine, albumin and Octreotide. -May need at least transient dialysis. REMAINS CONFUSED CHECK AMMONIA NOW AND TOMORROW Acute renal failure status post chemo dialysis catheter placed on Status post hemodialysis on 06-06 and repeat hemodialysis on Hypokalemia replace with potassium bath during hemodialysis WATCH ELECTROLYTES Patient with hepato renal syndrome With azotemia and Creatinine requiring hemodialysis Urine sodium low Patient with hepatorenal syndrome patient with HCV cirrhosis and on transplant list at [facility] Vas-Cath replaced 06/15 after patient accidentally pulled vas cath. . Monitor kidney function Paroxysmal Atrial fibrillation -Patient takes Atenolol at home. Continue Metoprolol 25mg BID. -[id number] score 0. Although Aspirin would be beneficial, given his liver cirrhosis, it maybe risky to start Aspirin. -Patient will discuss with his [facility] after hospitalization. Liver cirrhosis Hepatitis C COAGULOPATHY -Patient is currently on Harvoni. Abdominal ultrasound did not reveal enough ascites to drain. -Patient follows up with [facility] with regards to liver transplant. - Morphine for abdominal pain. -Ammonia level is increased will make sure he is on lactulose may have to add rifaximin and increase lactulose to 3 times daily-ammonia level is still increased will monitor Full code. INR is 1.7 due to liver disease. Will start patient on Heparin 5000 unit SQ Q12hrs for DVT prophylaxis. PT AND OT TO EVAL AND TREAT consult pulmonary OXYGEN NEEDED BIPAP AT NIGHT AND FOR NAPS HD PER NEPHROLOGY Pulled central line by accident 06.14 . Nephrology ff if needs more dialysis might need a new line Right arm possible cellulitis ?. Patient with swelling redness and pain of the right arm. Check CBC, CMP. Wound cultures if possible. Consult wound care. Wound care recommend clean soap and water, leave open, use UltraSorb if weeping Cont Bactrim. Continue hemodialysis as patient will anasarca. Keep arm elevated Patient however with more pain erythema and swelling of the right arm not improving , and anasarca otherwise is improving with HD. Check CPK, will consult hand surgeon Consult hand surg for eval for poss compartment sdr , discussed with Dr Osmel Velazquez will eval patient. CT right elbow ordered Gross hematuria traumatic jordan insertion in the setting of elevated INR Urology consulted, seen by Dr Mota, appreciate recommendations Continue CBI with Amicar solution until hematuria resolved. Continue with indwelling Jordan catheter even after hematuria resolved. Patient will require further urologic workup to include cystoscopy when medically stable (this can be performed as an outpatient). WILL NEED FOLLOW UP WITH [facility] AFTER DISCHARGE Code Status: FULL CODE Discussed Condition With: Patient, family at bedside his , nurse Discharge Planning: Plan to DC home with home health. Patient needs HD, so far not cleared by nephrology Anasarca improved with HD Cleared by GI to follow up as OP with GI at [facility] pending improvement and clearance by nephrology Pulled accidentally vas cath on 06/14. IR placed a new vas cath on 06/15 Continue HD per nephrology Right arm swelling, erythema and more pain, check CPK. Consult hand surg for evaluation poss compartment sdr. Plan for CT right arm
[2018-06-23] MEDS: rifAXIMin 550 MG Tablet PO SCH ×2 (14:38→22:24)
--- NOTE | 2018-06-23 14:44 | P.CONID ---
History of Present Illness Service: Infectious disease Consult date: 06/23/18 Requesting Physician: Miriam White Reason for Consult: Evaluate patient with cellulitis Primary Care Provider: [facility] Family Provider: [facility] Chief Complaint: Hyperkalemia, elevation in Creatinine. History of Present Illness: Patient seen and examined. Records reviewed. Patient is a 58-year-old male, with history of liver cirrhosis, hepatitis C, chronic kidney disease, per record is on the liver transplant list, follows at the [place] [facility], presented to the hospital after he was instructed to do so because of abnormal blood work. He had an elevated potassium, low sodium, and elevated creatinine. He was evaluated, and subsequently seen by renal and supply chain planner. He was diagnosed to have hepatorenal syndrome. He was initially in [facility] portal range, and he was transferred to the [facility] on June 05 for further renal evaluation. On June 06 he was started on hemodialysis. He has had previous problem with some confusion, and some atrial arrhythmia and those have all been under control. Patient has been getting hemodialysis every Monday, and Saturdays. On June 18, he started complaining of pain in his right upper extremity. Patient initially had anasarca, and does have improved but the right upper extremity swelling became more prominent. There was reportedly an IV infiltration in his right upper extremity. He had a right upper extremity ultrasound which did not show any DVT. He was started on Bactrim on June 19. He continued to have problem, and surgical evaluation was obtained to evaluate for compartment syndrome. There is no evidence of compartment syndrome. Patient had placement of a permacath on June 21, and he was given Ancef and vancomycin for prophylaxis. Patient states that the swelling in his right upper extremity as well as the pain has improved. He has not been febrile. His last CBC was from June 20 and it was a little elevated. Infectious disease consultation has been requested to evaluate the patient. Review of Systems Constitutional: Denies chills, Denies fever(s), Denies night sweats Eyes: Denies discharge, Denies dry eyes Ears, Nose, Mouth, and Throat: Denies difficulty swallowing, Denies dry mouth, Denies ear discharge, Denies ear pain, Denies facial pain, Denies nasal discharge, Denies pain with swallowing, Denies sore throat Cardiovascular: Denies chest pain, Denies shortness of breath Respiratory: Denies chest congestion, Denies cough, Denies shortness of breath Gastrointestinal: Denies abdominal pain, Denies nausea, Denies pain with swallowing, Denies vomiting Genitourinary: Reports blood in urine Musculoskeletal: Reports joint swelling Skin/Breast: Denies rash, Denies sores PMFSH - History History Provided By: Patient, Medical Record - Medical History Medical History: Medical History (Last Reviewed 06/15/18 @ 07:53 by Robin Miranda) Cirrhosis (Acute) CAD (coronary artery disease) (Acute) Afib (Acute) Hyperlipemia (Acute) H/O: HTN (hypertension) (Acute) COPD (chronic obstructive pulmonary disease) (Acute) Hepatitis C (Acute) Myocardial infarct (Acute) Chest pain (Acute) CHF (congestive heart failure) Endocarditis History of alcohol use Raynauds syndrome Tobacco abuse - Surgical History Surgical History: Surgical History (Last Reviewed 06/11/18 @ 09:12 by Milagro Marquez) H/O aortic valve replacement (Acute) History of cholecystectomy (Acute) H/O: knee surgery History of lung surgery Hx of CABG Previous back surgery - Family History Family History: Family History (Last Reviewed 06/15/18 @ 07:54 by Robin Miranda) Father Family history of cancer Mother Family history of diabetes mellitus Mother Family history of breast cancer - Tobacco History Second Hand Smoke Exposure: Yes Tobacco Use In Past 30 Days: Yes (states he quit 1 week ago.) Smoking Status: Former smoker Tobacco Type: Cigarettes - Alcohol History How Often Do You Have a Drink Containing Alcohol: Never - Substance Use History Substance History: Past History - Substance Use Type Alcohol Status: Early Remission Route Used: By Mouth Reason for Use: Calm Down, Feels Good Heroin Status: Sustained Remission Route Used: Intravenously Reason for Use: Feels Good Comment: has not used in over 1 year. - Travel History Recent Travel in the [place] Within the Last 8 Weeks: No Recent Travel Out of the Country Within the Last 8 Weeks: No - Immunization History Tetanus Immunization: <5 Years Hx Influenza Vaccine This Season: Yes Medications and Allergies Active Medications: Active Medications Acetaminophen (Tylenol) 650 mg PO UNSCH PRN PRN Reason: SEE LABEL COMMENTS Al Hydroxide/Mg Hydroxide (Milk Of Kayla Liq) 30 ml PO Q12H PRN PRN Reason: Mild Constipation Albuterol (Duoneb Neb (Prn)) 1 ampul NEB Q2HR NEB PRN PRN Reason: DYSPNEA Albuterol (Duoneb Neb ([place])) 1 ampul NEB Q6HR NEB [place] Last Admin: 06/23/18 09:16 Dose: Not Given Bisacodyl (Dulcolax Supp) 10 mg RECTAL DAILY PRN PRN Reason: SEVERE CONSITIPATION Clonidine HCl (Catapres) 0.1 mg PO UNSCH PRN PRN Reason: SEE LABEL COMMENTS Sodium Chloride 3,000 ml/ (Aminocaproic Acid 3,000 mg) 0 ml IRRIGATION TITRATE PRN PRN Reason: TITRATE RATE LIGHT RED OUTPUT Last Admin: 06/23/18 03:17 Dose: 3,000 bulkbaginj Diphenhydramine HCl (Benadryl) 25 mg PO Q4H PRN PRN Reason: pruritis Last Admin: 06/17/18 21:38 Dose: 25 mg Gelatin (Gelfoam 12 Mm/7 Mm Topical) 1 foam TOPICAL PRN PRN PRN Reason: help stop bleeding from site Gentamicin Sulfate (Gentamicin Inj) 20 mg OTHER WITH DIALYSIS PRN PRN Reason: Dwell Gentamycin Lock Last Admin: 06/23/18 09:56 Dose: 20 mg Heparin Sodium (Porcine) (Heparin Inj) 5,000 units SQ Q12HR [place] Last Admin: 06/21/18 08:11 Dose: Not Given Heparin Sodium (Porcine) (Heparin Inj) 8,000 units OTHER WITH DIALYSIS PRN PRN Reason: for machine prime Heparin Sodium (Porcine) (Heparin Inj) 1,000 units OTHER WITH DIALYSIS PRN PRN Reason: Dwell Heparin to Fill Catheter Last Admin: 06/23/18 09:56 Dose: 1,000 units Heparin Sodium (Porcine) (Heparin Central Flush) 0 unit IV.FLUSH DAILY [place] Last Admin: 06/23/18 08:47 Dose: 500 unit Heparin Sodium (Porcine) (Heparin Central Flush) 0 unit IV.FLUSH PRN PRN PRN Reason: Flush each lumen Heparin Sodium (Porcine) (Heparin Central Flush) 0 unit IV.FLUSH DAILY PRN PRN Reason: SEE DOSE INSTRUCTIONS Heparin Sodium (Porcine) (Heparin Central Flush) 0 unit IV.FLUSH DAILY PRN PRN Reason: SEE DOSE INSTRUCTIONS Albumin Human (Flexbumin 25% Inj) 100 mls @ 60 mls/hr IV.SIG WITH DIALYSIS PRN PRN Reason: hypotension / volume replace Last Infusion: 06/23/18 10:08 Dose: Infused Sodium Chloride (Ns Inj) 1,000 mls @ 0 mls/hr OTHER .Q0M PRN PRN Reason: for prime and rinse back Last Infusion: 06/21/18 06:35 Dose: Infused Sodium Chloride (Ns Inj) 1,000 mls @ 200 mls/hr OTHER .Q5H PRN PRN Reason: for dialyzer flush PRN Sodium Chloride (Ns Inj) 1,000 mls @ 0 mls/hr IV.CONT .Q0M PRN PRN Reason: hypotension / volume replace Sodium Chloride (Ns Inj) 500 mls @ 0 mls/hr IV.SIG BOLUS [facility] Last Infusion: 06/10/18 07:31 Dose: Infused Vancomycin HCl 1,000 mg/ (Sodium Chloride) 250 mls @ 250 mls/hr IV.SIG WITH DIALYSIS [place] Lactulose (Lactulose Liq) 30 ml PO BID [facility] Last Admin: 06/23/18 08:47 Dose: 30 ml Mannitol (Mannitol Inj) 12.5 gm IV.PUSH UNSCH PRN PRN Reason: hypotension / volume replace Metoprolol Tartrate (Lopressor) 50 mg PO BID [facility] Last Admin: 06/23/18 08:47 Dose: 50 mg Metoprolol Tartrate (Lopressor Inj) 2.5 mg IV.PUSH Q6H PRN PRN Reason: TACHYCARDIA GREATER THAN 120 Midodrine (Proamatine) 10 mg PO TID@0700,1200,1700 [facility] Last Admin: 06/23/18 06:36 Dose: 10 mg Morphine Sulfate (Msir) 15 mg PO Q6H PRN PRN Reason: Pain 5-10 Nitroglycerin (Nitrostat Sl) 0.4 mg SL Q5M PRN PRN Reason: CHEST PAIN Nystatin (Mycostatin Powder) 1 applicatio TOPICAL QID [facility] Last Admin: 06/23/18 08:47 Dose: 1 applicatio Ondansetron HCl (Zofran Inj) 4 mg IV.PUSH Q6H PRN PRN Reason: NAUSEA OR VOMITING Last Admin: 06/19/18 04:22 Dose: 4 mg Ondansetron HCl (Zofran Odt) 4 mg PO Q4H PRN PRN Reason: NAUSEA Last Admin: 06/20/18 02:02 Dose: 4 mg Oxybutynin Chloride (Ditropan) 5 mg PO TID PRN PRN Reason: bladder spasm Oxycodone HCl (Roxicodone) 5 mg PO Q6H PRN PRN Reason: pain 1- 5 Last Admin: 06/23/18 06:36 Dose: 5 mg Oxycodone HCl (Roxicodone) 10 mg PO Q6H PRN PRN Reason: 6-10 pain Last Admin: 06/23/18 00:40 Dose: 10 mg Patient Own: Harvoni (Ledipasvir/Sofosbuvir) 90/400 Tab 0 each PO DAILY [facility] Last Admin: 06/23/18 08:47 Dose: 1 each Pharmacy Profile Note (Vancomycin Consult Pharmacy) 1 each OTHER UNSCH PRN PRN Reason: Pharmacy to dose Rifaximin (Xifaxan) 550 mg PO Q12H [facility] Last Admin: 06/22/18 22:35 Dose: 550 mg Sennosides (Senokot) 17.2 mg PO Q12H PRN PRN Reason: Moderate Constipation Last Admin: 06/18/18 21:40 Dose: 17.2 mg Sodium Chloride (Ns Flush) 5 ml IV.FLUSH PRN PRN PRN Reason: flush each lumen during HD Sodium Chloride (Ns Flush) 0 ml IV.FLUSH DAILY [facility] Last Admin: 06/22/18 08:10 Dose: 2 ml Sodium Chloride (Ns Flush) 0 ml IV.FLUSH PRN PRN PRN Reason: FLUSH AFTER USING IV ACCESS Sodium Chloride (Ns Flush) 0 ml IV.FLUSH PRN PRN PRN Reason: SEE DOSE INSTRUCTIONS Sodium Chloride (Ns Flush) 0 ml IV.FLUSH PRN PRN PRN Reason: SEE DOSE INSTRUCTIONS Tamsulosin HCl (Flomax) 0.4 mg PO DAILY [facility] Last Admin: 06/10/18 08:37 Dose: 0.4 mg Torsemide (Demadex) 20 mg PO BID [facility] Last Admin: 06/23/18 08:46 Dose: 20 mg Allergies Allergy/AdvReac Type Severity Reaction Status Date / Time erythromycin base Allergy Severe HIVES Verified 05/29/18 16:34 fenoprofen Allergy Severe HIVES Verified 05/29/18 16:34 Home Medications Medication Instructions Recorded Confirmed Type aspirin 325 mg PO DAILY 04/06/18 05/29/18 History atenolol 50 mg PO DAILY 04/27/18 05/29/18 History furosemide [Lasix] 40 mg PO DAILY 05/01/18 05/29/18 History ledipasvir-sofosbuvir [Harvoni] 1 tab PO QAM 05/23/18 05/29/18 History Exam Vital signs: Vital Signs 06/22/18 16:24 06/22/18 16:53 06/22/18 20:00 Temperature 98.6 F 97.8 F Pulse Rate 64 74 64 Respiratory Rate 17 18 17 Blood Pressure 119/80 103/61 Pulse Oximetry 100 06/22/18 20:06 06/23/18 00:00 06/23/18 03:34 Temperature 98.3 F Pulse Rate 64 65 63 Respiratory Rate 17 17 15 Blood Pressure 103/51 L Pulse Oximetry 98 06/23/18 04:00 06/23/18 08:00 Temperature 97.5 F L 98.6 F Pulse Rate 65 72 Respiratory Rate 17 18 Blood Pressure 112/49 L 105/74 Pulse Oximetry 99 95 Intake & Output 06/22/18 06/23/18 06/23/18 18:59 06:59 18:59 Intake Total 880 / 880 615 / 615 Output Total 100 / 100 3500 / 3500 Balance 780 / 780 -2885 / -2885 Weight 100 kg Intake: IV 615 / 615 Flexbumin 25% Inj 100 ML @ 60 100 / 100 mls/hr IV.SIG WITH DIALYSIS PRN Rx#:[id number] Vancomycin Inj 1,500 MG In NS 515 / 515 Inj 500 ML @ 250 mls/hr IV.SIG WITH DIALYSIS ONE Rx#:[id number] Oral 880 / 880 Output: Urine 100 / 100 Hemodialysis Amount 3500 / 3500 Other: Bladder Irrigation Fluid - Amount Instilled Indwelling Urethral Catheter 5,500 Bladder Irrigation Fluid - Amount Drained Indwelling Urethral Catheter 6,150 Date of Last Bowel Movement 06/21/18 06/23/18 # Bowel Movements 1 1 Narrative: Physical Examination GENERAL: Patient is a well-nourished, well-developed male, awake and alert, not in respiratory distress. SKIN: Cool and dry. No generalized rash, no ecchymoses and no evidence of embolic lesions. HEAD: Atraumatic. Normocephalic. No temporal wasting, or tenderness. EYES: Markle conjunctiva. No petechia or hemorrhage. Pupils equal, round and reactive to light. Extraocular movements full and intact. No scleral icterus. No injection or drainage. EARS, NOSE AND THROAT: Nose without bleeding or purulent nasal discharge. No sinus tenderness. Mucous membranes pink and moist. No oral lesions noted. No exudate. No oral thrush. NECK: Trachea midline. Supple and not tender, no meningeal signs. Permacath site looks ok CARDIOVASCULAR: Regular rate and rhythm. has systolic murmur RPSB RESPIRATORY: Clear to auscultation. Breath sounds equal bilaterally. No rales , wheezing or rhonchi. ABDOMEN: Soft, non-tender, nondistended. Bowel sounds present and normoactive. No guarding. No rebound. No organomegaly. EXTREMITIES: No clubbing, cyanosi. Has some pitting edema. RUE - has edema and some induration, no palpable cord felt, has good ROM, intensity of redness better after elevation. No joint effusion, has good ROM. No calf tenderness. NEUROLOGICAL: Awake and alert. Cranial nerves grossly intact. Motor grossly within normal limits. PSYCHIATRIC: Normal affect, calm and cooperative. LINE: No evidence of infection : Ureña in place, with hematuria, getting CBI Results - Labs CBC & Chem 7: 06/21/18 19:23 06/22/18 05:19 Labs: Laboratory Results - last 24 hr 06/22/18 06/22/18 14:43 16:51 POC Glucose 81 Total Creatine Kinase 76 - Imaging Impressions Elbow CT 06/22/18 00:00 CONCLUSION: 1. Moderate anasarca with possible cellulitis around the elbow. No acute bony abnormality. No discrete or drainable fluid collections are identified. 2. Moderate size right pleural effusion. Assessment and Plan - Plan Impression Cellulitis RUE, seems to be improving - on IV vancomycin Hepatorenal syndrome - started HD 06/06 Liver cirrhosis, Hep C S/P AVR, bicuspid AV Recommendation Continue IV vanco - will give with HD Continue elevation of arm, RUE Getting HD which will help with his anasarca Monitor progress I will follow along with you Thank you for this consultation
[2018-06-23] MEDS ORDERED: Vancomycin Inj 1 GM/200 ML PIGGYBACK IV.SIG ONE (14:45)
[2018-06-23] MEDS ORDERED: Vancomycin Inj 1,000 MG in Sodium Chlor 0.9% Inj 250 ML IV.SIG ONE (15:00)
--- NOTE | 2018-06-23 17:53 | P.PN ---
Subjective Interval history: cancel duplicate Physical Exam Vital signs: Vital Signs 06/22/18 20:00 06/22/18 20:06 06/23/18 00:00 Temperature 97.8 F 98.3 F Pulse Rate 64 64 65 Respiratory Rate 17 17 17 Blood Pressure 103/61 103/51 L Pulse Oximetry 100 98 06/23/18 03:34 06/23/18 04:00 06/23/18 08:00 Temperature 97.5 F L 98.6 F Pulse Rate 63 65 72 Respiratory Rate 15 17 18 Blood Pressure 112/49 L 105/74 Pulse Oximetry 99 95 06/23/18 12:00 06/23/18 16:43 06/23/18 17:20 Temperature 97.7 F Pulse Rate 67 71 Respiratory Rate 18 16 Blood Pressure 122/57 L Pulse Oximetry 98 Intake & Output 06/22/18 06/23/18 06/23/18 18:59 06:59 18:59 Intake Total 880 / 880 615 / 615 Output Total 100 / 100 3500 / 3500 Balance 780 / 780 -2885 / -2885 Weight 100 kg Intake: IV 615 / 615 Flexbumin 25% Inj 100 ML @ 60 100 / 100 mls/hr IV.SIG WITH DIALYSIS PRN Rx#:[id number] Vancomycin Inj 1,500 MG In NS 515 / 515 Inj 500 ML @ 250 mls/hr IV.SIG WITH DIALYSIS ONE Rx#:[id number] Oral 880 / 880 Output: Urine 100 / 100 Hemodialysis Amount 3500 / 3500 Other: Bladder Irrigation Fluid - Amount Instilled Indwelling Urethral Catheter 5,500 Bladder Irrigation Fluid - Amount Drained Indwelling Urethral Catheter 6,150 Date of Last Bowel Movement 06/21/18 06/23/18 # Bowel Movements 1 1 Narrative: GENERAL: Pleasant 58 yo male, with anasarca. Alert, Oriented x 3, appears in NAD. SKIN: Warm and dry. Anasarca improved . Right arm is more swollen and there is redness and more tenderness to palpation. CARDIOVASCULAR: Regular rate and rhythm without murmurs, gallops, or rubs. S1- S2 no S3 or S4 RESPIRATORY: Breath sounds equal bilaterally. No accessory muscle use. GASTROINTESTINAL: Abdomen distended, nontender to palpation good bowel sounds throughout soft nontender ; jordan inplace hematuria, draining well. MUSCULOSKELETAL: No cyanosis. LESS edema in upper and lower ext. +1 in upper extremity and lower extremity bilaterally. Right arm with edema +2, redness and pain to palpation. Anasarca. BACK: Nontender without obvious deformity. No CVA tenderness. - Urinary Catheter Management Indwelling Urethral Catheter Cath placed during this visit: yes Reason for continuing: Gross Hematuria Insertion date: 06/04/18 Insertion time: 18:15 Results - Labs CBC & Chem 7: 06/21/18 19:23 06/22/18 05:19 - Imaging Impressions Elbow CT 06/22/18 00:00 CONCLUSION: 1. Moderate anasarca with possible cellulitis around the elbow. No acute bony abnormality. No discrete or drainable fluid collections are identified. 2. Moderate size right pleural effusion. - Procedures EXAM DATE: 06/06/2018 4:32 PM EDT AGE/SEX: 58 years / Male INDICATIONS: Patient with history of chronic kidney disease in need of non tunneled dialysis catheter CLINICAL DATA: This is the patient's initial encounter. Patient reports that signs and symptoms have been present for 1 week and indicates a pain score of 8/ 10. MEDICAL/SURGICAL HISTORY: Hepatitis C. Liver cirrhosis, CKD, CAD, A-Fib, HLD, HTN, COPD, PA, CHF, Raynauds syndrome Cholecystectomy. Aortic valve replacement, Knee surgery, CABG, Lung surgery, Back surgery COMPARISON: No prior exams available for comparison. FLUORO TIME (min): 0.1 IMAGE SERIES: 1 ACCESS SITE: Right internal jugular vein DEVICE(S): 14 Luxembourgish double lumen X20CM Schon catheter . . PROCEDURE : 1. Ultrasound guided venipuncture. 2. Fluoroscopic guidance. 3. Central line placement. The risks, benefits and alternatives to the procedure were explained and verbal and written consent was obtained. The site was prepped in sterile fashion. Full sterile technique was used, including cap, mask, sterile gloves and gown and a large sterile sheet. Hand hygiene and 2% chlorhexidine prep was utilized per protocol for cutaneous antisepsis with appropriate dry time for site. Sterile gel and sterile probe cover were utilized for ultrasound guidance. The skin and subcutaneous tissues were infiltrated with local anesthetic solution. A suitable site above the vein was selected with ultrasound and fluoroscopic guidance. A small incision was made. The vein was accessed under direct ultrasound visualization using the micropuncture technique. The micropuncture set was exchanged for a 0.035 wire. The tract was dilated. The catheter was advanced into position under direct fluoroscopic visualization, and was advanced with the tip at the junction of the superior vena cava and rt atrium. The catheter was fixed in place with suture and a sterile dressing was applied. The patient tolerated the procedure well and there were no complications. CONCLUSION: 1. Uncomplicated line placement as above. Electronically signed by: Joe Garcia MD 06/07/2018 9:37 AM EDT Undergoing hemodialysis so far on and AND 06-09 Assessment and Plan - Plan Mr. Boogie is a pleasant 58-year-old male with a history of hepatitis C on Harvoni, CKD who was admitted to the hospital after he had a blood work at the [place] which shows hypokalemia and worsening creatinine. Acute on chronic kidney disease Hyperkalemia Hyponatremia -Creatinine 2.5 --> 1.80 --> 1.90 ==> 2.2 ==> 2.9 ==> 3.7 --->4.26--> NOW 3.9 . Continue to improve with HD. His baseline creatinine is about 1.4-1.6. -Is being given Lasix 80 mg IV twice daily as well as Zaroxolyn and ProAmatine -Potassium has improved. -Discussed with Nephrology on 06/03/2018. . -transfer patient to the main hospital. -Continue Midodrine, albumin and Octreotide. -May need at least transient dialysis. REMAINS CONFUSED CHECK AMMONIA NOW AND TOMORROW Acute renal failure status post chemo dialysis catheter placed on Status post hemodialysis on 06-06 and repeat hemodialysis on Hypokalemia replace with potassium bath during hemodialysis WATCH ELECTROLYTES Patient with hepato renal syndrome With azotemia and Creatinine requiring hemodialysis Urine sodium low Patient with hepatorenal syndrome patient with HCV cirrhosis and on transplant list at [place] Vas-Cath replaced 06/15 after patient accidentally pulled vas cath. . Monitor kidney function Paroxysmal Atrial fibrillation -Patient takes Atenolol at home. Continue Metoprolol 25mg BID. -[id number] score 0. Although Aspirin would be beneficial, given his liver cirrhosis, it maybe risky to start Aspirin. -Patient will discuss with his director of engineering after hospitalization. Liver cirrhosis Hepatitis C COAGULOPATHY -Patient is currently on Harvoni. Abdominal ultrasound did not reveal enough ascites to drain. -Patient follows up with [place] with regards to liver transplant. - Morphine for abdominal pain. -Ammonia level is increased will make sure he is on lactulose may have to add rifaximin and increase lactulose to 3 times daily-ammonia level is still increased will monitor Full code. INR is 1.7 due to liver disease. Will start patient on Heparin 5000 unit SQ Q12hrs for DVT prophylaxis. PT AND OT TO EVAL AND TREAT consult pulmonary OXYGEN NEEDED BIPAP AT NIGHT AND FOR NAPS HD PER NEPHROLOGY Pulled central line by accident 06.14 . Nephrology ff if needs more dialysis might need a new line Right arm possible cellulitis ?. Patient with swelling redness and pain of the right arm. Check CBC, CMP. Wound cultures if possible. Consult wound care. Wound care recommend clean soap and water, leave open, use UltraSorb if weeping DC Bactrim. Start IV vanco. Consult ID for further recs for abx/ Continue hemodialysis as patient will anasarca. Keep arm elevated Patient however with more pain erythema and swelling of the right arm not improving , and anasarca otherwise is improving with HD. Check CPK, will consult hand surgeon Consult hand surg for eval for poss compartment sdr , discussed with Dr Osmel Velazquez will eval patient. CT right elbow ordered Gross hematuria traumatic jordan insertion in the setting of elevated INR Urology consulted, seen by Dr Mota, appreciate recommendations Continue CBI with Amicar solution until hematuria resolved. Continue with indwelling Jordan catheter even after hematuria resolved. Patient will require further urologic workup to include cystoscopy when medically stable (this can be performed as an outpatient). WILL NEED FOLLOW UP WITH [place] [facility] AFTER DISCHARGE Code Status: FULL CODE Discussed Condition With: Patient, family at bedside his , nurse Discharge Planning: Plan to DC home with home health. Patient needs HD, so far not cleared by nephrology Anasarca improved with HD Cleared by GI to follow up as OP with GI at [facility] pending improvement and clearance by nephrology Pulled accidentally vas cath on 06/14. IR placed a new vas cath on 06/15 Continue HD per nephrology Right arm swelling, erythema and more pain, check CPK. Consult hand surg for evaluation poss compartment sdr. Plan for CT right arm CT shows cellulitis DC bactrim and start IV vanco . Consult ID for further abx recommendations
[2018-06-24 03:49] LABS: Baso # (Auto) 0.1 th/mm3 (0.0-0.2); Baso % (Auto) 0.8 % (0.0-2.0); Eos # (Auto) 0.4 th/mm3 (0.0-0.4); Eos % (Auto) 5.1 % (0.0-4.0); Hematocrit 24.3 % (39.0-51.0); Hemoglobin 8.4 gm/dL (13.0-17.0); Lymph # (Auto) 0.9 th/mm3 (1.0-4.8); Lymph % (Auto) 11.5 % (9.0-44.0); Mean Corpuscular HGB Conc 34.8 % (32.0-36.0); Mean Corpuscular Hemoglobin 29.7 pg (27.0-34.0); Mean Corpuscular Volume 85.4 fL (80.0-100.0); Mean Platelet Volume 7.5 fL (7.0-11.0); Mono # (Auto) 0.8 th/mm3 (0.0-0.9); Mono % (Auto) 10.6 % (0.0-8.0); Neut # (Auto) 5.5 th/mm3 (1.8-7.7); Platelet Count 191 th/mm3 (150-450); Red Blood Count 2.84 mil/mm3 (4.50-5.90); Red Cell Distribution Width 21.3 % (11.6-17.2); White Blood Count 7.6 th/mm3 (4.0-11.0)
[2018-06-24 04:02] LABS: INR 1.8 Ratio; Prothrombin Time 18.7 sec (9.8-11.6)
[2018-06-24 04:20] LABS: Alanine Aminotransferase 15 U/L (12-78); Albumin 4.3 g/dL (3.4-5.0); Anion Gap 10 meq/L (5-15); Aspartate Aminotransferase 19 U/L (15-37); Blood Urea Nitrogen 24 mg/dL (7-18); Calcium 8.5 mg/dL (8.5-10.1); Carbon Dioxide 29.3 meq/L (21.0-32.0); Chloride 96 meq/L (98-107); Glomerular Filtration Rate 14 mL/min (>89); Glucose,Random 97 mg/dL (74-106); Sodium 135 meq/L (136-145)
[2018-06-24 04:22] LABS: Alkaline Phosphatase 60 U/L (45-117); Total Protein 7.5 g/dL (6.4-8.2)
[2018-06-24] MEDS: Sodium Chloride 0.9% Irr Bag 3,000 ML, Aminocaproic Acid Inj 3,000 MG IRRIGATION PRN ×2 (05:32)
--- NOTE | 2018-06-24 05:40 | XR ---
EXAM DATE: 06/24/2018 4:58 AM EDT AGE/SEX: 58 years / Male INDICATIONS: Shortness of breath. CLINICAL DATA: This is the patient's subsequent encounter. Patient reports that signs and symptoms h ave been present for 2 weeks and indicates a pain score of Nonresponsive. MEDICAL/SURGICAL HISTORY: . Congestive heart failure. Cirrhosis. Chronic obstructive pulmonary disease. A-fib. CAD. Hypertension. Hep C.Hyperlipidemia. Myocardial infarct. Raynaud's syndrome. . Cholecystectomy. CABG. AVR. COMPARISON: [facility] – [place], CHEST 1V SINGLE AP, 06/09/2018. . FINDINGS: Mild patchy parenchymal opacities are seen of both lungs and considerably improved in the interim. Th ere is a tiny right pleural effusion that is also smaller. No pneumothorax. Mild cardiomegaly is stable. Patient has had previous median sternotomy. A tunneled right internal jugular double lumen catheter is now present, distal tip at the atriocaval junction. CONCLUSION: Very mild patchy parenchymal opacities and tiny right pleural effusion, all improved. Electronically signed by: Sivakumar Corley MD 06/24/2018 5:38 AM EDT
[2018-06-24] MEDS ORDERED: Vancomycin Inj 1,000 MG in Sodium Chlor 0.9% Inj 250 ML IV.SIG SCH (09:00)
[2018-06-24] MEDS: Torsemide 20 MG Tablet PO SCH ×2 (09:23→21:48)
[2018-06-24] MEDS: HARVONI PO SCH (09:23)
[2018-06-24] MEDS: Heparin Central Flush 100 UNIT/ML 5 ML Vial IV.FLUSH SCH (09:24)
[2018-06-24] MEDS: Nystatin 100,000 UNITS/GM Powder 15 GM Bottle TOPICAL SCH ×5 (09:25→23:13)
[2018-06-24] MEDS: Metoprolol Tartrate 50 MG Tablet PO SCH ×2 (09:36→21:48)
--- NOTE | 2018-06-24 10:33 | P.PNPL ---
Subjective Interval history: Patient is lying in bed in NAD. s/p HD yesterday. On 2L oxygen. Physical Exam Vital signs: Vital Signs 06/23/18 12:00 06/23/18 16:00 06/23/18 16:43 Temperature 97.7 F 97.5 F L Pulse Rate 67 66 71 Respiratory Rate 18 18 16 Blood Pressure 122/57 L 102/57 L Pulse Oximetry 98 06/23/18 17:20 06/23/18 20:00 06/23/18 21:40 Temperature 98.2 F Pulse Rate 61 72 Respiratory Rate 17 18 Blood Pressure 94/50 L Pulse Oximetry 98 96 06/24/18 00:00 06/24/18 03:55 06/24/18 04:00 Temperature 99.0 F 97.4 F L Pulse Rate 69 75 74 Respiratory Rate 19 17 18 Blood Pressure 104/55 L 98/61 L Pulse Oximetry 97 96 06/24/18 08:00 06/24/18 09:17 Temperature 98.0 F Pulse Rate 70 73 Respiratory Rate 22 16 Blood Pressure 97/55 L Pulse Oximetry 97 95 Intake & Output 06/23/18 06/24/18 06/24/18 18:59 06:59 18:59 Intake Total 1495 / 1495 200 / 200 Output Total 21645 / 70385 Balance -8705 / -8705 200 / 200 Weight 100 kg Intake: IV 615 / 615 Flexbumin 25% Inj 100 ML @ 60 100 / 100 mls/hr IV.SIG WITH DIALYSIS PRN Rx#:[id number] Vancomycin Inj 1,500 MG In NS 515 / 515 Inj 500 ML @ 250 mls/hr IV.SIG WITH DIALYSIS ONE Rx#:[id number] Oral 880 / 880 Bladder Irrigation Fluid - 200 / 200 Amount Retained Indwelling Urethral Catheter 200 / 200 Output: Urine 2900 / 2900 Stool 300 / 300 Hemodialysis Amount 7000 / 7000 Other: Bladder Irrigation Fluid - Amount Instilled Indwelling Urethral Catheter 800 1,000 Bladder Irrigation Fluid - Amount Drained Indwelling Urethral Catheter 6,150 1,200 # Voids 0 Date of Last Bowel Movement 06/23/18 06/23/18 # Bowel Movements 1 1 # Incontinent Bowel Movements 1 - Constitutional no acute distress - Routine HEENT Exam Head: Present: normocephalic, atraumatic Eye: Present: EOMI, PERRL, normal accommodation, conjunctivae pink ENT: Present: mucous membranes moist - Routine Neck Exam Present: supple, full ROM, trachea midline - Routine Respiratory Exam Present: CTA bilaterally - Routine Cardiovascular Exam Present: RRR, S1, S2 - Routine Abdominal Exam Present: soft, normoactive bowel sounds - Routine Extremities Exam Present: edema - Routine Skin Exam Present: intact, erythema, dry Comments: Erythema and edema RUE - Routine Neurological Exam Present: alert, oriented X3, CN II-XII intact - Urinary Catheter Management Indwelling Urethral Catheter Cath placed during this visit: yes Reason for continuing: Gross Hematuria Insertion date: 06/04/18 Insertion time: 18:15 Assessment and Plan - Plan 1) Resp Insuff 2)CRISTIANE 3) Acute on CKD 4)Cirrhosis of Liver 5)Hep C 6) Cellulites RUE 7)Anemia 8)Coagulopathy Plan Continue with oxygen keep sats >92% Bronchodilators, Incentive spirometry BIPAP PRN, CXR today mild patchy parenchymal opacities and tiny right pleural effusion, all improved Abx per ID-On Vanco IV with HD. CT elbow: Moderate anasarca with possible cellulitis around the elbow. No acute bony abnormality. No discrete or drainable fluid collections are identified Monitor renal function, avoid nephrotoxins, s/p HD 06/23 Monitor CBC, coags- INR 1.8 today Continue treatment plan
[2018-06-24] MEDS: rifAXIMin 550 MG Tablet PO SCH (11:13)
--- NOTE | 2018-06-24 13:30 | P.PN ---
Subjective Interval history: No gross hematuria in the Jordan. Says pain has improved significantly. No fever or chills. Also redness in his right arm is improving still with swelling. Pain also improved in his right arm. No fever or chills overnight. No nausea vomiting. Not eating much. Physical Exam Vital signs: Vital Signs 06/23/18 16:00 06/23/18 16:43 06/23/18 17:20 Temperature 97.5 F L Pulse Rate 66 71 Respiratory Rate 18 16 Blood Pressure 102/57 L Pulse Oximetry 98 98 06/23/18 20:00 06/23/18 21:40 06/24/18 00:00 Temperature 98.2 F 99.0 F Pulse Rate 61 72 69 Respiratory Rate 17 18 19 Blood Pressure 94/50 L 104/55 L Pulse Oximetry 96 97 06/24/18 03:55 06/24/18 04:00 06/24/18 08:00 Temperature 97.4 F L 98.0 F Pulse Rate 75 74 70 Respiratory Rate 17 18 22 Blood Pressure 98/61 L 97/55 L Pulse Oximetry 96 97 06/24/18 09:17 06/24/18 12:00 Temperature 97.5 F L Pulse Rate 73 75 Respiratory Rate 16 20 Blood Pressure 108/48 L Pulse Oximetry 95 100 Intake & Output 06/23/18 06/24/18 06/24/18 18:59 06:59 18:59 Intake Total 1495 / 1495 200 / 200 Output Total 56846 / 62813 Balance -8705 / -8705 200 / 200 Weight 100 kg Intake: IV 615 / 615 Flexbumin 25% Inj 100 ML @ 60 100 / 100 mls/hr IV.SIG WITH DIALYSIS PRN Rx#:[id number] Vancomycin Inj 1,500 MG In NS 515 / 515 Inj 500 ML @ 250 mls/hr IV.SIG WITH DIALYSIS ONE Rx#:[id number] Oral 880 / 880 Bladder Irrigation Fluid - 200 / 200 Amount Retained Indwelling Urethral Catheter 200 / 200 Output: Urine 2900 / 2900 Stool 300 / 300 Hemodialysis Amount 7000 / 7000 Other: Bladder Irrigation Fluid - Amount Instilled Indwelling Urethral Catheter 800 1,000 Bladder Irrigation Fluid - Amount Drained Indwelling Urethral Catheter 6,150 1,200 # Voids 0 Date of Last Bowel Movement 06/23/18 06/23/18 06/23/18 # Bowel Movements 1 1 # Incontinent Bowel Movements 1 Narrative: GENERAL: Pleasant 58 yo male, with anasarca. Alert, Oriented x 3, appears in NAD. SKIN: Warm and dry. Anasarca improved. Right arm erythema is improving, still with significant edema, less pain. CARDIOVASCULAR: Regular rate and rhythm without murmurs, gallops, or rubs. S1- S2 no S3 or S4 RESPIRATORY: Breath sounds equal bilaterally. No accessory muscle use. GASTROINTESTINAL: Abdomen distended, nontender to palpation good bowel sounds throughout soft nontender MUSCULOSKELETAL: No cyanosis. LESS edema in upper and lower ext. +1 in upper extremity and lower extremity bilaterally. Right arm with edema +2, redness and pain to palpation. Anasarca. BACK: Nontender without obvious deformity. No CVA tenderness. - Urinary Catheter Management Indwelling Urethral Catheter Cath placed during this visit: yes Reason for continuing: Gross Hematuria Insertion date: 06/04/18 Insertion time: 18:15 Results - Labs CBC & Chem 7: 06/24/18 03:32 06/24/18 03:32 Laboratory Results - last 24 hr 06/24/18 06/24/18 06/24/18 03:32 03:32 03:32 WBC 7.6 RBC 2.84 L Hgb 8.4 L Hct 24.3 L MCV 85.4 MCH 29.7 MCHC 34.8 RDW 21.3 H Plt Count 191 D MPV 7.5 Neut % (Auto) 72.0 H Lymph % (Auto) 11.5 Reynolds % (Auto) 10.6 H Eos % (Auto) 5.1 H Baso % (Auto) 0.8 Neut # (Auto) 5.5 Lymph # (Auto) 0.9 L Reynolds # (Auto) 0.8 Eos # (Auto) 0.4 Baso # (Auto) 0.1 WBC Differential . Differential Comment Auto diff final PT 18.7 H INR 1.8 Sodium 135 L Potassium 4.0 Chloride 96 L Carbon Dioxide 29.3 Anion Gap 10 BUN 24 H Creatinine 4.25 H Estimated GFR 14 L Random Glucose 97 Calcium 8.5 Total Bilirubin 1.8 H AST 19 ALT 15 Alkaline Phosphatase 60 Total Protein 7.5 Albumin 4.3 - Imaging Impressions Chest X-Ray 06/24/18 00:00 CONCLUSION: Very mild patchy parenchymal opacities and tiny right pleural effusion, all improved. - Procedures EXAM DATE: 06/06/2018 4:32 PM EDT AGE/SEX: 58 years / Male INDICATIONS: Patient with history of chronic kidney disease in need of non tunneled dialysis catheter CLINICAL DATA: This is the patient's initial encounter. Patient reports that signs and symptoms have been present for 1 week and indicates a pain score of 8/ 10. MEDICAL/SURGICAL HISTORY: Hepatitis C. Liver cirrhosis, CKD, CAD, A-Fib, HLD, HTN, COPD, DC, CHF, Raynauds syndrome Cholecystectomy. Aortic valve replacement, Knee surgery, CABG, Lung surgery, Back surgery COMPARISON: No prior exams available for comparison. FLUORO TIME (min): 0.1 IMAGE SERIES: 1 ACCESS SITE: Right internal jugular vein DEVICE(S): 14 [place] double lumen X20CM Schon catheter . . PROCEDURE : 1. Ultrasound guided venipuncture. 2. Fluoroscopic guidance. 3. Central line placement. The risks, benefits and alternatives to the procedure were explained and verbal and written consent was obtained. The site was prepped in sterile fashion. Full sterile technique was used, including cap, mask, sterile gloves and gown and a large sterile sheet. Hand hygiene and 2% chlorhexidine prep was utilized per protocol for cutaneous antisepsis with appropriate dry time for site. Sterile gel and sterile probe cover were utilized for ultrasound guidance. The skin and subcutaneous tissues were infiltrated with local anesthetic solution. A suitable site above the vein was selected with ultrasound and fluoroscopic guidance. A small incision was made. The vein was accessed under direct ultrasound visualization using the micropuncture technique. The micropuncture set was exchanged for a 0.035 wire. The tract was dilated. The catheter was advanced into position under direct fluoroscopic visualization, and was advanced with the tip at the junction of the superior vena cava and rt atrium. The catheter was fixed in place with suture and a sterile dressing was applied. The patient tolerated the procedure well and there were no complications. CONCLUSION: 1. Uncomplicated line placement as above. Electronically signed by: Joe Garcia MD 06/07/2018 9:37 AM EDT Undergoing hemodialysis so far on 95 and 96 AND 8 Assessment and Plan - Plan Mr. Boogie is a pleasant 58-year-old male with a history of hepatitis C on Harvoni, CKD who was admitted to the hospital after he had a blood work at the [facility] which shows hypokalemia and worsening creatinine. Acute on chronic kidney disease Hyperkalemia Hyponatremia -Creatinine 2.5 --> 1.80 --> 1.90 ==> 2.2 ==> 2.9 ==> 3.7 --->4.26--> NOW 3.9 . Continue to improve with HD. His baseline creatinine is about 1.4-1.6. -Is being given Lasix 80 mg IV twice daily as well as Zaroxolyn and ProAmatine -Potassium has improved. -Discussed with Nephrology on 06/03/2018. . -transfer patient to the main hospital. -Continue Midodrine, albumin and Octreotide. -May need at least transient dialysis. REMAINS CONFUSED CHECK AMMONIA NOW AND TOMORROW Acute renal failure status post chemo dialysis catheter placed on 95 Status post hemodialysis on 06-06 and repeat hemodialysis on 96 Hypokalemia replace with potassium bath during hemodialysis WATCH ELECTROLYTES Patient with hepato renal syndrome With azotemia and Creatinine requiring hemodialysis Urine sodium low Patient with hepatorenal syndrome patient with HCV cirrhosis and on transplant list at [facility] Vas-Cath replaced 06/15 after patient accidentally pulled vas cath. . Monitor kidney function Paroxysmal Atrial fibrillation -Patient takes Atenolol at home. Continue Metoprolol 25mg BID. -[id number] score 0. Although Aspirin would be beneficial, given his liver cirrhosis, it maybe risky to start Aspirin. 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 Liver cirrhosis Hepatitis C COAGULOPATHY -Patient is currently on Harvoni. Abdominal ultrasound did not reveal enough ascites to drain. -Patient follows up with [facility] with regards to liver transplant. - Morphine for abdominal pain. -Ammonia level is increased will make sure he is on lactulose may have to add rifaximin and increase lactulose to 3 times daily- monitor as need ammonia level Full code. INR is 1.7 due to liver disease. Will start patient on Heparin 5000 unit SQ Q12hrs for DVT prophylaxis. PT AND OT TO EVAL AND TREAT consult pulmonary OXYGEN NEEDED BIPAP AT NIGHT AND FOR NAPS HD PER NEPHROLOGY Pulled central line by accident 06.14 . Nephrology ff if needs more dialysis might need a new line Right arm possible cellulitis ?. Patient with swelling redness and pain of the right arm. Check CBC, CMP. Wound cultures if possible. Consult wound care. Wound care recommend clean soap and water, leave open, use UltraSorb if weeping DC Bactrim. Start IV vanco. Consult ID for further recs for abx/ Continue hemodialysis as patient will anasarca. Keep arm elevated Patient however with more pain erythema and swelling of the right arm not improving , and anasarca otherwise is improving with HD. Check CPK, will consult hand surgeon Consult hand surg for eval for poss compartment sdr , discussed with Dr Osmel Velazquez will eval patient. CT right elbow ordered Gross hematuria traumatic jordan insertion in the setting of elevated INR Urology consulted, seen by Dr Mota, appreciate recommendations CBI with Amicar solution, hematuria resolved. Continue with indwelling Jordan catheter even after hematuria resolved per Dr Mota. Patient will require further urologic workup to include cystoscopy when medically stable (this can be performed as an outpatient). WILL NEED FOLLOW UP WITH [facility] AFTER DISCHARGE Code Status: FULL CODE Discussed Condition With: Patient, family at bedside his , nurse Discharge Planning: Plan to DC home with home health. Patient needs HD, so far not cleared by nephrology Anasarca improved with HD Cleared by GI to follow up as OP with GI at [facility] pending improvement and clearance by nephrology Pulled accidentally vas cath on 06/14. IR placed a new vas cath on 06/15 Continue HD per nephrology Right arm swelling, erythema and more pain, check CPK. Consult hand surg for evaluation poss compartment sdr. Plan for CT right arm CT shows cellulitis DC bactrim and started IV vanco . Consult ID for further abx recommendations. Hematuria resolving, will need jordan at [place] and follow up with urology as OP.
--- NOTE | 2018-06-24 15:12 | P.PNID ---
Subjective Remarks: Patient is a 58-year-old male, with history of liver cirrhosis, hepatitis C, chronic kidney disease, per record is on the liver transplant list, follows at the [facility], presented to the hospital after he was instructed to do so because of abnormal blood work. He had an elevated potassium, low sodium, and elevated creatinine. He was evaluated, and subsequently seen by renal and balance wheel facer. He was diagnosed to have hepatorenal syndrome. He was initially in [place] portal range, and he was transferred to the [facility] hospital on June 05 for further renal evaluation. On June 06 he was started on hemodialysis. He has had previous problem with some confusion, and some atrial arrhythmia and those have all been under control. Patient has been getting hemodialysis every Monday, and Saturdays. On June 18, he started complaining of pain in his right upper extremity. Patient initially had anasarca, and does have improved but the right upper extremity swelling became more prominent. There was reportedly an IV infiltration in his right upper extremity. He had a right upper extremity ultrasound which did not show any DVT. He was started on Bactrim on June 19. He continued to have problem, and surgical evaluation was obtained to evaluate for compartment syndrome. There is no evidence of compartment syndrome. Patient had placement of a permacath on June 21, and he was given Ancef and vancomycin for prophylaxis. Patient states that the swelling in his right upper extremity as well as the pain has improved. He has not been febrile. His last CBC was from June 20 and it was a little elevated. Infectious disease consultation has been requested to evaluate the patient. Notes reviewed temps ok CK feels better Tries to elevate RUE as much as he can Had HD yesterday Got vanco dose yesterday Antibiotics: Intermittent vanco Past Medical History: Cirrhosis (Acute) CAD (coronary artery disease) (Acute) Afib (Acute) Hyperlipemia (Acute) H/O: HTN (hypertension) (Acute) COPD (chronic obstructive pulmonary disease) (Acute) Hepatitis C (Acute) Myocardial infarct (Acute) Chest pain (Acute) CHF (congestive heart failure) Endocarditis History of alcohol use Raynauds syndrome Tobacco abuse H/O aortic valve replacement (Acute) History of cholecystectomy (Acute) H/O: knee surgery History of lung surgery Hx of CABG Previous back surgery Allergies/Adverse Reactions: Allergies erythromycin base Allergy (Severe, Verified 05/29/18 16:34) HIVES fenoprofen Allergy (Severe, Verified 05/29/18 16:34) HIVES Objective Vital Signs 06/23/18 16:00 06/23/18 16:43 06/23/18 17:20 Temperature 97.5 F L Pulse Rate 66 71 Respiratory Rate 18 16 Blood Pressure 102/57 L Pulse Oximetry 98 98 06/23/18 20:00 06/23/18 21:40 06/24/18 00:00 Temperature 98.2 F 99.0 F Pulse Rate 61 72 69 Respiratory Rate 17 18 19 Blood Pressure 94/50 L 104/55 L Pulse Oximetry 96 97 06/24/18 03:55 06/24/18 04:00 06/24/18 08:00 Temperature 97.4 F L 98.0 F Pulse Rate 75 74 70 Respiratory Rate 17 18 22 Blood Pressure 98/61 L 97/55 L Pulse Oximetry 96 97 06/24/18 09:17 06/24/18 12:00 Temperature 97.5 F L Pulse Rate 73 75 Respiratory Rate 16 20 Blood Pressure 108/48 L Pulse Oximetry 95 100 Intake & Output 06/23/18 06/24/18 06/24/18 18:59 06:59 18:59 Intake Total 1495 / 1495 200 / 200 Output Total 07640 / 24213 Balance -8705 / -8705 200 / 200 Weight 100 kg Intake: IV 615 / 615 Flexbumin 25% Inj 100 ML @ 60 100 / 100 mls/hr IV.SIG WITH DIALYSIS PRN Rx#:[id number] Vancomycin Inj 1,500 MG In NS 515 / 515 Inj 500 ML @ 250 mls/hr IV.SIG WITH DIALYSIS ONE Rx#:[id number] Oral 880 / 880 Bladder Irrigation Fluid - 200 / 200 Amount Retained Indwelling Urethral Catheter 200 / 200 Output: Urine 2900 / 2900 Stool 300 / 300 Hemodialysis Amount 7000 / 7000 Other: Bladder Irrigation Fluid - Amount Instilled Indwelling Urethral Catheter 800 1,000 Bladder Irrigation Fluid - Amount Drained Indwelling Urethral Catheter 6,150 1,200 # Voids 0 Date of Last Bowel Movement 06/23/18 06/23/18 06/23/18 # Bowel Movements 1 1 # Incontinent Bowel Movements 1 Lab - Hematology Results 06/24/18 03:32 WBC 7.6 RBC 2.84 L Hgb 8.4 L Hct 24.3 L MCV 85.4 MCH 29.7 MCHC 34.8 RDW 21.3 H Plt Count 191 D MPV 7.5 Neut % (Auto) 72.0 H Lymph % (Auto) 11.5 [place] % (Auto) 10.6 H Eos % (Auto) 5.1 H Baso % (Auto) 0.8 Neut # (Auto) 5.5 Lymph # (Auto) 0.9 L [place] # (Auto) 0.8 Eos # (Auto) 0.4 Baso # (Auto) 0.1 WBC Differential . Differential Comment Auto diff final Lab - Chemistry Results 06/22/18 06/22/18 06/24/18 14:43 16:51 03:32 Sodium 135 L Potassium 4.0 Chloride 96 L Carbon Dioxide 29.3 Anion Gap 10 BUN 24 H Creatinine 4.25 H Estimated GFR 14 L POC Glucose 81 Random Glucose 97 Calcium 8.5 Total Bilirubin 1.8 H AST 19 ALT 15 Alkaline Phosphatase 60 Total Creatine Kinase 76 Total Protein 7.5 Albumin 4.3 Imaging: ITS Impressions Abdomen Ultrasound 05/30/18 00:00 CONCLUSION: Perihepatic ascites, insufficient at present to warrant paracentesis Venous Doppler Study 06/18/18 00:00 CONCLUSION: 1. Negative for deep venous thrombosis right upper extremity. Abdomen/Bladder Ultrasound 06/21/18 00:00 CONCLUSION: 1. Unremarkable kidneys and decompressed urinary bladder. 2. Some free fluid within the pelvis. Catheter Placement 06/21/18 00:00 CONCLUSION: 1. Uncomplicated Dialysis catheter placement as above. 2. Of note, patient appears to be extremely volume overloaded with fluid flowing freely from the fresh chest wall incision as well as high central venous pressures making it difficult to maintain hemostasis at the cervical dermatotomy. [facility]. Elbow CT 06/22/18 00:00 CONCLUSION: 1. Moderate anasarca with possible cellulitis around the elbow. No acute bony abnormality. No discrete or drainable fluid collections are identified. 2. Moderate size right pleural effusion. Chest X-Ray 06/24/18 00:00 CONCLUSION: Very mild patchy parenchymal opacities and tiny right pleural effusion, all improved. Physical Exam: GENERAL: awake and alert, not in respiratory distress. SKIN: Cool and dry. No generalized rash HEAD: Atraumatic. Normocephalic. No temporal wasting, or tenderness. EYES: [place] conjunctiva. No petechia or hemorrhage. No scleral icterus. No injection or drainage. EARS, NOSE AND THROAT: Mucous membranes pink and moist. No oral lesions noted. No exudate. No oral thrush. NECK: Trachea midline. Supple and not tender, no meningeal signs. Permacath site looks ok CARDIOVASCULAR: Regular rate and rhythm. has systolic murmur RPSB RESPIRATORY: Clear to auscultation. Breath sounds equal bilaterally. No rales , wheezing or rhonchi. ABDOMEN: Soft, non-tender, nondistended. Bowel sounds present and normoactive. No guarding. No rebound. No organomegaly. EXTREMITIES: No clubbing, cyanosis. Has some pitting edema. RUE - has edema and some induration, no palpable cord felt, has good ROM, intensity of redness better after elevation. No joint effusion, has good ROM. No calf tenderness. NEUROLOGICAL: grossly non-focal. PSYCHIATRIC: Normal affect, calm and cooperative. LINE: No evidence of infection : Ureña in place, with hematuria, getting CBI Assessment and Plan - Plan Impression Cellulitis RUE, seems to be improving - on IV vancomycin Hepatorenal syndrome - started HD 06/06 Liver cirrhosis, Hep C S/P AVR, bicuspid AV Recommendation Continue IV vanco - will give with HD Continue elevation of arm, RUE Getting HD which will help with his anasarca Monitor progress
[2018-06-25] MEDS: rifAXIMin 550 MG Tablet PO SCH ×2 (00:56→11:45)
--- NOTE | 2018-06-25 08:12 | P.PN ---
Subjective Interval history: With hematuria in the Jordan. However says that he does not have any more pain. Right arm swelling and erythema improving. Pain is better controlled. Feels very weak and tired. No nausea or vomiting. Physical Exam Vital signs: Vital Signs 06/24/18 09:17 06/24/18 12:00 06/24/18 16:00 Temperature 97.5 F L 97.9 F Pulse Rate 73 75 68 Respiratory Rate 16 20 22 Blood Pressure 108/48 L 109/60 Pulse Oximetry 95 100 96 06/24/18 20:00 06/24/18 22:05 06/25/18 00:00 Temperature 97.8 F 97.4 F L Pulse Rate 72 72 Respiratory Rate 19 18 Blood Pressure 115/70 112/65 Pulse Oximetry 94 L 98 96 06/25/18 04:00 Temperature 97.6 F Pulse Rate 77 Respiratory Rate 18 Blood Pressure 110/60 Pulse Oximetry 95 Intake & Output 06/24/18 06/25/18 06/25/18 18:59 06:59 18:59 Output Total 1000 / 1000 Balance -1000 / -1000 Weight 99.8 kg Output: Urine Amount (Catheter) 1000 / 1000 Indwelling Urethral Catheter 1000 / 1000 Other: Bladder Irrigation Fluid - Amount Instilled Indwelling Urethral Catheter 500 Bladder Irrigation Fluid - Amount Drained Indwelling Urethral Catheter 5,400 500 Date of Last Bowel Movement 06/23/18 06/23/18 # Bowel Movements 1 Narrative: GENERAL: Pleasant 58 yo male, with anasarca. Alert, Oriented x 3, appears in NAD. SKIN: Warm and dry. Anasarca improved. Right arm erythema is improving, still with significant edema, less erythema and less pain. CARDIOVASCULAR: Regular rate and rhythm without murmurs, gallops, or rubs. S1- S2 no S3 or S4 RESPIRATORY: Breath sounds equal bilaterally. No accessory muscle use. GASTROINTESTINAL: Abdomen distended, nontender to palpation good bowel sounds throughout soft nontender MUSCULOSKELETAL: No cyanosis. Edema in upper and lower ext improving. +1 in upper extremity and lower extremity bilaterally. Right arm with edema +2, redness and pain to palpation. Anasarca improving overall. BACK: Nontender without obvious deformity. No CVA tenderness. - Urinary Catheter Management Indwelling Urethral Catheter Cath placed during this visit: yes Reason for continuing: Gross Hematuria Insertion date: 06/04/18 Insertion time: 18:15 Results - Labs CBC & Chem 7: 06/24/18 03:32 06/24/18 03:32 Laboratory Results - last 24 hr 06/25/18 04:21 Random Vancomycin 10.3 - Procedures EXAM DATE: 06/06/2018 4:32 PM EDT AGE/SEX: 58 years / Male INDICATIONS: Patient with history of chronic kidney disease in need of non tunneled dialysis catheter CLINICAL DATA: This is the patient's initial encounter. Patient reports that signs and symptoms have been present for 1 week and indicates a pain score of 8/ 10. MEDICAL/SURGICAL HISTORY: Hepatitis C. Liver cirrhosis, CKD, CAD, A-Fib, HLD, HTN, COPD, [place], CHF, Raynauds syndrome Cholecystectomy. Aortic valve replacement, Knee surgery, CABG, Lung surgery, Back surgery COMPARISON: No prior exams available for comparison. FLUORO TIME (min): 0.1 IMAGE SERIES: 1 ACCESS SITE: Right internal jugular vein DEVICE(S): 14 [place] double lumen X20CM Schon catheter . . PROCEDURE : 1. Ultrasound guided venipuncture. 2. Fluoroscopic guidance. 3. Central line placement. The risks, benefits and alternatives to the procedure were explained and verbal and written consent was obtained. The site was prepped in sterile fashion. Full sterile technique was used, including cap, mask, sterile gloves and gown and a large sterile sheet. Hand hygiene and 2% chlorhexidine prep was utilized per protocol for cutaneous antisepsis with appropriate dry time for site. Sterile gel and sterile probe cover were utilized for ultrasound guidance. The skin and subcutaneous tissues were infiltrated with local anesthetic solution. A suitable site above the vein was selected with ultrasound and fluoroscopic guidance. A small incision was made. The vein was accessed under direct ultrasound visualization using the micropuncture technique. The micropuncture set was exchanged for a 0.035 wire. The tract was dilated. The catheter was advanced into position under direct fluoroscopic visualization, and was advanced with the tip at the junction of the superior vena cava and rt atrium. The catheter was fixed in place with suture and a sterile dressing was applied. The patient tolerated the procedure well and there were no complications. CONCLUSION: 1. Uncomplicated line placement as above. Electronically signed by: Joe Garcia MD 06/07/2018 9:37 AM EDT Undergoing hemodialysis so far on and AND 06-09 Assessment and Plan - Plan Mr. Boogie is a pleasant 58-year-old male with a history of hepatitis C on Harvoni, CKD who was admitted to the hospital after he had a blood work at the CT which shows hypokalemia and worsening creatinine. Acute on chronic kidney disease Hyperkalemia Hyponatremia -Creatinine 2.5 --> 1.80 --> 1.90 ==> 2.2 ==> 2.9 ==> 3.7 --->4.26--> NOW 3.9 . Continue to improve with HD. His baseline creatinine is about 1.4-1.6. -Is being given Lasix 80 mg IV twice daily as well as Zaroxolyn and ProAmatine -Potassium has improved. -Discussed with Nephrology on 06/03/2018. . -transfer patient to the main hospital. -Continue Midodrine, albumin and Octreotide. -May need at least transient dialysis. REMAINS CONFUSED CHECK AMMONIA NOW AND TOMORROW Acute renal failure status post chemo dialysis catheter placed on Status post hemodialysis on 06-06 and repeat hemodialysis on Hypokalemia replace with potassium bath during hemodialysis WATCH ELECTROLYTES Patient with hepato renal syndrome With azotemia and Creatinine requiring hemodialysis Urine sodium low Patient with hepatorenal syndrome patient with HCV cirrhosis and on transplant list at [place] Vas-Cath replaced 06/15 after patient accidentally pulled vas cath. . Monitor kidney function Paroxysmal Atrial fibrillation -Patient takes Atenolol at home. Continue Metoprolol 25mg BID. -[id number] score 0. Although Aspirin would be beneficial, given his liver cirrhosis, it maybe risky to start Aspirin. 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 Liver cirrhosis Hepatitis C COAGULOPATHY -Patient is currently on Harvoni. Abdominal ultrasound did not reveal enough ascites to drain. -Patient follows up with CT with regards to liver transplant. - Morphine for abdominal pain. -Ammonia level is increased will make sure he is on lactulose may have to add rifaximin and increase lactulose to 3 times daily- monitor as need ammonia level Full code. INR is 1.7 due to liver disease. Will start patient on Heparin 5000 unit SQ Q12hrs for DVT prophylaxis. PT AND OT TO EVAL AND TREAT consult pulmonary OXYGEN NEEDED BIPAP AT NIGHT AND FOR NAPS HD PER NEPHROLOGY Pulled central line by accident 06.14 . Nephrology ff if needs more dialysis might need a new line Right arm possible cellulitis ?. Patient with swelling redness and pain of the right arm. Check CBC, CMP. Wound cultures if possible. Consult wound care. Wound care recommend clean soap and water, leave open, use UltraSorb if weeping DC Bactrim. Start IV vanco. Consult ID for further recs for abx/ Continue hemodialysis as patient will anasarca. Keep arm elevated Patient however with more pain erythema and swelling of the right arm not improving , and anasarca otherwise is improving with HD. Check CPK, will consult hand surgeon Consult hand surg for eval for poss compartment sdr , discussed with Dr Osmel Velazquez will eval patient. CT right elbow ordered Gross hematuria traumatic jordan insertion in the setting of elevated INR Urology consulted, seen by Dr Mota, appreciate recommendations CBI with Amicar solution, hematuria resolved. Continue with indwelling Jordan catheter even after hematuria resolved per Dr Mota. Patient will require further urologic workup to include cystoscopy when medically stable (this can be performed as an outpatient). WILL NEED FOLLOW UP WITH CT CLINIC AFTER DISCHARGE Code Status: FULL CODE Discussed Condition With: Patient, family at bedside his , nurse Discharge Planning: Plan to DC home with home health. Patient needs HD, so far not cleared by nephrology Anasarca improved with HD Cleared by GI to follow up as OP with GI at [facility] pending improvement and clearance by nephrology Pulled accidentally vas cath on 06/14. IR placed a new vas cath on 06/15 Continue HD per nephrology Right arm swelling, erythema and more pain, check CPK. Consult hand surg for evaluation poss compartment sdr. Plan for CT right arm CT shows cellulitis DC bactrim and started IV vanco . Consult ID for further abx recommendations. Hematuria resolving, will need jordan at [place] and follow up with urology as OP.
[2018-06-25] MEDS: Torsemide 20 MG Tablet PO SCH ×2 (08:20→21:16)
[2018-06-25] MEDS: Metoprolol Tartrate 50 MG Tablet PO SCH ×2 (08:20→21:16)
[2018-06-25] MEDS: Nystatin 100,000 UNITS/GM Powder 15 GM Bottle TOPICAL SCH ×4 (08:20→21:18)
[2018-06-25] MEDS: Heparin Central Flush 100 UNIT/ML 5 ML Vial IV.FLUSH SCH (08:21)
[2018-06-25] MEDS: HARVONI PO SCH (08:25)
--- NOTE | 2018-06-25 12:33 | P.PNNP ---
Subjective Interval history: Patient is doing better Physical Exam Vital signs: Vital Signs 06/24/18 16:00 06/24/18 20:00 06/24/18 22:05 Temperature 97.9 F 97.8 F Pulse Rate 68 72 Respiratory Rate 22 19 Blood Pressure 109/60 115/70 Pulse Oximetry 96 94 L 98 06/25/18 00:00 06/25/18 04:00 06/25/18 08:52 Temperature 97.4 F L 97.6 F Pulse Rate 72 77 Respiratory Rate 18 18 Blood Pressure 112/65 110/60 Pulse Oximetry 96 95 97 06/25/18 09:15 06/25/18 09:16 Temperature Pulse Rate 60 Respiratory Rate 20 Blood Pressure Pulse Oximetry 98 Intake & Output 06/24/18 06/25/18 06/25/18 18:59 06:59 18:59 Output Total 1000 / 1000 Balance -1000 / -1000 Weight 99.8 kg Output: Urine Amount (Catheter) 1000 / 1000 Indwelling Urethral Catheter 1000 / 1000 Other: Bladder Irrigation Fluid - Amount Instilled Indwelling Urethral Catheter 500 Bladder Irrigation Fluid - Amount Drained Indwelling Urethral Catheter 5,400 500 Date of Last Bowel Movement 06/23/18 06/23/18 # Bowel Movements 1 Narrative: GENERAL: Pleasant 58 yo male, with anasarca. Alert, Oriented x 3, appears in NAD. SKIN: Warm and dry. Anasarca improved. Right arm erythema is improving, still with significant edema, less pain. CARDIOVASCULAR: Regular rate and rhythm without murmurs, gallops, or rubs. S1- S2 no S3 or S4 RESPIRATORY: Breath sounds equal bilaterally. No accessory muscle use. GASTROINTESTINAL: Abdomen distended, nontender to palpation good bowel sounds throughout soft nontender MUSCULOSKELETAL: No cyanosis. LESS edema in upper and lower ext. +1 in upper extremity and lower extremity bilaterally. Right arm with edema +2, redness and pain to palpation. Anasarca. BACK: Nontender without obvious deformity. No CVA tenderness. - Urinary Catheter Management Indwelling Urethral Catheter Cath placed during this visit: yes Reason for continuing: Gross Hematuria Insertion date: 06/04/18 Insertion time: 18:15 Assessment and Plan - Assessment (1) Acute renal failure superimposed on stage 3 chronic kidney disease Code(s): N17.9 - Acute kidney failure, unspecified; N18.3 - Chronic kidney disease, stage 3 (moderate) Status: Acute (2) Hyponatremia Code(s): E87.1 - Hypo-osmolality and hyponatremia Status: Acute (3) Cirrhosis Code(s): K74.60 - Unspecified cirrhosis of liver Status: Acute - Plan Worsening azotemia: Creatinine was elevated and ended up on hemodialysis Urine sodium low hepatorenal syndrome patient with HCV cirrhosis and on hepatology at [place] Hematuria on bladder irrigation Hemodialysis Monday and Monday Permacath placed there is some recovery of liver functions, transplant referral has to be made by liver specialist This can be done as an outpatient Hemodialysis to continue as outpatient once final discharge set up is complete
--- NOTE | 2018-06-25 14:07 | P.PN ---
Subjective Interval history: ALERT NAD ON O2 NC Physical Exam Vital signs: Vital Signs 06/24/18 16:00 06/24/18 20:00 06/24/18 22:05 Temperature 97.9 F 97.8 F Pulse Rate 68 72 Respiratory Rate 22 19 Blood Pressure 109/60 115/70 Pulse Oximetry 96 94 L 98 06/25/18 00:00 06/25/18 04:00 06/25/18 08:00 Temperature 97.4 F L 97.6 F 98 F Pulse Rate 72 77 78 Respiratory Rate 18 18 18 Blood Pressure 112/65 110/60 132/77 Pulse Oximetry 96 95 96 06/25/18 08:52 06/25/18 09:15 06/25/18 09:16 Temperature Pulse Rate 60 Respiratory Rate 20 Blood Pressure Pulse Oximetry 97 98 06/25/18 12:00 Temperature 98 F Pulse Rate 97 H Respiratory Rate 18 Blood Pressure 114/52 L Pulse Oximetry 97 Intake & Output 06/24/18 06/25/18 06/25/18 18:59 06:59 18:59 Output Total 1000 / 1000 Balance -1000 / -1000 Weight 99.8 kg Output: Urine Amount (Catheter) 1000 / 1000 Indwelling Urethral Catheter 1000 / 1000 Other: Bladder Irrigation Fluid - Amount Instilled Indwelling Urethral Catheter 500 Bladder Irrigation Fluid - Amount Drained Indwelling Urethral Catheter 5,400 500 Date of Last Bowel Movement 06/23/18 06/23/18 # Bowel Movements 1 Narrative: GENERAL: Pleasant 58 yo male, with anasarca. Alert, Oriented x 3, appears in NAD. SKIN: Warm and dry. Anasarca improved. Right arm erythema is improving, still with significant edema, less pain. CARDIOVASCULAR: Regular rate and rhythm without murmurs, gallops, or rubs. S1- S2 no S3 or S4 RESPIRATORY: Breath sounds equal bilaterally. No accessory muscle use. GASTROINTESTINAL: Abdomen distended, nontender to palpation good bowel sounds throughout soft nontender MUSCULOSKELETAL: No cyanosis. LESS edema in upper and lower ext. +1 in upper extremity and lower extremity bilaterally. Right arm with edema +2, redness and pain to palpation. Anasarca. BACK: Nontender without obvious deformity. No CVA tenderness. - Urinary Catheter Management Indwelling Urethral Catheter Cath placed during this visit: yes Reason for continuing: Gross Hematuria Insertion date: 09/03/18 Insertion time: 18:15 Results - Labs CBC & Chem 7: 06/24/18 03:32 06/24/18 03:32 Laboratory Results - last 24 hr 06/25/18 04:21 Random Vancomycin 10.3 - Procedures EXAM DATE: 06/06/2018 4:32 PM EDT AGE/SEX: 58 years / Male INDICATIONS: Patient with history of chronic kidney disease in need of non tunneled dialysis catheter CLINICAL DATA: This is the patient's initial encounter. Patient reports that signs and symptoms have been present for 1 week and indicates a pain score of 8/ 10. MEDICAL/SURGICAL HISTORY: Hepatitis C. Liver cirrhosis, CKD, CAD, A-Fib, HLD, HTN, COPD, [place], CHF, Raynauds syndrome Cholecystectomy. Aortic valve replacement, Knee surgery, CABG, Lung surgery, Back surgery COMPARISON: No prior exams available for comparison. FLUORO TIME (min): 0.1 IMAGE SERIES: 1 ACCESS SITE: Right internal jugular vein DEVICE(S): 14 [place] double lumen X20CM Schon catheter . . PROCEDURE : 1. Ultrasound guided venipuncture. 2. Fluoroscopic guidance. 3. Central line placement. The risks, benefits and alternatives to the procedure were explained and verbal and written consent was obtained. The site was prepped in sterile fashion. Full sterile technique was used, including cap, mask, sterile gloves and gown and a large sterile sheet. Hand hygiene and 2% chlorhexidine prep was utilized per protocol for cutaneous antisepsis with appropriate dry time for site. Sterile gel and sterile probe cover were utilized for ultrasound guidance. The skin and subcutaneous tissues were infiltrated with local anesthetic solution. A suitable site above the vein was selected with ultrasound and fluoroscopic guidance. A small incision was made. The vein was accessed under direct ultrasound visualization using the micropuncture technique. The micropuncture set was exchanged for a 0.035 wire. The tract was dilated. The catheter was advanced into position under direct fluoroscopic visualization, and was advanced with the tip at the junction of the superior vena cava and rt atrium. The catheter was fixed in place with suture and a sterile dressing was applied. The patient tolerated the procedure well and there were no complications. CONCLUSION: 1. Uncomplicated line placement as above. Electronically signed by: Joe Garcia MD 06/07/2018 9:37 AM EDT Undergoing hemodialysis so far on 95 and 96 AND 9-8 Assessment and Plan - Plan RESPIRARY FAILYRE RENAL FAILURE CRISTIANE PLAN O2 NEEDED PAP THERAPY PULM TOILET INCREASE ACTIVITY
[2018-06-26] MEDS: rifAXIMin 550 MG Tablet PO SCH ×3 (00:09→23:29)
[2018-06-26] MEDS ORDERED: Belladonna Alkaloid/Opium 60 MG Supp RECTAL SCH (03:30)
[2018-06-26 05:23] LABS: Baso % (Auto) 0.8 % (0.0-2.0); Eos # (Auto) 0.6 th/mm3 (0.0-0.4); Eos % (Auto) 10.7 % (0.0-4.0); Hemoglobin 8.7 gm/dL (13.0-17.0); Lymph # (Auto) 0.7 th/mm3 (1.0-4.8); Lymph % (Auto) 12.5 % (9.0-44.0); Mean Corpuscular HGB Conc 34.9 % (32.0-36.0); Mean Corpuscular Hemoglobin 29.6 pg (27.0-34.0); Mean Corpuscular Volume 84.8 fL (80.0-100.0); Mean Platelet Volume 7.3 fL (7.0-11.0); Mono # (Auto) 0.7 th/mm3 (0.0-0.9); Neut # (Auto) 3.7 th/mm3 (1.8-7.7); Platelet Count 228 th/mm3 (150-450); Red Blood Count 2.95 mil/mm3 (4.50-5.90); Red Cell Distribution Width 22.2 % (11.6-17.2); White Blood Count 5.7 th/mm3 (4.0-11.0)
[2018-06-26 05:45] LABS: Carbon Dioxide 27.6 meq/L (21.0-32.0); Potassium 4.4 meq/L (3.5-5.1)
[2018-06-26] MEDS: Heparin Central Flush 100 UNIT/ML 5 ML Vial IV.FLUSH SCH (08:24)
[2018-06-26] MEDS: Torsemide 20 MG Tablet PO SCH ×2 (08:24→21:27)
[2018-06-26] MEDS: Nystatin 100,000 UNITS/GM Powder 15 GM Bottle TOPICAL SCH ×4 (08:24→21:27)
[2018-06-26] MEDS: HARVONI PO SCH (08:24)
[2018-06-26] MEDS: Metoprolol Tartrate 50 MG Tablet PO SCH ×2 (09:00→21:27)
--- NOTE | 2018-06-26 11:04 | P.PN ---
Subjective Interval history: ALERT SITTING AT BEDSIDE NAD C/O HEMATURIA Physical Exam Vital signs: Vital Signs 06/25/18 12:00 06/25/18 15:19 06/25/18 16:00 Temperature 98 F 97.8 F Pulse Rate 97 H 95 H 18 L Respiratory Rate 18 18 18 Blood Pressure 114/52 L Pulse Oximetry 97 97 106 H 06/25/18 20:00 06/26/18 00:00 06/26/18 00:48 Temperature 97.8 F 98.3 F Pulse Rate 66 69 Respiratory Rate 17 17 17 Blood Pressure 106/59 L 103/58 L Pulse Oximetry 100 99 06/26/18 04:00 06/26/18 08:57 06/26/18 10:46 Temperature Pulse Rate 77 Respiratory Rate 19 Blood Pressure 102/56 L Pulse Oximetry 96 90 L 95 Intake & Output 06/25/18 06/26/18 06/26/18 18:59 06:59 18:59 Output Total 800 / 800 Balance -800 / -800 Weight 97.1 kg Output: Urine 800 / 800 Other: Bladder Irrigation Fluid - Amount Instilled Indwelling Urethral Catheter 250 Bladder Irrigation Fluid - Amount Drained Indwelling Urethral Catheter 500 Date of Last Bowel Movement 06/25/18 # Bowel Movements 1 Narrative: GENERAL: Pleasant 58 yo male, with anasarca. Alert, Oriented x 3, appears in NAD. SKIN: Warm and dry. Anasarca improved. Right arm erythema is improving, still with significant edema, less erythema and less pain. CARDIOVASCULAR: Regular rate and rhythm without murmurs, gallops, or rubs. S1- S2 no S3 or S4 RESPIRATORY: Breath sounds equal bilaterally. No accessory muscle use. GASTROINTESTINAL: Abdomen distended, nontender to palpation good bowel sounds throughout soft nontender MUSCULOSKELETAL: No cyanosis. Edema in upper and lower ext improving. +1 in upper extremity and lower extremity bilaterally. Right arm with edema +2, redness and pain to palpation. Anasarca improving overall. BACK: Nontender without obvious deformity. No CVA tenderness. - Urinary Catheter Management Indwelling Urethral Catheter Cath placed during this visit: yes Reason for continuing: Gross Hematuria Insertion date: 06/04/18 Insertion time: 18:15 Results - Labs CBC & Chem 7: 06/26/18 04:56 06/26/18 04:56 Laboratory Results - last 24 hr 06/26/18 06/26/18 04:56 04:56 WBC 5.7 RBC 2.95 L Hgb 8.7 L Hct 25.0 L MCV 84.8 MCH 29.6 MCHC 34.9 RDW 22.2 H Plt Count 228 MPV 7.3 Neut % (Auto) 64.0 Lymph % (Auto) 12.5 [place] % (Auto) 12.0 H Eos % (Auto) 10.7 H Baso % (Auto) 0.8 Neut # (Auto) 3.7 Lymph # (Auto) 0.7 L [place] # (Auto) 0.7 Eos # (Auto) 0.6 H Baso # (Auto) 0.0 WBC Differential . Differential Comment Auto diff final Sodium 132 L Potassium 4.4 Chloride 95 L Carbon Dioxide 27.6 Anion Gap 9 BUN 34 H Creatinine 4.52 H Estimated GFR 13 L Random Glucose 96 Calcium 9.0 - Procedures EXAM DATE: 06/06/2018 4:32 PM EDT AGE/SEX: 58 years / Male INDICATIONS: Patient with history of chronic kidney disease in need of non tunneled dialysis catheter CLINICAL DATA: This is the patient's initial encounter. Patient reports that signs and symptoms have been present for 1 week and indicates a pain score of 8/ 10. MEDICAL/SURGICAL HISTORY: Hepatitis C. Liver cirrhosis, CKD, CAD, A-Fib, HLD, HTN, COPD, [place], CHF, Raynauds syndrome Cholecystectomy. Aortic valve replacement, Knee surgery, CABG, Lung surgery, Back surgery COMPARISON: No prior exams available for comparison. FLUORO TIME (min): 0.1 IMAGE SERIES: 1 ACCESS SITE: Right internal jugular vein DEVICE(S): 14 [place] double lumen X20CM Schon catheter . . PROCEDURE : 1. Ultrasound guided venipuncture. 2. Fluoroscopic guidance. 3. Central line placement. The risks, benefits and alternatives to the procedure were explained and verbal and written consent was obtained. The site was prepped in sterile fashion. Full sterile technique was used, including cap, mask, sterile gloves and gown and a large sterile sheet. Hand hygiene and 2% chlorhexidine prep was utilized per protocol for cutaneous antisepsis with appropriate dry time for site. Sterile gel and sterile probe cover were utilized for ultrasound guidance. The skin and subcutaneous tissues were infiltrated with local anesthetic solution. A suitable site above the vein was selected with ultrasound and fluoroscopic guidance. A small incision was made. The vein was accessed under direct ultrasound visualization using the micropuncture technique. The micropuncture set was exchanged for a 0.035 wire. The tract was dilated. The catheter was advanced into position under direct fluoroscopic visualization, and was advanced with the tip at the junction of the superior vena cava and rt atrium. The catheter was fixed in place with suture and a sterile dressing was applied. The patient tolerated the procedure well and there were no complications. CONCLUSION: 1. Uncomplicated line placement as above. Electronically signed by: Joe Garcia MD 06/07/2018 9:37 AM EDT Undergoing hemodialysis so far on 95 and 96 AND 9-8 Assessment and Plan - Plan RESPIRARY FAILYRE RENAL FAILURE CRISTIANE PLAN O2 NEEDED PAP THERAPY PULM TOILET INCREASE ACTIVITY
--- NOTE | 2018-06-26 11:14 | P.PNURO ---
Subjective Patient symptoms today: Contacted by nurse for CBI not functioning well. Patient complains of cramping involving the lower abdomen Objective Vital Signs: Vital Signs 06/25/18 12:00 06/25/18 15:19 06/25/18 16:00 Temperature 98 F 97.8 F Pulse Rate 97 H 95 H 18 L Respiratory Rate 18 18 18 Blood Pressure 114/52 L Pulse Oximetry 97 97 106 H 06/25/18 20:00 06/26/18 00:00 06/26/18 00:48 Temperature 97.8 F 98.3 F Pulse Rate 66 69 Respiratory Rate 17 17 17 Blood Pressure 106/59 L 103/58 L Pulse Oximetry 100 99 06/26/18 04:00 06/26/18 08:57 06/26/18 10:46 Temperature Pulse Rate 77 Respiratory Rate 19 Blood Pressure 102/56 L Pulse Oximetry 96 90 L 95 Intake & Output 06/25/18 06/26/18 06/26/18 18:59 06:59 18:59 Output Total 800 / 800 Balance -800 / -800 Weight 97.1 kg Output: Urine 800 / 800 Other: Bladder Irrigation Fluid - Amount Instilled Indwelling Urethral Catheter 250 Bladder Irrigation Fluid - Amount Drained Indwelling Urethral Catheter 500 Date of Last Bowel Movement 06/25/18 # Bowel Movements 1 Result Diagrams: 06/26/18 04:56 06/26/18 04:56 Procedures: CBI not draining. I proceeded to irrigate the three-way catheter with sterile water with evacuation of several small stringy clots CBI reimplemented with good inflow and outflow Urine only blood-tinged Medications and IVs: Active Medications Generic Name Dose Route Start Last Admin Trade Name Freq PRN Reason Stop Dose Admin Acetaminophen 650 mg 06/05/18 20:24 Tylenol PO UNSCH PRN SEE LABEL COMMENTS Al Hydroxide/Mg Hydroxide 30 ml 05/29/18 18:37 Milk Of Magnesia Liq PO Q12H PRN Mild Constipation Albuterol 1 ampul 06/22/18 12:48 Duoneb Neb (Prn) NEB Q2HR NEB PRN DYSPNEA Albuterol 1 ampul 06/22/18 13:00 06/26/18 08:57 Duoneb Neb ([place]) NEB Not Given Q6HR NEB [place] Bisacodyl 10 mg 05/29/18 18:37 Dulcolax Supp RECTAL DAILY PRN SEVERE CONSITIPATION Clonidine HCl 0.1 mg 06/05/18 20:24 Catapres PO UNSCH PRN SEE LABEL COMMENTS Sodium Chloride 3,000 ml/ 0 ml 06/22/18 21:00 06/24/18 05:32 Aminocaproic Acid 3,000 mg IRRIGATION 3,000 bulkbaginj TITRATE PRN Administration TITRATE RATE LIGHT RED OUTPUT Diphenhydramine HCl 25 mg 06/09/18 21:07 06/25/18 19:24 Benadryl PO 25 mg Q4H PRN Administration pruritis Gelatin 1 foam 06/05/18 20:24 Gelfoam 12 Mm/7 Mm Topical TOPICAL PRN PRN help stop bleeding from site Gentamicin Sulfate 20 mg 06/05/18 20:24 06/23/18 09:56 Gentamicin Inj OTHER 20 mg WITH DIALYSIS PRN Administration Dwell Gentamycin Lock Heparin Sodium (Porcine) 5,000 units 06/04/18 21:00 06/21/18 08:11 Heparin Inj SQ Not Given Q12HR [place] Heparin Sodium (Porcine) 8,000 units 06/05/18 20:24 Heparin Inj OTHER WITH DIALYSIS PRN for machine prime Heparin Sodium (Porcine) 1,000 units 06/05/18 20:24 06/23/18 09:56 Heparin Inj OTHER 1,000 units WITH DIALYSIS PRN Administration Dwell Heparin to Fill Catheter Heparin Sodium (Porcine) 0 unit 06/07/18 09:00 06/26/18 08:24 Heparin Central Flush IV.FLUSH Not Given DAILY [place] Heparin Sodium (Porcine) 0 unit 06/06/18 16:17 Heparin Central Flush IV.FLUSH PRN PRN Flush each lumen Heparin Sodium (Porcine) 0 unit 06/15/18 19:16 Heparin Central Flush IV.FLUSH DAILY PRN SEE DOSE INSTRUCTIONS Heparin Sodium (Porcine) 0 unit 06/21/18 10:05 Heparin Central Flush IV.FLUSH DAILY PRN SEE DOSE INSTRUCTIONS Albumin Human 100 mls @ 60 mls/hr 06/05/18 20:24 06/23/18 10:08 Flexbumin 25% Inj IV.SIG Infused WITH DIALYSIS PRN Infusion hypotension / volume replace Sodium Chloride 1,000 mls @ 0 mls/hr 06/05/18 20:24 06/21/18 06:35 Ns Inj OTHER Infused .Q0M PRN Infusion for prime and rinse back As Directed Sodium Chloride 1,000 mls @ 200 mls/hr 06/05/18 20:24 Ns Inj OTHER .Q5H PRN for dialyzer flush PRN Sodium Chloride 1,000 mls @ 0 mls/hr 06/05/18 20:24 Ns Inj IV.CONT .Q0M PRN hypotension / volume replace As Directed Sodium Chloride 500 mls @ 0 mls/hr 06/10/18 07:00 06/10/18 07:31 Ns Inj IV.SIG Infused BOLUS [place] Infusion Wide Open Vancomycin HCl 1,000 mg/ 250 mls @ 250 mls/hr 06/26/18 08:00 Sodium Chloride IV.SIG WITH DIALYSIS [place] Lactulose 30 ml 06/13/18 21:00 06/26/18 08:24 Lactulose Liq PO 30 ml BID [place] Administration Mannitol 12.5 gm 06/05/18 20:24 Mannitol Inj IV.PUSH UNSCH PRN hypotension / volume replace Metoprolol Tartrate 50 mg 06/06/18 10:46 06/26/18 09:00 Lopressor PO Not Given BID [place] Metoprolol Tartrate 2.5 mg 06/06/18 17:26 Lopressor Inj IV.PUSH Q6H PRN TACHYCARDIA GREATER THAN 120 Midodrine 10 mg 06/03/18 17:21 06/26/18 06:39 Proamatine PO 10 mg TID@0700,1200,1700 [facility] Administration Morphine Sulfate 15 mg 06/10/18 18:18 Msir PO Q6H PRN Pain 5-10 Nitroglycerin 0.4 mg 06/05/18 20:24 Nitrostat Sl SL Q5M PRN CHEST PAIN Nystatin 1 applicatio 05/30/18 13:00 06/26/18 08:24 Mycostatin Powder TOPICAL 1 applicatio QID [place] Administration Ondansetron HCl 4 mg 05/29/18 18:37 06/19/18 04:22 Zofran Inj IV.PUSH 4 mg Q6H PRN Administration NAUSEA OR VOMITING Ondansetron HCl 4 mg 06/02/18 23:38 06/20/18 02:02 Zofran Odt PO 4 mg Q4H PRN Administration NAUSEA Oxybutynin Chloride 5 mg 06/22/18 17:10 06/23/18 14:38 Ditropan PO 5 mg TID PRN Administration bladder spasm Oxycodone HCl 5 mg 06/10/18 18:18 06/23/18 06:36 Roxicodone PO 5 mg Q6H PRN Administration pain 1- 5 Oxycodone HCl 10 mg 06/10/18 18:20 06/26/18 03:34 Roxicodone PO 10 mg Q6H PRN Administration 6-10 pain Patient Own: Harvoni 0 each 05/31/18 09:00 06/26/18 08:24 (Ledipasvir/ PO 1 each Sofosbuvir) 90/400 DAILY [place] Administration Tab Rifaximin 550 mg 06/06/18 11:00 06/26/18 00:09 Xifaxan PO 550 mg Q12H [place] Administration Sennosides 17.2 mg 05/29/18 18:37 06/18/18 21:40 Senokot PO 17.2 mg Q12H PRN Administration Moderate Constipation Sodium Chloride 5 ml 06/05/18 20:24 06/23/18 21:09 Ns Flush IV.FLUSH 5 ml PRN PRN Administration flush each lumen during HD Sodium Chloride 0 ml 06/07/18 09:00 06/26/18 08:24 Ns Flush IV.FLUSH Not Given DAILY [place] Sodium Chloride 0 ml 06/06/18 16:17 Ns Flush IV.FLUSH PRN PRN FLUSH AFTER USING IV ACCESS Sodium Chloride 0 ml 06/15/18 19:16 Ns Flush IV.FLUSH PRN PRN SEE DOSE INSTRUCTIONS Sodium Chloride 0 ml 06/21/18 10:05 Ns Flush IV.FLUSH PRN PRN SEE DOSE INSTRUCTIONS Tamsulosin HCl 0.4 mg 06/04/18 15:15 06/10/18 08:37 Flomax PO 0.4 mg DAILY [place] Administration Torsemide 20 mg 06/02/18 21:00 06/26/18 08:24 Demadex PO 20 mg BID [place] Administration Assessment and Plan - Assessment (1) Urinary retention Code(s): R33.9 - Retention of urine, unspecified Status: Acute (2) Gross hematuria Code(s): R31.0 - Gross hematuria Status: Acute - Plan Urologic impression: 1. Recent development of gross hematuria related to Ureña trauma exacerbated by INR elevation now almost completely resolved. 2. Urinary retention of indeterminate etiology 3. CBI was not functioning properly this morning due to blockage from a few small stringy clots which have now been irrigated out. Recommendations: 1. Taper off CBI. 2. Continue with indwelling Ureña catheter even after hematuria resolved. 3. Patient will require further urologic workup to include cystoscopy when medically stable (this can be performed as an outpatient).
--- NOTE | 2018-06-26 13:30 | P.PNNP ---
Subjective Interval history: Patient seen at hemodialysis CBI was not working properly and Dr. Mota irrigated Ureña catheter now everything is running okay Physical Exam Vital signs: Vital Signs 06/25/18 15:19 06/25/18 16:00 06/25/18 20:00 Temperature 97.8 F 97.8 F Pulse Rate 95 H 18 L 66 Respiratory Rate 18 18 17 Blood Pressure 106/59 L Pulse Oximetry 97 106 H 100 06/26/18 00:00 06/26/18 00:48 06/26/18 04:00 Temperature 98.3 F Pulse Rate 69 77 Respiratory Rate 17 17 19 Blood Pressure 103/58 L 102/56 L Pulse Oximetry 99 96 06/26/18 08:57 06/26/18 10:46 Temperature Pulse Rate Respiratory Rate Blood Pressure Pulse Oximetry 90 L 95 Intake & Output 06/25/18 06/26/18 06/26/18 18:59 06:59 18:59 Output Total 800 / 800 Balance -800 / -800 Weight 97.1 kg Output: Urine 800 / 800 Other: Bladder Irrigation Fluid - Amount Instilled Indwelling Urethral Catheter 250 Bladder Irrigation Fluid - Amount Drained Indwelling Urethral Catheter 500 Date of Last Bowel Movement 06/25/18 # Bowel Movements 1 Narrative: GENERAL: Pleasant 58 yo male, with anasarca. Alert, Oriented x 3, appears in NAD. SKIN: Warm and dry. Anasarca improved. Right arm erythema is improving, still with significant edema, less erythema and less pain. CARDIOVASCULAR: Regular rate and rhythm without murmurs, gallops, or rubs. S1- S2 no S3 or S4 RESPIRATORY: Breath sounds equal bilaterally. No accessory muscle use. GASTROINTESTINAL: Abdomen distended, nontender to palpation good bowel sounds throughout soft nontender MUSCULOSKELETAL: No cyanosis. Edema in upper and lower ext improving. +1 in upper extremity and lower extremity bilaterally. Right arm with edema +2, redness and pain to palpation. Anasarca improving overall. BACK: Nontender without obvious deformity. No CVA tenderness. - Urinary Catheter Management Indwelling Urethral Catheter Cath placed during this visit: yes Reason for continuing: Gross Hematuria Insertion date: 06/04/18 Insertion time: 18:15 Assessment and Plan - Assessment (1) Acute renal failure superimposed on stage 3 chronic kidney disease Code(s): N17.9 - Acute kidney failure, unspecified; N18.3 - Chronic kidney disease, stage 3 (moderate) Status: Acute (2) Hyponatremia Code(s): E87.1 - Hypo-osmolality and hyponatremia Status: Acute (3) Cirrhosis Code(s): K74.60 - Unspecified cirrhosis of liver Status: Acute - Plan Worsening azotemia: Creatinine was elevated and ended up on hemodialysis Urine sodium low hepatorenal syndrome patient with HCV cirrhosis and on hepatology at [facility] Hematuria on bladder irrigation Hemodialysis Monday and Monday Permacath in place, seen during hemodialysis ultrafiltration of 3 L today Monitor blood pressure CBI to be tapered off per urology With outpatient set up there is some recovery of liver functions, transplant referral has to be made by liver specialist This can be done as an outpatient Hemodialysis to continue as outpatient once final discharge set up is complete
[2018-06-26] MEDS: Vancomycin Inj 1,000 MG in Sodium Chlor 0.9% Inj 250 ML IV.SIG SCH (13:42)
[2018-06-26] MEDS: Heparin 10,000 UNITS/10 ML Vial (for IV use) OTHER PRN (13:42)
--- NOTE | 2018-06-26 17:31 | P.PN ---
Subjective Interval history: The patient is seen in bed appears in not acute distress at this time Less pain in his right arm. Still with swelling. Erythema is improving. Says he has at times suprapubic pain and Jordan is leaking at times. Still with hematuria. No fever or chills. More edema today, plan for hemodialysis. Physical Exam Vital signs: Vital Signs 06/25/18 20:00 06/26/18 00:00 06/26/18 00:48 Temperature 97.8 F 98.3 F Pulse Rate 66 69 Respiratory Rate 17 17 17 Blood Pressure 106/59 L 103/58 L Pulse Oximetry 100 99 06/26/18 04:00 06/26/18 08:57 06/26/18 10:46 Temperature Pulse Rate 77 Respiratory Rate 19 Blood Pressure 102/56 L Pulse Oximetry 96 90 L 95 06/26/18 12:00 Temperature 97.5 F L Pulse Rate 61 Respiratory Rate 18 Blood Pressure 99/62 L Pulse Oximetry 93 L Intake & Output 06/25/18 06/26/18 06/26/18 18:59 06:59 18:59 Intake Total 250 / 250 Output Total 800 / 800 4100 / 4100 Balance -800 / -800 -3850 / -3850 Weight 97.1 kg Intake: IV 250 / 250 Vancomycin Inj 1,000 MG In NS 250 / 250 Inj 250 ML @ 250 mls/hr IV.SIG WITH DIALYSIS SHALINI Rx#:[id number] Output: Urine 800 / 800 1100 / 1100 Hemodialysis Amount 3000 / 3000 Other: Bladder Irrigation Fluid - Amount Instilled Indwelling Urethral Catheter 250 Bladder Irrigation Fluid - Amount Drained Indwelling Urethral Catheter 500 Date of Last Bowel Movement 06/25/18 # Bowel Movements 1 - Urinary Catheter Management Indwelling Urethral Catheter Cath placed during this visit: yes Reason for continuing: Gross Hematuria Insertion date: 06/04/18 Insertion time: 18:15 Results - Labs CBC & Chem 7: 06/26/18 04:56 06/26/18 04:56 Laboratory Results - last 24 hr 06/26/18 06/26/18 04:56 04:56 WBC 5.7 RBC 2.95 L Hgb 8.7 L Hct 25.0 L MCV 84.8 MCH 29.6 MCHC 34.9 RDW 22.2 H Plt Count 228 MPV 7.3 Neut % (Auto) 64.0 Lymph % (Auto) 12.5 [place] % (Auto) 12.0 H Eos % (Auto) 10.7 H Baso % (Auto) 0.8 Neut # (Auto) 3.7 Lymph # (Auto) 0.7 L [place] # (Auto) 0.7 Eos # (Auto) 0.6 H Baso # (Auto) 0.0 WBC Differential . Differential Comment Auto diff final Sodium 132 L Potassium 4.4 Chloride 95 L Carbon Dioxide 27.6 Anion Gap 9 BUN 34 H Creatinine 4.52 H Estimated GFR 13 L Random Glucose 96 Calcium 9.0 - Procedures EXAM DATE: 06/06/2018 4:32 PM EDT AGE/SEX: 58 years / Male INDICATIONS: Patient with history of chronic kidney disease in need of non tunneled dialysis catheter CLINICAL DATA: This is the patient's initial encounter. Patient reports that signs and symptoms have been present for 1 week and indicates a pain score of 8/ 10. MEDICAL/SURGICAL HISTORY: Hepatitis C. Liver cirrhosis, CKD, CAD, A-Fib, HLD, HTN, COPD, [place], CHF, Raynauds syndrome Cholecystectomy. Aortic valve replacement, Knee surgery, CABG, Lung surgery, Back surgery COMPARISON: No prior exams available for comparison. FLUORO TIME (min): 0.1 IMAGE SERIES: 1 ACCESS SITE: Right internal jugular vein DEVICE(S): 14 [place] double lumen X20CM Schon catheter . . PROCEDURE : 1. Ultrasound guided venipuncture. 2. Fluoroscopic guidance. 3. Central line placement. The risks, benefits and alternatives to the procedure were explained and verbal and written consent was obtained. The site was prepped in sterile fashion. Full sterile technique was used, including cap, mask, sterile gloves and gown and a large sterile sheet. Hand hygiene and 2% chlorhexidine prep was utilized per protocol for cutaneous antisepsis with appropriate dry time for site. Sterile gel and sterile probe cover were utilized for ultrasound guidance. The skin and subcutaneous tissues were infiltrated with local anesthetic solution. A suitable site above the vein was selected with ultrasound and fluoroscopic guidance. A small incision was made. The vein was accessed under direct ultrasound visualization using the micropuncture technique. The micropuncture set was exchanged for a 0.035 wire. The tract was dilated. The catheter was advanced into position under direct fluoroscopic visualization, and was advanced with the tip at the junction of the superior vena cava and rt atrium. The catheter was fixed in place with suture and a sterile dressing was applied. The patient tolerated the procedure well and there were no complications. CONCLUSION: 1. Uncomplicated line placement as above. Electronically signed by: Joe Garcia MD 06/07/2018 9:37 AM EDT Undergoing hemodialysis so far on and AND 06-09 Assessment and Plan - Plan Mr. Boogie is a pleasant 58-year-old male with a history of hepatitis C on Harvoni, CKD who was admitted to the hospital after he had a blood work at the [place] which shows hypokalemia and worsening creatinine. Acute on chronic kidney disease Hyperkalemia Hyponatremia -Creatinine 2.5 --> 1.80 --> 1.90 ==> 2.2 ==> 2.9 ==> 3.7 --->4.26--> NOW 3.9 . Continue to improve with HD. His baseline creatinine is about 1.4-1.6. -Is being given Lasix 80 mg IV twice daily as well as Zaroxolyn and ProAmatine -Potassium has improved. -Discussed with Nephrology on 06/03/2018. . -transfer patient to the main hospital. -Continue Midodrine, albumin and Octreotide. -May need at least transient dialysis. REMAINS CONFUSED CHECK AMMONIA NOW AND TOMORROW Acute renal failure status post chemo dialysis catheter placed on Status post hemodialysis on 06-06 and repeat hemodialysis on Hypokalemia replace with potassium bath during hemodialysis WATCH ELECTROLYTES Patient with hepato renal syndrome With azotemia and Creatinine requiring hemodialysis Urine sodium low Patient with hepatorenal syndrome patient with HCV cirrhosis and on transplant list at [place] Vas-Cath replaced 06/15 after patient accidentally pulled vas cath. . Monitor kidney function Paroxysmal Atrial fibrillation -Patient takes Atenolol at home. Continue Metoprolol 25mg BID. -[id number] score 0. Although Aspirin would be beneficial, given his liver cirrhosis, it maybe risky to start Aspirin. -Patient will discuss with his floor representative after hospitalization. Liver cirrhosis Hepatitis C COAGULOPATHY -Patient is currently on Harvoni. Abdominal ultrasound did not reveal enough ascites to drain. -Patient follows up with [place] with regards to liver transplant. - Morphine for abdominal pain. -Ammonia level is increased will make sure he is on lactulose may have to add rifaximin and increase lactulose to 3 times daily- monitor as need ammonia level Full code. INR is 1.7 due to liver disease. Will start patient on Heparin 5000 unit SQ Q12hrs for DVT prophylaxis. PT AND OT TO EVAL AND TREAT consult pulmonary OXYGEN NEEDED BIPAP AT NIGHT AND FOR NAPS HD PER NEPHROLOGY Pulled central line by accident 06.14 . Nephrology ff if needs more dialysis might need a new line Right arm possible cellulitis ?. Patient with swelling redness and pain of the right arm. Check CBC, CMP. Wound cultures if possible. Consult wound care. Wound care recommend clean soap and water, leave open, use UltraSorb if weeping DC Bactrim. Start IV vanco. Consult ID for further recs for abx/ Continue hemodialysis as patient will anasarca. Keep arm elevated Patient however with more pain erythema and swelling of the right arm not improving , and anasarca otherwise is improving with HD. Check CPK, will consult hand surgeon Consult hand surg for eval for poss compartment sdr , discussed with Dr Osmel Velazquez will eval patient. CT right elbow ordered Gross hematuria traumatic jordan insertion in the setting of elevated INR Urology consulted, seen by Dr Mota, appreciate recommendations CBI with Amicar solution, hematuria resolved. Continue with indwelling Jordan catheter even after hematuria resolved per Dr Mota. Patient will require further urologic workup to include cystoscopy when medically stable (this can be performed as an outpatient). WILL NEED FOLLOW UP WITH [place] [facility] AFTER DISCHARGE Code Status: FULL CODE Discussed Condition With: Patient, family at bedside his , nurse Discharge Planning: Plan to DC home with home health. Patient needs HD, so far not cleared by nephrology Anasarca improved with HD Cleared by GI to follow up as OP with GI at [facility] pending improvement and clearance by nephrology Pulled accidentally vas cath on 06/14. IR placed a new vas cath on 06/15 Continue HD per nephrology Right arm swelling, erythema and more pain, check CPK. Consult hand surg for evaluation poss compartment sdr. Plan for CT right arm CT shows cellulitis DC bactrim and started IV vanco . Consult ID for further abx recommendations. Hematuria resolving, will need jordan at [place] and follow up with urology as OP.
[2018-06-27 06:50] LABS: Baso # (Auto) 0.1 th/mm3 (0.0-0.2); Baso % (Auto) 2.3 % (0.0-2.0); Eos # (Auto) 0.5 th/mm3 (0.0-0.4); Eos % (Auto) 11.8 % (0.0-4.0); Hematocrit 25.4 % (39.0-51.0); Hemoglobin 8.4 gm/dL (13.0-17.0); Lymph # (Auto) 0.8 th/mm3 (1.0-4.8); Lymph % (Auto) 17.5 % (9.0-44.0); Mean Corpuscular HGB Conc 33.3 % (32.0-36.0); Mean Corpuscular Hemoglobin 28.9 pg (27.0-34.0); Mean Corpuscular Volume 86.8 fL (80.0-100.0); Mean Platelet Volume 7.1 fL (7.0-11.0); Mono # (Auto) 0.6 th/mm3 (0.0-0.9); Mono % (Auto) 13.5 % (0.0-8.0); Neut # (Auto) 2.5 th/mm3 (1.8-7.7); Neut % (Auto) 54.9 % (16.0-70.0); Platelet Count 198 th/mm3 (150-450); Red Blood Count 2.92 mil/mm3 (4.50-5.90); Red Cell Distribution Width 22.2 % (11.6-17.2); White Blood Count 4.5 th/mm3 (4.0-11.0)
[2018-06-27 07:22] LABS: Calcium 8.6 mg/dL (8.5-10.1); Carbon Dioxide 31.6 meq/L (21.0-32.0)
--- NOTE | 2018-06-27 08:33 | P.PN ---
Subjective Interval history: ALERT NAD Physical Exam Vital signs: Vital Signs 06/26/18 08:57 06/26/18 10:46 06/26/18 12:00 Temperature 97.5 F L Pulse Rate 61 Respiratory Rate 18 Blood Pressure 99/62 L Pulse Oximetry 90 L 95 93 L 06/26/18 19:54 06/26/18 23:30 06/27/18 03:02 Temperature 97.5 F L 97.5 F L 97.6 F Pulse Rate 61 65 76 Respiratory Rate 18 18 Blood Pressure 101/56 L 98/52 L 114/70 Pulse Oximetry 93 L 93 L 94 L 06/27/18 06:31 Temperature Pulse Rate Respiratory Rate 18 Blood Pressure Pulse Oximetry Intake & Output 06/26/18 06/27/18 06/27/18 18:59 06:59 18:59 Intake Total 250 / 250 360 / 360 Output Total 4100 / 4100 150 / 150 Balance -3850 / -3850 210 / 210 Weight 97.1 kg Intake: IV 250 / 250 Vancomycin Inj 1,000 MG In NS 250 / 250 Inj 250 ML @ 250 mls/hr IV.SIG WITH DIALYSIS SHALINI Rx#:[id number] Oral 360 / 360 Output: Urine 1100 / 1100 Hemodialysis Amount 3000 / 3000 Urine Amount (Catheter) 150 / 150 Indwelling Urethral Catheter 150 / 150 Other: Bladder Irrigation Fluid - Amount Instilled Indwelling Urethral Catheter 3,450 Bladder Irrigation Fluid - Amount Drained Indwelling Urethral Catheter 3,600 Date of Last Bowel Movement 06/26/18 # Bowel Movements 1 Narrative: GENERAL: Pleasant 58 yo male, with anasarca. Alert, Oriented x 3, appears in NAD. SKIN: Warm and dry. Anasarca improved. Right arm erythema is improving, still with significant edema, less erythema and less pain. CARDIOVASCULAR: Regular rate and rhythm without murmurs, gallops, or rubs. S1- S2 no S3 or S4 RESPIRATORY: Breath sounds equal bilaterally. No accessory muscle use. GASTROINTESTINAL: Abdomen distended, nontender to palpation good bowel sounds throughout soft nontender MUSCULOSKELETAL: No cyanosis. Edema in upper and lower ext improving. +1 in upper extremity and lower extremity bilaterally. Right arm with edema +2, redness and pain to palpation. Anasarca improving overall. BACK: Nontender without obvious deformity. No CVA tenderness. - Urinary Catheter Management Indwelling Urethral Catheter Cath placed during this visit: yes Reason for continuing: Gross Hematuria Insertion date: 06/04/18 Insertion time: 18:15 Results - Labs CBC & Chem 7: 06/27/18 05:52 06/27/18 05:52 Laboratory Results - last 24 hr 06/27/18 06/27/18 05:52 05:52 WBC 4.5 RBC 2.92 L Hgb 8.4 L Hct 25.4 L MCV 86.8 MCH 28.9 MCHC 33.3 RDW 22.2 H Plt Count 198 MPV 7.1 Neut % (Auto) 54.9 Lymph % (Auto) 17.5 [place] % (Auto) 13.5 H Eos % (Auto) 11.8 H Baso % (Auto) 2.3 H Neut # (Auto) 2.5 Lymph # (Auto) 0.8 L [place] # (Auto) 0.6 Eos # (Auto) 0.5 H Baso # (Auto) 0.1 WBC Differential . Differential Comment Auto diff final Sodium 137 Potassium 4.0 Chloride 98 Carbon Dioxide 31.6 Anion Gap 7 BUN 21 H Creatinine 3.50 H Estimated GFR 18 L Random Glucose 104 Calcium 8.6 - Procedures EXAM DATE: 06/06/2018 4:32 PM EDT AGE/SEX: 58 years / Male INDICATIONS: Patient with history of chronic kidney disease in need of non tunneled dialysis catheter CLINICAL DATA: This is the patient's initial encounter. Patient reports that signs and symptoms have been present for 1 week and indicates a pain score of 8/ 10. MEDICAL/SURGICAL HISTORY: Hepatitis C. Liver cirrhosis, CKD, CAD, A-Fib, HLD, HTN, COPD, [place], CHF, Raynauds syndrome Cholecystectomy. Aortic valve replacement, Knee surgery, CABG, Lung surgery, Back surgery COMPARISON: No prior exams available for comparison. FLUORO TIME (min): 0.1 IMAGE SERIES: 1 ACCESS SITE: Right internal jugular vein DEVICE(S): 14 [place] double lumen X20CM Schon catheter . . PROCEDURE : 1. Ultrasound guided venipuncture. 2. Fluoroscopic guidance. 3. Central line placement. The risks, benefits and alternatives to the procedure were explained and verbal and written consent was obtained. The site was prepped in sterile fashion. Full sterile technique was used, including cap, mask, sterile gloves and gown and a large sterile sheet. Hand hygiene and 2% chlorhexidine prep was utilized per protocol for cutaneous antisepsis with appropriate dry time for site. Sterile gel and sterile probe cover were utilized for ultrasound guidance. The skin and subcutaneous tissues were infiltrated with local anesthetic solution. A suitable site above the vein was selected with ultrasound and fluoroscopic guidance. A small incision was made. The vein was accessed under direct ultrasound visualization using the micropuncture technique. The micropuncture set was exchanged for a 0.035 wire. The tract was dilated. The catheter was advanced into position under direct fluoroscopic visualization, and was advanced with the tip at the junction of the superior vena cava and rt atrium. The catheter was fixed in place with suture and a sterile dressing was applied. The patient tolerated the procedure well and there were no complications. CONCLUSION: 1. Uncomplicated line placement as above. Electronically signed by: Joe Garcia MD 06/07/2018 9:37 AM EDT Undergoing hemodialysis so far on 95 and 96 AND 9-8 Assessment and Plan - Plan RESPIRARY FAILYRE RENAL FAILURE CRISTIANE PLAN O2 NEEDED PAP THERAPY PULM TOILET INCREASE ACTIVITY
[2018-06-27] MEDS: Torsemide 20 MG Tablet PO SCH ×2 (08:47→22:13)
[2018-06-27] MEDS: Nystatin 100,000 UNITS/GM Powder 15 GM Bottle TOPICAL SCH ×4 (08:52→22:14)
[2018-06-27] MEDS: Metoprolol Tartrate 50 MG Tablet PO SCH ×2 (09:32→22:14)
[2018-06-27] MEDS: HARVONI PO SCH (09:37)
[2018-06-27] MEDS: Heparin Central Flush 100 UNIT/ML 5 ML Vial IV.FLUSH SCH (09:44)
--- NOTE | 2018-06-27 09:51 | P.PNID ---
Subjective Remarks: Patient is a 58-year-old male, with history of liver cirrhosis, hepatitis C, chronic kidney disease, per record is on the liver transplant list, follows at the [facility], presented to the hospital after he was instructed to do so because of abnormal blood work. He had an elevated potassium, low sodium, and elevated creatinine. He was evaluated, and subsequently seen by renal and advertising rep. He was diagnosed to have hepatorenal syndrome. He was initially in [place] portal range, and he was transferred to the [facility] on June 05 for further renal evaluation. On June 06 he was started on hemodialysis. He has had previous problem with some confusion, and some atrial arrhythmia and those have all been under control. Patient has been getting hemodialysis every Monday, and Saturdays. On June 18, he started complaining of pain in his right upper extremity. Patient initially had anasarca, and does have improved but the right upper extremity swelling became more prominent. There was reportedly an IV infiltration in his right upper extremity. He had a right upper extremity ultrasound which did not show any DVT. He was started on Bactrim on June 19. He continued to have problem, and surgical evaluation was obtained to evaluate for compartment syndrome. There is no evidence of compartment syndrome. Patient had placement of a permacath on June 21, and he was given Ancef and vancomycin for prophylaxis. Patient states that the swelling in his right upper extremity as well as the pain has improved. He has not been febrile. His last CBC was from June 20 and it was a little elevated. Infectious disease consultation has been requested to evaluate the patient. Notes reviewed D/W RN Had HD yesterday Has been having problems with his CBI - not very good output C/O lower abdominal pain RUE feels better Getting IV vanco with HD Antibiotics: Intermittent vanco Past Medical History: Cirrhosis (Acute) CAD (coronary artery disease) (Acute) Afib (Acute) Hyperlipemia (Acute) H/O: HTN (hypertension) (Acute) COPD (chronic obstructive pulmonary disease) (Acute) Hepatitis C (Acute) Myocardial infarct (Acute) Chest pain (Acute) CHF (congestive heart failure) Endocarditis History of alcohol use Raynauds syndrome Tobacco abuse H/O aortic valve replacement (Acute) History of cholecystectomy (Acute) H/O: knee surgery History of lung surgery Hx of CABG Previous back surgery Allergies/Adverse Reactions: Allergies erythromycin base Allergy (Severe, Verified 05/29/18 16:34) HIVES fenoprofen Allergy (Severe, Verified 05/29/18 16:34) HIVES Objective Vital Signs 06/26/18 10:46 06/26/18 12:00 06/26/18 19:54 Temperature 97.5 F L 97.5 F L Pulse Rate 61 61 Respiratory Rate 18 18 Blood Pressure 99/62 L 101/56 L Pulse Oximetry 95 93 L 93 L 06/26/18 23:30 06/27/18 03:02 06/27/18 06:31 Temperature 97.5 F L 97.6 F Pulse Rate 65 76 Respiratory Rate 18 18 Blood Pressure 98/52 L 114/70 Pulse Oximetry 93 L 94 L 06/27/18 08:00 Temperature 98.4 F Pulse Rate 63 Respiratory Rate 18 Blood Pressure 92/54 L Pulse Oximetry 100 Intake & Output 06/26/18 06/27/18 06/27/18 18:59 06:59 18:59 Intake Total 250 / 250 360 / 360 Output Total 4100 / 4100 150 / 150 Balance -3850 / -3850 210 / 210 Weight 97.1 kg Intake: IV 250 / 250 Vancomycin Inj 1,000 MG In NS 250 / 250 Inj 250 ML @ 250 mls/hr IV.SIG WITH DIALYSIS [facility] Rx#:[id number] Oral 360 / 360 Output: Urine 1100 / 1100 Hemodialysis Amount 3000 / 3000 Urine Amount (Catheter) 150 / 150 Indwelling Urethral Catheter 150 / 150 Other: Bladder Irrigation Fluid - Amount Instilled Indwelling Urethral Catheter 3,450 Bladder Irrigation Fluid - Amount Drained Indwelling Urethral Catheter 3,600 Date of Last Bowel Movement 06/26/18 # Bowel Movements 1 Lab - Hematology Results 06/26/18 06/27/18 04:56 05:52 WBC 5.7 4.5 RBC 2.95 L 2.92 L Hgb 8.7 L 8.4 L Hct 25.0 L 25.4 L MCV 84.8 86.8 MCH 29.6 28.9 MCHC 34.9 33.3 RDW 22.2 H 22.2 H Plt Count 228 198 MPV 7.3 7.1 Neut % (Auto) 64.0 54.9 Lymph % (Auto) 12.5 17.5 [place] % (Auto) 12.0 H 13.5 H Eos % (Auto) 10.7 H 11.8 H Baso % (Auto) 0.8 2.3 H Neut # (Auto) 3.7 2.5 Lymph # (Auto) 0.7 L 0.8 L [place] # (Auto) 0.7 0.6 Eos # (Auto) 0.6 H 0.5 H Baso # (Auto) 0.0 0.1 WBC Differential . . Differential Comment Auto diff final Auto diff final Lab - Chemistry Results 06/26/18 06/27/18 04:56 05:52 Sodium 132 L 137 Potassium 4.4 4.0 Chloride 95 L 98 Carbon Dioxide 27.6 31.6 Anion Gap 9 7 BUN 34 H 21 H Creatinine 4.52 H 3.50 H Estimated GFR 13 L 18 L Random Glucose 96 104 Calcium 9.0 8.6 Imaging: ITS Impressions Abdomen Ultrasound 05/30/18 00:00 CONCLUSION: Perihepatic ascites, insufficient at present to warrant paracentesis Venous Doppler Study 06/18/18 00:00 CONCLUSION: 1. Negative for deep venous thrombosis right upper extremity. Abdomen/Bladder Ultrasound 06/21/18 00:00 CONCLUSION: 1. Unremarkable kidneys and decompressed urinary bladder. 2. Some free fluid within the pelvis. Catheter Placement 06/21/18 00:00 CONCLUSION: 1. Uncomplicated Dialysis catheter placement as above. 2. Of note, patient appears to be extremely volume overloaded with fluid flowing freely from the fresh chest wall incision as well as high central venous pressures making it difficult to maintain hemostasis at the cervical dermatotomy. [facility]. Elbow CT 06/22/18 00:00 CONCLUSION: 1. Moderate anasarca with possible cellulitis around the elbow. No acute bony abnormality. No discrete or drainable fluid collections are identified. 2. Moderate size right pleural effusion. Chest X-Ray 06/24/18 00:00 CONCLUSION: Very mild patchy parenchymal opacities and tiny right pleural effusion, all improved. Physical Exam: GENERAL: awake and alert, NAD SKIN: Cool and dry. No generalized rash HEAD: Atraumatic. Normocephalic. No temporal wasting, or tenderness. EYES: [place] conjunctiva. No petechia or hemorrhage. No scleral icterus. No injection or drainage. EARS, NOSE AND THROAT: Mucous membranes pink and moist. No oral lesions noted. No exudate. No oral thrush. NECK: Trachea midline. Supple and not tender, no meningeal signs. Permacath site looks ok CARDIOVASCULAR: Regular rate and rhythm. has systolic murmur RPSB RESPIRATORY: Clear to auscultation. Breath sounds equal bilaterally. No rales , wheezing or rhonchi. ABDOMEN: Soft, nondistended. Tender in suprapubic region. Bowel sounds present and normoactive. No guarding. No rebound. No organomegaly. EXTREMITIES: No clubbing, cyanosis. Has some improving pitting edema. RUE - has edema and some induration, no palpable cord felt, has good ROM, intensity of redness better. No calf tenderness. NEUROLOGICAL: grossly non-focal. PSYCHIATRIC: Normal affect, calm and cooperative. LINE: No evidence of infection : Ureña in place, with hematuria, getting CBI Assessment and Plan - Plan Impression Cellulitis RUE, seems to be improving - on IV vancomycin Hepatorenal syndrome - started HD 06/06 Liver cirrhosis, Hep C S/P AVR, bicuspid AV Hematuria Recommendation Continue IV vanco - will give with HD Continue elevation of arm, RUE Getting HD which will help with his anasarca Monitor progress Urology following for hematuria Give total 10 days IV vanco - give until 07/01 D/W MALAIKA
--- NOTE | 2018-06-27 11:04 | P.PN ---
Subjective Interval history: The patient is in bed he complains of severe pain suprapubic. Discussed with the nurse and Jordan is clogged is not draining anymore. Discussed with Dr. Pedraza urology who recommends removing Jordan and do voiding start voiding trials. Jordan is removed and seems pain is improved. He has no fever or chills. No nausea or vomiting. Encourage physical therapy Physical Exam Vital signs: Vital Signs 06/26/18 12:00 06/26/18 19:54 06/26/18 23:30 Temperature 97.5 F L 97.5 F L 97.5 F L Pulse Rate 61 61 65 Respiratory Rate 18 18 18 Blood Pressure 99/62 L 101/56 L 98/52 L Pulse Oximetry 93 L 93 L 93 L 06/27/18 03:02 06/27/18 06:31 06/27/18 08:00 Temperature 97.6 F 98.4 F Pulse Rate 76 63 Respiratory Rate 18 18 Blood Pressure 114/70 92/54 L Pulse Oximetry 94 L 100 Intake & Output 06/26/18 06/27/18 06/27/18 18:59 06:59 18:59 Intake Total 250 / 250 360 / 360 Output Total 4100 / 4100 150 / 150 Balance -3850 / -3850 210 / 210 Weight 97.1 kg Intake: IV 250 / 250 Vancomycin Inj 1,000 MG In NS 250 / 250 Inj 250 ML @ 250 mls/hr IV.SIG WITH DIALYSIS [facility] Rx#:[id number] Oral 360 / 360 Output: Urine 1100 / 1100 Hemodialysis Amount 3000 / 3000 Urine Amount (Catheter) 150 / 150 Indwelling Urethral Catheter 150 / 150 Other: Bladder Irrigation Fluid - Amount Instilled Indwelling Urethral Catheter 3,450 Bladder Irrigation Fluid - Amount Drained Indwelling Urethral Catheter 3,600 Date of Last Bowel Movement 06/26/18 06/27/18 # Bowel Movements 1 Narrative: GENERAL: Pleasant 58 yo male, with anasarca. Alert and Oriented x 3, appears in NAD. SKIN: Warm and dry. Anasarca improved. Right arm erythema is improving, still with significant edema, less erythema and less pain. CARDIOVASCULAR: Regular rate and rhythm without murmurs, gallops, or rubs. S1- S2 no S3 or S4 RESPIRATORY: Breath sounds equal bilaterally. No accessory muscle use. GASTROINTESTINAL: Abdomen distended, nontender to palpation good bowel sounds throughout soft nontender : Jordan removed, some suprapubic tenderness. Scrotal and penile edema. MUSCULOSKELETAL: No cyanosis. Edema in upper and lower ext improving. +1 in upper extremity and lower extremity bilaterally. Right arm with edema +2, redness and pain to palpation. Anasarca improving overall. BACK: Nontender without obvious deformity. No CVA tenderness. - Urinary Catheter Management Indwelling Urethral Catheter Cath placed during this visit: yes Reason for continuing: Gross Hematuria Insertion date: 06/04/18 Insertion time: 18:15 Results - Labs CBC & Chem 7: 06/27/18 05:52 06/27/18 05:52 Laboratory Results - last 24 hr 06/27/18 06/27/18 05:52 05:52 WBC 4.5 RBC 2.92 L Hgb 8.4 L Hct 25.4 L MCV 86.8 MCH 28.9 MCHC 33.3 RDW 22.2 H Plt Count 198 MPV 7.1 Neut % (Auto) 54.9 Lymph % (Auto) 17.5 [place] % (Auto) 13.5 H Eos % (Auto) 11.8 H Baso % (Auto) 2.3 H Neut # (Auto) 2.5 Lymph # (Auto) 0.8 L [place] # (Auto) 0.6 Eos # (Auto) 0.5 H Baso # (Auto) 0.1 WBC Differential . Differential Comment Auto diff final Sodium 137 Potassium 4.0 Chloride 98 Carbon Dioxide 31.6 Anion Gap 7 BUN 21 H Creatinine 3.50 H Estimated GFR 18 L Random Glucose 104 Calcium 8.6 - Procedures EXAM DATE: 06/06/2018 4:32 PM EDT AGE/SEX: 58 years / Male INDICATIONS: Patient with history of chronic kidney disease in need of non tunneled dialysis catheter CLINICAL DATA: This is the patient's initial encounter. Patient reports that signs and symptoms have been present for 1 week and indicates a pain score of 8/ 10. MEDICAL/SURGICAL HISTORY: Hepatitis C. Liver cirrhosis, CKD, CAD, A-Fib, HLD, HTN, COPD, [place], CHF, Raynauds syndrome Cholecystectomy. Aortic valve replacement, Knee surgery, CABG, Lung surgery, Back surgery COMPARISON: No prior exams available for comparison. FLUORO TIME (min): 0.1 IMAGE SERIES: 1 ACCESS SITE: Right internal jugular vein DEVICE(S): 14 [place] double lumen X20CM Schon catheter . . PROCEDURE : 1. Ultrasound guided venipuncture. 2. Fluoroscopic guidance. 3. Central line placement. The risks, benefits and alternatives to the procedure were explained and verbal and written consent was obtained. The site was prepped in sterile fashion. Full sterile technique was used, including cap, mask, sterile gloves and gown and a large sterile sheet. Hand hygiene and 2% chlorhexidine prep was utilized per protocol for cutaneous antisepsis with appropriate dry time for site. Sterile gel and sterile probe cover were utilized for ultrasound guidance. The skin and subcutaneous tissues were infiltrated with local anesthetic solution. A suitable site above the vein was selected with ultrasound and fluoroscopic guidance. A small incision was made. The vein was accessed under direct ultrasound visualization using the micropuncture technique. The micropuncture set was exchanged for a 0.035 wire. The tract was dilated. The catheter was advanced into position under direct fluoroscopic visualization, and was advanced with the tip at the junction of the superior vena cava and rt atrium. The catheter was fixed in place with suture and a sterile dressing was applied. The patient tolerated the procedure well and there were no complications. CONCLUSION: 1. Uncomplicated line placement as above. Electronically signed by: Joe Garcia MD 06/07/2018 9:37 AM EDT Undergoing hemodialysis so far on and AND 06-09 Assessment and Plan - Plan Mr. Boogie is a pleasant 58-year-old male with a history of hepatitis C on Harvoni, CKD who was admitted to the hospital after he had a blood work at the [facility] which shows hypokalemia and worsening creatinine. Acute on chronic kidney disease Hyperkalemia Hyponatremia -Creatinine 2.5 --> 1.80 --> 1.90 ==> 2.2 ==> 2.9 ==> 3.7 --->4.26--> NOW 3.9 . Continue to improve with HD. His baseline creatinine is about 1.4-1.6. -Is being given Lasix 80 mg IV twice daily as well as Zaroxolyn and ProAmatine -Potassium has improved. -Discussed with Nephrology on 06/03/2018. . -transfer patient to the main hospital. -Continue Midodrine, albumin and Octreotide. -May need at least transient dialysis. REMAINS CONFUSED CHECK AMMONIA NOW AND TOMORROW Acute renal failure status post chemo dialysis catheter placed on 95 Status post hemodialysis on 9-5 and repeat hemodialysis on 96 Hypokalemia replace with potassium bath during hemodialysis WATCH ELECTROLYTES Patient with hepato renal syndrome With azotemia and Creatinine requiring hemodialysis Urine sodium low Patient with hepatorenal syndrome patient with HCV cirrhosis and on transplant list at [facility] Vas-Cath replaced 06/15 after patient accidentally pulled vas cath. . Monitor kidney function Paroxysmal Atrial fibrillation -Patient takes Atenolol at home. Continue Metoprolol 25mg BID. -[id number] score 0. Although Aspirin would be beneficial, given his liver cirrhosis, it maybe risky to start Aspirin. -Patient will discuss with his shear helper after hospitalization. Liver cirrhosis Hepatitis C COAGULOPATHY -Patient is currently on Harvoni. Abdominal ultrasound did not reveal enough ascites to drain. -Patient follows up with [facility] with regards to liver transplant. - Morphine for abdominal pain. -Ammonia level is increased will make sure he is on lactulose may have to add rifaximin and increase lactulose to 3 times daily- monitor as need ammonia level Full code. INR is 1.7 due to liver disease. Will start patient on Heparin 5000 unit SQ Q12hrs for DVT prophylaxis. PT AND OT TO EVAL AND TREAT consult pulmonary OXYGEN NEEDED BIPAP AT NIGHT AND FOR NAPS HD PER NEPHROLOGY Pulled central line by accident 06.14 . Nephrology ff if needs more dialysis might need a new line Right arm possible cellulitis ?. Patient with swelling redness and pain of the right arm. Check CBC, CMP. Wound cultures if possible. Consult wound care. Wound care recommend clean soap and water, leave open, use UltraSorb if weeping DC Bactrim. Cont IV vanco with HD. Consult ID for recs for abx. Improved significantly. Continue hemodialysis as patient will anasarca. Keep arm elevated Patient however with more pain erythema and swelling of the right arm not improving , and anasarca otherwise is improving with HD. Check CPK, will consult hand surgeon Consult hand surg for eval for poss compartment sdr , discussed with Dr Osmel Velazquez will eval patient. CT right elbow ordered Gross hematuria traumatic jordan insertion in the setting of elevated INR Urology consulted, seen by Dr Mota, appreciate recommendations CBI with Amicar solution, hematuria resolved. DC jordan CBI, Staretd voiding trials 06/27. Discussed with Dr Mota appreciate recommendations. Patient will require further urologic workup to include cystoscopy when medically stable (this can be performed as an outpatient). WILL NEED FOLLOW UP WITH [facility] AFTER DISCHARGE Code Status: FULL CODE Discussed Condition With: Patient, family at bedside his , nurse Discharge Planning: Plan to DC home with home health. Patient needs HD, so far not cleared by nephrology Anasarca improved with HD Cleared by GI to follow up as OP with GI at [facility] pending improvement and clearance by nephrology Pulled accidentally vas cath on 06/14. IR placed a new vas cath on 06/15 Continue HD per nephrology Right arm swelling, erythema and more pain, check CPK. Consult hand surg for evaluation poss compartment sdr. Plan for CT right arm CT shows cellulitis DC bactrim and started IV vanco . Consult ID for further abx recommendations. Hematuria resolving, Jordan removed and started voiding trials per DR Mota. Patient needs follow up with urology as OP
[2018-06-27] MEDS: rifAXIMin 550 MG Tablet PO SCH ×2 (11:42→22:13)
--- NOTE | 2018-06-27 15:51 | P.PNURO ---
Subjective Patient symptoms today: Ureña catheter removed approximately 4 hours ago and patient has been able to void spontaneously. He reports passing a small clot and subsequently had adequate flow of urine. He presently denies any suprapubic pain. Objective Vital Signs: Vital Signs 06/26/18 19:54 06/26/18 23:30 06/27/18 03:02 Temperature 97.5 F L 97.5 F L 97.6 F Pulse Rate 61 65 76 Respiratory Rate 18 18 Blood Pressure 101/56 L 98/52 L 114/70 Pulse Oximetry 93 L 93 L 94 L 06/27/18 06:31 06/27/18 08:00 06/27/18 12:00 Temperature 98.4 F 97.8 F Pulse Rate 63 65 Respiratory Rate 18 18 18 Blood Pressure 92/54 L 103/57 L Pulse Oximetry 100 100 06/27/18 12:12 Temperature Pulse Rate Respiratory Rate 18 Blood Pressure Pulse Oximetry Intake & Output 06/26/18 06/27/18 06/27/18 18:59 06:59 18:59 Intake Total 250 / 250 360 / 360 Output Total 4100 / 4100 150 / 150 Balance -3850 / -3850 210 / 210 Weight 97.1 kg Intake: IV 250 / 250 Vancomycin Inj 1,000 MG In NS 250 / 250 Inj 250 ML @ 250 mls/hr IV.SIG WITH DIALYSIS [facility] Rx#:[id number] Oral 360 / 360 Output: Urine 1100 / 1100 Hemodialysis Amount 3000 / 3000 Urine Amount (Catheter) 150 / 150 Indwelling Urethral Catheter 150 / 150 Other: Bladder Irrigation Fluid - Amount Instilled Indwelling Urethral Catheter 3,450 Bladder Irrigation Fluid - Amount Drained Indwelling Urethral Catheter 3,600 Date of Last Bowel Movement 06/26/18 06/27/18 # Bowel Movements 1 Result Diagrams: 06/27/18 05:52 06/27/18 05:52 Other Results: No suprapubic tenderness Procedures: CBI not draining. I proceeded to irrigate the three-way catheter with sterile water with evacuation of several small stringy clots CBI reimplemented with good inflow and outflow Urine only blood-tinged Medications and IVs: Active Medications Generic Name Dose Route Start Last Admin Trade Name Freq PRN Reason Stop Dose Admin Acetaminophen 650 mg 06/05/18 20:24 Tylenol PO UNSCH PRN SEE LABEL COMMENTS Al Hydroxide/Mg Hydroxide 30 ml 05/29/18 18:37 Milk Of Magnesia Liq PO Q12H PRN Mild Constipation Albuterol 1 ampul 06/22/18 12:48 Duoneb Neb (Prn) NEB Q2HR NEB PRN DYSPNEA Bisacodyl 10 mg 05/29/18 18:37 Dulcolax Supp RECTAL DAILY PRN SEVERE CONSITIPATION Clonidine HCl 0.1 mg 06/05/18 20:24 Catapres PO UNSCH PRN SEE LABEL COMMENTS Sodium Chloride 3,000 ml/ 0 ml 06/22/18 21:00 06/24/18 05:32 Aminocaproic Acid 3,000 mg IRRIGATION 3,000 bulkbaginj TITRATE PRN Administration TITRATE RATE LIGHT RED OUTPUT Diphenhydramine HCl 25 mg 06/09/18 21:07 06/26/18 21:29 Benadryl PO 25 mg Q4H PRN Administration pruritis Gelatin 1 foam 06/05/18 20:24 Gelfoam 12 Mm/7 Mm Topical TOPICAL PRN PRN help stop bleeding from site Gentamicin Sulfate 20 mg 06/05/18 20:24 06/26/18 13:42 Gentamicin Inj OTHER 20 mg WITH DIALYSIS PRN Administration Dwell Gentamycin Lock Heparin Sodium (Porcine) 5,000 units 06/04/18 21:00 06/21/18 08:11 Heparin Inj SQ Not Given Q12HR [facility] Heparin Sodium (Porcine) 8,000 units 06/05/18 20:24 Heparin Inj OTHER WITH DIALYSIS PRN for machine prime Heparin Sodium (Porcine) 1,000 units 06/05/18 20:24 06/26/18 13:42 Heparin Inj OTHER 1,000 units WITH DIALYSIS PRN Administration Dwell Heparin to Fill Catheter Heparin Sodium (Porcine) 0 unit 06/07/18 09:00 06/27/18 09:44 Heparin Central Flush IV.FLUSH Not Given DAILY [facility] Heparin Sodium (Porcine) 0 unit 06/06/18 16:17 Heparin Central Flush IV.FLUSH PRN PRN Flush each lumen Heparin Sodium (Porcine) 0 unit 06/15/18 19:16 Heparin Central Flush IV.FLUSH DAILY PRN SEE DOSE INSTRUCTIONS Heparin Sodium (Porcine) 0 unit 06/21/18 10:05 Heparin Central Flush IV.FLUSH DAILY PRN SEE DOSE INSTRUCTIONS Albumin Human 100 mls @ 60 mls/hr 06/05/18 20:24 06/23/18 10:08 Flexbumin 25% Inj IV.SIG Infused WITH DIALYSIS PRN Infusion hypotension / volume replace Sodium Chloride 1,000 mls @ 0 mls/hr 06/05/18 20:24 06/21/18 06:35 Ns Inj OTHER Infused .Q0M PRN Infusion for prime and rinse back As Directed Sodium Chloride 1,000 mls @ 200 mls/hr 06/05/18 20:24 Ns Inj OTHER .Q5H PRN for dialyzer flush PRN Sodium Chloride 1,000 mls @ 0 mls/hr 06/05/18 20:24 Ns Inj IV.CONT .Q0M PRN hypotension / volume replace As Directed Sodium Chloride 500 mls @ 0 mls/hr 06/10/18 07:00 06/10/18 07:31 Ns Inj IV.SIG Infused BOLUS [facility] Infusion Wide Open Vancomycin HCl 1,000 mg/ 250 mls @ 250 mls/hr 06/26/18 08:00 06/26/18 16:07 Sodium Chloride IV.SIG Infused WITH DIALYSIS [facility] Infusion Lactulose 30 ml 06/13/18 21:00 06/27/18 08:47 Lactulose Liq PO 30 ml BID [facility] Administration Mannitol 12.5 gm 06/05/18 20:24 Mannitol Inj IV.PUSH UNSCH PRN hypotension / volume replace Metoprolol Tartrate 50 mg 06/06/18 10:46 06/27/18 09:32 Lopressor PO Not Given BID [facility] Metoprolol Tartrate 2.5 mg 06/06/18 17:26 Lopressor Inj IV.PUSH Q6H PRN TACHYCARDIA GREATER THAN 120 Midodrine 10 mg 06/03/18 17:21 06/27/18 12:56 Proamatine PO 10 mg TID@0700,1200,1700 [facility] Administration Morphine Sulfate 15 mg 06/10/18 18:18 Msir PO Q6H PRN Pain 5-10 Nitroglycerin 0.4 mg 06/05/18 20:24 Nitrostat Sl SL Q5M PRN CHEST PAIN Nystatin 1 applicatio 05/30/18 13:00 06/27/18 12:57 Mycostatin Powder TOPICAL 1 applicatio QID [facility] Administration Ondansetron HCl 4 mg 05/29/18 18:37 06/27/18 07:21 Zofran Inj IV.PUSH 4 mg Q6H PRN Administration NAUSEA OR VOMITING Ondansetron HCl 4 mg 06/02/18 23:38 06/20/18 02:02 Zofran Odt PO 4 mg Q4H PRN Administration NAUSEA Oxybutynin Chloride 5 mg 06/22/18 17:10 06/27/18 11:42 Ditropan PO 5 mg TID PRN Administration bladder spasm Oxycodone HCl 5 mg 06/10/18 18:18 06/27/18 11:42 Roxicodone PO 5 mg Q6H PRN Administration pain 1- 5 Oxycodone HCl 10 mg 06/10/18 18:20 06/26/18 12:24 Roxicodone PO 10 mg Q6H PRN Administration 6-10 pain Patient Own: Harvoni 0 each 05/31/18 09:00 06/27/18 09:37 (Ledipasvir/ PO 1 each Sofosbuvir) 90/400 DAILY [facility] Administration Tab Rifaximin 550 mg 06/06/18 11:00 06/27/18 11:42 Xifaxan PO 550 mg Q12H [facility] Administration Sennosides 17.2 mg 05/29/18 18:37 06/18/18 21:40 Senokot PO 17.2 mg Q12H PRN Administration Moderate Constipation Sodium Chloride 5 ml 06/05/18 20:24 06/23/18 21:09 Ns Flush IV.FLUSH 5 ml PRN PRN Administration flush each lumen during HD Sodium Chloride 0 ml 06/07/18 09:00 06/27/18 09:45 Ns Flush IV.FLUSH Not Given DAILY [facility] Sodium Chloride 0 ml 06/06/18 16:17 Ns Flush IV.FLUSH PRN PRN FLUSH AFTER USING IV ACCESS Sodium Chloride 0 ml 06/15/18 19:16 Ns Flush IV.FLUSH PRN PRN SEE DOSE INSTRUCTIONS Sodium Chloride 0 ml 06/21/18 10:05 Ns Flush IV.FLUSH PRN PRN SEE DOSE INSTRUCTIONS Tamsulosin HCl 0.4 mg 06/04/18 15:15 06/10/18 08:37 Flomax PO 0.4 mg DAILY [facility] Administration Tamsulosin HCl 0.4 mg 06/27/18 11:30 09/26/18 11:47 Flomax PO 0.4 mg DAILY [facility] Administration Torsemide 20 mg 06/02/18 21:00 06/27/18 08:47 Demadex PO 20 mg BID [facility] Administration Assessment and Plan - Assessment (1) Urinary retention Code(s): R33.9 - Retention of urine, unspecified Status: Acute (2) Gross hematuria Code(s): R31.0 - Gross hematuria Status: Acute - Plan Urologic impression: 1. Recent development of gross hematuria related to Ureña trauma exacerbated by INR elevation now almost completely resolved. 2. Recent development urinary retention of indeterminate etiology 3. CBI catheter removed earlier today for voiding trial with success. Recommendations: 1. Continue with tamsulosin 0.4 mg by mouth daily. 2. Nothing further to add at this time 3. If patient continues to void well during present hospitalization, arrange outpatient office follow-up visit within 2-3 weeks after hospital discharge.
--- NOTE | 2018-06-27 17:03 | P.PNNP ---
Subjective Interval history: Patient off CBI and catheter was removed Physical Exam Vital signs: Vital Signs 06/26/18 19:54 06/26/18 23:30 06/27/18 03:02 Temperature 97.5 F L 97.5 F L 97.6 F Pulse Rate 61 65 76 Respiratory Rate 18 18 Blood Pressure 101/56 L 98/52 L 114/70 Pulse Oximetry 93 L 93 L 94 L 06/27/18 06:31 06/27/18 08:00 06/27/18 12:00 Temperature 98.4 F 97.8 F Pulse Rate 63 65 Respiratory Rate 18 18 18 Blood Pressure 92/54 L 103/57 L Pulse Oximetry 100 100 06/27/18 12:12 Temperature Pulse Rate Respiratory Rate 18 Blood Pressure Pulse Oximetry Intake & Output 06/26/18 06/27/18 06/27/18 18:59 06:59 18:59 Intake Total 250 / 250 360 / 360 Output Total 4100 / 4100 150 / 150 Balance -3850 / -3850 210 / 210 Weight 97.1 kg Intake: IV 250 / 250 Vancomycin Inj 1,000 MG In NS 250 / 250 Inj 250 ML @ 250 mls/hr IV.SIG WITH DIALYSIS [facility] Rx#:[id number] Oral 360 / 360 Output: Urine 1100 / 1100 Hemodialysis Amount 3000 / 3000 Urine Amount (Catheter) 150 / 150 Indwelling Urethral Catheter 150 / 150 Other: Bladder Irrigation Fluid - Amount Instilled Indwelling Urethral Catheter 3,450 Bladder Irrigation Fluid - Amount Drained Indwelling Urethral Catheter 3,600 Date of Last Bowel Movement 06/26/18 06/27/18 # Bowel Movements 1 Narrative: GENERAL: Pleasant 58 yo male, with anasarca. Alert, Oriented x 3, appears in NAD. SKIN: Warm and dry. Anasarca improved. Right arm erythema is improving, still with significant edema, less erythema and less pain. CARDIOVASCULAR: Regular rate and rhythm without murmurs, gallops, or rubs. S1- S2 no S3 or S4 RESPIRATORY: Breath sounds equal bilaterally. No accessory muscle use. GASTROINTESTINAL: Abdomen distended, nontender to palpation good bowel sounds throughout soft nontender MUSCULOSKELETAL: No cyanosis. Edema in upper and lower ext improving. +1 in upper extremity and lower extremity bilaterally. Right arm with edema +2, redness and pain to palpation. Anasarca improving overall. BACK: Nontender without obvious deformity. No CVA tenderness. - Urinary Catheter Management Indwelling Urethral Catheter Cath placed during this visit: yes, but has since been removed by the nurse Reason for continuing: Decision to DC catheter Insertion date: 06/04/18 Insertion time: 18:15 Removal date: 06/27/18 Removal time: 11:56 Assessment and Plan - Assessment (1) Acute renal failure superimposed on stage 3 chronic kidney disease Code(s): N17.9 - Acute kidney failure, unspecified; N18.3 - Chronic kidney disease, stage 3 (moderate) Status: Acute (2) Hyponatremia Code(s): E87.1 - Hypo-osmolality and hyponatremia Status: Acute (3) Cirrhosis Code(s): K74.60 - Unspecified cirrhosis of liver Status: Acute - Plan Worsening azotemia: Creatinine was elevated and ended up on hemodialysis Urine sodium low hepatorenal syndrome patient with HCV cirrhosis and on hepatology at [place] Hematuria on bladder irrigation Hemodialysis Monday and Monday Permacath in place, With outpatient set up there is some recovery of liver functions, transplant referral has to be made by liver specialist This can be done as an outpatient Hemodialysis to continue as outpatient once final discharge set up is complete
[2018-06-28 05:34] LABS: Baso # (Auto) 0.1 th/mm3 (0.0-0.2); Baso % (Auto) 1.3 % (0.0-2.0); Eos # (Auto) 0.5 th/mm3 (0.0-0.4); Eos % (Auto) 11.3 % (0.0-4.0); Hematocrit 24.3 % (39.0-51.0); Hemoglobin 8.1 gm/dL (13.0-17.0); Lymph # (Auto) 0.7 th/mm3 (1.0-4.8); Lymph % (Auto) 15.5 % (9.0-44.0); Mean Corpuscular HGB Conc 33.2 % (32.0-36.0); Mean Corpuscular Hemoglobin 28.9 pg (27.0-34.0); Mean Corpuscular Volume 87.2 fL (80.0-100.0); Mean Platelet Volume 7.2 fL (7.0-11.0); Mono # (Auto) 0.6 th/mm3 (0.0-0.9); Mono % (Auto) 13.1 % (0.0-8.0); Neut # (Auto) 2.5 th/mm3 (1.8-7.7); Neut % (Auto) 58.8 % (16.0-70.0); Platelet Count 192 th/mm3 (150-450); Red Blood Count 2.78 mil/mm3 (4.50-5.90); Red Cell Distribution Width 22.4 % (11.6-17.2); White Blood Count 4.3 th/mm3 (4.0-11.0)
[2018-06-28 05:59] LABS: Calcium 8.6 mg/dL (8.5-10.1); Carbon Dioxide 32.5 meq/L (21.0-32.0)
[2018-06-28] MEDS: Torsemide 20 MG Tablet PO SCH ×2 (08:02→20:22)
[2018-06-28] MEDS: Nystatin 100,000 UNITS/GM Powder 15 GM Bottle TOPICAL SCH ×4 (08:03→21:08)
[2018-06-28] MEDS: HARVONI PO SCH (08:03)
[2018-06-28] MEDS: Metoprolol Tartrate 50 MG Tablet PO SCH ×2 (08:09→20:22)
[2018-06-28] MEDS: Heparin Central Flush 100 UNIT/ML 5 ML Vial IV.FLUSH SCH (08:10)
--- NOTE | 2018-06-28 08:14 | P.PN ---
Subjective Interval history: alert no sob appetite good Physical Exam Vital signs: Vital Signs 06/27/18 12:00 06/27/18 12:12 06/27/18 16:00 Temperature 97.8 F 97.9 F Pulse Rate 65 66 Respiratory Rate 18 18 18 Blood Pressure 103/57 L 96/54 L Pulse Oximetry 100 100 06/27/18 17:08 06/27/18 18:16 06/27/18 19:33 Temperature 97.7 F Pulse Rate 74 Respiratory Rate 18 18 Blood Pressure 100/58 L Pulse Oximetry 100 95 06/28/18 00:01 06/28/18 04:00 Temperature 97.9 F 97.9 F Pulse Rate 77 72 Respiratory Rate 18 17 Blood Pressure 103/59 L 104/56 L Pulse Oximetry 100 100 Intake & Output 06/27/18 06/28/18 06/28/18 18:59 06:59 18:59 Intake Total 480 / 480 720 / 720 Output Total 120 / 120 900 / 900 Balance 360 / 360 -180 / -180 Weight 97.1 kg Intake: Oral 480 / 480 720 / 720 Output: Urine 120 / 120 900 / 900 Other: Date of Last Bowel Movement 06/27/18 06/26/18 # Bowel Movements 1 0 Narrative: GENERAL: Pleasant 58 yo male, with anasarca. Alert and Oriented x 3, appears in NAD. SKIN: Warm and dry. Anasarca improved. Right arm erythema is improving, still with significant edema, less erythema and less pain. CARDIOVASCULAR: Regular rate and rhythm without murmurs, gallops, or rubs. S1- S2 no S3 or S4 RESPIRATORY: Breath sounds equal bilaterally. No accessory muscle use. GASTROINTESTINAL: Abdomen distended, nontender to palpation good bowel sounds throughout soft nontender : Ureña removed, some suprapubic tenderness. Scrotal and penile edema. MUSCULOSKELETAL: No cyanosis. Edema in upper and lower ext improving. +1 in upper extremity and lower extremity bilaterally. Right arm with edema +2, redness and pain to palpation. Anasarca improving overall. BACK: Nontender without obvious deformity. No CVA tenderness. - Urinary Catheter Management Indwelling Urethral Catheter Cath placed during this visit: yes, but has since been removed by the nurse Reason for continuing: Gross Hematuria Insertion date: 06/04/18 Insertion time: 18:15 Removal date: 06/27/18 Removal time: 11:56 Results - Labs CBC & Chem 7: 06/28/18 04:35 06/28/18 04:35 Laboratory Results - last 24 hr 06/28/18 06/28/18 04:35 04:35 WBC 4.3 RBC 2.78 L Hgb 8.1 L Hct 24.3 L MCV 87.2 MCH 28.9 MCHC 33.2 RDW 22.4 H Plt Count 192 MPV 7.2 Neut % (Auto) 58.8 Lymph % (Auto) 15.5 [place] % (Auto) 13.1 H Eos % (Auto) 11.3 H Baso % (Auto) 1.3 Neut # (Auto) 2.5 Lymph # (Auto) 0.7 L [place] # (Auto) 0.6 Eos # (Auto) 0.5 H Baso # (Auto) 0.1 WBC Differential . Differential Comment Auto diff final Sodium 135 L Potassium 4.0 Chloride 98 Carbon Dioxide 32.5 H Anion Gap 5 BUN 22 H Creatinine 3.45 H Estimated GFR 18 L Random Glucose 103 Calcium 8.6 - Procedures EXAM DATE: 06/06/2018 4:32 PM EDT AGE/SEX: 58 years / Male INDICATIONS: Patient with history of chronic kidney disease in need of non tunneled dialysis catheter CLINICAL DATA: This is the patient's initial encounter. Patient reports that signs and symptoms have been present for 1 week and indicates a pain score of 8/ 10. MEDICAL/SURGICAL HISTORY: Hepatitis C. Liver cirrhosis, CKD, CAD, A-Fib, HLD, HTN, COPD, NV, CHF, Raynauds syndrome Cholecystectomy. Aortic valve replacement, Knee surgery, CABG, Lung surgery, Back surgery COMPARISON: No prior exams available for comparison. FLUORO TIME (min): 0.1 IMAGE SERIES: 1 ACCESS SITE: Right internal jugular vein DEVICE(S): 14 Pashto double lumen X20CM Schon catheter . . PROCEDURE : 1. Ultrasound guided venipuncture. 2. Fluoroscopic guidance. 3. Central line placement. The risks, benefits and alternatives to the procedure were explained and verbal and written consent was obtained. The site was prepped in sterile fashion. Full sterile technique was used, including cap, mask, sterile gloves and gown and a large sterile sheet. Hand hygiene and 2% chlorhexidine prep was utilized per protocol for cutaneous antisepsis with appropriate dry time for site. Sterile gel and sterile probe cover were utilized for ultrasound guidance. The skin and subcutaneous tissues were infiltrated with local anesthetic solution. A suitable site above the vein was selected with ultrasound and fluoroscopic guidance. A small incision was made. The vein was accessed under direct ultrasound visualization using the micropuncture technique. The micropuncture set was exchanged for a 0.035 wire. The tract was dilated. The catheter was advanced into position under direct fluoroscopic visualization, and was advanced with the tip at the junction of the superior vena cava and rt atrium. The catheter was fixed in place with suture and a sterile dressing was applied. The patient tolerated the procedure well and there were no complications. CONCLUSION: 1. Uncomplicated line placement as above. Electronically signed by: Joe Garcia MD 06/07/2018 9:37 AM EDT Undergoing hemodialysis so far on 95 and 96 AND 9-8 Assessment and Plan - Plan RESPIRATORY FAILURE RENAL FAILURE CRISTIANE PLAN O2 NEEDED PAP THERAPY PULM TOILET INCREASE ACTIVITY
[2018-06-28] MEDS: rifAXIMin 550 MG Tablet PO SCH ×2 (11:29→22:47)
[2018-06-28] MEDS: Vancomycin Inj 1,000 MG in Sodium Chlor 0.9% Inj 250 ML IV.SIG SCH (15:53)
[2018-06-28] MEDS: Heparin 10,000 UNITS/10 ML Vial (for IV use) OTHER PRN (15:54)
[2018-06-28] MEDS: Albumin Human 25% Inj 100 ML IV.SIG PRN (16:19)
--- NOTE | 2018-06-28 16:31 | P.PN ---
Subjective Interval history: The patient was seen earlier today. He did complained of pain to the nurse however says she feels better now. No suprapubic pain. He is able to urinate a little bit clear urine no blood in the urine. Says he has more swelling in his arms and legs today. Plan for hemodialysis. Physical Exam Vital signs: Vital Signs 06/27/18 17:08 06/27/18 18:16 06/27/18 19:33 Temperature 97.7 F Pulse Rate 74 Respiratory Rate 18 18 Blood Pressure 100/58 L Pulse Oximetry 100 95 06/28/18 00:01 06/28/18 04:00 06/28/18 08:00 Temperature 97.9 F 97.9 F 98.0 F Pulse Rate 77 72 101 H Respiratory Rate 18 17 20 Blood Pressure 103/59 L 104/56 L 108/64 Pulse Oximetry 100 100 96 06/28/18 08:28 06/28/18 10:04 06/28/18 12:00 Temperature 97.7 F Pulse Rate 70 Respiratory Rate 18 18 Blood Pressure 89/53 L Pulse Oximetry 96 94 L Intake & Output 06/27/18 06/28/18 06/28/18 18:59 06:59 18:59 Intake Total 480 / 480 720 / 720 Output Total 120 / 120 900 / 900 Balance 360 / 360 -180 / -180 Weight 97.1 kg Intake: Oral 480 / 480 720 / 720 Output: Urine 120 / 120 900 / 900 Other: Date of Last Bowel Movement 06/27/18 06/26/18 06/27/18 # Bowel Movements 1 0 Narrative: GENERAL: Pleasant 58 yo male, with anasarca. Alert and Oriented x 3, appears in NAD. SKIN: Warm and dry. Anasarca. Right arm erythema is improving, with edema, less pain. CARDIOVASCULAR: Regular rate and rhythm without murmurs, gallops, or rubs. S1- S2 no S3 or S4 RESPIRATORY: Breath sounds equal bilaterally. No accessory muscle use. Decrease breath sounds bibasilar. GASTROINTESTINAL: Abdomen distended, nontender to palpation good bowel sounds throughout soft nontender : Jordan removed, some suprapubic tenderness. Scrotal and penile edema. Clear urine. MUSCULOSKELETAL: No cyanosis. Edema in upper and lower ext improving. +1 in upper extremity and lower extremity bilaterally. Right arm with edema +2, redness and pain to palpation. Anasarca. BACK: Nontender without obvious deformity. No CVA tenderness. - Urinary Catheter Management Indwelling Urethral Catheter Cath placed during this visit: yes, but has since been removed by the nurse Reason for continuing: Gross Hematuria Insertion date: 06/04/18 Insertion time: 18:15 Removal date: 06/27/18 Removal time: 11:56 Results - Labs CBC & Chem 7: 06/28/18 04:35 06/28/18 04:35 Laboratory Results - last 24 hr 06/28/18 06/28/18 06/28/18 04:35 04:35 15:18 WBC 4.3 RBC 2.78 L Hgb 8.1 L Hct 24.3 L MCV 87.2 MCH 28.9 MCHC 33.2 RDW 22.4 H Plt Count 192 MPV 7.2 Neut % (Auto) 58.8 Lymph % (Auto) 15.5 [place] % (Auto) 13.1 H Eos % (Auto) 11.3 H Baso % (Auto) 1.3 Neut # (Auto) 2.5 Lymph # (Auto) 0.7 L [place] # (Auto) 0.6 Eos # (Auto) 0.5 H Baso # (Auto) 0.1 WBC Differential . Differential Comment Auto diff final Sodium 135 L Potassium 4.0 Chloride 98 Carbon Dioxide 32.5 H Anion Gap 5 BUN 22 H Creatinine 3.45 H Estimated GFR 18 L POC Glucose 106 Random Glucose 103 Calcium 8.6 - Procedures EXAM DATE: 06/06/2018 4:32 PM EDT AGE/SEX: 58 years / Male INDICATIONS: Patient with history of chronic kidney disease in need of non tunneled dialysis catheter CLINICAL DATA: This is the patient's initial encounter. Patient reports that signs and symptoms have been present for 1 week and indicates a pain score of 8/ 10. MEDICAL/SURGICAL HISTORY: Hepatitis C. Liver cirrhosis, CKD, CAD, A-Fib, HLD, HTN, COPD, PR, CHF, Raynauds syndrome Cholecystectomy. Aortic valve replacement, Knee surgery, CABG, Lung surgery, Back surgery COMPARISON: No prior exams available for comparison. FLUORO TIME (min): 0.1 IMAGE SERIES: 1 ACCESS SITE: Right internal jugular vein DEVICE(S): 14 [place] double lumen X20CM Schon catheter . . PROCEDURE : 1. Ultrasound guided venipuncture. 2. Fluoroscopic guidance. 3. Central line placement. The risks, benefits and alternatives to the procedure were explained and verbal and written consent was obtained. The site was prepped in sterile fashion. Full sterile technique was used, including cap, mask, sterile gloves and gown and a large sterile sheet. Hand hygiene and 2% chlorhexidine prep was utilized per protocol for cutaneous antisepsis with appropriate dry time for site. Sterile gel and sterile probe cover were utilized for ultrasound guidance. The skin and subcutaneous tissues were infiltrated with local anesthetic solution. A suitable site above the vein was selected with ultrasound and fluoroscopic guidance. A small incision was made. The vein was accessed under direct ultrasound visualization using the micropuncture technique. The micropuncture set was exchanged for a 0.035 wire. The tract was dilated. The catheter was advanced into position under direct fluoroscopic visualization, and was advanced with the tip at the junction of the superior vena cava and rt atrium. The catheter was fixed in place with suture and a sterile dressing was applied. The patient tolerated the procedure well and there were no complications. CONCLUSION: 1. Uncomplicated line placement as above. Electronically signed by: Joe Garcia MD 06/07/2018 9:37 AM EDT Undergoing hemodialysis so far on and 96 AND 06-09 Assessment and Plan - Plan Mr. Boogie is a pleasant 58-year-old male with a history of hepatitis C on Harvoni, CKD who was admitted to the hospital after he had a blood work at the [place] which shows hypokalemia and worsening creatinine. Acute on chronic kidney disease Hyperkalemia Hyponatremia -Creatinine 2.5 --> 1.80 --> 1.90 ==> 2.2 ==> 2.9 ==> 3.7 --->4.26--> Continue to slowly improve. Continues to improve with HD. His baseline creatinine is about 1.4-1.6. -Is being given Lasix 80 mg IV twice daily as well as Zaroxolyn and ProAmatine -Potassium has improved. -Continue Midodrine, albumin. DC Octreotide. -Needs dialysis at [place] per nephrology. Acute renal failure status post chemo dialysis catheter placed on 95 Status post hemodialysis per nephro Hypokalemia replace with potassium bath during hemodialysis Monitor electrolytes Patient with hepato renal syndrome With azotemia and Creatinine requiring hemodialysis Urine sodium low Patient with hepatorenal syndrome patient with HCV cirrhosis and on transplant list at [place] Vas-Cath replaced 06/15 after patient accidentally pulled vas cath. . Monitor kidney function Continue HD Needs HD at [place]. CM is ff for arrangement Paroxysmal Atrial fibrillation -Patient takes Atenolol at home. Continue Metoprolol 25mg BID. -[id number] score 0. Although Aspirin would be beneficial, given his liver cirrhosis, it maybe risky to start Aspirin. -Patient will discuss with his assembler cards and announcements after hospitalization. Liver cirrhosis Hepatitis C COAGULOPATHY -Patient is currently on Harvoni. Abdominal ultrasound did not reveal enough ascites to drain. -Patient follows up with [facility] with regards to liver transplant. - Morphine for abdominal pain. -Ammonia level is increased will make sure he is on lactulose may have to add rifaximin and increase lactulose to 3 times daily- monitor as need ammonia level Full code. INR is 1.7 due to liver disease. On Heparin 5000 unit SQ Q12hrs for DVT prophylaxis. PT AND OT TO EVAL AND TREAT consult pulmonary, ff OXYGEN NEEDED BIPAP AT NIGHT AND FOR NAPS HD PER NEPHROLOGY Pulled central line by accident 06.14 . Nephrology ff if needs more dialysis might need a new line Right arm possible cellulitis ?. Patient with swelling redness and pain of the right arm. Check CBC, CMP. Wound cultures if possible. Consult wound care. Wound care recommend clean soap and water, leave open, use UltraSorb if weeping DC Bactrim. Cont IV vanco with HD. Consult ID for recs for abx. Improved significantly. Continue hemodialysis as patient will anasarca. Keep arm elevated Patient however with more pain erythema and swelling of the right arm not improving , and anasarca otherwise is improving with HD. Check CPK, will consult hand surgeon Consult hand surg for eval for poss compartment sdr , discussed with Dr Osmel Velazquez , CT right elbow no signs of compartment sdr. , signed off. Gross hematuria traumatic Jordan insertion in the setting of elevated INR. Hematuria resolved. Urology consulted, seen by Dr Mota, appreciate recommendations CBI with Amicar solution, hematuria resolved. DC jordan CBI, Staretd voiding trials 06/27. Discussed with Dr Mota appreciate recommendations. Remains without jordan, hematuria resolved. Monitor UOP Patient will require further urologic workup to include cystoscopy when medically stable (this can be performed as an outpatient). WILL NEED FOLLOW UP WITH [facility] AFTER DISCHARGE Code Status: FULL CODE Discussed Condition With: Patient, family at bedside his , nurse Discharge Planning: Plan to DC home with home health. Patient needs HD, so far not cleared by nephrology Anasarca improved with HD Cleared by GI to follow up as OP with GI at [facility] pending improvement and clearance by nephrology Pulled accidentally vas cath on 06/14. IR placed a new vas cath on 06/15 Continue HD per nephrology Right arm swelling, erythema and more pain, check CPK. Consult hand surg for evaluation poss compartment sdr. Plan for CT right arm CT shows cellulitis DC bactrim and started IV vanco . Consult ID for further abx recommendations. Hematuria resolving, Jordan removed and started voiding trials per DR Mota. Hematuria resolved, no jordan at this time. Patient needs follow up with urology as OP.
--- NOTE | 2018-06-28 18:07 | P.PNNP ---
Subjective Interval history: Seen during dialysis Physical Exam Vital signs: Vital Signs 06/27/18 18:16 06/27/18 19:33 06/28/18 00:01 Temperature 97.7 F 97.9 F Pulse Rate 74 77 Respiratory Rate 18 18 18 Blood Pressure 100/58 L 103/59 L Pulse Oximetry 95 100 06/28/18 04:00 06/28/18 08:00 06/28/18 08:28 Temperature 97.9 F 98.0 F Pulse Rate 72 101 H Respiratory Rate 17 20 18 Blood Pressure 104/56 L 108/64 Pulse Oximetry 100 96 06/28/18 10:04 06/28/18 12:00 06/28/18 16:00 Temperature 97.7 F 97.5 F L Pulse Rate 70 60 Respiratory Rate 18 20 Blood Pressure 89/53 L 92/54 L Pulse Oximetry 96 94 L 96 Intake & Output 06/27/18 06/28/18 06/28/18 18:59 06:59 18:59 Intake Total 480 / 480 720 / 720 940 / 940 Output Total 120 / 120 900 / 900 450 / 450 Balance 360 / 360 -180 / -180 490 / 490 Weight 97.1 kg Intake: IV 100 / 100 Flexbumin 25% Inj 100 ML @ 60 100 / 100 mls/hr IV.SIG WITH DIALYSIS PRN Rx#:[id number] Oral 480 / 480 720 / 720 840 / 840 Output: Urine 120 / 120 900 / 900 450 / 450 Other: Date of Last Bowel Movement 06/27/18 06/26/18 06/27/18 # Bowel Movements 1 0 1 Narrative: GENERAL: Pleasant 58 yo male, with anasarca. Alert and Oriented x 3, appears in NAD. SKIN: Warm and dry. Anasarca. Right arm erythema is improving, with edema, less pain. CARDIOVASCULAR: Regular rate and rhythm without murmurs, gallops, or rubs. S1- S2 no S3 or S4 RESPIRATORY: Breath sounds equal bilaterally. No accessory muscle use. Decrease breath sounds bibasilar. GASTROINTESTINAL: Abdomen distended, nontender to palpation good bowel sounds throughout soft nontender : Ureña removed, some suprapubic tenderness. Scrotal and penile edema. Clear urine. MUSCULOSKELETAL: No cyanosis. Edema in upper and lower ext improving. +1 in upper extremity and lower extremity bilaterally. Right arm with edema +2, redness and pain to palpation. Anasarca. BACK: Nontender without obvious deformity. No CVA tenderness. - Urinary Catheter Management Indwelling Urethral Catheter Cath placed during this visit: yes, but has since been removed by the nurse Reason for continuing: Gross Hematuria Insertion date: 06/04/18 Insertion time: 18:15 Removal date: 06/27/18 Removal time: 11:56 Assessment and Plan - Assessment (1) Acute renal failure superimposed on stage 3 chronic kidney disease Code(s): N17.9 - Acute kidney failure, unspecified; N18.3 - Chronic kidney disease, stage 3 (moderate) Status: Acute (2) Hyponatremia Code(s): E87.1 - Hypo-osmolality and hyponatremia Status: Acute (3) Cirrhosis Code(s): K74.60 - Unspecified cirrhosis of liver Status: Acute - Plan Worsening azotemia: Creatinine was elevated and ended up on hemodialysis Urine sodium low hepatorenal syndrome patient with HCV cirrhosis and on hepatology at [place] Hematuria on bladder irrigation Hemodialysis Monday and Monday Permacath in place, Patient seen during hemodialysis 2 liters of ultrafiltration blood pressure is low With outpatient set up there is some recovery of liver functions, transplant referral has to be made by liver specialist This can be done as an outpatient Hemodialysis to continue as outpatient once final discharge set up is complete
[2018-06-29 04:17] LABS: Eos # (Auto) 0.4 th/mm3 (0.0-0.4); Eos % (Auto) 9.5 % (0.0-4.0); Hematocrit 23.6 % (39.0-51.0); Lymph # (Auto) 0.7 th/mm3 (1.0-4.8); Lymph % (Auto) 14.5 % (9.0-44.0); Mean Corpuscular HGB Conc 33.8 % (32.0-36.0); Mean Corpuscular Hemoglobin 29.4 pg (27.0-34.0); Mean Corpuscular Volume 86.8 fL (80.0-100.0); Mono # (Auto) 0.5 th/mm3 (0.0-0.9); Mono % (Auto) 12.2 % (0.0-8.0); Neut # (Auto) 2.8 th/mm3 (1.8-7.7); Neut % (Auto) 62.8 % (16.0-70.0); Platelet Count 167 th/mm3 (150-450); Red Blood Count 2.72 mil/mm3 (4.50-5.90); White Blood Count 4.5 th/mm3 (4.0-11.0)
[2018-06-29 04:38] LABS: Calcium 8.6 mg/dL (8.5-10.1); Carbon Dioxide 32.7 meq/L (21.0-32.0); Potassium 3.9 meq/L (3.5-5.1)
[2018-06-29] MEDS: Torsemide 20 MG Tablet PO SCH ×2 (08:02→20:47)
[2018-06-29] MEDS: HARVONI PO SCH (08:02)
[2018-06-29] MEDS: Heparin Central Flush 100 UNIT/ML 5 ML Vial IV.FLUSH SCH (08:03)
[2018-06-29] MEDS: Nystatin 100,000 UNITS/GM Powder 15 GM Bottle TOPICAL SCH ×4 (08:11→20:47)
--- NOTE | 2018-06-29 10:29 | P.PNNP ---
Physical Exam Vital signs: Vital Signs 06/28/18 12:00 06/28/18 16:00 06/28/18 20:00 Temperature 97.7 F 97.5 F L 98.3 F Pulse Rate 70 60 83 Respiratory Rate 18 20 19 Blood Pressure 89/53 L 92/54 L 132/62 Pulse Oximetry 94 L 96 99 06/28/18 20:10 06/28/18 21:08 06/28/18 23:16 Temperature Pulse Rate Respiratory Rate 18 19 Blood Pressure Pulse Oximetry 98 06/29/18 00:00 06/29/18 02:51 06/29/18 05:45 Temperature 98.6 F Pulse Rate 72 Respiratory Rate 18 17 18 Blood Pressure 113/58 L Pulse Oximetry 97 06/29/18 08:00 06/29/18 10:22 Temperature 98.1 F Pulse Rate 71 Respiratory Rate 18 Blood Pressure 93/54 L Pulse Oximetry 99 94 L Intake & Output 06/28/18 06/29/18 06/29/18 18:59 06:59 18:59 Intake Total 940 / 940 250 / 250 Output Total 2450 / 2450 100 / 100 Balance -1510 / -1510 150 / 150 Intake: IV 100 / 100 250 / 250 Flexbumin 25% Inj 100 ML @ 60 100 / 100 mls/hr IV.SIG WITH DIALYSIS PRN Rx#:[id number] Vancomycin Inj 1,000 MG In NS 250 / 250 Inj 250 ML @ 250 mls/hr IV.SIG WITH DIALYSIS SHALINI Rx#:[id number] Oral 840 / 840 Output: Urine 450 / 450 100 / 100 Hemodialysis Amount 1999 Other: Date of Last Bowel Movement 06/27/18 06/27/18 06/27/18 # Bowel Movements 1 Narrative: GENERAL: Pleasant 58 yo male, with anasarca. Alert and Oriented x 3, appears in NAD. SKIN: Warm and dry. Anasarca. Right arm erythema is improving, with edema, less pain. CARDIOVASCULAR: Regular rate and rhythm without murmurs, gallops, or rubs. S1- S2 no S3 or S4 RESPIRATORY: Breath sounds equal bilaterally. No accessory muscle use. Decrease breath sounds bibasilar. GASTROINTESTINAL: Abdomen distended, nontender to palpation good bowel sounds throughout soft nontender : Ureña removed, some suprapubic tenderness. Scrotal and penile edema. Clear urine. MUSCULOSKELETAL: No cyanosis. Edema in upper and lower ext improving. +1 in upper extremity and lower extremity bilaterally. Right arm with edema +2, redness and pain to palpation. Anasarca. BACK: Nontender without obvious deformity. No CVA tenderness. - Urinary Catheter Management Indwelling Urethral Catheter Cath placed during this visit: yes, but has since been removed by the nurse Reason for continuing: Gross Hematuria Insertion date: 06/04/18 Insertion time: 18:15 Removal date: 06/27/18 Removal time: 11:56 Assessment and Plan - Assessment (1) Acute renal failure superimposed on stage 3 chronic kidney disease Code(s): N17.9 - Acute kidney failure, unspecified; N18.3 - Chronic kidney disease, stage 3 (moderate) Status: Acute (2) Hyponatremia Code(s): E87.1 - Hypo-osmolality and hyponatremia Status: Acute (3) Cirrhosis Code(s): K74.60 - Unspecified cirrhosis of liver Status: Acute - Plan Worsening azotemia: Creatinine was elevated and ended up on hemodialysis Urine sodium low hepatorenal syndrome patient with HCV cirrhosis and on hepatology at [place] Hematuria on bladder irrigation Hemodialysis Monday and Monday Permacath in place, Await placement
[2018-06-29] MEDS: rifAXIMin 550 MG Tablet PO SCH ×2 (11:46→22:33)
[2018-06-29] MEDS: Metoprolol Tartrate 50 MG Tablet PO SCH ×2 (11:58→20:47)
--- NOTE | 2018-06-29 12:53 | P.PN ---
Subjective Interval history: Is in the chair appears not acute distress. No fever or chills overnight. Feels tired. No suprapubic pain. Fairly well with good urine output, no more hematuria. Pain in his right arm improving, erythema resolving. Still with a significant edema in the right arm. Anasarca improving after dialysis Physical Exam Vital signs: Vital Signs 06/28/18 16:00 06/28/18 20:00 06/28/18 20:10 Temperature 97.5 F L 98.3 F Pulse Rate 60 83 Respiratory Rate 20 19 Blood Pressure 92/54 L 132/62 Pulse Oximetry 96 99 98 06/28/18 21:08 06/28/18 23:16 06/29/18 00:00 Temperature 98.6 F Pulse Rate 72 Respiratory Rate 18 19 18 Blood Pressure 113/58 L Pulse Oximetry 97 06/29/18 02:51 06/29/18 05:45 06/29/18 08:00 Temperature 98.1 F Pulse Rate 71 Respiratory Rate 17 18 18 Blood Pressure 93/54 L Pulse Oximetry 99 06/29/18 10:22 06/29/18 12:00 Temperature 98.3 F Pulse Rate 74 Respiratory Rate 20 Blood Pressure 109/74 Pulse Oximetry 94 L 98 Intake & Output 06/28/18 06/29/18 06/29/18 18:59 06:59 18:59 Intake Total 940 / 940 250 / 250 Output Total 2450 / 2450 100 / 100 Balance -1510 / -1510 150 / 150 Intake: IV 100 / 100 250 / 250 Flexbumin 25% Inj 100 ML @ 60 100 / 100 mls/hr IV.SIG WITH DIALYSIS PRN Rx#:[id number] Vancomycin Inj 1,000 MG In NS 250 / 250 Inj 250 ML @ 250 mls/hr IV.SIG WITH DIALYSIS SHALINI Rx#:[id number] Oral 840 / 840 Output: Urine 450 / 450 100 / 100 Hemodialysis Amount 1999 Other: Date of Last Bowel Movement 06/27/18 06/27/18 06/27/18 # Bowel Movements 1 Narrative: GENERAL: Pleasant 58 yo male, with anasarca. Alert and Oriented x 3, appears in NAD. SKIN: Warm and dry. Anasarca. Right arm erythema improving, still with significant with edema, less pain. CARDIOVASCULAR: Regular rate and rhythm without murmurs, gallops, or rubs. S1- S2 no S3 or S4 RESPIRATORY: Breath sounds equal bilaterally. No accessory muscle use. Decrease breath sounds bibasilar. GASTROINTESTINAL: Abdomen distended, nontender to palpation good bowel sounds throughout soft nontender : Jordan removed, some suprapubic tenderness. Scrotal and penile edema. Clear urine. MUSCULOSKELETAL: No cyanosis. Edema in upper and lower ext improving. +1 in upper extremity and lower extremity bilaterally. Right arm with edema +2, redness and pain to palpation. Anasarca. BACK: Nontender without obvious deformity. No CVA tenderness. - Urinary Catheter Management Indwelling Urethral Catheter Cath placed during this visit: yes, but has since been removed by the nurse Reason for continuing: Gross Hematuria Insertion date: 06/04/18 Insertion time: 18:15 Removal date: 06/27/18 Removal time: 11:56 Results - Labs CBC & Chem 7: 06/29/18 03:50 06/29/18 03:50 Laboratory Results - last 24 hr 06/28/18 06/29/18 06/29/18 15:18 03:50 03:50 WBC 4.5 RBC 2.72 L Hgb 8.0 L Hct 23.6 L MCV 86.8 MCH 29.4 MCHC 33.8 RDW 23.0 H Plt Count 167 MPV 7.0 Neut % (Auto) 62.8 Lymph % (Auto) 14.5 [place] % (Auto) 12.2 H Eos % (Auto) 9.5 H Baso % (Auto) 1.0 Neut # (Auto) 2.8 Lymph # (Auto) 0.7 L [place] # (Auto) 0.5 Eos # (Auto) 0.4 Baso # (Auto) 0.0 WBC Differential . Differential Comment Auto diff final Sodium 139 Potassium 3.9 Chloride 99 Carbon Dioxide 32.7 H Anion Gap 7 BUN 13 Creatinine 2.70 H Estimated GFR 24 L POC Glucose 106 Random Glucose 96 Calcium 8.6 - Procedures EXAM DATE: 06/06/2018 4:32 PM EDT AGE/SEX: 58 years / Male INDICATIONS: Patient with history of chronic kidney disease in need of non tunneled dialysis catheter CLINICAL DATA: This is the patient's initial encounter. Patient reports that signs and symptoms have been present for 1 week and indicates a pain score of 8/ 10. MEDICAL/SURGICAL HISTORY: Hepatitis C. Liver cirrhosis, CKD, CAD, A-Fib, HLD, HTN, COPD, [place], CHF, Raynauds syndrome Cholecystectomy. Aortic valve replacement, Knee surgery, CABG, Lung surgery, Back surgery COMPARISON: No prior exams available for comparison. FLUORO TIME (min): 0.1 IMAGE SERIES: 1 ACCESS SITE: Right internal jugular vein DEVICE(S): 14 [place] double lumen X20CM Schon catheter . . PROCEDURE : 1. Ultrasound guided venipuncture. 2. Fluoroscopic guidance. 3. Central line placement. The risks, benefits and alternatives to the procedure were explained and verbal and written consent was obtained. The site was prepped in sterile fashion. Full sterile technique was used, including cap, mask, sterile gloves and gown and a large sterile sheet. Hand hygiene and 2% chlorhexidine prep was utilized per protocol for cutaneous antisepsis with appropriate dry time for site. Sterile gel and sterile probe cover were utilized for ultrasound guidance. The skin and subcutaneous tissues were infiltrated with local anesthetic solution. A suitable site above the vein was selected with ultrasound and fluoroscopic guidance. A small incision was made. The vein was accessed under direct ultrasound visualization using the micropuncture technique. The micropuncture set was exchanged for a 0.035 wire. The tract was dilated. The catheter was advanced into position under direct fluoroscopic visualization, and was advanced with the tip at the junction of the superior vena cava and rt atrium. The catheter was fixed in place with suture and a sterile dressing was applied. The patient tolerated the procedure well and there were no complications. CONCLUSION: 1. Uncomplicated line placement as above. Electronically signed by: Joe Garcia MD 06/07/2018 9:37 AM EDT Undergoing hemodialysis so far on and AND 06-09 Assessment and Plan - Plan Mr. Boogie is a pleasant 58-year-old male with a history of hepatitis C on Harvoni, CKD who was admitted to the hospital after he had a blood work at the [facility] which shows hypokalemia and worsening creatinine. Acute on chronic kidney disease Hyperkalemia Hyponatremia -Creatinine 2.5 --> 1.80 --> 1.90 ==> 2.2 ==> 2.9 ==> 3.7 --->4.26--> Continue to slowly improve. Continues to improve with HD. His baseline creatinine is about 1.4-1.6. -Is being given Lasix 80 mg IV twice daily as well as Zaroxolyn and ProAmatine -Potassium has improved. -Continue Midodrine, albumin. DC Octreotide. -Needs dialysis at [facility] per nephrology. Acute renal failure status post chemo dialysis catheter placed on 95 Status post hemodialysis per nephro Hypokalemia replace with potassium bath during hemodialysis Monitor electrolytes Patient with hepato renal syndrome With azotemia and Creatinine requiring hemodialysis Urine sodium low Patient with hepatorenal syndrome patient with HCV cirrhosis and on transplant list at [facility] Vas-Cath replaced 06/15 after patient accidentally pulled vas cath. . Monitor kidney function Continue HD Needs HD at [place]. CM is ff for arrangement Paroxysmal Atrial fibrillation -Patient takes Atenolol at home. Continue Metoprolol 25mg BID. -[id number] score 0. Although Aspirin would be beneficial, given his liver cirrhosis, it maybe risky to start Aspirin. -Patient will discuss with his certified medical transcriptionist after hospitalization. Liver cirrhosis Hepatitis C COAGULOPATHY -Patient is currently on Harvoni. Abdominal ultrasound did not reveal enough ascites to drain. -Patient follows up with [facility] with regards to liver transplant. - Morphine for abdominal pain. -Ammonia level is increased will make sure he is on lactulose may have to add rifaximin and increase lactulose to 3 times daily- monitor as need ammonia level Full code. INR is 1.7 due to liver disease. On Heparin 5000 unit SQ Q12hrs for DVT prophylaxis. PT AND OT TO EVAL AND TREAT consult pulmonary, ff OXYGEN NEEDED BIPAP AT NIGHT AND FOR NAPS HD PER NEPHROLOGY Pulled central line by accident 06.14 . Nephrology ff if needs more dialysis might need a new line Right arm possible cellulitis ?. Patient with swelling redness and pain of the right arm. Check CBC, CMP. Wound cultures if possible. Consult wound care. Wound care recommend clean soap and water, leave open, use UltraSorb if weeping DC Bactrim. Cont IV vanco with HD. Consult ID for recs for abx. Improved significantly. Continue hemodialysis as patient will anasarca. Keep arm elevated Patient however with more pain erythema and swelling of the right arm not improving , and anasarca otherwise is improving with HD. Check CPK, will consult hand surgeon Consult hand surg for eval for poss compartment sdr , discussed with Dr Osmel Velazquez , CT right elbow no signs of compartment sdr. , signed off. Gross hematuria traumatic Jordan insertion in the setting of elevated INR. Hematuria resolved. Urology consulted, seen by Dr Mota, appreciate recommendations CBI with Amicar solution, hematuria resolved. DC jordan CBI, Staretd voiding trials 06/27. Discussed with Dr Mota appreciate recommendations. Remains without jordan, hematuria resolved. Monitor UOP Patient will require further urologic workup to include cystoscopy when medically stable (this can be performed as an outpatient). WILL NEED FOLLOW UP WITH [facility] AFTER DISCHARGE Code Status: FULL CODE Discussed Condition With: Patient, family at bedside his , nurse Discharge Planning: Plan to [place] home with home health. Patient needs HD, so far not cleared by nephrology Anasarca improved with HD Cleared by GI to follow up as OP with GI at [facility] pending improvement and clearance by nephrology Pulled accidentally vas cath on 06/14. IR placed a new vas cath on 06/15 Continue HD per nephrology Right arm swelling, erythema and more pain, check CPK. Consult hand surg for evaluation poss compartment sdr. Plan for CT right arm CT shows cellulitis DC bactrim and started IV vanco . Consult ID for further abx recommendations. Hematuria resolving, Jordan removed and started voiding trials per DR Mota. Hematuria resolved, no jordan at this time. Patient needs follow up with urology as OP. CM is also ff for DC plan, needs arrangements for HD as OP
--- NOTE | 2018-06-29 16:07 | P.PN ---
Subjective Interval history: ALERT NAD Physical Exam Vital signs: Vital Signs 06/28/18 20:00 06/28/18 20:10 06/28/18 21:08 Temperature 98.3 F Pulse Rate 83 Respiratory Rate 19 18 Blood Pressure 132/62 Pulse Oximetry 99 98 06/28/18 23:16 06/29/18 00:00 06/29/18 02:51 Temperature 98.6 F Pulse Rate 72 Respiratory Rate 19 18 17 Blood Pressure 113/58 L Pulse Oximetry 97 06/29/18 05:45 06/29/18 08:00 06/29/18 10:22 Temperature 98.1 F Pulse Rate 71 Respiratory Rate 18 18 Blood Pressure 93/54 L Pulse Oximetry 99 94 L 06/29/18 12:00 Temperature 98.3 F Pulse Rate 74 Respiratory Rate 20 Blood Pressure 109/74 Pulse Oximetry 98 Intake & Output 06/28/18 06/29/18 06/29/18 18:59 06:59 18:59 Intake Total 940 / 940 250 / 250 Output Total 2450 / 2450 100 / 100 Balance -1510 / -1510 150 / 150 Intake: IV 100 / 100 250 / 250 Flexbumin 25% Inj 100 ML @ 60 100 / 100 mls/hr IV.SIG WITH DIALYSIS PRN Rx#:[id number] Vancomycin Inj 1,000 MG In NS 250 / 250 Inj 250 ML @ 250 mls/hr IV.SIG WITH DIALYSIS SHALINI Rx#:[id number] Oral 840 / 840 Output: Urine 450 / 450 100 / 100 Hemodialysis Amount 1999 Other: Date of Last Bowel Movement 06/27/18 06/27/18 06/27/18 # Bowel Movements 1 Narrative: GENERAL: Pleasant 58 yo male, with anasarca. Alert and Oriented x 3, appears in NAD. SKIN: Warm and dry. Anasarca. Right arm erythema improving, still with significant with edema, less pain. CARDIOVASCULAR: Regular rate and rhythm without murmurs, gallops, or rubs. S1- S2 no S3 or S4 RESPIRATORY: Breath sounds equal bilaterally. No accessory muscle use. Decrease breath sounds bibasilar. GASTROINTESTINAL: Abdomen distended, nontender to palpation good bowel sounds throughout soft nontender : [place]re[place] removed, some suprapubic tenderness. Scrotal and penile edema. Clear urine. MUSCULOSKELETAL: No cyanosis. Edema in upper and lower ext improving. +1 in upper extremity and lower extremity bilaterally. Right arm with edema +2, redness and pain to palpation. Anasarca. BACK: Nontender without obvious deformity. No CVA tenderness. - Urinary Catheter Management Indwelling Urethral Catheter Cath placed during this visit: yes, but has since been removed by the nurse Reason for continuing: Gross Hematuria Insertion date: 06/04/18 Insertion time: 18:15 Removal date: 06/27/18 Removal time: 11:56 Results - Labs CBC & Chem 7: 06/29/18 03:50 06/29/18 03:50 Laboratory Results - last 24 hr 06/29/18 06/29/18 03:50 03:50 WBC 4.5 RBC 2.72 L Hgb 8.0 L Hct 23.6 L MCV 86.8 MCH 29.4 MCHC 33.8 RDW 23.0 H Plt Count 167 MPV 7.0 Neut % (Auto) 62.8 Lymph % (Auto) 14.5 [place] % (Auto) 12.2 H Eos % (Auto) 9.5 H Baso % (Auto) 1.0 Neut # (Auto) 2.8 Lymph # (Auto) 0.7 L [place] # (Auto) 0.5 Eos # (Auto) 0.4 Baso # (Auto) 0.0 WBC Differential . Differential Comment Auto diff final Sodium 139 Potassium 3.9 Chloride 99 Carbon Dioxide 32.7 H Anion Gap 7 BUN 13 Creatinine 2.70 H Estimated GFR 24 L Random Glucose 96 Calcium 8.6 - Procedures EXAM DATE: 06/06/2018 4:32 PM EDT AGE/SEX: 58 years / Male INDICATIONS: Patient with history of chronic kidney disease in need of non tunneled dialysis catheter CLINICAL DATA: This is the patient's initial encounter. Patient reports that signs and symptoms have been present for 1 week and indicates a pain score of 8/ 10. MEDICAL/SURGICAL HISTORY: Hepatitis C. Liver cirrhosis, CKD, CAD, A-Fib, HLD, HTN, COPD, [place], CHF, Raynauds syndrome Cholecystectomy. Aortic valve replacement, Knee surgery, CABG, Lung surgery, Back surgery COMPARISON: No prior exams available for comparison. FLUORO TIME (min): 0.1 IMAGE SERIES: 1 ACCESS SITE: Right internal jugular vein DEVICE(S): 14 [place] double lumen X20CM Schon catheter . . PROCEDURE : 1. Ultrasound guided venipuncture. 2. Fluoroscopic guidance. 3. Central line placement. The risks, benefits and alternatives to the procedure were explained and verbal and written consent was obtained. The site was prepped in sterile fashion. Full sterile technique was used, including cap, mask, sterile gloves and gown and a large sterile sheet. Hand hygiene and 2% chlorhexidine prep was utilized per protocol for cutaneous antisepsis with appropriate dry time for site. Sterile gel and sterile probe cover were utilized for ultrasound guidance. The skin and subcutaneous tissues were infiltrated with local anesthetic solution. A suitable site above the vein was selected with ultrasound and fluoroscopic guidance. A small incision was made. The vein was accessed under direct ultrasound visualization using the micropuncture technique. The micropuncture set was exchanged for a 0.035 wire. The tract was dilated. The catheter was advanced into position under direct fluoroscopic visualization, and was advanced with the tip at the junction of the superior vena cava and rt atrium. The catheter was fixed in place with suture and a sterile dressing was applied. The patient tolerated the procedure well and there were no complications. CONCLUSION: 1. Uncomplicated line placement as above. Electronically signed by: Joe Garcia MD 06/07/2018 9:37 AM EDT Undergoing hemodialysis so far on 95 and 96 AND 8 Assessment and Plan - Plan RESPIRATORY FAILURE RENAL FAILURE CRISTIANE PLAN O2 NEEDED PAP THERAPY PULM TOILET INCREASE ACTIVITY
[2018-06-30 06:11] LABS: Baso # (Auto) 0.1 th/mm3 (0.0-0.2); Baso % (Auto) 1.2 % (0.0-2.0); Eos # (Auto) 0.5 th/mm3 (0.0-0.4); Eos % (Auto) 11.8 % (0.0-4.0); Hematocrit 23.8 % (39.0-51.0); Hemoglobin 7.9 gm/dL (13.0-17.0); Lymph # (Auto) 0.7 th/mm3 (1.0-4.8); Lymph % (Auto) 14.8 % (9.0-44.0); Mean Corpuscular HGB Conc 33.2 % (32.0-36.0); Mean Corpuscular Hemoglobin 28.9 pg (27.0-34.0); Mean Corpuscular Volume 87.1 fL (80.0-100.0); Mean Platelet Volume 7.2 fL (7.0-11.0); Mono # (Auto) 0.6 th/mm3 (0.0-0.9); Mono % (Auto) 13.5 % (0.0-8.0); Neut # (Auto) 2.7 th/mm3 (1.8-7.7); Neut % (Auto) 58.7 % (16.0-70.0); Platelet Count 165 th/mm3 (150-450); Red Blood Count 2.73 mil/mm3 (4.50-5.90); Red Cell Distribution Width 22.7 % (11.6-17.2); White Blood Count 4.6 th/mm3 (4.0-11.0)
[2018-06-30 06:30] LABS: Calcium 8.5 mg/dL (8.5-10.1); Carbon Dioxide 30.2 meq/L (21.0-32.0); Potassium 4.2 meq/L (3.5-5.1)
[2018-06-30] MEDS: HARVONI PO SCH (08:34)
[2018-06-30] MEDS: Torsemide 20 MG Tablet PO SCH ×2 (08:34→21:31)
[2018-06-30] MEDS: Nystatin 100,000 UNITS/GM Powder 15 GM Bottle TOPICAL SCH ×4 (08:34→21:32)
[2018-06-30] MEDS: Metoprolol Tartrate 50 MG Tablet PO SCH ×2 (08:34→21:31)
[2018-06-30] MEDS: Heparin Central Flush 100 UNIT/ML 5 ML Vial IV.FLUSH SCH (08:34)
[2018-06-30] MEDS: Vancomycin Inj 1,000 MG in Sodium Chlor 0.9% Inj 250 ML IV.SIG SCH (11:11)
[2018-06-30] MEDS: Heparin 10,000 UNITS/10 ML Vial (for IV use) OTHER PRN (11:12)
--- NOTE | 2018-06-30 12:29 | P.PNNP ---
Subjective Interval history: Seen during hemodialysis, tolerating well. Denies any shortness of breath, chest pain, nausea, or vomiting. Bilateral lower extremity edema. <Kaleigh Calzada - Last Filed: 06/30/18 12:22> Physical Exam Vital signs: Vital Signs 06/29/18 16:00 06/29/18 18:58 06/29/18 20:00 Temperature 97.8 F 98.5 F Pulse Rate 75 75 Respiratory Rate 20 19 18 Blood Pressure 101/61 111/70 Pulse Oximetry 98 96 06/29/18 22:47 06/30/18 00:00 06/30/18 02:11 Temperature 98.8 F Pulse Rate 70 Respiratory Rate 17 17 18 Blood Pressure 105/68 Pulse Oximetry 94 L 06/30/18 05:06 06/30/18 08:00 06/30/18 11:27 Temperature 97.9 F Pulse Rate 84 Respiratory Rate 18 22 Blood Pressure 125/61 Pulse Oximetry 95 95 Intake & Output 06/29/18 06/30/18 06/30/18 18:59 06:59 18:59 Output Total 175 / 175 Balance -175 / -175 Output: Urine 175 / 175 Other: Date of Last Bowel Movement 06/29/18 06/29/18 06/29/18 # Bowel Movements 1 Narrative: GENERAL: Alert and Oriented x 3, appears in NAD. SKIN: Warm and dry CARDIOVASCULAR: Regular rate and rhythm without murmurs, gallops, or rubs. S1- S2 no S3 or S4 RESPIRATORY: Breath sounds equal bilaterally. No accessory muscle use. Decrease breath sounds bibasilar. GASTROINTESTINAL: Abdomen distended, nontender to palpation good bowel sounds throughout soft nontender MUSCULOSKELETAL: No cyanosis. Anasarca. BACK: Nontender without obvious deformity. No CVA tenderness. - Urinary Catheter Management Indwelling Urethral Catheter Cath placed during this visit: yes, but has since been removed by the nurse Reason for continuing: Gross Hematuria Insertion date: 06/04/18 Insertion time: 18:15 Removal date: 06/27/18 Removal time: 11:56 <Kaleigh Calzada - Last Filed: 06/30/18 12:22> Vital signs: Vital Signs 07/02/18 16:00 07/02/18 17:33 07/02/18 19:44 Temperature 98.3 F Pulse Rate 75 Respiratory Rate 18 18 Blood Pressure 98/55 L Pulse Oximetry 98 95 07/02/18 20:00 07/03/18 00:00 07/03/18 04:00 Temperature 98.1 F 98.9 F 97.9 F Pulse Rate 78 90 78 Respiratory Rate 20 19 19 Blood Pressure 96/56 L 110/59 L 100/59 L Pulse Oximetry 92 L 99 99 07/03/18 06:45 07/03/18 07:43 07/03/18 08:00 Temperature 98.1 F Pulse Rate 87 Respiratory Rate 18 18 20 Blood Pressure 103/55 L Pulse Oximetry 98 07/03/18 13:18 07/03/18 13:51 Temperature Pulse Rate 84 Respiratory Rate 18 Blood Pressure 115/67 Pulse Oximetry Intake & Output 07/02/18 07/03/18 07/03/18 18:59 06:59 18:59 Intake Total 600 / 600 Output Total 650 / 650 2900 / 2900 Balance 600 / 600 -650 / -650 -2900 / -2900 Weight 93.3 kg Intake: Oral 600 / 600 Output: Urine 650 / 650 400 / 400 Hemodialysis Amount 2500 / 2500 Other: # Voids 3 Date of Last Bowel Movement 07/01/18 07/01/18 07/01/18 - Urinary Catheter Management Indwelling Urethral Catheter Cath placed during this visit: no <Jada Lopez - Last Filed: 07/03/18 15:23> Assessment and Plan - Assessment (1) Acute renal failure superimposed on stage 3 chronic kidney disease Code(s): N17.9 - Acute kidney failure, unspecified; N18.3 - Chronic kidney disease, stage 3 (moderate) Status: Acute (2) Hyponatremia Code(s): E87.1 - Hypo-osmolality and hyponatremia Status: Acute (3) Cirrhosis Code(s): K74.60 - Unspecified cirrhosis of liver Status: Acute - Plan Hepatorenal syndrome patient with HCV cirrhosis and on hepatology at [place] Hemodialysis Monday and Monday started on 06/[address] Creatinine at 2.95 with urinary output of 550ml/24 hours Seen during hemodialysis tolerating well will remove fluid as tolerated Perma cath site with some noted erythema, gentamicin ointment ordered. HGB 7.9. Epogen ordered with dialysis Await placement <Kaleigh Calzada - Last Filed: 06/30/18 12:22> - Assessment (1) Acute renal failure superimposed on stage 3 chronic kidney disease Code(s): N17.9 - Acute kidney failure, unspecified; N18.3 - Chronic kidney disease, stage 3 (moderate) Status: Acute (2) Hyponatremia Code(s): E87.1 - Hypo-osmolality and hyponatremia Status: Acute (3) Cirrhosis Code(s): K74.60 - Unspecified cirrhosis of liver Status: Acute - Plan Patient seen and examined, agree with above. HD today, awaiting placement. <Jada Lopez - Last Filed: 07/03/18 15:23>
--- NOTE | 2018-06-30 12:37 | P.PN ---
Subjective Interval history: Had HD seen thereafter. Edema improved overall. No suprapubic pain. Overall improving. Says she has able to ambulate No cp, sob. Physical Exam Vital signs: Vital Signs 06/29/18 16:00 06/29/18 18:58 06/29/18 20:00 Temperature 97.8 F 98.5 F Pulse Rate 75 75 Respiratory Rate 20 19 18 Blood Pressure 101/61 111/70 Pulse Oximetry 98 96 06/29/18 22:47 06/30/18 00:00 06/30/18 02:11 Temperature 98.8 F Pulse Rate 70 Respiratory Rate 17 17 18 Blood Pressure 105/68 Pulse Oximetry 94 L 06/30/18 05:06 06/30/18 08:00 06/30/18 11:27 Temperature 97.9 F Pulse Rate 84 Respiratory Rate 18 22 Blood Pressure 125/61 Pulse Oximetry 95 95 Intake & Output 06/29/18 06/30/18 06/30/18 18:59 06:59 18:59 Output Total 175 / 175 3000 / 3000 Balance -175 / -175 -3000 / -3000 Output: Urine 175 / 175 Hemodialysis Amount 3000 / 3000 Other: Date of Last Bowel Movement 06/29/18 06/29/18 06/29/18 # Bowel Movements 1 Narrative: GENERAL: Pleasant 58 yo male, with anasarca. Alert and Oriented x 3, appears in NAD. SKIN: Warm and dry. Anasarca. Right arm erythema improving, still with significant with edema, less pain. CARDIOVASCULAR: Regular rate and rhythm without murmurs, gallops, or rubs. S1- S2 no S3 or S4 RESPIRATORY: Breath sounds equal bilaterally. No accessory muscle use. Decrease breath sounds bibasilar. GASTROINTESTINAL: Abdomen distended, nontender to palpation good bowel sounds throughout soft nontender : Jordan removed, some suprapubic tenderness. Scrotal and penile edema. Clear urine. MUSCULOSKELETAL: No cyanosis. Edema in upper and lower ext improving. +1 in upper extremity and lower extremity bilaterally. Right arm with edema +2, redness and pain to palpation. Anasarca. BACK: Nontender without obvious deformity. No CVA tenderness. - Urinary Catheter Management Indwelling Urethral Catheter Cath placed during this visit: yes, but has since been removed by the nurse Reason for continuing: Gross Hematuria Insertion date: 06/04/18 Insertion time: 18:15 Removal date: 06/27/18 Removal time: 11:56 Results - Labs CBC & Chem 7: 06/30/18 05:03 06/30/18 05:03 Laboratory Results - last 24 hr 06/30/18 06/30/18 05:03 05:03 WBC 4.6 RBC 2.73 L Hgb 7.9 L Hct 23.8 L MCV 87.1 MCH 28.9 MCHC 33.2 RDW 22.7 H Plt Count 165 MPV 7.2 Neut % (Auto) 58.7 Lymph % (Auto) 14.8 Hardeman % (Auto) 13.5 H Eos % (Auto) 11.8 H Baso % (Auto) 1.2 Neut # (Auto) 2.7 Lymph # (Auto) 0.7 L Hardeman # (Auto) 0.6 Eos # (Auto) 0.5 H Baso # (Auto) 0.1 WBC Differential . Differential Comment Auto diff final Sodium 136 Potassium 4.2 Chloride 97 L Carbon Dioxide 30.2 Anion Gap 9 BUN 19 H Creatinine 2.95 H Estimated GFR 22 L Random Glucose 101 Calcium 8.5 - Procedures EXAM DATE: 06/06/2018 4:32 PM EDT AGE/SEX: 58 years / Male INDICATIONS: Patient with history of chronic kidney disease in need of non tunneled dialysis catheter CLINICAL DATA: This is the patient's initial encounter. Patient reports that signs and symptoms have been present for 1 week and indicates a pain score of 8/ 10. MEDICAL/SURGICAL HISTORY: Hepatitis C. Liver cirrhosis, CKD, CAD, A-Fib, HLD, HTN, COPD, [place], CHF, Raynauds syndrome Cholecystectomy. Aortic valve replacement, Knee surgery, CABG, Lung surgery, Back surgery COMPARISON: No prior exams available for comparison. FLUORO TIME (min): 0.1 IMAGE SERIES: 1 ACCESS SITE: Right internal jugular vein DEVICE(S): 14 Swazi double lumen X20CM Schon catheter . . PROCEDURE : 1. Ultrasound guided venipuncture. 2. Fluoroscopic guidance. 3. Central line placement. The risks, benefits and alternatives to the procedure were explained and verbal and written consent was obtained. The site was prepped in sterile fashion. Full sterile technique was used, including cap, mask, sterile gloves and gown and a large sterile sheet. Hand hygiene and 2% chlorhexidine prep was utilized per protocol for cutaneous antisepsis with appropriate dry time for site. Sterile gel and sterile probe cover were utilized for ultrasound guidance. The skin and subcutaneous tissues were infiltrated with local anesthetic solution. A suitable site above the vein was selected with ultrasound and fluoroscopic guidance. A small incision was made. The vein was accessed under direct ultrasound visualization using the micropuncture technique. The micropuncture set was exchanged for a 0.035 wire. The tract was dilated. The catheter was advanced into position under direct fluoroscopic visualization, and was advanced with the tip at the junction of the superior vena cava and rt atrium. The catheter was fixed in place with suture and a sterile dressing was applied. The patient tolerated the procedure well and there were no complications. CONCLUSION: 1. Uncomplicated line placement as above. Electronically signed by: Joe Garcia MD 06/07/2018 9:37 AM EDT Undergoing hemodialysis so far on and AND 06-09 Assessment and Plan - Plan Mr. Boogie is a pleasant 58-year-old male with a history of hepatitis C on Harvoni, CKD who was admitted to the hospital after he had a blood work at the [facility] which shows hypokalemia and worsening creatinine. Acute on chronic kidney disease Hyperkalemia Hyponatremia -Creatinine 2.5 --> 1.80 --> 1.90 ==> 2.2 ==> 2.9 ==> 3.7 --->4.26--> Continue to slowly improve. Continues to improve with HD. His baseline creatinine is about 1.4-1.6. -Is being given Lasix 80 mg IV twice daily as well as Zaroxolyn and ProAmatine -Potassium has improved. -Continue Midodrine, albumin. DC Octreotide. -Needs dialysis at [place] per nephrology. Acute renal failure status post chemo dialysis catheter placed on 95 Status post hemodialysis per nephro Hypokalemia replace with potassium bath during hemodialysis Monitor electrolytes Patient with hepato renal syndrome With azotemia and Creatinine requiring hemodialysis Urine sodium low Patient with hepatorenal syndrome patient with HCV cirrhosis and on transplant list at [facility] Vas-Cath replaced 06/15 after patient accidentally pulled vas cath. . Monitor kidney function Continue HD Needs HD at [place]. CM is ff for arrangement Paroxysmal Atrial fibrillation -Patient takes Atenolol at home. Continue Metoprolol 25mg BID. -[id number] score 0. Although Aspirin would be beneficial, given his liver cirrhosis, it maybe risky to start Aspirin. -Patient will discuss with his extracorporeal circulation specialist after hospitalization. Liver cirrhosis Hepatitis C COAGULOPATHY -Patient is currently on Harvoni. Abdominal ultrasound did not reveal enough ascites to drain. -[facility] - Morphine for abdominal pain. -Ammonia level is increased will make sure he is on lactulose may have to add rifaximin and increase lactulose to 3 times daily- monitor as need ammonia level Full code. INR is 1.7 due to liver disease. On Heparin 5000 unit SQ Q12hrs for DVT prophylaxis. PT AND OT TO EVAL AND TREAT consult pulmonary, ff OXYGEN NEEDED BIPAP AT NIGHT AND FOR NAPS HD PER NEPHROLOGY Pulled central line by accident 06.14 . Nephrology ff if needs more dialysis might need a new line Right arm possible cellulitis ?. Patient with swelling redness and pain of the right arm. Check CBC, CMP. Wound cultures if possible. Consult wound care. Wound care recommend clean soap and water, leave open, use UltraSorb if weeping DC Bactrim. Cont IV vanco with HD. Consult ID for recs for abx. Improved significantly. Continue hemodialysis as patient will anasarca. Keep arm elevated Patient however with more pain erythema and swelling of the right arm not improving , and anasarca otherwise is improving with HD. Check CPK, will consult hand surgeon Consult hand surg for eval for poss compartment sdr , discussed with Dr Osmel Velazquez , CT right elbow no signs of compartment sdr. , signed off. Gross hematuria traumatic Jordan insertion in the setting of elevated INR. Hematuria resolved. Urology consulted, seen by Dr Mota, appreciate recommendations CBI with Amicar solution, hematuria resolved. DC jordan CBI, Staretd voiding trials 06/27. Discussed with Dr Mota appreciate recommendations. Remains without jordan, hematuria resolved. Monitor UOP Patient will require further urologic workup to include cystoscopy when medically stable (this can be performed as an outpatient). WILL NEED FOLLOW UP WITH [facility] AFTER DISCHARGE Code Status: FULL CODE Discussed Condition With: Patient, family at bedside his , nurse Discharge Planning: Plan to DC home with home health. Patient needs HD, so far not cleared by nephrology Anasarca improved with HD Cleared by GI to follow up as OP with GI at [facility] DC pending improvement and clearance by nephrology Pulled accidentally vas cath on 06/14. IR placed a new vas cath on 06/15 Continue HD per nephrology Right arm swelling, erythema and more pain, check CPK. Consult hand surg for evaluation poss compartment sdr. Plan for CT right arm CT shows cellulitis DC bactrim and started IV vanco . Consult ID for further abx recommendations. Hematuria resolving, Jordan removed and started voiding trials per DR Mota. Hematuria resolved, no jordan at this time. Patient needs follow up with urology as OP. CM is also ff for DC plan, needs arrangements for HD as OP adn nephrology clearance for DC.
[2018-06-30] MEDS: rifAXIMin 550 MG Tablet PO SCH ×2 (12:43→22:55)
[2018-07-01 05:25] LABS: Calcium 8.6 mg/dL (8.5-10.1); Potassium 4.3 meq/L (3.5-5.1)
[2018-07-01] MEDS: Torsemide 20 MG Tablet PO SCH ×2 (08:32→21:10)
[2018-07-01] MEDS: Nystatin 100,000 UNITS/GM Powder 15 GM Bottle TOPICAL SCH ×4 (08:33→21:10)
[2018-07-01] MEDS: Metoprolol Tartrate 50 MG Tablet PO SCH ×2 (08:33→21:09)
[2018-07-01] MEDS: Heparin Central Flush 100 UNIT/ML 5 ML Vial IV.FLUSH SCH (08:34)
[2018-07-01] MEDS: HARVONI PO SCH (08:34)
--- NOTE | 2018-07-01 10:41 | P.PNNP ---
Subjective Interval history: No acute events overnight. Denies any shortness of breath, chest pain, nausea, or vomiting. Continues to have dependent edema. <ElsiHattieKaleigh - Last Filed: 07/01/18 10:32> Physical Exam Vital signs: Vital Signs 06/30/18 11:27 06/30/18 12:45 06/30/18 16:00 Temperature 98.5 F 99.0 F Pulse Rate 73 77 Respiratory Rate 14 15 Blood Pressure 97/64 L 108/56 L Pulse Oximetry 95 98 96 06/30/18 16:51 06/30/18 17:21 06/30/18 20:00 Temperature 98.4 F Pulse Rate 79 Respiratory Rate 18 18 Blood Pressure 117/52 L Pulse Oximetry 96 98 07/01/18 00:00 07/01/18 04:00 07/01/18 08:00 Temperature 98.8 F 99.3 F 98.1 F Pulse Rate 75 67 67 Respiratory Rate 18 18 18 Blood Pressure 101/58 L 97/53 L 102/57 L Pulse Oximetry 98 98 100 Intake & Output 06/30/18 07/01/18 07/01/18 18:59 06:59 18:59 Intake Total 730 / 730 240 / 240 Output Total 3200 / 3200 100 / 100 Balance -2470 / -2470 140 / 140 Weight 93.3 kg Intake: IV 250 / 250 Vancomycin Inj 1,000 MG In NS 250 / 250 Inj 250 ML @ 250 mls/hr IV.SIG WITH DIALYSIS SHALINI Rx#:[id number] Oral 480 / 480 240 / 240 Output: Urine 200 / 200 100 / 100 Hemodialysis Amount 3000 / 3000 Other: # Voids 1 Date of Last Bowel Movement 06/29/18 06/29/18 06/29/18 Narrative: GENERAL: Alert and Oriented x 3, appears in NAD. SKIN: Warm and dry, Perma cath right IJ CARDIOVASCULAR: Regular rate and rhythm without murmurs, gallops, or rubs. S1- S2 no S3 or S4 RESPIRATORY: Breath sounds equal bilaterally. No accessory muscle use. Decrease breath sounds bibasilar. GASTROINTESTINAL: Abdomen distended, nontender to palpation good bowel sounds throughout soft nontender MUSCULOSKELETAL: No cyanosis. Anasarca. BACK: Nontender without obvious deformity. No CVA tenderness. - Urinary Catheter Management Indwelling Urethral Catheter Cath placed during this visit: yes, but has since been removed by the nurse Reason for continuing: Gross Hematuria Insertion date: 06/04/18 Insertion time: 18:15 Removal date: 06/27/18 Removal time: 11:56 <Kaleigh Calzada - Last Filed: 07/01/18 10:32> Vital signs: Vital Signs 07/02/18 16:00 07/02/18 17:33 07/02/18 19:44 Temperature 98.3 F Pulse Rate 75 Respiratory Rate 18 18 Blood Pressure 98/55 L Pulse Oximetry 98 95 07/02/18 20:00 07/03/18 00:00 07/03/18 04:00 Temperature 98.1 F 98.9 F 97.9 F Pulse Rate 78 90 78 Respiratory Rate 20 19 19 Blood Pressure 96/56 L 110/59 L 100/59 L Pulse Oximetry 92 L 99 99 07/03/18 06:45 07/03/18 07:43 07/03/18 08:00 Temperature 98.1 F Pulse Rate 87 Respiratory Rate 18 18 20 Blood Pressure 103/55 L Pulse Oximetry 98 07/03/18 13:18 07/03/18 13:51 Temperature Pulse Rate 84 Respiratory Rate 18 Blood Pressure 115/67 Pulse Oximetry Intake & Output 07/02/18 07/03/18 07/03/18 18:59 06:59 18:59 Intake Total 600 / 600 Output Total 650 / 650 2900 / 2900 Balance 600 / 600 -650 / -650 -2900 / -2900 Weight 93.3 kg Intake: Oral 600 / 600 Output: Urine 650 / 650 400 / 400 Hemodialysis Amount 2500 / 2500 Other: # Voids 3 Date of Last Bowel Movement 07/01/18 07/01/18 07/01/18 - Urinary Catheter Management Indwelling Urethral Catheter Cath placed during this visit: no <Jada Lopez - Last Filed: 07/03/18 15:26> Assessment and Plan - Assessment (1) Acute renal failure superimposed on stage 3 chronic kidney disease Code(s): N17.9 - Acute kidney failure, unspecified; N18.3 - Chronic kidney disease, stage 3 (moderate) Status: Acute (2) Hyponatremia Code(s): E87.1 - Hypo-osmolality and hyponatremia Status: Acute (3) Cirrhosis Code(s): K74.60 - Unspecified cirrhosis of liver Status: Acute - Plan Hepatorenal syndrome patient with HCV cirrhosis and on hepatology at [place] Hemodialysis Monday and Monday started on 06/[address] Creatinine at 2.14 with urinary output of 675 ml/24 hours Hemodialysis yesterday with removal of 3 liters of fluid Avoid nephrotoxins as possible Epogen with dialysis On vancomycin for right arm cellulitis, renal dose as appropriate Creatinine and urinary output improving. <Kaleigh Calzada - Last Filed: 07/01/18 10:32> - Assessment (1) Acute renal failure superimposed on stage 3 chronic kidney disease Code(s): N17.9 - Acute kidney failure, unspecified; N18.3 - Chronic kidney disease, stage 3 (moderate) Status: Acute (2) Hyponatremia Code(s): E87.1 - Hypo-osmolality and hyponatremia Status: Acute (3) Cirrhosis Code(s): K74.60 - Unspecified cirrhosis of liver Status: Acute - Plan Patient seen and examined, agree with above. HD done yesterday. Watch for renal recovery. <Jada Lopez - Last Filed: 07/03/18 15:26>
[2018-07-01] MEDS: rifAXIMin 550 MG Tablet PO SCH ×2 (12:05→22:16)
--- NOTE | 2018-07-01 13:43 | P.PNIM ---
Subjective Interval history: [facility] NO NEW COMPLAINTS NO SOB, NO CHEST PAIN, NO PALPITATIONS Physical Exam Vital signs: Vital Signs 06/30/18 16:00 06/30/18 16:51 06/30/18 17:21 Temperature 99.0 F Pulse Rate 77 Respiratory Rate 15 18 Blood Pressure 108/56 L Pulse Oximetry 96 96 06/30/18 20:00 07/01/18 00:00 07/01/18 04:00 Temperature 98.4 F 98.8 F 99.3 F Pulse Rate 79 75 67 Respiratory Rate 18 18 18 Blood Pressure 117/52 L 101/58 L 97/53 L Pulse Oximetry 98 98 98 07/01/18 08:00 07/01/18 11:05 07/01/18 12:00 Temperature 98.1 F 98.2 F Pulse Rate 67 65 Respiratory Rate 18 18 Blood Pressure 102/57 L 98/61 L Pulse Oximetry 100 100 100 07/01/18 12:35 Temperature Pulse Rate Respiratory Rate 18 Blood Pressure Pulse Oximetry Intake & Output 06/30/18 07/01/18 07/01/18 18:59 06:59 18:59 Intake Total 730 / 730 240 / 240 Output Total 3200 / 3200 100 / 100 Balance -2470 / -2470 140 / 140 Weight 93.3 kg Intake: IV 250 / 250 Vancomycin Inj 1,000 MG In NS 250 / 250 Inj 250 ML @ 250 mls/hr IV.SIG WITH DIALYSIS SHALINI Rx#:[id number] Oral 480 / 480 240 / 240 Output: Urine 200 / 200 100 / 100 Hemodialysis Amount 3000 / 3000 Other: # Voids 1 Date of Last Bowel Movement 06/29/18 06/29/18 06/29/18 Narrative: GENERAL: Alert and Oriented x 3, appears in NAD. SKIN: Warm and dry, Perma cath right IJ CARDIOVASCULAR: Regular rate and rhythm without murmurs, gallops, or rubs. S1- S2 no S3 or S4 RESPIRATORY: Breath sounds equal bilaterally. No accessory muscle use. Decrease breath sounds bibasilar. GASTROINTESTINAL: Abdomen distended, nontender to palpation good bowel sounds throughout soft nontender MUSCULOSKELETAL: No cyanosis. Anasarca. BACK: Nontender without obvious deformity. No CVA tenderness. - Urinary Catheter Management Indwelling Urethral Catheter Cath placed during this visit: yes, but has since been removed by the nurse Reason for continuing: Gross Hematuria Insertion date: 06/04/18 Insertion time: 18:15 Removal date: 06/27/18 Removal time: 11:56 Results - Labs CBC & Chem 7: 06/30/18 05:03 07/01/18 03:39 Laboratory Results - last 24 hr 07/01/18 03:39 Sodium 139 Potassium 4.3 Chloride 99 Carbon Dioxide 32.0 Anion Gap 8 BUN 14 Creatinine 2.14 H Estimated GFR 32 L Random Glucose 85 Calcium 8.6 - Procedures EXAM DATE: 06/06/2018 4:32 PM EDT AGE/SEX: 58 years / Male INDICATIONS: Patient with history of chronic kidney disease in need of non tunneled dialysis catheter CLINICAL DATA: This is the patient's initial encounter. Patient reports that signs and symptoms have been present for 1 week and indicates a pain score of 8/ 10. MEDICAL/SURGICAL HISTORY: Hepatitis C. Liver cirrhosis, CKD, CAD, A-Fib, HLD, HTN, COPD, [place], CHF, Raynauds syndrome Cholecystectomy. Aortic valve replacement, Knee surgery, CABG, Lung surgery, Back surgery COMPARISON: No prior exams available for comparison. FLUORO TIME (min): 0.1 IMAGE SERIES: 1 ACCESS SITE: Right internal jugular vein DEVICE(S): 14 Amharic double lumen X20CM Schon catheter . . PROCEDURE : 1. Ultrasound guided venipuncture. 2. Fluoroscopic guidance. 3. Central line placement. The risks, benefits and alternatives to the procedure were explained and verbal and written consent was obtained. The site was prepped in sterile fashion. Full sterile technique was used, including cap, mask, sterile gloves and gown and a large sterile sheet. Hand hygiene and 2% chlorhexidine prep was utilized per protocol for cutaneous antisepsis with appropriate dry time for site. Sterile gel and sterile probe cover were utilized for ultrasound guidance. The skin and subcutaneous tissues were infiltrated with local anesthetic solution. A suitable site above the vein was selected with ultrasound and fluoroscopic guidance. A small incision was made. The vein was accessed under direct ultrasound visualization using the micropuncture technique. The micropuncture set was exchanged for a 0.035 wire. The tract was dilated. The catheter was advanced into position under direct fluoroscopic visualization, and was advanced with the tip at the junction of the superior vena cava and rt atrium. The catheter was fixed in place with suture and a sterile dressing was applied. The patient tolerated the procedure well and there were no complications. CONCLUSION: 1. Uncomplicated line placement as above. Electronically signed by: Joe Garcia MD 06/07/2018 9:37 AM EDT Undergoing hemodialysis so far on and 96 AND 06-09 Assessment and Plan - Plan Mr. Boogie is a pleasant 58-year-old male with a history of hepatitis C on Harvoni, CKD who was admitted to the hospital after he had a blood work at the [facility] which shows hypokalemia and worsening creatinine. Acute on chronic kidney disease Hyperkalemia Hyponatremia -Creatinine 2.5 --> 1.80 --> 1.90 ==> 2.2 ==> 2.9 ==> 3.7 --->4.26--> Continue to slowly improve. Continues to improve with HD. His baseline creatinine is about 1.4-1.6. -Is being given Lasix 80 mg IV twice daily as well as Zaroxolyn and ProAmatine -Potassium has improved. -Continue Midodrine, albumin. DC Octreotide. -Needs dialysis at [place] per nephrology. Acute renal failure status post chemo dialysis catheter placed on Status post hemodialysis per nephro Hypokalemia replace with potassium bath during hemodialysis Monitor electrolytes Patient with hepato renal syndrome With azotemia and Creatinine requiring hemodialysis Urine sodium low Patient with hepatorenal syndrome patient with HCV cirrhosis and on transplant list at [facility] Vas-Cath replaced 06/15 after patient accidentally pulled vas cath. . Monitor kidney function Continue HD Needs HD at [place]. is ff for arrangement Paroxysmal Atrial fibrillation -Patient takes Atenolol at home. Continue Metoprolol 25mg BID. -[id number] score 0. Although Aspirin would be beneficial, given his liver cirrhosis, it maybe risky to start Aspirin. -Patient will discuss with his it support analyst after hospitalization. Liver cirrhosis Hepatitis C COAGULOPATHY -Patient is currently on Harvoni. Abdominal ultrasound did not reveal enough ascites to drain. -Patient follows up with [facility] with regards to liver transplant. - Morphine for abdominal pain. -Ammonia level is increased will make sure he is on lactulose may have to add rifaximin and increase lactulose to 3 times daily- monitor as need ammonia level Full code. INR is 1.7 due to liver disease. On Heparin 5000 unit SQ Q12hrs for DVT prophylaxis. PT AND OT TO EVAL AND TREAT consult pulmonary, ff OXYGEN NEEDED BIPAP AT NIGHT AND FOR NAPS HD PER NEPHROLOGY Pulled central line by accident 06.14 . Nephrology ff if needs more dialysis might need a new line Right arm possible cellulitis ?. Patient with swelling redness and pain of the right arm. Check CBC, CMP. Wound cultures if possible. Consult wound care. Wound care recommend clean soap and water, leave open, use UltraSorb if weeping DC Bactrim. Cont IV vanco with HD. Consult ID for recs for abx. Improved significantly. Continue hemodialysis as patient will anasarca. Keep arm elevated Patient however with more pain erythema and swelling of the right arm not improving , and anasarca otherwise is improving with HD. Check CPK, will consult hand surgeon Consult hand surg for eval for poss compartment sdr , discussed with Dr Osmel Velazquez , CT right elbow no signs of compartment sdr. , signed off. Gross hematuria traumatic Jordan insertion in the setting of elevated INR. Hematuria resolved. Urology consulted, seen by Dr Mota, appreciate recommendations CBI with Amicar solution, hematuria resolved. DC jordan CBI, Staretd voiding trials 06/27. Discussed with Dr Mota appreciate recommendations. Remains without jordan, hematuria resolved. Monitor UOP Patient will require further urologic workup to include cystoscopy when medically stable (this can be performed as an outpatient). WILL NEED FOLLOW UP WITH [facility] AFTER DISCHARGE Code Status: FULL CODE Discussed Condition With: RN AND PT AND CM Discharge Planning: PENDING IMPROVEMENT CLEARANCE BY [facility]
[2018-07-02 06:59] LABS: Baso # (Auto) 0.1 th/mm3 (0.0-0.2); Baso % (Auto) 1.3 % (0.0-2.0); Eos # (Auto) 0.5 th/mm3 (0.0-0.4); Eos % (Auto) 9.7 % (0.0-4.0); Hemoglobin 8.1 gm/dL (13.0-17.0); Lymph # (Auto) 0.8 th/mm3 (1.0-4.8); Lymph % (Auto) 15.6 % (9.0-44.0); Mean Corpuscular Hemoglobin 29.1 pg (27.0-34.0); Mean Corpuscular Volume 85.6 fL (80.0-100.0); Mean Platelet Volume 7.4 fL (7.0-11.0); Mono # (Auto) 0.7 th/mm3 (0.0-0.9); Mono % (Auto) 14.3 % (0.0-8.0); Neut # (Auto) 2.9 th/mm3 (1.8-7.7); Neut % (Auto) 59.1 % (16.0-70.0); Platelet Count 150 th/mm3 (150-450); Red Cell Distribution Width 22.4 % (11.6-17.2); White Blood Count 4.9 th/mm3 (4.0-11.0)
[2018-07-02 07:26] LABS: Albumin 4.1 g/dL (3.4-5.0); Anion Gap 10 meq/L (5-15); Aspartate Aminotransferase 18 U/L (15-37); Blood Urea Nitrogen 18 mg/dL (7-18); Calcium 8.9 mg/dL (8.5-10.1); Carbon Dioxide 30.9 meq/L (21.0-32.0); Chloride 96 meq/L (98-107); Glomerular Filtration Rate 29 mL/min (>89); Glucose,Random 84 mg/dL (74-106); Magnesium 1.6 mg/dL (1.5-2.5); Potassium 4.2 meq/L (3.5-5.1); Sodium 137 meq/L (136-145)
[2018-07-02 07:30] LABS: Alanine Aminotransferase 13 U/L (12-78); Alkaline Phosphatase 64 U/L (45-117); Phosphorus 2.4 mg/dL (2.5-4.9); Total Protein 7.2 g/dL (6.4-8.2)
[2018-07-02] MEDS: Heparin Central Flush 100 UNIT/ML 5 ML Vial IV.FLUSH SCH (08:01)
[2018-07-02] MEDS: Metoprolol Tartrate 50 MG Tablet PO SCH ×2 (08:01→21:38)
[2018-07-02] MEDS: Nystatin 100,000 UNITS/GM Powder 15 GM Bottle TOPICAL SCH ×4 (08:25→21:42)
[2018-07-02] MEDS: Torsemide 20 MG Tablet PO SCH ×2 (08:25→21:40)
[2018-07-02] MEDS: HARVONI PO SCH (08:28)
--- NOTE | 2018-07-02 10:42 | P.PNIM ---
Subjective Interval history: 07-01 AWAIT [facility] TO APPROVE FOR OUTPT HD NO NEW COMPLAINTS NO SOB, NO CHEST PAIN, NO PALPITATIONS 10 AWAIT PLACEMENT FOR HD [facility] RN AND PT AND CM Physical Exam Vital signs: Vital Signs 07/01/18 11:05 07/01/18 12:00 07/01/18 12:35 Temperature 98.2 F Pulse Rate 65 Respiratory Rate 18 18 Blood Pressure 98/61 L Pulse Oximetry 100 100 07/01/18 16:54 07/01/18 18:29 07/01/18 19:01 Temperature Pulse Rate 75 Respiratory Rate 18 18 Blood Pressure 109/65 Pulse Oximetry 100 07/01/18 19:24 07/01/18 20:00 07/01/18 21:08 Temperature 98.3 F 98.2 F Pulse Rate 90 77 Respiratory Rate 14 18 Blood Pressure 84/51 L 97/55 L Pulse Oximetry 100 99 99 07/02/18 00:00 07/02/18 04:00 07/02/18 08:00 Temperature 98.7 F 98.7 F 98.1 F Pulse Rate 75 77 77 Respiratory Rate 18 18 16 Blood Pressure 108/57 L 85/42 L 99/57 L Pulse Oximetry 97 100 97 Intake & Output 07/01/18 07/02/18 07/02/18 18:59 06:59 18:59 Intake Total 480 / 480 620 / 620 Output Total 400 / 400 650 / 650 Balance 80 / 80 -30 / -30 Weight 89.1 kg Intake: Oral 480 / 480 620 / 620 Output: Urine 400 / 400 650 / 650 Other: # Voids 2 Date of Last Bowel Movement 07/01/18 07/01/18 07/01/18 # Bowel Movements 1 Narrative: GENERAL: Alert and Oriented x 3, appears in NAD. SKIN: Warm and dry, Perma cath right IJ CARDIOVASCULAR: Regular rate and rhythm without murmurs, gallops, or rubs. S1- S2 no S3 or S4 RESPIRATORY: Breath sounds equal bilaterally. No accessory muscle use. Decrease breath sounds bibasilar. GASTROINTESTINAL: Abdomen distended, nontender to palpation good bowel sounds throughout soft nontender MUSCULOSKELETAL: No cyanosis. Anasarca. BACK: Nontender without obvious deformity. No CVA tenderness. - Urinary Catheter Management Indwelling Urethral Catheter Cath placed during this visit: yes, but has since been removed by the nurse Reason for continuing: Gross Hematuria Insertion date: 06/04/18 Insertion time: 18:15 Removal date: 06/27/18 Removal time: 11:56 Results - Labs CBC & Chem 7: 07/02/18 05:24 07/02/18 05:24 Laboratory Results - last 24 hr 07/02/18 07/02/18 05:24 05:24 WBC 4.9 RBC 2.80 L Hgb 8.1 L Hct 24.0 L MCV 85.6 MCH 29.1 MCHC 34.0 RDW 22.4 H Plt Count 150 MPV 7.4 Neut % (Auto) 59.1 Lymph % (Auto) 15.6 Adams % (Auto) 14.3 H Eos % (Auto) 9.7 H Baso % (Auto) 1.3 Neut # (Auto) 2.9 Lymph # (Auto) 0.8 L Adams # (Auto) 0.7 Eos # (Auto) 0.5 H Baso # (Auto) 0.1 WBC Differential . Differential Comment Auto diff final Sodium 137 Potassium 4.2 Chloride 96 L Carbon Dioxide 30.9 Anion Gap 10 BUN 18 Creatinine 2.34 H Estimated GFR 29 L Random Glucose 84 Calcium 8.9 Phosphorus 2.4 L Magnesium 1.6 Total Bilirubin 1.2 H AST 18 ALT 13 Alkaline Phosphatase 64 Total Protein 7.2 Albumin 4.1 - Procedures EXAM DATE: 06/06/2018 4:32 PM EDT AGE/SEX: 58 years / Male INDICATIONS: Patient with history of chronic kidney disease in need of non tunneled dialysis catheter CLINICAL DATA: This is the patient's initial encounter. Patient reports that signs and symptoms have been present for 1 week and indicates a pain score of 8/ 10. MEDICAL/SURGICAL HISTORY: Hepatitis C. Liver cirrhosis, CKD, CAD, A-Fib, HLD, HTN, COPD, [place], CHF, Raynauds syndrome Cholecystectomy. Aortic valve replacement, Knee surgery, CABG, Lung surgery, Back surgery COMPARISON: No prior exams available for comparison. FLUORO TIME (min): 0.1 IMAGE SERIES: 1 ACCESS SITE: Right internal jugular vein DEVICE(S): 14 Malay double lumen X20CM Schon catheter . . PROCEDURE : 1. Ultrasound guided venipuncture. 2. Fluoroscopic guidance. 3. Central line placement. The risks, benefits and alternatives to the procedure were explained and verbal and written consent was obtained. The site was prepped in sterile fashion. Full sterile technique was used, including cap, mask, sterile gloves and gown and a large sterile sheet. Hand hygiene and 2% chlorhexidine prep was utilized per protocol for cutaneous antisepsis with appropriate dry time for site. Sterile gel and sterile probe cover were utilized for ultrasound guidance. The skin and subcutaneous tissues were infiltrated with local anesthetic solution. A suitable site above the vein was selected with ultrasound and fluoroscopic guidance. A small incision was made. The vein was accessed under direct ultrasound visualization using the micropuncture technique. The micropuncture set was exchanged for a 0.035 wire. The tract was dilated. The catheter was advanced into position under direct fluoroscopic visualization, and was advanced with the tip at the junction of the superior vena cava and rt atrium. The catheter was fixed in place with suture and a sterile dressing was applied. The patient tolerated the procedure well and there were no complications. CONCLUSION: 1. Uncomplicated line placement as above. Electronically signed by: Joe Garcia MD 06/07/2018 9:37 AM EDT Undergoing hemodialysis so far on and AND 06-09 Assessment and Plan - Plan Mr. Boogie is a pleasant 58-year-old male with a [facility], CKD who was admitted to the hospital after he had a blood work at the [facility] which shows hypokalemia and worsening creatinine. Acute on chronic kidney disease Hyperkalemia Hyponatremia -Creatinine 2.5 --> 1.80 --> 1.90 ==> 2.2 ==> 2.9 ==> 3.7 --->4.26--> Continue to slowly improve. Continues to improve with HD. His baseline creatinine is about 1.4-1.6. -Is being given Lasix 80 mg IV twice daily as well as Zaroxolyn and ProAmatine -Potassium has improved. -Continue Midodrine, albumin. DC Octreotide. -Needs dialysis at [place] per nephrology. Acute renal failure status post chemo dialysis catheter placed on 95 Status post hemodialysis per nephro Hypokalemia replace with potassium bath during hemodialysis Monitor electrolytes Patient with hepato renal syndrome With azotemia and Creatinine requiring hemodialysis Urine sodium low Patient with hepatorenal syndrome patient with HCV cirrhosis and on transplant list at [facility] Vas-Cath replaced 9/14 after patient accidentally pulled vas cath. . Monitor kidney function Continue HD Needs HD at [place]. CM is ff for arrangement Paroxysmal Atrial fibrillation -Patient takes Atenolol at home. Continue Metoprolol 25mg BID. -[id number] score 0. Although Aspirin would be beneficial, given his liver cirrhosis, it maybe risky to start Aspirin. 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 Liver cirrhosis Hepatitis C COAGULOPATHY -Patient is currently on Harvoni. Abdominal ultrasound did not reveal enough ascites to drain. -Patient follows up with [facility] with regards to liver transplant. - Morphine for abdominal pain. -Ammonia level is increased will make sure he is on lactulose may have to add rifaximin and increase lactulose to 3 times daily- monitor as need ammonia level Full code. INR is 1.7 due to liver disease. On Heparin 5000 unit SQ Q12hrs for DVT prophylaxis. PT AND OT TO EVAL AND TREAT consult pulmonary, ff OXYGEN NEEDED BIPAP AT NIGHT AND FOR NAPS HD PER NEPHROLOGY Pulled central line by accident .13 . Nephrology ff if needs more dialysis might need a new line Right arm possible cellulitis ?. Patient with swelling redness and pain of the right arm. Check CBC, CMP. Wound cultures if possible. Consult wound care. Wound care recommend clean soap and water, leave open, use UltraSorb if weeping DC Bactrim. Cont IV vanco with HD. Consult ID for recs for abx. Improved significantly. Continue hemodialysis as patient will anasarca. Keep arm elevated Patient however with more pain erythema and swelling of the right arm not improving , and anasarca otherwise is improving with HD. Check CPK, will consult hand surgeon Consult hand surg for eval for poss compartment sdr , discussed with Dr Osmel Velazquez , CT right elbow no signs of compartment sdr. , signed off. Gross hematuria traumatic Jordan insertion in the setting of elevated INR. Hematuria resolved. Urology consulted, seen by Dr Mota, appreciate recommendations CBI with Amicar solution, hematuria resolved. DC jordan CBI, Staretd voiding trials 06/27. Discussed with Dr Mota appreciate recommendations. Remains without jordan, hematuria resolved. Monitor UOP Patient will require further urologic workup to include cystoscopy when medically stable (this can be performed as an outpatient). WILL NEED FOLLOW UP WITH [facility] AFTER DISCHARGE WILL NEED HD NOW OUTPT Code Status: FULL CODE Discussed Condition With: RN AND PT AND CM Discharge Planning: PENDING [facility]
[2018-07-02] MEDS: rifAXIMin 550 MG Tablet PO SCH ×2 (11:29→23:27)
--- NOTE | 2018-07-02 15:31 | P.PN ---
Subjective Interval history: ALERT NO SOB Physical Exam Vital signs: Vital Signs 07/01/18 16:54 07/01/18 18:29 07/01/18 19:01 Temperature Pulse Rate 75 Respiratory Rate 18 18 Blood Pressure 109/65 Pulse Oximetry 100 07/01/18 19:24 07/01/18 20:00 07/01/18 21:08 Temperature 98.3 F 98.2 F Pulse Rate 90 77 Respiratory Rate 14 18 Blood Pressure 84/51 L 97/55 L Pulse Oximetry 100 99 99 07/02/18 00:00 07/02/18 04:00 07/02/18 08:00 Temperature 98.7 F 98.7 F 98.1 F Pulse Rate 75 77 77 Respiratory Rate 18 18 16 Blood Pressure 108/57 L 85/42 L 99/57 L Pulse Oximetry 97 100 97 07/02/18 12:00 Temperature 98.4 F Pulse Rate 75 Respiratory Rate 16 Blood Pressure 98/57 L Pulse Oximetry 98 Intake & Output 07/01/18 07/02/18 07/02/18 18:59 06:59 18:59 Intake Total 480 / 480 620 / 620 Output Total 400 / 400 650 / 650 Balance 80 / 80 -30 / -30 Weight 89.1 kg Intake: Oral 480 / 480 620 / 620 Output: Urine 400 / 400 650 / 650 Other: # Voids 2 Date of Last Bowel Movement 07/01/18 07/01/18 07/01/18 # Bowel Movements 1 Narrative: GENERAL: Alert and Oriented x 3, appears in NAD. SKIN: Warm and dry, Perma cath right IJ CARDIOVASCULAR: Regular rate and rhythm without murmurs, gallops, or rubs. S1- S2 no S3 or S4 RESPIRATORY: Breath sounds equal bilaterally. No accessory muscle use. Decrease breath sounds bibasilar. GASTROINTESTINAL: Abdomen distended, nontender to palpation good bowel sounds throughout soft nontender MUSCULOSKELETAL: No cyanosis. Anasarca. BACK: Nontender without obvious deformity. No CVA tenderness. - Urinary Catheter Management Indwelling Urethral Catheter Cath placed during this visit: yes, but has since been removed by the nurse Reason for continuing: Gross Hematuria Insertion date: 06/04/18 Insertion time: 18:15 Removal date: 06/27/18 Removal time: 11:56 Results - Labs CBC & Chem 7: 07/02/18 05:24 07/02/18 05:24 Laboratory Results - last 24 hr 07/02/18 07/02/18 05:24 05:24 WBC 4.9 RBC 2.80 L Hgb 8.1 L Hct 24.0 L MCV 85.6 MCH 29.1 MCHC 34.0 RDW 22.4 H Plt Count 150 MPV 7.4 Neut % (Auto) 59.1 Lymph % (Auto) 15.6 Thurston % (Auto) 14.3 H Eos % (Auto) 9.7 H Baso % (Auto) 1.3 Neut # (Auto) 2.9 Lymph # (Auto) 0.8 L Thurston # (Auto) 0.7 Eos # (Auto) 0.5 H Baso # (Auto) 0.1 WBC Differential . Differential Comment Auto diff final Sodium 137 Potassium 4.2 Chloride 96 L Carbon Dioxide 30.9 Anion Gap 10 BUN 18 Creatinine 2.34 H Estimated GFR 29 L Random Glucose 84 Calcium 8.9 Phosphorus 2.4 L Magnesium 1.6 Total Bilirubin 1.2 H AST 18 ALT 13 Alkaline Phosphatase 64 Total Protein 7.2 Albumin 4.1 - Procedures EXAM DATE: 06/06/2018 4:32 PM EDT AGE/SEX: 58 years / Male INDICATIONS: Patient with history of chronic kidney disease in need of non tunneled dialysis catheter CLINICAL DATA: This is the patient's initial encounter. Patient reports that signs and symptoms have been present for 1 week and indicates a pain score of 8/ 10. MEDICAL/SURGICAL HISTORY: Hepatitis C. Liver cirrhosis, CKD, CAD, A-Fib, HLD, HTN, COPD, [place], CHF, Raynauds syndrome Cholecystectomy. Aortic valve replacement, Knee surgery, CABG, Lung surgery, Back surgery COMPARISON: No prior exams available for comparison. FLUORO TIME (min): 0.1 IMAGE SERIES: 1 ACCESS SITE: Right internal jugular vein DEVICE(S): 14 Japanese double lumen X20CM Schon catheter . . PROCEDURE : 1. Ultrasound guided venipuncture. 2. Fluoroscopic guidance. 3. Central line placement. The risks, benefits and alternatives to the procedure were explained and verbal and written consent was obtained. The site was prepped in sterile fashion. Full sterile technique was used, including cap, mask, sterile gloves and gown and a large sterile sheet. Hand hygiene and 2% chlorhexidine prep was utilized per protocol for cutaneous antisepsis with appropriate dry time for site. Sterile gel and sterile probe cover were utilized for ultrasound guidance. The skin and subcutaneous tissues were infiltrated with local anesthetic solution. A suitable site above the vein was selected with ultrasound and fluoroscopic guidance. A small incision was made. The vein was accessed under direct ultrasound visualization using the micropuncture technique. The micropuncture set was exchanged for a 0.035 wire. The tract was dilated. The catheter was advanced into position under direct fluoroscopic visualization, and was advanced with the tip at the junction of the superior vena cava and rt atrium. The catheter was fixed in place with suture and a sterile dressing was applied. The patient tolerated the procedure well and there were no complications. CONCLUSION: 1. Uncomplicated line placement as above. Electronically signed by: Joe Garcia MD 06/07/2018 9:37 AM EDT Undergoing hemodialysis so far on 95 and 96 AND 9-8 Assessment and Plan - Plan RESPIRATORY FAILURE RENAL FAILURE CRISTIANE PLAN O2 NEEDED PAP THERAPY PULM TOILET INCREASE ACTIVITY WILL SIGN OFF , CALL PRN
--- NOTE | 2018-07-02 16:38 | P.PNNP ---
Subjective Interval history: Patient is awake denies any shortness of breath feels tired Physical Exam Vital signs: Vital Signs 07/01/18 16:54 07/01/18 18:29 07/01/18 19:01 Temperature Pulse Rate 75 Respiratory Rate 18 18 Blood Pressure 109/65 Pulse Oximetry 100 07/01/18 19:24 07/01/18 20:00 07/01/18 21:08 Temperature 98.3 F 98.2 F Pulse Rate 90 77 Respiratory Rate 14 18 Blood Pressure 84/51 L 97/55 L Pulse Oximetry 100 99 99 07/02/18 00:00 07/02/18 04:00 07/02/18 08:00 Temperature 98.7 F 98.7 F 98.1 F Pulse Rate 75 77 77 Respiratory Rate 18 18 16 Blood Pressure 108/57 L 85/42 L 99/57 L Pulse Oximetry 97 100 97 07/02/18 12:00 Temperature 98.4 F Pulse Rate 75 Respiratory Rate 16 Blood Pressure 98/57 L Pulse Oximetry 98 Intake & Output 07/01/18 07/02/18 07/02/18 18:59 06:59 18:59 Intake Total 480 / 480 620 / 620 Output Total 400 / 400 650 / 650 Balance 80 / 80 -30 / -30 Weight 89.1 kg Intake: Oral 480 / 480 620 / 620 Output: Urine 400 / 400 650 / 650 Other: # Voids 2 Date of Last Bowel Movement 07/01/18 07/01/18 07/01/18 # Bowel Movements 1 Narrative: GENERAL: Alert and Oriented x 3, appears in NAD. SKIN: Warm and dry, Perma cath right IJ CARDIOVASCULAR: Regular rate and rhythm without murmurs, gallops, or rubs. S1- S2 no S3 or S4 RESPIRATORY: Breath sounds equal bilaterally. No accessory muscle use. Decrease breath sounds bibasilar. GASTROINTESTINAL: Abdomen distended, nontender to palpation good bowel sounds throughout soft nontender MUSCULOSKELETAL: No cyanosis. Anasarca. BACK: Nontender without obvious deformity. No CVA tenderness. - Urinary Catheter Management Indwelling Urethral Catheter Cath placed during this visit: yes, but has since been removed by the nurse Reason for continuing: Gross Hematuria Insertion date: 06/04/18 Insertion time: 18:15 Removal date: 06/27/18 Removal time: 11:56 Assessment and Plan - Assessment (1) Acute renal failure superimposed on stage 3 chronic kidney disease Code(s): N17.9 - Acute kidney failure, unspecified; N18.3 - Chronic kidney disease, stage 3 (moderate) Status: Acute (2) Hyponatremia Code(s): E87.1 - Hypo-osmolality and hyponatremia Status: Acute (3) Cirrhosis Code(s): K74.60 - Unspecified cirrhosis of liver Status: Acute - Plan Hepatorenal syndrome patient with HCV cirrhosis and on hepatology at [facility] Hemodialysis Monday and Monday started on 06/[address] Creatinine at 2.34 with urinary output of 1 L /24 hours Hemodialysis on Monday with removal of 3 liters of fluid Avoid nephrotoxins as possible Epogen with dialysis Creatinine and urinary output improving.
[2018-07-03 06:37] LABS: Baso # (Auto) 0.1 th/mm3 (0.0-0.2); Baso % (Auto) 1.3 % (0.0-2.0); Eos # (Auto) 0.5 th/mm3 (0.0-0.4); Eos % (Auto) 9.8 % (0.0-4.0); Hematocrit 23.4 % (39.0-51.0); Hemoglobin 8.1 gm/dL (13.0-17.0); Lymph # (Auto) 0.9 th/mm3 (1.0-4.8); Lymph % (Auto) 18.2 % (9.0-44.0); Mean Corpuscular HGB Conc 34.5 % (32.0-36.0); Mean Corpuscular Hemoglobin 29.5 pg (27.0-34.0); Mean Corpuscular Volume 85.7 fL (80.0-100.0); Mean Platelet Volume 7.4 fL (7.0-11.0); Mono # (Auto) 0.7 th/mm3 (0.0-0.9); Mono % (Auto) 13.6 % (0.0-8.0); Neut # (Auto) 2.8 th/mm3 (1.8-7.7); Neut % (Auto) 57.1 % (16.0-70.0); Platelet Count 163 th/mm3 (150-450); Red Blood Count 2.73 mil/mm3 (4.50-5.90); Red Cell Distribution Width 22.2 % (11.6-17.2)
[2018-07-03 07:08] LABS: Albumin 4.1 g/dL (3.4-5.0); Anion Gap 8 meq/L (5-15); Aspartate Aminotransferase 21 U/L (15-37); Blood Urea Nitrogen 20 mg/dL (7-18); Calcium 9.2 mg/dL (8.5-10.1); Carbon Dioxide 32.9 meq/L (21.0-32.0); Chloride 97 meq/L (98-107); Glomerular Filtration Rate 29 mL/min (>89); Glucose,Random 82 mg/dL (74-106); Magnesium 1.6 mg/dL (1.5-2.5); Potassium 4.2 meq/L (3.5-5.1); Sodium 138 meq/L (136-145)
[2018-07-03 07:09] LABS: Alanine Aminotransferase 13 U/L (12-78); Phosphorus 2.9 mg/dL (2.5-4.9)
[2018-07-03 07:11] LABS: Alkaline Phosphatase 69 U/L (45-117)
[2018-07-03] MEDS: Heparin Central Flush 100 UNIT/ML 5 ML Vial IV.FLUSH SCH (09:00)
[2018-07-03] MEDS: Nystatin 100,000 UNITS/GM Powder 15 GM Bottle TOPICAL SCH ×5 (09:00→20:07)
[2018-07-03] MEDS: HARVONI PO SCH (09:00)
[2018-07-03] MEDS: Torsemide 20 MG Tablet PO SCH ×3 (09:00→20:06)
[2018-07-03] MEDS: Metoprolol Tartrate 50 MG Tablet PO SCH ×3 (09:00→20:07)
--- NOTE | 2018-07-03 11:55 | P.PNNP ---
Subjective Interval history: Patient is seen during dialysis Physical Exam Vital signs: Vital Signs 07/02/18 12:00 07/02/18 16:00 07/02/18 17:33 Temperature 98.4 F 98.3 F Pulse Rate 75 75 Respiratory Rate 16 18 18 Blood Pressure 98/57 L 98/55 L Pulse Oximetry 98 98 07/02/18 19:44 07/02/18 20:00 07/03/18 00:00 Temperature 98.1 F 98.9 F Pulse Rate 78 90 Respiratory Rate 20 19 Blood Pressure 96/56 L 110/59 L Pulse Oximetry 95 92 L 99 07/03/18 04:00 07/03/18 06:45 07/03/18 07:43 Temperature 97.9 F Pulse Rate 78 Respiratory Rate 19 18 18 Blood Pressure 100/59 L Pulse Oximetry 99 07/03/18 08:00 Temperature 98.1 F Pulse Rate 87 Respiratory Rate 20 Blood Pressure 103/55 L Pulse Oximetry 98 Intake & Output 07/02/18 07/03/18 07/03/18 18:59 06:59 18:59 Intake Total 600 / 600 Output Total 650 / 650 Balance 600 / 600 -650 / -650 Weight 93.3 kg Intake: Oral 600 / 600 Output: Urine 650 / 650 Other: # Voids 3 Date of Last Bowel Movement 07/01/18 07/01/18 07/01/18 Narrative: GENERAL: Well-nourished, well-developed patient. SKIN: Warm and dry. HEAD: Normocephalic. EYES: No scleral icterus. No injection or drainage. NECK: Supple, trachea midline. No JVD or lymphadenopathy. CARDIOVASCULAR: Regular rate and rhythm without murmurs, gallops, or rubs. RESPIRATORY: Breath sounds equal bilaterally. No accessory muscle use. GASTROINTESTINAL: Abdomen soft, non-tender, nondistended. EXTREMITIES: Edema 1+ NEUROLOGICAL: Awake, alert, and oriented x 3. Non-focal. - Urinary Catheter Management Indwelling Urethral Catheter Cath placed during this visit: yes, but has since been removed by the nurse Reason for continuing: Gross Hematuria Insertion date: 06/04/18 Insertion time: 18:15 Removal date: 06/27/18 Removal time: 11:56 Assessment and Plan - Assessment (1) Acute renal failure superimposed on stage 3 chronic kidney disease Code(s): N17.9 - Acute kidney failure, unspecified; N18.3 - Chronic kidney disease, stage 3 (moderate) Status: Acute (2) Hyponatremia Code(s): E87.1 - Hypo-osmolality and hyponatremia Status: Acute (3) Cirrhosis Code(s): K74.60 - Unspecified cirrhosis of liver Status: Acute - Plan Hepatorenal syndrome patient with HCV cirrhosis and on hepatology at [place] Hemodialysis Monday and Monday started on 06/[address] Creatinine at 2.35 with urinary output of .6 L /24 hours Hemodialysis seen during dialysis removal of 2.5 - 3 liters of fluid Avoid nephrotoxins as possible Epogen with dialysis Creatinine and urinary output improving.
[2018-07-03] MEDS: Heparin 10,000 UNITS/10 ML Vial (for IV use) OTHER PRN (12:53)
[2018-07-03] MEDS: rifAXIMin 550 MG Tablet PO SCH ×2 (15:01→22:39)
--- NOTE | 2018-07-03 16:34 | P.PN ---
Subjective Interval history: Patient seen and examined. States he feels good. Denies any fever or chills. Denies any chest pain or shortness of breath. Denies any nausea, vomiting or abdominal pain. States he is urinating well. He is asking for referral to [facility]. Physical Exam Vital signs: Vital Signs 07/02/18 17:33 07/02/18 19:44 07/02/18 20:00 Temperature 98.1 F Pulse Rate 78 Respiratory Rate 18 20 Blood Pressure 96/56 L Pulse Oximetry 95 92 L 07/03/18 00:00 07/03/18 04:00 07/03/18 06:45 Temperature 98.9 F 97.9 F Pulse Rate 90 78 Respiratory Rate 19 19 18 Blood Pressure 110/59 L 100/59 L Pulse Oximetry 99 99 07/03/18 07:43 07/03/18 08:00 07/03/18 13:18 Temperature 98.1 F Pulse Rate 87 84 Respiratory Rate 18 20 Blood Pressure 103/55 L 115/67 Pulse Oximetry 98 07/03/18 13:51 Temperature Pulse Rate Respiratory Rate 18 Blood Pressure Pulse Oximetry Intake & Output 07/02/18 07/03/18 07/03/18 18:59 06:59 18:59 Intake Total 600 / 600 Output Total 650 / 650 2900 / 2900 Balance 600 / 600 -650 / -650 -2900 / -2900 Weight 93.3 kg Intake: Oral 600 / 600 Output: Urine 650 / 650 400 / 400 Hemodialysis Amount 2500 / 2500 Other: # Voids 3 Date of Last Bowel Movement 07/01/18 07/01/18 07/01/18 Narrative: GENERAL: Alert and Oriented x 3, appears in NAD. SKIN: Warm and dry, Perma cath right IJ CARDIOVASCULAR: Regular rate and rhythm without murmurs, gallops, or rubs. S1- S2 no S3 or S4 RESPIRATORY: Breath sounds equal bilaterally. No accessory muscle use. Decrease breath sounds bibasilar. GASTROINTESTINAL: Abdomen distended, nontender to palpation good bowel sounds throughout soft nontender MUSCULOSKELETAL: No cyanosis. Anasarca. BACK: Nontender without obvious deformity. No CVA tenderness. - Urinary Catheter Management Indwelling Urethral Catheter Cath placed during this visit: yes, but has since been removed by the nurse Reason for continuing: Gross Hematuria Insertion date: 06/04/18 Insertion time: 18:15 Removal date: 06/27/18 Removal time: 11:56 Results - Labs CBC & Chem 7: 07/03/18 04:13 07/04/18 04:16 Laboratory Results - last 24 hr 07/03/18 07/03/18 04:13 04:13 WBC 5.0 RBC 2.73 L Hgb 8.1 L Hct 23.4 L MCV 85.7 MCH 29.5 MCHC 34.5 RDW 22.2 H Plt Count 163 MPV 7.4 Neut % (Auto) 57.1 Lymph % (Auto) 18.2 [place] % (Auto) 13.6 H Eos % (Auto) 9.8 H Baso % (Auto) 1.3 Neut # (Auto) 2.8 Lymph # (Auto) 0.9 L [place] # (Auto) 0.7 Eos # (Auto) 0.5 H Baso # (Auto) 0.1 WBC Differential . Differential Comment Auto diff final Sodium 138 Potassium 4.2 Chloride 97 L Carbon Dioxide 32.9 H Anion Gap 8 BUN 20 H Creatinine 2.35 H Estimated GFR 29 L Random Glucose 82 Calcium 9.2 Phosphorus 2.9 Magnesium 1.6 Total Bilirubin 1.4 H AST 21 ALT 13 Alkaline Phosphatase 69 Total Protein 7.0 Albumin 4.1 - Procedures EXAM DATE: 06/06/2018 4:32 PM EDT AGE/SEX: 58 years / Male INDICATIONS: Patient with history of chronic kidney disease in need of non tunneled dialysis catheter CLINICAL DATA: This is the patient's initial encounter. Patient reports that signs and symptoms have been present for 1 week and indicates a pain score of 8/ 10. MEDICAL/SURGICAL HISTORY: Hepatitis C. Liver cirrhosis, CKD, CAD, A-Fib, HLD, HTN, COPD, [place], CHF, Raynauds syndrome Cholecystectomy. Aortic valve replacement, Knee surgery, CABG, Lung surgery, Back surgery COMPARISON: No prior exams available for comparison. FLUORO TIME (min): 0.1 IMAGE SERIES: 1 ACCESS SITE: Right internal jugular vein DEVICE(S): 14 Wallisian double lumen X20CM Schon catheter . . PROCEDURE : 1. Ultrasound guided venipuncture. 2. Fluoroscopic guidance. 3. Central line placement. The risks, benefits and alternatives to the procedure were explained and verbal and written consent was obtained. The site was prepped in sterile fashion. Full sterile technique was used, including cap, mask, sterile gloves and gown and a large sterile sheet. Hand hygiene and 2% chlorhexidine prep was utilized per protocol for cutaneous antisepsis with appropriate dry time for site. Sterile gel and sterile probe cover were utilized for ultrasound guidance. The skin and subcutaneous tissues were infiltrated with local anesthetic solution. A suitable site above the vein was selected with ultrasound and fluoroscopic guidance. A small incision was made. The vein was accessed under direct ultrasound visualization using the micropuncture technique. The micropuncture set was exchanged for a 0.035 wire. The tract was dilated. The catheter was advanced into position under direct fluoroscopic visualization, and was advanced with the tip at the junction of the superior vena cava and rt atrium. The catheter was fixed in place with suture and a sterile dressing was applied. The patient tolerated the procedure well and there were no complications. CONCLUSION: 1. Uncomplicated line placement as above. Electronically signed by: Joe Garcia MD 06/07/2018 9:37 AM EDT Undergoing hemodialysis so far on and AND 06-09 Assessment and Plan - Plan Mr. Boogie is a pleasant 58-year-old male with a history of hepatitis C on [facility], CKD who was admitted to the hospital after he had a blood work at the [place] which shows hypokalemia and worsening creatinine. Acute on chronic kidney disease Hyperkalemia Hyponatremia -Creatinine 2.5 --> 1.80 --> 1.90 ==> 2.2 ==> 2.9 ==> 3.7 --->4.26--> Continue to slowly improve. Continues to improve with HD. His baseline creatinine is about 1.4-1.6. -Is being given Lasix 80 mg IV twice daily as well as Zaroxolyn and ProAmatine -Potassium has improved. -Continue Midodrine, albumin. [place] Octreotide. -Needs dialysis at [place] per nephrology. Acute renal failure status post chemo dialysis catheter placed on Status post hemodialysis per nephro Hypokalemia replace with potassium bath during hemodialysis Monitor electrolytes Patient with hepato renal syndrome With azotemia and Creatinine requiring hemodialysis Urine sodium low Patient with hepatorenal syndrome patient with HCV cirrhosis and on transplant list at [place] Vas-Cath replaced 06/15 after patient accidentally pulled vas cath. . Monitor kidney function Continue HD Needs HD at [place]. CM is ff for arrangement Paroxysmal Atrial fibrillation -Patient takes Atenolol at home. Continue Metoprolol 25mg BID. -[id number] score 0. Although Aspirin would be beneficial, given his liver cirrhosis, it maybe risky to start Aspirin. -Patient will discuss with his brazer induction after hospitalization. Liver cirrhosis Hepatitis C COAGULOPATHY -Patient is currently on Harvoni. Abdominal ultrasound did not reveal enough ascites to drain. -Patient follows up with [place] with regards to liver transplant. - Morphine for abdominal pain. -Ammonia level is increased will make sure he is on lactulose may have to add rifaximin and increase lactulose to 3 times daily- monitor as need ammonia level Full code. INR is 1.7 due to liver disease. On Heparin 5000 unit SQ Q12hrs for DVT prophylaxis. PT AND OT TO EVAL AND TREAT consult pulmonary, ff OXYGEN NEEDED BIPAP AT NIGHT AND FOR NAPS HD PER NEPHROLOGY Pulled central line by accident 06.14 . Nephrology ff if needs more dialysis might need a new line Right arm possible cellulitis ?. Patient with swelling redness and pain of the right arm. Check CBC, CMP. Wound cultures if possible. Consult wound care. Wound care recommend clean soap and water, leave open, use UltraSorb if weeping DC Bactrim. Cont IV vanco with HD. Consult ID for recs for abx. Improved significantly. Continue hemodialysis as patient will anasarca. Keep arm elevated Patient however with more pain erythema and swelling of the right arm not improving , and anasarca otherwise is improving with HD. Check CPK, will consult hand surgeon Consult hand surg for eval for poss compartment sdr , discussed with Dr Osmel Velazquez , CT right elbow no signs of compartment sdr. , signed off. Gross hematuria traumatic Jordan insertion in the setting of elevated INR. Hematuria resolved. Urology consulted, seen by Dr Mota, appreciate recommendations CBI with Amicar solution, hematuria resolved. DC jordan CBI, Staretd voiding trials 06/27. Discussed with Dr Mota appreciate recommendations. Remains without jordan, hematuria resolved. Monitor UOP Patient will require further urologic workup to include cystoscopy when medically stable (this can be performed as an outpatient). WILL NEED FOLLOW UP WITH [place] [facility] AFTER DISCHARGE WILL NEED HD NOW OUTPT Discussed Condition With: patient, , nursing staff Discharge Planning: Likely discharge in next 24 hours
[2018-07-04 05:18] LABS: Calcium 8.9 mg/dL (8.5-10.1); Carbon Dioxide 34.7 meq/L (21.0-32.0); Potassium 4.1 meq/L (3.5-5.1)
[2018-07-04] MEDS: Torsemide 20 MG Tablet PO SCH (08:50)
[2018-07-04] MEDS: HARVONI PO SCH (08:51)
[2018-07-04] MEDS: Heparin Central Flush 100 UNIT/ML 5 ML Vial IV.FLUSH SCH (09:05)
[2018-07-04 09:06] VITALS: RESP 20
[2018-07-04] MEDS: Nystatin 100,000 UNITS/GM Powder 15 GM Bottle TOPICAL SCH ×2 (09:06→15:41)
[2018-07-04] MEDS: Metoprolol Tartrate 50 MG Tablet PO SCH (09:07)
[2018-07-04 12:11] VITALS: BP 97/55; PULSE 73; TEMP 98.2; O2SAT 100
[2018-07-04] MEDS: rifAXIMin 550 MG Tablet PO SCH (12:36)
--- NOTE | 2018-07-04 14:05 | P.PNIM ---
Subjective Interval history: HAS BEEN AUTHORIZED FOR HD ON MONDAY, MONDAY AND MONDAY AT [facility] CAN DISCHARGE TO HOME TODAY DW RN AND PT AND CM WANTS TO GO HOME Physical Exam Vital signs: Vital Signs 07/03/18 16:00 07/03/18 20:00 07/03/18 20:08 Temperature 98.5 F 98.8 F Pulse Rate 84 84 Respiratory Rate 20 17 18 Blood Pressure 95/56 L 104/57 L Pulse Oximetry 96 98 07/04/18 00:00 07/04/18 00:35 07/04/18 03:14 Temperature 98.8 F Pulse Rate 73 Respiratory Rate 17 18 18 Blood Pressure 96/53 L Pulse Oximetry 96 07/04/18 05:20 07/04/18 08:00 07/04/18 12:00 Temperature 98.0 F 98.2 F Pulse Rate 70 73 Respiratory Rate 18 20 20 Blood Pressure 86/54 L 97/55 L Pulse Oximetry 94 L 100 Intake & Output 07/03/18 07/04/18 07/04/18 18:59 06:59 18:59 Intake Total 960 / 960 Output Total 3200 / 3200 Balance -2240 / -2240 Weight 93.3 kg Intake: Oral 960 / 960 Output: Urine 700 / 700 Hemodialysis Amount 2500 / 2500 Other: # Voids 3 Date of Last Bowel Movement 07/01/18 07/01/18 07/04/18 # Bowel Movements 0 Narrative: GENERAL: Alert and Oriented x 3, appears in NAD. SKIN: Warm and dry, Perma cath right IJ CARDIOVASCULAR: Regular rate and rhythm without murmurs, gallops, or rubs. S1- S2 no S3 or S4 RESPIRATORY: Breath sounds equal bilaterally. No accessory muscle use. Decrease breath sounds bibasilar. GASTROINTESTINAL: Abdomen distended, nontender to palpation good bowel sounds throughout soft nontender MUSCULOSKELETAL: No cyanosis. Anasarca. BACK: Nontender without obvious deformity. No CVA tenderness. - Urinary Catheter Management Indwelling Urethral Catheter Cath placed during this visit: yes, but has since been removed by the nurse Reason for continuing: Gross Hematuria Insertion date: 06/04/18 Insertion time: 18:15 Removal date: 06/27/18 Removal time: 11:56 Results - Labs CBC & Chem 7: 07/03/18 04:13 07/04/18 04:16 Laboratory Results - last 24 hr 07/04/18 04:16 Sodium 139 Potassium 4.1 Chloride 98 Carbon Dioxide 34.7 H Anion Gap 6 BUN 13 Creatinine 2.03 H Estimated GFR 34 L Random Glucose 114 H Calcium 8.9 - Imaging Abdomen Ultrasound 05/30/18 00:00 CONCLUSION: Perihepatic ascites, insufficient at present to warrant paracentesis Abdomen/Bladder Ultrasound 06/04/18 00:00 CONCLUSION: 1. Ascites, otherwise unremarkable. Catheter Placement 06/06/18 08:00 CONCLUSION: 1. Uncomplicated line placement as above. Chest X-Ray 06/09/18 00:00 CONCLUSION: 1. Hazy opacity in the right mid and lower lung suggests pleural effusion with or without infiltrate. 2. Large bore central line tip projects in the right atrium. Catheter Placement 06/15/18 00:00 CONCLUSION: 1. Uncomplicated line placement as above. Venous Doppler Study 06/18/18 00:00 CONCLUSION: 1. Negative for deep venous thrombosis right upper extremity. Abdomen/Bladder Ultrasound 06/21/18 00:00 CONCLUSION: 1. Unremarkable kidneys and decompressed urinary bladder. 2. Some free fluid within the pelvis. Catheter Placement 06/21/18 00:00 CONCLUSION: 1. Uncomplicated Dialysis catheter placement as above. 2. Of note, patient appears to be extremely volume overloaded with fluid flowing freely from the fresh chest wall incision as well as high central venous pressures making it difficult to maintain hemostasis at the cervical dermatotomy. [facility]. Elbow CT 06/22/18 00:00 CONCLUSION: 1. Moderate anasarca with possible cellulitis around the elbow. No acute bony abnormality. No discrete or drainable fluid collections are identified. 2. Moderate size right pleural effusion. Chest X-Ray 06/24/18 00:00 CONCLUSION: Very mild patchy parenchymal opacities and tiny right pleural effusion, all improved. - Procedures EXAM DATE: 06/06/2018 4:32 PM EDT AGE/SEX: 58 years / Male INDICATIONS: Patient with history of chronic kidney disease in need of non tunneled dialysis catheter CLINICAL DATA: This is the patient's initial encounter. Patient reports that signs and symptoms have been present for 1 week and indicates a pain score of 8/ 10. MEDICAL/SURGICAL HISTORY: Hepatitis C. Liver cirrhosis, CKD, CAD, A-Fib, HLD, HTN, COPD, [place], CHF, Raynauds syndrome Cholecystectomy. Aortic valve replacement, Knee surgery, CABG, Lung surgery, Back surgery COMPARISON: No prior exams available for comparison. FLUORO TIME (min): 0.1 IMAGE SERIES: 1 ACCESS SITE: Right internal jugular vein DEVICE(S): 14 Serbian double lumen X20CM Schon catheter . . PROCEDURE : 1. Ultrasound guided venipuncture. 2. Fluoroscopic guidance. 3. Central line placement. The risks, benefits and alternatives to the procedure were explained and verbal and written consent was obtained. The site was prepped in sterile fashion. Full sterile technique was used, including cap, mask, sterile gloves and gown and a large sterile sheet. Hand hygiene and 2% chlorhexidine prep was utilized per protocol for cutaneous antisepsis with appropriate dry time for site. Sterile gel and sterile probe cover were utilized for ultrasound guidance. The skin and subcutaneous tissues were infiltrated with local anesthetic solution. A suitable site above the vein was selected with ultrasound and fluoroscopic guidance. A small incision was made. The vein was accessed under direct ultrasound visualization using the micropuncture technique. The micropuncture set was exchanged for a 0.035 wire. The tract was dilated. The catheter was advanced into position under direct fluoroscopic visualization, and was advanced with the tip at the junction of the superior vena cava and rt atrium. The catheter was fixed in place with suture and a sterile dressing was applied. The patient tolerated the procedure well and there were no complications. CONCLUSION: 1. Uncomplicated line placement as above. Electronically signed by: Joe Garcia MD 06/07/2018 9:37 AM EDT Undergoing hemodialysis so far on and 96 AND 06-09 Assessment and Plan - Plan Mr. Boogie is a pleasant 58-year-old male with a history of hepatitis C on Harvoni, CKD who was admitted to the hospital after he had a blood work at the [place] which shows hypokalemia and worsening creatinine. Acute on chronic kidney disease Hyperkalemia Hyponatremia -Creatinine 2.5 --> 1.80 --> 1.90 ==> 2.2 ==> 2.9 ==> 3.7 --->4.26--> Continue to slowly improve. Continues to improve with HD. His baseline creatinine is about 1.4-1.6. -Is being given Lasix 80 mg IV twice daily as well as Zaroxolyn and ProAmatine -Potassium has improved. -Continue Midodrine, albumin. [place] Octreotide. -Needs dialysis at [place] per nephrology. Acute renal failure status post chemo dialysis catheter placed on 95 Status post hemodialysis per nephro Hypokalemia replace with potassium bath during hemodialysis Monitor electrolytes Patient with hepato renal syndrome With azotemia and Creatinine requiring hemodialysis Urine sodium low Patient with hepatorenal syndrome patient with HCV cirrhosis and on transplant list at [place] Vas-Cath replaced 06/15 after patient accidentally pulled vas cath. . Monitor kidney function Continue HD Needs HD at [place]. CM is ff for arrangement Paroxysmal Atrial fibrillation -Patient takes Atenolol at home. Continue Metoprolol 25mg BID. -[id number] score 0. Although Aspirin would be beneficial, given his liver cirrhosis, it maybe risky to start Aspirin. -Patient will discuss with his sandstone splitter after hospitalization. Liver cirrhosis Hepatitis C COAGULOPATHY -Patient is currently on Harvoni. Abdominal ultrasound did not reveal enough ascites to drain. -Patient follows up with [place] with regards to liver transplant. - Morphine for abdominal pain. -Ammonia level is increased will make sure he is on lactulose may have to add rifaximin and increase lactulose to 3 times daily- monitor as need ammonia level Full code. INR is 1.7 due to liver disease. On Heparin 5000 unit SQ Q12hrs for DVT prophylaxis. PT AND OT TO EVAL AND TREAT consult pulmonary, ff OXYGEN NEEDED BIPAP AT NIGHT AND FOR NAPS HD PER NEPHROLOGY Pulled central line by accident 06.14 . Nephrology ff if needs more dialysis might need a new line Right arm possible cellulitis ?. Patient with swelling redness and pain of the right arm. Check CBC, CMP. Wound cultures if possible. Consult wound care. Wound care recommend clean soap and water, leave open, use UltraSorb if weeping DC Bactrim. Cont IV vanco with HD. Consult ID for recs for abx. Improved significantly. Continue hemodialysis as patient will anasarca. Keep arm elevated Patient however with more pain erythema and swelling of the right arm not improving , and anasarca otherwise is improving with HD. Check CPK, will consult hand surgeon Consult hand surg for eval for poss compartment sdr , discussed with Dr Osmel Velazquez , CT right elbow no signs of compartment sdr. , signed off. Gross hematuria traumatic Jordan insertion in the setting of elevated INR. Hematuria resolved. Urology consulted, seen by Dr Mota, appreciate recommendations CBI with Amicar solution, hematuria resolved. DC jordan CBI, Staretd voiding trials 06/27. Discussed with Dr Mota appreciate recommendations. Remains without jordan, hematuria resolved. Monitor UOP Patient will require further urologic workup to include cystoscopy when medically stable (this can be performed as an outpatient). WILL NEED FOLLOW UP WITH [place] [facility] AFTER DISCHARGE- SET UP FOR HD MON, MON, MONDAY AT WILL NEED HD NOW OUTPT DC TO HOME TODAY WITH [facility] Code Status: FULL CODE Discussed Condition With: RN AND PT AND CM Discharge Planning: [facility]
--- NOTE | 2018-07-04 14:18 | P.DS ---
Date of admission: 05/29/18 18:37 Primary care physician: [facility] Attending physician on discharge: Fran Hawk Anticipated date of discharge: 07/04/18 Brief History from admission: Mr. Boogie is a pleasant 58-year-old male with a history of liver cirrhosis, chronic kidney disease, hepatitis C on Harvoni, aortic valve replacement who presented to the emergency department after he had a routine blood work that shows elevated potassium decreased sodium and elevated creatinine. Patient denies any chest pain, shortness of breath, fever or chills. However he does report increased abdominal distention and pain. He is on liver transplant list. He follows up with [place]. On arrival patient 's BMP shows sodium 128, potassium 5.7, BUN 56 and creatinine 2.5. Patient was given insulin and dextrose as well as calcium. Although his potassium improved to 4.9, in the morning on 05/30/2018 his potassium went back up again at 5.8. Creatinine has remained 2.5 despite IV hydration. Past medical history: Congenital heart disease with bicuspid aortic valve status post aortic valve replacement, liver cirrhosis, hepatitis C Past surgical history: Cholecystectomy, knee surgery, aortic valve replacement, lung surgery, CABG, back surgery Social history: Patient denies using tobacco, alcohol, illicit drugs. Family history. Mother, brother and sisters with diabetes mellitus. Patient update on day of discharge: Mr. Boogie is a pleasant 58-year-old male with a history of liver cirrhosis, chronic kidney disease, hepatitis C on Harvoni, aortic valve replacement who presented to the emergency department after he had a routine blood work that shows elevated potassium decreased sodium and elevated creatinine. Patient denies any chest pain, shortness of breath, fever or chills. However he does report increased abdominal distention and pain. He is on liver transplant list. He follows up with [place]. On arrival patient 's BMP shows sodium 128, potassium 5.7, BUN 56 and creatinine 2.5. Patient was given insulin and dextrose as well as calcium. Although his potassium improved to 4.9, in the morning on 05/30/2018 his potassium went back up again at 5.8. Creatinine has remained 2.5 despite IV hydration. Past medical history: Congenital heart disease with bicuspid aortic valve status post aortic valve replacement, liver cirrhosis, hepatitis C Past surgical history: Cholecystectomy, knee surgery, aortic valve replacement, lung surgery, CABG, back surgery Social history: Patient denies using tobacco, alcohol, illicit drugs. Family history. Mother, brother and sisters with diabetes mellitus. 8 Follow up for hepatorenal syndrome in a patient with Hep C, Cirrhosis. Patient is doing well. However, he complains of significant abdominal pain. No fever, chills. 8 Follow up for hepatorenal syndrome in a patient with Hep C, Cirrhosis. Patient is resting in bed, no acute concerns. No fever, chills. No CP, SOB. He had an episode of Afib. Apparently, he has had intermittent Afib before as well. He has been evaluated by a [employer] before. 9-1 Follow up for hepatorenal syndrome in a patient with Hep C, Cirrhosis. Patient reports anasarca and significant pain in his lower extremity joints. No fever, chills. 9-2 Follow up for hepatorenal syndrome. Patient complains of anasarca and difficulty initiating urination. No CP, fever, chills. 9-3 Follow-up for tunnel syndrome. Patient is currently doing well. He actually feels somewhat better today. Per nursing, however, he is not urinating and bladder scan shows no significant amount of urine in the bladder. This indicates the patient's renal function is getting worse and he is becoming anuric. We initiated a transfer to the [facility] yesterday. 06-05 PATIENT HAS BEEN TRANSFERRED FROM [place] FOR RENAL EVALUATIONS REMAINS CONFUSED WILL CHECK AMMONIA LEVEL TODAY AND TOMORROW PT AND OT TO EVAL AND TREAT HAD ABG DONE TODAY LOW BICARB REMAINS SOMEWHAT CONFUSED STILL DW RN AND PT AND FAMILY 06-06 IS IN ATRIAL FLUTTER-TACHYCARDIA LESS CONFUSED PT AND OT DW RN AND PT AND WILL TRY TO IMPROVE HEART RATE AM LABS 06-07 STARTED ON hemodialysis yesterday Had catheter placed on 95 for dialysis Feeling little better today Less confused Heart rate is better Having dialysis again today Hypokalemia is being replaced by potassium bath Discussed with patient and RN and film cleaner 06-08 HAD DIALYSIS ON 06-06 AND 06-07 LESS SWELLING MEDICATIONS ADJUSTED BY NEPHROLOGY FAMILY AT BEDSIDE QUESTIONS ANSWERED 06-09 HAVING HD TODAY LESS SWELLING MEDS BEING ADJUSTED DW RN AND PT 06-10 REMAINS ON BIPAP LESS SWELLING BECAME HYPOTENSIVE EARLIER TODAY GIVEN FLUID BOLUS MEDS ADJUSTED BY NEPHROLOGY HOPE DOES NOT HAVE TO GO ON VENT HAD HD YESTERDAY BUT IS STILL SOB WILL CONSULT PULMONARY 9-10 OFF BIPAP SEEN BY PULMONARY TO HAVE HD LATER TODAY DW PATIENT AND RN AND FAMILY AM LABS 06-12 SEEN BY GI NO NEW COMPLAINTS DEFER TO THEM ON HEPATITIS AND CIRRHOSIS MANAGEMENT AM LABS HAD HD SCHEDULED ON MONDAY, MON AND MONDAY PATIENT NEEDS HD MONDAY AND MON AND MONDAY [facility] CAN BE DCED TO HOME TODAY DS: Diagnosis - Discharge Diagnosis (1) Acute renal failure superimposed on stage 3 chronic kidney disease Status: Acute (2) Hyponatremia Status: Acute (3) Hyperkalemia Status: Resolved (4) Elevated liver enzymes Status: Acute (5) Hyperbilirubinemia Status: Acute (6) Acute hypotension Status: Acute (7) Acute hyperkalemia Status: Acute (8) Urinary retention Status: Acute (9) End stage liver disease Status: Acute (10) Hepatitis C antibody positive in blood Status: Acute (11) Cirrhosis of liver with ascites Status: Acute (12) Complications, dialysis, catheter, mechanical Status: Acute (13) Gross hematuria Status: Acute (14) Cirrhosis Status: Acute (15) CAD (coronary artery disease) Status: Acute (16) Afib Status: Acute (17) H/O aortic valve replacement Status: Acute (18) Hyperlipemia Status: Acute (19) H/O: HTN (hypertension) Status: Acute (20) COPD (chronic obstructive pulmonary disease) Status: Acute (21) Hepatitis C Status: Acute (22) Myocardial infarct Status: Acute (23) History of cholecystectomy Status: Acute (24) Chest pain Status: Acute DS: Medications - Discharge Medications Prescriptions: lactulose 30 ml PO BID #120 ml midodrine 10 mg PO TID@0700,1200,1700 #60 tab rifaximin [Xifaxan] 550 mg PO Q12H #60 tab tamsulosin 0.4 mg PO DAILY #30 cap torsemide 20 mg PO BID #60 tab DS: Summary Hospital Course: Mr. Boogie is a pleasant 58-year-old male with a history of liver cirrhosis, chronic kidney disease, hepatitis C on Harvoni, aortic valve replacement who presented to the emergency department after he had a routine blood work that shows elevated potassium decreased sodium and elevated creatinine. Patient denies any chest pain, shortness of breath, fever or chills. However he does report increased abdominal distention and pain. He is on liver transplant list. He follows up with [place]. On arrival patient 's BMP shows sodium 128, potassium 5.7, BUN 56 and creatinine 2.5. Patient was given insulin and dextrose as well as calcium. Although his potassium improved to 4.9, in the morning on 05/30/2018 his potassium went back up again at 5.8. Creatinine has remained 2.5 despite IV hydration. Past medical history: Congenital heart disease with bicuspid aortic valve status post aortic valve replacement, liver cirrhosis, hepatitis C Past surgical history: Cholecystectomy, knee surgery, aortic valve replacement, lung surgery, CABG, back surgery Social history: Patient denies using tobacco, alcohol, illicit drugs. Family history. Mother, brother and sisters with diabetes mellitus. 8-30 Follow up for hepatorenal syndrome in a patient with Hep C, Cirrhosis. Patient is doing well. However, he complains of significant abdominal pain. No fever, chills. 8-31 Follow up for hepatorenal syndrome in a patient with Hep C, Cirrhosis. Patient is resting in bed, no acute concerns. No fever, chills. No CP, SOB. He had an episode of Afib. Apparently, he has had intermittent Afib before as well. He has been evaluated by a [employer] before. 9-1 Follow up for hepatorenal syndrome in a patient with Hep C, Cirrhosis. Patient reports anasarca and significant pain in his lower extremity joints. No fever, chills. 9-2 Follow up for hepatorenal syndrome. Patient complains of anasarca and difficulty initiating urination. No CP, fever, chills. 9-3 Follow-up for tunnel syndrome. Patient is currently doing well. He actually feels somewhat better today. Per nursing, however, he is not urinating and bladder scan shows no significant amount of urine in the bladder. This indicates the patient's renal function is getting worse and he is becoming anuric. We initiated a transfer to the main hospital yesterday. 9 PATIENT HAS BEEN TRANSFERRED FROM [place] FOR RENAL EVALUATIONS REMAINS CONFUSED WILL CHECK AMMONIA LEVEL TODAY AND TOMORROW PT AND OT TO EVAL AND TREAT HAD ABG DONE TODAY LOW BICARB REMAINS SOMEWHAT CONFUSED STILL BRUNA RN AND PT AND FAMILY 9-5 IS IN ATRIAL FLUTTER-TACHYCARDIA LESS CONFUSED PT AND OT BRUNA RN AND PT AND WILL TRY TO IMPROVE HEART RATE AM LABS - STARTED ON hemodialysis yesterday Had catheter placed on 95 for dialysis Feeling little better today Less confused Heart rate is better Having dialysis again today Hypokalemia is being replaced by potassium bath Discussed with patient and RN and film cleaner 9- HAD DIALYSIS ON - AND 06-07 LESS SWELLING MEDICATIONS ADJUSTED BY NEPHROLOGY FAMILY AT BEDSIDE QUESTIONS ANSWERED 9- HAVING HD TODAY LESS SWELLING MEDS BEING ADJUSTED DW RN AND PT 9- REMAINS ON BIPAP LESS SWELLING BECAME HYPOTENSIVE EARLIER TODAY GIVEN FLUID BOLUS MEDS ADJUSTED BY NEPHROLOGY HOPE DOES NOT HAVE TO GO ON VENT HAD HD YESTERDAY BUT IS STILL SOB WILL CONSULT PULMONARY - OFF BIPAP SEEN BY PULMONARY TO HAVE HD LATER TODAY DW PATIENT AND RN AND FAMILY AM LABS 06-12 SEEN BY GI NO NEW COMPLAINTS DEFER TO THEM ON HEPATITIS AND CIRRHOSIS MANAGEMENT AM LABS HAD HD SCHEDULED ON MONDAY, MON AND MONDAY PATIENT NEEDS HD MONDAY AND MON AND MONDAY [facility] HHC CAN BE DCED TO HOME TODAY - Time Spent with Patient Total time spent providing and/or coordinating discharge services: Greater than 30 minutes - Quality: VTE Deep Vein Thrombosis/Pulmonary Embolism Present on Admission: No Exam Vital signs: Vital Signs 07/03/18 16:00 07/03/18 20:00 07/03/18 20:08 Temperature 98.5 F 98.8 F Pulse Rate 84 84 Respiratory Rate 20 17 18 Blood Pressure 95/56 L 104/57 L Pulse Oximetry 96 98 07/04/18 00:00 07/04/18 00:35 07/04/18 03:14 Temperature 98.8 F Pulse Rate 73 Respiratory Rate 17 18 18 Blood Pressure 96/53 L Pulse Oximetry 96 07/04/18 05:20 07/04/18 08:00 07/04/18 12:00 Temperature 98.0 F 98.2 F Pulse Rate 70 73 Respiratory Rate 18 20 20 Blood Pressure 86/54 L 97/55 L Pulse Oximetry 94 L 100 Intake & Output 07/03/18 07/04/18 07/04/18 18:59 06:59 18:59 Intake Total 960 / 960 Output Total 3200 / 3200 Balance -2240 / -2240 Weight 93.3 kg Intake: Oral 960 / 960 Output: Urine 700 / 700 Hemodialysis Amount 2500 / 2500 Other: # Voids 3 Date of Last Bowel Movement 07/01/18 07/01/18 07/04/18 # Bowel Movements 0 Narrative: GENERAL: Alert and Oriented x 3, appears in NAD. SKIN: Warm and dry, Perma cath right IJ CARDIOVASCULAR: Regular rate and rhythm without murmurs, gallops, or rubs. S1- S2 no S3 or S4 RESPIRATORY: Breath sounds equal bilaterally. No accessory muscle use. Decrease breath sounds bibasilar. GASTROINTESTINAL: Abdomen distended, nontender to palpation good bowel sounds throughout soft nontender MUSCULOSKELETAL: No cyanosis. Anasarca. BACK: Nontender without obvious deformity. No CVA tenderness. Results Procedures completed during hospitalization: EXAM DATE: 06/06/2018 4:32 PM EDT AGE/SEX: 58 years / Male INDICATIONS: Patient with history of chronic kidney disease in need of non tunneled dialysis catheter CLINICAL DATA: This is the patient's initial encounter. Patient reports that signs and symptoms have been present for 1 week and indicates a pain score of 8/ 10. MEDICAL/SURGICAL HISTORY: Hepatitis C. Liver cirrhosis, CKD, CAD, A-Fib, HLD, HTN, COPD, MA, CHF, Raynauds syndrome Cholecystectomy. Aortic valve replacement, Knee surgery, CABG, Lung surgery, Back surgery COMPARISON: No prior exams available for comparison. FLUORO TIME (min): 0.1 IMAGE SERIES: 1 ACCESS SITE: Right internal jugular vein DEVICE(S): 14 Frisian double lumen X20CM Schon catheter . . PROCEDURE : 1. Ultrasound guided venipuncture. 2. Fluoroscopic guidance. 3. Central line placement. The risks, benefits and alternatives to the procedure were explained and verbal and written consent was obtained. The site was prepped in sterile fashion. Full sterile technique was used, including cap, mask, sterile gloves and gown and a large sterile sheet. Hand hygiene and 2% chlorhexidine prep was utilized per protocol for cutaneous antisepsis with appropriate dry time for site. Sterile gel and sterile probe cover were utilized for ultrasound guidance. The skin and subcutaneous tissues were infiltrated with local anesthetic solution. A suitable site above the vein was selected with ultrasound and fluoroscopic guidance. A small incision was made. The vein was accessed under direct ultrasound visualization using the micropuncture technique. The micropuncture set was exchanged for a 0.035 wire. The tract was dilated. The catheter was advanced into position under direct fluoroscopic visualization, and was advanced with the tip at the junction of the superior vena cava and rt atrium. The catheter was fixed in place with suture and a sterile dressing was applied. The patient tolerated the procedure well and there were no complications. CONCLUSION: 1. Uncomplicated line placement as above. Electronically signed by: Joe Garcia MD 06/07/2018 9:37 AM EDT Undergoing hemodialysis so far on 95 and 96 AND 9-8 Completed studies during hospitalization: Laboratory Results CBC w Diff Slide review pending 05/29/18 17:50 WBC 5.0 th/mm3 (4.0-11.0) 07/03/18 04:13 RBC 2.73 mil/mm3 (4.50-5.90) L 07/03/18 04:13 Hgb 8.1 gm/dL (13.0-17.0) L 07/03/18 04:13 Hct 23.4 % (39.0-51.0) L 07/03/18 04:13 MCV 85.7 fL (80.0-100.0) 07/03/18 04:13 MCH 29.5 pg (27.0-34.0) 07/03/18 04:13 MCHC 34.5 % (32.0-36.0) 07/03/18 04:13 RDW 22.2 % (11.6-17.2) H 07/03/18 04:13 Plt Count 163 th/mm3 (150-450) 07/03/18 04:13 MPV 7.4 fL (7.0-11.0) 07/03/18 04:13 Prelim Diff (Auto) Slide review pending 06/13/18 03:42 Neut % (Auto) 57.1 % (16.0-70.0) 07/03/18 04:13 Lymph % (Auto) 18.2 % (9.0-44.0) 07/03/18 04:13 [place] % (Auto) 13.6 % (0.0-8.0) H 07/03/18 04:13 Eos % (Auto) 9.8 % (0.0-4.0) H 07/03/18 04:13 Baso % (Auto) 1.3 % (0.0-2.0) 07/03/18 04:13 Neut # (Auto) 2.8 th/mm3 (1.8-7.7) 07/03/18 04:13 Lymph # (Auto) 0.9 th/mm3 (1.0-4.8) L 07/03/18 04:13 [place] # (Auto) 0.7 th/mm3 (0.0-0.9) 07/03/18 04:13 Eos # (Auto) 0.5 th/mm3 (0.0-0.4) H 07/03/18 04:13 Baso # (Auto) 0.1 th/mm3 (0.0-0.2) 07/03/18 04:13 WBC Differential . 07/03/18 04:13 Diff Scan Auto diff confirmed 06/13/18 03:42 Seg Neuts % (Manual) 66 % (16-70) 05/29/18 17:50 Lymphocytes % (Manual) 26 % (9-44) 05/29/18 17:50 Monocytes % (Manual) 6 % (0-8) 05/29/18 17:50 Eosinophils % (Manual) 1 % (0-4) 05/29/18 17:50 Basophils % (Manual) 1 % (0-2) 05/29/18 17:50 Abs Neuts (Manual) 4.0 th/mm3 (1.8-7.7) 05/29/18 17:50 Differential Comment Auto diff final 07/03/18 04:13 Platelet Estimate Low (Normal) L 06/13/18 03:42 Platelet Morphology Normal (Normal) 06/13/18 03:42 RBC Morphology Normal (Normal) 05/29/18 17:50 Ovalocytes 1+ (None) H 06/13/18 03:42 Acanthocytes (Spur) 1+ (None) H 06/13/18 03:42 Keratocytes Occ (None) H 06/13/18 03:42 PT 18.7 sec (9.8-11.6) H 06/24/18 03:32 INR 1.8 Ratio 06/24/18 03:32 Puncture Site Right radial 06/10/18 20:00 Patient Temperature 98.6 06/10/18 20:00 O2 Saturation 96 % (90-100) 06/10/18 20:00 ABG pH 7.33 (7.380-7.420) L 06/10/18 20:00 ABG pCO2 46 mmHg (38-42) H 06/10/18 20:00 ABG pO2 123 mmHG (61-120) H 06/10/18 20:00 ABG HCO3 24 mmol/L (22-26) 06/10/18 20:00 ABG O2 Content 14.1 Vol % (12.0-20.0) 06/10/18 20:00 ABG Base Excess -1.4 mmol/L (-2-2) 06/10/18 20:00 ABG Methemoglobin 1.2 % (0-2) 06/10/18 20:00 Reagan Test Present 06/10/18 20:00 Hemoglobin 10.3 G/DL (12.0-16.0) L 06/10/18 20:00 Carboxyhemoglobin 1.4 % (0-4) 06/10/18 20:00 O2 Delivery Device Nasal cannula 06/10/18 20:00 Liter Flow 4.00 L/M 06/10/18 20:00 Vent Setting 09/0506/09/18 02:13 Inspired O2 21 % 06/10/18 20:00 Critical Value No 06/10/18 20:00 Sodium 139 meq/L (136-145) 07/04/18 04:16 Potassium 4.1 meq/L (3.5-5.1) 07/04/18 04:16 Chloride 98 meq/L (98-107) 07/04/18 04:16 Carbon Dioxide 34.7 meq/L (21.0-32.0) H 07/04/18 04:16 Anion Gap 6 meq/L (5-15) 07/04/18 04:16 BUN 13 mg/dL (7-18) 07/04/18 04:16 Creatinine 2.03 mg/dL (0.60-1.30) H 07/04/18 04:16 Estimated GFR 34 mL/min (>89) L 07/04/18 04:16 POC Glucose 106 mg/dl (68-110) 06/28/18 15:18 Random Glucose 114 mg/dL (74-106) H 07/04/18 04:16 Hemoglobin A1c 5.7 % (4.3-6.0) 06/05/18 05:29 Calcium 8.9 mg/dL (8.5-10.1) 07/04/18 04:16 Phosphorus 2.9 mg/dL (2.5-4.9) 07/03/18 04:13 Magnesium 1.6 mg/dL (1.5-2.5) 07/03/18 04:13 Total Bilirubin 1.4 mg/dL (0.2-1.0) H 07/03/18 04:13 Direct Bilirubin 0.8 mg/dL (0.0-0.2) H 05/31/18 07:59 Indirect Bilirubin 0.9 mg/dL (0.0-0.8) H 05/31/18 07:59 AST 21 U/L (15-37) 07/03/18 04:13 ALT 13 U/L (12-78) 07/03/18 04:13 Alkaline Phosphatase 69 U/L (45-117) 07/03/18 04:13 Ammonia 23 mcmol/L (11-32) 06/14/18 05:41 Total Creatine Kinase 76 U/L (39-308) 06/22/18 14:43 Total Protein 7.0 g/dL (6.4-8.2) 07/03/18 04:13 Albumin 4.1 g/dL (3.4-5.0) 07/03/18 04:13 TSH 2.880 uIU/mL (0.358-3.740) 06/05/18 10:41 Free T4 1.06 ng/dL (0.76-1.46) 06/05/18 10:41 Urine Color Yellow (Yellw/Straw) 05/29/18 19:30 Urine Clarity Clear (Clear) 05/29/18 19:30 Urine pH 5.5 (5.0-8.5) 05/29/18 19:30 Ur Specific [place] 1.020 (1.002-1.035) 05/29/18 19:30 Urine Protein Negative mg/dL (Neg-Trace) 05/29/18 19:30 Urine Glucose (UA) Negative mg/dL (Negative) 05/29/18 19:30 Urine Ketones Negative mg/dL (Negative) 05/29/18 19:30 Urine Occult Blood Negative (Negative) 05/29/18 19:30 Urine Nitrate Negative (Negative) 05/29/18 19:30 Urine Bilirubin Negative (Negative) 05/29/18 19:30 Urine Urobilinogen 0.2 mg/dL (Less than 2) 05/29/18 19:30 Ur Leukocyte Esterase Negative (Negative) 05/29/18 19:30 Urine RBC 0-3 /hpf (0-3) 05/29/18 19:30 Urine WBC 6-8 /hpf (0-5) H 05/29/18 19:30 Ur Squamous Epith Cells 0-5 /hpf (0-5) 05/29/18 19:30 Micro UA Comment Culture not ind 05/29/18 19:30 Ur Microscopic Review Microscopic reviewed 05/29/18 19:30 Urine Culture Comments Culture not ind 05/29/18 19:30 Ur Random Creatinine 67 mg/dL (27-300) 05/31/18 01:55 Ur Random Sodium 13 meq/L 05/31/18 01:55 Nasal Screen MRSA (PCR) Not detected (Negative) 06/04/18 15:35 Random Vancomycin 10.3 Comment 06/25/18 04:21 Hepatitis A IgM Ab Nonreactive (Nonreactive) 06/06/18 04:06 Hep Bs Antigen Nonreactive (Nonreactive) 06/06/18 04:06 Hep B Core IgM Ab Nonreactive (Nonreactive) 06/06/18 04:06 Hep C IgG Ab Reactive (Nonreactive) H 06/06/18 04:06 Impressions Abdomen Ultrasound 05/30/18 00:00 CONCLUSION: Perihepatic ascites, insufficient at present to warrant paracentesis Venous Doppler Study 06/18/18 00:00 CONCLUSION: 1. Negative for deep venous thrombosis right upper extremity. Abdomen/Bladder Ultrasound 06/21/18 00:00 CONCLUSION: 1. Unremarkable kidneys and decompressed urinary bladder. 2. Some free fluid within the pelvis. Catheter Placement 06/21/18 00:00 CONCLUSION: 1. Uncomplicated Dialysis catheter placement as above. 2. Of note, patient appears to be extremely volume overloaded with fluid flowing freely from the fresh chest wall incision as well as high central venous pressures making it difficult to maintain hemostasis at the cervical dermatotomy. Discussed urgent dialysis with the diaphysis center. Elbow CT 06/22/18 00:00 CONCLUSION: 1. Moderate anasarca with possible cellulitis around the elbow. No acute bony abnormality. No discrete or drainable fluid collections are identified. 2. Moderate size right pleural effusion. Chest X-Ray 06/24/18 00:00 CONCLUSION: Very mild patchy parenchymal opacities and tiny right pleural effusion, all improved. Labs on day of discharge: Labs from last 24 hours 07/04/18 04:16 Sodium 139 Potassium 4.1 Chloride 98 Carbon Dioxide 34.7 H Anion Gap 6 BUN 13 Creatinine 2.03 H Estimated GFR 34 L Random Glucose 114 H Calcium 8.9 - Impressions ITS Impressions Abdomen Ultrasound 05/30/18 00:00 CONCLUSION: Perihepatic ascites, insufficient at present to warrant paracentesis Venous Doppler Study 06/18/18 00:00 CONCLUSION: 1. Negative for deep venous thrombosis right upper extremity. Abdomen/Bladder Ultrasound 06/21/18 00:00 CONCLUSION: 1. Unremarkable kidneys and decompressed urinary bladder. 2. Some free fluid within the pelvis. Catheter Placement 06/21/18 00:00 CONCLUSION: 1. Uncomplicated Dialysis catheter placement as above. 2. Of note, patient appears to be extremely volume overloaded with fluid flowing freely from the fresh chest wall incision as well as high central venous pressures making it difficult to maintain hemostasis at the cervical dermatotomy. Discussed urgent dialysis with the diaphysis center. Elbow CT 06/22/18 00:00 CONCLUSION: 1. Moderate anasarca with possible cellulitis around the elbow. No acute bony abnormality. No discrete or drainable fluid collections are identified. 2. Moderate size right pleural effusion. Chest X-Ray 06/24/18 00:00 CONCLUSION: Very mild patchy parenchymal opacities and tiny right pleural effusion, all improved. Discharge Plan - Discharge Disposition Patient Disposition: W/Home Health Service - Discharge Condition Condition: Stable - Discharge Order Discharge Orders: Discharge Order (Routine); Ordered 07/04/18 Ordered By: Fran Hawk - Discharge Details Anticipated Discharge Date: 07/04/18 Discharge Comment: DC TO HOME WITH HHC TODAY AND OUTPT HD - Physicians Team Primary Care Provider: [facility] Attending Provider: Fran Hawk Other Providers: Tripp Saul MD ; Domo Wharton MD ; Jim Shea MD ; Sivakumar Page MD ; Rigoberto Mota MD ; Caroline Bolivar MD ; Liz Blakely MD
== END 2018-07-04 15:41 | disposition home health service (06) ==
LOC: PHED 16:32 → PHEDA 18:37 → PH3 20:40 → HCIS 06-04 13:26 → HIMC 06-04 13:57 → N06 06-13 22:01
PROVIDERS: ADMIT Hospitalist; ATTEND Hospitalist